=== PATIENT | male | born 1990 | race Caucasian/White ===

== ENCOUNTER 2020-08-21 13:03 | Outpatient (REF) | payer MEDICAID, SELFPAY ==
[2020-08-21 13:46] LABS: MANUAL DIFF FLAG NO
[2020-08-21 13:54] LABS: Basophils Percent Auto 0.4 % (0-2); Eosinophils Absolute Auto 0.2 X10*3/uL (0.0-0.4); Eosinophils Percent Auto 2.1 % (0-4); Hematocrit 34.7 % (42-52); Hemoglobin 11.7 g/dl (14.0-18.0); Imm Gran Abs Auto 0.06 X10*3/uL (0.00-0.03); Imm Gran Pct Auto 0.8 % (0.0-0.4); Lymphocytes Absolute Auto 1.3 X10*3/uL (1.2-4.9); Lymphocytes Percent Auto 18.7 % (20-40); Mean Corpuscular HGB Conc 33.7 g/dl (31.0-36.0); Mean Corpuscular Hemoglobin 32.8 pg (27.0-33.0); Mean Corpuscular Volume 97.2 fL (80-98); Mean Platelet Volume 8.7 fL (9.4-12.4); Monocytes Absolute Auto 0.6 X10*3/uL (0.1-1.2); Monocytes Percent Auto 7.7 % (2-11); Neutrophils Percent Auto 70.3 % (45-73); Platelet Count 207 X10*3/uL (160-400); Red Blood Count 3.57 X10*6/uL (4.60-5.80); Red Cell Distribution Width 11.6 % (11.0-16.0); White Blood Count 7.1 X10*3/uL (4.8-10.8)
[2020-08-21 14:11] LABS: Estimated Average Glucose 82 mg/dL; Hemoglobin A1c % 4.5 %
[2020-08-21 14:17] LABS: Valproate 57.3 mcg/mL (50.0-100.0)
[2020-08-21 16:08] LABS: Alanine Aminotransferase < 6 U/L (0-40); Albumin Level 4.1 g/dL (3.5-5.0); Alkaline Phosphatase 81 U/L (39-117); Aspartate Amino Transferase 12 U/L (5-37); Bilirubin Direct 0.3 mg/dL (0.0-0.5); Bilirubin Total 0.7 mg/dL (0.0-1.0)
== END 2020-08-21 13:04 | disposition home or self-care (01) ==
LOC: HO.LAB 13:03
PROVIDERS: Visit Provider Clinical Nurse Specialist Psychiatric/Mental Health
DX: Z79.899 Other long term (current) drug therapy (principal)
CPT/HCPCS: 36415; 80076; 80164; 83036; 85025

== ENCOUNTER 2020-12-04 17:59 | Emergency (ER) | payer MEDICAID, SELFPAY ==
--- NOTE | ~2020-12-04 | XR_ITS ---
EXAMINATION: XR ABDOMEN KUB CLINICAL INDICATION: Constipation COMPARISON: KUB February 23, 2011 TECHNIQUE: AP view of the abdomen. FINDINGS: No dilated air-filled loops of small bowel to suggest an obstructive process. Moderate stool burden throughout the majority the colon. Visualized lung bases are well aerated. No acute osseous abnormality. XR/XR KUB IMPRESSION: Moderate colonic stool burden suggesting constipation.
[2020-12-04 19:05] VITALS: BP 103/64; PULSE 79; RESP 16; TEMP 36.4; O2SAT 96; BMI 28.1
--- NOTE | 2020-12-04 23:01 | PC.NURSE ---
[phone] [facility] for ride home
[2020-12-04 23:03] VITALS: BP 107/61; PULSE 60; RESP 16; O2SAT 98
--- NOTE | 2020-12-04 23:26 | ED_ITS ---
HPI - General Adult General Chief complaint: General Medical Stated complaint: Constipation Time Seen by Provider: 12/04/20 23:26 Source: patient Mode of arrival: ambulatory History of Present Illness HPI narrative: 30-year-old male [facility] in [facility] a [facility] with more than 8 days of constipation, but patient states he has had an ongoing issue with constipation. He denies any associated fever, chills, nausea, vomiting, urinary pain /burning / frequency. He states he has tried everything . Related Data Allergies Allergy/AdvReac Type Severity Reaction Status Date / Time risperidone [From RISPERDAL] Allergy Unknown MUCLE Verified 12/04/20 19:14 TIGHTNESS Review of Systems Review of Systems: Pertinent positives and negatives as stated in HPI 10 point review of systems is otherwise negative. PMFSH Social History Social History Advance Directives: No Advance Directives Information Provided: Yes Physical Exam Vital Signs: Vital Signs: Last Vital Signs Temp 59 F L 12/05/20 01:17 Pulse 62 12/05/20 01:17 Resp 16 12/05/20 01:17 BP 116/69 12/05/20 01:17 Pulse Ox 98 12/05/20 01:17 Body Mass Index 28.1 VITAL SIGNS: Reviewed. GENERAL: Well developed, well nourished, in no acute distress. HEAD: Normocephalic/atraumatic EYES: PERRLA, EOMI OROPHARYNX: no oral lesions noted, posterior pharynx clear NECK: Supple, no adenopathy LUNGS: Normal breath sounds. No adventitious sounds or accessory muscle use. SpO2<98> CARDIOVASCULAR: Regular rate and rhythm without noted murmurs ABDOMEN: Soft, non-tender, non-distended with bowel sounds. NEUROLOGIC: Alert and oriented x 4. Course Course Course Narrative: This is a 30-year-old male with history and clinical presentation consistent with constipation. Patient will receive a combination of lactulose and Bisacodyl. On re-evaluation patient has not had a bowel movement after receiving Bisacodyl, and will receive lactulose prior to discharge so that he is able to use the bathroom in his regular setting. In addition, he will be provided with a regimen to improve regular bowel movements and instructed to follow-up with his primary care provider in the morning as there are no obstructive symptoms. Discharge Plan Discharge Clinical Impression: Constipation Patient Disposition: Home, Self-Care Instructions: Constipation (ED), Fleet Enema (ED), High Fiber Diet (ED) Additional Instructions: 1. resume all home medications as prescribed. 2. Increase your water intake. 3. You need to start taking MiraLax twice a day ( once in the morning and again in the evening). 4. You may use an [id number]-[id number] enema once a week to provide additional help in relieving your constipation. 5. You need to follow-up with your primary care provider in the morning to be re-evaluated and for further outpatient management for your constipation. Return to the ER if you develop fevers, chills, nausea, vomiting. Referrals: Diego Donohue PA [Primary Care Provider] - 2 days ( Please re-evaluate the patient for constipation.)
[2020-12-05] MEDS: bisacodyL 10 MG SUPP.RECT PR (00:28)
[2020-12-05 01:17] VITALS: BP 116/69; PULSE 62; RESP 16; TEMP 15; O2SAT 98
--- NOTE | 2020-12-05 02:04 | PC.NURSE ---
PATIENT HAVING NO EFFECT FROM THE SUPPOSITORY, PER MD AWAITING FOR DISCHARGE TO GIVE LACTULOSE. PLAN OF CARE WILL FOR FOR DISCHARGE TO LONG TERM.
[2020-12-05] MEDS: Lactulose 20 GM/30 ML SOLUTION PO (02:15)
== END 2020-12-05 02:49 | disposition home or self-care (01) ==
PROVIDERS: Emergency Provider Student in an Organized Health Care Education/Training Program; PCP Physician Assistant Medical
DX: K59.00 Constipation, unspecified (principal)
CPT/HCPCS: 74018; 99283; 99284

== ENCOUNTER 2021-06-30 20:29 | Inpatient (IN) | payer MEDICAID, OTHER, SELFPAY ==
--- NOTE | ~2021-06-30 | CT_ITS ---
EXAMINATION: CT HEAD WITHOUT CONTRAST CLINICAL INFORMATION: Head injury. COMPARISON: None TECHNIQUE: Contiguous axial imaging was performed from the skull base to vertex without intravenous administration of contrast. This CT examination was performed using dose optimization techniques as appropriate, variously including the following: *Automated exposure control *Adjustment of mA and/or kV according to patient size (this includes techniques or standardized protocols for targeted exams where dose is matched to indication/reason for exam; i.e. extremities or head) *Use of iterative reconstruction technique DLP: 765 mGy-cm FINDINGS: There is no evidence of acute intracranial hemorrhage or territorial infarction. No abnormal mass effect or midline shift is seen. Schuster to white matter differentiation is well preserved. No extra-axial fluid collections are identified. The ventricles are normal in size. There is no abnormal attenuation within the brain parenchyma. 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 This results in mild scalloping of the inner cortex of occipital bone. The osseous structures and soft tissues are normal. The mastoid air cells and visualized portions of the paranasal sinuses are well aerated. CT/CT head/brain wo con IMPRESSION: No acute intracranial process seen related to head injury. 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 Correlate with old CT brain exam, if available.
[2021-06-30 20:49] VITALS: BP 124/74; PULSE 102; RESP 20; TEMP 37.2; O2SAT 96; BMI 30.4
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
[2021-06-30 21:21] VITALS: TEMP 37.1
[2021-06-30 21:29] LABS: Appearance Urine CLEAR; Color Urine YELLOW; Glucose Urine UA NEG (NEG); Leukocyte Esterase Urine NEG (NEG); Nitrite Urine NEG (NEG); Specific Gravity - Urine 1.025 (1.005-1.025); Urine Blood NEG (NEG); Urine Ketones 5 MG/DL (NEG); Urine Protein NEG (NEG-TRACE)
[2021-06-30 21:34] LABS: COVID-19 Test Negative (Negative); IDNOW Serial# 9DD0AD1C
[2021-06-30 21:42] LABS: Amphetamine Screen Urine Not Detected (Not Detect); Barbiturates, Urine Not Detected (Not Detect); Benzodiazepines Screen Urine Not Detected (Not Detect); Cannabinoid Screen Urine Not Detected (Not Detect); Cocaine Screen Urine Not Detected (Not Detect); Fentanyl, urine Not Detected (Not Detect); Opiate Screen Urine Not Detected (Not Detect); Phencyclidine Screen Urine Not Detected (Not Detect)
[2021-06-30 23:15] LABS: MANUAL DIFF FLAG NO
[2021-06-30 23:19] LABS: Basophils Percent Auto 0.2 % (0-2); Eosinophils Absolute Auto 0.1 X10*3/uL (0.0-0.4); Eosinophils Percent Auto 1.3 % (0-4); Hematocrit 36.9 % (42.0-52.0); Hemoglobin 12.7 g/dl (14.0-18.0); Imm Gran Abs Auto 0.03 X10*3/uL (0.00-0.03); Imm Gran Pct Auto 0.3 % (0.0-0.4); Lymphocytes Absolute Auto 2.7 X10*3/uL (1.2-4.9); Mean Corpuscular HGB Conc 34.4 g/dl (31.0-36.0); Mean Corpuscular Hemoglobin 32.9 pg (27.0-33.0); Mean Corpuscular Volume 95.6 fL (80.0-98.0); Mean Platelet Volume 9.2 fL (9.4-12.4); Monocytes Absolute Auto 0.9 X10*3/uL (0.1-1.2); Monocytes Percent Auto 9.3 % (2-11); Neutrophils Absolute Auto 5.6 x10*3/uL (2.0-8.3); Neutrophils Percent Auto 59.9 % (45-73); Platelet Count 179 X10*3/uL (160-400); Red Blood Count 3.86 X10*6/uL (4.60-5.80); Red Cell Distribution Width 11.4 % (11.0-16.0); White Blood Count 9.3 X10*3/uL (4.8-10.8)
[2021-06-30 23:34] LABS: Alanine Aminotransferase 7 U/L (0-40); Albumin Level 3.6 g/dL (3.5-5.0); Alkaline Phosphatase 90 U/L (39-117); Anion Gap 12 (12-20); Aspartate Amino Transferase 11 U/L (5-37); Bilirubin Direct 0.2 mg/dL (0.0-0.5); Bilirubin Total 0.5 mg/dL (0.0-1.0); Blood Urea Nitrogen 18 mg/dL (9-16); Calcium 8.8 mg/dL (8.4-10.2); Carbon Dioxide 27 mmol/L (22-29); Chloride 105 mmol/L (96-108); Creatinine Clr Calc Pharmacy 102.1; Estimated Glomerular Filt Rate > 60; Glucose Random 99 mg/dL (60-115); Sodium 140 mmol/L (135-145); Total Protein 6.4 g/dL (6.5-8.0)
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
--- NOTE | 2021-07-01 07:17 | PC.NURSE ---
patient appears to remain asleep at present respirations are even and unlabored patient appears in no distress
[2021-07-01 08:18] VITALS: BP 114/67; PULSE 56; RESP 15; TEMP 36.4; O2SAT 98
[2021-07-01] MEDS: cloNIDine HCL 0.1 MG TABLET PO ×3 (08:50→20:15)
[2021-07-01] MEDS: Loratadine 10 MG TABLET PO (08:50)
[2021-07-01] MEDS: Divalproex Sodium 500 MG TABLET.DR PO (08:50)
[2021-07-01] MEDS: Omeprazole 40 MG CAPSULE.DR PO (08:50)
[2021-07-01] MEDS: FLUoxetine HCl 20 MG CAPSULE 40 MG PO (08:50)
[2021-07-01] MEDS: Divalproex Sodium 500 MG TABLET.DR 1000 MG PO (20:16)
[2021-07-01 20:33] VITALS: BP 120/80; PULSE 68; RESP 18; TEMP 36.2; O2SAT 100
--- NOTE | 2021-07-02 | ECG_ITS ---
Test Reason : med clearance Blood Pressure : / mmHG Vent. Rate : 052 BPM Atrial Rate : 052 BPM P-R Int : 138 ms QRS Dur : 096 ms QT Int : 446 ms P-R-T Axes : 010 039 021 degrees QTc Int : 414 ms Sinus bradycardia Otherwise normal ECG No previous ECGs available Referred By: Rodger Lane Electronically Signed By:ONI ALTMAN MD
--- NOTE | 2021-07-02 06:20 | PC.NURSE ---
Patient slept through the night, no distress observed/reported, behavior calm, quiet, and appropriate. Medication compliant, disposition per [facility] is section 12 inpatient bed search, no update on bed search, VSS, will continue to monitor.
[2021-07-02 06:35] VITALS: BP 107/58; PULSE 52; RESP 17; TEMP 37; O2SAT 95
--- NOTE | 2021-07-02 07:11 | PC.NURSE ---
patient appears to remain asleep presently respirations are even and unlabored, patient appears in no distress
[2021-07-02] MEDS: Loratadine 10 MG TABLET PO (08:40)
[2021-07-02] MEDS: Divalproex Sodium 500 MG TABLET.DR PO (08:40)
[2021-07-02] MEDS: FLUoxetine HCl 20 MG CAPSULE 40 MG PO (08:40)
[2021-07-02] MEDS: cloNIDine HCL 0.1 MG TABLET PO ×3 (08:41→22:11)
[2021-07-02] MEDS: Omeprazole 40 MG CAPSULE.DR PO (08:48)
--- NOTE | 2021-07-02 09:05 | PC.NURSE ---
t/w asked Kami white director of clients residence to bring in clients medication linzess so patient could be continued on it. Kami stated shed check with ditrector adn very likely drop off a supply. t/w asked her to call back should theres be any problems.
[2021-07-02 10:35] LABS: COVID-19 Test Negative (Negative); IDNOW Serial# 55D5AD1C
[2021-07-02 16:12] LABS: Valproate 69.9 mcg/mL (50.0-100.0)
[2021-07-02 16:35] VITALS: BMI 29.3
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
[2021-07-02 22:09] VITALS: BP 102/66; PULSE 62; TEMP 36.1; O2SAT 97
[2021-07-02] MEDS: Divalproex Sodium 500 MG TABLET.DR 1000 MG PO (22:11)
[2021-07-03 07:00] VITALS: BMI 29.5
[2021-07-03] MEDS: Omeprazole 40 MG CAPSULE.DR PO (08:13)
[2021-07-03] MEDS: cloNIDine HCL 0.1 MG TABLET PO ×2 (08:13→14:01)
[2021-07-03] MEDS: Loratadine 10 MG TABLET PO (08:13)
[2021-07-03] MEDS: FLUoxetine HCl 20 MG CAPSULE 40 MG PO (08:13)
[2021-07-03] MEDS: Divalproex Sodium 500 MG TABLET.DR PO (08:13)
[2021-07-03 08:15] VITALS: BP 143/85; PULSE 63; RESP 18; TEMP 36.9; O2SAT 98
[2021-07-03 09:16] LABS: Estimated Average Glucose 88 mg/dL; Hemoglobin A1c % 4.7 %
[2021-07-03 09:23] LABS: Cholesterol 181 mg/dL; HDL Cholesterol 34 mg/dL; LDL Cholesterol Calculated 108 mg/dl; Triglycerides 195 mg/dL
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
[2021-07-03 10:33] LABS: Folate 9.1 ng/mL (> or = 4.0); Vitamin B12 800 pg/mL (200-900)
[2021-07-03 13:06] LABS: Iron 221 mcg/dL (45-160); Percent Iron Saturation 54 % (15-50); Total Iron Binding Capacity 408 mcg/dL (228-428); Unsaturated Iron Binding 187 ug/dL
[2021-07-03 18:00] VITALS: BP 121/59; PULSE 48; RESP 16; TEMP 36.6; O2SAT 97
[2021-07-03] MEDS: Divalproex Sodium 500 MG TABLET.DR 1000 MG PO (21:26)
[2021-07-04] MEDS: Loratadine 10 MG TABLET PO (10:40)
[2021-07-04] MEDS: cloNIDine HCL 0.1 MG TABLET PO (10:40)
[2021-07-04] MEDS: Omeprazole 40 MG CAPSULE.DR PO (10:40)
[2021-07-04] MEDS: FLUoxetine HCl 20 MG CAPSULE 40 MG PO (10:41)
[2021-07-04] MEDS: Divalproex Sodium 500 MG TABLET.DR PO (10:41)
[2021-07-04 10:56] VITALS: BP 123/81; PULSE 92; RESP 16; TEMP 36.7; O2SAT 96
[2021-07-04] MEDS: Magnesium Hydrox/Alum Hydrox 30 ML ORAL.SUSP PO ×2 (12:33→22:52)
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
[2021-07-04] MEDS: hydrOXYzine HCL 25 MG TABLET PO (19:53)
[2021-07-04] MEDS: Divalproex Sodium 500 MG TABLET.DR 1000 MG PO (19:53)
[2021-07-04 19:55] VITALS: BP 134/66; PULSE 91; O2SAT 98
[2021-07-04] MEDS: traZODone HCL 50 MG TABLET PO ×2 (20:04→22:20)
[2021-07-05 08:14] LABS: Valproate 66.2 mcg/mL (50.0-100.0)
[2021-07-05 09:00] VITALS: BP 133/62; PULSE 92; RESP 16; TEMP 36.8; O2SAT 97
[2021-07-05] MEDS: Omeprazole 40 MG CAPSULE.DR PO (09:31)
[2021-07-05] MEDS: Divalproex Sodium 500 MG TABLET.DR PO (09:31)
[2021-07-05] MEDS: Loratadine 10 MG TABLET PO (09:31)
[2021-07-05] MEDS: FLUoxetine HCl 20 MG CAPSULE 40 MG PO (09:31)
--- NOTE | 2021-07-05 14:02 | P.PNPSI_ITS ---
Subjective Subjective Date of Service: 07/05/21 Reason For Visit: aggression Subjective Notes: Conditional Voluntary Interim History: The nursing staff reported that he was visible in the unit, social with peers. He has vomited a couple a times yesterday. He was incontinent in the shower yesterday. On interview, he refused to engage, on his bed. Mental Status Exam Mental Status Exam Patient Appearance: Appropriate Patient Orientation: Person Level of Consciousness: Awake Patient Behavior: Guarded Mood Description: Depressed Affect Description: Constricted Ability to Follow Directions: Fair Speech Pattern: Appropriate Hallucinations: None Delusions: Not Present Thought Process: Distracted Thought Content: positive for Poverty of Content Judgement: Fair Diagnostics Vital Signs (24Hr): Vital Signs - 24 hr 07/04/21 19:55 07/05/21 09:00 Temperature 98.3 F Pulse Rate 91 92 Respiratory Rate 16 Blood Pressure 134/66 133/62 Pulse Oximetry 98 97 BMI result Verdana 4 Body Mass Index Verdana 4 29.5 Verdana 4 Verdana 4 Labs Results: 06/30/21 23:10 06/30/21 23:10 Labs: Laboratory Results - last 48 hr 07/05/21 07:09 Valproic Acid 66.2 Medications Medications Current Medications Acetaminophen (Acetaminophen 325 Mg Tablet) 650 mg PO Q6H PRN PRN Reason: Headache/Pain Mild Scale (1-3) Al Hydroxide/Mg Hydroxide (Magnesium Hydrox/Alum Hydrox 30 Ml Oral.Susp) 30 ml PO Q6H PRN PRN Reason: Heartburn/Nausea Last Admin: 07/04/21 22:52 Dose: 30 ml Documented by: Divalproex Sodium (Divalproex Sodium 500 Mg Tablet.) 500 mg PO DAILY [facility] Last Admin: 07/05/21 09:31 Dose: 500 mg Documented by: Divalproex Sodium (Divalproex Sodium 500 Mg Tablet.) 1,000 mg PO BEDTIME [facility] Last Admin: 07/04/21 19:53 Dose: 1,000 mg Documented by: Fluoxetine HCl (Fluoxetine Hcl 20 Mg Capsule) 40 mg PO DAILY [facility] Last Admin: 07/05/21 09:31 Dose: 40 mg Documented by: Hydroxyzine HCl (Hydroxyzine Hcl 25 Mg Tablet) 25 mg PO Q6H PRN PRN Reason: Anxiety Last Admin: 07/04/21 19:53 Dose: 25 mg Documented by: Loratadine (Loratadine 10 Mg Tablet) 10 mg PO DAILY [facility] Last Admin: 07/05/21 09:31 Dose: 10 mg Documented by: Magnesium Hydroxide (Milk Of Magnesia 30 Ml Oral.Susp) 30 ml PO DAILY PRN PRN Reason: Constipation Patient Own Medication ( Linaclotide [Linzess ] 145 Mcg Capsule) 1 each PO DAILY [facility] Last Admin: 07/05/21 09:33 Dose: 1 each Documented by: Omeprazole (Omeprazole 40 Mg Capsule.) 40 mg PO DAILY [facility] Last Admin: 07/05/21 09:31 Dose: 40 mg Documented by: Quetiapine Fumarate (Quetiapine Fumarate 50 Mg Tablet) 50 mg PO BID PRN PRN Reason: psychosis Trazodone HCl (Trazodone Hcl 50 Mg Tablet) 50 mg PO BEDTIME PRN PRN Reason: Insomnia Last Admin: 07/04/21 22:20 Dose: 50 mg Documented by: Allergies Allergies Allergy/AdvReac Type Severity Reaction Status Date / Time risperidone [From Allergy Unknown MUCLE Verified 12/04/20 19:14 RISPERDAL] TIGHTNESS Assessment & Plan Assessment & Plan (1) Intellectual disability: Status: Acute Code(s): F79 - Unspecified intellectual disabilities (2) Intermittent explosive disorder in adult: Status: Acute Code(s): F63.81 - Intermittent explosive disorder Plan Mr. Medina is a 30 year-old male with hx of aggressive behaviors, impulsive at times, hx of intellectual disability. Pt was brought to [facility] via EMS after he reported HI towards female staff at . He also reported suicidal ideation. On the unit, pt reports reports of HI/SI was out of frustration. He is limited in that he has difficulty identifying triggers and effects of his behaviors. PLAN 1. Admit to M3, CV, 15 minutes checks 2. Continue depakote, check depakote level, adjust dose to therapeutic range, may add seroquel for aggression 3. Obtain collateral information 4. Aftercare planning 07/04: clonidine d/c due to dizziness. 07/05 bloodwork for tomorrow I spent minutes with the patient and/or on the patient floor today, greater than?50% of which was spent counseling/coordinating care. Reason for contiued inpatient stay Substantial Risk for: inability to function, rapid decompensation and med/psych decompensation
[2021-07-05] MEDS: Magnesium Hydrox/Alum Hydrox 30 ML ORAL.SUSP PO (20:34)
[2021-07-05 20:35] VITALS: BP 148/73; PULSE 84; TEMP 36.7; O2SAT 95
[2021-07-05] MEDS: Divalproex Sodium 500 MG TABLET.DR 1000 MG PO (21:34)
[2021-07-05] MEDS: hydrOXYzine HCL 25 MG TABLET PO (21:34)
[2021-07-05] MEDS: QUEtiapine Fumarate 50 MG TABLET PO (22:32)
[2021-07-06 06:44] LABS: MANUAL DIFF FLAG NO
[2021-07-06 06:47] LABS: Basophils Percent Auto 0.6 % (0-2); Eosinophils Absolute Auto 0.1 X10*3/uL (0.0-0.4); Hematocrit 37.3 % (42.0-52.0); Hemoglobin 13.2 g/dl (14.0-18.0); Imm Gran Abs Auto 0.06 X10*3/uL (0.00-0.03); Imm Gran Pct Auto 1.2 % (0.0-0.4); Lymphocytes Percent Auto 39.2 % (20-40); Mean Corpuscular HGB Conc 35.4 g/dl (31.0-36.0); Mean Corpuscular Hemoglobin 32.8 pg (27.0-33.0); Mean Corpuscular Volume 92.6 fL (80.0-98.0); Mean Platelet Volume 8.9 fL (9.4-12.4); Monocytes Absolute Auto 0.5 X10*3/uL (0.1-1.2); Monocytes Percent Auto 10.4 % (2-11); Neutrophils Absolute Auto 2.4 x10*3/uL (2.0-8.3); Neutrophils Percent Auto 46.6 % (45-73); Platelet Count 168 X10*3/uL (160-400); Red Blood Count 4.03 X10*6/uL (4.60-5.80); Red Cell Distribution Width 11.3 % (11.0-16.0); White Blood Count 5.1 X10*3/uL (4.8-10.8)
[2021-07-06 07:08] LABS: Anion Gap 12 (12-20); Blood Urea Nitrogen 14 mg/dL (9-16); Calcium 9.2 mg/dL (8.4-10.2); Carbon Dioxide 28 mmol/L (22-29); Chloride 102 mmol/L (96-108); Estimated Glomerular Filt Rate > 60; Glucose Random 90 mg/dL (60-115); Potassium 3.9 mmol/L (3.3-5.1); Sodium 138 mmol/L (135-145)
[2021-07-06 07:10] LABS: Valproate 73.8 mcg/mL (50.0-100.0)
[2021-07-06 08:30] VITALS: BP 131/63; PULSE 80; RESP 16; TEMP 36.8; O2SAT 95
[2021-07-06] MEDS: Divalproex Sodium 500 MG TABLET.DR PO (09:40)
[2021-07-06] MEDS: QUEtiapine Fumarate 50 MG TABLET PO ×2 (09:40→20:53)
[2021-07-06] MEDS: FLUoxetine HCl 20 MG CAPSULE 40 MG PO (09:40)
[2021-07-06] MEDS: Omeprazole 40 MG CAPSULE.DR PO (09:40)
[2021-07-06] MEDS: Loratadine 10 MG TABLET PO (09:40)
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
[2021-07-06] MEDS: hydrOXYzine HCL 25 MG TABLET PO (20:53)
[2021-07-06] MEDS: Magnesium Hydrox/Alum Hydrox 30 ML ORAL.SUSP PO (20:53)
[2021-07-06] MEDS: Divalproex Sodium 500 MG TABLET.DR 1000 MG PO (20:53)
[2021-07-06] MEDS: traZODone HCL 50 MG TABLET PO (20:53)
[2021-07-07 08:00] VITALS: BP 138/87; PULSE 100; TEMP 36.4; O2SAT 96
[2021-07-07] MEDS: FLUoxetine HCl 20 MG CAPSULE 40 MG PO (09:27)
[2021-07-07] MEDS: Omeprazole 40 MG CAPSULE.DR PO (09:28)
[2021-07-07] MEDS: Divalproex Sodium 500 MG TABLET.DR PO (09:28)
[2021-07-07] MEDS: Loratadine 10 MG TABLET PO (09:28)
--- NOTE | 2021-07-07 15:18 | HO.PSYCHPN ---
Subjective Subjective Date of Service: 07/07/21 Reason For Visit: aggression Subjective Notes: Conditional Voluntary Interim History: Pt reports he had difficult weekend as he had voices, which apparently per his mother is new concern. Pt reports feeling depressed, passive SI but denies any plan or intent to hurt himself. He reports sleeping and eating well. Pt has been mostly in his room, encouraged to attend groups. Medication Compliance: Yes Review of Systems Review of Systems Constitutional : No Fever, No Chills ENT/Mouth : No Ear Pain, No Nasal Congestion, No sore throat Eyes: No Eye Pain, No Swelling, No Redness Cardiovascular : No Chest Pain, No SOB Respiratory : No Cough, No Sputum, No Dyspnea Gastrointestinal : No Nausea, No Vomiting, No Diarrhea, No Hematochezia, No Melena Genitourinary : No Dysuria, No Urinary Frequency, No Hematuria Musculoskeletal : No Myalgias Skin : No Skin Lesions, No rash Neuro : No Weakness, No Numbness, No Paresthesias, No Dizziness, No Headache Psych : no Anxiety,no Depression, no SI/HI Heme/Lymph: No Lymphadenopathy Endocrine : No Polyuria, No Polydipsia All other systems reviewed and are negative Constitutional: Reports no additional constitutional complaints Eyes: Reports no additional eye complaints Cardiovascular: Denies chest pain, Denies chest pain at rest, Denies diaphoresis, Denies lightheadedness and Denies dyspnea Respiratory: Denies dyspnea Gastrointestinal: Denies diarrhea Mental Status Exam Mental Status Exam Narrative: Appearance: casually groomed, fair hygiene in NAD Behavior:cooperative psychomotor: no agitation or retardation noted Speech: clear, normal rate/rhythm/volume, spontaneous Thought process: linear Thought content:no signs of psychosis, wanting to go to new where friend lives Mood: okay Affect: congruent, non labile SI:denies HI:denies VH/AH:denies Delusions:none Insight/judgment:poor x 2. Memory/cog: alert, oriented x 3. underlying intellectual disability. Diagnostics Vital Signs (24Hr): Vital Signs - 24 hr 07/07/21 08:00 Temperature 97.5 F Pulse Rate 100 Blood Pressure 138/87 Pulse Oximetry 96 BMI result Body Mass Index 29.5 Labs Results: 07/06/21 06:39 07/06/21 06:39 Labs: Laboratory Results - last 48 hr 07/06/21 07/06/21 06:39 06:39 WBC 5.1 RBC 4.03 L Hgb 13.2 L Hct 37.3 L MCV 92.6 MCH 32.8 MCHC 35.4 RDW 11.3 Plt Count 168 MPV 8.9 L Immature Gran % (Auto) 1.2 H Neut % (Auto) 46.6 Lymph % (Auto) 39.2 Woodruff % (Auto) 10.4 Eos % (Auto) 2.0 Baso % (Auto) 0.6 Lymph # (Auto) 2.0 Woodruff # (Auto) 0.5 Eos # (Auto) 0.1 Baso # (Auto) 0.0 Abs Immat Gran (auto) 0.06 H Absolute Neuts (auto) 2.4 Absolute Nucleated RBC 0.000 Nucleated RBC % (auto) 0.0 Sodium 138 Potassium 3.9 Chloride 102 Carbon Dioxide 28 Anion Gap 12 BUN 14 Creatinine 0.91 Estim Creat Clear Calc 125.0 Estimated GFR > 60 Random Glucose 90 Calcium 9.2 Valproic Acid 73.8 Medications Medications Current Medications Acetaminophen (Acetaminophen 325 Mg Tablet) 650 mg PO Q6H PRN PRN Reason: Headache/Pain Mild Scale (1-3) Al Hydroxide/Mg Hydroxide (Magnesium Hydrox/Alum Hydrox 30 Ml Oral.Susp) 30 ml PO Q6H PRN PRN Reason: Heartburn/Nausea Last Admin: 07/06/21 20:53 Dose: 30 ml Documented by: Divalproex Sodium (Divalproex Sodium 500 Mg Tablet.) 500 mg PO DAILY [facility] Last Admin: 07/07/21 09:28 Dose: 500 mg Documented by: Divalproex Sodium (Divalproex Sodium 500 Mg Tablet.) 1,000 mg PO BEDTIME [facility] Last Admin: 07/06/21 20:53 Dose: 1,000 mg Documented by: Fluoxetine HCl (Fluoxetine Hcl 20 Mg Capsule) 40 mg PO DAILY [facility] Last Admin: 07/07/21 09:27 Dose: 40 mg Documented by: Hydroxyzine HCl (Hydroxyzine Hcl 25 Mg Tablet) 25 mg PO Q6H PRN PRN Reason: Anxiety Last Admin: 07/06/21 20:53 Dose: 25 mg Documented by: Loratadine (Loratadine 10 Mg Tablet) 10 mg PO DAILY [facility] Last Admin: 07/07/21 09:28 Dose: 10 mg Documented by: Magnesium Hydroxide (Milk Of Magnesia 30 Ml Oral.Susp) 30 ml PO DAILY PRN PRN Reason: Constipation Patient Own Medication ( Linaclotide [Linzess ] 145 Mcg Capsule) 1 each PO DAILY [facility] Last Admin: 07/07/21 09:28 Dose: 1 each Documented by: Omeprazole (Omeprazole 40 Mg Capsule.) 40 mg PO DAILY [facility] Last Admin: 07/07/21 09:28 Dose: 40 mg Documented by: Quetiapine Fumarate (Quetiapine Fumarate 50 Mg Tablet) 50 mg PO BID PRN PRN Reason: psychosis Last Admin: 07/06/21 20:53 Dose: 50 mg Documented by: Trazodone HCl (Trazodone Hcl 50 Mg Tablet) 50 mg PO BEDTIME PRN PRN Reason: Insomnia Last Admin: 07/06/21 20:53 Dose: 50 mg Documented by: Allergies Allergies Allergy/AdvReac Type Severity Reaction Status Date / Time risperidone [From RISPERDAL] Allergy Unknown MUCLE Verified 12/04/20 19:14 TIGHTNESS Assessment & Plan Assessment & Plan (1) Intellectual disability: Status: Acute Code(s): F79 - Unspecified intellectual disabilities (2) Intermittent explosive disorder in adult: Status: Acute Code(s): F63.81 - Intermittent explosive disorder Plan Mr. Medina is a 30 year-old male with hx of aggressive behaviors, impulsive at times, hx of intellectual disability. Pt was brought [place] [facility] via [place] after he reported HI towards female staff at . He also reported suicidal ideation. On the unit, pt reports reports of HI/SI was out of frustration. He is limited in that he has difficulty identifying triggers and effects of his behaviors. PLAN 1. Admit to M3, CV, 15 minutes checks 2. Continue depakote, check depakote level, adjust dose to therapeutic range, may add seroquel for aggression 3. Obtain collateral information 4. Aftercare planning 07/04: clonidine d/c due to dizziness. 07/05 bloodwork wnl, therapeutic level of VALP. 07/07 scheduled seroquel 100mg po qhs and prn seroquel 50mg po q6hrs. I spent minutes with the patient and/or on the patient floor today, greater than?50% of which was spent counseling/coordinating care. Reason for contiued inpatient stay Substantial Risk for: harm to self and harm to others
[2021-07-07] MEDS: QUEtiapine Fumarate 100 MG TABLET PO (23:06)
[2021-07-07] MEDS: Divalproex Sodium 500 MG TABLET.DR 1000 MG PO (23:06)
[2021-07-07 23:12] VITALS: BP 129/75; PULSE 86; TEMP 36.9; O2SAT 97
[2021-07-08 06:00] VITALS: BP 125/60; PULSE 75; RESP 16; TEMP 36.8; O2SAT 98
[2021-07-08] MEDS: Loratadine 10 MG TABLET PO (10:11)
[2021-07-08] MEDS: Omeprazole 40 MG CAPSULE.DR PO (10:12)
[2021-07-08] MEDS: FLUoxetine HCl 20 MG CAPSULE 40 MG PO (10:12)
[2021-07-08] MEDS: Divalproex Sodium 500 MG TABLET.DR PO (10:12)
--- NOTE | 2021-07-08 11:11 | P.PNPSI_ITS ---
Subjective Subjective Date of Service: 07/08/21 Reason For Visit: aggression Subjective Notes: Conditional Voluntary Interim History: Pt reports sleeping better last night. He reports less AH. He denies SI/HI. He has been mostly in bed, encouraged to attend groups. He is taking medications as prescribed, reports he will be open to return to . Per nursing, no behavioral concerns, taking medications as prescribed. Medication Compliance: Yes Side effects from medications: No Attending Groups: Intermittent Review of Systems Review of Systems Constitutional : No Fever, No Chills ENT/Mouth : No Ear Pain, No Nasal Congestion, No sore throat Eyes: No Eye Pain, No Swelling, No Redness Cardiovascular : No Chest Pain, No SOB Respiratory : No Cough, No Sputum, No Dyspnea Gastrointestinal : No Nausea, No Vomiting, No Diarrhea, No Hematochezia, No Melena Genitourinary : No Dysuria, No Urinary Frequency, No Hematuria Musculoskeletal : No Myalgias Skin : No Skin Lesions, No rash Neuro : No Weakness, No Numbness, No Paresthesias, No Dizziness, No Headache Psych : no Anxiety,no Depression, no SI/HI Heme/Lymph: No Lymphadenopathy Endocrine : No Polyuria, No Polydipsia All other systems reviewed and are negative Constitutional: Reports no additional constitutional complaints Eyes: Reports no additional eye complaints Cardiovascular: Denies chest pain, Denies chest pain at rest, Denies diaphoresis, Denies lightheadedness and Denies dyspnea Respiratory: Denies dyspnea Gastrointestinal: Denies diarrhea Mental Status Exam Mental Status Exam Narrative: Appearance: casually groomed, fair hygiene in NAD Behavior:cooperative psychomotor: no agitation or retardation noted Speech: clear, normal rate/rhythm/volume, spontaneous Thought process: linear Thought content:no signs of psychosis, wanting to go to new where friend lives Mood: okay Affect: congruent, non labile SI:denies HI:denies VH/AH:denies Delusions:none Insight/judgment:poor x 2. Memory/cog: alert, oriented x 3. underlying intellectual disability. Diagnostics Vital Signs (24Hr): Vital Signs - 24 hr 07/07/21 23:12 Temperature 98.4 F Pulse Rate 86 Blood Pressure 129/75 Pulse Oximetry 97 BMI result Verdana 4 Body Mass Index Verdana 4 29.5 Verdana 4 Verdana 4 Labs Results: 07/06/21 06:39 07/06/21 06:39 Medications Medications Current Medications Acetaminophen (Acetaminophen 325 Mg Tablet) 650 mg PO Q6H PRN PRN Reason: Headache/Pain Mild Scale (1-3) Al Hydroxide/Mg Hydroxide (Magnesium Hydrox/Alum Hydrox 30 Ml Oral.Susp) 30 ml PO Q6H PRN PRN Reason: Heartburn/Nausea Last Admin: 07/06/21 20:53 Dose: 30 ml Documented by: Divalproex Sodium (Divalproex Sodium 500 Mg Tablet.) 500 mg PO DAILY [facility] Last Admin: 07/08/21 10:12 Dose: 500 mg Documented by: Divalproex Sodium (Divalproex Sodium 500 Mg Tablet.) 1,000 mg PO BEDTIME [facility] Last Admin: 07/07/21 23:06 Dose: 1,000 mg Documented by: Fluoxetine HCl (Fluoxetine Hcl 20 Mg Capsule) 40 mg PO DAILY [facility] Last Admin: 07/08/21 10:12 Dose: 40 mg Documented by: Hydroxyzine HCl (Hydroxyzine Hcl 25 Mg Tablet) 25 mg PO Q6H PRN PRN Reason: Anxiety Last Admin: 07/06/21 20:53 Dose: 25 mg Documented by: Loratadine (Loratadine 10 Mg Tablet) 10 mg PO DAILY [facility] Last Admin: 07/08/21 10:11 Dose: 10 mg Documented by: Magnesium Hydroxide (Milk Of Magnesia 30 Ml Oral.Susp) 30 ml PO DAILY PRN PRN Reason: Constipation Patient Own Medication ( Linaclotide [Linzess ] 145 Mcg Capsule) 1 each PO DAILY [facility] Last Admin: 07/08/21 10:11 Dose: 1 each Documented by: Omeprazole (Omeprazole 40 Mg Capsule.) 40 mg PO DAILY [facility] Last Admin: 07/08/21 10:12 Dose: 40 mg Documented by: Quetiapine Fumarate (Quetiapine Fumarate 50 Mg Tablet) 50 mg PO Q6H PRN PRN Reason: psychosis/anxiety Quetiapine Fumarate (Quetiapine Fumarate 100 Mg Tablet) 100 mg PO BEDTIME [facility] Last Admin: 07/07/21 23:06 Dose: 100 mg Documented by: Trazodone HCl (Trazodone Hcl 50 Mg Tablet) 50 mg PO BEDTIME PRN PRN Reason: Insomnia Last Admin: 07/06/21 20:53 Dose: 50 mg Documented by: Allergies Allergies Allergy/AdvReac Type Severity Reaction Status Date / Time risperidone [From Allergy Unknown MUCLE Verified 12/04/20 19:14 RISPERDAL] TIGHTNESS Assessment & Plan Assessment & Plan (1) Intellectual disability: Status: Acute Code(s): F79 - Unspecified intellectual disabilities (2) Intermittent explosive disorder in adult: Status: Acute Code(s): F63.81 - Intermittent explosive disorder Plan Mr. Medina is a 30 year-old male with hx of aggressive behaviors, impulsive at times, hx of intellectual disability. Pt was brought to [facility] via EMS after he reported HI towards female staff at . He also reported suicidal ideation. On the unit, pt reports reports of HI/SI was out of frustration. He is limited in that he has difficulty identifying triggers and effects of his behaviors. PLAN 1. Admit to M3, CV, 15 minutes checks 2. Continue depakote, check depakote level, adjust dose to therapeutic range, may add seroquel for aggression 3. Obtain collateral information 4. Aftercare planning 07/04: clonidine d/c due to dizziness. 07/05 bloodwork wnl, therapeutic level of VALP. 07/07 scheduled seroquel 100mg po qhs and prn seroquel 50mg po q6hrs. I spent minutes with the patient and/or on the patient floor today, greater than?50% of which was spent counseling/coordinating care. Reason for contiued inpatient stay Substantial Risk for: harm to others
[2021-07-08 21:00] VITALS: BP 134/86; PULSE 88; RESP 18; TEMP 36.9; O2SAT 96
[2021-07-08] MEDS: Divalproex Sodium 500 MG TABLET.DR 1000 MG PO (21:24)
[2021-07-08] MEDS: QUEtiapine Fumarate 100 MG TABLET PO (21:24)
[2021-07-09] MEDS: FLUoxetine HCl 20 MG CAPSULE 40 MG PO (08:14)
[2021-07-09] MEDS: Omeprazole 40 MG CAPSULE.DR PO (08:14)
[2021-07-09] MEDS: Loratadine 10 MG TABLET PO (08:14)
[2021-07-09] MEDS: Divalproex Sodium 500 MG TABLET.DR PO (08:14)
[2021-07-09 08:15] VITALS: BP 121/76; PULSE 86; RESP 16; TEMP 36.7; O2SAT 99
[2021-07-09 11:37] VITALS: BP 134/72; PULSE 90; RESP 17; TEMP 36.6; O2SAT 97
--- NOTE | 2021-07-09 11:38 | PC.NURSE ---
PT was found on the floor by staff doing checks. Pt reports that he was walking to his bed from the bathroom when he fell, he states he was sitting down and fell to the floor between the wall and his bed. VSS. Pt reports that he has been feeling more dizzy the past few days and felt dizzy when he fell. Provider notified.
[2021-07-09] MEDS: Acetaminophen 325 MG TABLET 650 MG PO (12:08)
--- NOTE | 2021-07-09 13:33 | HO.PSYCHPN ---
Subjective Subjective Date of Service: 07/09/21 Reason For Visit: aggression Subjective Notes: Conditional Voluntary Interim History: Pt reports sleeping well last night. He continues to report intermittent AH, at times voices tell him to harm self. He denies any plan or intent to do so. He has been visible in unit, social with select peers. Pt reports dizziness. No ortho HOTN. Pt had mechanical fall, no injury to the head. He denies SI/HI. Medication Compliance: Yes Side effects from medications: No Attending Groups: Intermittent Review of Systems Review of Systems Constitutional : No Fever, No Chills ENT/Mouth : No Ear Pain, No Nasal Congestion, No sore throat Eyes: No Eye Pain, No Swelling, No Redness Cardiovascular : No Chest Pain, No SOB Respiratory : No Cough, No Sputum, No Dyspnea Gastrointestinal : No Nausea, No Vomiting, No Diarrhea, No Hematochezia, No Melena Genitourinary : No Dysuria, No Urinary Frequency, No Hematuria Musculoskeletal : No Myalgias Skin : No Skin Lesions, No rash Neuro : No Weakness, No Numbness, No Paresthesias, No Dizziness, No Headache Psych : no Anxiety,no Depression, no SI/HI Heme/Lymph: No Lymphadenopathy Endocrine : No Polyuria, No Polydipsia All other systems reviewed and are negative Constitutional: Reports no additional constitutional complaints Eyes: Reports no additional eye complaints Cardiovascular: Denies chest pain, Denies chest pain at rest, Denies diaphoresis, Denies lightheadedness and Denies dyspnea Respiratory: Denies dyspnea Gastrointestinal: Denies diarrhea Mental Status Exam Mental Status Exam Narrative: Appearance: casually groomed, fair hygiene in NAD Behavior:cooperative psychomotor: no agitation or retardation noted Speech: clear, normal rate/rhythm/volume, spontaneous Thought process: linear Thought content:no signs of psychosis, wanting to go to [place] [facility] where friend lives Mood: okay Affect: congruent, non labile SI:denies HI:denies VH/AH:denies Delusions:none Insight/judgment:poor x 2. Memory/cog: alert, oriented x 3. underlying intellectual disability. Diagnostics Vital Signs (24Hr): Vital Signs - 24 hr 07/08/21 21:00 07/09/21 11:37 Temperature 98.4 F 97.9 F Pulse Rate 88 90 Respiratory Rate 18 17 Blood Pressure 134/86 134/72 Pulse Oximetry 96 97 BMI result Body Mass Index 29.5 Labs Results: 07/06/21 06:39 07/06/21 06:39 Imaging Radiology Impressions: ITS Impressions Head CT 07/08/21 14:20 IMPRESSION: No acute intracranial process seen related to head injury. 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 Correlate with old CT brain exam, if available. Medications Medications Current Medications Acetaminophen (Acetaminophen 325 Mg Tablet) 650 mg PO Q6H PRN PRN Reason: Headache/Pain Mild Scale (1-3) Last Admin: 07/09/21 12:08 Dose: 650 mg Documented by: Al Hydroxide/Mg Hydroxide (Magnesium Hydrox/Alum Hydrox 30 Ml Oral.Susp) 30 ml PO Q6H PRN PRN Reason: Heartburn/Nausea Last Admin: 07/06/21 20:53 Dose: 30 ml Documented by: Divalproex Sodium (Divalproex Sodium 500 Mg Tablet.) 500 mg PO DAILY [facility] Last Admin: 07/09/21 08:14 Dose: 500 mg Documented by: Divalproex Sodium (Divalproex Sodium 500 Mg Tablet.) 1,000 mg PO BEDTIME [facility] Last Admin: 07/08/21 21:24 Dose: 1,000 mg Documented by: Fluoxetine HCl (Fluoxetine Hcl 20 Mg Capsule) 40 mg PO DAILY [facility] Last Admin: 07/09/21 08:14 Dose: 40 mg Documented by: Hydroxyzine HCl (Hydroxyzine Hcl 25 Mg Tablet) 25 mg PO Q6H PRN PRN Reason: Anxiety Last Admin: 07/06/21 20:53 Dose: 25 mg Documented by: Loratadine (Loratadine 10 Mg Tablet) 10 mg PO DAILY [facility] Last Admin: 07/09/21 08:14 Dose: 10 mg Documented by: Magnesium Hydroxide (Milk Of Magnesia 30 Ml Oral.Susp) 30 ml PO DAILY PRN PRN Reason: Constipation Patient Own Medication ( Linaclotide [Linzess ] 145 Mcg Capsule) 1 each PO DAILY [facility] Last Admin: 07/09/21 08:13 Dose: 1 each Documented by: Omeprazole (Omeprazole 40 Mg Capsule.) 40 mg PO DAILY [facility] Last Admin: 07/09/21 08:14 Dose: 40 mg Documented by: Quetiapine Fumarate (Quetiapine Fumarate 50 Mg Tablet) 50 mg PO Q6H PRN PRN Reason: psychosis/anxiety Quetiapine Fumarate (Quetiapine Fumarate 100 Mg Tablet) 100 mg PO BEDTIME [facility] Last Admin: 07/08/21 21:24 Dose: 100 mg Documented by: Trazodone HCl (Trazodone Hcl 50 Mg Tablet) 50 mg PO BEDTIME PRN PRN Reason: Insomnia Last Admin: 07/06/21 20:53 Dose: 50 mg Documented by: Allergies Allergies Allergy/AdvReac Type Severity Reaction Status Date / Time risperidone [From RISPERDAL] Allergy Unknown MUCLE Verified 12/04/20 19:14 TIGHTNESS Assessment & Plan Assessment & Plan (1) Intellectual disability: Status: Acute Code(s): F79 - Unspecified intellectual disabilities (2) Intermittent explosive disorder in adult: Status: Acute Code(s): F63.81 - Intermittent explosive disorder Plan Mr. Medina is a 30 year-old male with hx of aggressive behaviors, impulsive at times, hx of intellectual disability. Pt was brought to [facility] via EMS after he reported HI towards female staff at . He also reported suicidal ideation. On the unit, pt reports reports of HI/SI was out of frustration. He is limited in that he has difficulty identifying triggers and effects of his behaviors. PLAN 1. Admit to M3, CV, 15 minutes checks 2. Continue depakote, check depakote level, adjust dose to therapeutic range, may add seroquel for aggression 3. Obtain collateral information 4. Aftercare planning 07/04: clonidine d/c due to dizziness. 07/05 bloodwork wnl, therapeutic level of VALP. 07/07 scheduled seroquel 100mg po qhs and prn seroquel 50mg po q6hrs. I spent minutes with the patient and/or on the patient floor today, greater than?50% of which was spent counseling/coordinating care. Reason for contiued inpatient stay Substantial Risk for: inability to function
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
[2021-07-09 15:52] LABS: Ammonia 31 umol/L (13-55)
[2021-07-09 20:00] VITALS: BP 138/96; PULSE 85; TEMP 36.4; O2SAT 97
[2021-07-09] MEDS: Divalproex Sodium 500 MG TABLET.DR 1000 MG PO (21:27)
[2021-07-09] MEDS: QUEtiapine Fumarate 100 MG TABLET PO (21:27)
[2021-07-09] MEDS: traZODone HCL 50 MG TABLET PO (23:42)
[2021-07-09] MEDS: Magnesium Hydrox/Alum Hydrox 30 ML ORAL.SUSP PO (23:42)
[2021-07-10 07:00] VITALS: BMI 28.4
[2021-07-10 09:43] VITALS: BP 147/94; PULSE 98; RESP 17; TEMP 37; O2SAT 94
[2021-07-10] MEDS: Loratadine 10 MG TABLET PO (09:52)
[2021-07-10] MEDS: FLUoxetine HCl 20 MG CAPSULE 40 MG PO (09:52)
[2021-07-10] MEDS: Divalproex Sodium 500 MG TABLET.DR PO (09:52)
[2021-07-10] MEDS: Omeprazole 40 MG CAPSULE.DR PO (09:52)
--- NOTE | 2021-07-10 10:42 | P.PNPSI_ITS ---
Subjective Subjective Date of Service: 07/10/21 Reason For Visit: aggression Subjective Notes: Conditional Voluntary Interim History: Pt has been visible in the unit. He is seen smiling and socializing with peers. He appears very pleasant. He reports his mood is better. he denies SI/HI. he denies hearing voices. He had fall yesterday and requested 1:1, falls and unsteady gait not new for him. Medication Compliance: Yes Side effects from medications: No Review of Systems Review of Systems No recent seizure-like episode or cold or flu-like illness Constitutional: Reports no additional constitutional complaints Eyes: Reports no additional eye complaints Cardiovascular: Denies chest pain, Denies chest pain at rest, Denies diaphoresis, Denies lightheadedness and Denies dyspnea Respiratory: Denies dyspnea Gastrointestinal: Denies diarrhea Mental Status Exam Mental Status Exam Narrative: Appearance: casually groomed, fair hygiene in NAD Behavior:cooperative psychomotor: no agitation or retardation noted Speech: clear, normal rate/rhythm/volume, spontaneous Thought process: linear Thought content:no signs of psychosis, wanting to go to [place] [facility] where friend lives Mood: okay Affect: congruent, non labile SI:denies HI:denies VH/AH:denies Delusions:none Insight/judgment:poor x 2. Memory/cog: alert, oriented x 3. underlying intellectual disability. Diagnostics Vital Signs (24Hr): Vital Signs - 24 hr 07/09/21 20:00 07/10/21 09:43 Temperature 97.6 F 98.6 F Pulse Rate 85 98 Respiratory Rate 17 Blood Pressure 138/96 H 147/94 H Pulse Oximetry 97 94 BMI result Verdana 4 Body Mass Index Verdana 4 28.4 Verdana 4 Verdana 4 Labs Results: 07/06/21 06:39 07/06/21 06:39 Labs: Laboratory Results - last 48 hr 07/09/21 15:33 Ammonia 31 Imaging Radiology Impressions: ITS Impressions Head CT 07/08/21 14:20 IMPRESSION: No acute intracranial process seen related to head injury. 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 Correlate with old CT brain exam, if available. Medications Medications Current Medications Acetaminophen (Acetaminophen 325 Mg Tablet) 650 mg PO Q6H PRN PRN Reason: Headache/Pain Mild Scale (1-3) Last Admin: 07/09/21 12:08 Dose: 650 mg Documented by: Al Hydroxide/Mg Hydroxide (Magnesium Hydrox/Alum Hydrox 30 Ml Oral.Susp) 30 ml PO Q6H PRN PRN Reason: Heartburn/Nausea Last Admin: 07/09/21 23:42 Dose: 30 ml Documented by: Divalproex Sodium (Divalproex Sodium 500 Mg Tablet.) 500 mg PO DAILY [facility] Last Admin: 07/10/21 09:52 Dose: 500 mg Documented by: Divalproex Sodium (Divalproex Sodium 500 Mg Tablet.) 1,000 mg PO BEDTIME [facility] Last Admin: 07/09/21 21:27 Dose: 1,000 mg Documented by: Fluoxetine HCl (Fluoxetine Hcl 20 Mg Capsule) 40 mg PO DAILY [facility] Last Admin: 07/10/21 09:52 Dose: 40 mg Documented by: Hydroxyzine HCl (Hydroxyzine Hcl 25 Mg Tablet) 25 mg PO Q6H PRN PRN Reason: Anxiety Last Admin: 07/06/21 20:53 Dose: 25 mg Documented by: Loratadine (Loratadine 10 Mg Tablet) 10 mg PO DAILY [facility] Last Admin: 07/10/21 09:52 Dose: 10 mg Documented by: Magnesium Hydroxide (Milk Of Magnesia 30 Ml Oral.Susp) 30 ml PO DAILY PRN PRN Reason: Constipation Patient Own Medication ( Linaclotide [Linzess ] 145 Mcg Capsule) 1 each PO DAILY [facility] Last Admin: 07/10/21 09:51 Dose: 1 each Documented by: Omeprazole (Omeprazole 40 Mg Capsule.) 40 mg PO DAILY [facility] Last Admin: 07/10/21 09:52 Dose: 40 mg Documented by: Quetiapine Fumarate (Quetiapine Fumarate 50 Mg Tablet) 50 mg PO Q6H PRN PRN Reason: psychosis/anxiety Quetiapine Fumarate (Quetiapine Fumarate 100 Mg Tablet) 100 mg PO BEDTIME [facility] Last Admin: 07/09/21 21:27 Dose: 100 mg Documented by: Trazodone HCl (Trazodone Hcl 50 Mg Tablet) 50 mg PO BEDTIME PRN PRN Reason: Insomnia Last Admin: 07/09/21 23:42 Dose: 50 mg Documented by: Allergies Allergies Allergy/AdvReac Type Severity Reaction Status Date / Time risperidone [From Allergy Unknown MUCLE Verified 06/30/21 19:14 RISPERDAL] TIGHTNESS Assessment & Plan Assessment & Plan (1) Chronic static encephalopathy: Status: Acute Code(s): G93.49 - Other encephalopathy Assessment and Plan: 30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 Details of his childhood and any neuropsychiatric conditions diagnosed at that time were not known. His examination revealed mild spasticity of legs with hyperreflexia. His head CT has number of findings. The 1st finding to discuss his right inferior frontal encephalomalacia, which probably had happened from trauma. This type of trauma happens more in alcoholics, though that is not the only reason. 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 Underneath, I also see significant frontal and parietal cortical atrophy. The cause for this could be genetic as drug use or alcohol alone may not explain the extent of atrophy. But aggressive alcoholism or prolong exposure to heavy use of alcohol can cause similar changes. More commonly though, these type of changes happen from congenital causes and patients usually have significant psychiatric illnesses such as bipolar disorder. 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 There is no particular or specific treatment for this type of brain pathology. Mainstay of management is symptomatic treatment knowing that the most difficult element of his presentation could be frontal lobe behavioral syndrome, for which no specific treatment existed. Patients like him or also at risk of having seizure disorder though I am not sure if he ever had seizures. At least his caretakers are family should be educated about his conditions. (2) Traumatic brain injury: Status: Acute Code(s): S06.9X9A - Unspecified intracranial injury with loss of consciousness of unspecified duration, initial encounter (3) Intellectual disability: Status: Acute Code(s): F79 - Unspecified intellectual disabilities (4) Intermittent explosive disorder in adult: Status: Acute Code(s): F63.81 - Intermittent explosive disorder Plan Mr. Medina is a 30 year-old male with hx of aggressive behaviors, impulsive at times, hx of intellectual disability. Pt was brought to [facility] via EMS after he reported HI towards female staff at . He also reported suicidal ideation. On the unit, pt reports reports of HI/SI was out of frustration. He is limited in that he has difficulty identifying triggers and effects of his behaviors. PLAN 1. Admit to M3, CV, 15 minutes checks 2. Continue depakote, check depakote level, adjust dose to therapeutic range, may add seroquel for aggression 3. Obtain collateral information 4. Aftercare planning 07/04: clonidine d/c due to dizziness. 07/05 bloodwork wnl, therapeutic level of VALP. 07/07 scheduled seroquel 100mg po qhs and prn seroquel 50mg po q6hrs. 07/10/ continue current medications I spent ____25__ minutes with the patient and/or on the patient floor today, greater than?50% of which was spent counseling/coordinating care. I spent ___25___ minutes with the patient and/or on the patient floor today, greater than?50% of which was spent counseling/coordinating care. Reason for contiued inpatient stay Substantial Risk for: inability to function
[2021-07-10 18:00] VITALS: BP 132/92; PULSE 82; RESP 16; TEMP 36.6; O2SAT 97
[2021-07-10] MEDS: QUEtiapine Fumarate 100 MG TABLET PO (22:01)
[2021-07-10] MEDS: Divalproex Sodium 500 MG TABLET.DR 1000 MG PO (22:01)
[2021-07-10 23:11] VITALS: BP 156/106; PULSE 80; RESP 18; TEMP 36.6
[2021-07-10 23:26] VITALS: BP 142/97; PULSE 97; RESP 16; TEMP 36.6
[2021-07-10 23:41] VITALS: BP 132/87; PULSE 74; RESP 16; TEMP 36.6
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
[2021-07-11] VITALS: BP 135/90; PULSE 76; RESP 16; TEMP 36.7
[2021-07-11 00:15] VITALS: BP 129/80; PULSE 71; RESP 18; TEMP 36.7
[2021-07-11] MEDS: QUEtiapine Fumarate 200 MG TABLET PO (00:31)
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
[2021-07-11] MEDS: FLUoxetine HCl 20 MG CAPSULE 40 MG PO (13:06)
[2021-07-11] MEDS: Omeprazole 40 MG CAPSULE.DR PO (13:07)
[2021-07-11] MEDS: Divalproex Sodium 500 MG TABLET.DR PO (13:07)
[2021-07-11] MEDS: Loratadine 10 MG TABLET PO (13:08)
[2021-07-11] MEDS: Propranolol HCL 10 MG TABLET PO (13:10)
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
[2021-07-11] MEDS: LORazepam 2 MG/ML VIAL IM (13:36)
[2021-07-11 13:40] VITALS: BP 134/82; PULSE 101; RESP 18; TEMP 36.7; O2SAT 95
[2021-07-11 13:55] VITALS: BP 122/86; PULSE 96; RESP 18; TEMP 36.7; O2SAT 94
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
[2021-07-11 18:00] VITALS: RESP 16
[2021-07-12 08:45] VITALS: BP 127/83; PULSE 93; TEMP 36.7
[2021-07-12] MEDS: Propranolol HCL 10 MG TABLET PO ×2 (08:47→21:21)
[2021-07-12] MEDS: Omeprazole 40 MG CAPSULE.DR PO (08:48)
[2021-07-12] MEDS: Divalproex Sodium 500 MG TABLET.DR PO (08:48)
[2021-07-12] MEDS: Loratadine 10 MG TABLET PO (08:48)
[2021-07-12] MEDS: FLUoxetine HCl 20 MG CAPSULE 40 MG PO (08:48)
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
[2021-07-12 21:20] VITALS: BP 128/82; PULSE 87; RESP 18; TEMP 36.4; O2SAT 99
[2021-07-12] MEDS: QUEtiapine Fumarate 200 MG TABLET PO (21:21)
[2021-07-12] MEDS: Divalproex Sodium 500 MG TABLET.DR 1000 MG PO (21:21)
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
[2021-07-13 09:00] VITALS: BP 130/83; PULSE 82; TEMP 36.5; O2SAT 97
[2021-07-13] MEDS: FLUoxetine HCl 20 MG CAPSULE 40 MG PO (09:56)
[2021-07-13] MEDS: Loratadine 10 MG TABLET PO (09:56)
[2021-07-13] MEDS: Propranolol HCL 10 MG TABLET PO ×2 (09:57→22:11)
[2021-07-13] MEDS: Omeprazole 40 MG CAPSULE.DR PO (09:57)
[2021-07-13] MEDS: Divalproex Sodium 500 MG TABLET.DR PO (09:57)
[2021-07-13 19:20] LABS: Appearance Urine CLEAR; Color Urine DK YELLOW; Glucose Urine UA NEG (NEG); Leukocyte Esterase Urine NEG (NEG); Nitrite Urine NEG (NEG); Specific Gravity - Urine >= 1.030 (1.005-1.025); Urine Blood NEG (NEG); Urine Ketones 40 MG/DL (NEG); Urine Protein 1+ MG/DL (NEG-TRACE)
[2021-07-13 19:31] LABS: Mucus Urine 1+ /LPF; Sperm Urine NOTED
[2021-07-13 19:32] LABS: WBC Urine 0-2 /HPF (0-4)
[2021-07-13 22:10] VITALS: BP 119/72; PULSE 75; RESP 16; TEMP 36.9; O2SAT 98
[2021-07-13] MEDS: QUEtiapine Fumarate 200 MG TABLET PO (22:11)
[2021-07-13] MEDS: Divalproex Sodium 500 MG TABLET.DR 1000 MG PO (22:12)
[2021-07-14 09:00] VITALS: BP 129/71; PULSE 88; RESP 16; TEMP 36.7; O2SAT 97
[2021-07-14] MEDS: FLUoxetine HCl 20 MG CAPSULE 40 MG PO (09:44)
[2021-07-14] MEDS: Omeprazole 40 MG CAPSULE.DR PO (09:44)
[2021-07-14] MEDS: Loratadine 10 MG TABLET PO (09:44)
[2021-07-14] MEDS: Propranolol HCL 10 MG TABLET PO ×2 (09:44→21:26)
[2021-07-14] MEDS: Divalproex Sodium 500 MG TABLET.DR PO (09:44)
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
[2021-07-14] MEDS: QUEtiapine Fumarate 200 MG TABLET PO (21:25)
[2021-07-14] MEDS: Divalproex Sodium 500 MG TABLET.DR 1000 MG PO (21:26)
[2021-07-14 21:27] VITALS: BP 118/78; PULSE 81; RESP 18; TEMP 37; O2SAT 96
[2021-07-15 09:30] VITALS: BP 126/82; PULSE 82; RESP 16; TEMP 36.6; O2SAT 95
[2021-07-15] MEDS: FLUoxetine HCl 20 MG CAPSULE 40 MG PO (10:13)
[2021-07-15] MEDS: Propranolol HCL 10 MG TABLET PO ×2 (10:13→21:29)
[2021-07-15] MEDS: Loratadine 10 MG TABLET PO (10:13)
[2021-07-15] MEDS: Divalproex Sodium 500 MG TABLET.DR PO (10:14)
[2021-07-15] MEDS: Omeprazole 40 MG CAPSULE.DR PO (10:16)
--- NOTE | 2021-07-15 15:51 | HO.PSYCHPN ---
Subjective Subjective Date of Service: 07/15/21 Reason For Visit: aggression Subjective Notes: Conditional Voluntary Interim History: Pt was off 1:1 today. He reports mood is good. He denies hearing voices. He denies SI/HI. He reports sleeping and eating well. No behavioral outburst in past 24 hrs. nor over the weekend. Medication Compliance: Yes Side effects from medications: No Attending Groups: No Review of Systems Review of Systems No recent seizure-like episode or cold or flu-like illness Constitutional: Reports no additional constitutional complaints Eyes: Reports no additional eye complaints Cardiovascular: Denies chest pain, Denies chest pain at rest, Denies diaphoresis, Denies lightheadedness and Denies dyspnea Respiratory: Denies dyspnea Gastrointestinal: Denies diarrhea Mental Status Exam Mental Status Exam Narrative: Appearance: casually groomed, fair hygiene in NAD Behavior:cooperative psychomotor: no agitation or retardation noted Speech: clear, normal rate/rhythm/volume, spontaneous Thought process: linear Thought content:no signs of psychosis, wanting to go to [facility] where friend lives Mood: good Affect: bright, non labile, congruent SI:denies HI:denies VH/AH:denies Delusions:none Insight/judgment:poor x 2. Memory/cog: alert, oriented x 3. underlying intellectual disability. Diagnostics Vital Signs (24Hr): Vital Signs - 24 hr 07/14/21 21:27 07/15/21 09:30 Temperature 98.6 F 97.8 F Pulse Rate 81 82 Respiratory Rate 18 16 Blood Pressure 118/78 126/82 Pulse Oximetry 96 95 BMI result Body Mass Index 28.4 Labs Results: 07/06/21 06:39 07/06/21 06:39 Labs: Laboratory Results - last 48 hr 07/13/21 19:11 Urine Color DK YELLOW Urine Appearance CLEAR Urine pH 6.0 Ur Specific [place] >= 1.030 H Urine Protein 1+ H Urine Glucose (UA) NEG Urine Ketones 40 Urine Blood NEG Urine Nitrite NEG Ur Leukocyte Esterase NEG Urine RBC 1-4 Urine WBC 0-2 Ur Squamous Epith Cells NONE Urine Bacteria NONE Urine Mucus 1+ Urine Sperm NOTED Imaging Radiology Impressions: ITS Impressions Head CT 07/08/21 14:20 IMPRESSION: No acute intracranial process seen related to head injury. 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 Correlate with old CT brain exam, if available. Medications Medications Current Medications Acetaminophen (Acetaminophen 325 Mg Tablet) 650 mg PO Q6H PRN PRN Reason: Headache/Pain Mild Scale (1-3) Last Admin: 07/09/21 12:08 Dose: 650 mg Documented by: Al Hydroxide/Mg Hydroxide (Magnesium Hydrox/Alum Hydrox 30 Ml Oral.Susp) 30 ml PO Q6H PRN PRN Reason: Heartburn/Nausea Last Admin: 07/09/21 23:42 Dose: 30 ml Documented by: Divalproex Sodium (Divalproex Sodium 500 Mg Tablet.) 500 mg PO DAILY [facility] Last Admin: 07/15/21 10:14 Dose: 500 mg Documented by: Divalproex Sodium (Divalproex Sodium 500 Mg Tablet.) 1,000 mg PO BEDTIME [facility] Last Admin: 07/14/21 21:26 Dose: 1,000 mg Documented by: Fluoxetine HCl (Fluoxetine Hcl 20 Mg Capsule) 40 mg PO DAILY [facility] Last Admin: 07/15/21 10:13 Dose: 40 mg Documented by: Hydroxyzine HCl (Hydroxyzine Hcl 25 Mg Tablet) 25 mg PO Q6H PRN PRN Reason: Anxiety Last Admin: 07/06/21 20:53 Dose: 25 mg Documented by: Loratadine (Loratadine 10 Mg Tablet) 10 mg PO DAILY [facility] Last Admin: 07/15/21 10:13 Dose: 10 mg Documented by: Magnesium Hydroxide (Milk Of Magnesia 30 Ml Oral.Susp) 30 ml PO DAILY PRN PRN Reason: Constipation Patient Own Medication ( Linaclotide [Linzess ] 145 Mcg Capsule) 1 each PO DAILY [facility] Last Admin: 07/15/21 10:13 Dose: 1 each Documented by: Omeprazole (Omeprazole 40 Mg Capsule.) 40 mg PO DAILY [facility] Last Admin: 07/15/21 10:16 Dose: 40 mg Documented by: Propranolol HCl (Propranolol Hcl 10 Mg Tablet) 10 mg PO BID [facility]; Protocol Last Admin: 07/15/21 10:13 Dose: 10 mg Documented by: Quetiapine Fumarate (Quetiapine Fumarate 200 Mg Tablet) 200 mg PO BEDTIME [facility] Last Admin: 07/14/21 21:25 Dose: 200 mg Documented by: Quetiapine Fumarate (Quetiapine Fumarate 100 Mg Tablet) 100 mg PO Q6H PRN PRN Reason: agitation Trazodone HCl (Trazodone Hcl 50 Mg Tablet) 50 mg PO BEDTIME PRN PRN Reason: Insomnia Last Admin: 07/09/21 23:42 Dose: 50 mg Documented by: Allergies Allergies Allergy/AdvReac Type Severity Reaction Status Date / Time risperidone [From RISPERDAL] Allergy Unknown MUCLE Verified 12/04/20 19:14 TIGHTNESS Assessment & Plan Assessment & Plan (1) Chronic static encephalopathy: Status: Acute Code(s): G93.49 - Other encephalopathy Assessment and Plan: 30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 Details of his childhood and any neuropsychiatric conditions diagnosed at that time were not known. His examination revealed mild spasticity of legs with hyperreflexia. His head CT has number of findings. The 1st finding to discuss his right inferior frontal encephalomalacia, which probably had happened from trauma. This type of trauma happens more in alcoholics, though that is not the only reason. 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 Underneath, I also see significant frontal and parietal cortical atrophy. The cause for this could be genetic as drug use or alcohol alone may not explain the extent of atrophy. But aggressive alcoholism or prolong exposure to heavy use of alcohol can cause similar changes. More commonly though, these type of changes happen from congenital causes and patients usually have significant psychiatric illnesses such as bipolar disorder. 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 There is no particular or specific treatment for this type of brain pathology. Mainstay of management is symptomatic treatment knowing that the most difficult element of his presentation could be frontal lobe behavioral syndrome, for which no specific treatment existed. Patients like him or also at risk of having seizure disorder though I am not sure if he ever had seizures. At least his caretakers are family should be educated about his conditions. (2) Traumatic brain injury: Status: Acute Code(s): S06.9X9A - Unspecified intracranial injury with loss of consciousness of unspecified duration, initial encounter (3) Intellectual disability: Status: Acute Code(s): F79 - Unspecified intellectual disabilities (4) Intermittent explosive disorder in adult: Status: Acute Code(s): F63.81 - Intermittent explosive disorder Plan Mr. Medina is a 30 year-old male with hx of aggressive behaviors, impulsive at times, hx of intellectual disability. Pt was brought to [facility] ED via EMS after he reported HI towards female staff at . He also reported suicidal ideation. On the unit, pt reports reports of HI/SI was out of frustration. He is limited in that he has difficulty identifying triggers and effects of his behaviors. PLAN 1. Admit to M3, CV, 15 minutes checks 2. Continue depakote, check depakote level, adjust dose to therapeutic range, may add seroquel for aggression 3. Obtain collateral information 4. Aftercare planning 07/04: clonidine d/c due to dizziness. 07/05 bloodwork wnl, therapeutic level of VALP. 07/07 scheduled seroquel 100mg po qhs and prn seroquel 50mg po q6hrs. 07/10/ continue current medications 07/11 increase seroquel to 200mg po qhs and 100mg po daily; start propanolol 10mg po TID for impulsive aggressive behaviors. 07/12: Ct Rx plan. BB added 07/11 for impulsivity 07/13: Ct Rx plan I spent ____25__ minutes with the patient and/or on the patient floor today, greater than?50% of which was spent counseling/coordinating care. I spent minutes with the patient and/or on the patient floor today, greater than?50% of which was spent counseling/coordinating care. Reason for contiued inpatient stay Substantial Risk for: harm to others and inability to function
[2021-07-15 18:00] VITALS: BP 165/89; PULSE 80; RESP 16; TEMP 36.9; O2SAT 97
[2021-07-15] MEDS: Divalproex Sodium 500 MG TABLET.DR 1000 MG PO (21:28)
[2021-07-15] MEDS: QUEtiapine Fumarate 200 MG TABLET PO (21:29)
[2021-07-16 08:45] VITALS: BP 127/88; PULSE 81; RESP 16; TEMP 36.7; O2SAT 98
[2021-07-16] MEDS: FLUoxetine HCl 20 MG CAPSULE 40 MG PO (08:48)
[2021-07-16] MEDS: Omeprazole 40 MG CAPSULE.DR PO (08:48)
[2021-07-16] MEDS: Divalproex Sodium 500 MG TABLET.DR PO (08:48)
[2021-07-16] MEDS: Propranolol HCL 10 MG TABLET PO ×3 (08:48→21:46)
[2021-07-16] MEDS: Loratadine 10 MG TABLET PO (08:48)
--- NOTE | 2021-07-16 10:35 | HO.PSYCHPN ---
Subjective Subjective Date of Service: 07/16/21 Reason For Visit: aggression Subjective Notes: Conditional Voluntary Interim History: Pt has been visible in the unit, social with select peers. He presents with bright affect. He denies SI/HI. No signs of psychosis, looking forward to return to long-term tomorrow. No explosive behaviors. taking medications, no side effects. Medication Compliance: Yes Side effects from medications: No Attending Groups: Yes Review of Systems Acute medical concerns: No Review of Systems Review of Systems No recent seizure-like episode or cold or flu-like illness Constitutional: Reports no additional constitutional complaints Eyes: Reports no additional eye complaints Cardiovascular: Denies chest pain, Denies chest pain at rest, Denies diaphoresis, Denies lightheadedness and Denies dyspnea Respiratory: Denies dyspnea Gastrointestinal: Denies diarrhea Mental Status Exam Mental Status Exam Narrative: Appearance: casually groomed, fair hygiene in NAD Behavior:cooperative psychomotor: no agitation or retardation noted Speech: clear, normal rate/rhythm/volume, spontaneous Thought process: linear Thought content:no signs of psychosis, wanting to go to [facility] where friend lives Mood: good Affect: bright, non labile, congruent SI:denies HI:denies VH/AH:denies Delusions:none Insight/judgment:poor x 2. Memory/cog: alert, oriented x 3. underlying intellectual disability. Mood Description: Suspicious and Withdrawn Affect Description: Calm Patient Cognition Impaired: Yes Ability to Follow Directions: Fair Speech Pattern: Clear Diagnostics Vital Signs (24Hr): Vital Signs - 24 hr 07/16/21 15:40 07/16/21 21:44 07/17/21 08:27 Temperature 98.0 F 98.2 F Pulse Rate 79 78 90 Respiratory Rate 17 Blood Pressure 142/92 H 132/76 146/95 H Pulse Oximetry 97 99 BMI result Body Mass Index 28.3 Labs Results: 07/06/21 06:39 07/06/21 06:39 Imaging Radiology Impressions: ITS Impressions Head CT 07/08/21 14:20 IMPRESSION: No acute intracranial process seen related to head injury. 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 Correlate with old CT brain exam, if available. Medications Medications Current Medications Acetaminophen (Acetaminophen 325 Mg Tablet) 650 mg PO Q6H PRN PRN Reason: Headache/Pain Mild Scale (1-3) Last Admin: 07/09/21 12:08 Dose: 650 mg Documented by: Al Hydroxide/Mg Hydroxide (Magnesium Hydrox/Alum Hydrox 30 Ml Oral.Susp) 30 ml PO Q6H PRN PRN Reason: Heartburn/Nausea Last Admin: 07/09/21 23:42 Dose: 30 ml Documented by: Divalproex Sodium (Divalproex Sodium 500 Mg Tablet.) 500 mg PO DAILY [facility] Last Admin: 07/17/21 08:23 Dose: 500 mg Documented by: Divalproex Sodium (Divalproex Sodium 500 Mg Tablet.) 1,000 mg PO BEDTIME [facility] Last Admin: 07/16/21 21:46 Dose: 1,000 mg Documented by: Fluoxetine HCl (Fluoxetine Hcl 20 Mg Capsule) 40 mg PO DAILY [facility] Last Admin: 07/17/21 08:23 Dose: 40 mg Documented by: Hydroxyzine HCl (Hydroxyzine Hcl 25 Mg Tablet) 25 mg PO Q6H PRN PRN Reason: Anxiety Last Admin: 07/16/21 21:48 Dose: 25 mg Documented by: Loratadine (Loratadine 10 Mg Tablet) 10 mg PO DAILY [facility] Last Admin: 07/17/21 08:23 Dose: 10 mg Documented by: Magnesium Hydroxide (Milk Of Magnesia 30 Ml Oral.Susp) 30 ml PO DAILY PRN PRN Reason: Constipation Patient Own Medication ( Linaclotide [Linzess ] 145 Mcg Capsule) 1 each PO DAILY [facility] Last Admin: 07/17/21 08:23 Dose: 1 each Documented by: Omeprazole (Omeprazole 40 Mg Capsule.) 40 mg PO DAILY [facility] Last Admin: 07/17/21 08:23 Dose: 40 mg Documented by: Propranolol HCl (Propranolol Hcl 10 Mg Tablet) 10 mg PO TID [facility]; Protocol Last Admin: 07/17/21 08:23 Dose: 10 mg Documented by: Quetiapine Fumarate (Quetiapine Fumarate 200 Mg Tablet) 200 mg PO BEDTIME [facility] Last Admin: 07/16/21 21:46 Dose: 200 mg Documented by: Quetiapine Fumarate (Quetiapine Fumarate 100 Mg Tablet) 100 mg PO Q6H PRN PRN Reason: agitation Trazodone HCl (Trazodone Hcl 50 Mg Tablet) 50 mg PO BEDTIME PRN PRN Reason: Insomnia Last Admin: 07/09/21 23:42 Dose: 50 mg Documented by: Allergies Allergies Allergy/AdvReac Type Severity Reaction Status Date / Time risperidone [From RISPERDAL] Allergy Unknown MUCLE Verified 12/04/20 19:14 TIGHTNESS Assessment & Plan Assessment & Plan (1) Intermittent explosive disorder in adult: Status: Acute Code(s): F63.81 - Intermittent explosive disorder (2) Chronic static encephalopathy: Status: Acute Code(s): G93.49 - Other encephalopathy Assessment and Plan: 30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 Details of his childhood and any neuropsychiatric conditions diagnosed at that time were not known. His examination revealed mild spasticity of legs with hyperreflexia. His head CT has number of findings. The 1st finding to discuss his right inferior frontal encephalomalacia, which probably had happened from trauma. This type of trauma happens more in alcoholics, though that is not the only reason. 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 Underneath, I also see significant frontal and parietal cortical atrophy. The cause for this could be genetic as drug use or alcohol alone may not explain the extent of atrophy. But aggressive alcoholism or prolong exposure to heavy use of alcohol can cause similar changes. More commonly though, these type of changes happen from congenital causes and patients usually have significant psychiatric illnesses such as bipolar disorder. 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 There is no particular or specific treatment for this type of brain pathology. Mainstay of management is symptomatic treatment knowing that the most difficult element of his presentation could be frontal lobe behavioral syndrome, for which no specific treatment existed. Patients like him or also at risk of having seizure disorder though I am not sure if he ever had seizures. At least his caretakers are family should be educated about his conditions. (3) Traumatic brain injury: Status: Acute Code(s): S06.9X9A - Unspecified intracranial injury with loss of consciousness of unspecified duration, initial encounter (4) Intellectual disability: Status: Acute Code(s): F79 - Unspecified intellectual disabilities Plan Mr. Medina is a 30 year-old male with hx of aggressive behaviors, impulsive at times, hx of intellectual disability. Pt was brought to [facility] via EMS after he reported HI towards female staff at . He also reported suicidal ideation. On the unit, pt reports reports of HI/SI was out of frustration. He is limited in that he has difficulty identifying triggers and effects of his behaviors. PLAN 1. Admit to M3, CV, 15 minutes checks 2. Continue depakote, check depakote level, adjust dose to therapeutic range, may add seroquel for aggression 3. Obtain collateral information 4. Aftercare planning 07/04: clonidine d/c due to dizziness. 07/05 bloodwork wnl, therapeutic level of VALP. 07/07 scheduled seroquel 100mg po qhs and prn seroquel 50mg po q6hrs. 07/10/ continue current medications 07/11 increase seroquel to 200mg po qhs and 100mg po daily; start propanolol 10mg po TID for impulsive aggressive behaviors. 07/12: Ct Rx plan. BB added 07/11 for impulsivity 07/13: Ct Rx plan I spent ____25__ minutes with the patient and/or on the patient floor today, greater than?50% of which was spent counseling/coordinating care. I spent minutes with the patient and/or on the patient floor today, greater than?50% of which was spent counseling/coordinating care. Reason for contiued inpatient stay Substantial Risk for: stable for discharge
[2021-07-16 15:40] VITALS: BP 142/92; PULSE 79
[2021-07-16 21:44] VITALS: BP 132/76; PULSE 78; TEMP 36.7; O2SAT 97
[2021-07-16] MEDS: QUEtiapine Fumarate 200 MG TABLET PO (21:46)
[2021-07-16] MEDS: Divalproex Sodium 500 MG TABLET.DR 1000 MG PO (21:46)
[2021-07-16] MEDS: hydrOXYzine HCL 25 MG TABLET PO (21:48)
[2021-07-17] MEDS: Omeprazole 40 MG CAPSULE.DR PO (08:23)
[2021-07-17] MEDS: Propranolol HCL 10 MG TABLET PO (08:23)
[2021-07-17] MEDS: Loratadine 10 MG TABLET PO (08:23)
[2021-07-17] MEDS: Divalproex Sodium 500 MG TABLET.DR PO (08:23)
[2021-07-17] MEDS: FLUoxetine HCl 20 MG CAPSULE 40 MG PO (08:23)
[2021-07-17 08:27] VITALS: BP 146/95; PULSE 90; RESP 17; TEMP 36.8; O2SAT 99
[2021-07-17 10:27] VITALS: BMI 28.3
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
[2021-07-17 10:45] LABS: COVID-19 Test Negative (Negative)
--- NOTE | 2021-07-17 11:30 | PC.NURSE ---
PT ready and aware of discharge. Pt with bright affect and reports good mood. PT denies SI/HI, denies anxiety and depression. Discharge instructions discussed, all questions answered. Belongings returned. Pt discharged back to [facility] via ambulance.
== END 2021-07-17 11:30 | disposition home or self-care (01) | DRG 758 ==
LOC: HO.ED 22:51 → HO.PADLT16 07-02 14:38
PROVIDERS: Physician Assistant; Psychiatry & Neurology Psychiatry; Registered Nurse; Admitting Provider Psychiatry & Neurology Psychiatry; Emergency Provider Emergency Medicine; Visit Provider Social Worker
DX: F63.81 Intermittent explosive disorder (principal); G93.49 Other encephalopathy; F79 Unspecified intellectual disabilities; R29.2 Abnormal reflex; Z78.1 Physical restraint status; Z87.820 Personal history of traumatic brain injury; Z20.822 Contact with and (suspected) exposure to COVID-19; Z87.891 Personal history of nicotine dependence; Z79.899 Other long term (current) drug therapy
CPT/HCPCS: 36415; 70450; 80048; 80061; 80076; 80164; 80307; 81001; 81003; 82140; 82607; 82746; 83036; 83540; 84443; 85025; 87635; 93005; 99285; J2060; J3230

== ENCOUNTER 2021-09-16 14:59 | Emergency (ER) | payer MEDICAID, SELFPAY ==
[2021-09-16] VITALS (7 sets, daily range): BP systolic 104–154; BP diastolic 65–86; PULSE 85–122; RESP 12–16; O2SAT 97–98; BMI 30.2
--- NOTE | ~2021-09-16 | XR_ITS ---
EXAMINATION: XR HAND, LEFT CLINICAL INFORMATION: Left hand pain. COMPARISON: None TECHNIQUE: PA, lateral, and oblique views of the left hand. An indicator arrow points to the fifth digit. FINDINGS: A subtle transverse linear lucency is seen at the level the distal metadiaphysis of the fifth metacarpal. A curvilinear lucency is also seen at the ulnar base of the proximal phalanx of the fifth digit. The remainder the digits are intact. The carpal bones are normally aligned. The distal radius and ulna are intact. The soft tissues are unremarkable. XR/XR hand LT 2V IMPRESSION: Possible acute, nondisplaced fractures of the distal aspect of the fifth metacarpal and ulnar base of the proximal phalanx of the fifth digit.
--- NOTE | ~2021-09-16 | XR_ITS ---
EXAMINATION: X-RAY LEFT WRIST X-RAY RIGHT WRIST CLINICAL INFORMATION: Pain, status post restraint COMPARISON: None TECHNIQUE: 4 views of the left wrist 4 views of the right wrist XR/XR wrist LT min 3V FINDINGS/IMPRESSION: Left wrist. Small, minimally displaced, intra-articular fracture of the ulnar base of the fifth proximal phalanx. Remainder of the osseous structures appear intact. Mild soft tissue swelling. Right wrist. Osseous structures appear intact. No fractures or dislocations. Soft tissues are unremarkable.
--- NOTE | ~2021-09-16 | XR_ITS ---
EXAMINATION: X-RAY LEFT WRIST X-RAY RIGHT WRIST CLINICAL INFORMATION: Pain, status post restraint COMPARISON: None TECHNIQUE: 4 views of the left wrist 4 views of the right wrist XR/XR wrist RT min 3V FINDINGS/IMPRESSION: Left wrist. Small, minimally displaced, intra-articular fracture of the ulnar base of the fifth proximal phalanx. Remainder of the osseous structures appear intact. Mild soft tissue swelling. Right wrist. Osseous structures appear intact. No fractures or dislocations. Soft tissues are unremarkable.
--- NOTE | 2021-09-16 15:11 | MHC.CARE ---
Pt seen by [facility] in the community. Plan is for [facility] follow up.
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
[2021-09-16] MEDS: LORazepam 2 MG/ML VIAL IM (15:24)
[2021-09-16 16:57] LABS: Ethanol < 10 mg/dL
[2021-09-16 16:58] LABS: Amphetamine Screen Urine Not Detected (Not Detect); Barbiturates, Urine Not Detected (Not Detect); Benzodiazepines Screen Urine Not Detected (Not Detect); Cannabinoid Screen Urine Not Detected (Not Detect); Cocaine Screen Urine Not Detected (Not Detect); Fentanyl, urine Not Detected (Not Detect); Opiate Screen Urine Not Detected (Not Detect); Phencyclidine Screen Urine Not Detected (Not Detect)
[2021-09-16 16:59] LABS: COVID-19 Test Negative (Negative)
[2021-09-16 17:00] LABS: Alanine Aminotransferase 14 U/L (0-40); Albumin Level 4.2 g/dL (3.5-5.0); Alkaline Phosphatase 101 U/L (39-117); Anion Gap 13 (12-20); Aspartate Amino Transferase 19 U/L (5-37); Bilirubin Direct 0.2 mg/dL (0.0-0.5); Bilirubin Total 0.6 mg/dL (0.0-1.0); Blood Urea Nitrogen 13 mg/dL (9-16); Calcium 9.2 mg/dL (8.4-10.2); Carbon Dioxide 28 mmol/L (22-29); Chloride 102 mmol/L (96-108); Creatinine Clr Calc Pharmacy 96.8; Estimated Glomerular Filt Rate > 60; Glucose Random 85 mg/dL (60-115); Magnesium 2.6 mg/dL (1.6-2.6); Potassium 4.9 mmol/L (3.3-5.1); Sodium 138 mmol/L (135-145); Total Protein 8.3 g/dL (6.5-8.0)
[2021-09-16 17:04] LABS: Valproate 56.7 mcg/mL (50.0-100.0)
[2021-09-16] MEDS: QUEtiapine Fumarate 100 MG TABLET PO (18:45)
[2021-09-16] MEDS: OLANZapine 10 MG VIAL IM (19:08)
--- NOTE | 2021-09-16 19:37 | PC.NURSE ---
pt was watching tv and returned the remote and walked with a steady gait back to his room.
--- NOTE | 2021-09-17 06:45 | PC.NURSE ---
pt slept thur the night after being medicated vitals stable. no more aggressive behavior, and back to sleep.
[2021-09-17 06:46] VITALS: BP 114/86; PULSE 53; RESP 17; TEMP 36.5; O2SAT 97
[2021-09-17] MEDS: Divalproex Sodium 500 MG TABLET.DR PO (17:23)
[2021-09-17] MEDS: Loratadine 10 MG TABLET PO (17:23)
[2021-09-17] MEDS: FLUoxetine HCl 20 MG CAPSULE 40 MG PO (17:23)
[2021-09-17] MEDS: Propranolol HCL 10 MG TABLET PO ×2 (17:23→21:14)
[2021-09-17 20:14] VITALS: BP 138/93; PULSE 101; RESP 16; O2SAT 98
[2021-09-17 20:43] VITALS: BP 114/91; PULSE 88; RESP 18; O2SAT 98
[2021-09-17] MEDS: Chlorhexidine Gluc Oral Rinse 15 ML MOUTHWASH BUCCAL (20:44)
[2021-09-17] MEDS: QUEtiapine Fumarate 200 MG TABLET PO (20:45)
[2021-09-17 21:12] VITALS: BP 114/91; PULSE 103; RESP 18; O2SAT 98
[2021-09-17] MEDS: Divalproex Sodium 500 MG TABLET.DR 1000 MG PO (21:13)
[2021-09-18 06:19] VITALS: RESP 16
--- NOTE | 2021-09-18 07:39 | PC.NURSE ---
Report recieved from Misael MARSH. Pt has been sleeping since this RN arrival.
[2021-09-18] MEDS: Omeprazole 20 MG CAPSULE.DR PO (08:55)
[2021-09-18] MEDS: FLUoxetine HCl 20 MG CAPSULE 40 MG PO (08:55)
[2021-09-18] MEDS: Loratadine 10 MG TABLET PO (08:55)
[2021-09-18] MEDS: Propranolol HCL 10 MG TABLET PO ×3 (08:55→21:06)
[2021-09-18] MEDS: Chlorhexidine Gluc Oral Rinse 15 ML MOUTHWASH BUCCAL ×2 (08:55→21:06)
[2021-09-18] MEDS: Divalproex Sodium 500 MG TABLET.DR PO (08:56)
[2021-09-18 09:16] LABS: MANUAL DIFF FLAG NO
[2021-09-18 09:21] LABS: Basophils Percent Auto 0.5 % (0-2); Eosinophils Absolute Auto 0.2 X10*3/uL (0.0-0.4); Eosinophils Percent Auto 2.7 % (0-4); Hematocrit 45.2 % (42.0-52.0); Hemoglobin 14.8 g/dl (14.0-18.0); Imm Gran Pct Auto 1.3 % (0.0-0.4); Lymphocytes Absolute Auto 2.3 X10*3/uL (1.2-4.9); Lymphocytes Percent Auto 29.6 % (20-40); Mean Corpuscular HGB Conc 32.7 g/dl (31.0-36.0); Mean Corpuscular Hemoglobin 32.1 pg (27.0-33.0); Monocytes Absolute Auto 0.7 X10*3/uL (0.1-1.2); Monocytes Percent Auto 9.2 % (2-11); Neutrophils Absolute Auto 4.5 x10*3/uL (2.0-8.3); Neutrophils Percent Auto 56.7 % (45-73); Platelet Count 156 X10*3/uL (160-400); Red Blood Count 4.61 X10*6/uL (4.60-5.80); Red Cell Distribution Width 12.6 % (11.0-16.0); White Blood Count 7.9 X10*3/uL (4.8-10.8)
[2021-09-18 10:54] VITALS: BP 117/73; PULSE 78; TEMP 37.2; O2SAT 99
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
--- NOTE | 2021-09-18 12:58 | PC.NURSE ---
Nimesh called. inpatient bed search remains in place. Hope is for a [facility] visit today if staffing at [facility] allows. Pt aware. Has been busy coloring in his room and is hovering at nurses station less.
--- NOTE | 2021-09-18 15:58 | PC.NURSE ---
rn to rn with mariana on M5.
--- NOTE | 2021-09-18 17:18 | PC.NURSE ---
Alison Mora, carpenter supervisor wooden ship at residential, asking for update. [phone]
[2021-09-18] MEDS: LORazepam 1 MG TABLET PO (18:01)
--- NOTE | 2021-09-18 18:01 | PC.NURSE ---
Pt has become impatient with waiting for room. has seem many other's get impatioent beds. Banged his head on wall lightly 3-4 times. was redirecable and easily engaged in other conversation but requested a PRN. Given ativan at his request.
--- NOTE | 2021-09-18 18:44 | PC.NURSE ---
calm./ has spent time with security and staff talking calmly. NAD.
[2021-09-18] MEDS: QUEtiapine Fumarate 200 MG TABLET PO (20:59)
[2021-09-18] MEDS: Divalproex Sodium 500 MG TABLET.DR 1000 MG PO (21:00)
[2021-09-18 21:10] VITALS: BP 112/78; PULSE 85; RESP 18; O2SAT 97
--- NOTE | 2021-09-19 05:17 | PC.NURSE ---
PT in bed resting with eyes closed this shift, PT is being monitored by staff.
[2021-09-19 06:36] VITALS: RESP 16
--- NOTE | 2021-09-19 07:29 | PC.NURSE ---
patient appears to remain asleep at present respirations are even and unlabored patient appears in no distress
[2021-09-19] MEDS: Chlorhexidine Gluc Oral Rinse 15 ML MOUTHWASH BUCCAL ×2 (10:32→20:16)
[2021-09-19] MEDS: Divalproex Sodium 500 MG TABLET.DR PO (10:32)
[2021-09-19] MEDS: Loratadine 10 MG TABLET PO (10:32)
[2021-09-19] MEDS: FLUoxetine HCl 20 MG CAPSULE 40 MG PO (10:33)
[2021-09-19] MEDS: Propranolol HCL 10 MG TABLET PO ×2 (10:33→20:16)
[2021-09-19] MEDS: LORazepam 1 MG TABLET 2 MG PO (12:29)
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
[2021-09-19] MEDS: LORazepam 1 MG TABLET PO (16:49)
[2021-09-19 18:03] VITALS: BP 115/80; PULSE 90; RESP 20; TEMP 37.2; O2SAT 95
[2021-09-19 20:11] VITALS: BP 114/70; PULSE 75; RESP 16; O2SAT 98
[2021-09-19] MEDS: Divalproex Sodium 500 MG TABLET.DR 1000 MG PO (20:16)
[2021-09-19] MEDS: QUEtiapine Fumarate 200 MG TABLET PO (20:16)
[2021-09-20] MEDS: LORazepam 1 MG TABLET PO (12:39)
[2021-09-20] MEDS: Propranolol HCL 10 MG TABLET PO (15:07)
[2021-09-20 15:15] VITALS: BP 121/88; PULSE 97; RESP 18; TEMP 36.8; O2SAT 100
--- NOTE | 2021-09-20 19:05 | PC.NURSE ---
Took report from Lin to assume care of PT.
[2021-09-20] MEDS: Haloperidol Lactate 5 MG/ML VIAL IM (19:30)
[2021-09-20] MEDS: LORazepam 2 MG/ML VIAL IM (19:30)
[2021-09-20] MEDS: diphenhydrAMINE HCL 50 MG/ML VIAL IM (19:30)
[2021-09-20 20:11] VITALS: BP 116/77; PULSE 71; RESP 18; O2SAT 95
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
[2021-09-21 01:41] VITALS: BP 123/80; PULSE 80; RESP 17; TEMP 36.7; O2SAT 98
--- NOTE | 2021-09-21 05:02 | PC.NURSE ---
Pt awake, walked to restroom, stopped at RN station on way back to room and apologized, Pt asked for clean scrub bottoms and was given by Tech, Pt went back to room without incident.
--- NOTE | 2021-09-21 06:40 | PC.NURSE ---
Pt sleeping, chest rise and fall observed, safety maintained, this RN continues to monitor.
[2021-09-21] MEDS: Divalproex Sodium 500 MG TABLET.DR PO (09:23)
[2021-09-21] MEDS: Omeprazole 20 MG CAPSULE.DR PO (09:23)
[2021-09-21] MEDS: Loratadine 10 MG TABLET PO (09:23)
[2021-09-21] MEDS: FLUoxetine HCl 20 MG CAPSULE 40 MG PO (09:23)
[2021-09-21] MEDS: LORazepam 1 MG TABLET PO ×2 (09:23→15:41)
[2021-09-21] MEDS: Chlorhexidine Gluc Oral Rinse 15 ML MOUTHWASH BUCCAL ×2 (10:02→21:17)
[2021-09-21] MEDS: Propranolol HCL 10 MG TABLET PO ×3 (10:02→21:17)
[2021-09-21 10:12] VITALS: BP 124/94; PULSE 99; RESP 18; TEMP 37.2; O2SAT 97
--- NOTE | 2021-09-21 14:08 | PC.NURSE ---
Addendum entered by Sonia Starkey RN 09/21/21 15:43: pt took a nap to help his anxiety. when he woke up t/w offered him Ativan again and he reported that his nap helped him. shortly after at 1540, pt dropped the puzzle he was working on onto the floor, became agitated. he slammed his fists on to the table, and called out for t/w to get him medication. I spoke with Caroline CHRISTOPHER and received the OK to give the PRN 1mg PO medication that had been previously ordered, at this time. Original Note: pt requesting Ativan for anxiety and agitation, Caroline CHRISTOPHER made aware and order for 1mg PO PRN ordered. t/w offered med to pt and he refused at this time.
[2021-09-21 14:52] VITALS: BP 122/86; PULSE 84
[2021-09-21] MEDS: QUEtiapine Fumarate 200 MG TABLET PO (21:17)
[2021-09-21] MEDS: Divalproex Sodium 500 MG TABLET.DR 1000 MG PO (21:18)
[2021-09-22 06:33] VITALS: BP 115/79; PULSE 78; RESP 16; TEMP 36.6; O2SAT 99
[2021-09-22] MEDS: Omeprazole 20 MG CAPSULE.DR PO (06:37)
--- NOTE | 2021-09-22 07:41 | PC.NURSE ---
patient appears to remain asleep at present respirations are even and unlabored patient appears in no distress
[2021-09-22] MEDS: Divalproex Sodium 500 MG TABLET.DR PO (11:20)
[2021-09-22] MEDS: Chlorhexidine Gluc Oral Rinse 15 ML MOUTHWASH BUCCAL (11:20)
[2021-09-22] MEDS: Propranolol HCL 10 MG TABLET PO ×3 (11:20→20:42)
[2021-09-22] MEDS: FLUoxetine HCl 20 MG CAPSULE 40 MG PO (11:20)
[2021-09-22] MEDS: Loratadine 10 MG TABLET PO (11:20)
[2021-09-22] MEDS: LORazepam 1 MG TABLET PO ×2 (11:21→20:42)
[2021-09-22 17:48] VITALS: BP 128/78; PULSE 65; RESP 16; TEMP 36.6; O2SAT 96
[2021-09-22] MEDS: QUEtiapine Fumarate 200 MG TABLET PO (20:42)
[2021-09-22] MEDS: Divalproex Sodium 500 MG TABLET.DR 1000 MG PO (20:42)
[2021-09-23 06:15] VITALS: RESP 16
[2021-09-23] MEDS: FLUoxetine HCl 20 MG CAPSULE 40 MG PO (07:15)
[2021-09-23] MEDS: Omeprazole 20 MG CAPSULE.DR PO (07:15)
[2021-09-23] MEDS: Loratadine 10 MG TABLET PO (07:16)
[2021-09-23] MEDS: Divalproex Sodium 500 MG TABLET.DR PO (07:16)
[2021-09-23] MEDS: LORazepam 1 MG TABLET PO ×2 (07:16→18:48)
--- NOTE | 2021-09-23 07:35 | PC.NURSE ---
patient appears to remain at rest at present respirations are even and unlabored patient appears in no distress, awoke briefly this am to mention he wanting a placement to happen for him.
[2021-09-23] MEDS: Propranolol HCL 10 MG TABLET PO ×3 (11:34→20:41)
[2021-09-23] MEDS: OLANZapine 5 MG TABLET PO (18:48)
--- NOTE | 2021-09-23 18:48 | PC.NURSE ---
patient escalated after unpleasant phone call with father first tested boundaries playfully by entering nurses station then became more belligerent, declining many redirects and declining offered prn medications. patient gestured by tossing trash can which required escort by staff to modify behavior. security called, patient guided to room who sat on bed, slammed door soon thereafter. IM med was consiodered but patiernt stated he would take meduications by mouth. patient seems to be attempting to keep in bahevioural control
--- NOTE | 2021-09-23 19:35 | PC.NURSE ---
Patient pacing back and forth and trying to come into nurse's station. Security call and at bedside. Patient given juice, standing in perkins. Will monitor closely.
[2021-09-23 20:35] VITALS: BP 112/83; PULSE 74; RESP 16; TEMP 37; O2SAT 97
[2021-09-23] MEDS: Divalproex Sodium 500 MG TABLET.DR 1000 MG PO (20:41)
[2021-09-23] MEDS: QUEtiapine Fumarate 200 MG TABLET PO (20:41)
[2021-09-23] MEDS: Chlorhexidine Gluc Oral Rinse 15 ML MOUTHWASH BUCCAL (20:41)
--- NOTE | 2021-09-23 23:14 | PC.NURSE ---
Patient asleep, awakens easily. No distress noted. Will monitor closely.
[2021-09-24] VITALS (8 sets, daily range): BP systolic 106–129; BP diastolic 61–85; PULSE 61–80; RESP 16–20; TEMP 36.4; O2SAT 96–97
[2021-09-24] MEDS: Omeprazole 20 MG CAPSULE.DR PO (06:22)
--- NOTE | 2021-09-24 07:19 | PC.NURSE ---
patient appears to remain asleep at present respirations are even and unlabored patient appears in no distress.
[2021-09-24] MEDS: Propranolol HCL 10 MG TABLET PO ×3 (09:03→20:12)
[2021-09-24] MEDS: LORazepam 1 MG TABLET PO (09:03)
[2021-09-24] MEDS: Divalproex Sodium 500 MG TABLET.DR PO (09:03)
[2021-09-24] MEDS: Loratadine 10 MG TABLET PO (09:04)
[2021-09-24] MEDS: FLUoxetine HCl 20 MG CAPSULE 40 MG PO (09:04)
[2021-09-24] MEDS: LORazepam 1 MG TABLET 2 MG PO (19:25)
[2021-09-24] MEDS: HaloperidoL 5 MG TABLET PO (19:36)
[2021-09-24] MEDS: diphenhydrAMINE HCL 25 MG TABLET 50 MG PO (19:37)
[2021-09-24] MEDS: QUEtiapine Fumarate 200 MG TABLET PO (20:12)
[2021-09-24] MEDS: traZODone HCL 50 MG TABLET PO (20:12)
[2021-09-24] MEDS: Divalproex Sodium 500 MG TABLET.DR 1000 MG PO (20:12)
[2021-09-24] MEDS: OLANZapine 10 MG VIAL IM (21:10)
--- NOTE | 2021-09-24 21:23 | PC.NURSE ---
Patient loud disruptive, making assaultive gesture towards security, non [id number] through out the shift, attempted to exit 3 times, disrobed in his room, showing male part towards people outside his room, made masturbating gesture, Haldol 5m mg + Ativan 1 mg + benadryl 50 mg tablets administered per ordr at 193 with no effect, HS medication at 2011 with no effect, patient continued above behavior, provider ordered Olanzapine 10 mg IM for comfort/administered at ordered at 2109, patient currently in his room resting quietly, observed on 1:1 for safety, will continue to monitor.
[2021-09-25 04:00] VITALS: RESP 16
--- NOTE | 2021-09-25 06:29 | PC.NURSE ---
Patient was S/P chemicals restraint, positive effect, slept through the night, no distress observed/reported, behavior inappropriate at time, yelling/screaming/disrobing/exit seeking, psych consult completed/PRN Olanzapine 5 mg PO every 6 hours ordered, VSS, medication compliant, disposition per [facility] is section 12 inpatient bed search, no update on bed search after 8 days in the hospital, will continue to monitor.
[2021-09-25 07:37] VITALS: BP 109/79; PULSE 82; RESP 18; TEMP 36.7; O2SAT 98
[2021-09-25] MEDS: Omeprazole 20 MG CAPSULE.DR PO (07:38)
[2021-09-25] MEDS: OLANZapine 5 MG TABLET PO ×3 (08:33→20:02)
[2021-09-25] MEDS: Loratadine 10 MG TABLET PO (08:33)
[2021-09-25] MEDS: Chlorhexidine Gluc Oral Rinse 15 ML MOUTHWASH BUCCAL ×2 (08:33→19:49)
[2021-09-25] MEDS: Divalproex Sodium 500 MG TABLET.DR PO (08:33)
[2021-09-25] MEDS: FLUoxetine HCl 20 MG CAPSULE 40 MG PO (08:33)
[2021-09-25] MEDS: Propranolol HCL 10 MG TABLET PO ×2 (08:34→20:02)
--- NOTE | 2021-09-25 09:10 | PC.NURSE ---
pt's father woody ([phone]) called [facility] and was updated.
--- NOTE | 2021-09-25 11:40 | PC.NURSE ---
adrianna (director of [facility]) at bedside, pt aware of plan care.
[2021-09-25 11:58] VITALS: BP 129/84; PULSE 90; TEMP 36.6; O2SAT 98
--- NOTE | 2021-09-25 14:27 | PC.NURSE ---
pt seen by dr. abbey sands (psych,) about consult/eval for med reconcilliation. pt's mother call earlier and spoke with pt.
--- NOTE | 2021-09-25 14:44 | PC.NURSE ---
pt c/o anxiety/agitation med x 1 with zyprexa 5mg po.
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
[2021-09-25 16:07] VITALS: BP 91/73; PULSE 78
[2021-09-25] MEDS: QUEtiapine Fumarate 200 MG TABLET PO (20:02)
[2021-09-25] MEDS: traZODone HCL 50 MG TABLET PO (20:02)
[2021-09-25] MEDS: Divalproex Sodium 500 MG TABLET.DR 1000 MG PO (20:02)
[2021-09-25 20:05] VITALS: BP 112/61; PULSE 71; RESP 16; O2SAT 96
[2021-09-26 06:32] VITALS: RESP 17
--- NOTE | 2021-09-26 06:48 | PC.NURSE ---
Patient slept through the night, no distress observed/reported, patient behavior has improved tremendously, patient is more pleasant, medication compliant, disposition per [facility] is section 12 inpatient bed search, no update on bed search, will continue to monitor.
[2021-09-26] MEDS: FLUoxetine HCl 20 MG CAPSULE 40 MG PO (09:25)
[2021-09-26] MEDS: Omeprazole 20 MG CAPSULE.DR PO (09:25)
[2021-09-26] MEDS: Chlorhexidine Gluc Oral Rinse 15 ML MOUTHWASH BUCCAL ×2 (09:25→20:24)
[2021-09-26] MEDS: Divalproex Sodium 500 MG TABLET.DR PO (09:26)
[2021-09-26] MEDS: Propranolol HCL 10 MG TABLET PO ×3 (09:26→20:24)
[2021-09-26] MEDS: Loratadine 10 MG TABLET PO (09:26)
[2021-09-26] MEDS: OLANZapine 5 MG TABLET PO ×3 (09:28→20:24)
[2021-09-26 09:31] VITALS: BP 134/49; PULSE 85; RESP 16; O2SAT 96
[2021-09-26 15:58] VITALS: BP 125/67; PULSE 74; RESP 19; TEMP 36.4; O2SAT 96
[2021-09-26 20:24] VITALS: BP 117/76; PULSE 69
[2021-09-26] MEDS: traZODone HCL 50 MG TABLET PO (20:24)
[2021-09-26] MEDS: Divalproex Sodium 500 MG TABLET.DR 1000 MG PO (20:24)
[2021-09-26] MEDS: QUEtiapine Fumarate 200 MG TABLET PO (20:24)
[2021-09-27 04:54] VITALS: BP 113/70; PULSE 68; RESP 20; TEMP 36.6; O2SAT 96
--- NOTE | 2021-09-27 05:48 | PC.NURSE ---
Patient slept through the night, no distress observed/reported, medication compliant, VSS, behavior calm and non concerning, disposition per [facility] is section 12 inpatient bed search, no update on bed search, will continue to monitor.
[2021-09-27] MEDS: Omeprazole 20 MG CAPSULE.DR PO (06:13)
[2021-09-27] MEDS: OLANZapine 5 MG TABLET PO ×3 (06:13→19:52)
--- NOTE | 2021-09-27 07:04 | PC.NURSE ---
patient appears to remain asleep at present respirations are even and unlabored patient appears in no distress
[2021-09-27] MEDS: Propranolol HCL 10 MG TABLET PO ×3 (08:07→19:51)
[2021-09-27] MEDS: FLUoxetine HCl 20 MG CAPSULE 40 MG PO (08:07)
[2021-09-27] MEDS: Loratadine 10 MG TABLET PO (08:07)
[2021-09-27] MEDS: Chlorhexidine Gluc Oral Rinse 15 ML MOUTHWASH BUCCAL ×2 (08:07→19:51)
[2021-09-27] MEDS: Divalproex Sodium 500 MG TABLET.DR PO (08:07)
[2021-09-27 11:03] VITALS: BP 107/64; PULSE 74; TEMP 36.4; O2SAT 97
--- NOTE | 2021-09-27 12:33 | MHC.CARE ---
Delonte was seen for MSU by Nimesh and remains inpatient level of care, Nimesh continues to do bed search.
--- NOTE | 2021-09-27 15:32 | PC.NURSE ---
patient expressed a few times today patient has seemingly sexually charged dreams about males, expresses the content is distressful to him (although on previous days to other staff client has expressed attraction to males...) will approach providers to see if they feel comfortable trialling prazosin on a short term basis (spoke to client on how this may be contraidicated with presence of continued propanolol
[2021-09-27 19:51] VITALS: BP 122/77; PULSE 73; RESP 20; TEMP 36.6; O2SAT 96
[2021-09-27] MEDS: traZODone HCL 50 MG TABLET PO (19:51)
[2021-09-27] MEDS: Divalproex Sodium 500 MG TABLET.DR 1000 MG PO (19:51)
[2021-09-27] MEDS: QUEtiapine Fumarate 200 MG TABLET PO (19:52)
[2021-09-27] MEDS: LORazepam 1 MG TABLET 2 MG PO (19:56)
[2021-09-27] MEDS: Prazosin HCL 1 MG CAPSULE PO (20:13)
[2021-09-28 03:00] VITALS: BP 107/77; PULSE 74; RESP 17; O2SAT 98
[2021-09-28] MEDS: OLANZapine 5 MG TABLET PO ×2 (06:11→20:04)
[2021-09-28] MEDS: Omeprazole 20 MG CAPSULE.DR PO (06:12)
--- NOTE | 2021-09-28 06:23 | PC.NURSE ---
Patient slept through the night, no distress observed/reported, medication compliant, VSS, behavior calm and non concerning at this time, disposition per [facility] is section 12 inpatient bed search, no update on bed search, will continue to monitor.
[2021-09-28] MEDS: FLUoxetine HCl 20 MG CAPSULE 40 MG PO (08:27)
[2021-09-28] MEDS: Propranolol HCL 10 MG TABLET PO ×3 (08:27→20:04)
[2021-09-28] MEDS: Divalproex Sodium 500 MG TABLET.DR PO (08:27)
[2021-09-28] MEDS: Loratadine 10 MG TABLET PO (08:27)
[2021-09-28] MEDS: LORazepam 1 MG TABLET 2 MG PO (20:03)
[2021-09-28] MEDS: Divalproex Sodium 500 MG TABLET.DR 1000 MG PO (20:04)
[2021-09-28] MEDS: Prazosin HCL 1 MG CAPSULE PO (20:04)
[2021-09-28] MEDS: traZODone HCL 50 MG TABLET PO (20:04)
[2021-09-28] MEDS: QUEtiapine Fumarate 200 MG TABLET PO (20:04)
[2021-09-28 20:20] VITALS: RESP 20
[2021-09-28] MEDS: LORazepam 2 MG/ML VIAL IM (20:20)
[2021-09-28] MEDS: diphenhydrAMINE HCL 50 MG/ML VIAL IM (20:20)
[2021-09-28] MEDS: Haloperidol Lactate 5 MG/ML VIAL IM (20:20)
[2021-09-28 20:35] VITALS: RESP 20
[2021-09-28 20:50] VITALS: BP 121/82; PULSE 77; RESP 18; TEMP 36.8; O2SAT 97
[2021-09-28 21:05] VITALS: RESP 18
[2021-09-28 21:20] VITALS: RESP 18
[2021-09-29] VITALS (7 sets, daily range): BP systolic 115–132; BP diastolic 76–95; PULSE 85–107; RESP 18–22; TEMP 36.6; O2SAT 94–97
--- NOTE | 2021-09-29 06:34 | PC.NURSE ---
Patient slept through the night, had some difficulty falling sleep, behavior baseline unpredictable, chemically restraint at 2020 with positive effect, disposition per [facility] is section 12 inpatient bed search, no update on bed search, VSS, medication compliant, will continue to monitor.
--- NOTE | 2021-09-29 07:02 | PC.NURSE ---
patient appears to remain asleep at present respirations are even and unlabored patient appears in no distress
[2021-09-29] MEDS: Omeprazole 20 MG CAPSULE.DR PO (12:21)
[2021-09-29] MEDS: Propranolol HCL 10 MG TABLET PO ×2 (15:45→20:19)
[2021-09-29] MEDS: LORazepam 1 MG TABLET 2 MG PO (15:46)
--- NOTE | 2021-09-29 17:55 | PC.NURSE ---
Patient alert and cooperative 1 x incontinent was showered new linens were placed on bed aware of plan to await [facility] re-eval. BHN called stated the eta for clinician would be closer to production supervisor off shift. Patient made aware. Sitting in common area watching tv and doing a puzzle with staff.
[2021-09-29] MEDS: OLANZapine 5 MG TABLET PO (18:49)
[2021-09-29] MEDS: QUEtiapine Fumarate 200 MG TABLET PO (20:19)
[2021-09-29] MEDS: Divalproex Sodium 500 MG TABLET.DR 1000 MG PO (20:19)
[2021-09-29] MEDS: traZODone HCL 50 MG TABLET PO (20:19)
[2021-09-29] MEDS: Prazosin HCL 1 MG CAPSULE PO (20:19)
[2021-09-29] MEDS: Chlorhexidine Gluc Oral Rinse 15 ML MOUTHWASH BUCCAL (20:21)
[2021-09-29] MEDS: OLANZapine 10 MG VIAL 5 MG IM (21:10)
--- NOTE | 2021-09-29 22:50 | PC.NURSE ---
Patient was extremely agitated, disrobed, swung at security, difficult redirect, Olanzapine 5 mg IM administered at 2109 with positive effect, will continue to monitor.
[2021-09-30 06:00] VITALS: RESP 16
--- NOTE | 2021-09-30 06:57 | PC.NURSE ---
Patient slept through the night, behavior baseline unpredictable, disposition per [facility] is section 12 inpatient bed search, no update on bed search, patient is on wait list at [facility], VSS, medication compliant, will continue to monitor.
--- NOTE | 2021-09-30 07:23 | PC.NURSE ---
patient appears to remain asleep at present respirations are even and unlabored patient appears in no distress
[2021-09-30] MEDS: Divalproex Sodium 500 MG TABLET.DR PO (11:57)
[2021-09-30] MEDS: FLUoxetine HCl 20 MG CAPSULE 40 MG PO (11:57)
[2021-09-30] MEDS: Loratadine 10 MG TABLET PO (11:58)
[2021-09-30] MEDS: Propranolol HCL 10 MG TABLET PO ×3 (11:58→19:51)
[2021-09-30] MEDS: OLANZapine 5 MG TABLET PO ×3 (11:58→21:25)
[2021-09-30] MEDS: LORazepam 1 MG TABLET 2 MG PO (15:21)
--- NOTE | 2021-09-30 17:16 | MHC.CARE ---
CARE Team is informed by [facility] crisis that they are recommending discharge to half-way to continue bedsearch there. CARE Team speaks with S psychologist, Florinda Funez, who has some concerns about this, but the decision about returning to [facility] is up to [facility]. Rona Allen, clinician from [facility] [phone] is the person in charge of making decisions about coordinating return to . Rona reports that she will need to coordinate internally and call CARE Team back to establish a timeline for d/c.
[2021-09-30] MEDS: Divalproex Sodium 500 MG TABLET.DR 1000 MG PO (19:50)
[2021-09-30] MEDS: Prazosin HCL 1 MG CAPSULE PO (19:50)
[2021-09-30] MEDS: Chlorhexidine Gluc Oral Rinse 15 ML MOUTHWASH BUCCAL (19:51)
[2021-09-30] MEDS: QUEtiapine Fumarate 200 MG TABLET PO (19:51)
[2021-09-30] MEDS: traZODone HCL 50 MG TABLET PO (19:51)
[2021-09-30 19:53] VITALS: BP 126/82; PULSE 87; RESP 18; O2SAT 98
[2021-10-01 02:14] VITALS: BP 106/65; PULSE 79; RESP 17; O2SAT 94
--- NOTE | 2021-10-01 06:24 | PC.NURSE ---
Patient slept through the night, behavior in good control, disposition per N is section 12 inpatient bed search, no update on bed search, patient is on wait list at [facility]. Care team, N, and fdc are communicating for possible discharge to fdc and continue bed search from fdc, VSS, medication compliant, will continue to monitor.
--- NOTE | 2021-10-01 07:06 | PC.NURSE ---
patient appears to remain asleep at present respirations are even and unlabored patient appears in no distress
[2021-10-01] MEDS: Propranolol HCL 10 MG TABLET PO ×3 (10:54→20:05)
[2021-10-01] MEDS: FLUoxetine HCl 20 MG CAPSULE 40 MG PO (10:54)
[2021-10-01] MEDS: Omeprazole 20 MG CAPSULE.DR PO (10:54)
[2021-10-01] MEDS: OLANZapine 5 MG TABLET PO (10:55)
[2021-10-01] MEDS: Loratadine 10 MG TABLET PO (10:55)
[2021-10-01] MEDS: Divalproex Sodium 500 MG TABLET.DR PO ×2 (10:56→20:08)
--- NOTE | 2021-10-01 13:02 | MHC.CARE ---
CARE Team is informed by N crisis that halfway is not comfortable with pt returning at this time. CARE Team calls N to discuss if their recommendation for discharge has changed from last night. [facility] supervisor shipping reports that they do not know the case and will have a clinical coordinator call them back.
[2021-10-01] MEDS: Throat Lozenge, Medicated LOZENGE 1 LOZENGE MUCOUS MEM (14:15)
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
--- NOTE | 2021-10-01 16:00 | MHC.CARE ---
Pt is seen by N and psychiatrist, Dr. Dumont, who are in agreement that pt can be discharged. CARE Team continues to express to that they must pharmacy picking tech the pt. Robbie is in charge of making these d/c plans and can be reached at [phone]. is told they must pharmacy picking tech by 1700.
[2021-10-01 16:14] VITALS: BP 125/78; PULSE 90; RESP 18; TEMP 36.4; O2SAT 97
[2021-10-01] MEDS: QUEtiapine Fumarate 100 MG TABLET PO ×3 (17:33→20:07)
[2021-10-01] MEDS: Divalproex Sodium ER 500 MG TAB.ER.24H PO (17:34)
[2021-10-01] MEDS: Acetaminophen 325 MG TABLET 650 MG PO (18:35)
--- NOTE | 2021-10-01 18:54 | MHC.CARE ---
CARE Team spoke to [facility] staff at length. Agency faxed over a packet that will need to be signed by Dr. Dumont prior to departure regarding medications. MAXIMO Byrne aware of requested information by the usp. Agency also requests medication script be sent to [facility] in [place] and discontinuation order. Pt will be picked up tomorrow by staff around 10am. Pt was updated of news and not satisfied, understandably so. Staff are trying to re-direct him at this time. Provider and staff aware of plan. Florinda- clinical director from [facility] will be coming to support pt Point of contact is Renee Sim [phone] & Yolette [phone]
[2021-10-01 19:51] LABS: COVID-19 Test Negative (Negative)
[2021-10-01] MEDS: traZODone HCL 50 MG TABLET PO (20:05)
[2021-10-01] MEDS: LORazepam 1 MG TABLET 2 MG PO (20:08)
[2021-10-01] MEDS: Prazosin HCL 1 MG CAPSULE PO (20:08)
--- NOTE | 2021-10-01 20:09 | PC.NURSE ---
DDS director at bedside
[2021-10-01 21:05] VITALS: BP 119/78; PULSE 83; RESP 18; O2SAT 96
[2021-10-01 21:53] LABS: Valproate 51.2 mcg/mL (50.0-100.0)
[2021-10-02 00:15] VITALS: BP 127/86; PULSE 82; RESP 17; TEMP 36.5; O2SAT 96
--- NOTE | 2021-10-02 05:59 | PC.NURSE ---
Patient slept through the night, behavior in good control, disposition per [facility] is section 12 inpatient bed search, no update on bed search, patient is on wait list at [facility]. Care team, possible discharge to intermediate, DDS involved, VSS, medication changed, patient is medication compliant, will continue to monitor.
--- NOTE | 2021-10-02 09:55 | PC.NURSE ---
pt sleeping, will allow pt to sleeping.
--- NOTE | 2021-10-02 10:35 | MHC.CARE ---
0820 Call from Florinda Funez ([phone]) DDS psychologist who expressed concern regarding patient?s discharge medications, advised this would be explored with consulting psychiatrist. ? 0830 Call Renee Guerrero ([phone]), [employer] RN who reported same concerns, Dr. Dumont was available and spoke to her regarding rational for medication changes. Renee called back and stated she forgot to mention to Dr. Dumont that patient has a history of refusing medications more scheduled medication doses will offer patient increased opportunities to refuse. Info relayed to .
[2021-10-02] MEDS: Propranolol HCL 10 MG TABLET PO ×3 (11:23→20:03)
[2021-10-02] MEDS: Loratadine 10 MG TABLET PO (11:23)
[2021-10-02] MEDS: FLUoxetine HCl 20 MG CAPSULE 40 MG PO (11:23)
[2021-10-02] MEDS: Divalproex Sodium 500 MG TABLET.DR PO (11:24)
[2021-10-02] MEDS: QUEtiapine Fumarate 100 MG TABLET PO (11:27)
--- NOTE | 2021-10-02 11:36 | PC.NURSE ---
pt woken up for meds, he was compliant with taking all his meds. pt incontinent of urine, he showered and was given clean michael and linen. pt pleasant and cooperative. no behavioral issues observed/reported. will continue to monitor.
[2021-10-02] MEDS: Divalproex Sodium ER 500 MG TAB.ER.24H PO (14:43)
[2021-10-02 15:27] LABS: Ammonia 29 umol/L (13-55)
[2021-10-02 16:00] VITALS: BP 118/76; PULSE 77; RESP 20; TEMP 36.4; O2SAT 96
--- NOTE | 2021-10-02 16:26 | MHC.CARE ---
CARE Team has been in communication with Renee Guerrero (serv[employer]enet) and Florinda Funez (DDS) the tentative plan is for Pt to be discharged 10/03. Prior to d/c Pt will need a repeat COVID and his finger splinted at discharge.
--- NOTE | 2021-10-02 16:41 | PC.NURSE ---
pt pleasant, compliant with taking all meds. pt out of room interacting with staff. no behavioral issues observed/reported. will continue to monitor.
--- NOTE | 2021-10-02 18:15 | PC.NURSE ---
pt speaking with dad on the phone. pt aware of discharge plan and is in agreement with plan. pleasant and cooperative.
[2021-10-02] MEDS: Divalproex Sodium 500 MG TABLET.DR 1000 MG PO (20:03)
[2021-10-02] MEDS: Prazosin HCL 1 MG CAPSULE PO (20:03)
[2021-10-02] MEDS: OLANZapine ODT 10 MG TAB.RAPDIS TRANSLINGU (20:03)
[2021-10-02] MEDS: traZODone HCL 50 MG TABLET PO (20:03)
[2021-10-02 20:07] VITALS: BP 118/80; PULSE 80; RESP 18; O2SAT 97
[2021-10-02 21:40] VITALS: BP 116/70; PULSE 69; RESP 16; O2SAT 96
[2021-10-03 06:47] VITALS: BP 121/69; PULSE 56; RESP 16; O2SAT 97
[2021-10-03] MEDS: Omeprazole 20 MG CAPSULE.DR PO (06:58)
--- NOTE | 2021-10-03 07:06 | PC.NURSE ---
Patient slept through the night, behavior in good control, disposition per [facility] is section 12 inpatient bed search, possible discharge back to care home, DDS involved, VSS, patient is medication compliant, will continue to monitor.
[2021-10-03 07:40] LABS: COVID-19 Test Negative (Negative); IDNOW Serial# 16C4AD1C
[2021-10-03] MEDS: Divalproex Sodium ER 500 MG TAB.ER.24H 1000 MG PO (08:06)
[2021-10-03] MEDS: FLUoxetine HCl 20 MG CAPSULE 40 MG PO (08:06)
[2021-10-03] MEDS: Loratadine 10 MG TABLET PO (08:06)
[2021-10-03] MEDS: OLANZapine ODT 10 MG TAB.RAPDIS TRANSLINGU (08:06)
[2021-10-03] MEDS: Propranolol HCL 10 MG TABLET PO (08:07)
[2021-10-03] MEDS: Chlorhexidine Gluc Oral Rinse 15 ML MOUTHWASH BUCCAL (09:27)
--- NOTE | 2021-10-03 12:07 | MHC.CARE ---
CARE Team has been in communication with MAXIMO Duran from [facility] throughout the morning. Pt will be picked up today by [facility] staff.
== END 2021-10-03 12:13 | disposition other institution (70) ==
PROVIDERS: Emergency Medicine; Nurse Practitioner Family; Physician Assistant; Psychiatry & Neurology Psychiatry; Emergency Provider Emergency Medicine
DX: F63.81 Intermittent explosive disorder (principal); F79 Unspecified intellectual disabilities; R45.851 Suicidal ideations; R41.82 Altered mental status, unspecified; F17.210 Nicotine dependence, cigarettes, uncomplicated; M25.532 Pain in left wrist; M25.531 Pain in right wrist; Z71.6 Tobacco abuse counseling; Z20.822 Contact with and (suspected) exposure to COVID-19; Z79.899 Other long term (current) drug therapy
CPT/HCPCS: 29130; 36415; 73110; 73120; 80048; 80076; 80164; 80307; 82077; 82140; 83735; 85025; 87635; 96372; 99285; J1200; J2060; Q0163

== ENCOUNTER 2021-10-13 21:47 | Emergency (ER) | payer MEDICAID, SELFPAY ==
[2021-10-13] VITALS (7 sets, daily range): BP systolic 113–142; BP diastolic 68–104; PULSE 70–108; RESP 15–18; TEMP 36.2–36.8; O2SAT 94–98; BMI 25.8
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
[2021-10-13] MEDS: LORazepam 2 MG/ML VIAL IM (22:30)
[2021-10-13] MEDS: diphenhydrAMINE HCL 50 MG/ML VIAL IM (22:30)
[2021-10-13] MEDS: Haloperidol Lactate 5 MG/ML VIAL IM (22:30)
[2021-10-13 22:34] LABS: Amphetamine Screen Urine Not Detected (Not Detect); Barbiturates, Urine Not Detected (Not Detect); Benzodiazepines Screen Urine Not Detected (Not Detect); COVID-19 Test Negative (Negative); Cannabinoid Screen Urine Not Detected (Not Detect); Cocaine Screen Urine Not Detected (Not Detect); Fentanyl, urine Not Detected (Not Detect); IDNOW Serial# 55D5AD1C; Opiate Screen Urine Not Detected (Not Detect); Phencyclidine Screen Urine Not Detected (Not Detect)
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
--- NOTE | 2021-10-14 06:55 | PC.NURSE ---
Patient S/P chemical restraint, patient slept through the night, no distress observed/reported, skilled nursing staff dropped off medication list which was 2 years old without dosing detail, med rec completed based on last discharge from ED/pending provider approval, [facility] referral completed/confirmed/pending ETA, VSS, will continue to monitor.
--- NOTE | 2021-10-14 07:38 | PC.NURSE ---
patient appears to remain asleep at present respirations are even and unlabored patient appears in no distress
[2021-10-14 08:56] VITALS: RESP 18
[2021-10-14] MEDS: OLANZapine 10 MG TABLET PO ×2 (09:25→20:35)
[2021-10-14] MEDS: Omeprazole 20 MG CAPSULE.DR PO (09:25)
[2021-10-14] MEDS: Loratadine 10 MG TABLET PO (09:26)
[2021-10-14] MEDS: FLUoxetine HCl 20 MG CAPSULE 40 MG PO (09:26)
[2021-10-14] MEDS: OLANZapine 5 MG TABLET PO ×2 (09:26→17:54)
--- NOTE | 2021-10-14 09:28 | PHA.MEDREC ---
Pharmacy Consult ? Medication Reconciliation Pharmacy has reviewed the medication reconciliation completed by Chavez. Contact [place] pharmacy to confirm current medications, medications last filled 10/03/21. Patient on Dvalproex DR not ER. AM and PM dose were switched per pharmacy prescription. Quetiapine and propranolol were missed from [facility]. Provider updated on changes. Edwina Lyn, DavidD
[2021-10-14 09:39] VITALS: BP 108/81; PULSE 91; RESP 16; TEMP 36.7; O2SAT 98
[2021-10-14] MEDS: QUEtiapine Fumarate 300 MG TABLET PO ×2 (10:45→20:36)
[2021-10-14] MEDS: LORazepam 2 MG/ML VIAL IM ×2 (10:57→11:37)
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
[2021-10-14] MEDS: LORazepam 1 MG TABLET 2 MG PO (17:54)
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
[2021-10-14] MEDS: Melatonin 3 MG TABLET 6 MG PO (20:35)
[2021-10-14] MEDS: Prazosin HCL 1 MG CAPSULE PO (20:35)
[2021-10-14] MEDS: Propranolol HCL 20 MG TABLET PO (20:36)
[2021-10-14 20:38] VITALS: BP 140/98; PULSE 83; RESP 17; O2SAT 99
[2021-10-14 20:47] LABS: MANUAL DIFF FLAG NO
[2021-10-14] MEDS: Divalproex Sodium 500 MG TABLET.DR PO (20:48)
[2021-10-14 20:50] LABS: Basophils Percent Auto 0.4 % (0-2); Eosinophils Absolute Auto 0.2 X10*3/uL (0.0-0.4); Eosinophils Percent Auto 2.2 % (0-4); Hematocrit 38.1 % (42.0-52.0); Imm Gran Abs Auto 0.04 X10*3/uL (0.00-0.03); Imm Gran Pct Auto 0.6 % (0.0-0.4); Lymphocytes Absolute Auto 2.5 X10*3/uL (1.2-4.9); Lymphocytes Percent Auto 37.6 % (20-40); Mean Corpuscular HGB Conc 34.1 g/dl (31.0-36.0); Mean Corpuscular Volume 96.7 fL (80.0-98.0); Mean Platelet Volume 8.8 fL (9.4-12.4); Monocytes Absolute Auto 0.8 X10*3/uL (0.1-1.2); Monocytes Percent Auto 11.6 % (2-11); Neutrophils Absolute Auto 3.2 x10*3/uL (2.0-8.3); Neutrophils Percent Auto 47.6 % (45-73); Platelet Count 201 X10*3/uL (160-400); Red Blood Count 3.94 X10*6/uL (4.60-5.80); Red Cell Distribution Width 12.2 % (11.0-16.0); White Blood Count 6.7 X10*3/uL (4.8-10.8)
[2021-10-14 21:09] LABS: Anion Gap 11 (12-20); Blood Urea Nitrogen 14 mg/dL (9-16); Calcium 9.2 mg/dL (8.4-10.2); Carbon Dioxide 28 mmol/L (22-29); Chloride 106 mmol/L (96-108); Creatinine Clr Calc Pharmacy 113.4; Estimated Glomerular Filt Rate > 60; Glucose Random 104 mg/dL (60-115); Potassium 4.3 mmol/L (3.3-5.1); Sodium 141 mmol/L (135-145)
[2021-10-14 21:13] LABS: Valproate 26.2 mcg/mL (50.0-100.0)
[2021-10-15 02:12] VITALS: BP 125/85; PULSE 80; RESP 17; TEMP 36.8; O2SAT 96
--- NOTE | 2021-10-15 05:47 | PC.NURSE ---
Patient slept through the night, no distress observed/reported, behavior labile, impulsive, and unpredictability, medication compliant, out of bed multiple times requires constant redirection, VSS, will continue to monitor.
--- NOTE | 2021-10-15 05:52 | PC.NURSE ---
Patient assessed by care team, pending disposition, will continue to monitor.
[2021-10-15] MEDS: Omeprazole 20 MG CAPSULE.DR PO (06:05)
--- NOTE | 2021-10-15 07:19 | PC.NURSE ---
patient appears to remain at rest at present, respirations are even and unlabored patient appears in no distress
[2021-10-15] MEDS: LORazepam 2 MG/ML VIAL IM (09:47)
[2021-10-15] MEDS: Ibuprofen 600 MG TABLET PO (10:12)
[2021-10-15] MEDS: QUEtiapine Fumarate 300 MG TABLET PO ×2 (10:12→22:36)
[2021-10-15] MEDS: FLUoxetine HCl 20 MG CAPSULE 40 MG PO (10:13)
[2021-10-15] MEDS: OLANZapine 5 MG TABLET PO (10:13)
[2021-10-15] MEDS: Divalproex Sodium 500 MG TABLET.DR 1000 MG PO (10:13)
[2021-10-15] MEDS: Loratadine 10 MG TABLET PO (10:13)
[2021-10-15] MEDS: OLANZapine 10 MG TABLET PO ×2 (10:13→22:26)
[2021-10-15] MEDS: Propranolol HCL 20 MG TABLET PO ×2 (10:13→22:26)
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
--- NOTE | 2021-10-15 14:15 | HO.PSYCHPN ---
Subjective Subjective Date of Service: 10/15/21 Reason For Visit: crisis Interim History: Pt currently in ED. Discussed pt with RN, care team and reviewed records. Pt had episodes of explosive behaviors early this morning requiring ativan IM with good effect. Pt at times refuses to take oral medications. This advertising writer called OP provider at [facility] (prescriber). Left VM, awaiting call back. This advertising writer knows pt from previous admission on M3- pt has been mostly on depakote, olanzapine, prozac, for past year. While on M3- pt switched from olanzapine to seroquel for better behavioral control of explosive behaviors. Seroquel was titrated while inpatient at [facility]. Pt was in [facility] ED for 21 days, restarted on olanzapine based on reports of improvement of explosive behaviors- at least for brief periods of time. Of note, most explosive behaviors are sporadic, short lived and pt can present fairly calm day after of hours after- this is consistent with explosive intermittent behavioral disorder vs agitation from lucía or psychosis. He was also started on propanolol while on m3 for aggression/agitation. Medication Compliance: Intermittent Side effects from medications: No Attending Groups: No Review of Systems Review of Systems Constitutional : No Weight loss, No Fever, No Chills, No Night Sweats, No Fatigue, No Malaise ENT/Mouth : No Hearing loss, No Ear Pain, No Nasal Congestion, No Sinus Pain, No Hoarseness, No sore throat, No Rhinorrhea, No Swallowing Difficulty Eyes: No Eye Pain, No Swelling, No Redness, No Foreign Body, No Discharge, No Vision Changes Cardiovascular : No Chest Pain, No SOB, No Dyspnea on Exertion, No Orthopnea, No Edema, No Palpitations Respiratory : No Cough, No Sputum, No Wheezing, No Smoke Exposure, No Dyspnea Gastrointestinal : No Nausea, No Vomiting, No Diarrhea, No Constipation, No abdominal Pain, No Hematochezia, No Melena Genitourinary : no irregular bleeding, No Dysuria, No Urinary Frequency, No Hematuria, No Urinary Incontinence, No Urgency, No Flank Pain, No Urinary Flow Changes, No Hesitancy Musculoskeletal : No joint pain, No Myalgias, No Joint Swelling Skin : No Skin Lesions, No rash Neuro : No Weakness, No Numbness, No Paresthesias, No Loss of Consciousness, No Dizziness, No Headache Psych : Complaining of suicidal ideation Heme/Lymph: No Bruising, No Bleeding,No Lymphadenopathy Endocrine : No Polyuria, No Polydipsia, No Temperature Intolerance Mental Status Exam Mental Status Exam Narrative: Appearance: casually groomed, fair hygiene in NAD Behavior:irritable, posturing, threatening to hurt staff psychomotor: agitation noted Speech: stutters at times, delayed rate/rhythm/volume, spontaneous Thought process: perseverance on going to [facility] Thought content:no signs of psychosis, wanting to go to another hospital Mood: upset Affect: irritable SI:denies HI:denies VH/AH:denies Delusions:none Insight/judgment:poor x 2. Memory/cog: alert, oriented x 3. underlying intellectual disability. Diagnostics Vital Signs (24Hr): Vital Signs - 24 hr 10/14/21 20:38 10/15/21 02:12 Temperature 98.2 F Pulse Rate 83 80 Respiratory Rate 17 17 Blood Pressure 140/98 H 125/85 Pulse Oximetry 99 96 BMI result Body Mass Index 25.8 Labs Results: 10/14/21 20:42 10/14/21 20:42 Labs: Laboratory Results - last 48 hr 10/13/21 10/13/21 10/14/21 22:10 22:10 20:42 WBC 6.7 RBC 3.94 L Hgb 13.0 L Hct 38.1 L MCV 96.7 MCH 33.0 MCHC 34.1 RDW 12.2 Plt Count 201 D MPV 8.8 L Immature Gran % (Auto) 0.6 H Neut % (Auto) 47.6 Lymph % (Auto) 37.6 [place] % (Auto) 11.6 H Eos % (Auto) 2.2 Baso % (Auto) 0.4 Lymph # (Auto) 2.5 [place] # (Auto) 0.8 Eos # (Auto) 0.2 Baso # (Auto) 0.0 Abs Immat Gran (auto) 0.04 H Absolute Neuts (auto) 3.2 Absolute Nucleated RBC 0.000 Nucleated RBC % (auto) 0.0 Sodium Potassium Chloride Carbon Dioxide Anion Gap BUN Creatinine Estim Creat Clear Calc Estimated GFR Random Glucose Calcium Urine Opiates Screen Not Detected Urine Fentanyl Screen Not Detected Ur Barbiturates Screen Not Detected Valproic Acid Ur Phencyclidine Scrn Not Detected Ur Amphetamines Screen Not Detected U Benzodiazepines Scrn Not Detected Urine Cocaine Screen Not Detected U Marijuana (THC) Screen Not Detected COVID-19 (GARY) Negative COVID-19 [facility] See Note 10/14/21 10/14/21 20:42 20:42 WBC RBC Hgb Hct MCV MCH MCHC RDW Plt Count MPV Immature Gran % (Auto) Neut % (Auto) Lymph % (Auto) [place] % (Auto) Eos % (Auto) Baso % (Auto) Lymph # (Auto) [place] # (Auto) Eos # (Auto) Baso # (Auto) Abs Immat Gran (auto) Absolute Neuts (auto) Absolute Nucleated RBC Nucleated RBC % (auto) Sodium 141 Potassium 4.3 Chloride 106 Carbon Dioxide 28 Anion Gap 11 L BUN 14 Creatinine 0.89 Estim Creat Clear Calc 113.4 Estimated GFR > 60 Random Glucose 104 Calcium 9.2 Urine Opiates Screen Urine Fentanyl Screen Ur Barbiturates Screen Valproic Acid 26.2 L Ur Phencyclidine Scrn Ur Amphetamines Screen U Benzodiazepines Scrn Urine Cocaine Screen U Marijuana (THC) Screen COVID-19 (GARY) COVID-19 Clin Com Medications Medications Current Medications Calcium Carbonate (Calcium Carbonate 750 Mg Tab.Chew) 750 mg PO Q4H PRN PRN Reason: dyspepsia Divalproex Sodium (Divalproex Sodium 500 Mg Tablet.) 1,000 mg PO DAILY REPLACED BY [facility] Last Admin: 10/15/21 10:13 Dose: 1,000 mg Documented by: Divalproex Sodium (Divalproex Sodium 500 Mg Tablet.) 500 mg PO BEDTIME REPLACED BY [facility] Last Admin: 10/14/21 20:48 Dose: 500 mg Documented by: Fluoxetine HCl (Fluoxetine Hcl 20 Mg Capsule) 40 mg PO DAILY REPLACED BY [facility] Last Admin: 10/15/21 10:13 Dose: 40 mg Documented by: Ibuprofen (Ibuprofen 600 Mg Tablet) 600 mg PO Q6H PRN PRN Reason: fever or pain Last Admin: 10/15/21 10:12 Dose: 600 mg Documented by: Loratadine (Loratadine 10 Mg Tablet) 10 mg PO DAILY REPLACED BY [facility] Last Admin: 10/15/21 10:13 Dose: 10 mg Documented by: Melatonin (Melatonin 3 Mg Tablet) 6 mg PO BEDTIME REPLACED BY [facility] Last Admin: 10/14/21 20:35 Dose: 6 mg Documented by: Non-Formulary Medication (Linaclotide [Linzess]) 145 mcg PO QAM REPLACED BY [facility] Olanzapine (Olanzapine 5 Mg Tablet) 5 mg PO Q4H PRN PRN Reason: agitation Last Admin: 10/15/21 10:13 Dose: 5 mg Documented by: Olanzapine (Olanzapine 10 Mg Tablet) 10 mg PO BID REPLACED BY [facility] Last Admin: 10/15/21 10:13 Dose: 10 mg Documented by: Omeprazole (Omeprazole 20 Mg Capsule.Dr) 20 mg PO DAILY@0630 REPLACED BY [facility] Last Admin: 10/15/21 06:05 Dose: 20 mg Documented by: Prazosin HCl (Prazosin Hcl 1 Mg Capsule) 1 mg PO BEDTIME REPLACED BY [facility]; Protocol Last Admin: 10/14/21 20:35 Dose: 1 mg Documented by: Propranolol HCl (Propranolol Hcl 20 Mg Tablet) 20 mg PO TID REPLACED BY [facility]; Protocol Last Admin: 10/15/21 10:13 Dose: 20 mg Documented by: Psyllium Hydrophilic Mucilloid (Psyllium Seed 3.4 Gm Powd.Pack) 3.4 gm PO DAILY REPLACED BY [facility] Last Admin: 10/15/21 10:14 Dose: Not Given Documented by: Quetiapine Fumarate (Quetiapine Fumarate 300 Mg Tablet) 300 mg PO TID REPLACED BY [facility] Last Admin: 10/15/21 10:12 Dose: 300 mg Documented by: Allergies Allergies Allergy/AdvReac Type Severity Reaction Status Date / Time risperidone [From RISPERDAL] Allergy Unknown MUCLE Verified 12/04/20 19:14 TIGHTNESS Assessment & Plan Assessment & Plan (1) Intermittent explosive disorder: Status: Acute Code(s): F63.81 - Intermittent explosive disorder (2) Intellectual disability: Status: Acute Code(s): F79 - Unspecified intellectual disabilities (3) Mood disorder: Status: Acute Code(s): F39 - Unspecified mood [affective] disorder Plan Mr. Medina is a 31 year-old male with hx of intellectual disability, cerebral palsy, intermittent explosive disorder known by this advertising writer from previous inpatient admission. Pt brought from temporary respite where he is residing. Awaiting collateral information from outpatient providers as there has been multiple recent med changes. PLAN 1. Pt meets inpatient level of care for further stabilization, safety and containment. 2. continue seroquel 300mg po TID, increase propanolol 20mg po TID with aimed to decrease aggression, explosive behaviors. will continue olanzapine 10mg po BID. May consider switching mood stabilizer as pt has been mostly on depakote. recently not taking it consistently, so depakote level on admission less then 26. 3. coordination of care with OP providers. Left for [facility] provider Enrico Jj- awaiting call back. 4- mother given update on pt status. I spent minutes with the patient and/or on the patient floor today, greater than?50% of which was spent counseling/coordinating care. Reason for contiued inpatient stay Substantial Risk for: harm to others, inability to function and rapid decompensation
--- NOTE | 2021-10-15 15:21 | PC.NURSE ---
Unable to complete 1:1 OT tx this date as pt was sleeping two attempts made. Consult had with pts nurse regarding pts mood, demeanor, and interests. Pts nurse provided with sensory item, puzzle, coloring pages, and word finds for pt to engage in when he wakes.
[2021-10-15] MEDS: Divalproex Sodium 500 MG TABLET.DR PO (22:26)
[2021-10-15] MEDS: Melatonin 3 MG TABLET 6 MG PO (22:26)
[2021-10-15] MEDS: Prazosin HCL 1 MG CAPSULE PO (22:26)
--- NOTE | 2021-10-16 05:35 | PC.NURSE ---
Patient slept through the night, no distress observed/reported, medication compliant, intermittent coughing was observed, behavior non concerning at this time but can be unpredictable due to TBI, patient disposition pending care team is following up with the case, VSS, will continue to monitor.
[2021-10-16] MEDS: Omeprazole 20 MG CAPSULE.DR PO (05:42)
[2021-10-16 05:50] VITALS: BP 130/81; PULSE 63; RESP 17; TEMP 36.4; O2SAT 98
--- NOTE | 2021-10-16 07:19 | PC.NURSE ---
REport recieved from [facility]. Pt sleeping. visable chest rise noted.
[2021-10-16] MEDS: FLUoxetine HCl 20 MG CAPSULE 40 MG PO (08:26)
[2021-10-16] MEDS: QUEtiapine Fumarate 300 MG TABLET PO ×3 (08:26→20:44)
[2021-10-16] MEDS: Divalproex Sodium 500 MG TABLET.DR 1000 MG PO (08:26)
[2021-10-16] MEDS: OLANZapine 10 MG TABLET PO ×2 (08:26→20:44)
[2021-10-16] MEDS: Propranolol HCL 20 MG TABLET PO ×3 (08:26→20:44)
[2021-10-16] MEDS: Loratadine 10 MG TABLET PO (08:26)
--- NOTE | 2021-10-16 08:45 | PC.NURSE ---
Pt has been awake for aprox 1 hr. calm. took meds immediately upon waking. states he will check in with staff frequently.
--- NOTE | 2021-10-16 10:42 | PC.NURSE ---
continues to rest calmly in bed.
[2021-10-16 11:19] VITALS: BP 99/52; PULSE 78; RESP 18; O2SAT 95
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
--- NOTE | 2021-10-16 14:36 | MHC.CARE ---
CARE Team spoke with Rona from [facility]. CARE Team relayed treatment recommendations by CARE Team and Mckenna Mckoy NP. Rona will rely information to outpatient treatment team and will communicate with CARE Team tomorrow with a tentativbe discharge on 10/17/21 pending Pt presentation . Rona will call back the CARE Team if there is a predicted barrier for tomorrow being discharged.
--- NOTE | 2021-10-16 14:42 | PC.NURSE ---
Pt remains calm. has been coloring and doing worksheets with OT. no aggressive behaviors during this shift thus far.
--- NOTE | 2021-10-16 15:19 | PC.NURSE ---
Individual OT tx completed this date with focus on goal setting during his stay in behavioral health unit. Pt states Taking my meds as his primary goal following conversation and several verbal prompts to process question presented. Pt engages in coloring activity during tx time and insists this appeals writer color as well. Following tx pt engages in word find activity independently in common area of pod.
[2021-10-16] MEDS: Divalproex Sodium 500 MG TABLET.DR PO (20:44)
[2021-10-16] MEDS: Melatonin 3 MG TABLET 6 MG PO (20:44)
[2021-10-17] MEDS: Omeprazole 20 MG CAPSULE.DR PO (06:16)
--- NOTE | 2021-10-17 06:24 | PC.NURSE ---
Patient slept through the night, no distress observed/reported, behavior appropriate and non concerning at this time, medication compliant, mother's visit went well, VSS, per care team disposition pending most likely patient will be discharged back to [facility], will continue to monitor.
[2021-10-17 06:47] VITALS: RESP 17
--- NOTE | 2021-10-17 07:12 | PC.NURSE ---
patient appears to remain asleep at present respirations are even and unlabored patient appears in no distress
[2021-10-17] MEDS: QUEtiapine Fumarate 300 MG TABLET PO ×2 (08:42→15:34)
[2021-10-17] MEDS: Propranolol HCL 20 MG TABLET PO ×2 (08:42→15:33)
[2021-10-17] MEDS: Loratadine 10 MG TABLET PO (08:42)
[2021-10-17] MEDS: Divalproex Sodium 500 MG TABLET.DR 1000 MG PO (08:42)
[2021-10-17] MEDS: OLANZapine 10 MG TABLET PO (08:43)
[2021-10-17] MEDS: FLUoxetine HCl 20 MG CAPSULE 40 MG PO (08:43)
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
--- NOTE | 2021-10-17 12:58 | MHC.CARE ---
CARE Team is in communication with pt's clinician, Rona, who is helping to coordinate a dc for today.
--- NOTE | 2021-10-17 13:24 | PC.NURSE ---
Patient's mom called asking about the laceration she noted above the patients left eye brow. Small mostly healed abrasion noted to area. Per patient I had that when I came in .
[2021-10-17 14:00] VITALS: RESP 18
--- NOTE | 2021-10-17 14:07 | PC.NURSE ---
Nurse to nurse given with Renee [facility].
[2021-10-17 15:35] VITALS: BP 120/83; PULSE 74; TEMP 36.4; O2SAT 99
== END 2021-10-17 16:41 | disposition home or self-care (01) ==
PROVIDERS: Social Worker; Emergency Provider Emergency Medicine
DX: R45.851 Suicidal ideations (principal); R45.1 Restlessness and agitation; Z79.899 Other long term (current) drug therapy; Z20.822 Contact with and (suspected) exposure to COVID-19
CPT/HCPCS: 36415; 80048; 80164; 80307; 85025; 87635; 96372; 99285; J1200; J2060

== ENCOUNTER 2021-10-19 11:06 | Emergency (ER) | payer MEDICAID, SELFPAY ==
[2021-10-19 11:14] VITALS: BP 114/80; PULSE 86; O2SAT 96; BMI 22.7
--- NOTE | 2021-10-19 11:23 | ED.PSYCH ---
HPI - Psych General Chief Complaint: Psychiatric Symptoms Stated Complaint: section 12 Time Seen by Provider: 10/19/21 11:15 Source: patient and EMS Mode of arrival: EMS Limitations: other (Not cooperative not answering questions) History of Present Illness HPI Narrative: 31-year-old male with a past medical history of TBI, intellectual disability, intermittent explosive disorder who is currently at a intermediate presenting to the ED via EMS with police as well after being aggressive and destructive behavior at the intermediate prior to arrival. He also reported that he wanted to harm himself although no plan in place. he denies any HI / auditory visual sensations. He denies any recent drug or alcohol usage. He denies any other symptoms complaints or concerns at this time. MD complaint: suicidal ideation and feels depressed Onset (ago): day(s) Duration: constant and getting worse History of same: Yes Associated psychiatric symptoms: depression and suicidal ideation Associated symptoms: denies other symptoms If self harm: admits thoughts of self harm ( no plan in place) Related Data Home Medications Medication Instructions Recorded Confirmed melatonin 3 mg tablet 6 mg PO BEDTIME 10/14/21 10/19/21 Previous Rx's Medication Instructions Recorded calcium carbonate 500 mg calcium 500 mg PO Q4-6H PRN 30 Days #60 tab 10/03/21 (1,250 mg) chewable tablet fluoxetine 40 mg capsule (Prozac) 40 mg PO QAM 30 Days #30 cap 10/03/21 ibuprofen 600 mg tablet 600 mg PO Q6H PRN 30 Days #30 tab 10/03/21 linaclotide 145 mcg capsule 145 mcg PO QAM 30 Days #30 cap 10/03/21 (Linzess) loratadine 10 mg tablet (Claritin) 10 mg PO DAILY 30 Days #30 tab 10/03/21 omeprazole 20 mg tablet,delayed 20 mg PO DAILY 30 Days #30 tab 10/03/21 release psyllium husk (with sugar) 3.4 1 tbsp PO QAM #861 g 10/03/21 gram/12 gram oral powder divalproex 500 mg tablet,delayed 1,000 mg PO DAILY #30 tab 10/17/21 release divalproex 500 mg tablet,delayed 500 mg PO BEDTIME #30 tab 10/17/21 release olanzapine 10 mg tablet 10 mg PO BID #60 tab 10/17/21 olanzapine 5 mg tablet 5 mg PO QID PRN #90 tab 10/17/21 propranolol 20 mg tablet 20 mg PO TID #90 tab 10/17/21 quetiapine 300 mg tablet 300 mg PO TID #90 tab 10/17/21 Allergies Allergy/AdvReac Type Severity Reaction Status Date / Time risperidone [From RISPERDAL] Allergy Unknown MUCLE Verified 12/04/20 19:14 TIGHTNESS Review of Systems Review of Systems: Constitutional : No Fever, No Chills ENT/Mouth : No Ear Pain, No Nasal Congestion, No sore throat Eyes: No Eye Pain, No Swelling, No Redness Cardiovascular : No Chest Pain, No SOB Respiratory : No Cough, No Sputum, No Dyspnea Gastrointestinal : No ingestions, No Nausea, No Vomiting, No Diarrhea, No Hematochezia, No Melena Genitourinary : No Dysuria, No Urinary Frequency, No Hematuria Musculoskeletal : No Myalgias Skin : No Skin Lesions, No rash Neuro : No Weakness, No Numbness, No Paresthesias, No Dizziness, No Headache Psych : + Anxiety, + Depression, + SI, + thoughts of self injury, No HI, No AVH, Heme/Lymph: No Lymphadenopathy Endocrine : No Polyuria, No Polydipsia Yes all other systems are reviewed and are negative PMF Past Medical History Attestation statement: The following information was validated with the patient. Medical History Constipation Mental health disorder Social History Social History Household Members: Other Household Members Other:: lives in intermediate with 3 other patients Housing: House Do you presently have visiting nurse or other home services: Yes (DDS intermediate) Alcohol intake: former Patient Tobacco Use Status: Former Tobacco user Quit Date: 06/2020 Tobacco use type: Cigarette Cigarette Packs Per Day: 1 Cigarettes Per Day: 20.0 Years Smoked: 12 Second Hand Smoke Exposure: No Advance Directives: No Advance Directives Information Provided: No service: No Sexual orientation: Did not discuss. Physical Exam Vital Signs: Vital Signs: Last Vital Signs Temp 98.7 F 10/19/21 12:22 Pulse 72 10/19/21 20:45 Resp 16 10/19/21 12:22 BP 104/55 L 10/19/21 20:45 Pulse Ox 96 10/19/21 20:45 BMI result Body Mass Index 22.7 vital signs have been reviewed as normal and appeared to be correct. Blood pressure normal. Heart rate normal. Respiration rate normal. Temperature normal. Oxygen saturation normal. Appearance: Alert. Oriented X3. No acute distress. Head: Normal external exam. Normocephalic. Atraumatic. No Londono signs noted. No raccoon eyes noted Eyes: PERRLA. EOMI. Conjunctiva and sclera normal. Eyelids normal. ENT: EAC normal. TM's Normal. Pharynx normal. Uvula midline. Moist mucous membranes. No trismus noted. No drooling noted. No muffled voice noted. Neck: Normal inspection. Neck supple. FROM. No adenopathy. Thyroid Normal. No meningeal signs. No neck mass noted. CVS: Normal heart rate and rhythm. Heart sound normal. No murmurs noted. Pulses normal throughout. Respiratory: No respiratory distress. Painless inspiration. Breath sounds normal. No wheezes/rales/rhonchi noted. Chest nontender. No accessory muscle usage noted or decreased air movement noted. Abdomen: Soft and nontender. Bowel sounds normal in all 4 quadrants. No distention noted. No organomegaly noted. No visible injury noted. Back: No CVA tenderness. Full range of motion noted. Skin: Skin warm and dry. Normal skin color. Normal skin turgor. No rashes/lesions/lacerations noted. Extremities: No lower extremity edema. Extremities exhibit normal range of motion. Extremities nontender. Neuro: Oriented X 3. No motor deficit. No sensory deficit. Reflexes normal. CN's II-XII intact bilaterally? Psych: Appearance grossly normal, well-kept, mental status normal, speech and movement normal, speech clear, patient appears very sad and anxious along with depressed. Course Course Course Narrative: 11:40am - 31-year-old male with a past medical history of TBI, intellectual disability, intermittent explosive disorder who is currently at a intermediate presenting to the ED via EMS with police as well after being aggressive and destructive behavior at the intermediate prior to arrival. He also reported that he wanted to harm himself although no plan in place. he denies any HI / auditory visual sensations. Plan: Labs, UA, drug urine screen, COVID swab then placed in Physician observation because the patient needs more time to be evaluated by crisis to evaluate the patient needs to be further evaluated in treatment and psychiatric rehabilitation will continue to monitor at this time. Reevaluation(s) Reevaluation #1: - labs reviewed patient with a mild baseline anemia similar compared to prior. BUN 18. Alkaline phosphate 119. Otherwise all other labs are within normal limits. UA within normal limits no evidence of UTI. Valproic acid level 44.6 although increased when compared to prior. Patient negative for EtOH. Patient negative for COVID. Patient awaiting crisis evaluation will continue to monitor. Time: 15:29 [facility] - Psych Medical Records Attestation: I reviewed the patient's medical records. Lab Data Attestation: I reviewed the patient's lab results. Result diagrams: 10/19/21 12:51 10/19/21 12:51 Labs: Lab Results 10/19/21 10/19/21 10/19/21 Range/Units 12:09 12:51 12:51 WBC 7.8 (4.8-10.8) X10*3/uL RBC 4.19 L (4.60-5.80) X10*6/uL Hgb 13.6 L (14.0-18.0) g/dl Hct 39.8 L (42.0-52.0) % MCV 95.0 (80.0-98.0) fL MCH 32.5 (27.0-33.0) pg MCHC 34.2 (31.0-36.0) g/dl RDW 11.8 (11.0-16.0) % Plt Count 194 (160-400) X10*3/uL MPV 8.9 L (9.4-12.4) fL Immature Gran % (Auto) 0.8 H (0.0-0.4) % Neut % (Auto) 62.8 (45-73) % Lymph % (Auto) 25.9 (20-40) % Casey % (Auto) 8.6 (2-11) % Eos % (Auto) 1.4 (0-4) % Baso % (Auto) 0.5 (0-2) % Lymph # (Auto) 2.0 (1.2-4.9) X10*3/uL Casey # (Auto) 0.7 (0.1-1.2) X10*3/uL Eos # (Auto) 0.1 (0.0-0.4) X10*3/uL Baso # (Auto) 0.0 (0.0-0.2) X10*3/uL Abs Immat Gran (auto) 0.06 H (0.00-0.03) X10*3/uL Absolute Neuts (auto) 4.9 (2.0-8.3) x10*3/uL Absolute Nucleated RBC 0.000 (0.0-0.012) X10*3/uL Nucleated RBC % (auto) 0.0 (0.0-0.2) /100WBC Sodium 137 (135-145) mmol/L Potassium 4.4 (3.3-5.1) mmol/L Chloride 103 (96-108) mmol/L Carbon Dioxide 26 (22-29) mmol/L Anion Gap 12 (12-20) BUN 18 H (9-16) mg/dL Creatinine 1.05 (0.5-1.4) mg/dL Estim Creat Clear Calc 95.6 Estimated GFR > 60 Random Glucose 111 (60-115) mg/dL Calcium 9.0 (8.4-10.2) mg/dL Magnesium 2.1 (1.6-2.6) mg/dL Total Bilirubin 0.6 (0.0-1.0) mg/dL AST 15 (5-37) U/L ALT 9 (0-40) U/L Alkaline Phosphatase 119 H (39-117) U/L Total Protein 7.9 (6.5-8.0) g/dL Albumin 4.2 (3.5-5.0) g/dL Urine Color Urine Appearance Urine pH (5.0-8.0) Ur Specific [place] (1.005-1.025) Urine Protein (NEG-TRACE) MG/DL Urine Glucose (UA) (NEG) MG/DL Urine Ketones (NEG) MG/DL Urine Blood (NEG) Urine Nitrite (NEG) Ur Leukocyte Esterase (NEG) Urine Opiates Screen (Not Detect) Urine Fentanyl Screen (Not Detect) Ur Barbiturates Screen (Not Detect) Valproic Acid 44.6 L (50.0-100.0) mcg/mL Ur Phencyclidine Scrn (Not Detect) Ur Amphetamines Screen (Not Detect) U Benzodiazepines Scrn (Not Detect) Urine Cocaine Screen (Not Detect) U Marijuana (THC) Screen (Not Detect) Ethyl Alcohol mg/dL COVID-19 (GARY) Negative (Negative) COVID-19 Clin Com See Note 10/19/21 10/19/21 10/19/21 Range/Units 12:51 15:05 15:05 WBC (4.8-10.8) X10*3/uL RBC (4.60-5.80) X10*6/uL Hgb (14.0-18.0) g/dl Hct (42.0-52.0) % MCV (80.0-98.0) fL MCH (27.0-33.0) pg MCHC (31.0-36.0) g/dl RDW (11.0-16.0) % Plt Count (160-400) X10*3/uL MPV (9.4-12.4) fL Immature Gran % (Auto) (0.0-0.4) % Neut % (Auto) (45-73) % Lymph % (Auto) (20-40) % Casey % (Auto) (2-11) % Eos % (Auto) (0-4) % Baso % (Auto) (0-2) % Lymph # (Auto) (1.2-4.9) X10*3/uL Casey # (Auto) (0.1-1.2) X10*3/uL Eos # (Auto) (0.0-0.4) X10*3/uL Baso # (Auto) (0.0-0.2) X10*3/uL Abs Immat Gran (auto) (0.00-0.03) X10*3/uL Absolute Neuts (auto) (2.0-8.3) x10*3/uL Absolute Nucleated RBC (0.0-0.012) X10*3/uL Nucleated RBC % (auto) (0.0-0.2) /100WBC Sodium (135-145) mmol/L Potassium (3.3-5.1) mmol/L Chloride (96-108) mmol/L Carbon Dioxide (22-29) mmol/L Anion Gap (12-20) BUN (9-16) mg/dL Creatinine (0.5-1.4) mg/dL Estim Creat Clear Calc Estimated GFR Random Glucose (60-115) mg/dL Calcium (8.4-10.2) mg/dL Magnesium (1.6-2.6) mg/dL Total Bilirubin (0.0-1.0) mg/dL AST (5-37) U/L ALT (0-40) U/L Alkaline Phosphatase (39-117) U/L Total Protein (6.5-8.0) g/dL Albumin (3.5-5.0) g/dL Urine Color YELLOW Urine Appearance CLEAR Urine pH 7.0 (5.0-8.0) Ur Specific [place] 1.010 (1.005-1.025) Urine Protein NEG (NEG-TRACE) MG/DL Urine Glucose (UA) NEG (NEG) MG/DL Urine Ketones NEG (NEG) MG/DL Urine Blood NEG (NEG) Urine Nitrite NEG (NEG) Ur Leukocyte Esterase NEG (NEG) Urine Opiates Screen Not Detected (Not Detect) Urine Fentanyl Screen Not Detected (Not Detect) Ur Barbiturates Screen Not Detected (Not Detect) Valproic Acid (50.0-100.0) mcg/mL Ur Phencyclidine Scrn Not Detected (Not Detect) Ur Amphetamines Screen Not Detected (Not Detect) U Benzodiazepines Scrn Not Detected (Not Detect) Urine Cocaine Screen Not Detected (Not Detect) U Marijuana (THC) Screen Not Detected (Not Detect) Ethyl Alcohol < 10 mg/dL COVID-19 (GARY) (Negative) COVID-19 Clin Com Discharge Plan Discharge Clinical Impression: Intermittent explosive disorder in adult, Intellectual disability Patient Disposition: Still a Patient Prescriptions: No Action omeprazole 20 mg tablet,delayed release (DR/EC) 20 mg PO DAILY 30 Days Qty: 30 0RF Rx Instructions: Take every AM 1/2 hour prior to meal fluoxetine [Prozac] 40 mg capsule 40 mg PO QAM 30 Days Qty: 30 0RF Linzess 145 mcg capsule 145 mcg PO QAM 30 Days Qty: 30 0RF psyllium husk (with sugar) 3.4 gram/12 gram powder 1 tbsp PO QAM Qty: 861 0RF Rx Instructions: in 8oz fluid every morning loratadine [Claritin] 10 mg tablet 10 mg PO DAILY 30 Days Qty: 30 0RF Rx Instructions: Every AM calcium carbonate 500 mg calcium (1,250 mg) tablet,chewable 500 mg PO Q4-6H PRN (Reason: dyspepsia) 30 Days Qty: 60 0RF ibuprofen 600 mg tablet 600 mg PO Q6H PRN (Reason: fever or pain) 30 Days Qty: 30 0RF melatonin 3 mg Tablet 6 mg PO BEDTIME 0RF quetiapine 300 mg Tablet 300 mg PO TID Qty: 90 0RF olanzapine 5 mg Tablet 5 mg PO QID PRN (Reason: Agitation) Qty: 90 0RF olanzapine 10 mg Tablet 10 mg PO BID Qty: 60 0RF divalproex 500 mg Tablet,Delayed Release (Dr/Ec) 1,000 mg PO DAILY Qty: 30 0RF divalproex 500 mg Tablet,Delayed Release (Dr/Ec) 500 mg PO BEDTIME Qty: 30 0RF propranolol 20 mg Tablet 20 mg PO TID Qty: 90 0RF Protocol: Hold for SBP/HR < HOLD for SBP < : 90 HOLD for HR < : 60
--- NOTE | 2021-10-19 11:26 | PC.NURSE ---
PT REFUSED TO ANSWER QUESTIONS OR HAVE VS DONE. ALSO WOULD NOT SPEAK WITH RUCHI CHRISTOPHER
[2021-10-19] MEDS: HaloperidoL 5 MG TABLET PO (12:01)
[2021-10-19] MEDS: diphenhydrAMINE HCL 25 MG TABLET 50 MG PO (12:01)
[2021-10-19] MEDS: LORazepam 1 MG TABLET 2 MG PO (12:01)
[2021-10-19 12:22] VITALS: BP 130/77; PULSE 88; RESP 16; TEMP 37.1; O2SAT 95
[2021-10-19 12:36] LABS: COVID-19 Test Negative (Negative)
[2021-10-19 12:55] LABS: MANUAL DIFF FLAG NO
[2021-10-19 12:56] LABS: Basophils Percent Auto 0.5 % (0-2); Eosinophils Absolute Auto 0.1 X10*3/uL (0.0-0.4); Eosinophils Percent Auto 1.4 % (0-4); Hematocrit 39.8 % (42.0-52.0); Hemoglobin 13.6 g/dl (14.0-18.0); Imm Gran Abs Auto 0.06 X10*3/uL (0.00-0.03); Imm Gran Pct Auto 0.8 % (0.0-0.4); Lymphocytes Percent Auto 25.9 % (20-40); Mean Corpuscular HGB Conc 34.2 g/dl (31.0-36.0); Mean Corpuscular Hemoglobin 32.5 pg (27.0-33.0); Mean Platelet Volume 8.9 fL (9.4-12.4); Monocytes Absolute Auto 0.7 X10*3/uL (0.1-1.2); Monocytes Percent Auto 8.6 % (2-11); Neutrophils Absolute Auto 4.9 x10*3/uL (2.0-8.3); Neutrophils Percent Auto 62.8 % (45-73); Platelet Count 194 X10*3/uL (160-400); Red Blood Count 4.19 X10*6/uL (4.60-5.80); Red Cell Distribution Width 11.8 % (11.0-16.0); White Blood Count 7.8 X10*3/uL (4.8-10.8)
[2021-10-19 13:08] LABS: Ethanol < 10 mg/dL
[2021-10-19 13:12] LABS: Alanine Aminotransferase 9 U/L (0-40); Albumin Level 4.2 g/dL (3.5-5.0); Alkaline Phosphatase 119 U/L (39-117); Anion Gap 12 (12-20); Aspartate Amino Transferase 15 U/L (5-37); Bilirubin Total 0.6 mg/dL (0.0-1.0); Blood Urea Nitrogen 18 mg/dL (9-16); Carbon Dioxide 26 mmol/L (22-29); Chloride 103 mmol/L (96-108); Creatinine Clr Calc Pharmacy 95.6; Estimated Glomerular Filt Rate > 60; Glucose Random 111 mg/dL (60-115); Magnesium 2.1 mg/dL (1.6-2.6); Potassium 4.4 mmol/L (3.3-5.1); Sodium 137 mmol/L (135-145); Total Protein 7.9 g/dL (6.5-8.0)
[2021-10-19 13:16] LABS: Valproate 44.6 mcg/mL (50.0-100.0)
--- NOTE | 2021-10-19 13:55 | PC.NURSE ---
PT WITH PERIODS OF ESCALATION, BANGING HEAD AGAINST WALL, KICKING WALL, STANDING CLOSE TO DOORS TRYING TO EXIT. TREATING STAFF.
[2021-10-19 15:19] LABS: Appearance Urine CLEAR; Color Urine YELLOW; Glucose Urine UA NEG (NEG); Leukocyte Esterase Urine NEG (NEG); Nitrite Urine NEG (NEG); Urine Blood NEG (NEG); Urine Ketones NEG (NEG); Urine Protein NEG (NEG-TRACE)
[2021-10-19 15:43] LABS: Amphetamine Screen Urine Not Detected (Not Detect); Barbiturates, Urine Not Detected (Not Detect); Benzodiazepines Screen Urine Not Detected (Not Detect); Cannabinoid Screen Urine Not Detected (Not Detect); Cocaine Screen Urine Not Detected (Not Detect); Fentanyl, urine Not Detected (Not Detect); Opiate Screen Urine Not Detected (Not Detect); Phencyclidine Screen Urine Not Detected (Not Detect)
--- NOTE | 2021-10-19 19:05 | PHA.MEDREC ---
Pharmacy Consult ? Medication Reconciliation Pharmacy has completed the medication reconciliation. Patient was just discharged 10/17/21 from the Emergency Department. During previous stay medication reconciliation compeleted by RN was reviewed by me. While held in the emergency room, Mckenna Gusman increase patient propranolol dose from 10 mg TID to 20 mg TID and quetiapine 300 mg daily to 300 mg TID. An olanzepine 5 mg QID PRN was also added to patient medications as patient had multiple aggressive episodes. Edwina Lyn, PharmD
[2021-10-19] MEDS: Melatonin 3 MG TABLET 6 MG PO (20:39)
[2021-10-19] MEDS: OLANZapine 10 MG TABLET PO (20:39)
[2021-10-19] MEDS: QUEtiapine Fumarate 300 MG TABLET PO (20:39)
[2021-10-19] MEDS: Divalproex Sodium 500 MG TABLET.DR PO (20:39)
[2021-10-19 20:45] VITALS: BP 104/55; PULSE 72; O2SAT 96
[2021-10-19] MEDS: Propranolol HCL 20 MG TABLET PO (20:45)
[2021-10-20] MEDS: Omeprazole 20 MG CAPSULE.DR PO (06:27)
--- NOTE | 2021-10-20 06:39 | PC.NURSE ---
Patient slept through the night, no distress observed/reported, medication compliant, behavior non concerning at this time but unpredictable, awaiting BHN evaluation in the morning, VSS, will continue to monitor.
[2021-10-20] MEDS: Divalproex Sodium 500 MG TABLET.DR 1000 MG PO (07:52)
[2021-10-20] MEDS: Propranolol HCL 20 MG TABLET PO ×3 (07:52→20:37)
[2021-10-20] MEDS: Loratadine 10 MG TABLET PO (07:52)
[2021-10-20] MEDS: QUEtiapine Fumarate 300 MG TABLET PO ×3 (07:52→20:37)
[2021-10-20] MEDS: FLUoxetine HCl 20 MG CAPSULE 40 MG PO (07:52)
[2021-10-20] MEDS: OLANZapine 10 MG TABLET PO ×2 (07:53→20:37)
--- NOTE | 2021-10-20 07:55 | PC.NURSE ---
took meds, drinking coffee, pleasant and cooperative,
[2021-10-20 08:17] VITALS: BP 107/71; PULSE 86; RESP 18; TEMP 37.2; O2SAT 97
--- NOTE | 2021-10-20 14:45 | MHC.HEMONC ---
Pt seen this date for individual OT tx session with focus on developing an achievable nursing home plan for pts place of residence/behavioral modifications. Pt states I would like to live here or in another hospital . Due to pts neurocognitive and developmental deficits he lacks insight, judgment, as well as impulse control, further discussion warranted to achieve terminal operations supervisor plan/strategies. Pt is provided with sensory item, coloring pages, and word find activities as these are activities that he expresses interest in, occupy his time, and have apparent good affect on regulating/maintaining a calm and stable mood.
[2021-10-20] MEDS: Divalproex Sodium 500 MG TABLET.DR PO (20:37)
[2021-10-20] MEDS: Melatonin 3 MG TABLET 6 MG PO (20:37)
[2021-10-20 20:38] VITALS: BP 123/76; PULSE 78; RESP 14; O2SAT 96
--- NOTE | 2021-10-21 06:34 | PC.NURSE ---
Patient slept through the night, no distress observed/reported, medication compliant, behavior non concerning at this time but unpredictable, care team is coordinating discharge back to senior care, VSS, will continue to monitor.
[2021-10-21 06:41] VITALS: RESP 17
[2021-10-21] MEDS: Omeprazole 20 MG CAPSULE.DR PO (06:47)
--- NOTE | 2021-10-21 07:30 | PC.NURSE ---
patient appears to remain asleep at present respirations are even and unlabored patient appears in no distress
[2021-10-21] MEDS: Divalproex Sodium 500 MG TABLET.DR 1000 MG PO (08:36)
[2021-10-21] MEDS: QUEtiapine Fumarate 300 MG TABLET PO ×2 (08:36→14:18)
[2021-10-21] MEDS: Loratadine 10 MG TABLET PO (08:36)
[2021-10-21] MEDS: Propranolol HCL 20 MG TABLET PO ×2 (08:37→14:17)
[2021-10-21] MEDS: FLUoxetine HCl 20 MG CAPSULE 40 MG PO (08:37)
[2021-10-21] MEDS: OLANZapine 10 MG TABLET PO (08:37)
--- NOTE | 2021-10-21 09:39 | MHC.CARE ---
Call to fdc clinician, Rona, she stated that the team has been emailing about patient returning to fdc this morning and RN, Angelita, should be calling soon to start the process, if we do not hear from her soon call Rona.
== END 2021-10-21 14:19 ==
PROVIDERS: Physician Assistant Medical; Emergency Provider Emergency Medicine
DX: F63.81 Intermittent explosive disorder (principal); F79 Unspecified intellectual disabilities; Z79.899 Other long term (current) drug therapy; Z87.820 Personal history of traumatic brain injury; Z20.822 Contact with and (suspected) exposure to COVID-19
CPT/HCPCS: 36415; 80053; 80164; 80307; 81003; 82077; 83735; 85025; 87635; 99284; 99285; Q0163

== ENCOUNTER 2021-11-03 10:25 | Emergency (ER) | payer MEDICAID, SELFPAY ==
--- NOTE | 2021-11-03 10:28 | ED.PSYCH ---
HPI - Psych General Chief Complaint: Psychiatric Symptoms Stated Complaint: sec 12 si c/c Time Seen by Provider: 11/03/21 10:28 Source: patient Mode of arrival: EMS Limitations: no limitations History of Present Illness MD complaint: suicidal ideation and feels depressed Onset (ago): day(s) (2) Duration: constant History of same: Yes Relieving factors: none Exacerbating factors: other (stressed out) Context: significant life stressor Associated psychiatric symptoms: depression and suicidal ideation Associated symptoms: denies other symptoms Treatments prior to arrival: placed on mental health hold If self harm: admits thoughts of self harm, has plan and has acted on plan (held a knife to his wrist last night) Related Data Home Medications Medication Instructions Recorded Confirmed melatonin 3 mg tablet 6 mg PO BEDTIME 10/14/21 10/19/21 Previous Rx's Medication Instructions Recorded calcium carbonate 500 mg calcium 500 mg PO Q4-6H PRN 30 Days #60 tab 10/03/21 (1,250 mg) chewable tablet fluoxetine 40 mg capsule (Prozac) 40 mg PO QAM 30 Days #30 cap 10/03/21 ibuprofen 600 mg tablet 600 mg PO Q6H PRN 30 Days #30 tab 10/03/21 linaclotide 145 mcg capsule 145 mcg PO QAM 30 Days #30 cap 10/03/21 (Linzess) loratadine 10 mg tablet (Claritin) 10 mg PO DAILY 30 Days #30 tab 10/03/21 omeprazole 20 mg tablet,delayed 20 mg PO DAILY 30 Days #30 tab 10/03/21 release psyllium husk (with sugar) 3.4 1 tbsp PO QAM #861 g 10/03/21 gram/12 gram oral powder divalproex 500 mg tablet,delayed 1,000 mg PO DAILY #30 tab 10/17/21 release divalproex 500 mg tablet,delayed 500 mg PO BEDTIME #30 tab 10/17/21 release olanzapine 10 mg tablet 10 mg PO BID #60 tab 10/17/21 olanzapine 5 mg tablet 5 mg PO QID PRN #90 tab 10/17/21 propranolol 20 mg tablet 20 mg PO TID #90 tab 10/17/21 quetiapine 300 mg tablet 300 mg PO TID #90 tab 10/17/21 Allergies Allergy/AdvReac Type Severity Reaction Status Date / Time risperidone [From RISPERDAL] Allergy Unknown MUCLE Verified 12/04/20 19:14 TIGHTNESS Review of Systems Review of Systems: Constitutional : No Fever, No Chills ENT/Mouth : No Ear Pain, No Nasal Congestion, No sore throat Eyes: No Eye Pain, No Swelling, No Redness Cardiovascular : No Chest Pain, No SOB Respiratory : No Cough, No Sputum, No Dyspnea Gastrointestinal : No Nausea, No Vomiting, No Diarrhea, No Hematochezia, No Melena Genitourinary : No Dysuria, No Urinary Frequency, No Hematuria Musculoskeletal : No Myalgias Skin : No Skin Lesions, No rash Neuro : No Weakness, No Numbness, No Paresthesias, No Dizziness, No Headache Psych : positive Anxiety, positive Depression, positive SI no HI Heme/Lymph: No Lymphadenopathy Endocrine : No Polyuria, No Polydipsia All other systems reviewed and are negative [facility] Past Medical History Attestation statement: The following information was validated with the patient. Medical History Constipation Mental health disorder Social History Social History Household Members: Other Household Members Other:: lives in long term with 3 other patients Housing: House Do you presently have visiting nurse or other home services: Yes ([facility] long term) Alcohol intake: former Patient Tobacco Use Status: Former Tobacco user Quit Date: 06/2020 Tobacco use type: Cigarette Cigarette Packs Per Day: 1 Cigarettes Per Day: 20.0 Years Smoked: 12 Second Hand Smoke Exposure: No Advance Directives: No Advance Directives Information Provided: No service: No Sexual orientation: Did not discuss. Physical Exam Vital Signs: Vital Signs: Last Vital Signs Temp 98.1 F 11/03/21 10:38 Pulse 80 11/03/21 10:38 Resp 18 11/03/21 10:38 BP 108/67 11/03/21 10:38 Pulse Ox 97 11/03/21 10:38 BMI result Body Mass Index 26.6 Appearance: Alert. Oriented X3. No acute distress. Eyes: Pupils equal, round and reactive to light. ENT: Pharynx normal. Neck: Normal inspection. Neck supple. CVS: Normal heart rate and rhythm. Pulses normal. Respiratory: No respiratory distress. Breath sounds normal. Abdomen: Soft and nontender. Skin: Skin warm and dry. Normal skin color. Normal skin turgor. Extremities: No lower extremity edema. No calf ttp no signs of trauma Neuro: Oriented X 3. No motor deficit. No sensory deficit. CN 2-12 intact Course Course Course Narrative: Physician observation started at 1210pm. Patient placed in physician observation because the patient needed more time for N to assess the need for psych admission. At the time observation was started the patient's vitals were stable, patient is alert and oriented, Neuro: nonfocal, CV RRR, Lungs clear MDM - Psych MDM Narrative Medical decision making narrative: 31 yo male with hx of mood disorder, intermittent explosive disorder, encephalopathy, intellectual disability here with c/o depression and SI plan was to cut himself with knife last night - will need labs, N consult Lab Data Result diagrams: 11/03/21 11:29 11/03/21 11:29 Labs: Lab Results 11/03/21 11/03/21 11/03/21 Range/Units 11:29 11:29 11:29 WBC 6.5 (4.8-10.8) X10*3/uL RBC 3.88 L (4.60-5.80) X10*6/uL Hgb 12.7 L (14.0-18.0) g/dl Hct 37.4 L (42.0-52.0) % MCV 96.4 (80.0-98.0) fL MCH 32.7 (27.0-33.0) pg MCHC 34.0 (31.0-36.0) g/dl RDW 11.9 (11.0-16.0) % Plt Count 191 (160-400) X10*3/uL MPV 8.8 L (9.4-12.4) fL Immature Gran % (Auto) 1.2 H (0.0-0.4) % Neut % (Auto) 54.7 (45-73) % Lymph % (Auto) 30.5 (20-40) % [place] % (Auto) 10.6 (2-11) % Eos % (Auto) 2.5 (0-4) % Baso % (Auto) 0.5 (0-2) % Lymph # (Auto) 2.0 (1.2-4.9) X10*3/uL [place] # (Auto) 0.7 (0.1-1.2) X10*3/uL Eos # (Auto) 0.2 (0.0-0.4) X10*3/uL Baso # (Auto) 0.0 (0.0-0.2) X10*3/uL Abs Immat Gran (auto) 0.08 H (0.00-0.03) X10*3/uL Absolute Neuts (auto) 3.6 (2.0-8.3) x10*3/uL Absolute Nucleated RBC 0.000 (0.0-0.012) X10*3/uL Nucleated RBC % (auto) 0.0 (0.0-0.2) /100WBC Sodium 138 (135-145) mmol/L Potassium 4.4 (3.3-5.1) mmol/L Chloride 104 (96-108) mmol/L Carbon Dioxide 25 (22-29) mmol/L Anion Gap 13 (12-20) BUN 9 (9-16) mg/dL Creatinine 0.89 (0.5-1.4) mg/dL Estim Creat Clear Calc 117.4 Estimated GFR > 60 Random Glucose 97 (60-115) mg/dL Calcium 9.1 (8.4-10.2) mg/dL Total Bilirubin 0.4 (0.0-1.0) mg/dL Direct Bilirubin 0.2 (0.0-0.5) mg/dL AST 12 (5-37) U/L ALT 11 (0-40) U/L Alkaline Phosphatase 110 (39-117) U/L Total Protein 7.2 (6.5-8.0) g/dL Albumin 3.8 (3.5-5.0) g/dL Valproic Acid (50.0-100.0) mcg/mL COVID-19 (GARY) Negative (Negative) COVID-19 Clin Com See Note 11/03/21 Range/Units 11:29 WBC (4.8-10.8) X10*3/uL RBC (4.60-5.80) X10*6/uL Hgb (14.0-18.0) g/dl Hct (42.0-52.0) % MCV (80.0-98.0) fL MCH (27.0-33.0) pg MCHC (31.0-36.0) g/dl RDW (11.0-16.0) % Plt Count (160-400) X10*3/uL MPV (9.4-12.4) fL Immature Gran % (Auto) (0.0-0.4) % Neut % (Auto) (45-73) % Lymph % (Auto) (20-40) % [place] % (Auto) (2-11) % Eos % (Auto) (0-4) % Baso % (Auto) (0-2) % Lymph # (Auto) (1.2-4.9) X10*3/uL [place] # (Auto) (0.1-1.2) X10*3/uL Eos # (Auto) (0.0-0.4) X10*3/uL Baso # (Auto) (0.0-0.2) X10*3/uL Abs Immat Gran (auto) (0.00-0.03) X10*3/uL Absolute Neuts (auto) (2.0-8.3) x10*3/uL Absolute Nucleated RBC (0.0-0.012) X10*3/uL Nucleated RBC % (auto) (0.0-0.2) /100WBC Sodium (135-145) mmol/L Potassium (3.3-5.1) mmol/L Chloride (96-108) mmol/L Carbon Dioxide (22-29) mmol/L Anion Gap (12-20) BUN (9-16) mg/dL Creatinine (0.5-1.4) mg/dL Estim Creat Clear Calc Estimated GFR Random Glucose (60-115) mg/dL Calcium (8.4-10.2) mg/dL Total Bilirubin (0.0-1.0) mg/dL Direct Bilirubin (0.0-0.5) mg/dL AST (5-37) U/L ALT (0-40) U/L Alkaline Phosphatase (39-117) U/L Total Protein (6.5-8.0) g/dL Albumin (3.5-5.0) g/dL Valproic Acid 53.9 (50.0-100.0) mcg/mL COVID-19 (GARY) (Negative) COVID-19 Clin Com Discharge Plan Discharge Clinical Impression: Suicidal ideation Patient Disposition: Still a Patient Prescriptions: No Action omeprazole 20 mg tablet,delayed release (DR/EC) 20 mg PO DAILY 30 Days Qty: 30 0RF Rx Instructions: Take every AM 1/2 hour prior to meal fluoxetine [Prozac] 40 mg capsule 40 mg PO QAM 30 Days Qty: 30 0RF Linzess 145 mcg capsule 145 mcg PO QAM 30 Days Qty: 30 0RF psyllium husk (with sugar) 3.4 gram/12 gram powder 1 tbsp PO QAM Qty: 861 0RF Rx Instructions: in 8oz fluid every morning loratadine [Claritin] 10 mg tablet 10 mg PO DAILY 30 Days Qty: 30 0RF Rx Instructions: Every AM calcium carbonate 500 mg calcium (1,250 mg) tablet,chewable 500 mg PO Q4-6H PRN (Reason: dyspepsia) 30 Days Qty: 60 0RF ibuprofen 600 mg tablet 600 mg PO Q6H PRN (Reason: fever or pain) 30 Days Qty: 30 0RF melatonin 3 mg Tablet 6 mg PO BEDTIME 0RF quetiapine 300 mg Tablet 300 mg PO TID Qty: 90 0RF olanzapine 5 mg Tablet 5 mg PO QID PRN (Reason: Agitation) Qty: 90 0RF olanzapine 10 mg Tablet 10 mg PO BID Qty: 60 0RF divalproex 500 mg Tablet,Delayed Release (Dr/Ec) 1,000 mg PO DAILY Qty: 30 0RF divalproex 500 mg Tablet,Delayed Release (Dr/Ec) 500 mg PO BEDTIME Qty: 30 0RF propranolol 20 mg Tablet 20 mg PO TID Qty: 90 0RF Protocol: Hold for SBP/HR < HOLD for SBP < : 90 HOLD for HR < : 60
[2021-11-03 10:38] VITALS: BP 108/67; BP 121/78; PULSE 80; PULSE 85; RESP 18; TEMP 36.7; O2SAT 96; O2SAT 97; BMI 26.6
--- NOTE | 2021-11-03 11:30 | PC.NURSE ---
SMART SHEET done by this rn.
--- NOTE | 2021-11-03 11:33 | PC.NURSE ---
pt sent to pod bed # 6. pt aware of plan of care.
[2021-11-03 11:35] LABS: MANUAL DIFF FLAG NO
[2021-11-03 11:37] LABS: Basophils Percent Auto 0.5 % (0-2); Eosinophils Absolute Auto 0.2 X10*3/uL (0.0-0.4); Eosinophils Percent Auto 2.5 % (0-4); Hematocrit 37.4 % (42.0-52.0); Hemoglobin 12.7 g/dl (14.0-18.0); Imm Gran Abs Auto 0.08 X10*3/uL (0.00-0.03); Imm Gran Pct Auto 1.2 % (0.0-0.4); Lymphocytes Percent Auto 30.5 % (20-40); Mean Corpuscular Hemoglobin 32.7 pg (27.0-33.0); Mean Corpuscular Volume 96.4 fL (80.0-98.0); Mean Platelet Volume 8.8 fL (9.4-12.4); Monocytes Absolute Auto 0.7 X10*3/uL (0.1-1.2); Monocytes Percent Auto 10.6 % (2-11); Neutrophils Absolute Auto 3.6 x10*3/uL (2.0-8.3); Neutrophils Percent Auto 54.7 % (45-73); Platelet Count 191 X10*3/uL (160-400); Red Blood Count 3.88 X10*6/uL (4.60-5.80); Red Cell Distribution Width 11.9 % (11.0-16.0); White Blood Count 6.5 X10*3/uL (4.8-10.8)
[2021-11-03 11:51] LABS: COVID-19 Test Negative (Negative); IDNOW Serial# 16C4AD1C
[2021-11-03 12:03] LABS: Valproate 53.9 mcg/mL (50.0-100.0)
[2021-11-03 12:07] LABS: Anion Gap 13 (12-20); Blood Urea Nitrogen 9 mg/dL (9-16); Carbon Dioxide 25 mmol/L (22-29); Chloride 104 mmol/L (96-108); Creatinine Clr Calc Pharmacy 117.4; Estimated Glomerular Filt Rate > 60; Glucose Random 97 mg/dL (60-115); Potassium 4.4 mmol/L (3.3-5.1); Sodium 138 mmol/L (135-145)
[2021-11-03 12:08] LABS: Alanine Aminotransferase 11 U/L (0-40); Albumin Level 3.8 g/dL (3.5-5.0); Alkaline Phosphatase 110 U/L (39-117); Aspartate Amino Transferase 12 U/L (5-37); Bilirubin Direct 0.2 mg/dL (0.0-0.5); Bilirubin Total 0.4 mg/dL (0.0-1.0); Calcium 9.1 mg/dL (8.4-10.2); Total Protein 7.2 g/dL (6.5-8.0)
--- NOTE | 2021-11-03 14:26 | PHA.MEDREC ---
Pharmacy Consult ? Medication Reconciliation Pharmacy has completed the medication reconciliation.
[2021-11-03 14:28] VITALS: RESP 13
[2021-11-03 18:39] LABS: Appearance Urine CLEAR; Color Urine YELLOW; Glucose Urine UA NEG (NEG); Leukocyte Esterase Urine NEG (NEG); Nitrite Urine NEG (NEG); Specific Gravity - Urine 1.025 (1.005-1.025); Urine Blood NEG (NEG); Urine Ketones NEG (NEG); Urine Protein NEG (NEG-TRACE)
[2021-11-03 18:45] LABS: RBC Urine 0 /HPF (0); WBC Urine 0 /HPF (0-4)
[2021-11-03 18:59] LABS: Amphetamine Screen Urine Not Detected (Not Detect); Barbiturates, Urine Not Detected (Not Detect); Benzodiazepines Screen Urine Not Detected (Not Detect); Cannabinoid Screen Urine Not Detected (Not Detect); Cocaine Screen Urine Not Detected (Not Detect); Fentanyl, urine Not Detected (Not Detect); Opiate Screen Urine Not Detected (Not Detect); Phencyclidine Screen Urine Not Detected (Not Detect)
--- NOTE | 2021-11-04 | ECG_ITS ---
Test Reason : CP Blood Pressure : / mmHG Vent. Rate : 072 BPM Atrial Rate : 072 BPM P-R Int : 146 ms QRS Dur : 096 ms QT Int : 404 ms P-R-T Axes : 012 033 020 degrees QTc Int : 442 ms Normal sinus rhythm Normal ECG When compared with ECG of 02-JUL-2021 13:58, No significant change was found Referred By: Jody Sterling Electronically Signed By:ONI ALTMAN MD
[2021-11-04 06:25] VITALS: BP 131/70; PULSE 60; RESP 16; TEMP 36.7; O2SAT 96
--- NOTE | 2021-11-04 06:33 | PC.NURSE ---
Patient slept through the night, no distress observed/reported, medication reconciliation completed/MAR updated, patient was assessed by N, disposition section 12 inpatient bed search, VSS, contracted for the safety, behavior non concerning and appropriate, will continue to monitor.
--- NOTE | 2021-11-04 07:11 | PC.NURSE ---
patient appears to remain asleep at present respirations are even and unlabored patient appears in no distress
[2021-11-04 07:38] VITALS: BP 128/84; PULSE 86; TEMP 36; O2SAT 97
[2021-11-04] MEDS: QUEtiapine Fumarate 300 MG TABLET PO ×3 (08:00→20:50)
[2021-11-04] MEDS: Loratadine 10 MG TABLET PO (08:00)
[2021-11-04] MEDS: Divalproex Sodium 500 MG TABLET.DR 1000 MG PO (08:00)
[2021-11-04] MEDS: OLANZapine 10 MG TABLET PO ×2 (08:01→20:50)
[2021-11-04] MEDS: FLUoxetine HCl 20 MG CAPSULE 40 MG PO (08:01)
[2021-11-04] MEDS: Propranolol HCL 20 MG TABLET PO ×3 (08:01→20:50)
[2021-11-04] MEDS: Omeprazole 20 MG CAPSULE.DR PO (08:01)
--- NOTE | 2021-11-04 14:09 | MHC.HEMONC ---
Pt seen this date for individual tx session. Pt presents bright and alert with cheerful affect engaging in puzzle activity seated in POD milieu with a peer. However when asked how he was feeling today pt states I don't feel so good . Pt continues to demonstrate poor insight with regard to review of graded coping skills as noted by poor recall/carryover with technique as well as indication, secondary to developmental delay, distractibility, and decreased processing. Pt provided with coloring pages, word finds, and sensory item with focus on decreasing symptoms of anxiety/depression.
[2021-11-04 20:31] VITALS: BP 133/77; PULSE 78; RESP 20; TEMP 36.4; O2SAT 95
[2021-11-04] MEDS: Melatonin 3 MG TABLET 6 MG PO (20:50)
[2021-11-04] MEDS: Divalproex Sodium 500 MG TABLET.DR PO (20:50)
[2021-11-05 05:48] VITALS: BP 111/72; PULSE 73; RESP 16; TEMP 36.4; O2SAT 96
--- NOTE | 2021-11-05 06:50 | PC.NURSE ---
Patient slept through the night, no distress observed/reported, medication compliant, patient was assessed by [facility], disposition section 12 inpatient bed search, VSS, contracted for the safety, behavior non concerning and appropriate, will continue to monitor.
--- NOTE | 2021-11-05 07:42 | PC.NURSE ---
patient appears to remain asleep at present, respirations are even and unlabored patient appears in no distress
[2021-11-05] MEDS: Omeprazole 20 MG CAPSULE.DR PO (10:07)
[2021-11-05] MEDS: Propranolol HCL 20 MG TABLET PO ×2 (10:08→15:27)
[2021-11-05] MEDS: QUEtiapine Fumarate 300 MG TABLET PO ×2 (10:08→15:27)
[2021-11-05] MEDS: FLUoxetine HCl 20 MG CAPSULE 40 MG PO (10:08)
[2021-11-05] MEDS: Loratadine 10 MG TABLET PO (10:08)
[2021-11-05] MEDS: Divalproex Sodium 500 MG TABLET.DR 1000 MG PO (10:08)
[2021-11-05] MEDS: OLANZapine 10 MG TABLET PO (10:08)
--- NOTE | 2021-11-05 14:10 | PC.NURSE ---
Pt seen this date for individual OT tx session with focus on alternate strategies to better manage anger/outbursts as pt reports I'm here because of my temper . Pt is able to identify one alternative to lashing out and states I could talk to the counselors first . Pt reports feeling Ok at this time and is receptive to various pre-printed activities as well as sensory item provided. Pt presents calm with flat affect.
== END 2021-11-05 17:27 | disposition other institution (70) ==
PROVIDERS: Emergency Provider Emergency Medicine
DX: F33.1 Major depressive disorder, recurrent, moderate (principal); R45.851 Suicidal ideations; R07.89 Other chest pain; Z20.822 Contact with and (suspected) exposure to COVID-19; Z79.899 Other long term (current) drug therapy; Z87.891 Personal history of nicotine dependence
CPT/HCPCS: 36415; 80048; 80076; 80164; 80307; 81001; 85025; 87635; 93005; 99284; 99285

== ENCOUNTER 2021-11-09 20:19 | Emergency (ER) | payer MEDICAID, SELFPAY ==
[2021-11-09 21:06] VITALS: BP 131/80; PULSE 87; RESP 18; O2SAT 96; BMI 26.6
[2021-11-09 22:10] LABS: Amphetamine Screen Urine Not Detected (Not Detect); Barbiturates, Urine Not Detected (Not Detect); Benzodiazepines Screen Urine Not Detected (Not Detect); Cannabinoid Screen Urine Not Detected (Not Detect); Cocaine Screen Urine Not Detected (Not Detect); Fentanyl, urine Not Detected (Not Detect); Opiate Screen Urine Not Detected (Not Detect); Phencyclidine Screen Urine Not Detected (Not Detect)
[2021-11-09 22:24] LABS: COVID-19 Test Negative (Negative)
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
--- NOTE | 2021-11-10 06:11 | PC.NURSE ---
Patient slept through the night, no distress observed/reported, patient was agitated and non compliance with electronic data interchange specialist process at the time of arrival however deescalated eventually, med rec completed/ pending provider's approval, [facility] referral completed/confirmed/pending evaluation, behavior non concerning at this time but unpredictable due to TBI, VSS, will continue to monitor.
--- NOTE | 2021-11-10 07:52 | PC.NURSE ---
patient appears to remain asleep at present respirations are even and unlabored patient appears in no dfistress
[2021-11-10] MEDS: Loratadine 10 MG TABLET PO (11:36)
[2021-11-10] MEDS: FLUoxetine HCl 20 MG CAPSULE 40 MG PO (11:37)
[2021-11-10] MEDS: OLANZapine 10 MG TABLET PO (11:37)
[2021-11-10] MEDS: Propranolol HCL 20 MG TABLET PO (11:37)
[2021-11-10] MEDS: QUEtiapine Fumarate 300 MG TABLET PO (11:38)
[2021-11-10] MEDS: Omeprazole 20 MG CAPSULE.DR PO (11:38)
[2021-11-10] MEDS: Divalproex Sodium 500 MG TABLET.DR 1000 MG PO (11:38)
--- NOTE | 2021-11-10 12:06 | MHC.CARE ---
Left message with [facility] clinician regarding discharge home.
[2021-11-10 12:16] VITALS: BP 112/77; PULSE 71; RESP 16; TEMP 36.1; O2SAT 97
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
--- NOTE | 2021-11-10 14:17 | PC.NURSE ---
Pt seen this date for individual OT tx session. Continued pt education provided with regard to coping strategies and recognizing triggers prior to behavioral outbursts leading to frequent ED admissions. Pt is able to appropriately recall 2/4 strategies discussed following education. Pt provided with activities to engage in prior to discharge this day he is receptive to coloring pages, word finds, and sensory item.
== END 2021-11-10 13:07 | disposition other institution (70) ==
PROVIDERS: Emergency Provider Emergency Medicine Emergency Medical Services
DX: F41.9 Anxiety disorder, unspecified (principal); F39 Unspecified mood [affective] disorder; F63.81 Intermittent explosive disorder; F79 Unspecified intellectual disabilities; Z79.899 Other long term (current) drug therapy; Z87.820 Personal history of traumatic brain injury; Z20.822 Contact with and (suspected) exposure to COVID-19
CPT/HCPCS: 80307; 87635; 99284; 99285

== ENCOUNTER 2021-11-27 19:44 | Emergency (ER) | payer MEDICAID, SELFPAY ==
[2021-11-27 19:54] VITALS: BP 123/86; PULSE 86; RESP 16; TEMP 36.7; O2SAT 96; BMI 28.2
--- NOTE | 2021-11-27 20:32 | ED.PSYCH ---
HPI - Psych General Chief Complaint: Psychiatric Symptoms Stated Complaint: Crisis Time Seen by Provider: 11/27/21 20:32 History of Present Illness HPI Narrative: 31 years old presents today with having argument at the half-way. Did not take his medication sent in for further evaluation patient denies any suicidal homicidal ideation has no complaints. Related Data Home Medications Medication Instructions Recorded Confirmed melatonin 3 mg tablet 6 mg PO BEDTIME 10/14/21 11/09/21 Previous Rx's Medication Instructions Recorded calcium carbonate 500 mg calcium 500 mg PO Q4-6H PRN dyspepsia 30 10/03/21 (1,250 mg) chewable tablet days #60 tabs fluoxetine 40 mg capsule (Prozac) 40 mg PO QAM 30 days #30 caps 10/03/21 ibuprofen 600 mg tablet 600 mg PO Q6H PRN fever or pain 30 10/03/21 days #30 tabs linaclotide 145 mcg capsule 145 mcg PO QAM 30 days #30 caps 10/03/21 (Linzess) loratadine 10 mg tablet (Claritin) 10 mg PO DAILY 30 days #30 tabs 10/03/21 omeprazole 20 mg tablet,delayed 20 mg PO DAILY 30 days #30 tabs 10/03/21 release psyllium husk (with sugar) 3.4 1 tbsp PO QAM #861 grams 10/03/21 gram/12 gram oral powder divalproex 500 mg tablet,delayed 1,000 mg PO DAILY #30 tabs 10/17/21 release divalproex 500 mg tablet,delayed 500 mg PO BEDTIME #30 tabs 10/17/21 release olanzapine 10 mg tablet 10 mg PO BID #60 tabs 10/17/21 olanzapine 5 mg tablet 5 mg PO QID PRN Agitation #90 tabs 10/17/21 propranolol 20 mg tablet 20 mg PO TID #90 tabs 10/17/21 quetiapine 300 mg tablet 300 mg PO TID #90 tabs 10/17/21 Allergies Allergy/AdvReac Type Severity Reaction Status Date / Time risperidone [From RISPERDAL] Allergy Unknown MUCLE Verified 12/04/20 19:14 TIGHTNESS Review of Systems Review of Systems: No fever no chills no chest pain or shortness breath no systemic complaints Yes all other systems are reviewed and are negative PMFSH Past Medical History Attestation statement: The following information was validated with the patient. Medical History Constipation Mental health disorder Social History Social History Household Members: Other Household Members Other:: lives in half-way with 3 other patients Housing: House Do you presently have visiting nurse or other home services: Yes ([facility]-way) Alcohol intake: former Patient Tobacco Use Status: Former Tobacco user Quit Date: 06/2020 Tobacco use type: Cigarette Cigarette Packs Per Day: 1 Cigarettes Per Day: 20.0 Years Smoked: 12 Second Hand Smoke Exposure: No Advance Directives: No Advance Directives Information Provided: Yes service: No Sexual orientation: Did not discuss. Physical Exam Vital Signs: Vital Signs: Last Vital Signs Temp 98.1 F 11/27/21 19:54 Pulse 86 11/27/21 19:54 Resp 16 11/27/21 19:54 BP 123/86 11/27/21 19:54 Pulse Ox 96 11/27/21 19:54 O2 Del Method 11/27/21 19:54 BMI result Body Mass Index 28.2 Appearance: Alert. Oriented X3. No acute distress. Eyes: Pupils equal, round and reactive to light. ENT: Pharynx normal. Neck: Normal inspection. Neck supple. No lymph nodes noted. No crepitus CVS: Normal heart rate and rhythm. Pulses normal. Normal S1 and S2 Respiratory: No respiratory distress. Breath sounds normal. No Wheezing. No rales Abdomen: Soft and nontender. No rigidity. No distention. good BS x4 Skin: Skin warm and dry. Normal skin color. Normal skin turgor. Extremities: No lower extremity edema. Neurovascular intact to all extremities. No Lacerations. No Rash Neuro: Oriented X 3. No motor deficit. No sensory deficit. Moving all extermities. No slurred speech. Cranial nerves grossly intact MDM - Psych MDM Narrative Medical decision making narrative: will get care team to evaluate patient. Lab Data Labs: Lab Results 11/27/21 11/27/21 11/27/21 Range/Units 20:51 20:57 20:57 Urine Opiates Screen Not Detected (Not Detect) Urine Fentanyl Screen Not Detected (Not Detect) Ur Barbiturates Screen Not Detected (Not Detect) Valproic Acid 66.0 (50.0-100.0) mcg/mL Ur Phencyclidine Scrn Not Detected (Not Detect) Ur Amphetamines Screen Not Detected (Not Detect) U Benzodiazepines Scrn Not Detected (Not Detect) Urine Cocaine Screen Not Detected (Not Detect) U Marijuana (THC) Screen Not Detected (Not Detect) COVID-19 (GARY) Negative (Negative) COVID-19 Clin Com See Note Discharge Plan Discharge Clinical Impression: Mood disorder Patient Disposition: Still a Patient Prescriptions: No Action omeprazole 20 mg tablet,delayed release (DR/EC) 20 mg PO DAILY 30 Days Qty: 30 0RF Rx Instructions: Take every AM 1/2 hour prior to meal fluoxetine [Prozac] 40 mg capsule 40 mg PO QAM 30 Days Qty: 30 0RF Linzess 145 mcg capsule 145 mcg PO QAM 30 Days Qty: 30 0RF psyllium husk (with sugar) 3.4 gram/12 gram powder 1 tbsp PO QAM Qty: 861 0RF Rx Instructions: in 8oz fluid every morning loratadine [Claritin] 10 mg tablet 10 mg PO DAILY 30 Days Qty: 30 0RF Rx Instructions: Every AM calcium carbonate 500 mg calcium (1,250 mg) tablet,chewable 500 mg PO Q4-6H PRN (Reason: dyspepsia) 30 Days Qty: 60 0RF ibuprofen 600 mg tablet 600 mg PO Q6H PRN (Reason: fever or pain) 30 Days Qty: 30 0RF melatonin 3 mg Tablet 6 mg PO BEDTIME quetiapine 300 mg Tablet 300 mg PO TID Qty: 90 0RF olanzapine 5 mg Tablet 5 mg PO QID PRN (Reason: Agitation) Qty: 90 0RF olanzapine 10 mg Tablet 10 mg PO BID Qty: 60 0RF divalproex 500 mg Tablet,Delayed Release (Dr/Ec) 1,000 mg PO DAILY Qty: 30 0RF divalproex 500 mg Tablet,Delayed Release (Dr/Ec) 500 mg PO BEDTIME Qty: 30 0RF propranolol 20 mg Tablet 20 mg PO TID Qty: 90 0RF Protocol: Hold for SBP/HR < HOLD for SBP < : 90 HOLD for HR < : 60
[2021-11-27 21:23] LABS: Amphetamine Screen Urine Not Detected (Not Detect); Barbiturates, Urine Not Detected (Not Detect); Benzodiazepines Screen Urine Not Detected (Not Detect); Cannabinoid Screen Urine Not Detected (Not Detect); Cocaine Screen Urine Not Detected (Not Detect); Fentanyl, urine Not Detected (Not Detect); Opiate Screen Urine Not Detected (Not Detect); Phencyclidine Screen Urine Not Detected (Not Detect)
[2021-11-27 21:24] LABS: COVID-19 Test Negative (Negative); IDNOW Serial# 08D9AD1C
--- NOTE | 2021-11-28 06:38 | PC.NURSE ---
Patient slept through the night, no distress observed/reported, med rec completed/confirmed/pending ETA, BHN referral completed/confirmed/pending ETA, behavior non concerning, will continue to monitor.
--- NOTE | 2021-11-28 08:15 | PC.NURSE ---
PT SLEEPING. AWAITING N JUAN.
[2021-11-28] MEDS: Omeprazole 20 MG CAPSULE.DR PO (09:34)
[2021-11-28] MEDS: Loratadine 10 MG TABLET PO (09:34)
[2021-11-28] MEDS: OLANZapine 10 MG TABLET PO (09:34)
[2021-11-28] MEDS: Propranolol HCL 20 MG TABLET PO (09:34)
[2021-11-28] MEDS: QUEtiapine Fumarate 300 MG TABLET PO (09:34)
[2021-11-28] MEDS: FLUoxetine HCl 20 MG CAPSULE 40 MG PO (09:34)
[2021-11-28] MEDS: Divalproex Sodium 500 MG TABLET.DR 1000 MG PO (09:35)
[2021-11-28 11:48] VITALS: BP 106/64; PULSE 83; RESP 16; TEMP 36.1; O2SAT 94
== END 2021-11-28 12:53 | disposition home or self-care (01) ==
PROVIDERS: Emergency Provider Emergency Medicine Emergency Medical Services
DX: F39 Unspecified mood [affective] disorder (principal); Z20.822 Contact with and (suspected) exposure to COVID-19
CPT/HCPCS: 36415; 80164; 80307; 87635; 99284

== ENCOUNTER 2021-11-29 19:53 | Emergency (ER) | payer MEDICAID, SELFPAY ==
[2021-11-29 19:55] VITALS: BP 128/78; PULSE 92; RESP 17; TEMP 36.6; O2SAT 96; BMI 27.3
--- NOTE | 2021-11-29 20:21 | ED.PSYCH ---
HPI - Psych General Chief Complaint: Psychiatric Symptoms Stated Complaint: CRISIS Source: patient and EMS Mode of arrival: ambulatory Limitations: no limitations History of Present Illness HPI Narrative: 31-year-old male presents via EMS from his nursing home after aggressive behavior. Was discharged from [facility] earlier today from psychiatric unit. Patient states that he is really agitated and does not feel safe. MD complaint: anxiety Onset (ago): year(s) Duration: constant History of same: Yes Relieving factors: none Exacerbating factors: none Associated psychiatric symptoms: depression, racing thoughts and delusions Associated symptoms: denies other symptoms Treatments prior to arrival: none Related Data Home Medications Medication Instructions Recorded Confirmed melatonin 3 mg tablet 6 mg PO BEDTIME 10/14/21 11/29/21 Previous Rx's Medication Instructions Recorded calcium carbonate 500 mg calcium 500 mg PO Q4-6H PRN dyspepsia 30 10/03/21 (1,250 mg) chewable tablet days #60 tabs fluoxetine 40 mg capsule (Prozac) 40 mg PO QAM 30 days #30 caps 10/03/21 ibuprofen 600 mg tablet 600 mg PO Q6H PRN fever or pain 30 10/03/21 days #30 tabs linaclotide 145 mcg capsule 145 mcg PO QAM 30 days #30 caps 10/03/21 (Linzess) loratadine 10 mg tablet (Claritin) 10 mg PO DAILY 30 days #30 tabs 10/03/21 omeprazole 20 mg tablet,delayed 20 mg PO DAILY 30 days #30 tabs 10/03/21 release psyllium husk (with sugar) 3.4 1 tbsp PO QAM #861 grams 10/03/21 gram/12 gram oral powder divalproex 500 mg tablet,delayed 1,000 mg PO DAILY #30 tabs 10/17/21 release divalproex 500 mg tablet,delayed 500 mg PO BEDTIME #30 tabs 10/17/21 release olanzapine 10 mg tablet 10 mg PO BID #60 tabs 10/17/21 olanzapine 5 mg tablet 5 mg PO QID PRN Agitation #90 tabs 10/17/21 propranolol 20 mg tablet 20 mg PO TID #90 tabs 10/17/21 quetiapine 300 mg tablet 300 mg PO TID #90 tabs 10/17/21 Allergies Allergy/AdvReac Type Severity Reaction Status Date / Time risperidone [From RISPERDAL] Allergy Unknown MUCLE Verified 12/04/20 19:14 TIGHTNESS Review of Systems Review of Systems: Constitutional: No Fever, No Chills ENT/Mouth: No Ear Pain, No Nasal Congestion, No sore throat Eyes: No Eye Pain, No Swelling, No Redness Cardiovascular: No Chest Pain, No SOB Respiratory: No Cough, No Sputum, No Dyspnea Gastrointestinal: No Nausea, No Vomiting, No Diarrhea, No Hematochezia, No Melena Genitourinary: No Dysuria, No Urinary Frequency, No Hematuria Musculoskeletal: No Myalgias Skin: No Skin Lesions, No rash Neuro: No Weakness, No Numbness, No Paresthesias, No Dizziness, No Headache Psych: positive Anxiety, positive Depression, no SI/HI Heme/Lymph: No Lymphadenopathy Endocrine: No Polyuria, No Polydipsia Yes all other systems are reviewed and are negative [facility] Past Medical History Attestation statement: The following information was validated with the patient. Source: old records reviewed Medical History Constipation Mental health disorder Social History Social History Household Members: Other Household Members Other:: lives in nursing home with 3 other patients Housing: House Do you presently have visiting nurse or other home services: Yes ([facility] nursing [facility]) Alcohol intake: former Patient Tobacco Use Status: Former Tobacco user Quit Date: 06/2020 Tobacco use type: Cigarette Cigarette Packs Per Day: 1 Cigarettes Per Day: 20.0 Years Smoked: 12 Second Hand Smoke Exposure: No Advance Directives: No service: No Sexual orientation: Did not discuss. Physical Exam Vital Signs: Vital Signs: Last Vital Signs Temp 97.3 F 11/29/21 22:30 Pulse 83 11/29/21 22:30 Resp 15 11/29/21 23:00 BP 127/60 11/29/21 22:30 Pulse Ox 93 11/29/21 22:30 O2 Del Method 11/29/21 22:30 BMI result Body Mass Index 27.3 Appearance: Alert. Oriented X3. Appears com. Eyes: Pupils equal, round and reactive to light. ENT: Pharynx normal. Neck: Normal inspection. Neck supple. CVS: Normal heart rate and rhythm. Pulses normal. Respiratory: No respiratory distress. Breath sounds normal. Abdomen: Soft and nontender. Skin: Skin warm and dry. Normal skin color. Normal skin turgor. Extremities: No lower extremity edema. Moves all extremities against resistance. Gait well-balanced well coordinated. Neuro: No motor deficit. No sensory deficit. Cranial nerves 2-12 intact. Course Course Course Narrative: 31-year-old male presents via EMS for evaluation for aggressive behavior at his nursing home. This patient is well-known to this facility, known to have outbursts and violent behavior. Was discharge from [facility] earlier today. At the time of my evaluation patient is eating pudding, but not answering any questions. He did answer questions to the RN. Does not report any medical concerns. Will order labs, and consult. 22:00, patient threatening violence, slamming doors, throwing objects, raising his fists, screaming derogatory racist words, spitting at staff, unable to redirect. Order for Ativan 2, Haldol 5, Benadryl 50, and physical restraints. 2300 p.m. restraints have been removed, even unlabored respirations, repositioning self as needed. Labs are unremarkable. Physician observation at this time. Crisis consult pending. MDM - Psych Differential Diagnosis Differential diagnosis: Likely acute psychosis, depression, acute anxiety and mood disorder Medical Records Attestation: I reviewed the patient's medical records. Lab Data Attestation: I reviewed the patient's lab results. Result diagrams: 11/29/21 20:47 11/29/21 20:47 Labs: Lab Results 11/29/21 11/29/21 11/29/21 Range/Units 20:01 20:13 20:13 WBC (4.8-10.8) X10*3/uL RBC (4.60-5.80) X10*6/uL Hgb (14.0-18.0) g/dl Hct (42.0-52.0) % MCV (80.0-98.0) fL MCH (27.0-33.0) pg MCHC (31.0-36.0) g/dl RDW (11.0-16.0) % Plt Count (160-400) X10*3/uL MPV (9.4-12.4) fL Immature Gran % (Auto) (0.0-0.4) % Neut % (Auto) (45-73) % Lymph % (Auto) (20-40) % Ponce % (Auto) (2-11) % Eos % (Auto) (0-4) % Baso % (Auto) (0-2) % Lymph # (Auto) (1.2-4.9) X10*3/uL Ponce # (Auto) (0.1-1.2) X10*3/uL Eos # (Auto) (0.0-0.4) X10*3/uL Baso # (Auto) (0.0-0.2) X10*3/uL Abs Immat Gran (auto) (0.00-0.03) X10*3/uL Absolute Neuts (auto) (2.0-8.3) x10*3/uL Absolute Nucleated RBC (0.0-0.012) X10*3/uL Nucleated RBC % (auto) (0.0-0.2) /100WBC Sodium (135-145) mmol/L Potassium (3.3-5.1) mmol/L Chloride (96-108) mmol/L Carbon Dioxide (22-29) mmol/L Anion Gap (12-20) BUN (9-16) mg/dL Creatinine (0.5-1.4) mg/dL Estim Creat Clear Calc Estimated GFR Random Glucose (60-115) mg/dL Calcium (8.4-10.2) mg/dL Urine Color YELLOW Urine Appearance CLEAR Urine pH 6.0 (5.0-8.0) Ur Specific Hardin 1.015 (1.005-1.025) Urine Protein NEG (NEG-TRACE) MG/DL Urine Glucose (UA) NEG (NEG) MG/DL Urine Ketones NEG (NEG) MG/DL Urine Blood NEG (NEG) Urine Nitrite NEG (NEG) Ur Leukocyte Esterase NEG (NEG) Urine Opiates Screen Not Detected (Not Detect) Urine Fentanyl Screen Not Detected (Not Detect) Ur Barbiturates Screen Not Detected (Not Detect) Valproic Acid (50.0-100.0) mcg/mL Ur Phencyclidine Scrn Not Detected (Not Detect) Ur Amphetamines Screen Not Detected (Not Detect) U Benzodiazepines Scrn Not Detected (Not Detect) Urine Cocaine Screen Not Detected (Not Detect) U Marijuana (THC) Screen Not Detected (Not Detect) COVID-19 (GARY) Negative (Negative) COVID-19 Clin Com See Note 11/29/21 11/29/21 11/29/21 Range/Units 20:47 20:47 20:47 WBC 5.8 (4.8-10.8) X10*3/uL RBC 4.07 L (4.60-5.80) X10*6/uL Hgb 13.1 L (14.0-18.0) g/dl Hct 37.8 L (42.0-52.0) % MCV 92.9 (80.0-98.0) fL MCH 32.2 (27.0-33.0) pg MCHC 34.7 (31.0-36.0) g/dl RDW 11.6 (11.0-16.0) % Plt Count 185 (160-400) X10*3/uL MPV 8.8 L (9.4-12.4) fL Immature Gran % (Auto) 0.7 H (0.0-0.4) % Neut % (Auto) 54.3 (45-73) % Lymph % (Auto) 32.1 (20-40) % Ponce % (Auto) 8.2 (2-11) % Eos % (Auto) 4.0 (0-4) % Baso % (Auto) 0.7 (0-2) % Lymph # (Auto) 1.9 (1.2-4.9) X10*3/uL Ponce # (Auto) 0.5 (0.1-1.2) X10*3/uL Eos # (Auto) 0.2 (0.0-0.4) X10*3/uL Baso # (Auto) 0.0 (0.0-0.2) X10*3/uL Abs Immat Gran (auto) 0.04 H (0.00-0.03) X10*3/uL Absolute Neuts (auto) 3.2 (2.0-8.3) x10*3/uL Absolute Nucleated RBC 0.000 (0.0-0.012) X10*3/uL Nucleated RBC % (auto) 0.0 (0.0-0.2) /100WBC Sodium 137 (135-145) mmol/L Potassium 3.8 (3.3-5.1) mmol/L Chloride 102 (96-108) mmol/L Carbon Dioxide 24 (22-29) mmol/L Anion Gap 15 (12-20) BUN 17 H D (9-16) mg/dL Creatinine 1.15 (0.5-1.4) mg/dL Estim Creat Clear Calc 94.8 Estimated GFR > 60 Random Glucose 131 H D (60-115) mg/dL Calcium 8.9 (8.4-10.2) mg/dL Urine Color Urine Appearance Urine pH (5.0-8.0) Ur Specific Hardin (1.005-1.025) Urine Protein (NEG-TRACE) MG/DL Urine Glucose (UA) (NEG) MG/DL Urine Ketones (NEG) MG/DL Urine Blood (NEG) Urine Nitrite (NEG) Ur Leukocyte Esterase (NEG) Urine Opiates Screen (Not Detect) Urine Fentanyl Screen (Not Detect) Ur Barbiturates Screen (Not Detect) Valproic Acid 44.6 L (50.0-100.0) mcg/mL Ur Phencyclidine Scrn (Not Detect) Ur Amphetamines Screen (Not Detect) U Benzodiazepines Scrn (Not Detect) Urine Cocaine Screen (Not Detect) U Marijuana (THC) Screen (Not Detect) COVID-19 (GARY) (Negative) COVID-19 Clin Com Discharge Plan Discharge Clinical Impression: Intermittent explosive disorder, Intellectual disability, Traumatic brain injury, Acute psychosis Patient Disposition: Still a Patient Prescriptions: No Action omeprazole 20 mg tablet,delayed release (DR/EC) 20 mg PO DAILY 30 Days Qty: 30 0RF Rx Instructions: Take every AM 1/2 hour prior to meal fluoxetine [Prozac] 40 mg capsule 40 mg PO QAM 30 Days Qty: 30 0RF Linzess 145 mcg capsule 145 mcg PO QAM 30 Days Qty: 30 0RF psyllium husk (with sugar) 3.4 gram/12 gram powder 1 tbsp PO QAM Qty: 861 0RF Rx Instructions: in 8oz fluid every morning loratadine [Claritin] 10 mg tablet 10 mg PO DAILY 30 Days Qty: 30 0RF Rx Instructions: Every AM calcium carbonate 500 mg calcium (1,250 mg) tablet,chewable 500 mg PO Q4-6H PRN (Reason: dyspepsia) 30 Days Qty: 60 0RF ibuprofen 600 mg tablet 600 mg PO Q6H PRN (Reason: fever or pain) 30 Days Qty: 30 0RF melatonin 3 mg Tablet 6 mg PO BEDTIME quetiapine 300 mg Tablet 300 mg PO TID Qty: 90 0RF olanzapine 5 mg Tablet 5 mg PO QID PRN (Reason: Agitation) Qty: 90 0RF olanzapine 10 mg Tablet 10 mg PO BID Qty: 60 0RF divalproex 500 mg Tablet,Delayed Release (Dr/Ec) 1,000 mg PO DAILY Qty: 30 0RF divalproex 500 mg Tablet,Delayed Release (Dr/Ec) 500 mg PO BEDTIME Qty: 30 0RF propranolol 20 mg Tablet 20 mg PO TID Qty: 90 0RF Protocol: Hold for SBP/HR < HOLD for SBP < : 90 HOLD for HR < : 60
[2021-11-29 20:31] LABS: Appearance Urine CLEAR; Color Urine YELLOW; Glucose Urine UA NEG (NEG); Leukocyte Esterase Urine NEG (NEG); Nitrite Urine NEG (NEG); Specific Gravity - Urine 1.015 (1.005-1.025); Urine Blood NEG (NEG); Urine Ketones NEG (NEG); Urine Protein NEG (NEG-TRACE)
[2021-11-29 20:38] LABS: COVID-19 Test Negative (Negative)
[2021-11-29 20:53] LABS: MANUAL DIFF FLAG NO
[2021-11-29 20:54] LABS: Basophils Percent Auto 0.7 % (0-2); Eosinophils Absolute Auto 0.2 X10*3/uL (0.0-0.4); Hematocrit 37.8 % (42.0-52.0); Hemoglobin 13.1 g/dl (14.0-18.0); Imm Gran Abs Auto 0.04 X10*3/uL (0.00-0.03); Imm Gran Pct Auto 0.7 % (0.0-0.4); Lymphocytes Absolute Auto 1.9 X10*3/uL (1.2-4.9); Lymphocytes Percent Auto 32.1 % (20-40); Mean Corpuscular HGB Conc 34.7 g/dl (31.0-36.0); Mean Corpuscular Hemoglobin 32.2 pg (27.0-33.0); Mean Corpuscular Volume 92.9 fL (80.0-98.0); Mean Platelet Volume 8.8 fL (9.4-12.4); Monocytes Absolute Auto 0.5 X10*3/uL (0.1-1.2); Monocytes Percent Auto 8.2 % (2-11); Neutrophils Absolute Auto 3.2 x10*3/uL (2.0-8.3); Neutrophils Percent Auto 54.3 % (45-73); Platelet Count 185 X10*3/uL (160-400); Red Blood Count 4.07 X10*6/uL (4.60-5.80); Red Cell Distribution Width 11.6 % (11.0-16.0); White Blood Count 5.8 X10*3/uL (4.8-10.8)
[2021-11-29 20:56] LABS: Amphetamine Screen Urine Not Detected (Not Detect); Barbiturates, Urine Not Detected (Not Detect); Benzodiazepines Screen Urine Not Detected (Not Detect); Cannabinoid Screen Urine Not Detected (Not Detect); Cocaine Screen Urine Not Detected (Not Detect); Fentanyl, urine Not Detected (Not Detect); Opiate Screen Urine Not Detected (Not Detect); Phencyclidine Screen Urine Not Detected (Not Detect)
[2021-11-29] MEDS: Propranolol HCL 20 MG TABLET PO (20:56)
[2021-11-29] MEDS: Divalproex Sodium 500 MG TABLET.DR PO (20:56)
[2021-11-29] MEDS: QUEtiapine Fumarate 300 MG TABLET PO (20:56)
[2021-11-29] MEDS: FLUoxetine HCl 20 MG CAPSULE 40 MG PO (20:56)
[2021-11-29] MEDS: Melatonin 3 MG TABLET 6 MG PO (20:56)
[2021-11-29] MEDS: OLANZapine 10 MG TABLET PO (20:56)
[2021-11-29 21:14] LABS: Anion Gap 15 (12-20); Blood Urea Nitrogen 17 mg/dL (9-16); Calcium 8.9 mg/dL (8.4-10.2); Carbon Dioxide 24 mmol/L (22-29); Chloride 102 mmol/L (96-108); Creatinine Clr Calc Pharmacy 94.8; Estimated Glomerular Filt Rate > 60; Glucose Random 131 mg/dL (60-115); Potassium 3.8 mmol/L (3.3-5.1); Sodium 137 mmol/L (135-145)
[2021-11-29 21:18] LABS: Valproate 44.6 mcg/mL (50.0-100.0)
[2021-11-29 22:00] VITALS: RESP 19
[2021-11-29] MEDS: Haloperidol Lactate 5 MG/ML VIAL IM (22:00)
[2021-11-29] MEDS: diphenhydrAMINE HCL 50 MG/ML VIAL IM (22:00)
[2021-11-29] MEDS: LORazepam 2 MG/ML VIAL IM (22:00)
[2021-11-29 22:15] VITALS: RESP 17
--- NOTE | 2021-11-29 22:15 | PC.NURSE ---
Patient is psychotically agitated, making repeated suicidal statement if he doesn't get discharge tonight, attempted to deescalate but with no success, patient started making threat towards staff member, security called for support continue making threat, provider called patient even made threat to the provider, Ativan 2 mg IM, Haldol 5 mg Im, and Benadryl 50 mg IM ordered/administered at 2200, patient further got aggravated started spitting at staff member, physcial restarint ordered, currently on four point restraint, observed on 1:1 for safety, will continue to monitor.
[2021-11-29 22:30] VITALS: BP 127/60; PULSE 83; RESP 16; TEMP 36.3; O2SAT 93
[2021-11-29 22:45] VITALS: RESP 16
[2021-11-29 23:00] VITALS: RESP 15
--- NOTE | 2021-11-30 05:58 | PC.NURSE ---
Patient slept through the night, no distress observed/reported, BHN referral completed/confirmed/pending ETA, patient is currently decompensated behaviorally, medication compliant but requires redirection, responded well to the chemical restraint, behavior unpredictable d/t TBI, VSS, will continue to monitor.
[2021-11-30] MEDS: Omeprazole 20 MG CAPSULE.DR PO (06:18)
[2021-11-30] MEDS: FLUoxetine HCl 20 MG CAPSULE 40 MG PO (10:15)
[2021-11-30] MEDS: OLANZapine 10 MG TABLET PO ×2 (10:15→20:23)
[2021-11-30] MEDS: Propranolol HCL 20 MG TABLET PO ×2 (10:16→19:19)
[2021-11-30] MEDS: Divalproex Sodium 500 MG TABLET.DR 1000 MG PO (10:17)
[2021-11-30] MEDS: QUEtiapine Fumarate 300 MG TABLET PO ×3 (10:18→20:22)
[2021-11-30] MEDS: Loratadine 10 MG TABLET PO (10:18)
[2021-11-30] MEDS: OLANZapine 5 MG TABLET PO (19:18)
[2021-11-30 20:13] VITALS: BP 120/83; PULSE 84; RESP 20; TEMP 36.6; O2SAT 94
[2021-11-30] MEDS: Divalproex Sodium 500 MG TABLET.DR PO (20:23)
[2021-11-30] MEDS: Melatonin 3 MG TABLET 6 MG PO (20:23)
[2021-12-01 05:44] VITALS: RESP 16
--- NOTE | 2021-12-01 06:14 | PC.NURSE ---
Patient slept through the night, no distress observed/reported, medication compliant, patient was assessed b BHN, pending disposition, [facility] F/U in the morning, behavior appropriate and non concerning at this time, VSS, will continue to monitor.
[2021-12-01] MEDS: QUEtiapine Fumarate 300 MG TABLET PO ×2 (08:46→15:28)
[2021-12-01] MEDS: Divalproex Sodium 500 MG TABLET.DR 1000 MG PO (08:46)
[2021-12-01] MEDS: Loratadine 10 MG TABLET PO (08:47)
[2021-12-01] MEDS: Propranolol HCL 20 MG TABLET PO ×2 (08:47→15:28)
[2021-12-01] MEDS: FLUoxetine HCl 20 MG CAPSULE 40 MG PO (08:47)
[2021-12-01] MEDS: OLANZapine 10 MG TABLET PO (08:47)
--- NOTE | 2021-12-01 10:35 | PC.NURSE ---
Pt in common area working on a puzzle. Interacting with PCT appropriately. 0900 med just received from pharmacy
--- NOTE | 2021-12-01 10:56 | MHC.CARE ---
CARE Team spoke with Rona ([phone]) Pts [facility] clinician- and updated her that the CARE Team is recommending Pt is to be discharged back to his fdc and follow up with outpatient treatment team. Pt lives in a fdc with 1;1 staff. CARE Team will update [facility] crisis as Pt is a [facility] follow up pending collateral contact with fdc.
--- NOTE | 2021-12-01 14:22 | MHC.CARE ---
CARE Team placed follow up call to [facility] regarding ETA for picker.
[2021-12-01 15:30] VITALS: BP 126/86; PULSE 92; RESP 15; O2SAT 98
== END 2021-12-01 15:47 | disposition home or self-care (01) ==
PROVIDERS: Emergency Medicine; Emergency Provider Emergency Medicine Emergency Medical Services
DX: F33.1 Major depressive disorder, recurrent, moderate (principal); R41.0 Disorientation, unspecified; F79 Unspecified intellectual disabilities; F63.81 Intermittent explosive disorder; Z20.822 Contact with and (suspected) exposure to COVID-19; Z79.899 Other long term (current) drug therapy; Z87.891 Personal history of nicotine dependence; Z86.73 Personal history of transient ischemic attack (TIA), and cerebral infarction without residual deficits
CPT/HCPCS: 36415; 80048; 80164; 80307; 81003; 85025; 87635; 96372; 99285; J1200; J2060

== ENCOUNTER 2022-01-01 18:07 | Emergency (ER) | payer MEDICAID, SELFPAY ==
--- NOTE | ~2022-01-01 | XR_ITS ---
EXAMINATION: XR CHEST CLINICAL INFORMATION: Cough, Covid positive COMPARISON: Chest x-ray 07/17/2019 TECHNIQUE: Frontal view of the chest was obtained. FINDINGS: Lung volumes are slightly low. The lungs are clear. No airspace consolidation, pleural effusion, or pneumothorax. The cardiomediastinal silhouette is within normal limits. No acute osseous injury. Prominent gaseous distention of bowel loops likely the colon in the upper abdomen XR/XR chest 1V IMPRESSION: No acute pulmonary process.
--- NOTE | 2022-01-01 18:39 | ED_ITS ---
HPI - General Adult General Chief complaint: Upper Respiratory Symptoms Stated complaint: FEVER, COUGH, COVID + Time Seen by Provider: 01/01/22 18:37 Source: patient and EMS Mode of arrival: EMS Limitations: other (Intellectual disability) History of Present Illness HPI narrative: 31-year-old male with a past medical history of chronic static encephalopathy, TBI, intellectual disability, intermittent explosive disorder presenting via ambulance with known COVID + status, tested positive yesterday presenting with complaints of sore throat, not feeling well. Patient also as having an intermittent cough. Patient with intellectual disability and unable to provide me a great history, he just tells me that he is coughing and his throat hurts. Tells me sometimes he feels some chest discomfort from coughing however not when he is not coughing. Denies any shortness of breath. Unable to obtain an accurate review of systems from this patient due to intellectual disability. Related Data Home Medications Medication Instructions Recorded Confirmed melatonin 3 mg tablet 6 mg PO BEDTIME 10/14/21 11/29/21 Previous Rx's Medication Instructions Recorded calcium carbonate 500 mg calcium 500 mg PO Q4-6H PRN dyspepsia 30 10/03/21 (1,250 mg) chewable tablet days #60 tabs fluoxetine 40 mg capsule (Prozac) 40 mg PO QAM 30 days #30 caps 10/03/21 ibuprofen 600 mg tablet 600 mg PO Q6H PRN fever or pain 30 10/03/21 days #30 tabs linaclotide 145 mcg capsule 145 mcg PO QAM 30 days #30 caps 10/03/21 (Linzess) loratadine 10 mg tablet (Claritin) 10 mg PO DAILY 30 days #30 tabs 10/03/21 omeprazole 20 mg tablet,delayed 20 mg PO DAILY 30 days #30 tabs 10/03/21 release psyllium husk (with sugar) 3.4 1 tbsp PO QAM #861 grams 10/03/21 gram/12 gram oral powder divalproex 500 mg tablet,delayed 1,000 mg PO DAILY #30 tabs 10/17/21 release divalproex 500 mg tablet,delayed 500 mg PO BEDTIME #30 tabs 10/17/21 release olanzapine 10 mg tablet 10 mg PO BID #60 tabs 10/17/21 olanzapine 5 mg tablet 5 mg PO QID PRN Agitation #90 tabs 10/17/21 propranolol 20 mg tablet 20 mg PO TID #90 tabs 10/17/21 quetiapine 300 mg tablet 300 mg PO TID #90 tabs 10/17/21 benzonatate 100 mg capsule 100 mg PO BID PRN cough #20 caps 01/01/22 Allergies Allergy/AdvReac Type Severity Reaction Status Date / Time risperidone [From RISPERDAL] Allergy Unknown MUCLE Verified 12/04/20 19:14 TIGHTNESS Review of Systems Review of Systems: Yes Unobtainable due to mental status [facility] Past Medical History Attestation statement: The following information was validated with the patient. Source: old records reviewed and nursing notes reviewed Medical History Constipation Mental health disorder Social History Social History Household Members: Other Household Members Other:: lives in care home with 3 other patients Housing: House Do you presently have visiting nurse or other home services: Yes ([facility] care [facility]) Alcohol intake: former Patient Tobacco Use Status: Former Tobacco user Quit Date: 06/2020 Tobacco use type: Cigarette Cigarette Packs Per Day: 1 Cigarettes Per Day: 20.0 Years Smoked: 12 Second Hand Smoke Exposure: No Advance Directives: No Advance Directives Information Provided: No service: No Sexual orientation: Did not discuss. Physical Exam ED Vital Signs: Vital Signs - 24 hr 01/01/22 18:57 Temperature 98.8 F Pulse Rate 97 Respiratory Rate 16 Blood Pressure 125/71 Pulse Oximetry 95 Oxygen Delivery Method Room Air BMI result Body Mass Index 25.2 vss Appearance: Alert.? Oriented X3.? No acute distress.? Head: Normocephalic, atraumatic, no step-offs or deformities Eyes: Pupils equal, round and reactive to light.? ENT: Pharynx normal.? Neck: Normal inspection.? Neck supple.? CVS: Normal heart rate and rhythm.? Pulses normal.? Respiratory: No respiratory distress.? Breath sounds normal.? Abdomen: Soft and nontender.? Skin: Skin warm and dry.? Normal skin color.? Normal skin turgor.? Extremities: No lower extremity edema.? No calf ttp, negative dameon b/l. 5/5 strength to bilateral upper and lower extremities Back: No midline tenderness, no C-spine tenderness, full range of motion, no CVA tenderness bilaterally Neuro: Oriented X 3.? No motor deficit.? No sensory deficit. CN 2-12 intact Course Reevaluation(s) Reevaluation #1: Patient's chest x-ray with no acute findings. Patient is COVID positive. However, stable vital signs, saturating well on room air. Speaking in full sentences and appears comfortable. Sore throat likely secondary to COVID-19. Will give viscous lidocaine. Patient will be discharged home with comfort measures. Advised return with new or worsening symptoms. Outlined the sinus discharge. Comfortable discharge home Time: 20:12 Medical Decision Making MDM Narrative Medical decision making narrative: 1838 31 year old COVID + male presents w/ complaints of URI sx tested + yesterday PE benign. Lungs clear, regular rate and rhythm, abdomen soft nontender nondistended, negative Dameon bilaterally, neuro exam appears to be at patient's baseline. Likely symptoms secondary to COVID-19, unlikely that this is PE or pneumonia. Plan obtain a chest x-ray. Medical Records Medical records reviewed: Yes I reviewed the patient's medical records. Lab Data Lab results reviewed: Yes I reviewed the patient's lab results. Labs: Lab Results 01/01/22 Range/Units 19:15 COVID-19 (GARY) Positive A (Negative) COVID-19 Clin Com See Note Critical Care Time Critical Care Time Critical Care Time: No Discharge Plan Discharge Clinical Impression: COVID-19 Patient Disposition: Home, Self-Care Additional Instructions: Take your medications as prescribed. If you were prescribed antibiotics today, it is important that you take your medication to their entirety, do not skip any doses, do not finish them early. Today you tested positive for COVID-19. Take Ibuprofen or Tylenol as needed for fevers or body aches. Quarantine for 5 days and ensure you wear a mask. After 5 days you should wear a mask for 5 days after that. Practice social distancing and good hand hygiene. Drink plenty of fluids. Follow-up with your primary care provider this week. Return to the emergency department with new or worsening symptoms. In case of emergency call 911 You can purchase a pulse oximeter from your local pharmacy or grocery store, and monitor your oxygen saturation if it goes below 94% you should return to the emergency department for further evaluation. XR/XR chest 1V IMPRESSION: No acute pulmonary process. ? Prescriptions: New benzonatate 100 mg capsule 100 mg PO BID PRN (Reason: cough) Qty: 20 0RF No Action omeprazole 20 mg tablet,delayed release (DR/EC) 20 mg PO DAILY 30 Days Qty: 30 0RF Rx Instructions: Take every AM 1/2 hour prior to meal fluoxetine [Prozac] 40 mg capsule 40 mg PO QAM 30 Days Qty: 30 0RF Linzess 145 mcg capsule 145 mcg PO QAM 30 Days Qty: 30 0RF psyllium husk (with sugar) 3.4 gram/12 gram powder 1 tbsp PO QAM Qty: 861 0RF Rx Instructions: in 8oz fluid every morning loratadine [Claritin] 10 mg tablet 10 mg PO DAILY 30 Days Qty: 30 0RF Rx Instructions: Every AM calcium carbonate 500 mg calcium (1,250 mg) tablet,chewable 500 mg PO Q4-6H PRN (Reason: dyspepsia) 30 Days Qty: 60 0RF ibuprofen 600 mg tablet 600 mg PO Q6H PRN (Reason: fever or pain) 30 Days Qty: 30 0RF melatonin 3 mg Tablet 6 mg PO BEDTIME quetiapine 300 mg Tablet 300 mg PO TID Qty: 90 0RF olanzapine 5 mg Tablet 5 mg PO QID PRN (Reason: Agitation) Qty: 90 0RF olanzapine 10 mg Tablet 10 mg PO BID Qty: 60 0RF divalproex 500 mg Tablet,Delayed Release (Dr/Ec) 1,000 mg PO DAILY Qty: 30 0RF divalproex 500 mg Tablet,Delayed Release (Dr/Ec) 500 mg PO BEDTIME Qty: 30 0RF propranolol 20 mg Tablet 20 mg PO TID Qty: 90 0RF Protocol: Hold for SBP/HR < HOLD for SBP < : 90 HOLD for HR < : 60 Referrals: Physician,Unknown J [Primary Care Provider] - 2 days
[2022-01-01 18:57] VITALS: BP 125/71; PULSE 97; RESP 16; TEMP 37.1; O2SAT 95; BMI 26.8
[2022-01-01 19:20] VITALS: BMI 25.2
[2022-01-01 19:32] LABS: COVID-19 Test Positive (Negative)
--- NOTE | 2022-01-01 20:46 | PC.NURSE ---
left message for Rc Burdick school age program teacher for patient to be given ride back home
--- NOTE | 2022-01-01 22:57 | PC.NURSE ---
left message for client program manager Rc Burdick on [phone]. listed numbers: [phone] and [phone] no voicemail. pt resting comfortably, NAD
[2022-01-01] MEDS: Lidocaine HCl Viscous 2 % 15 ML SOLUTION 10 ML MUCOUS MEM (23:11)
[2022-01-01 23:15] VITALS: BP 132/77; PULSE 130; RESP 18; TEMP 36.5; O2SAT 94
[2022-01-02 00:06] VITALS: PULSE 104; RESP 16; O2SAT 95
[2022-01-02 01:27] VITALS: BP 127/82; PULSE 132; RESP 20; TEMP 37.7; O2SAT 94
[2022-01-02] MEDS: Acetaminophen 325 MG TABLET 650 MG PO (02:26)
--- NOTE | 2022-01-02 05:43 | PC.NURSE ---
This RN finally able to get ahold of the yard supervisor cotton gin @ the alf, Rc. Per Rc, he has been unable to answer the phone for 10.5 hours because he has been sleeping. This RN explaining that pt has been ready for discharge since 1999. Per Rc, no staff available for transport as noone wants to come to work because the alf is quarantining. Rc, yard supervisor cotton gin requesting this RN obtain an ambulance for transport or provide pt with public transportion despite the fact that he is disabled with a TBI and Covid+. Trout Farmer working on obtaining an ambulance for transport to [facility]. [facility] reporting no units available.
--- NOTE | 2022-01-02 06:06 | PC.NURSE ---
This US called [facility] @5:48 spoke with shari, to book a bls transfer back to [facility]. She stated that she will have to try to pass. @5:55 received a call back from [facility], they were unable to pass. ems book for 9am. Rn aware
--- NOTE | 2022-01-02 09:26 | PC.NURSE ---
pt is asleep but easily arousable, pt in no distress. per charge auditor ems has already been schedueled for transprt to facility.
== END 2022-01-02 10:04 | disposition home or self-care (01) ==
PROVIDERS: Physician Assistant; Emergency Provider Internal Medicine
DX: U07.1 COVID-19 (principal); R50.9 Fever, unspecified; R05.9 Cough, unspecified; F17.210 Nicotine dependence, cigarettes, uncomplicated; Z79.899 Other long term (current) drug therapy; Z71.6 Tobacco abuse counseling
CPT/HCPCS: 71045; 87635; 99283; 99284

== ENCOUNTER 2022-01-29 | Emergency (ER) | payer MEDICAID, SELFPAY ==
--- NOTE | 2022-01-29 | ECG_ITS ---
Test Reason : sibdhn Blood Pressure : / mmHG Vent. Rate : 066 BPM Atrial Rate : 066 BPM P-R Int : 150 ms QRS Dur : 096 ms QT Int : 410 ms P-R-T Axes : 004 034 015 degrees QTc Int : 429 ms Normal sinus rhythm Cannot rule out Anterior infarct , age undetermined Abnormal ECG When compared with ECG of 04-NOV-2021 18:36, No significant change was found Referred By: Generic ED Physician Electronically Signed By:LES OVALLE
--- NOTE | ~2022-01-29 | XR_ITS ---
EXAMINATION: XR CHEST CLINICAL INFORMATION: Chest pain COMPARISON: 01/01/2022 TECHNIQUE: Frontal view of the chest was obtained. FINDINGS: The lungs are clear with no focal consolidation. No evidence of pneumothorax, pulmonary edema, or pleural effusions. The cardiomediastinal silhouette is unremarkable. No acute osseous findings. XR/XR chest 1V IMPRESSION: No acute cardiopulmonary findings.
[2022-01-29 00:11] VITALS: BP 125/80; PULSE 81; O2SAT 96; BMI 25.0
[2022-01-29 02:00] VITALS: BP 134/70; PULSE 65; RESP 16; TEMP 36.5; O2SAT 97
[2022-01-29 04:00] VITALS: BP 140/60; PULSE 62; RESP 16; TEMP 36.6; O2SAT 98
--- NOTE | 2022-01-29 04:48 | PC.NURSE ---
lab draw and ekg was done by this pct .
--- NOTE | 2022-01-29 04:48 | PC.NURSE ---
PATIENT SAID HE ANT ABLE TO GIVE URINE SAMPLE AT THIS TIME ,RN AWARE .
[2022-01-29 05:09] LABS: Alanine Aminotransferase 8 U/L (0-40); Albumin Level 3.8 g/dL (3.5-5.0); Alkaline Phosphatase 114 U/L (39-117); Anion Gap 13 (12-20); Aspartate Amino Transferase 10 U/L (5-37); Bilirubin Total 0.6 mg/dL (0.0-1.0); Blood Urea Nitrogen 13 mg/dL (9-16); Calcium 8.5 mg/dL (8.4-10.2); Carbon Dioxide 31 mmol/L (22-29); Chloride 99 mmol/L (96-108); Creatinine Clr Calc Pharmacy 108.5; Estimated Glomerular Filt Rate > 60; Ethanol < 10 mg/dL; Glucose Random 90 mg/dL (60-115); Sodium 139 mmol/L (135-145); Total Protein 6.6 g/dL (6.5-8.0)
[2022-01-29 05:10] LABS: Troponin-I High Sensitivity < 3.5 ng/L (<3.5-35.0)
[2022-01-29 05:11] LABS: B Type Natriuretic Peptide 22 pg/mL (<100)
[2022-01-29 05:22] LABS: Hematocrit 34.1 % (42.0-52.0); Hemoglobin 11.5 g/dl (14.0-18.0); Mean Corpuscular HGB Conc 33.7 g/dl (31.0-36.0); Mean Corpuscular Hemoglobin 31.9 pg (27.0-33.0); Mean Corpuscular Volume 94.5 fL (80.0-98.0); Mean Platelet Volume 8.9 fL (9.4-12.4); Platelet Count 181 X10*3/uL (160-400); Red Blood Count 3.61 X10*6/uL (4.60-5.80); White Blood Count 6.4 X10*3/uL (4.8-10.8)
[2022-01-29 06:00] VITALS: BP 138/70; PULSE 62; RESP 16; TEMP 36.1; O2SAT 98
--- NOTE | 2022-01-29 06:21 | PC.NURSE ---
PATIENT RIP OFF LEADS ,RN LIBAN AWARE .
--- NOTE | 2022-01-29 08:51 | PC.NURSE ---
pt resting in hallway stretcher, rr even/unlabored. awakens to voice. offers no new complaints at this time. awaiting ua spec.
--- NOTE | 2022-01-29 10:19 | ED_ITS ---
HPI - Chest Pain General Chief Complaint: Chest Pain Stated Complaint: cerebral palsy Time Seen by Provider: 01/29/22 10:04 Source: patient and EMS Mode of arrival: EMS Limitations: no limitations History of Present Illness HPI narrative: Patient is a 31 year old male presenting to the emergency department today with chest pain. Patient was evaluated overnight by ASHWIN Holly during down time and their encounter is documented via paper charting. Patient was pending re- evaluation for discharge. Related Data Home Medications Medication Instructions Recorded Confirmed melatonin 3 mg tablet 6 mg PO BEDTIME 10/14/21 11/29/21 Previous Rx's Medication Instructions Recorded calcium carbonate 500 mg calcium 500 mg PO Q4-6H PRN dyspepsia 30 10/03/21 (1,250 mg) chewable tablet days #60 tabs fluoxetine 40 mg capsule (Prozac) 40 mg PO QAM 30 days #30 caps 10/03/21 ibuprofen 600 mg tablet 600 mg PO Q6H PRN fever or pain 30 10/03/21 days #30 tabs linaclotide 145 mcg capsule 145 mcg PO QAM 30 days #30 caps 10/03/21 (Linzess) loratadine 10 mg tablet (Claritin) 10 mg PO DAILY 30 days #30 tabs 10/03/21 omeprazole 20 mg tablet,delayed 20 mg PO DAILY 30 days #30 tabs 10/03/21 release psyllium husk (with sugar) 3.4 1 tbsp PO QAM #861 grams 10/03/21 gram/12 gram oral powder divalproex 500 mg tablet,delayed 1,000 mg PO DAILY #30 tabs 10/17/21 release divalproex 500 mg tablet,delayed 500 mg PO BEDTIME #30 tabs 10/17/21 release olanzapine 10 mg tablet 10 mg PO BID #60 tabs 10/17/21 olanzapine 5 mg tablet 5 mg PO QID PRN Agitation #90 tabs 10/17/21 propranolol 20 mg tablet 20 mg PO TID #90 tabs 10/17/21 quetiapine 300 mg tablet 300 mg PO TID #90 tabs 10/17/21 benzonatate 100 mg capsule 100 mg PO BID PRN cough #20 caps 01/01/22 Allergies Allergy/AdvReac Type Severity Reaction Status Date / Time risperidone [From RISPERDAL] Allergy Unknown MUCLE Verified 12/04/20 19:14 TIGHTNESS PMFSH Past Medical History Medical History Constipation Mental health disorder Social History Social History Household Members: Other Household Members Other:: lives in [facility] with [facility] other patients Housing: House Do you presently have visiting nurse or other home services: Yes ([facility]) Alcohol intake: former Patient Tobacco Use Status: Former Tobacco user Quit Date: 06/2020 Tobacco use type: Cigarette Cigarette Packs Per Day: 1 Cigarettes Per Day: 20.0 Years Smoked: 12 Second Hand Smoke Exposure: No Advance Directives: Yes Advance Directives Information Provided: No Advance Directives on File: No service: No Sexual orientation: Did not discuss. Physical Exam Vital Signs: Vital Signs: Last Vital Signs Temp 97.0 F 01/29/22 06:00 Pulse 62 01/29/22 06:00 Resp 16 01/29/22 06:00 BP 138/70 01/29/22 06:00 Pulse Ox 98 01/29/22 06:00 O2 Del Method 01/29/22 06:00 BMI result Body Mass Index 25.0 Const: General: cooperative, no acute distress, alert and awake Nutritional Appearance: well nourished Orientation/consciousness: patient oriented x3 Limitations: no limitations HEENT: Head: Yes normal to inspection and Yes atraumatic Ears: hearing grossly normal bilaterally and external ears normal General nose exam: Normal external nose present, no nasal discharge noted and no epistaxis Face and sinus: Yes normal facial exam, No abrasion and No laceration Mouth: Normal o ral and palatal mucosa present, no drooling and no muffled voice Eyes: General: appearance normal, both eyes and all related structures Periorbital: periorbital findings normal Eyelids: Yes eyelids normal Conjunctivae: conjunctivae normal Pupils: Equal, round and reactive pupils present EOM: EOMs intact bilaterally Neck: Neck: Yes normal visual inspection, Yes full ROM and Yes no lymphadenopathy Chest: Chest palpation & inspection: normal inspection of the chest Resp: Effort & Inspection: normal respiratory effort and able to speak in complete sentences Auscultation: clear to auscultation bilaterally Cardio: Rate: regular rate Rhythm: regular rhythm GI: Inspection: Yes normal to inspection Neuro: General: patient oriented x3 and moves all extremities Cranial nerves: Yes Equal, round and reactive pupils present Cognition (Neuro): normal cognition Motor exam (neuro): 5/5 motor strength present throughout Sensory Exam: Normal double simultaneous stimulation for sensation Coordination: [id number] test normal Extrem: General: Yes normal to inspection, Yes full ROM and Yes capillary refill normal Psych: Appearance: grossly normal Mental Status: mental status grossly normal Affect: normal affect Attitude: cooperative Thought process: Normal thought process present Thought content: Normal thought content present Insight: Good insight present (Psych) MDM - Chest Pain MDM Narrative Medical decision making narrative: Patient is a 31 year old male presenting to the emergency department today with chest pain. Patient's physical exam was unremarkable. Patient's blood work was unremarkable. Patient's EKG was unremarkable. Patient's chest x-ray showed no acute process. I explained my physical exam findings as well as all test results to the patient. I answered all questions asked by the patient. I stressed the importance of the patient taking his medication as prescribed. I stressed the importance of the patient following up with his primary care provider. I stressed the importance of the patient returning to the emergency department immediately if his symptoms were to worsen or if he were to develop any dizziness, shortness of breath, difficulty breathing, chest pain, blurry vision, loss of vision, nausea, vomiting, abdominal pain, fever, chills, back pain, or any other complaints. Patient verbalized agreement and understanding with this treatment plan and discharge. Differential Diagnosis Differential diagnosis: GERD Medical Records Data Attestation: I reviewed the patient's medical records. Lab Data Attestation: I reviewed the patient's lab results. Result diagrams: 01/29/22 03:30 01/29/22 03:30 Labs: Lab Results 01/29/22 01/29/22 01/29/22 Range/Units 03:30 03:30 03:30 WBC 6.4 (4.8-10.8) X10*3/uL RBC 3.61 L (4.60-5.80) X10*6/uL Hgb 11.5 L (14.0-18.0) g/dl Hct 34.1 L (42.0-52.0) % MCV 94.5 (80.0-98.0) fL MCH 31.9 (27.0-33.0) pg MCHC 33.7 (31.0-36.0) g/dl RDW 12.0 (11.0-16.0) % Plt Count 181 (160-400) X10*3/uL MPV 8.9 L (9.4-12.4) fL Immature Gran % (Auto) Cancelled Neut % (Auto) Cancelled Lymph % (Auto) Cancelled [place] % (Auto) Cancelled Eos % (Auto) Cancelled Baso % (Auto) Cancelled Lymph # (Auto) Cancelled [place] # (Auto) Cancelled Eos # (Auto) Cancelled Baso # (Auto) Cancelled Abs Immat Gran (auto) Cancelled Absolute Neuts (auto) Cancelled Absolute Nucleated RBC 0.000 (0.0-0.012) X10*3/uL Nucleated RBC % (auto) 0.0 (0.0-0.2) /100WBC Sodium 139 (135-145) mmol/L Potassium 4.0 (3.3-5.1) mmol/L Chloride 99 (96-108) mmol/L Carbon Dioxide 31 H (22-29) mmol/L Anion Gap 13 (12-20) BUN 13 (9-16) mg/dL Creatinine 0.93 (0.5-1.4) mg/dL Estim Creat Clear Calc 108.5 Estimated GFR > 60 Random Glucose 90 (60-115) mg/dL Calcium 8.5 (8.4-10.2) mg/dL Total Bilirubin 0.6 (0.0-1.0) mg/dL AST 10 (5-37) U/L ALT 8 (0-40) U/L Alkaline Phosphatase 114 (39-117) U/L Troponin I High Sens < 3.5 (<3.5-35.0) ng/L B-Natriuretic Peptide 22 (<100) pg/mL Total Protein 6.6 (6.5-8.0) g/dL Albumin 3.8 (3.5-5.0) g/dL Ethyl Alcohol < 10 mg/dL Imaging Data Chest x-ray: Attestation: I personally reviewed and interpreted this imaging study as follows: My impression: No acute process. Radiologist's impression: EXAMINATION: XR CHEST CLINICAL INFORMATION: Chest pain COMPARISON: 01/01/2022 TECHNIQUE: Frontal view of the chest was obtained. FINDINGS: The lungs are clear with no focal consolidation. No evidence of pneumothorax, pulmonary edema, or pleural effusions. The cardiomediastinal silhouette is unremarkable. No acute osseous findings. XR/XR chest 1V IMPRESSION: No acute cardiopulmonary findings. Dictated By: Osiel Tate MD Signed By: Electronically signed by Osiel Tate MD 01/29/22 0721 ECG Data ECG #1: Attestation: I personally reviewed and interpreted this ECG as follows: ECG interpretation date: 01/29/22 ECG interpretation time: 00:05 Prior ECG tracings: available for review Interpretation: Vent. Rate: 066 BPM ? ? Atrial Rate: 066 BPM P-R Int: 150 ms? QRS Dur: 096 ms QT Int: 410 ms ? ? ? P-R-T Axes: 004 034 015 degrees QTc Int: 429 ms ? Normal sinus rhythm Cannot rule out Anterior infarct , age undetermined Abnormal ECG When compared with ECG of 04-NOV-2021 18:36, No significant change was found Electronically Signed By:LES VOCP Dictated By: Les Torres DO Signed By: Electronically signed by Les Torres DO DD/ 0005 Discharge Plan Discharge Clinical Impression: Gastroesophageal reflux disease Patient Disposition: Home, Self-Care Instructions: Gastroesophageal Reflux Disease (ED) Additional Instructions: Follow up with your primary care provider. Return to the emergency department immediately if your symptoms worsen or if you develop any dizziness, shortness of breath, difficulty breathing, chest pain, blurry vision, loss of vision, nausea, vomiting, abdominal pain, fever, chills, back pain, or any other complaints. Prescriptions: No Action omeprazole 20 mg tablet,delayed release (DR/EC) 20 mg PO DAILY 30 Days Qty: 30 0RF Rx Instructions: Take every AM 1/2 hour prior to meal fluoxetine [Prozac] 40 mg capsule 40 mg PO QAM 30 Days Qty: 30 0RF Linzess 145 mcg capsule 145 mcg PO QAM 30 Days Qty: 30 0RF psyllium husk (with sugar) 3.4 gram/12 gram powder 1 tbsp PO QAM Qty: 861 0RF Rx Instructions: in 8oz fluid every morning loratadine [Claritin] 10 mg tablet 10 mg PO DAILY 30 Days Qty: 30 0RF Rx Instructions: Every AM calcium carbonate 500 mg calcium (1,250 mg) tablet,chewable 500 mg PO Q4-6H PRN (Reason: dyspepsia) 30 Days Qty: 60 0RF ibuprofen 600 mg tablet 600 mg PO Q6H PRN (Reason: fever or pain) 30 Days Qty: 30 0RF melatonin 3 mg Tablet 6 mg PO BEDTIME quetiapine 300 mg Tablet 300 mg PO TID Qty: 90 0RF olanzapine 5 mg Tablet 5 mg PO QID PRN (Reason: Agitation) Qty: 90 0RF olanzapine 10 mg Tablet 10 mg PO BID Qty: 60 0RF divalproex 500 mg Tablet,Delayed Release (Dr/Ec) 1,000 mg PO DAILY Qty: 30 0RF divalproex 500 mg Tablet,Delayed Release (Dr/Ec) 500 mg PO BEDTIME Qty: 30 0RF propranolol 20 mg Tablet 20 mg PO TID Qty: 90 0RF Protocol: Hold for SBP/HR < HOLD for SBP < : 90 HOLD for HR < : 60 benzonatate 100 mg capsule 100 mg PO BID PRN (Reason: cough) Qty: 20 0RF Referrals: [facility] [place] Family Medicine [Provider Group] (Call to establish and follow up with a primary care provider. If you already have a primary care provider, please follow up with them. ) [facility] [place] [facility] Primary CareVickie [Provider Group] (Call to establish and follow up with a primary care provider. If you already have a primary care provider, please follow up with them. ) [facility] [place] [facility] Primary Care,Rachael [Provider Group] (Call to establish and follow up with a primary care provider. If you already have a primary care provider, please follow up with them. ) Print Language: Hungarian
--- NOTE | 2022-01-29 10:27 | PC.NURSE ---
alf programs director contacted, [facility] staff will be here in approx 30 mins to give pt ride home.
== END 2022-01-29 11:30 | disposition home or self-care (01) ==
PROVIDERS: Internal Medicine; Emergency Provider Emergency Medicine
DX: K21.9 Gastro-esophageal reflux disease without esophagitis (principal); Z87.891 Personal history of nicotine dependence
CPT/HCPCS: 36415; 71045; 80053; 82077; 83880; 84484; 85027; 93005; 99283; 99284

== ENCOUNTER 2022-02-07 15:09 | Emergency (ER) | payer MEDICAID, SELFPAY ==
[2022-02-07 15:17] VITALS: BP 101/61; PULSE 88; RESP 18; TEMP 36.6; O2SAT 94; BMI 28.3
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
[2022-02-07] MEDS: OLANZapine 10 MG TABLET PO (15:48)
[2022-02-07 16:13] LABS: COVID-19 Test Negative (Negative); IDNOW Serial# 08D9AD1C
--- NOTE | 2022-02-07 17:01 | MHC.CARE ---
Nimesh smart sheet completed and sent
--- NOTE | 2022-02-07 17:02 | MHC.CARE ---
CARE Team attempted to speak with pt. Pt did not appear ready to speak with anyone.
[2022-02-07 17:06] LABS: Amphetamine Screen Urine Not Detected (Not Detect); Barbiturates, Urine Not Detected (Not Detect); Benzodiazepines Screen Urine Not Detected (Not Detect); Cannabinoid Screen Urine Not Detected (Not Detect); Cocaine Screen Urine Not Detected (Not Detect); Fentanyl, urine Not Detected (Not Detect); Opiate Screen Urine Not Detected (Not Detect); Phencyclidine Screen Urine Not Detected (Not Detect)
--- NOTE | 2022-02-07 20:04 | PHA.MEDREC ---
Pharmacy Consult ? Medication Reconciliation Pharmacy has completed the medication reconciliation using list from facility [facility]
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
[2022-02-07 21:38] VITALS: BP 86/51; PULSE 93; RESP 14; TEMP 36.7; O2SAT 92
[2022-02-08 09:41] VITALS: BP 124/82; PULSE 56; RESP 16; TEMP 36.4; O2SAT 96
--- NOTE | 2022-02-08 09:44 | PC.NURSE ---
Pt calm and cooperative this am, ate breakfast with no issue. Currently watching TV, 1:[address]
--- NOTE | 2022-02-08 11:59 | PC.NURSE ---
Pt ready for d/c, this nurse called manager gift to inform them of this. shift nurse manager would not like him to come back and they will not be picking him up until a more thorough examination has been done . This RN explained that Delonte was seen by crisis and was cleared however, the manager gift is concerned for the safety of her staff, other skilled nursing members and Delonte himself. This nurse informed the manager gift that she will reach out to [facility] to figure out a plan. this nurse reached out to [facility], clinician for Delonte not available at this time, [facility] will call ED back when available.
[2022-02-08 13:15] VITALS: BP 130/94; PULSE 65; RESP 14; TEMP 36.6; O2SAT 97
[2022-02-08 13:25] VITALS: BP 101/69; PULSE 100; TEMP 36.2; O2SAT 90
--- NOTE | 2022-02-08 13:49 | PC.NURSE ---
Pt called this RN over to his room, states he is having auditory hallucinations with commands to harm himself. PA aware.
--- NOTE | 2022-02-08 14:40 | PC.NURSE ---
Called [facility] a second time to talk to clinician who saw Delonte, [facility] incinerator plant general supervisor stated that since his case is closed they cannot do anything unless we file another [facility] request. [facility] referral sent [phone].
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
[2022-02-08] MEDS: Divalproex Sodium 500 MG TABLET.DR PO (17:34)
[2022-02-08] MEDS: Propranolol HCL 40 MG TABLET 80 MG PO (18:43)
[2022-02-08 18:44] VITALS: BP 116/87; PULSE 54; RESP 18; O2SAT 94
[2022-02-08] MEDS: LORazepam 1 MG TABLET 2 MG PO (20:11)
[2022-02-08] MEDS: Sennosides/Docusate Sodium TABLET 1 TAB PO (20:11)
[2022-02-08] MEDS: Divalproex Sodium 500 MG TABLET.DR 1000 MG PO (20:12)
[2022-02-08] MEDS: QUEtiapine Fumarate 300 MG TABLET PO (20:12)
[2022-02-08 22:17] VITALS: BP 126/84; PULSE 64; RESP 16; TEMP 36.4; O2SAT 97
[2022-02-09 00:07] VITALS: PULSE 66; RESP 18; O2SAT 97
[2022-02-09 00:46] VITALS: BP 109/52; PULSE 47; RESP 16; TEMP 36.4; O2SAT 93
--- NOTE | 2022-02-09 00:46 | PC.NURSE ---
Patient just got transferred from main ED, per care team note patient is cleared by [facility] for discharge but his halfway is declining to take him back, VSS, ambulates independently, safety check ordered/initiated, will continue to monitor.
[2022-02-09] MEDS: Omeprazole 20 MG CAPSULE.DR PO (06:06)
--- NOTE | 2022-02-09 07:51 | PC.NURSE ---
patient appears to remain asleep at present respirations are even and unlabored patient appears in no distress
[2022-02-09] MEDS: Divalproex Sodium 500 MG TABLET.DR PO ×2 (08:42→20:16)
[2022-02-09] MEDS: FLUoxetine HCl 20 MG CAPSULE PO (08:42)
[2022-02-09] MEDS: Loratadine 10 MG TABLET PO (08:42)
[2022-02-09] MEDS: LORazepam 1 MG TABLET 2 MG PO ×4 (08:43→20:15)
[2022-02-09] MEDS: QUEtiapine Fumarate 300 MG TABLET PO ×2 (08:43→20:16)
[2022-02-09] MEDS: Propranolol HCL 40 MG TABLET 80 MG PO (09:31)
--- NOTE | 2022-02-09 10:48 | MHC.CARE ---
CARE Team meets briefly with pt who discusses having AH yesterday evening.? He reports that the AH is command in nature telling him to kill himself.? Pt stated that these AH come and go throughout the day and that he is unsure what the trigger is. Pt was advised to alert staff on duty and/or CARE when he is experiencing these AH and begins to feel unsafe. Pt and CARE Team discuss his triggers for aggression.? Pt agreed that when he feels himself escalating, he will alert staff and/or CARE Team for assistance in deescalating him. At this time, pt stated that he is feeling ?Good? and is having a positive day thus far.? He discussed that he took his medications as instructed yesterday eveing.
[2022-02-09 10:52] VITALS: BP 114/75; PULSE 75; RESP 16; TEMP 36.9; O2SAT 95
--- NOTE | 2022-02-09 11:00 | MHC.CARE ---
1000 Call from Madison at [facility] who stated that patient was re-referred and they will wait until after psychiatry meets with patient. Please call her with updated information after psychiatry input.
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
[2022-02-09 17:46] VITALS: BP 106/74; PULSE 60; RESP 20; TEMP 36.7; O2SAT 96
[2022-02-09 20:01] LABS: MANUAL DIFF FLAG NO
[2022-02-09 20:02] LABS: Basophils Absolute Auto 0.1 X10*3/uL (0.0-0.2); Basophils Percent Auto 0.7 % (0-2); Eosinophils Absolute Auto 0.2 X10*3/uL (0.0-0.4); Eosinophils Percent Auto 2.1 % (0-4); Hematocrit 41.6 % (42.0-52.0); Imm Gran Abs Auto 0.04 X10*3/uL (0.00-0.03); Imm Gran Pct Auto 0.5 % (0.0-0.4); Lymphocytes Absolute Auto 2.6 X10*3/uL (1.2-4.9); Lymphocytes Percent Auto 34.7 % (20-40); Mean Corpuscular HGB Conc 33.7 g/dl (31.0-36.0); Mean Corpuscular Hemoglobin 32.1 pg (27.0-33.0); Mean Corpuscular Volume 95.4 fL (80.0-98.0); Mean Platelet Volume 9.1 fL (9.4-12.4); Monocytes Absolute Auto 0.7 X10*3/uL (0.1-1.2); Monocytes Percent Auto 8.7 % (2-11); Neutrophils Percent Auto 53.3 % (45-73); Platelet Count 247 X10*3/uL (160-400); Red Blood Count 4.36 X10*6/uL (4.60-5.80); Red Cell Distribution Width 12.4 % (11.0-16.0); White Blood Count 7.5 X10*3/uL (4.8-10.8)
[2022-02-09] MEDS: Sennosides/Docusate Sodium TABLET 1 TAB PO (20:16)
[2022-02-09] MEDS: OLANZapine 10 MG TABLET PO (20:16)
[2022-02-09 20:24] LABS: Alanine Aminotransferase 10 U/L (0-40); Albumin Level 4.4 g/dL (3.5-5.0); Alkaline Phosphatase 158 U/L (39-117); Anion Gap 17 (12-20); Aspartate Amino Transferase 13 U/L (5-37); Bilirubin Total 0.5 mg/dL (0.0-1.0); Blood Urea Nitrogen 18 mg/dL (9-16); Calcium 9.2 mg/dL (8.4-10.2); Carbon Dioxide 25 mmol/L (22-29); Chloride 101 mmol/L (96-108); Creatinine Clr Calc Pharmacy 100.5; Estimated Glomerular Filt Rate > 60; Glucose Random 78 mg/dL (60-115); Potassium 4.3 mmol/L (3.3-5.1); Sodium 139 mmol/L (135-145); Total Protein 8.1 g/dL (6.5-8.0); Valproate 45.3 mcg/mL (50.0-100.0)
--- NOTE | 2022-02-10 06:08 | PC.NURSE ---
Patient slept through the night, no distress observed/reported, medication compliant, patient had a brief period of behavior explosion but deescalated soon, disposition per [facility] is current provider, however psych provider wants to keep patient longer in ED POD for observation as patient was endorsing SI and AH, behavior unpredictable consistent with his baseline behavior and diagnosis, will continue to monitor.
--- NOTE | 2022-02-10 07:42 | PC.NURSE ---
patient appears to remain asleep at present respirations are even and [id number] patient appears in no distress.
[2022-02-10] MEDS: QUEtiapine Fumarate 300 MG TABLET PO ×2 (08:38→15:03)
[2022-02-10] MEDS: Divalproex Sodium 500 MG TABLET.DR 1000 MG PO (08:39)
[2022-02-10] MEDS: Loratadine 10 MG TABLET PO (08:39)
[2022-02-10] MEDS: OLANZapine 10 MG TABLET PO (08:39)
[2022-02-10] MEDS: FLUoxetine HCl 20 MG CAPSULE PO (08:39)
[2022-02-10] MEDS: LORazepam 1 MG TABLET 2 MG PO ×3 (09:53→16:44)
--- NOTE | 2022-02-10 12:00 | MHC.CARE ---
CARE Team leaves voicemails for pt's snf, clinician Rona and supervisor wash house Alison. CARE Team speaks with Renee Guerrero, service net nurse. Renee is provided w/ medication change update and agrees to call CARE Team back to help coordinate dc.
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
--- NOTE | 2022-02-10 14:20 | PC.NURSE ---
Attempt made to see pt this day for individual OT tx session. Pt is found to be laying down in bed asleep as he does not respond to this abstract writer despite several verbal prompts. Pts nurse notified and aware.
--- NOTE | 2022-02-10 17:07 | PC.NURSE ---
patient escalated verbally after being told he was dc'ing and engaged in some negative attn-seeking behaviors, patient gestured that he would come in nurses station opened doyle door and was verbally redirected to not do so. security called, many verbal redirections which eventually the patient responded and walked with security to his room.t/w went to main ED and requested order from ASHWIN gomez to give 2mg ativan po times one now. (client had slept through 12p dose today.
--- NOTE | 2022-02-10 20:00 | MHC.CARE ---
Late entry: 3pm - CARE team received med orders to be signed by provider and sent back with pt to his residential program. Orders were signed by Hallie CHRISTOPHER and given to residential program staff person, Roberta. At that time, the pt began to state that he doesn't want to go back to his program and made vague threatening statements to harm others if he goes back. He was redirectable and was able to speak with staff and accepted PO medication. 5pm - Pt agreeable to returning to the program, [facility] program staff expressed concerns with transporting him by herself in her personal vehicle. CARE team communicated with Renee [facility] client program manager, and discussed plan to either send another staff person for transport or to transport pt via ambulance. 6:30pm - CARE team received a phone call from Jorge Cuellar ([phone]), director at [facility], who expressed concerns re: the pt being discharged from the hospital without being admitted for stabilization. It was explained to him that the pt was evaluated numerous times over the weekend by clinical staff of varying disciplines and that he has been determined to be appropriate for discharge. Further discussion endured. The pt will remain in the ED overnight until a more mindful discharge plan can be arranged.
[2022-02-10] MEDS: Divalproex Sodium 500 MG TABLET.DR PO (20:26)
[2022-02-10] MEDS: Sennosides/Docusate Sodium TABLET 1 TAB PO (20:30)
--- NOTE | 2022-02-11 05:25 | PC.NURSE ---
Patient slept through whole evening and night, patient was unarousable for his night time medication, VSS, no distress observed/reported, pending discharge to shelter, care team coordinating discharge, behavior unpredictable, will continue to monitor.
[2022-02-11 06:47] VITALS: RESP 16
--- NOTE | 2022-02-11 07:02 | PC.NURSE ---
patient appears to remain asleep at present respirations are even and unlabored patient appears in no distress
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
--- NOTE | 2022-02-11 09:02 | PC.NURSE ---
patient offered meds patient continue to escalate, engage in negative attention seeking behavior, attempting to open door. after maybe 5-7 minutes processing patient took oral meds.
[2022-02-11] MEDS: Divalproex Sodium 500 MG TABLET.DR 1000 MG PO (09:11)
[2022-02-11] MEDS: Omeprazole 20 MG CAPSULE.DR PO ×2 (09:11)
[2022-02-11] MEDS: FLUoxetine HCl 20 MG CAPSULE PO (09:11)
[2022-02-11] MEDS: LORazepam 1 MG TABLET 2 MG PO ×2 (09:12→13:11)
[2022-02-11] MEDS: OLANZapine 10 MG TABLET PO (09:12)
[2022-02-11] MEDS: QUEtiapine Fumarate 300 MG TABLET PO ×2 (09:12→13:29)
[2022-02-11] MEDS: Loratadine 10 MG TABLET PO (09:13)
--- NOTE | 2022-02-11 14:06 | MHC.CARE ---
Patient discharging back to [facility] via ambulance at 4:00pm.
== END 2022-02-11 16:24 | disposition home or self-care (01) ==
PROVIDERS: Internal Medicine; Physician Assistant; Emergency Provider Emergency Medicine Emergency Medical Services
DX: F63.81 Intermittent explosive disorder (principal); F39 Unspecified mood [affective] disorder; R45.851 Suicidal ideations; R45.850 Homicidal ideations; Z20.822 Contact with and (suspected) exposure to COVID-19; G93.49 Other encephalopathy; Z87.891 Personal history of nicotine dependence; Z87.820 Personal history of traumatic brain injury; Z79.899 Other long term (current) drug therapy
CPT/HCPCS: 36415; 80053; 80164; 80307; 85025; 87635; 99284; 99285

== ENCOUNTER 2022-02-21 18:59 | Emergency (ER) | payer MEDICAID, SELFPAY ==
[2022-02-21 19:09] VITALS: BP 114/83; PULSE 76; RESP 19; TEMP 36.9; O2SAT 96; BMI 27.3
--- NOTE | 2022-02-21 19:38 | ED_ITS ---
HPI - Psych General Chief Complaint: Psychiatric Symptoms Stated Complaint: ANXIETTY Time Seen by Provider: 02/21/22 19:38 History of Present Illness HPI Narrative: Patient is a 31-year-old presents today with homicidal thoughts positive suicidal ideation well. No specific hand. Patient down in argument in a senior living. Denies any recreational drugs. No chest pain or shortness breath no nausea no vomiting. No systemic complaints. Related Data Home Medications Medication Instructions Recorded Confirmed melatonin 3 mg tablet 6 mg PO BEDTIME PRN Insomnia 10/14/21 02/21/22 calcium carbonate 500 mg calcium 500 mg PO Q4H PRN dyspepsia 02/07/22 02/21/22 (1,250 mg) chewable tablet divalproex 500 mg tablet,delayed 1,000 mg PO BEDTIME 02/07/22 02/21/22 release divalproex 500 mg tablet,delayed 500 mg PO DAILY 02/07/22 02/21/22 release fluoxetine 40 mg capsule (Prozac) 20 mg PO DAILY 02/07/22 02/21/22 lorazepam 2 mg tablet 2 mg PO TID 02/07/22 02/21/22 propranolol 20 mg tablet 80 mg PO DAILY 02/07/22 02/21/22 quetiapine 300 mg tablet 300 mg PO BID 02/07/22 02/21/22 sennosides 8.6 mg-docusate sodium 1 tab-cap PO BEDTIME 02/07/22 02/21/22 50 mg tablet (Senna with Docusate Sodium) Previous Rx's Medication Instructions Recorded ibuprofen 600 mg tablet 600 mg PO Q6H PRN fever or pain 30 10/03/21 days #30 tabs linaclotide 145 mcg capsule 145 mcg PO QAM 30 days #30 caps 10/03/21 (Linzess) loratadine 10 mg tablet (Claritin) 10 mg PO DAILY 30 days #30 tabs 10/03/21 omeprazole 20 mg tablet,delayed 20 mg PO DAILY 30 days #30 tabs 10/03/21 release psyllium husk (with sugar) 3.4 1 tbsp PO QAM #861 grams 10/03/21 gram/12 gram oral powder benzonatate 100 mg capsule 100 mg PO BID PRN cough #20 caps 01/01/22 olanzapine 10 mg tablet (Zyprexa) 10 mg PO BID #60 tabs 02/10/22 Allergies Allergy/AdvReac Type Severity Reaction Status Date / Time risperidone [From RISPERDAL] Allergy Unknown MUCLE Verified 12/04/20 19:14 TIGHTNESS Review of Systems Review of Systems: No chest pain or shortness breath no nausea no vomiting Yes all other systems are reviewed and are negative [facility] Past Medical History Attestation statement: The following information was validated with the patient. Medical History Constipation Mental health disorder Social History Social History Household Members: Other Household Members Other:: lives in senior living with 3 other patients Housing: House Do you presently have visiting nurse or other home services: Yes ([facility]) Alcohol intake: former Patient Tobacco Use Status: Former Tobacco user Quit Date: 06/2020 Tobacco use type: Cigarette Cigarette Packs Per Day: 1 Cigarettes Per Day: 20.0 Years Smoked: 12 Second Hand Smoke Exposure: No Advance Directives: No service: No Sexual orientation: Did not discuss. Physical Exam Vital Signs: Vital Signs: Last Vital Signs Temp 98.5 F 02/21/22 19:09 Pulse 76 02/21/22 19:09 Resp 19 02/21/22 19:09 BP 114/83 02/21/22 19:09 Pulse Ox 96 02/21/22 19:09 O2 Del Method 02/21/22 19:09 BMI result Body Mass Index 27.3 Appearance: Alert. Oriented X3. No acute distress. Eyes: Pupils equal, round and reactive to light. ENT: Pharynx normal. Neck: Normal inspection. Neck supple. No lymph nodes noted. No crepitus CVS: Normal heart rate and rhythm. Pulses normal. Normal S1 and S2 Respiratory: No respiratory distress. Breath sounds normal. No Wheezing. No rales Abdomen: Soft and nontender. No rigidity. No distention. good BS x4 Skin: Skin warm and dry. Normal skin color. Normal skin turgor. Extremities: No lower extremity edema. Neurovascular intact to all extremities. No Lacerations. No Rash Neuro: Oriented X 3. No motor deficit. No sensory deficit. Moving all extermities. No slurred speech. Cranial nerves grossly intact MDM - Psych MDM Narrative Medical decision making narrative: Patient not suicidal, angry at the senior living. Thoughts of homicidal ideation. Will give crisis evaluation. Stable condition Patient to be evaluated by crisis. Currently medically cleared. Medical Records Attestation: I reviewed the patient's medical records. Lab Data Attestation: I reviewed the patient's lab results. Result diagrams: 02/21/22 20:32 02/21/22 20:32 Labs: Lab Results 02/21/22 02/21/22 02/21/22 Range/Units 19:27 19:29 20:32 WBC (4.8-10.8) X10*3/uL RBC (4.60-5.80) X10*6/uL Hgb (14.0-18.0) g/dl Hct (42.0-52.0) % MCV (80.0-98.0) fL MCH (27.0-33.0) pg MCHC (31.0-36.0) g/dl RDW (11.0-16.0) % Plt Count (160-400) X10*3/uL MPV (9.4-12.4) fL Immature Gran % (Auto) (0.0-0.4) % Neut % (Auto) (45-73) % Lymph % (Auto) (20-40) % [place] % (Auto) (2-11) % Eos % (Auto) (0-4) % Baso % (Auto) (0-2) % Lymph # (Auto) (1.2-4.9) X10*3/uL [place] # (Auto) (0.1-1.2) X10*3/uL Eos # (Auto) (0.0-0.4) X10*3/uL Baso # (Auto) (0.0-0.2) X10*3/uL Abs Immat Gran (auto) (0.00-0.03) X10*3/uL Absolute Neuts (auto) (2.0-8.3) x10*3/uL Absolute Nucleated RBC (0.0-0.012) X10*3/uL Nucleated RBC % (auto) (0.0-0.2) /100WBC Sodium 139 (135-145) mmol/L Potassium 4.3 (3.3-5.1) mmol/L Chloride 102 (96-108) mmol/L Carbon Dioxide 25 (22-29) mmol/L Anion Gap 16 (12-20) BUN 16 (9-16) mg/dL Creatinine 0.84 (0.5-1.4) mg/dL Estim Creat Clear Calc 129.8 Estimated GFR > 60 Random Glucose 101 (60-115) mg/dL Calcium 8.9 (8.4-10.2) mg/dL Total Bilirubin 0.4 (0.0-1.0) mg/dL AST 16 (5-37) U/L ALT 14 (0-40) U/L Alkaline Phosphatase 133 H (39-117) U/L Total Protein 7.1 (6.5-8.0) g/dL Albumin 3.8 (3.5-5.0) g/dL Urine Opiates Screen Not Detected (Not Detect) Urine Fentanyl Screen Not Detected (Not Detect) Ur Barbiturates Screen Not Detected (Not Detect) Valproic Acid 47.5 L (50.0-100.0) mcg/mL Ur Phencyclidine Scrn Not Detected (Not Detect) Ur Amphetamines Screen Not Detected (Not Detect) U Benzodiazepines Scrn Not Detected (Not Detect) Urine Cocaine Screen Not Detected (Not Detect) U Marijuana (THC) Screen Not Detected (Not Detect) COVID-19 (GARY) Negative (Negative) COVID-19 Clin Com See Note 02/21/22 Range/Units 20:32 WBC 6.9 (4.8-10.8) X10*3/uL RBC 3.89 L (4.60-5.80) X10*6/uL Hgb 12.9 L (14.0-18.0) g/dl Hct 37.1 L (42.0-52.0) % MCV 95.4 (80.0-98.0) fL MCH 33.2 H (27.0-33.0) pg MCHC 34.8 (31.0-36.0) g/dl RDW 12.1 (11.0-16.0) % Plt Count 188 (160-400) X10*3/uL MPV 9.1 L (9.4-12.4) fL Immature Gran % (Auto) 1.2 H (0.0-0.4) % Neut % (Auto) 50.8 (45-73) % Lymph % (Auto) 37.6 (20-40) % [place] % (Auto) 7.6 (2-11) % Eos % (Auto) 2.2 (0-4) % Baso % (Auto) 0.6 (0-2) % Lymph # (Auto) 2.6 (1.2-4.9) X10*3/uL [place] # (Auto) 0.5 (0.1-1.2) X10*3/uL Eos # (Auto) 0.2 (0.0-0.4) X10*3/uL Baso # (Auto) 0.0 (0.0-0.2) X10*3/uL Abs Immat Gran (auto) 0.08 H (0.00-0.03) X10*3/uL Absolute Neuts (auto) 3.5 (2.0-8.3) x10*3/uL Absolute Nucleated RBC 0.000 (0.0-0.012) X10*3/uL Nucleated RBC % (auto) 0.0 (0.0-0.2) /100WBC Sodium (135-145) mmol/L Potassium (3.3-5.1) mmol/L Chloride (96-108) mmol/L Carbon Dioxide (22-29) mmol/L Anion Gap (12-20) BUN (9-16) mg/dL Creatinine (0.5-1.4) mg/dL Estim Creat Clear Calc Estimated GFR Random Glucose (60-115) mg/dL Calcium (8.4-10.2) mg/dL Total Bilirubin (0.0-1.0) mg/dL AST (5-37) U/L ALT (0-40) U/L Alkaline Phosphatase (39-117) U/L Total Protein (6.5-8.0) g/dL Albumin (3.5-5.0) g/dL Urine Opiates Screen (Not Detect) Urine Fentanyl Screen (Not Detect) Ur Barbiturates Screen (Not Detect) Valproic Acid (50.0-100.0) mcg/mL Ur Phencyclidine Scrn (Not Detect) Ur Amphetamines Screen (Not Detect) U Benzodiazepines Scrn (Not Detect) Urine Cocaine Screen (Not Detect) U Marijuana (THC) Screen (Not Detect) COVID-19 (GARY) (Negative) COVID-19 Clin Com Discharge Plan Discharge Clinical Impression: Depression, Acute anxiety, Mood disorder Prescriptions: No Action omeprazole 20 mg tablet,delayed release (DR/EC) 20 mg PO DAILY 30 Days Qty: 30 0RF Rx Instructions: Take every AM 1/2 hour prior to meal Linzess 145 mcg capsule 145 mcg PO QAM 30 Days Qty: 30 0RF psyllium husk (with sugar) 3.4 gram/12 gram powder 1 tbsp PO QAM Qty: 861 0RF Rx Instructions: in 8oz fluid every morning loratadine [Claritin] 10 mg tablet 10 mg PO DAILY 30 Days Qty: 30 0RF Rx Instructions: Every AM ibuprofen 600 mg tablet 600 mg PO Q6H PRN (Reason: fever or pain) 30 Days Qty: 30 0RF melatonin 3 mg Tablet 6 mg PO BEDTIME PRN (Reason: Insomnia) benzonatate 100 mg capsule 100 mg PO BID PRN (Reason: cough) Qty: 20 0RF sennosides-docusate sodium [Senna with Docusate Sodium] 8.6-50 mg Tablet 1 tab-cap PO BEDTIME lorazepam 2 mg Tablet 2 mg PO TID fluoxetine [Prozac] 40 mg capsule 20 mg PO DAILY quetiapine 300 mg tablet 300 mg PO BID divalproex 500 mg tablet,delayed release (DR/EC) 1,000 mg PO BEDTIME divalproex 500 mg tablet,delayed release (DR/EC) 500 mg PO DAILY calcium carbonate 500 mg calcium (1,250 mg) tablet,chewable 500 mg PO Q4H PRN (Reason: dyspepsia) propranolol 20 mg tablet 80 mg PO DAILY Protocol: Hold for SBP/HR < HOLD for SBP < : 90 HOLD for HR < : 60 olanzapine [Zyprexa] 10 mg tablet 10 mg PO BID Qty: 60 0RF
[2022-02-21 19:51] LABS: COVID-19 Test Negative (Negative); IDNOW Serial# 55D5AD1C
[2022-02-21 19:53] LABS: Amphetamine Screen Urine Not Detected (Not Detect); Barbiturates, Urine Not Detected (Not Detect); Benzodiazepines Screen Urine Not Detected (Not Detect); Cannabinoid Screen Urine Not Detected (Not Detect); Cocaine Screen Urine Not Detected (Not Detect); Fentanyl, urine Not Detected (Not Detect); Opiate Screen Urine Not Detected (Not Detect); Phencyclidine Screen Urine Not Detected (Not Detect)
[2022-02-21 20:39] LABS: MANUAL DIFF FLAG NO
[2022-02-21 20:40] LABS: Basophils Percent Auto 0.6 % (0-2); Eosinophils Absolute Auto 0.2 X10*3/uL (0.0-0.4); Eosinophils Percent Auto 2.2 % (0-4); Hematocrit 37.1 % (42.0-52.0); Hemoglobin 12.9 g/dl (14.0-18.0); Imm Gran Abs Auto 0.08 X10*3/uL (0.00-0.03); Imm Gran Pct Auto 1.2 % (0.0-0.4); Lymphocytes Absolute Auto 2.6 X10*3/uL (1.2-4.9); Lymphocytes Percent Auto 37.6 % (20-40); Mean Corpuscular HGB Conc 34.8 g/dl (31.0-36.0); Mean Corpuscular Hemoglobin 33.2 pg (27.0-33.0); Mean Corpuscular Volume 95.4 fL (80.0-98.0); Mean Platelet Volume 9.1 fL (9.4-12.4); Monocytes Absolute Auto 0.5 X10*3/uL (0.1-1.2); Monocytes Percent Auto 7.6 % (2-11); Neutrophils Absolute Auto 3.5 x10*3/uL (2.0-8.3); Neutrophils Percent Auto 50.8 % (45-73); Platelet Count 188 X10*3/uL (160-400); Red Blood Count 3.89 X10*6/uL (4.60-5.80); Red Cell Distribution Width 12.1 % (11.0-16.0); White Blood Count 6.9 X10*3/uL (4.8-10.8)
[2022-02-21 21:00] LABS: Valproate 47.5 mcg/mL (50.0-100.0)
[2022-02-21 21:09] LABS: Alanine Aminotransferase 14 U/L (0-40); Albumin Level 3.8 g/dL (3.5-5.0); Alkaline Phosphatase 133 U/L (39-117); Anion Gap 16 (12-20); Aspartate Amino Transferase 16 U/L (5-37); Bilirubin Total 0.4 mg/dL (0.0-1.0); Blood Urea Nitrogen 16 mg/dL (9-16); Calcium 8.9 mg/dL (8.4-10.2); Carbon Dioxide 25 mmol/L (22-29); Chloride 102 mmol/L (96-108); Creatinine Clr Calc Pharmacy 129.8; Estimated Glomerular Filt Rate > 60; Glucose Random 101 mg/dL (60-115); Potassium 4.3 mmol/L (3.3-5.1); Sodium 139 mmol/L (135-145); Total Protein 7.1 g/dL (6.5-8.0)
--- NOTE | 2022-02-22 06:11 | PC.NURSE ---
Patient slept through the night, no distress observed/reported, behavior appropriate and non concerning, medication reconciliation completed/pending provider's approval, BHN referral completed/confirmed/pending ETA, VSS, will continue to monitor.
[2022-02-22 09:55] VITALS: BP 119/79; PULSE 75; O2SAT 94
[2022-02-22] MEDS: OLANZapine 10 MG TABLET PO ×2 (10:45→20:10)
[2022-02-22] MEDS: Divalproex Sodium 500 MG TABLET.DR PO (10:45)
[2022-02-22] MEDS: Omeprazole 20 MG CAPSULE.DR PO (10:46)
[2022-02-22] MEDS: LORazepam 1 MG TABLET 2 MG PO ×2 (10:46→20:10)
[2022-02-22] MEDS: Loratadine 10 MG TABLET PO (10:46)
[2022-02-22] MEDS: FLUoxetine HCl 20 MG CAPSULE PO (10:47)
[2022-02-22] MEDS: QUEtiapine Fumarate 300 MG TABLET PO ×2 (10:47→20:10)
--- NOTE | 2022-02-22 10:55 | PHA.MEDREC ---
Pharmacy Consult ? Medication Reconciliation Pharmacy has completed the medication reconciliation. Patient had came in with no med list from facility and claim history only reports recent fill for olanzapine, with everything else dating back to August 2021. Called skilled nursing nurse (Ama) at [phone] and multiple times and left a message. Have not received call back at time of note. Spoke to patient which stated they didn't know meds, and referred me to pharmacy and/or skilled nursing nurse. Called [facility] pharmacy in [place], however they are only open Mon-Fri and received no response form them either. Patient was here on 02/07/22 and med rec was done by Ezra. Used Ezra as reference for med rec as he obtained list from facility. Will need to follow up with skilled nursing nurse and pharmacy to verify.
--- NOTE | 2022-02-22 16:31 | PC.NURSE ---
Nya MARSH came to transfer patient to [facility]. Patient c/o palpitations and dizziness. Dr. Valadez notified patient not stable to go to [facility]. MD ordered fluids, labs, ekg, and zofran for nausea. Patient has 1:1 sitter. Will continue with plan of care.
--- NOTE | 2022-02-22 17:15 | MHC.CARE ---
Florinda Funez, clinical director at [facility], contacted CARE team to provide information re: upcoming pt appointments and treatment planning. Pt has an appt with his outpatient psychiatrist this week. Monthly medication injections will be discussed at that time, as pt is chronically noncompliant with his medications, and whether the pt should be initiated on the injections inpatient vs outpatient. They are starting to discuss finding a new residential placement for the pt, which is likely to take a long time. CARE team evaluated pt, plan is for psychiatry consult on Friday 02/23
[2022-02-22] MEDS: Divalproex Sodium 500 MG TABLET.DR 1000 MG PO (20:10)
[2022-02-22] MEDS: Sennosides/Docusate Sodium TABLET 1 TAB PO (20:10)
[2022-02-23 06:23] VITALS: RESP 17
--- NOTE | 2022-02-23 06:38 | PC.NURSE ---
Patient slept though the night, no distress observed/reported, medication compliant, behavior appropriate, good control, no aggression, and friendly with staff member, patient seen by care team, pending disposition, awaiting psych consult today, VSS, will continue to monitor.
[2022-02-23] MEDS: FLUoxetine HCl 20 MG CAPSULE PO (08:51)
[2022-02-23] MEDS: Omeprazole 20 MG CAPSULE.DR PO (08:51)
[2022-02-23] MEDS: Divalproex Sodium 500 MG TABLET.DR PO (08:51)
[2022-02-23] MEDS: OLANZapine 10 MG TABLET PO (08:52)
[2022-02-23] MEDS: Loratadine 10 MG TABLET PO (08:52)
[2022-02-23] MEDS: LORazepam 1 MG TABLET 2 MG PO (08:52)
[2022-02-23] MEDS: QUEtiapine Fumarate 300 MG TABLET PO (08:56)
--- NOTE | 2022-02-23 09:01 | PC.NURSE ---
PT AWAKE AND ATE BREAKFAST, HE IS IN GOOD BEHAVIORAL CONTROL. HE WAS MEDICATED CHARTED.
[2022-02-23] MEDS: Propranolol HCL 40 MG TABLET 80 MG PO (09:33)
--- NOTE | 2022-02-23 10:27 | MHC.CARE ---
CARE Team left with Rona from [facility] .
[2022-02-23 10:54] VITALS: BP 112/72; PULSE 85; TEMP 36.6; O2SAT 94
--- NOTE | 2022-02-23 11:18 | MHC.CARE ---
CARE Team spoke with Rona from [facility] regarding Pt. Plan discussed regarding psychiatry providing disposition and treatment recommendations. Rona aware of limitations of the ED setting. Rona reported currently Pts outpatient team is reviewing appropriateness of monthly injectable and discussing alternative placements. Plan for care team to follow up with Rona after review of case with psych
--- NOTE | 2022-02-23 12:40 | MHC.CARE ---
CARE Team reviewed case with Dr. Asencio regarding Pt. Plan for [facility] to [facility] to the [facility]. Pt has a recent medication change in the beginning of February and has an appointment schedule with his outpatient provider this week. CARE Team left message with Rona from [facility]. CARE Team spoke with Pts primary RN Marixa Kamara regarding discharge home.
== END 2022-02-23 17:52 | disposition skilled nursing facility (03) ==
PROVIDERS: Emergency Medicine Emergency Medical Services; Emergency Provider Emergency Medicine
DX: F32.A Depression, unspecified (principal); F41.9 Anxiety disorder, unspecified; F39 Unspecified mood [affective] disorder; R45.851 Suicidal ideations; R45.850 Homicidal ideations; F63.81 Intermittent explosive disorder; Z20.822 Contact with and (suspected) exposure to COVID-19; Z79.899 Other long term (current) drug therapy; Z87.891 Personal history of nicotine dependence; Z87.820 Personal history of traumatic brain injury
CPT/HCPCS: 36415; 80053; 80164; 80307; 85025; 87635; 99284; 99285

== ENCOUNTER 2022-06-26 20:20 | Emergency (ER) | payer OTHER, MEDICAID, SELFPAY ==
[2022-06-26 20:25] VITALS: BMI 25.0
[2022-06-26 20:30] VITALS: BP 116/79; PULSE 87; RESP 20; TEMP 37.1; O2SAT 93
--- NOTE | 2022-06-26 20:56 | ED.PSYCH ---
HPI - Psych General Chief Complaint: Psychiatric Symptoms Stated Complaint: Behavioral health issues per EMS Time Seen by Provider: 06/26/22 20:24 Source: patient Mode of arrival: EMS Limitations: no limitations History of Present Illness HPI Narrative: Patient comes to the emergency room via EMS from a senior care. Patient presents to the ED complaining that he had a verbal altercation with the senior care staff and he feels aggravated. Patient denies any other issues, denies SI or HI. Related Data Home Medications Medication Instructions Recorded Confirmed melatonin 3 mg tablet 6 mg PO BEDTIME PRN Insomnia 10/14/21 06/26/22 calcium carbonate 500 mg calcium 500 mg PO Q4H PRN dyspepsia 02/07/22 06/26/22 (1,250 mg) chewable tablet divalproex 500 mg tablet,delayed 1,500 mg PO BEDTIME 02/07/22 06/26/22 release fluoxetine 40 mg capsule (Prozac) 40 mg PO DAILY 02/07/22 06/26/22 propranolol 20 mg tablet 80 mg PO QAM 02/07/22 06/26/22 quetiapine 300 mg tablet 300 mg PO BID 02/07/22 06/26/22 sennosides 8.6 mg-docusate sodium 1 tab-cap PO BEDTIME 02/07/22 06/26/22 50 mg tablet (Senna with Docusate Sodium) fluoxetine 10 mg capsule 30 mg PO QAM 06/26/22 06/26/22 loratadine 10 mg tablet (Claritin) 10 mg PO QAM 06/26/22 06/26/22 lorazepam 1 mg tablet (Ativan) 1 mg PO QID 06/26/22 06/26/22 olanzapine 15 mg tablet 15 mg PO BID 06/26/22 06/26/22 quetiapine 200 mg tablet 400 mg PO BEDTIME 06/26/22 06/26/22 zolpidem 10 mg tablet 10 mg PO BEDTIME 06/26/22 06/26/22 Previous Rx's Medication Instructions Recorded ibuprofen 600 mg tablet 600 mg PO Q6H PRN fever or pain 30 10/03/21 days #30 tabs linaclotide 145 mcg capsule 145 mcg PO QAM 30 days #30 caps 10/03/21 (Linzess) omeprazole 20 mg tablet,delayed 20 mg PO DAILY 30 days #30 tabs 10/03/21 release psyllium husk (with sugar) 3.4 1 tbsp PO QAM #861 grams 10/03/21 gram/12 gram oral powder benzonatate 100 mg capsule 100 mg PO BID PRN cough #20 caps 01/01/22 Allergies Allergy/AdvReac Type Severity Reaction Status Date / Time risperidone [From RISPERDAL] Allergy Unknown MUCLE Verified 12/04/20 19:14 TIGHTNESS Review of Systems Review of Systems: Constitutional : No Weight loss, No Fever, No Chills, No Night Sweats, No Fatigue, No Malaise ENT/Mouth : No Hearing loss, No Ear Pain, No Nasal Congestion, No Sinus Pain, No Hoarseness, No sore throat, No Rhinorrhea, No Swallowing Difficulty Eyes: No Eye Pain, No Swelling, No Redness, No Foreign Body, No Discharge, No Vision Changes Cardiovascular : No Chest Pain, No SOB, No Dyspnea on Exertion, No Orthopnea, No Edema, No Palpitations Respiratory : No Cough, No Sputum, No Wheezing, No Smoke Exposure, No Dyspnea Gastrointestinal : No Nausea, No Vomiting, No Diarrhea, No Constipation, No abdominal Pain, No Hematochezia, No Melena Genitourinary : no irregular bleeding, No Dysuria, No Urinary Frequency, No Hematuria, No Urinary Incontinence, No Urgency, No Flank Pain, No Urinary Flow Changes, No Hesitancy Musculoskeletal : No joint pain, No Myalgias, No Joint Swelling Skin : No Skin Lesions, No rash Neuro : No Weakness, No Numbness, No Paresthesias, No Loss of Consciousness, No Dizziness, No Headache Psych : Complaining of feeling angry after having a verbal altercation at the senior care with the staff and other residents Heme/Lymph: No Bruising, No Bleeding,No Lymphadenopathy Endocrine : No Polyuria, No Polydipsia, No Temperature Intolerance PMF Past Medical History Medical History Constipation Mental health disorder Social History Social History Household Members: Other Household Members Other:: lives in senior care with 3 other patients Housing: House Do you presently have visiting nurse or other home services: Yes ([facility] senior care) Alcohol intake: former Patient Tobacco Use Status: Former Tobacco user Quit Date: 06/2020 Tobacco use type: Cigarette Cigarette Packs Per Day: 1 Cigarettes Per Day: 20.0 Years Smoked: 12 Second Hand Smoke Exposure: No service: No Sexual orientation: Did not discuss. Physical Exam Vital Signs: Vital Signs: Last Vital Signs Temp 98.8 F 06/26/22 20:30 Pulse 87 06/26/22 20:30 Resp 20 06/26/22 20:30 BP 116/79 06/26/22 20:30 Pulse Ox 93 06/26/22 20:30 O2 Del Method 06/26/22 20:30 BMI result Body Mass Index 25.0 Const: Other: Appearance: Alert. Oriented X3. No acute distress. Eyes: Pupils equal, round and reactive to light. ENT: Pharynx normal. Neck: Normal inspection. Neck supple. No lymph nodes noted. No crepitus CVS: Normal heart rate and rhythm. Pulses normal. Normal S1 and S2 Respiratory: No respiratory distress. Breath sounds normal. No Wheezing. No rales Abdomen: Soft and nontender. No rigidity. No distention. Skin: Skin warm and dry. Normal skin color. Normal skin turgor. Extremities: No lower extremity edema. No Lacerations. No Rash Neuro: Oriented X 3. No motor deficit. No sensory deficit. Moving all extremities. No slurred speech. CN 2 through 12 grossly intact Psych: calm, cooperative, normal affect Course Course Course Narrative: -patient is at baseline, well known to the behavioral health pod staff -patient states he has been taking the medications, it is well-known that patient stops taking his medications when he is upset. -we will go ahead and obtain some baseline blood work -care consult pending -physician observation started at 21:08 Discharge Plan Discharge Clinical Impression: Acute anxiety Patient Disposition: Still a Patient Prescriptions: No Action omeprazole 20 mg tablet,delayed release (DR/EC) 20 mg PO DAILY 30 Days Qty: 30 0RF Rx Instructions: Take every AM 1/2 hour prior to meal Linzess 145 mcg capsule 145 mcg PO QAM 30 Days Qty: 30 0RF psyllium husk (with sugar) 3.4 gram/12 gram powder 1 tbsp PO QAM Qty: 861 0RF Rx Instructions: in 8oz fluid every morning ibuprofen 600 mg tablet 600 mg PO Q6H PRN (Reason: fever or pain) 30 Days Qty: 30 0RF melatonin 3 mg Tablet 6 mg PO BEDTIME PRN (Reason: Insomnia) benzonatate 100 mg capsule 100 mg PO BID PRN (Reason: cough) Qty: 20 0RF loratadine [Claritin] 10 mg tablet 10 mg PO QAM Rx Instructions: Every AM fluoxetine 10 mg Capsule 30 mg PO QAM Rx Instructions: give it with 40 mg with total dose of 70 mg lorazepam [Ativan] 1 mg Tablet 1 mg PO QID quetiapine 200 mg tablet 400 mg PO BEDTIME zolpidem 10 mg Tablet 10 mg PO BEDTIME olanzapine 15 mg tablet 15 mg PO BID sennosides-docusate sodium [Senna with Docusate Sodium] 8.6-50 mg Tablet 1 tab-cap PO BEDTIME fluoxetine [Prozac] 40 mg capsule 40 mg PO DAILY quetiapine 300 mg tablet 300 mg PO BID divalproex 500 mg tablet,delayed release (DR/EC) 1,500 mg PO BEDTIME calcium carbonate 500 mg calcium (1,250 mg) tablet,chewable 500 mg PO Q4H PRN (Reason: dyspepsia) propranolol 20 mg tablet 80 mg PO QAM Protocol: Hold for SBP/HR < HOLD for SBP < : 90 HOLD for HR < : 60 Interventions: Amelia-Suicide Risk Severity Scale Last Done: 06/26/22 20:31
[2022-06-26 21:09] LABS: MANUAL DIFF FLAG NO
[2022-06-26 21:11] LABS: Appearance Urine Clear; Color Urine Dark Yellow; Glucose Urine UA Negative (Negative); Leukocyte Esterase Urine Negative (Negative); Nitrite Urine Negative (Negative); Specific Gravity - Urine >= 1.030 (1.005-1.025); Urine Blood Negative (Negative); Urine Ketones Trace mg/dL (Negative); Urine Protein Trace mg/dL (Neg-Trace)
--- OUTSIDE RECORDS SUMMARY | 2022-06-26 21:13 | XMS_ITS | Continuity of Care Document ---
:1990 Author Organization [facility] Address [address] [place] [address]- Care Team Providers Name Role Phone Keturah Ashby NP Primary Care Physician Encounter [facility] NBR [id number] Date(s): 09/09/21 - 10/09/21 [facility] [address] [place] [address]- Encounter Diagnosis Bipolar disorder (Discharge Diagnosis) - 09/09/21 Attending Physician: Keturah Ashby NP Allergies, Adverse Reactions, Alerts Substance Reaction Severity Status Risperdal unkown Active Immunizations Given and Recorded Vaccine Date Status Refusal Reason influenza virus vaccine, inactivated1 07/03/19 Given 1Result Comment: [facility] [place]# [id number] Medications calcium carbonate 500 mg (200 mg elemental calcium) oral tablet, chewable 500 mg, 1, tablet, By Mouth, Every 4 hours, PRN, Refills 0, Maintenance, Dyspepsia, 04/03/21 9:49:00EDT, Partial fill upon patient request if the prescription is for a schedule II opioid drug. Start Date: 04/03/21 Status: Orderedchlorhexidine topical 0.12% liquid 15 mL = 0.018 Gm, By Mouth, 2 times a day, # 900 mL, 0 Refills, Maintenance, 06/26/21 10:58:00 EST, Liquid, [facility], Partial fill upon patient request if the prescription is for a schedule II opioid drug., 15 mL By Mouth 2 times a day,x30 days... Start Date: 06/26/21 Stop Date: 07/26/21 Status: OrderedDepakote 500 mg oral enteric coated tablet 1 tablet = 500 mg, By Mouth, Daily, 0 Refills, Maintenance, 04/03/21 9:42:00 EDT, Partial fill upon patient request if the prescription is for a schedule II opioid drug. Start Date: 04/03/21 Status: OrderedDepakote 500 mg oral enteric coated tablet See Instructions, 2 tablet By Mouth Daily in morning 3 tablets daily at bedtime, 0 Refills, Maintenance, 04/03/21 9:43:00 EDT, EC Tablet, Partial fill upon patient request if the prescription is for a schedule II opioid drug. Start Date: 04/03/21 Status: OrderedDulcolax 10 mg rectal suppository 1 supp = 10 mg, Rectally, Daily, PRN for constipation, # 10 supp, 0 Refills, Maintenance, 09/13/20 13:08:00 EDT, Suppository, [facility], Partial fill upon patient request if the prescription is for a schedule II opioid drug., 170, cm, 09/13/20 1... Start Date: 09/13/20 Status: OrderedFLUoxetine 20 mg oral capsule 40 mg, 2, capsule, By Mouth, Daily, 2 capsules to equal 40 mg daily., # 60 capsule, Refills 5, Tot. Refills 5, Maintenance, 03/08/20 10:37:00 EDT, Route to Pharmacy Electronically, [facility], 170, cm, 02/22/20 20:33:00 EDT, Height, 80.9, kg, ... Start Date: 03/08/20 Status: Orderedlidocaine 5% topical film 1 patch, Topically, Daily, PRN Pain , Mild, remove after 12 hours, # 30 patch, 3 Refills, Maintenance, 08/27/21 16:03:00 EDT, Film, [facility]- [id number], Partial fill upon patient requestif the prescription is for a schedule II opioid d... Start Date: 08/27/21 Status: OrderedLinzess 145 mcg oral capsule 1 capsule = 145 mcg, By Mouth, Daily, # 90 capsule, 4 Refills, Maintenance, 03/26/21 16:53:00 EDT, Capsule, [facility], 168, cm, 03/04/21 13:36:00 EDT, Height, 83.3, kg, 10/24/20 17:15:00 EDT, DryWeight Start Date: 03/26/21 Status: Orderedloratadine 10 mg oral tablet See Instructions, TAKE 1 TABLET BY MOUTH DAILY IN THE MORNING, # 30 tablet, Refills 5, Instructions Replace Required Details, Route to Pharmacy Electronically, [facility], 168, cm, 07/21/21 12:32:00 EST, Height, 85.8, kg, 04/07/21 14:21:00 EDT, D... Start Date: 08/21/21 Status: Orderedmagnesium citrate 8.85% oral liquid 17 grams, By Mouth, Once, Use PRN after four days of no bowel movement. Repeat after 24 hours if no BM. Call PCP after 24 hours if no BM after second dose, # 68 Gm, 5 Refills, Soft Stop, 08/07/21 13:25:00 EST, Liquid, [facility], 17 grams By Mo... Start Date: 08/07/21 Status: OrderedMelatonin 5 mg oral tablet 1 tablet = 5 mg, By Mouth, Daily at bedtime, 0 Refills, Maintenance, 06/21/18 14:05:10 EST Start Date: 06/21/18 Status: OrderedMetamucil 3.4 gm/5.2 gm oral powder for reconstitution = 12 Gm, By Mouth, Daily, 0 Refills, Maintenance, 08/27/21 13:21:00 EDT, Partial fill upon patient request if the prescription is for a schedule II opioid drug. Start Date: 08/27/21 Status: Orderedpantoprazole 40 mg oral delayed release tablet See Instructions, TAKE 1 TABLET BY MOUTH DAILY IN THE MORNING FOR GERD, # 28 tablet, 2 Refills, 168,cm, 09/04/21 15:02:00 EDT, Height, 85.8, kg, 04/07/21 14:21:00 EDT, Dry Weight Start Date: 09/25/21 Status: Orderedpolyethylene glycol 3350 oral powder for reconstitution See Instructions, MIX & DISSOLVE 17GM DOSE IN 4 TO 8 OUNCES OF WATER, DRINK THE SOLUTION ONCE A DAY NEEDED FOR CONSTIPATION, # 510 Gm, 2 Refills, Maintenance, 10/30/20 11:19:00 EDT, [facility], 30, MIX & DISSOLVE 17GM DOSE IN 4 TO 8 OUNCES OF... Start Date: 10/30/20 Status: OrderedSEROquel 200 mg oral tablet 600 mg, 3, tablet, By Mouth, Daily at bedtime, Refills 0, Maintenance, 07/21/21 12:44:00 EST, Partial fill upon patient request if the prescription is for a schedule II opioid drug. Start Date: 07/21/21 Status: Ordered Problem List Condition Effective Dates Status Health Status Informant Allergic rhinitis(Confirmed) Active Bipolar disorder(Confirmed) Active Chronic constipation(Confirmed) Active Developmental disability(Confirmed) Active Intermittent explosive disorder in Active adult(Confirmed) Chronic GERD(Confirmed) Active Injury of right shoulder(Confirmed) 08/15/20 Active Lives in retirement(Confirmed) Active Obesity(Confirmed) Active Pain of right humerus(Confirmed) 08/15/20 Active Annual physical exam(Confirmed) Active Tobacco abuse(Confirmed) Active Umbilical hernia(Confirmed) Active Diagnosis Diagnosis Type Effective Dates Health Status Clinical In formant Service Bipolar disorder Discharge 09/09/21 Diagnosis Social History Social History Type Response Smoking Status Former smoker, quit more padmini n 30 days ago entered on: 03/11/20 Sex Medical Equipment Implanted Date:04/07/21 Target Site:[facility] Description Quantity MRI Company Model MESH VENTRALIGHT ECHO CIR 4.5 - BARD ([id number]) 1 Bard Unknown JENNIFER: No Information Assigning Authority: FDA
--- OUTSIDE RECORDS SUMMARY | 2022-06-26 21:13 | XMS_ITS | Continuity of Care Document ---
:1990 Author Organization [facility] Address [address] [place] [address]- Care Team Providers Name Role Phone Isma IZQUIERDO, Keturah Primary Care Physician Encounter [facility] Date(s): 05/21/22 - 06/20/22 [facility] [address] [id number]- [place] Allergies, Adverse Reactions, Alerts Substance Reaction Severity Status Risperdal unkown Active Immunizations Given and Recorded Vaccine Date Status Refusal Reason SARS-CoV-2 (COVID-19) mRNA-1273 vaccine 06/09/21 Recorded SARS-CoV-2 (COVID-19) mRNA-1273 vaccine 04/17/21 Recorded influenza virus vaccine, inactivated 04/17/21 Recorded influenza virus vaccine, inactivated1 07/03/19 Given 1Result Comment: [facility]# [id number] Medications calcium carbonate 500 mg (200 mg elemental calcium) oral tablet, chewable 500 mg, 1, tablet, By Mouth, Every 4 hours, PRN, Refills 0, Maintenance, Dyspepsia, 04/03/21 9:49:00EDT, Partial fill upon patient request if the prescription is for a schedule II opioid drug. Start Date: 04/03/21 Status: OrderedDepakote 500 mg oral enteric coated tablet 3 tablets, By Mouth, Daily at bedtime, 0 Refills, Maintenance, 04/03/21 9:43:00 EDT, EC Tablet, Partial fill upon patient request if the prescription is for a schedule II opioid drug. Start Date: 04/03/21 Status: Ordereddocusate-senna 50 mg-187 mg oral tablet 2 tablet, By Mouth, Daily at bedtime, # 56 tablet, 3 Refills, Maintenance, 04/15/22 16:25:00 [id number], 28, TAKE 2 TABLETS BY MOUTH DAILY AT BEDTIME, 173, cm, 04/02/22 12:51:00 EDT, Height, 85.8, kg, 04/07/21 14:21:00 EDT, Dry Weight Start Date: 04/15/22 Status: OrderedDulcolax 10 mg rectal suppository 1 supp = 10 mg, Rectally, Daily, PRN for constipation, 1 supp daily as needed for constipation, # 10supp, 0 Refills, Maintenance, 02/03/22 15:20:00 EDT, Suppository, [id number], Partial fill upon patient request if the prescri... Start Date: 02/03/22 Status: OrderedFish Oil 1000 mg oral capsule 1 capsule = 1,000 mg, By Mouth, 2 times a day, may keep in fridge or freezer, # 60 capsule, 5 Refills, Maintenance, 05/05/22 16:21:00 EST, Capsule, [facility]-[id number], Partial fill uponpatient request if the prescription is for a sche... Start Date: 05/05/22 Stop Date: 11/01/22 Status: OrderedFLUoxetine 20 mg oral capsule 20 mg, 1, capsule, By Mouth, Daily, Maintenance, 04/11/22 14:41:00 EDT, Partial fill upon patient request if the prescription is for a schedule II opioid drug. Start Date: 04/11/22 Status: Orderedibuprofen 600 mg oral tablet 600 mg, 1, tablet, By Mouth, Every 6 hours, PRN, # 40 tablet, Refills 0, Maintenance, Pain , Moderate, 04/11/22 14:44:00 EDT, Partial fill upon patient request if the prescription is for a schedule II opioid drug. Start Date: 04/11/22 Status: OrderedLinzess 145 mcg oral capsule 1 capsule, By Mouth, Daily in AM, # 30 capsule, 0 Refills, [facility] [id number], 168, cm, 228:41:00 EDT, Height, 85.8, kg, 04/07/21 14:21:00 EDT, Dry Weight Start Date: 01/08/22 Status: Orderedloratadine 10 mg oral tablet 1, tablet, By Mouth, Daily in AM, # 28 tablet, Refills 5, Maintenance, 06/10/22 23:46:00 EST, Route to Pharmacy Electronically, [place] [id number], 173, cm, 04/29/22 8:45:00 EST, Height, 85.8, kg, 04/07/21 14:21:00 EDT, Dry Weight Start Date: 06/10/22 Status: OrderedLORazepam 1 mg oral tablet 1 tablet = 1 mg, By Mouth, 4 times a day, Maintenance, 04/11/22 14:37:00 EDT, Partial fill upon patient request if the prescription is for a schedule II opioid drug. Start Date: 04/11/22 Status: Orderedmelatonin 3 mg oral tablet 2 tablet = 6 mg, By Mouth, Daily at bedtime, PRN for insomnia, Maintenance, 04/11/22 14:45:00 EDT, Tablet, Partial fill upon patient request if the prescription is for a schedule II opioid drug. Start Date: 04/11/22 Status: OrderedMetamucil 3.4 gm/5.2 gm oral powder for reconstitution = 12 Gm, By Mouth, Daily, 0 Refills, Maintenance, 08/27/21 13:21:00 EDT, Partial fill upon patient request if the prescription is for a schedule II opioid drug. Start Date: 08/27/21 Status: Orderedomeprazole 20 mg oral enteric coated capsule See Instructions, TAKE 1 CAPSULE BY MOUTH EVERY MORNING 30 MINUTES BEFORE MEAL, # 28 capsule, 2 Refills, Maintenance, 05/14/22 10:42:00 EST, [facility] [id number], 173, cm, 04/29/22 8:45:00 EST, Height, 85.8, kg, 04/07/21 14:21:00 EDT, Dry Weight Start Date: 05/14/22 Status: OrderedQUEtiapine 300 mg oral tablet 1 tablet = 300 mg, By Mouth, 2 times a day, Maintenance, 04/11/22 14:42:00 EDT, Partial fill upon patient request if the prescription is for a schedule II opioid drug. Start Date: 04/11/22 Status: OrderedSEROquel 200 mg oral tablet 2 tablets, By Mouth, Daily at bedtime, Refills 0, Maintenance, 07/21/21 12:44:00 EST, Partial fill upon patient request if the prescription is for a schedule II opioid drug. Start Date: 07/21/21 Status: OrderedVoltaren 1% topical gel 1 application, Topically, 4 times a day, PRN for pain, # 100 Gm, 0 Refills, Maintenance, 04/02/22 13:48:00 EDT, Gel, [id number], Partial fill upon patient request if the prescription is for a schedule II opioid drug., 1 applica... Start Date: 04/02/22 Status: Ordered Problem List Condition Confirmation Course Effective Dates Status Health I nformant Status Allergic rhinitis Confirmed Active Bipolar disorder Confirmed Active Chronic constipation Confirmed Active Developmental Confirmed Active disability Intermittent Confirmed Active explosive disorder in adult Chronic GERD Confirmed Active Injury of right Confirmed 08/15/20 Active shoulder Lives in senior care Confirmed Active Obese class I Confirmed Active Obesity Confirmed Active Pain of right Confirmed 08/15/20 Active humerus Annual physical exam Confirmed Active Tobacco abuse Confirmed Active Umbilical hernia Confirmed Active Social History Social History Type Response Smoking Status Former smoker, quit more padmini n 30 days ago; Other: quit 1 year ago; entered on: 04/29/22 Sex Implantable Device List Procedure Provider Procedure Date Device Type Site Repair Hernia Umbilical Jordan WHITE, Fifi Hernández 04/07/21 Unknown [employer] Laparoscopic Mes Device Serial Lot or Manufacturing Expiration Distinct MRI Implan table Assigning Identifier Number Batch Date Date Identification Safety Status Authority Number Code Unknown Unknown Unknown Unknown 01/01/23 Unknown Unknown Active Unknown Patient Care team information Care Team PersonnelName: Keturah Ashby NP Position: [facility] PCO Associate Professional Member Role: PCP Address: Address: [address] [place] [address] [place] [address]- Care Team Related PersonsName: HIRAL EGAN Address: [place] [address] Name: DENISHA EGAN Address: [place] [address] Name: ELLA MUNGUIA Address: home [address] [place] [id number] Name: HIEN ANGELES Address: home UNKNOWN
--- OUTSIDE RECORDS SUMMARY | 2022-06-26 21:13 | XMS_ITS | Continuity of Care Document ---
:1990 Author Organization [facility] Address [address] [place] [address]- Care Team Providers Name Role Phone Diego Ibarra Primary Care Physician Encounter [facility] Date(s): 03/27/20 - 03/27/[address] [address]- [facility] Discharge Disposition: A-D/C Home Attending Physician: Zachary Olson MD Admitting Physician: Zachary Olson MD Referring Physician: Not on Staff, Referring MD Allergies, Adverse Reactions, Alerts Substance Reaction Severity Status Risperdal Active Immunizations Given and Recorded Vaccine Date Status Refusal Reason influenza virus vaccine, inactivated1 07/03/19 Given 1Result Comment: [facility]# 67805-091-46 Medications benztropine 1 mg oral tablet 1 mg, 1, tablet, By Mouth, 2 times a day, # 60 tablet, Refills 3, Tot. Refills 3, Maintenance, 11/21/18 9:28:36 EDT, Route to Pharmacy Electronically, [id number], [facility]/pharmacy#[id number] Start Date: 11/21/18 Stop Date: 03/21/19 Status: OrderedcloNIDine 0.1 mg oral tablet 0.1 mg, 1, tablet, By Mouth, 3 times a day, Refills 0, Maintenance, 02/02/20 11:32:00 EDT Start Date: 02/02/20 Status: Ordereddivalproex sodium 500 mg oral enteric coated tablet 1 tablet = 500 mg, By Mouth, Daily at bedtime, # 90 tablet, 0 Refills, Maintenance, 02/02/20 11:33:00 EDT, EC Tablet Start Date: 02/02/20 Status: Ordereddocusate sodium 100 mg oral capsule 1 capsule = 100 mg, By Mouth, 2 times a day, PRN for constipation, # 60 capsule, 2 Refills, Maintenance, 03/08/20 14:59:00 EDT, Capsule, [facility], To replace 50 mg capsules, 170, cm, 02/22/20 20:33:00 EDT, Height, 80.9, kg, 02/29/20 19:49:00 ED... Start Date: 03/08/20 Status: OrderedFLUoxetine 20 mg oral capsule 40 mg, 2, capsule, By Mouth, Daily, 2 capsules to equal 40 mg daily., # 60 capsule, Refills 5, Tot. Refills 5, Maintenance, 03/08/20 10:37:00 EDT, Route to Pharmacy Electronically, [facility], 170, cm, 02/22/20 20:33:00 EDT, Height, 80.9, kg, ... Start Date: 03/08/20 Status: OrderedhydrOXYzine hydrochloride 50 mg oral tablet 1 tablet = 50 mg, By Mouth, Every 4 hours, PRN for anxiety, # 40 tablet, 0 Refills, Maintenance, 02/02/20 11:36:00 EDT, Tablet Start Date: 02/02/20 Status: OrderedLinzess 145 mcg oral capsule 1 capsule = 145 mcg, By Mouth, Daily, # 90 capsule, 4 Refills, Maintenance, 09/27/19 14:06:00 EDT, Capsule, [facility] #[id number], 169, cm, 07/03/19 16:03:00 EST, Height Start Date: 09/27/19 Status: Orderedloratadine 10 mg oral tablet 10 mg, 1, tablet, By Mouth, Daily, # 30 tablet, Refills 6, Tot. Refills 6, Maintenance, 03/27/20 10:07:00 EDT, Route to Pharmacy Electronically, [facility], 170, cm, 02/22/20 20:33:00 EDT, Height,80.9, kg, 02/29/20 19:49:00 EDT, Dry Weight Start Date: 03/27/20 Stop Date: 10/23/20 Status: Orderedloratadine 10 mg oral tablet 10 mg, 1, tablet, By Mouth, Daily in AM, Refills 0, Maintenance, 02/02/20 11:37:00 EDT Start Date: 02/02/20 Status: Orderedmagnesium citrate 8.85% oral liquid 300 mL = 17.45 Gm, By Mouth, Once, Use PRN after four days of no bowel movement. Repeat after 24 horus if no BM. Call PCP after 24 hours if no BM after second dose, # 300 mL, 5 Refills, Soft Stop, 03/21/20 14:01:00 EDT, Liquid, [facility], 300... Start Date: 03/21/20 Status: OrderedMelatonin 5 mg oral tablet 1 tablet = 5 mg, By Mouth, Daily at bedtime, 0 Refills, Maintenance, 06/21/18 14:05:10 EST Start Date: 06/21/18 Status: OrderedMiraLax oral powder for reconstitution = 17 Gm, By Mouth, Daily, for 30 days, dissolve in water before taking As needed for constipation, #510 Gm, 2 Refills, Acute 05/02/20 11:01:00 EST, 02/02/20 11:01:00 EDT, REC Powder, [facility], 17 Gm By Mouth Daily,x30 days,Instr:dissolve in w... Start Date: 02/02/20 Stop Date: 05/02/20 Status: OrderedMultivitamin Daily, 0 Refills, Maintenance, 06/21/18 14:04:37 EST Start Date: 06/21/18 Status: OrderedNicotine 7 mg/24 hour patch 1 patch, Topically, Daily, # 30 patch, 1 Refills, Maintenance, 02/02/20 11:10:00 EDT, Patch, [facility], 1 patch Topically Daily, 169, cm, 02/02/20 10:48:00 EDT, Height Start Date: 02/02/20 Status: Orderedolanzapine 15 mg oral tablet 1 tablet = 15 mg, By Mouth, 2 times a day, # 60 tablet, 3 Refills, Maintenance, 11/21/18 9:27:20 EDT, Tablet Start Date: 11/21/18 Status: Orderedpantoprazole 40 mg oral delayed release tablet 1 tablet = 40 mg, By Mouth, Daily, # 30 tablet, 5 Refills, Maintenance, 03/08/20 10:37:00 EDT, EC Tablet, 170, cm, 02/22/20 20:33:00 EDT, Height, 80.9, kg, 02/29/20 19:49:00 EDT, Dry Weight Start Date: 03/08/20 Status: OrderedZyPREXA 15 mg oral tablet 1 tablet = 15 mg, By Mouth, 2 times a day, # 30 tablet, 0 Refills, Maintenance, 02/02/20 11:38:00 EDT, Tablet Start Date: 02/02/20 Status: Ordered Problem List Condition Effective Dates Status Health Status Informant Allergic rhinitis(Confirmed) Active Chronic constipation(Confirmed) Active Developmental disability(Confirmed) Active Intermittent explosive disorder in Active adult(Confirmed) Chronic GERD(Confirmed) Active Annual physical exam(Confirmed) Active Tobacco abuse(Confirmed) Active Vital Signs Most recent to oldest [Reference Range]: 1 2 Height 170 cm (03/27/20 6:25 PM) Weight 83.1 kg (03/27/20 6:25 PM) Oxygen Saturation [94-100 %] 100 % 98 % (03/27/20 7:50 PM) (03/27/20 6:25 PM) Pulse Rate [55-90 bpm] 87 bpm 93 bpm (03/27/20 7:50 PM) *H* (03/27/20 6:25 PM) Blood Pressure [90-138/55-84 mm Hg] 114/84 mm Hg 117/ 82 mm Hg (03/27/20 7:50 PM) (03/27/20 6:25 PM) Respiratory Rate [16-30 br/min] 15 br/min 16 br/mi n *L* (03/27/20 6:25 PM) (03/27/20 7:50 PM) Temperature [96.8-100.4 DegF] 98.9 DegF (03/27/20 6:25 PM) Mode of Delivery (Oxygen) Room air Room air (03/27/20 7:50 PM) (03/27/20 6:25 PM) Blood pressure sites Arm, left Arm, left (03/27/20 7:50 PM) (03/27/20 6:25 PM) Temperature Route Tympanic (03/27/20 6:25 PM) Dry Weight 83.1 kg (03/27/20 6:25 PM) Weight Obtained Via Standing scale (03/27/20 6:25 PM) Dry Weight Obtained Via Standing scale (03/27/20 6:25 PM) Social History Social History Type Response Smoking Status Former smoker, quit more padmini n 30 days ago entered on: 03/11/20 Sex
--- OUTSIDE RECORDS SUMMARY | 2022-06-26 21:13 | XMS_ITS | Continuity of Care Document ---
:1990 Author Organization [facility] Address [address] [place] [address]- Care Team Providers Name Role Phone Isma IZQUIERDO, Keturah Primary Care Physician Encounter [facility] [id number] Date(s): 07/17/21 - 08/16/21 [facility] [address] [phone]- Allergies, Adverse Reactions, Alerts Substance Reaction Severity Status Risperdal unkown Active Immunizations Given and Recorded Vaccine Date Status Refusal Reason influenza virus vaccine, inactivated1 07/03/19 Given 1Result Comment: [facility]# [id number] Medications calcium carbonate 500 mg (200 mg [...] OrderedDepakote 500 mg oral enteric coated tablet 2 tablet = 1,000 mg, By Mouth, Daily at bedtime, # 60 tablet, 0 Refills, Maintenance, 04/03/21 9:43:00 EDT, EC Tablet, Partial fill upon patient request if the prescription is for a schedule II opioid drug. Start Date: 04/03/21 Status: OrderedDulcolax 10 mg rectal suppository 1 supp = 10 mg, Rectally, Daily, PRN for constipation, # 10 supp, 0 Refills, Maintenance, 09/13/20 13:08:00 EDT, Suppository, [facility], Partial fill upon patient request if the prescription is for a schedule II opioid drug., 170, cm, 09/13/20 1... Start Date: 09/13/20 Status: OrderedFLUoxetine 20 mg oral capsule 40 mg, 2, capsule, By Mouth, Daily, 2 capsules to equal 40 mg daily., # 60 capsule, Refills 5, Tot. Refills 5, Maintenance, 03/08/20 10:37:00 EDT, Route to Pharmacy Electronically, [facility], 170, cm, 02/22/20 20:33:00 EDT, Height, 80.9, kg, ... Start Date: 03/08/20 Status: Orderedibuprofen 600 mg oral tablet 600 mg, By Mouth, Every 6 hours, PRN, for 30 days, # 120 tablet, Refills 0, Tot. Refills 0, Acute 09/05/21 16:33:00 EDT, Pain , Moderate, 08/06/21 16:33:00 EST, [facility], Partial fill upon patient request if th... Start Date: 08/06/21 Stop Date: 09/05/21 Status: OrderedLinzess 145 mcg oral capsule 1 capsule = 145 mcg, By Mouth, Daily, # 90 capsule, 4 Refills, Maintenance, 03/26/21 16:53:00 EDT, Capsule, [facility], 168, cm, 03/04/21 13:36:00 EDT, Height, 83.3, kg, 10/24/20 17:15:00 EDT, DryWeight Start Date: 03/26/21 Status: Orderedloratadine 10 mg oral tablet See Instructions, TAKE 1 TABLET BY MOUTH DAILY, # 30 tablet, Refills 5, Tot. Refills 5, Maintenance,03/14/21 11:21:00 EDT, Instructions Replace Required Details, Route to Pharmacy Electronically, [facility], 168, cm, 03/04/21 13:36:00 EDT, [facility]... Start Date: 03/14/21 Status: Orderedmagnesium citrate 8.85% oral liquid 17 grams, By Mouth, Once, Use PRN after four days of no bowel movement. Repeat after 24 hours if no BM. Call PCP after 24 hours if no BM after second dose, # 68 Gm, 5 Refills, Soft Stop, 08/07/21 13:25:00 EST, Liquid, [facility], 17 grams By Mo... Start Date: 08/07/21 Status: OrderedMelatonin 5 mg oral tablet 1 tablet = 5 mg, By Mouth, Daily at bedtime, 0 Refills, Maintenance, 06/21/18 14:05:10 EST Start Date: 06/21/18 Status: Orderedpantoprazole 40 mg oral delayed release tablet See Instructions, TAKE 1 TABLET BY MOUTH DAILY FOR GERD, # 30 tablet, 2 Refills, Maintenance, 07/01/21 11:06:00 EST, 168, cm, 06/26/21 13:19:00 EST, Height, 85.8, kg, 04/07/21 14:21:00 EDT, Dry Weight Start Date: 07/01/21 Status: Orderedpolyethylene glycol 3350 oral powder for reconstitution See Instructions, MIX & DISSOLVE 17GM DOSE IN 4 TO 8 OUNCES OF WATER, DRINK THE SOLUTION ONCE A DAY NEEDED FOR CONSTIPATION, # 510 Gm, 2 Refills, Maintenance, 10/30/20 11:19:00 EDT, [facility], 30, MIX & DISSOLVE 17GM DOSE IN 4 TO 8 OUNCES OF... Start Date: 10/30/20 Status: OrderedSEROquel 200 mg oral tablet 200 mg, 1, tablet, By Mouth, Daily at bedtime, Refills [...] of right shoulder(Confirmed) 08/15/20 Active Lives in nursing home(Confirmed) Active Obesity(Confirmed) Active Pain of right humerus(Confirmed) 08/15/20 Active Annual physical exam(Confirmed) Active Tobacco abuse(Confirmed) Active Umbilical hernia(Confirmed) Active Social History Social History Type Response Smoking Status Former smoker, quit more padmini n 30 days ago entered on: 03/11/20 Sex Medical Equipment Implanted Date:04/07/21 Target Site:[facility] Description Quantity MRI Company Model MESH VENTRALIGHT ECHO CIR 4.5 - BARD ([id number]) 1 Bard Unknown JENNIFER: No Information Assigning Authority: FDA
--- OUTSIDE RECORDS SUMMARY | 2022-06-26 21:13 | XMS_ITS | Continuity of Care Document ---
:1990 Author Organization [facility] Address [address] [place] [address]- Care Team Providers Name Role Phone Diego Ibarra Primary Care Physician Encounter [facility] Date(s): 09/12/20 - 10/12/20 [facility] [address] [place] [address]- Allergies, Adverse Reactions, Alerts Substance Reaction Severity Status Risperdal Active Immunizations Given and Recorded Vaccine Date Status Refusal Reason influenza virus vaccine, inactivated1 07/03/19 Given 1Result Comment: [facility]# [id number] Medications benztropine 1 mg oral tablet 1 mg, 1, tablet, By Mouth, 2 times a day, # 60 tablet, Refills 3, Tot. Refills 3, Maintenance, 11/21/18 9:28:36 EDT, Route to Pharmacy Electronically, [id number], [facility]/pharmacy#[id number] Start Date: 11/21/18 Stop Date: 03/21/19 Status: OrderedcloNIDine 0.1 mg oral tablet 0.1 mg, 1, tablet, By Mouth, 3 times a day, Refills 0, Maintenance, 02/02/20 11:32:00 EDT Start Date: 02/02/20 Status: Ordereddivalproex sodium 500 mg oral enteric coated tablet 1 tablet = 500 mg, By Mouth, 1 tablet QAM 2 tablets QHS, # 90 tablet, 0 Refills, Maintenance, 02/02/20 11:33:00 EDT, EC Tablet Start Date: 02/02/20 Status: Ordereddocusate sodium 100 mg oral capsule 1 capsule = 100 mg, By Mouth, 2 times a day, PRN for constipation, # 60 capsule, 5 Refills, Maintenance, 06/04/20 9:18:00 EST, Capsule, [facility], To replace 50 mg capsules, 170, cm, 04/01/20 14:07:00 EDT, Height, 83.1, kg, 03/27/20 18:25:00 EDT... Start Date: 06/04/20 Status: OrderedDulcolax 10 mg rectal suppository 1 supp = 10 mg, Rectally, Daily, PRN for constipation, # 10 supp, 0 Refills, Maintenance, 09/13/20 13:08:00 EDT, Suppository, [facility], Partial fill upon patient request if the prescription is for a schedule II opioid drug., 170, cm, 09/13/20 1... Start Date: 09/13/20 Status: OrderedFLUoxetine 20 mg oral capsule 40 mg, 2, capsule, By Mouth, Daily, 2 capsules to equal 40 mg daily., # 60 capsule, Refills 5, Tot. Refills 5, Maintenance, 03/08/20 10:37:00 EDT, Route to Pharmacy Electronically, [facility], 170, cm, 02/22/20 20:33:00 EDT, Height, [...] Daily, # 90 capsule, 4 Refills, Maintenance, 09/19/20 13:00:00 EDT, Capsule, [id number], 170, cm, 09/13/20 15:29:00 EDT, Height, 88.3, kg, 09/13/20 15:29:00 EDT, Dry Weight Start Date: 09/19/20 Status: Orderedloratadine 10 mg oral tablet 10 mg, 1, tablet, By Mouth, Daily, for 30 days, # 30 tablet, Refills 6, Tot. Refills 6, Hard Stop 10/23/20 10:07:00 EDT, 03/27/20 10:07:00 EDT, Route to Pharmacy Electronically, [facility], 170, cm, 02/22/20 20:33:00 EDT, Height, 80.9, kg, ... Start Date: 03/27/20 Stop Date: 10/23/20 Status: Orderedloratadine 10 mg oral tablet 10 mg, 1, tablet, By Mouth, Daily in AM, Refills 0, Maintenance, 02/02/20 11:37:00 EDT Start Date: 02/02/20 Status: Orderedloratadine 10 mg oral tablet 10 mg, 1, tablet, By Mouth, Daily, # 30 tablet, Refills 5, Tot. Refills 5, Maintenance, 10/23/20 10:07:00 EDT, Route to Pharmacy Electronically, [facility], 170, cm, 09/02/20 15:24:00 EDT, Height,86.6, kg, 08/15/20 17:31:00 EST, Dry Weight Start Date: 10/23/20 Stop Date: 04/21/21 Status: Orderedmagnesium citrate 8.85% oral liquid 300 mL = 17.45 Gm, By Mouth, Once, Use PRN after four days of no bowel movement. Repeat after 24 horus if no BM. Call PCP after 24 hours if no BM after second dose, # 300 mL, 5 Refills, Soft Stop, 03/21/20 14:01:00 EDT, Liquid, [facility], 300... Start Date: 03/21/20 Status: Orderedmagnesium citrate 8.85% oral liquid 150 mL = 8.725 Gm, By Mouth, Once, # 300 mL, 0 Refills, Soft Stop, 09/20/20 15:27:00 EDT, Liquid, [facility] #[id number], Partial fill upon patient request if the prescription is for a schedule IIopioid drug., 150 mL By Mouth Once, 170, cm, 09/05... Start Date: 09/20/20 Status: OrderedMelatonin 5 mg oral tablet 1 tablet = 5 mg, By Mouth, Daily at bedtime, 0 Refills, Maintenance, 06/21/18 14:05:10 EST Start Date: 06/21/18 Status: OrderedMetamucil 400 mg oral capsule 3 capsule = 1,200 mg, By Mouth, 3 times a day, PRN as needed for constipation, with at least 8 ounces of water, # 160 capsule, 3 Refills, Maintenance, 09/04/20 8:32:00 EDT, Capsule, Partial fill upon patient request if the prescription is for a schedu... Start Date: 09/04/20 Status: OrderedMultivitamin Daily, 0 Refills, Maintenance, 06/21/18 14:04:37 EST Start Date: 06/21/18 Status: OrderedNicotine 7 mg/24 hour patch 1 patch, Topically, Daily, [facility] [employer]., # 28 patch, 1 Refills, Acute 08/03/23 11:00:00EST, 08/02/20 8:59:00 EST, [facility], 28, 1 patch Topically Daily,Instr:[employer]., 170, cm, 06/20/20 10:22:00 EST, Height, 85.5,... Start Date: 08/02/20 Stop Date: 08/03/23 Status: Orderedolanzapine 15 mg oral tablet 1 tablet = 15 mg, By Mouth, 2 times a day, # 60 tablet, 3 Refills, Maintenance, 11/21/18 9:27:20 EDT, Tablet Start Date: 11/21/18 Status: Orderedpantoprazole 40 mg oral delayed release tablet 1 tablet = 40 mg, By Mouth, Daily, # 30 tablet, 2 Refills, Maintenance, 09/06/20 12:26:00 EDT, EC Tablet, 170, cm, 09/04/20 8:04:00 EDT, Height, 86.6, kg, 08/15/20 17:31:00 EST, Dry Weight Start Date: 09/06/20 Status: Orderedpolyethylene glycol 3350 oral powder for reconstitution See Instructions, MIX & DISSOLVE 17GM DOSE IN 4 TO 8 OUNCES OF WATER, DRINK THE SOLUTION ONCE A DAY NEEDED FOR CONSTIPATION, # 510 Gm, 2 Refills, Physician Stop 12/19/20 16:38:00 EDT, 09/17/20 16:38:00 EDT, [facility], 30, MIX & DISSOLVE 17GM... Start Date: 09/17/20 Stop Date: 12/19/20 Status: OrderedZyPREXA 15 mg oral tablet 1 [...] Active Injury of right shoulder(Confirmed) 08/15/20 Active Pain of right humerus(Confirmed) 08/15/20 Active Annual physical exam(Confirmed) Active Tobacco abuse(Confirmed) Active Social History Social History Type Response Smoking Status Former smoker, quit more padmini n 30 days ago entered on: 03/11/20 Sex
--- OUTSIDE RECORDS SUMMARY | 2022-06-26 21:13 | XMS_ITS | Continuity of Care Document ---
:1990 Author Organization [facility] Address [address] [place] [id number]- Care Team Providers Name Role Phone Isma IZQUIERDO, Keturah Primary Care Physician [facility]counter [facility] Date(s): 04/09/21 - 05/09/21 [facility] [address] [place], [place] [id number]- Attending Physician: Bel Galloway Admitting Physician: Bel Galloway Referring Physician: AdmtrBel Allergies, Adverse Reactions, Alerts Substance Reaction Severity Status Risperdal unkown Active Immunizations Given and Recorded Vaccine Date Status Refusal Reason influenza virus vaccine, inactivated1 07/03/19 Given 1Result Comment: [facility]# [id number] Medications calcium carbonate 500 mg (200 mg elemental calcium) oral tablet, chewable 500 mg, 1, tablet, By Mouth, Every 4 hours, PRN, Refills 0, Maintenance, Dyspepsia, 04/03/21 9:49:00EDT, Partial fill upon patient request if the prescription is for a schedule II opioid drug. Start Date: 04/03/21 Status: OrderedcloNIDine 0.1 mg oral tablet 0.1 mg, 1, tablet, By Mouth, 3 times a day, Refills 0, Maintenance, 02/02/20 11:32:00 EDT Start Date: 02/02/20 Status: OrderedDepakote 500 mg oral enteric coated [...] 03/08/20 10:37:00 EDT, Route to Pharmacy Electronically, [facility], 170, cm, 02/22/20 20:33:00 EDT, Height, 80.9, kg, ... Start Date: 03/08/20 Status: OrderedhydrOXYzine hydrochloride 50 mg oral tablet 1 tablet = 50 mg, By Mouth, Every 4 hours, PRN for anxiety, # 40 tablet, 0 Refills, Maintenance, 02/02/20 11:36:00 EDT, Tablet Start Date: 02/02/20 Status: OrderedIbuprofen 600 mg, By Mouth, Every 6 hours, PRN, Refills 0, Maintenance, Pain , Moderate, 03/04/21 10:07:00 EDT, Partial fill upon patient request if the prescription is for a schedule II opioid drug. Start Date: 03/04/21 Status: OrderedLinzess 145 mcg oral capsule 1 capsule = 145 mcg, By Mouth, Daily, # 90 capsule, 4 Refills, Maintenance, 03/26/21 16:53:00 EDT, Capsule, [facility], 168, cm, 03/04/21 13:36:00 EDT, Height, 83.3, kg, 10/24/20 17:15:00 EDT, DryWeight Start Date: 03/26/21 Status: Orderedloratadine 10 mg oral tablet See Instructions, TAKE 1 TABLET BY MOUTH DAILY, # 30 tablet, Refills 5, Tot. Refills 5, Maintenance,03/14/21 11:21:00 EDT, Instructions Replace Required Details, Route to Pharmacy Electronically, [facility], 168, cm, 03/04/21 13:36:00 EDT, .. Start Date: 03/14/21 Status: Orderedmagnesium citrate 8.85% oral liquid 300 mL = 17.45 Gm, By Mouth, Once, Use PRN after four days of no bowel movement. Repeat after 24 horus if no BM. Call PCP after 24 hours if no BM after second dose, # 300 mL, 5 Refills, Soft Stop, 12/13/20 15:34:00 EDT, Liquid, [facility], 300... Start Date: 12/13/20 Status: OrderedMelatonin 5 mg oral tablet 1 tablet = 5 mg, By Mouth, Daily at bedtime, 0 Refills, Maintenance, 06/21/18 14:05:10 EST Start Date: 06/21/18 Status: OrderedMiraLax oral powder for reconstitution = 17 Gm, By Mouth, 2 times a day, for 30 days, dissolve in water before taking, # 1,020 Gm, 6 Refills, Acute 07/09/21 15:39:00 EST, 12/11/20 15:39:00 EDT, REC Powder, [facility], Partial fill uponpatient request if the prescription is for a sche... Start Date: 12/11/20 Stop Date: 07/09/21 Status: Orderedolanzapine 10 mg oral tablet 10 mg, 1, tablet, By Mouth, Daily, Refills 0, Maintenance, 04/03/21 12:28:00 EDT, Partial fill upon patient request if the prescription is for a schedule II opioid drug. Start Date: 04/03/21 Status: Orderedpantoprazole 40 mg oral delayed release tablet 1 tablet = 40 mg, By Mouth, Daily, # 30 tablet, 6 Refills, Maintenance, 10/30/20 11:18:00 EDT, EC Tablet, 168, cm, 10/30/20 11:05:00 EDT, Height, 83.3, kg, 10/24/20 17:15:00 EDT, Dry Weight Start Date: 10/30/20 Status: Orderedpolyethylene glycol 3350 oral powder for reconstitution See Instructions, MIX & DISSOLVE 17GM DOSE IN 4 TO 8 OUNCES OF WATER, DRINK THE SOLUTION ONCE A DAY NEEDED FOR CONSTIPATION, # 510 Gm, 2 Refills, Maintenance, 10/30/20 11:19:00 EDT, [facility], 30, MIX & DISSOLVE 17GM DOSE IN 4 TO 8 OUNCES OF... Start Date: 10/30/20 Status: OrderedSenna 8.6 mg oral tablet 8.6 mg, 1, tablet, By Mouth, Daily at bedtime, for 30 days, # 30 tablet, Refills 6, Tot. Refills 6, Acute, 07/09/21 15:40:00 EST, 12/11/20 15:40:00 EDT, Route to Pharmacy Electronically, [facility], Partial fill upon patient request if the prescr... Start Date: 12/11/20 Stop Date: 07/09/21 Status: OrderedSeroquel 50 mg, By Mouth, 2 times a day, Refills 0, Maintenance, 04/03/21 12:19:00 EDT, Partial fill upon patient request if the prescription is for a schedule II opioid drug. Start Date: 04/03/21 Status: Ordered Problem List Condition Effective Dates Status Health Status Informant Allergic rhinitis(Confirmed) Active Bipolar disorder(Confirmed) Active Chronic constipation(Confirmed) Active Developmental disability(Confirmed) Active Intermittent explosive disorder in Active adult(Confirmed) Chronic GERD(Confirmed) Active Injury of right shoulder(Confirmed) 08/15/20 Active Lives in [facility](Confirmed) Active Obesity(Confirmed) Active Pain of right humerus(Confirmed) 08/15/20 Active Annual physical exam(Confirmed) Active Tobacco abuse(Confirmed) Active Umbilical hernia(Confirmed) Active Social History Social History Type Response Smoking Status Former smoker, quit more padmini n 30 days ago entered on: 03/11/20 Sex Medical Equipment Implanted Date:04/07/21 Target Site:[employer] Description Quantity MRI Company Model MESH VENTRALIGHT ECHO CIR 4.5 - BARD ([id number]) 1 Bard Unknown JENNIFER: No Information Assigning Authority: FDA
--- OUTSIDE RECORDS SUMMARY | 2022-06-26 21:14 | XMS_ITS | Continuity of Care Document ---
:1990 Author Organization [facility] Address [address] [place] [address]- Care Team Providers Name Role Phone Isma IZQUIERDO, Keturah Primary Care Physician Encounter [facility] Date(s): 03/25/22 - 04/24/22 [facility] [address] [place] [id number]- [place] Allergies, Adverse Reactions, Alerts Substance Reaction Severity Status Risperdal unkown Active Immunizations Given and Recorded Vaccine Date Status Refusal Reason SARS-CoV-2 (COVID-19) mRNA-1273 vaccine 06/09/21 Recorded SARS-CoV-2 (COVID-19) mRNA-1273 vaccine 04/17/21 Recorded influenza virus vaccine, inactivated 04/17/21 Recorded influenza virus vaccine, inactivated1 07/03/19 Given 1Result Comment: [facility]# [id number] Medications benzonatate 100 mg oral capsule 1 capsule = 100 mg, By Mouth, Every 12 hours, PRN Cough, Maintenance, 04/11/22 14:43:00 EDT, Partialfill upon patient request if the prescription is for a schedule II opioid drug. Start Date: 04/11/22 Status: Orderedcalcium carbonate 500 mg (200 mg elemental calcium) [...] 56 tablet, 3 Refills, Maintenance, 04/15/22 16:25:00 EST, [id number], 28, TAKE 2 TABLETS BY MOUTH DAILY AT BEDTIME, 173, cm, 04/02/22 12:51:00 EDT, Height, 85.8, kg, 04/07/21 14:21:00 EDT, Dry Weight Start Date: 04/15/22 Status: OrderedDulcolax 10 mg rectal suppository 1 supp = 10 mg, Rectally, Daily, PRN for constipation, 1 supp daily as needed for constipation, # 10supp, 0 Refills, Maintenance, 02/03/22 15:20:00 EDT, Suppository, [facility]-[id number], Partial fill upon patient request if the prescri... Start Date: 02/03/22 Status: OrderedFLUoxetine 20 mg oral capsule 20 [...] in AM, # 30 capsule, 0 Refills, [facility] [id number], 168, cm, :41:00 EDT, Height, 85.8, kg, 04/07/21 14:21:00 EDT, Dry Weight Start Date: 01/08/22 Status: Orderedloratadine 10 mg oral tablet See Instructions, TAKE 1 TABLET BY MOUTH DAILY IN THE MORNING, # 30 tablet, Refills 5, Tot. Refills 5, 12/24/21 14:55:00 EDT, Instructions Replace Required Details, Route to Pharmacy Electronically, [facility]-[id number], 168, cm, ... Start Date: 12/24/21 Status: OrderedLORazepam 1 mg oral tablet 1 [...] Orderedomeprazole 20 mg oral enteric coated capsule 1 capsule = 20 mg, By Mouth, Daily, # 30 capsule, 5 Refills, Maintenance, 12/05/21 16:01:00 EDT, EC Capsule, [facility]-[id number], Partial fill upon patient request if the prescription isfor a schedule II opioid drug., 168, cm, 11/20/21... Start Date: 12/05/21 Status: Orderedpolyethylene glycol 3350 oral powder for reconstitution See Instructions, MIX & DISSOLVE 17GM DOSE IN 4 TO 8 OUNCES OF WATER, DRINK THE SOLUTION ONCE A DAY NEEDED FOR CONSTIPATION, # 510 Gm, 2 Refills, Maintenance, 02/04/22 15:24:00 EDT, [facility]-[id number], 30, MIX & DISSOLVE 17GM DOSE I... Start Date: 02/04/22 Status: Orderedpropranolol 80 mg oral tablet 1 tablet = 80 mg, By Mouth, Daily, Maintenance, 04/11/22 14:40:00 EDT, Partial fill upon patient request if the prescription is for a schedule II opioid drug. Start Date: 04/11/22 Status: OrderedQUEtiapine 300 mg oral tablet 1 [...] 0 Refills, Maintenance, 04/02/22 13:48:00 EDT, Gel, [facility]-23765, Partial fill upon patient request if the [...] right Confirmed 08/15/20 Active shoulder Lives in assisted Confirmed Active Obesity Confirmed Active Pain of right Confirmed 08/15/20 Active humerus Annual physical exam Confirmed Active Tobacco abuse Confirmed Active Umbilical hernia Confirmed Active Social History Social History Type Response Smoking Status Former smoker, quit more padmini n 30 days ago entered on: 03/11/20 Sex Implantable Device List Procedure Provider Procedure Date Device Type Site Repair Hernia Umbilical Fifi Ortega MD 04/07/21 Unknown Umbilicus Laparoscopic Mes Device Serial Lot or Manufacturing Expiration Distinct MRI Implan table Assigning Identifier Number Batch Date Date Identification Safety Status Authority Number Code Unknown Unknown Unknown Unknown 01/01/23 Unknown Unknown Active Unknown Patient Care team information Care Team PersonnelName: Keturah Ashby NP Position: [facility] Associate Professional Member Role: PCP Address: Address: [address] [place] [id number]- Care Team Related PersonsName: HIRAL EGAN Address: [facility] [place] [facility] [place] [address] UM Name: DENISHA EGAN Address: home [place], [place] Name: ELLA MUNGUIA Address: home [address] [place] [address], [place] [address] Name: HIEN ANGELES Address: home UNKNOWN UM
--- OUTSIDE RECORDS SUMMARY | 2022-06-26 21:14 | XMS_ITS | Continuity of Care Document ---
:1990 Author Organization [facility] Address [address] [place] [address]- Care Team Providers Name Role Phone Isma IZQUIERDO, Keturah Primary Care Physician Encounter [facility] Date(s): 04/02/22 - 04/09/22 [facility] [address] [place] [address]- Encounter Diagnosis Enuresis (Discharge Diagnosis) - 04/02/22 Attending Physician: Not on Staff, Attending MD Allergies, Adverse Reactions, Alerts Substance Reaction Severity Status Risperdal unkown Active Immunizations Given and Recorded Vaccine Date Status Refusal Reason SARS-CoV-2 (COVID-19) mRNA-1273 vaccine 06/09/21 Recorded SARS-CoV-2 (COVID-19) mRNA-1273 vaccine 04/17/21 Recorded influenza virus vaccine, inactivated 04/17/21 Recorded influenza virus vaccine, inactivated1 07/03/19 Given 1Result Comment: [facility]# [id number] Medications Ativan 2 mg oral tablet 1 tablet = 2 mg, By Mouth, 2 times a day, 0 Refills, Maintenance, 02/04/22 14:56:00 EDT, Tablet, Partial fill upon patient request if the prescription is for a schedule II opioid drug. Start Date: 02/04/22 Status: Orderedcalcium carbonate 500 mg (200 mg [...] II opioid drug. Start Date: 04/03/21 Status: OrderedDisposable briefs Disposable briefs, See Instructions, # 90 each, Refills 11, Tot. Refills 11, Maintenance, Apply at bedtime and change as needed for enuresis/incontinence, 04/02/22 17:54:00 EDT, Supply, 173, cm, 04/02/22 12:51:00 EDT, Height, 85.8, kg, 04/07/21 14:21:... Start Date: 04/02/22 Status: OrderedDulcolax 10 mg rectal suppository 1 supp = 10 mg, Rectally, Daily, PRN for constipation, 1 supp daily as needed for constipation, # 10supp, 0 Refills, Maintenance, 02/03/22 15:20:00 EDT, Suppository, [facility]-[id number], Partial fill upon patient request if the prescri... Start Date: 02/03/22 Status: OrderedFLUoxetine 20 mg oral capsule 40 mg, 2, capsule, By Mouth, Daily, 2 capsules to equal 40 mg daily., # 60 capsule, Refills 5, Tot. Refills 5, Maintenance, 03/08/20 10:37:00 EDT, Route to Pharmacy Electronically, [facility], 170, cm, 02/22/20 20:33:00 EDT, Height, 80.9, kg, ... Start Date: 03/08/20 Status: Orderedlidocaine 5% topical film 1 patch, Topically, Daily, PRN Pain , Mild, remove after 12 hours, # 30 patch, 3 Refills, Maintenance, 08/27/21 16:03:00 EDT, Film, [facility]- [id number], Partial fill upon patient requestif the prescription is for a schedule II opioid d... Start Date: 08/27/21 Status: OrderedLinzess 145 mcg oral capsule 1 capsule, By Mouth, Daily in AM, # 30 capsule, 0 Refills, [place] [id number], 168, cm, :41:00 EDT, Height, 85.8, kg, 04/07/21 14:21:00 EDT, Dry Weight Start Date: 01/08/22 Status: Orderedloratadine 10 mg oral tablet See Instructions, TAKE 1 TABLET BY MOUTH DAILY IN THE MORNING, # 30 tablet, Refills 5, Tot. Refills 5, 12/24/21 14:55:00 EDT, Instructions Replace Required Details, Route to Pharmacy Electronically, [facility], 168, cm, ... Start Date: 12/24/21 Status: Orderedmagnesium citrate 8.85% oral liquid 17 grams, By Mouth, Once, Use PRN after four days of no bowel movement. Repeat after 24 hours if no BM. Call PCP after 24 hours if no BM after second dose, # 68 Gm, 5 Refills, Soft Stop, 08/07/21 13:25:00 EST, Liquid, [facility], 17 grams By Mo... Start Date: 08/07/21 Status: Orderedmagnesium citrate 8.85% oral liquid 17 grams, By Mouth, Once, Use PRN after four days of no bowel movement. Repeat after 24 hours if no BM. Call PCP after 24 hours if no BM after second dose, # 68 Gm, 1 Refills, Soft Stop, 02/04/22 15:33:00 EDT, Liquid, [facility]-00... Start Date: 02/04/22 Status: OrderedMelatonin 5 mg oral tablet 1 [...] Refills, Maintenance, 12/05/21 16:01:00 EDT, EC Capsule, [facility]-[id number], Partial fill upon patient request if the prescription isfor a schedule II opioid drug., 168, cm, 11/20/21... Start Date: 12/05/21 Status: OrderedPeri-Colace 50 mg-8.6 mg oral tablet 2 tablet, By Mouth, Daily at bedtime, for 30 days, # 60 tablet, 5 Refills, Acute 05/19/22 10:38:00 EST, 11/20/21 10:38:00 EDT, Tablet, [facility]-42554, Partial fill upon patient request if the prescription is for a schedule II opioi... Start Date: 11/20/21 Stop Date: 05/19/22 Status: Orderedpolyethylene glycol 3350 oral powder for reconstitution See Instructions, MIX & DISSOLVE 17GM DOSE IN 4 TO 8 OUNCES OF WATER, DRINK THE SOLUTION ONCE A DAY NEEDED FOR CONSTIPATION, # 510 Gm, 2 Refills, Maintenance, 02/04/22 15:24:00 EDT, [facility]-36622, 30, MIX & DISSOLVE 17GM DOSE I... Start Date: 02/04/22 Status: Orderedpropranolol 10 mg oral tablet 10 mg, 1, tablet, Refills 0, Maintenance, 04/02/22 12:54:00 EDT, Partial fill upon patient request if the prescription is for a schedule II opioid drug. Start Date: 04/02/22 Status: OrderedSEROquel 200 mg oral tablet 600 [...] 0 Refills, Maintenance, 04/02/22 13:48:00 EDT, Gel, [facility]-[id number], Partial fill upon patient request if the [...] right Confirmed 08/15/20 Active shoulder Lives in long term Confirmed Active Obesity Confirmed Active Pain of right Confirmed 08/15/20 Active humerus Annual physical exam Confirmed Active Tobacco abuse Confirmed Active Umbilical hernia Confirmed Active Diagnosis Diagnosis Type Effective Dates Health Status Clinical Serv ice Informant Enuresis Discharge 04/02/22 Diagnosis Vital Signs Most recent to oldest [Reference Range]: 1 Height 173 cm (04/02/22 12:51 PM) Weight 88.6 kg (04/02/22 12:51 PM) Oxygen Saturation [94-100 %] 96 % (04/02/22 12:51 PM) Pulse Rate [55-90 bpm] 90 bpm (04/02/22 12:51 PM) Body Mass Index [18.5-24.99 kg/m2] 29.6 kg/m2 *H* (04/02/22 12:51 PM) Blood Pressure [90-138/55-84 mm Hg] 112/66 mm Hg (04/02/22 12:51 PM) Respiratory Rate [16-30 br/min] 18 br/min (04/02/22 12:51 PM) Liters per Minute 0 L/min (04/02/22 12:51 PM) Mode of Delivery (Oxygen) Room air (04/02/22 12:51 PM) Blood pressure sites Arm, left (04/02/22 12:51 PM) Temperature Route Temporal (04/02/22 12:51 PM) Weight Obtained Via Standing scale (04/02/22 12:51 PM) Social History Social History Type Response [...] Unknown Active Unknown Patient Care team information PersonnelName: Isma IZQUIERDO, Keturah Address: Address: [address] [place] [address]
--- OUTSIDE RECORDS SUMMARY | 2022-06-26 21:14 | XMS_ITS | Continuity of Care Document ---
:1990 Author Organization [facility] Address Unavailable , Care Team Providers Name Role Phone Isma IZQUIERDO, Keturah Primary Care Physician [place] [facility] Date(s): 06/26/21 - 07/26/21 [facility] Attending Physician: Bel Galloway Admitting Physician: Bel Galloway Referring Physician: Bel Galloway Allergies, Adverse Reactions, Alerts Substance Reaction Severity Status Risperdal unkown Active Immunizations Given and Recorded Vaccine Date Status Refusal Reason influenza virus vaccine, inactivated1 07/03/19 Given 1Result Comment: [facility]# [id number] Medications calcium carbonate 500 mg (200 mg [...] 03/08/20 10:37:00 EDT, Route to Pharmacy Electronically, [facility], 170, cm, 02/22/20 20:33:00 EDT, Height, 80.9, kg, ... Start Date: 03/08/20 Status: OrderedIbuprofen 600 mg, By Mouth, Every [...] Replace Required Details, Route to Pharmacy Electronically, [facility], 168, cm, 03/04/21 13:36:00 EDT, Frederic... Start Date: 03/14/21 Status: Orderedmagnesium citrate 8.85% oral liquid 300 mL = 17.45 Gm, By Mouth, Once, Use PRN after four days of no bowel movement. Repeat after 24 hours if no BM. Call PCP after 24 hours if no BM after second dose, # 300 mL, 5 Refills, Soft Stop, 06/26/21 10:49:00 EST, Liquid, [facility], 300... Start Date: 06/26/21 Status: OrderedMelatonin 5 mg oral tablet 1 [...] Gm, 2 Refills, Maintenance, 10/30/20 11:19:00 EDT, [facility], 30, MIX & DISSOLVE 17GM DOSE [...] of right shoulder(Confirmed) 08/15/20 Active Lives in prison(Confirmed) Active Obesity(Confirmed) Active Pain of right humerus(Confirmed) 08/15/20 Active Annual physical exam(Confirmed) Active Tobacco abuse(Confirmed) Active Umbilical hernia(Confirmed) Active Social History Social History Type Response Smoking Status Former smoker, quit more padmini n 30 days ago entered on: 03/11/20 Sex Medical Equipment Implanted Date:04/07/21 Target Site:[facility] Description Quantity MRI Company Model MESH VENTRALIGHT ECHO CIR 4.5 - BARD ([id number]) 1 Bard Unknown JENNIFER: No Information Assigning Authority: FDA
--- OUTSIDE RECORDS SUMMARY | 2022-06-26 21:14 | XMS_ITS | Continuity of Care Document ---
:1990 Author Organization [facility] Address [address] [place] [address]- Care Team Providers Name Role Phone Isma IZQUIERDO, Keturah Primary Care Physician Encounter [facility] [id number] Date(s): 12/02/20 - 01/01/21 [facility] [address], [place] [address] Allergies, Adverse Reactions, Alerts Substance Reaction Severity Status Risperdal Active Immunizations Given and Recorded Vaccine Date Status Refusal Reason influenza virus vaccine, inactivated1 07/03/19 Given 1Result Comment: [facility]# [id number] Medications benztropine 1 mg oral tablet 1 mg, 1, tablet, By Mouth, 2 times a day, # 60 tablet, Refills 3, Tot. Refills 3, Maintenance, 11/21/18 9:28:36 EDT, Route to Pharmacy Electronically, [id number], [facility]/pharmacy#[id number] Start Date: 11/21/18 Stop Date: 03/21/19 [...] constipation, # 60 capsule, 5 Refills, Maintenance, 10/30/20 11:18:00 EDT, Capsule, [facility], To replace 50 mg capsules, 168, cm, 10/30/20 11:05:00 EDT, Height, 83.3, kg, 10/24/20 17:15:00 ED... Start Date: 10/30/20 Status: OrderedDulcolax 10 mg rectal suppository 1 [...] 03/08/20 10:37:00 EDT, Route to Pharmacy Electronically, [facility], 170, cm, 02/22/20 20:33:00 EDT, Height, [...] 4 Refills, Maintenance, 09/19/20 13:00:00 EDT, Capsule, [facility], 170, cm, 09/13/20 15:29:00 EDT, Height, 88.3, kg, 09/13/20 15:29:00 EDT, Dry Weight Start Date: 09/19/20 Status: OrderedLinzess 72 mcg oral capsule 1 capsule = 72 mcg, By Mouth, Daily, do not crush or chew, # 90 capsule, 3 Refills, Maintenance, 12/25/20 13:52:00 EDT, Capsule, [facility], Partial fill upon patient request if the prescription is for a schedule II opioid drug., 168, cm, ... Start Date: 12/25/20 Status: Orderedloratadine 10 mg oral tablet 10 mg, 1, tablet, By Mouth, Daily in AM, Refills 0, Maintenance, 02/02/20 11:37:00 EDT Start Date: 02/02/20 Status: Orderedloratadine 10 mg oral tablet 10 mg, 1, tablet, By Mouth, Daily, # 30 tablet, Refills 5, Tot. Refills 5, Maintenance, 10/23/20 10:07:00 EDT, Route to Pharmacy Electronically, [facility], 170, cm, 09/02/20 15:24:00 EDT, Height,86.6, [...] Refills, Soft Stop, 12/13/20 15:34:00 EDT, Liquid, [facility], 300... Start Date: 12/13/20 Status: OrderedMelatonin [...] 15:39:00 EST, 12/11/20 15:39:00 EDT, REC Powder, [facility], Partial fill uponpatient request if the prescription is for a sche... Start Date: 12/11/20 Stop Date: 07/09/21 Status: OrderedMultivitamin Daily, 0 Refills, Maintenance, 06/21/18 14:04:37 EST Start Date: 06/21/18 Status: Orderedolanzapine 15 mg oral tablet 1 [...] Gm, 2 Refills, Maintenance, 10/30/20 11:19:00 EDT, [facility], 30, MIX & DISSOLVE 17GM DOSE IN 4 TO 8 OUNCES OF... Start Date: 10/30/20 Status: OrderedPsyllium 1.56 grams, By Mouth, 4 times a day, PRN, as needed if no bowel movement in 72 hours, give with at least 8 oz of water. If no bowel movement in 24 hours after 3rd dose, contact doctor, Refills 0, Maintenance, as needed for constipation, 11/29/20 12:28... Start Date: 11/29/20 Status: OrderedSenna 8.6 mg oral tablet 8.6 mg, 1, tablet, By Mouth, Daily at bedtime, for 30 days, # 30 tablet, Refills 6, Tot. Refills 6, Acute, 07/09/21 15:40:00 EST, 12/11/20 15:40:00 EDT, Route to Pharmacy Electronically, [facility], Partial fill upon patient request if the prescr... Start Date: 12/11/20 Stop Date: 07/09/21 Status: OrderedZyPREXA 15 mg oral tablet 1 [...]
--- OUTSIDE RECORDS SUMMARY | 2022-06-26 21:14 | XMS_ITS | Continuity of Care Document ---
:1990 Author Organization [facility] Address [address] [place] [address]- Care Team Providers Name Role Phone Keturah Ashby NP Primary Care Physician [id number] Date(s): 06/26/21 - 07/03/21 [facility] [address] [place] [address]- Encounter Diagnosis Chronic constipation (Discharge Diagnosis) - 06/26/21 Dental abscess (Discharge Diagnosis) - 06/26/21 Obese class I (Discharge Diagnosis) - 06/26/21 Attending Physician: Keturah Ashby NP Allergies, Adverse Reactions, Alerts Substance Reaction Severity Status Risperdal unkown Active Immunizations Given and Recorded Vaccine Date Status Refusal Reason influenza virus vaccine, inactivated1 07/03/19 Given 1Result Comment: [facility]# [id number] Medications calcium carbonate 500 mg (200 mg [...] Start Date: 06/26/21 Stop Date: 07/26/21 Status: OrderedcloNIDine 0.1 mg oral tablet 0.1 [...] 03/08/20 10:37:00 EDT, Route to Pharmacy Electronically, [facility], 170, cm, 02/22/20 20:33:00 EDT, Height, [...] 4 Refills, Maintenance, 03/26/21 16:53:00 EDT, Capsule, [facility], 168, cm, 03/04/21 13:36:00 EDT, Height, 83.3, kg, 10/24/20 17:15:00 EDT, DryWeight Start Date: 03/26/21 Status: Orderedloratadine 10 mg oral tablet See Instructions, TAKE 1 TABLET BY MOUTH DAILY, # 30 tablet, Refills 5, Tot. Refills 5, Maintenance,03/14/21 11:21:00 EDT, Instructions Replace Required Details, Route to Pharmacy Electronically, [facility], 168, cm, 03/04/21 13:36:00 EDT, Heigh... Start Date: 03/14/21 Status: Orderedmagnesium citrate 8.85% oral liquid 300 mL = 17.45 Gm, By Mouth, Once, Use PRN after four days of no bowel movement. Repeat after 24 hours if no BM. Call PCP after 24 hours if no BM after second dose, # 300 mL, 5 Refills, Soft Stop, 06/26/21 10:49:00 EST, Liquid, [facility], 300... Start Date: 06/26/21 Status: OrderedMelatonin [...] 15:39:00 EST, 12/11/20 15:39:00 EDT, REC Powder, [facility], Partial fill uponpatient request if the [...] Gm, 2 Refills, Maintenance, 10/30/20 11:19:00 EDT, [facility], 30, MIX & DISSOLVE 17GM DOSE IN 4 TO 8 OUNCES OF... Start Date: 10/30/20 Status: OrderedSenna 8.6 mg oral tablet 8.6 mg, 1, tablet, By Mouth, Daily at bedtime, for 30 days, # 30 tablet, Refills 6, Tot. Refills 6, Acute, 07/09/21 15:40:00 EST, 12/11/20 15:40:00 EDT, Route to Pharmacy Electronically, [facility], Partial fill upon patient request [...] of right shoulder(Confirmed) 08/15/20 Active Lives in [facility](Confirmed) Active Obese class I(Confirmed) Active Obesity(Confirmed) Active Pain of right humerus(Confirmed) 08/15/20 Active Annual physical exam(Confirmed) Active Tobacco abuse(Confirmed) Active Umbilical hernia(Confirmed) Active Diagnosis Diagnosis Type Effective Dates Health Clinical Infor mant Status Service Chronic Discharge 06/26/21 constipation Diagnosis Dental abscess Discharge 06/26/21 Diagnosis Obese class I Discharge 06/26/21 Diagnosis Vital Signs Most recent to oldest [Reference Range]: 1 Height 168 cm (06/26/21 10:23 AM) Weight 88.1 kg (06/26/21 10:23 AM) Oxygen Saturation [94-100 %] 98 % (06/26/21 10:23 AM) Pulse Rate [55-90 bpm] 108 bpm *H* (06/26/21 10:23 AM) Body Mass Index [18.5-24.99] 31.21 *>HHI* (06/26/21 10:23 AM) Blood Pressure [90-138/55-84 mm Hg] 112/60 mm Hg (06/26/21 10:23 AM) Respiratory Rate [16-30 br/min] 17 br/min (06/26/21 10:23 AM) Temperature [96.8-100.4 DegF] 98.5 DegF (06/26/21 10:23 AM) Liters per Minute 0 L/min (06/26/21 10:23 AM) Mode of Delivery (Oxygen) Room air (06/26/21 10:23 AM) Blood pressure sites Arm, left (06/26/21 10:23 AM) Temperature Route Temporal (06/26/21 10:23 AM) Weight Obtained Via Standing scale (06/26/21 10:23 AM) Social History Social History Type Response Smoking Status Former smoker, quit more padmini n 30 days ago entered on: 03/11/20 Sex Medical Equipment Implanted Date:04/07/21 Target Site:[facility] Description Quantity MRI Company Model MESH VENTRALIGHT ECHO CIR 4.5 - BARD ([id number]) 1 Bard Unknown JENNIFER: No Information Assigning Authority: FDA
--- OUTSIDE RECORDS SUMMARY | 2022-06-26 21:14 | XMS_ITS | Continuity of Care Document ---
:1990 Author Organization [facility] Address [address] [address]- Care Team Providers Name Role Phone Diego Ibarra Primary Care Physician Encounter [facility] Date(s): 10/10/20 - 11/09/[address] [address]- Attending Physician: Bel Galloway Admitting Physician: AdmtrBel Referring Physician: Admtr ArDavid Allergies, Adverse Reactions, Alerts Substance Reaction Severity Status Risperdal Active Immunizations Given and Recorded Vaccine Date Status Refusal Reason influenza virus vaccine, inactivated1 07/03/19 Given 1Result Comment: [facility]# [id number] Medications benztropine 1 mg oral tablet 1 mg, 1, tablet, By Mouth, 2 times a day, # 60 tablet, Refills 3, Tot. Refills 3, Maintenance, 11/21/18 9:28:36 EDT, Route to Pharmacy Electronically, [id number], [facility]/pharmacy#[id number] Start Date: 11/21/18 Stop Date: 03/21/19 Status: [...] 5 Refills, Maintenance, 10/30/20 11:18:00 EDT, Capsule, [facility], To replace 50 mg capsules, 168, cm, 10/30/20 11:05:00 EDT, Height, 83.3, kg, 10/24/20 17:15:00 ED... Start Date: 10/30/20 Status: OrderedDulcolax 10 mg rectal suppository 1 supp = 10 mg, Rectally, Daily, PRN for constipation, # 10 supp, 0 Refills, Maintenance, 09/13/20 13:08:00 EDT, Suppository, [facility], Partial fill upon patient request if the prescription is for a schedule II opioid drug., 170, cm, 09/13/20 1... Start Date: 09/13/20 Status: OrderedFLUoxetine 20 mg oral capsule 40 mg, 2, capsule, By Mouth, Daily, 2 capsules to equal 40 mg daily., # 60 capsule, Refills 5, Tot. Refills 5, Maintenance, 03/08/20 10:37:00 EDT, Route to Pharmacy Electronically, [facility], 170, cm, 02/22/20 20:33:00 EDT, Height, [...] 4 Refills, Maintenance, 09/19/20 13:00:00 EDT, Capsule, [facility], 170, cm, 09/13/20 15:29:00 EDT, Height, 88.3, [...] 10/23/20 10:07:00 EDT, Route to Pharmacy Electronically, [facility], 170, cm, 09/02/20 15:24:00 EDT, Height,86.6, [...] Refills, Soft Stop, 03/21/20 14:01:00 EDT, Liquid, [facility], 300... Start Date: 03/21/20 Status: Orderedmagnesium citrate 8.85% oral liquid 150 mL = 8.725 Gm, By Mouth, Once, # 300 mL, 0 Refills, Soft Stop, 09/20/20 15:27:00 EDT, Liquid, [id number], Partial fill upon patient request if the [...] water, # 160 capsule, 3 Refills, Maintenance, 10/30/20 11:19:00 EDT, Capsule, [facility], Partial fill upon patient request if the prescripti... Start Date: 10/30/20 Status: OrderedMultivitamin Daily, 0 Refills, Maintenance, 06/21/18 [...] 8 OUNCES OF... Start Date: 10/30/20 Status: OrderedZyPREXA 15 mg oral tablet 1 [...]
--- OUTSIDE RECORDS SUMMARY | 2022-06-26 21:14 | XMS_ITS | Continuity of Care Document ---
:1990 Author Organization [facility] Address [address] [place] [address]- Care Team Providers Name Role Phone Isma IZQUIERDO, Keturah Primary Care Physician Encounter [facility] Date(s): 09/08/21 - 10/08/21 [facility] [address] [place] [phone]- [place] Allergies, Adverse Reactions, Alerts Substance Reaction Severity Status Risperdal unkown Active Immunizations Given and Recorded Vaccine Date Status Refusal Reason influenza virus vaccine, inactivated1 07/03/19 Given 1Result Comment: [facility]# [id number] Medications calcium carbonate 500 mg (200 mg [...] 0 Refills, Maintenance, 09/13/20 13:08:00 EDT, Suppository, [facility], Partial fill upon patient request if the prescription is for a schedule II opioid drug., 170, cm, 09/13/20 1... Start Date: 09/13/20 Status: OrderedFLUoxetine 20 mg oral capsule 40 mg, 2, capsule, By Mouth, Daily, 2 capsules to equal 40 mg daily., # 60 capsule, Refills 5, Tot. Refills 5, Maintenance, 03/08/20 10:37:00 EDT, Route to Pharmacy Electronically, [facility], 170, cm, 02/22/20 20:33:00 EDT, Height, 80.9, kg, ... Start Date: 03/08/20 Status: Orderedlidocaine 5% topical film 1 patch, Topically, Daily, PRN Pain , Mild, remove after 12 hours, # 30 patch, 3 Refills, Maintenance, 08/27/21 16:03:00 EDT, Film, [facility]- [id number], Partial fill upon patient requestif the prescription is for a schedule II opioid d... Start Date: 08/27/21 Status: OrderedLinzess 145 mcg oral capsule 1 capsule = 145 mcg, By Mouth, Daily, # 90 capsule, 4 Refills, Maintenance, 03/26/21 16:53:00 EDT, Capsule, [facility], 168, cm, 03/04/21 13:36:00 EDT, Height, 83.3, kg, 10/24/20 17:15:00 EDT, DryWeight Start Date: 03/26/21 Status: Orderedloratadine 10 mg oral tablet See Instructions, TAKE 1 TABLET BY MOUTH DAILY IN THE MORNING, # 30 tablet, Refills 5, Instructions Replace Required Details, Route to Pharmacy Electronically, [facility], 168, cm, 07/21/21 12:32:00 EST, Height, [...] Refills, Soft Stop, 08/07/21 13:25:00 EST, Liquid, [facility], 17 grams By Mo... Start Date: [...] of right shoulder(Confirmed) 08/15/20 Active Lives in [facility](Confirmed) Active Obesity(Confirmed) Active Pain of right humerus(Confirmed) 08/15/20 Active Annual physical exam(Confirmed) Active Tobacco abuse(Confirmed) Active Umbilical hernia(Confirmed) Active Social History Social History Type Response Smoking Status Former smoker, quit more padmini n 30 days ago entered on: 03/11/20 Sex Medical Equipment Implanted Date:04/07/21 Target Site:[facility] Description Quantity MRI Company Model MESH VENTRALIGHT ECHO CIR 4.5 - BARD ([id number]) 1 Bard Unknown JENNIFER: No Information Assigning Authority: FDA
--- OUTSIDE RECORDS SUMMARY | 2022-06-26 21:14 | XMS_ITS | Continuity of Care Document ---
:1990 Author Organization [facility] Address [address] [place] [address]- Care Team Providers Name Role Phone Keturah Ashby NP Primary Care Physician Encounter [facility] Date(s): 04/29/22 - 05/06/22 [facility] [address] [id number]- Encounter Diagnosis Annual physical exam (Discharge Diagnosis) - 04/29/22 Bipolar disorder (Discharge Diagnosis) - 04/29/22 Chronic GERD (Discharge Diagnosis) - 04/29/22 Chronic constipation (Discharge Diagnosis) - 04/29/22 Intermittent explosive disorder in adult (Discharge Diagnosis) - 04/29/22 Developmental disability (Discharge Diagnosis) - 04/29/22 Obesity (BMI 30-39.9) (Discharge Diagnosis) - 04/29/22 Attending Physician: Keturah Ashby NP Allergies, Adverse Reactions, Alerts Substance Reaction Severity Status Risperdal unkown Active Immunizations Given and Recorded Vaccine Date Status Refusal Reason SARS-CoV-2 (COVID-19) mRNA-1273 vaccine 06/09/21 Recorded SARS-CoV-2 (COVID-19) mRNA-1273 vaccine 04/17/21 Recorded influenza virus vaccine, inactivated 04/17/21 Recorded influenza virus vaccine, inactivated1 07/03/19 Given 1Result Comment: [facility]# 13350-633-34 Medications calcium carbonate 500 mg (200 mg [...] tablet, 3 Refills, Maintenance, 04/15/22 16:25:00 EST, [id number], 28, TAKE 2 TABLETS BY MOUTH DAILY AT BEDTIME, 173, cm, 04/02/22 12:51:00 EDT, Height, 85.8, kg, 04/07/21 14:21:00 EDT, Dry Weight Start Date: 04/15/22 Status: OrderedDulcolax 10 mg rectal suppository 1 supp = 10 mg, Rectally, Daily, PRN for constipation, 1 supp daily as needed for constipation, # 10supp, 0 Refills, Maintenance, 02/03/22 15:20:00 EDT, Suppository, [facility]-15446, Partial fill upon patient request if the prescri... Start Date: 02/03/22 Status: OrderedFish Oil 1000 mg oral capsule 1 capsule = 1,000 mg, By Mouth, 2 times a day, may keep in fridge or freezer, # 60 capsule, 5 Refills, Maintenance, 05/05/22 16:21:00 EST, Capsule, [facility]-02955, Partial fill uponpatient request if the prescription [...] in AM, # 30 capsule, 0 Refills, [place] [id number], 168, cm, :41:00 EDT, Height, 85.8, kg, 04/07/21 14:21:00 EDT, Dry Weight Start Date: 01/08/22 Status: Orderedloratadine 10 mg oral tablet See Instructions, TAKE 1 TABLET BY MOUTH DAILY IN THE MORNING, # 30 tablet, Refills 5, Tot. Refills 5, 12/24/21 14:55:00 EDT, Instructions Replace Required Details, Route to Pharmacy Electronically, [place] [id number], 168, cm, ... Start Date: 12/24/21 Status: [...] II opioid drug. Start Date: 08/27/21 Status: OrderedMiraLax oral powder for reconstitution = 17 Gm, By Mouth, Daily, PRN Constipation, offer if no BM in 2 days; dissolve in water before taking, # 527 Gm, 0 Refills, Acute 05/29/22 9:03:00 EST, 04/29/22 9:02:00 EST, REC Powder, [facility]-12204, Partial fill upon patient req... Start Date: 04/29/22 Stop Date: 05/29/22 Status: Orderedomeprazole 20 mg oral enteric coated capsule 1 capsule = 20 mg, By Mouth, Daily, # 30 capsule, 5 Refills, Maintenance, 12/05/21 16:01:00 EDT, EC Capsule, [facility]-68041, Partial fill upon patient request if the prescription isfor a schedule II opioid drug., 168, cm, 11/20/21... Start Date: 12/05/21 Status: OrderedQUEtiapine 300 mg oral tablet 1 [...] 0 Refills, Maintenance, 04/02/22 13:48:00 EDT, Gel, [facility]-00075, Partial fill upon patient request if the prescription is for a schedule II opioid drug., 1 applica... Start Date: 04/02/22 Status: Ordered Problem List Condition Confirmation Course Effective Dates [facility] I nformant Status Allergic rhinitis Confirmed Active Bipolar disorder Confirmed Active Chronic constipation Confirmed Active Developmental Confirmed Active disability Intermittent Confirmed Active explosive disorder in adult Chronic GERD Confirmed Active Injury of right Confirmed 08/15/20 Active shoulder Lives in half-way Confirmed Active Obese class I Confirmed Active Obesity Confirmed Active Pain of right Confirmed 08/15/20 Active humerus Annual physical exam Confirmed Active Tobacco abuse Confirmed Active Umbilical hernia Confirmed Active Diagnosis Diagnosis Type Effective Dates [facility] Clinical Infor mant Status Service Annual physical Discharge 04/29/22 exam Diagnosis Bipolar disorder Discharge 04/29/22 Diagnosis Chronic GERD Discharge 04/29/22 Diagnosis Chronic Discharge 04/29/22 constipation Diagnosis Intermittent Discharge 04/29/22 explosive disorder Diagnosis in adult Developmental Discharge 04/29/22 disability Diagnosis Obesity (BMI Discharge 04/29/22 30-39.9) Diagnosis Vital Signs Most recent to oldest [Reference Range]: 1 Height 173 cm (04/29/22 8:45 AM) Weight 89.9 kg (04/29/22 8:45 AM) Oxygen Saturation [94-100 %] 98 % (04/29/22 8:45 AM) Pulse Rate [55-90 bpm] 78 bpm (04/29/22 8:45 AM) Body Mass Index [18.5-24.99 kg/m2] 30.04 kg/m2 *>HHI* (04/29/22 8:45 AM) Blood Pressure [90-138/55-84 mm Hg] 112/68 mm Hg (04/29/22 8:45 AM) Respiratory Rate [16-30 br/min] 16 br/min (04/29/22 8:45 AM) Temperature [96.8-100.4 DegF] 97.0 DegF (04/29/22 8:45 AM) Mode of Delivery (Oxygen) Room air (04/29/22 8:45 AM) Blood pressure sites Arm, left (04/29/22 8:45 AM) Temperature Route Temporal (04/29/22 8:45 AM) Weight Obtained Via Standing scale (04/29/22 8:45 AM) Social History Social History Type Response [...] Unknown Unknown 01/01/23 Unknown Unknown Active Unknown Note Keila Jin: PERFORM, SIGN, VERIFY Event Display: Patient Education/Instruction Authored Date: [id number] [facility] *BMP [facility] Bltn Clinical Summary Name MARGE SIMMONS Age 31 Years 1990 PCP Isma IZQUIERDO, [facility]urah [id number] Visit Date 04/29/2022 08:41:00 Additional Instructions: Scheduled Appointments?? Future Appointments ?*BMP??[facility]??Med??Bltn ?[address],??[place],??[address] ?Phone:??--?Fax:??-- ?Appt. Date:??07/06/2022?8:20 AM ?Scheduled Provider:??Isma IZQUIERDO, Keturah Follow-Up Instructions ?? Diagnosis Encounter for general adult medical examination without abnormal findings Medications: Please continue your medications until treatment is completed or stopped by your provider. Discuss any questions related to medications with your provider. Medications to Continue Taking That Have Changed [facility] [place]-[id number], [address] [place] [phone], [phone] - Polyethylene Glycol 3350 (MiraLax oral powder for reconstitution) 17 gram Oral Daily as needed Constipation. offer if no BM in 2 days; dissolve in water before taking. Refills: 0. Next Dose: Medications to Continue with No Changes These medications were not printed or sent to your pharmacy Bisacodyl (Dulcolax 10 mg rectal suppository) 1 suppository(ies) Per rectum Daily as needed for constipation. 1 supp daily as needed for constipation. Refills: 0. Next Dose: Calcium Carbonate (calcium carbonate 500 mg (200 mg elemental calcium) oral tablet, chewable) 1 tab(s) Oral every 4 hours as needed Dyspepsia. Next Dose: Diclofenac Topical (Voltaren 1% topical gel) 1 misa Topically 4 times a day as needed for pain. Refills: 0. Next Dose: Divalproex Sodium (Depakote 500 mg oral enteric coated tablet) 3 tablets Oral Daily at Bedtime. Next Dose: Docusate-Senna (docusate-senna 50 mg-187 mg oral tablet) 2 tab(s) Oral Daily at Bedtime. Refills: 3. Next Dose: Fluoxetine (FLUoxetine 20 mg oral capsule) 1 capsule Oral Daily. Next Dose: Ibuprofen (ibuprofen 600 mg oral tablet) 1 tab(s) Oral every 6 hours as needed Pain , Moderate. Next Dose: linaclotide (Linzess 145 mcg oral capsule) 1 capsule Oral Daily in the morning. Refills: 0. Next Dose: Loratadine (loratadine 10 mg oral tablet) TAKE 1 TABLET BY MOUTH DAILY IN THE MORNING. Refills: 5. Next Dose: Lorazepam (LORazepam 1 mg oral tablet) 1 tab(s) Oral 4 times a day. Next Dose: Melatonin (melatonin 3 mg oral tablet) 2 tab(s) Oral Daily at Bedtime as needed for insomnia. Next Dose: Omeprazole (omeprazole 20 mg oral enteric coated capsule) 1 capsule Oral Daily. Refills: 5. Next Dose: Psyllium (Metamucil 3.4 gm/5.2 gm oral powder for reconstitution) 12 gram Oral Daily. Next Dose: Quetiapine (QUEtiapine 300 mg oral tablet) 1 tab(s) Oral twice a day. Next Dose: Quetiapine (SEROquel 200 mg oral tablet) 2 tablets Oral Daily at Bedtime. Next Dose: No Longer Take the Following Medications Benzonatate (benzonatate 100 mg oral capsule) 1 capsule Oral every 12 hours as needed Cough. Propranolol (propranolol 80 mg oral tablet) 1 tab(s) Oral Daily. Allergy Info:?? Risperdal Medications Given This Visit Future Orders ?Lipid Panel? Order Date:04/29/22?- Complete within?12 months ?Comprehensive Metabolic Panel? Order Date:04/29/22?- Complete within?12 months Vital Signs Height 173 cm Weight 89.9 kg BMI 30.04 kg/m2 Blood Pressure 112 mm Hg/68 mm Hg Temperature 97.0 DegF Pulse Rate 78 bpm Respiratory Rate 16 br/min 02 Sat Mode of Delivery 98 %/Room air You can now view a summary of your hospital visit from the comfort of your home through a free online portal called [employer]. [employer] is a website that allows you to securely view yourmedical information including discharge summary, medications and follow-up visits. ??You can also send a secure electronic message to your doctor???s office to request appointments, renew medications or just ask a question. You can enroll at [email or web address] or register during your next office visit. Disclaimer:?? The information provided is of a general nature and is intended to be used in conjunction with the recommendations and advice of your health care practitioner. ??Every effort has been made to ensure that the information provided is accurate and complete at the time it is provided to you however, as your needs change, or, as new ??information becomes available, different or additional instructions may be required. If you have questions, please consult with your primary care provider or pharmacist, as appropriate.??This information is not intended to serve as substitution for assessment and evaluation by a qualified health care provider. If you do not have a primary care provider, you may find a [facility] provider by calling [facility] at [phone]. For information about the plan of care including goals and instructions for your diagnosis, please see the patient education orders section of this document. Patient Education Materials?? The content of this educational material or handout may have been modified, supplemented, or adaptedfrom its original content and format to support your individualized medical care. Patient Care team information Care Team PersonnelName: Keturah Ashby NP Position: [facility] Associate Professional Member Role: PCP Address: Address: [address] [place] [address]- Care Team Related PersonsName: HIRAL EGAN Address: [place] [address] UM Name: DENISHA EG[place] Address: [place] [address] Name: ELLA MUNGUIA Address: home [address] [place] [id number] Name: HIEN ANGELES Address: home UNKNOWN
--- OUTSIDE RECORDS SUMMARY | 2022-06-26 21:14 | XMS_ITS | Continuity of Care Document ---
:1990 Author Organization [facility] Address [address] [place] [address]- Care Team Providers Name Role Phone Isma IZQUIERDO, Keturah Primary Care Physician Encounter [facility] Date(s): 10/08/21 - 11/14/21 [facility] [address] [id number]- Attending Physician: Rere Suarez MD Allergies, Adverse Reactions, Alerts Substance Reaction Severity Status Risperdal unkown Active Immunizations Given and Recorded Vaccine Date Status Refusal Reason influenza virus vaccine, inactivated1 07/03/19 Given 1Result Comment: [facility]# [id number] Medications calcium carbonate 500 mg (200 mg [...] 0 Refills, Maintenance, 09/13/20 13:08:00 EDT, Suppository, [facility], Partial fill upon patient request if the prescription is for a schedule II opioid drug., 170, cm, 09/13/20 1... Start Date: 09/13/20 Status: OrderedFLUoxetine 20 mg oral capsule 40 mg, 2, capsule, By Mouth, Daily, 2 capsules to equal 40 mg daily., # 60 capsule, Refills 5, Tot. Refills 5, Maintenance, 03/08/20 10:37:00 EDT, Route to Pharmacy Electronically, [facility], 170, cm, 02/22/20 20:33:00 EDT, Height, 80.9, kg, ... Start Date: 03/08/20 Status: Orderedlidocaine 5% topical film 1 patch, Topically, Daily, PRN Pain , Mild, remove after 12 hours, # 30 patch, 3 Refills, Maintenance, 08/27/21 16:03:00 EDT, Film, [facility], Partial fill upon patient requestif the prescription is for a schedule II opioid d... Start Date: 08/27/21 Status: OrderedLinzess 145 mcg oral capsule 1 capsule = 145 mcg, By Mouth, Daily, # 90 capsule, 4 Refills, Maintenance, 03/26/21 16:53:00 EDT, Capsule, [facility], 168, cm, 03/04/21 13:36:00 EDT, Height, 83.3, kg, 10/24/20 17:15:00 EDT, DryWeight Start Date: 03/26/21 Status: Orderedloratadine 10 mg oral tablet See Instructions, TAKE 1 TABLET BY MOUTH DAILY IN THE MORNING, # 30 tablet, Refills 5, Instructions Replace Required Details, Route to Pharmacy Electronically, [facility], 168, cm, 07/21/21 12:32:00 EST, Height, [...] Refills, Soft Stop, 08/07/21 13:25:00 EST, Liquid, [facility], 17 grams By Mo... Start Date: [...] Gm, 2 Refills, Maintenance, 10/30/20 11:19:00 EDT, [facility], 30, MIX & DISSOLVE 17GM DOSE [...] of right shoulder(Confirmed) 08/15/20 Active Lives in [facility](Confirmed) Active Obesity(Confirmed) Active Pain of right humerus(Confirmed) 08/15/20 Active Annual physical exam(Confirmed) Active Tobacco abuse(Confirmed) Active Umbilical hernia(Confirmed) Active Social History Social History Type Response Smoking Status Former smoker, quit more padmini n 30 days ago entered on: 03/11/20 Sex Medical Equipment Implanted Date:04/07/21 Target Site:[employer] Description Quantity [employer] Model MESH VENTRALIGHT ECHO CIR 4.5 - BARD ([id number]) 1 Bard Unknown JENNIFER: No Information Assigning Authority: FDA
--- OUTSIDE RECORDS SUMMARY | 2022-06-26 21:14 | XMS_ITS | Continuity of Care Document ---
:1990 Author Organization [facility] Address [address] [address]- Care Team Providers Name Role Phone Diego Ibarra Primary Care Physician Encounter [facility] Date(s): 09/12/20 - 09/19/20 [facility] [address] [address]- Attending Physician: Carmelo Mercedes MD Referring Physician: Diego Ibarra Allergies, Adverse Reactions, Alerts Substance Reaction Severity Status Risperdal Active Immunizations Given and Recorded Vaccine Date Status Refusal Reason influenza virus vaccine, inactivated1 07/03/19 Given 1Result Comment: [facility]# [id number] Medications benztropine 1 mg oral tablet 1 mg, 1, tablet, By Mouth, 2 times a day, # 60 tablet, Refills 3, Tot. Refills 3, Maintenance, 11/21/18 9:28:36 EDT, Route to Pharmacy Electronically, [id number], [facility]/pharmacy#[id number] Start Date: [...] 5 Refills, Maintenance, 06/04/20 9:18:00 EST, Capsule, [facility], To replace 50 mg capsules, 170, cm, 04/01/20 14:07:00 EDT, Height, 83.1, kg, 03/27/20 18:25:00 EDT... Start Date: 06/04/20 Status: OrderedDulcolax 10 mg rectal suppository 1 supp = 10 mg, Rectally, Daily, PRN for constipation, # 10 supp, 0 Refills, Maintenance, 09/13/20 13:08:00 EDT, Suppository, [facility], Partial fill upon patient request if the prescription is for a schedule II opioid drug., 170, cm, 09/13/20 1... Start Date: 09/13/20 Status: OrderedFLUoxetine 20 mg oral capsule 40 mg, 2, capsule, By Mouth, Daily, 2 capsules to equal 40 mg daily., # 60 capsule, Refills 5, Tot. Refills 5, Maintenance, 03/08/20 10:37:00 EDT, Route to Pharmacy Electronically, [facility], 170, cm, 02/22/20 20:33:00 EDT, Height, [...] 4 Refills, Maintenance, 09/19/20 13:00:00 EDT, Capsule, [facility]15448, 170, cm, 09/13/20 15:29:00 EDT, Height, 88.3, kg, 09/13/20 15:29:00 EDT, Dry Weight Start Date: 09/19/20 Status: Orderedloratadine 10 mg oral tablet 10 mg, 1, tablet, By Mouth, Daily, for 30 days, # 30 tablet, Refills 6, Tot. Refills 6, Hard Stop 10/23/20 10:07:00 EDT, 03/27/20 10:07:00 EDT, Route to Pharmacy Electronically, [facility], 170, cm, 02/22/20 20:33:00 EDT, Height, [...] 10/23/20 10:07:00 EDT, Route to Pharmacy Electronically, [facility], 170, cm, 09/02/20 15:24:00 EDT, Height,86.6, [...] Refills, Soft Stop, 03/21/20 14:01:00 EDT, Liquid, [facility], 300... Start Date: 03/21/20 Status: OrderedMelatonin [...] Refills, Acute 08/03/23 11:00:00EST, 08/02/20 8:59:00 EST, [facility], 28, 1 patch Topically Daily,Instr:ROTATE APPLICATION [...] Stop 12/19/20 16:38:00 EDT, 09/17/20 16:38:00 EDT, [facility], 30, MIX & DISSOLVE 17GM... Start [...] Active Injury of right shoulder(Confirmed) 08/15/20 Active Annual physical exam(Confirmed) Active Tobacco abuse(Confirmed) Active Procedures Procedure Date Related Diagnosis Body Site Status Neck SURGERY Completed Vital Signs Most recent to oldest [Reference Range]: 1 Height 170 cm (09/12/20 1:24 PM) Weight 87.4 kg (09/12/20 1:24 PM) Pulse Rate [55-90 bpm] 77 bpm (09/12/20 1:24 PM) Body Mass Index [18.5-24.99] 30.24 *>HHI* (09/12/20 1:24 PM) Blood Pressure [90-138/55-84 mm Hg] 131/82 mm Hg (09/12/20 1:24 PM) Temperature [96.8-100.4 DegF] 97.8 DegF (09/12/20 1:24 PM) Blood pressure sites Arm, left (09/12/20 1:24 PM) Temperature Route Tympanic (09/12/20 1:24 PM) Dry Weight 87.4 kg (09/12/20 1:24 PM) Weight Obtained Via Standing scale (09/12/20 1:24 PM) Dry Weight Obtained Via Standing scale (09/12/20 1:24 PM) Social History Social History Type Response Smoking Status Former smoker, quit more padmini n 30 days ago entered on: 03/11/20 Sex
--- OUTSIDE RECORDS SUMMARY | 2022-06-26 21:14 | XMS_ITS | Continuity of Care Document ---
:1990 Author Organization [facility] Address [address] [place] [address]- Care Team Providers Name Role Phone Diego Ibarra Primary Care Physician [id number] Date(s): 01/08/20 - 02/09/20 [facility] [address] [place] [address]- Attending Physician: Not on Staff, Attending MD Allergies, Adverse Reactions, Alerts Substance Reaction Severity Status Risperdal Active Immunizations Given and Recorded Vaccine Date Status Refusal Reason influenza virus vaccine, inactivated1 07/03/19 Given 1Result Comment: [facility]# [id number] Medications benztropine 1 mg oral tablet 1 mg, 1, tablet, By Mouth, 2 times a day, # 60 tablet, Refills 3, Tot. Refills 3, Maintenance, 11/21/18 9:28:36 EDT, Route to Pharmacy Electronically, [id number], [facility]/pharmacy#[id number] Start Date: 11/21/18 Stop Date: 03/21/19 [...] Tablet Start Date: 02/02/20 Status: Ordereddocusate sodium 50 mg oral capsule 1 capsule = 50 mg, By Mouth, 2 times a day, 0 Refills, Maintenance, 06/21/18 14:04:28 EST Start Date: 06/21/18 Status: OrderedFLUoxetine 20 mg oral capsule 40 mg, 2, capsule, By Mouth, Daily, 2 capsules to equal 40 mg daily., # 60 capsule, Refills 5, Tot. Refills 5, Maintenance, 11/21/18 9:26:51 EDT, Route to Pharmacy Electronically, [id number], [facility]/pharmacy #[id number] Start Date: 11/21/18 Status: OrderedhydrOXYzine hydrochloride 50 mg oral tablet 1 tablet = 50 mg, By Mouth, Every 4 hours, PRN for anxiety, # 40 tablet, 0 Refills, Maintenance, 02/02/20 11:36:00 EDT, Tablet Start Date: 02/02/20 Status: OrderedLinzess 145 mcg oral capsule 1 capsule = 145 mcg, By Mouth, Daily, # 90 capsule, 4 Refills, Maintenance, 09/27/19 14:06:00 EDT, Capsule, [facility] #[id number], 169, cm, 07/03/19 16:03:00 EST, Height Start Date: 09/27/19 Status: Orderedloratadine 10 mg oral tablet 10 mg, 1, tablet, By Mouth, Daily in AM, Refills 0, Maintenance, 02/02/20 11:37:00 EDT Start Date: 02/02/20 Status: Orderedloratadine 10 mg oral tablet 10 mg, 1, tablet, By Mouth, Daily, # 30 tablet, Refills 6, Tot. Refills 6, Maintenance, 08/30/19 10:07:00 EDT, Route to Pharmacy Electronically, [facility] #[id number], 169, cm, 07/03/19 16:03:00 EST, Height Start Date: 08/30/19 Stop Date: 03/27/20 Status: OrderedMelatonin 5 mg oral tablet 1 tablet = 5 mg, By Mouth, Daily at bedtime, 0 Refills, Maintenance, 06/21/18 14:05:10 EST Start Date: 06/21/18 Status: OrderedMiraLax oral powder for reconstitution = 17 Gm, By Mouth, Daily, for 30 days, dissolve in water before taking As needed for constipation, #510 Gm, 2 Refills, Acute 05/02/20 11:01:00 EST, 02/02/20 11:01:00 EDT, REC Powder, [facility], 17 Gm By Mouth Daily,x30 days,Instr:dissolve in w... Start Date: 02/02/20 Stop Date: 05/02/20 Status: OrderedMultivitamin Daily, 0 Refills, Maintenance, 06/21/18 14:04:37 EST Start Date: 06/21/18 Status: OrderedNicotine 7 mg/24 hour patch 1 patch, Topically, Daily, # 30 patch, 1 Refills, Maintenance, 02/02/20 11:10:00 EDT, Patch, [facility], 1 patch Topically Daily, 169, cm, 02/02/20 10:48:00 EDT, Height Start Date: 02/02/20 Status: Orderedolanzapine 15 mg oral tablet 1 tablet = 15 mg, By Mouth, 2 times a day, # 60 tablet, 3 Refills, Maintenance, 11/21/18 9:27:20 EDT, Tablet Start Date: 11/21/18 Status: Orderedpantoprazole 40 mg oral delayed release tablet 1 tablet = 40 mg, By Mouth, Daily, # 90 tablet, 3 Refills, Maintenance, 09/27/19 14:05:00 EDT, EC Tablet, 169, cm, 07/03/19 16:03:00 EST, Height Start Date: 09/27/19 Status: OrderedZyPREXA 15 mg oral tablet 1 [...] History Social History Type Response Smoking Status 10 or more cigarettes (1/2 p ack or more)/day in last 30 days; Tobacco user in household: No; Type: Cigarettes; Previous treatment: None; Interested in cessation: No; Other: Resumed smoking January 2020; entered on: 02/02/20 Sex
--- OUTSIDE RECORDS SUMMARY | 2022-06-26 21:14 | XMS_ITS | Continuity of Care Document ---
:1990 Author Organization [facility] [employer] Adult [facility] Address [address] [place] [address]- Care Team Providers Name Role Phone Isma IZQUIERDO, Keturah Primary Care Physician Encounter [facility] NBR [id number] Date(s): 05/19/21 - 06/18/21 [facility] Adult Medicine [address] [place] [address]- Allergies, Adverse Reactions, Alerts Substance Reaction Severity Status Risperdal unkown Active Immunizations Given and Recorded Vaccine Date Status Refusal Reason influenza virus vaccine, inactivated1 07/03/19 Given 1Result Comment: [facility]# [id number] Medications calcium carbonate 500 mg (200 mg [...] 03/08/20 10:37:00 EDT, Route to Pharmacy Electronically, [facility], 170, cm, 02/22/20 20:33:00 EDT, Height, [...] 4 Refills, Maintenance, 03/26/21 16:53:00 EDT, Capsule, [facility], 168, cm, 03/04/21 13:36:00 EDT, Height, 83.3, kg, 10/24/20 17:15:00 EDT, DryWeight Start Date: 03/26/21 Status: Orderedloratadine 10 mg oral tablet See Instructions, TAKE 1 TABLET BY MOUTH DAILY, # 30 tablet, Refills 5, Tot. Refills 5, Maintenance,03/14/21 11:21:00 EDT, Instructions Replace Required Details, Route to Pharmacy Electronically, [facility], 168, cm, 03/04/21 13:36:00 EDT, Frederic... Start Date: 03/14/21 Status: Orderedmagnesium citrate 8.85% oral liquid 300 mL = 17.45 Gm, By Mouth, Once, Use PRN after four days of no bowel movement. Repeat after 24 horus if no BM. Call PCP after 24 hours if no BM after second dose, # 300 mL, 5 Refills, Soft Stop, 12/13/20 15:34:00 EDT, Liquid, [facility], 300... Start Date: 12/13/20 Status: OrderedMelatonin [...] 15:39:00 EST, 12/11/20 15:39:00 EDT, REC Powder, [facility], Partial fill uponpatient request if the [...] 12/11/20 15:40:00 EDT, Route to Pharmacy Electronically, [facility], Partial fill upon patient request if [...] MESH VENTRALIGHT ECHO CIR 4.5 - BARD ([id number]) 1 Bard Unknown JENNIFER: No Information Assigning Authority: FDA
--- OUTSIDE RECORDS SUMMARY | 2022-06-26 21:14 | XMS_ITS | Continuity of Care Document ---
:1990 Author Organization [facility] [employer] [facility] Address [address] [place] [phone]- Care Team Providers Name Role Phone Isma IZQUIERDO, Keturah Primary Care Physician Encounter [facility] NBR [id number] Date(s): 11/20/21 - 11/27/21 [facility] Adult Medicine [address] [place], [place] [id number]- Attending Physician: Santiago Villa MD Allergies, Adverse Reactions, Alerts Substance Reaction Severity Status Risperdal unkown Active Immunizations Given and Recorded Vaccine Date Status Refusal Reason SARS-CoV-2 (COVID-19) mRNA-1273 vaccine 06/09/21 Recorded SARS-CoV-2 (COVID-19) mRNA-1273 vaccine 04/17/21 Recorded influenza virus vaccine, inactivated 04/17/21 Recorded influenza virus vaccine, inactivated1 07/03/19 Given 1Result Comment: [facility]# [id number] Medications calcium carbonate 500 mg (200 mg [...] 0 Refills, Maintenance, 09/13/20 13:08:00 EDT, Suppository, [facility], Partial fill upon patient request if the prescription is for a schedule II opioid drug., 170, cm, 09/13/20 1... Start Date: 09/13/20 Status: OrderedFLUoxetine 20 mg oral capsule 40 mg, 2, capsule, By Mouth, Daily, 2 capsules to equal 40 mg daily., # 60 capsule, Refills 5, Tot. Refills 5, Maintenance, 03/08/20 10:37:00 EDT, Route to Pharmacy Electronically, [facility], 170, cm, 02/22/20 20:33:00 EDT, Height, 80.9, kg, ... Start Date: 03/08/20 Status: Orderedlidocaine 5% topical film 1 patch, Topically, Daily, PRN Pain , Mild, remove after 12 hours, # 30 patch, 3 Refills, Maintenance, 08/27/21 16:03:00 EDT, Film, [facility]- [id number], Partial fill upon patient requestif the prescription is for a schedule II opioid d... Start Date: 08/27/21 Status: OrderedLinzess 145 mcg oral capsule 1 capsule = 145 mcg, By Mouth, Daily, # 90 capsule, 4 Refills, Maintenance, 03/26/21 16:53:00 EDT, Capsule, [facility], 168, cm, 03/04/21 13:36:00 EDT, Height, 83.3, kg, 10/24/20 17:15:00 EDT, DryWeight Start Date: 03/26/21 Status: Orderedloratadine 10 mg oral tablet See Instructions, TAKE 1 TABLET BY MOUTH DAILY IN THE MORNING, # 30 tablet, Refills 5, Instructions Replace Required Details, Route to Pharmacy Electronically, [facility], 168, cm, 07/21/21 12:32:00 EST, Height, [...] Refills, Soft Stop, 08/07/21 13:25:00 EST, Liquid, [facility], 17 grams By Mo... Start Date: [...] EDT, Dry Weight Start Date: 09/25/21 Status: OrderedPeri-Colace 50 mg-8.6 mg oral tablet 2 tablet, By Mouth, Daily at bedtime, for 30 days, # 60 tablet, 5 Refills, Acute 05/19/22 10:38:00 EST, 11/20/21 10:38:00 EDT, Tablet, [facility]-07971, Partial fill upon patient request if the [...] Active Tobacco abuse(Confirmed) Active Umbilical hernia(Confirmed) Active Vital Signs Most recent to oldest [Reference Range]: 1 Height 168 cm (11/20/21 8:41 AM) Social History Social History Type Response Smoking Status Former smoker, quit more padmini n 30 days ago entered on: 03/11/20 Sex Medical Equipment Implanted Date:04/07/21 Target Site:[employer] Description Quantity MRI Company Model MESH VENTRALIGHT ECHO CIR 4.5 - BARD ([id number]) 1 Bard Unknown JENNIFER: No Information Assigning Authority: FDA
--- OUTSIDE RECORDS SUMMARY | 2022-06-26 21:14 | XMS_ITS | Continuity of Care Document ---
:1990 Author Organization [facility] Address [address] [place] [address]- Care Team Providers Name Role Phone Isma IZQUIERDO, Keturah Primary Care Physician Encounter [facility] [id number] Date(s): 12/11/20 - 01/10/21 [facility] [address] [place], [place] [address] Attending Physician: Bel Galloway Admitting Physician: AdmtrBel Referring Physician: AdmtrBel Allergies, Adverse Reactions, Alerts Substance Reaction Severity Status Risperdal Active Immunizations Given and Recorded Vaccine Date Status Refusal Reason influenza virus vaccine, inactivated1 07/03/19 Given 1Result Comment: [facility]# [id number] Medications benztropine 1 mg oral tablet 1 mg, 1, tablet, By Mouth, 2 times a day, # 60 tablet, Refills 3, Tot. Refills 3, Maintenance, 11/21/18 9:28:36 EDT, Route to Pharmacy Electronically, [id number], [facility]/pharmacy#[id number] Start Date: 11/21/18 Stop Date: 03/21/19 Status: [...] 5 Refills, Maintenance, 10/30/20 11:18:00 EDT, Capsule, [facility], To replace 50 mg capsules, 168, cm, 10/30/20 11:05:00 EDT, Height, 83.3, kg, 10/24/20 17:15:00 ED... Start Date: 10/30/20 Status: OrderedDulcolax 10 mg rectal suppository 1 supp = 10 mg, Rectally, Daily, PRN for constipation, # 10 supp, 0 Refills, Maintenance, 09/13/20 13:08:00 EDT, Suppository, [facility], Partial fill upon patient request if the prescription is for a schedule II opioid drug., 170, cm, 09/13/20 1... Start Date: 09/13/20 Status: OrderedFLUoxetine 20 mg oral capsule 40 mg, 2, capsule, By Mouth, Daily, 2 capsules to equal 40 mg daily., # 60 capsule, Refills 5, Tot. Refills 5, Maintenance, 03/08/20 10:37:00 EDT, Route to Pharmacy Electronically, [facility], 170, cm, 02/22/20 20:33:00 EDT, Height, [...] 4 Refills, Maintenance, 09/19/20 13:00:00 EDT, Capsule, [facility], 170, cm, 09/13/20 15:29:00 EDT, Height, 88.3, [...] 10/23/20 10:07:00 EDT, Route to Pharmacy Electronically, [facility], 170, cm, 09/02/20 15:24:00 EDT, Height,86.6, [...] Refills, Soft Stop, 12/13/20 15:34:00 EDT, Liquid, [facility], 300... Start Date: 12/13/20 Status: OrderedMelatonin [...] Gm, 2 Refills, Maintenance, 10/30/20 11:19:00 EDT, [facility], 30, MIX & DISSOLVE 17GM DOSE [...] 12/11/20 15:40:00 EDT, Route to Pharmacy Electronically, [facility], Partial fill upon patient request if [...]
--- OUTSIDE RECORDS SUMMARY | 2022-06-26 21:14 | XMS_ITS | Continuity of Care Document ---
:1990 Author Organization [facility] [employer] [facility] Address [address] [place] [address]- Care Team Providers Name Role Phone Isma IZQUIERDO, Keturah Primary Care Physician Encounter [facility] NBR [id number] Date(s): 06/25/21 - 07/25/21 [facility] [employer] [facility] [address] [place] [phone]- Allergies, Adverse Reactions, Alerts Substance Reaction Severity Status Risperdal unkown Active Immunizations Given and Recorded Vaccine Date Status Refusal Reason influenza virus vaccine, inactivated1 07/03/19 Given 1Result Comment: [facility]# [id number] Medications calcium carbonate 500 mg (200 mg [...] 0 Refills, Maintenance, 09/13/20 13:08:00 EDT, Suppository, [facility], Partial fill upon patient request if [...] Replace Required Details, Route to Pharmacy Electronically, [facility], 168, cm, 03/04/21 13:36:00 EDT, Heigh... Start Date: 03/14/21 Status: Orderedmagnesium citrate 8.85% oral liquid 300 mL = 17.45 Gm, By Mouth, Once, Use PRN after four days of no bowel movement. Repeat after 24 hours if no BM. Call PCP after 24 hours if no BM after second dose, # 300 mL, 5 Refills, Soft Stop, 06/26/21 10:49:00 EST, Liquid, [facility], 300... Start Date: 06/26/21 Status: OrderedMelatonin [...] Gm, 2 Refills, Maintenance, 10/30/20 11:19:00 EDT, [facility], 30, MIX & DISSOLVE 17GM DOSE [...] of right shoulder(Confirmed) 08/15/20 Active Lives in [facility]pc(Confirmed) Active Obesity(Confirmed) Active Pain of right humerus(Confirmed) 08/15/20 Active Annual physical exam(Confirmed) Active Tobacco abuse(Confirmed) Active Umbilical hernia(Confirmed) Active Social History Social History Type Response Smoking Status Former smoker, quit more padmini n 30 days ago entered on: 03/11/20 Sex Medical Equipment Implanted Date:04/07/21 Target Site:[employer] Description Quantity MRI Company Model MESH VENTRALIGHT ECHO CIR 4.5 - BARD ([id number]) 1 Bard Unknown JENNIFER: No Information Assigning Authority: FDA
--- OUTSIDE RECORDS SUMMARY | 2022-06-26 21:14 | XMS_ITS | Continuity of Care Document ---
:1990 Author Organization [facility] [employer] [facility] Address [address] [place] [address]- Care Team Providers Name Role Phone Isma IZQUIERDO, Keturah Primary Care Physician Encounter [facility] NBR [id number] Date(s): 01/21/21 - 02/20/21 [facility] Adult Medicine [address] [place] [address]- Allergies, Adverse Reactions, Alerts Substance Reaction Severity Status Risperdal Active Immunizations Given and Recorded Vaccine Date Status Refusal Reason influenza virus vaccine, inactivated1 07/03/19 Given 1Result Comment: [facility]# [id number] Medications benztropine 1 mg oral tablet 1 mg, 1, tablet, By Mouth, 2 times a day, # 60 tablet, Refills 3, Tot. Refills 3, Maintenance, 11/21/18 9:28:36 EDT, Route to Pharmacy Electronically, [id number], [facility]/pharmacy#[id number] Start Date: 11/21/18 Stop Date: [...] 4 Refills, Maintenance, 09/19/20 13:00:00 EDT, Capsule, [facility]199, 170, cm, 09/13/20 15:29:00 EDT, Height, 88.3, [...] 10/23/20 10:07:00 EDT, Route to Pharmacy Electronically, [facility], 170, cm, 09/02/20 15:24:00 EDT, Height,86.6, [...] Refills, Soft Stop, 12/13/20 15:34:00 EDT, Liquid, [facility], 300... Start Date: 12/13/20 Status: OrderedMelatonin [...] 15:39:00 EST, 12/11/20 15:39:00 EDT, REC Powder, [facility], Partial fill uponpatient request if the [...] Gm, 2 Refills, Maintenance, 10/30/20 11:19:00 EDT, [facility], 30, MIX & DISSOLVE 17GM DOSE [...] 12/11/20 15:40:00 EDT, Route to Pharmacy Electronically, [facility], Partial fill upon patient request if [...]
--- OUTSIDE RECORDS SUMMARY | 2022-06-26 21:14 | XMS_ITS | Continuity of Care Document ---
:1990 Author Organization [facility] [employer] [facility] Address [address] [place] [address]- Care Team Providers Name Role Phone Isma IZQUIERDO, Keturah Primary Care Physician Encounter [facility] Date(s): 01/09/21 - 02/08/21 [facility] [employer] Adult [facility] [address] [place] [phone]- Allergies, Adverse Reactions, Alerts Substance Reaction Severity Status Risperdal Active Immunizations Given and Recorded Vaccine Date Status Refusal Reason influenza virus vaccine, inactivated1 07/03/19 Given 1Result Comment: [facility]# [id number] Medications benztropine 1 mg oral tablet 1 mg, 1, tablet, By Mouth, 2 times a day, # 60 tablet, Refills 3, Tot. Refills 3, Maintenance, 11/21/18 9:28:36 EDT, Route to Pharmacy Electronically, [id number], [facility]/pharmacy#[id number] Start Date: 11/21/18 Stop Date: [...] 03/08/20 10:37:00 EDT, Route to Pharmacy Electronically, [facility], 170, cm, 02/22/20 20:33:00 EDT, Height, [...] 13:00:00 EDT, Capsule, [facility]-[address], 170, cm, 09/13/20 15:29:00 EDT, Height, 88.3, [...] 10/23/20 10:07:00 EDT, Route to Pharmacy Electronically, [facility], 170, cm, 09/02/20 15:24:00 EDT, Height,86.6, [...] Refills, Soft Stop, 12/13/20 15:34:00 EDT, Liquid, [facility], 300... Start Date: 12/13/20 Status: OrderedMelatonin [...] 15:39:00 EST, 12/11/20 15:39:00 EDT, REC Powder, [facility], Partial fill uponpatient request if the [...] Gm, 2 Refills, Maintenance, 10/30/20 11:19:00 EDT, [facility], 30, MIX & DISSOLVE 17GM DOSE [...] 12/11/20 15:40:00 EDT, Route to Pharmacy Electronically, [facility], Partial fill upon patient request if [...]
--- OUTSIDE RECORDS SUMMARY | 2022-06-26 21:14 | XMS_ITS | Continuity of Care Document ---
:1990 Author Organization [facility] Address [address] [place] [address] Care Team Providers Name Role Phone Isma IZQUIERDO, Keturah Primary Care Physician Encounter [facility] Date(s): 04/07/21 - 04/07/[address] [address] Discharge Disposition: A-D/C Home Attending Physician: Fifi Ortega MD Admitting Physician: Fifi Ortega MD Referring Physician: Fifi Ortega MD Allergies, Adverse Reactions, Alerts Substance Reaction Severity Status Risperdal unkown Active Immunizations Given and Recorded Vaccine Date Status Refusal Reason influenza virus vaccine, inactivated1 07/03/19 Given 1Result Comment: [facility]# [id number] Medications calcium carbonate 500 mg (200 mg [...] 03/08/20 10:37:00 EDT, Route to Pharmacy Electronically, [facility], 170, cm, 02/22/20 20:33:00 EDT, Height, [...] Replace Required Details, Route to Pharmacy Electronically, [facility], 168, cm, 03/04/21 13:36:00 EDT, Frederic... Start Date: 03/14/21 Status: Orderedmagnesium citrate 8.85% oral liquid 300 mL = 17.45 Gm, By Mouth, Once, Use PRN after four days of no bowel movement. Repeat after 24 horus if no BM. Call PCP after 24 hours if no BM after second dose, # 300 mL, 5 Refills, Soft Stop, 12/13/20 15:34:00 EDT, Liquid, [facility], 300... Start Date: 12/13/20 Status: OrderedMelatonin [...] 15:39:00 EST, 12/11/20 15:39:00 EDT, REC Powder, [facility], Partial fill uponpatient request if the prescription is for a sche... Start Date: 12/11/20 Stop Date: 07/09/21 Status: Orderedolanzapine 10 mg oral tablet 10 mg, 1, tablet, By Mouth, Daily, Refills 0, Maintenance, 04/03/21 12:28:00 EDT, Partial fill upon patient request if the prescription is for a schedule II opioid drug. Start Date: 04/03/21 Status: OrderedoxyCODONE 5 mg oral capsule 1 capsule = 5 mg, By Mouth, Every 4 hours, PRN for pain, for 3 days, # 12 capsule, 0 Refills, Acute 04/10/21 15:54:00 EDT, 04/07/21 15:54:00 EDT, Capsule, [facility], Partial fill upon patient request if the prescription is for a schedul... Start Date: 04/07/21 Stop Date: 04/10/21 Status: OrderedOxyCODONE IR Tablet 5 mg, Tablet, By Mouth, Every 4 hours, in PACU ONLY, if patient can tolerate PO, PRN for Pain , Mild, Routine, 04/07/21 15:31:00 EDT, Stop date 04/07/21 23:00:00 EDT Start Date: 04/07/21 Stop Date: 04/07/21 Status: Completedpantoprazole 40 mg oral delayed release tablet 1 [...] 12/11/20 15:40:00 EDT, Route to Pharmacy Electronically, [facility], Partial fill upon patient request if [...] Active Tobacco abuse(Confirmed) Active Umbilical hernia(Confirmed) Active Procedures Procedure Date Related Diagnosis Body Site Status Laparoscopy, surgical, repair, ventral, 04/07/21 Completed umbilical, spigelian or epigastric hernia (includes mesh insertion, when performed); incarcerated or strangulated Vital Signs Most recent to oldest 1 2 3 [Reference Range]: Height 168 cm 168 cm (04/07/21 2:21 PM) (04/03/21 4:43 PM) Weight 85.8 kg 89 kg (04/07/21 2:21 PM) (04/03/21 4:43 PM) Oxygen Saturation [94-100 95 % 94 % 95 % %] (04/07/21 5:30 PM) (04/07/21 5:15 PM) (04/07/21 5:0 0 PM) Pulse Rate [55-90 bpm] 74 bpm (04/07/21 2:21 PM) Body Mass Index 30.4 31.53 [18.5-24.99] *>HHI* *>HHI* (04/07/21 2:21 PM) (04/03/21 4:43 PM) Blood Pressure 121/65 mm Hg 119/61 mm Hg 120/60 mm Hg [90-138/55-84 mm Hg] (04/07/21 5:30 PM) (04/07/21 5:15 PM) ( 1 5:00 PM) Respiratory Rate [16-30 16 br/min 24 br/min 20 br/mi n br/min] (04/07/21 5:35 PM) (04/07/21 5:15 PM) (04/07/21 5:0 0 PM) Temperature [96.8-100.4 98 DegF 97.9 DegF 98.7 Deg F DegF] (04/07/21 5:30 PM) (04/07/21 4:15 PM) (04/07/21 2:2 1 PM) Mode of Delivery (Oxygen) Room air Room air Room a ir (04/07/21 5:30 PM) (04/07/21 5:15 PM) (04/07/21 5:0 0 PM) Blood pressure sites Arm, right Arm, right Arm, right (04/07/21 5:30 PM) (04/07/21 4:15 PM) (04/07/21 2:2 1 PM) Temperature Route Temporal Temporal Temporal (04/07/21 5:30 PM) (04/07/21 4:15 PM) (04/07/21 2:2 1 PM) Dry Weight 85.8 kg 89 kg (04/07/21 2:21 PM) (04/03/21 4:43 PM) Weight Obtained Via Standing scale (04/07/21 2:21 PM) Dry Weight Obtained Via Standing scale Patient/family stated (04/07/21 2:21 PM) (04/03/21 4:43 PM) Social History Social History Type Response Smoking Status Former smoker, quit more padmini n 30 days ago entered on: 03/11/20 Sex Medical Equipment Implanted Date:04/07/21 Target Site:[employer] Description Quantity MRI Company Model MESH VENTRALIGHT ECHO CIR 4.5 - BARD ([id number]) 1 Bard Unknown JENNIFER: No Information Assigning Authority: FDA
--- OUTSIDE RECORDS SUMMARY | 2022-06-26 21:14 | XMS_ITS | Continuity of Care Document ---
:1990 Author Organization [facility] Address [address] [place] [address]- Care Team Providers Name Role Phone Isma IZQUIERDO, Keturah Primary Care Physician [id number] Date(s): 11/21/20 - 03/20/21 [facility] [address] [place] [phone]- Attending Physician: Keturah Ashby NP Referring Physician: Keturah Ashby NP Allergies, Adverse Reactions, Alerts Substance Reaction Severity Status Risperdal Active Immunizations Given and Recorded Vaccine Date Status Refusal Reason influenza virus vaccine, inactivated1 07/03/19 Given 1Result Comment: [facility]# [id number] Medications benztropine 1 mg oral tablet 1 mg, 1, tablet, By Mouth, 2 times a day, # 60 tablet, Refills 3, Tot. Refills 3, Maintenance, 11/21/18 9:28:36 EDT, Route to Pharmacy Electronically, [id number], [facility]/pharmacy#[id number] Start Date: 11/21/18 Stop Date: 03/21/19 Status: OrderedcloNIDine 0.1 mg oral tablet 0.1 mg, 1, tablet, By Mouth, 3 times a day, Refills 0, Maintenance, 02/02/20 11:32:00 EDT Start Date: 02/02/20 Status: OrderedDepakote 250 mg oral enteric coated tablet 1 tablet = 250 mg, By Mouth, 3 times a day, # 270 tablet, 0 Refills, Maintenance, 03/04/21 10:03:00 EDT, EC Tablet, Partial fill upon patient request if the prescription is for a schedule II opioid drug. Start Date: 03/04/21 Status: Ordereddivalproex sodium 500 mg oral enteric [...] 03/08/20 10:37:00 EDT, Route to Pharmacy Electronically, [facility], 170, cm, 02/22/20 20:33:00 EDT, Height, 80.9, kg, ... Start Date: 03/08/20 Status: OrderedHeartburn Antacid Extra Strength 0 Refills, Maintenance, 03/04/21 10:06:00 EDT, Partial fill upon patient request if the prescriptionis for a schedule II opioid drug. Start Date: 03/04/21 Status: OrderedhydrOXYzine hydrochloride 50 mg oral tablet 1 tablet = 50 mg, By Mouth, Every 4 hours, PRN for anxiety, # 40 tablet, 0 Refills, Maintenance, 02/02/20 11:36:00 EDT, Tablet Start Date: 02/02/20 Status: OrderedIbuprofen Refills 0, Maintenance, 03/04/21 10:07:00 EDT, Partial fill upon patient request if the prescriptionis for a schedule II opioid drug. Start Date: 03/04/21 Status: OrderedLinzess 145 mcg oral capsule 1 capsule = 145 mcg, By Mouth, Daily, # 90 capsule, 4 Refills, Maintenance, 09/19/20 13:00:00 EDT, Capsule, [facility], 170, cm, 09/13/20 15:29:00 EDT, Height, 88.3, kg, 09/13/20 15:29:00 EDT, Dry Weight Start Date: 09/19/20 Status: OrderedLinzess 72 mcg oral capsule 1 capsule = 72 mcg, By Mouth, Daily, do not crush or chew, # 90 capsule, 3 Refills, Maintenance, 12/25/20 13:52:00 EDT, Capsule, [facility], Partial fill upon patient request if the prescription is for a schedule II opioid drug., 168, cm, ... Start Date: 12/25/20 Status: Orderedloratadine 10 mg oral tablet See Instructions, TAKE 1 TABLET BY MOUTH DAILY, # 30 tablet, Refills 5, Tot. Refills 5, Maintenance,03/14/21 11:21:00 EDT, Instructions Replace Required Details, Route to Pharmacy Electronically, [facility], 168, cm, 03/04/21 13:36:00 EDT, Frederic... Start Date: 03/14/21 Status: Orderedmagnesium citrate 8.85% oral liquid 300 mL = 17.45 Gm, By Mouth, Once, Use PRN after four days of no bowel movement. Repeat after 24 horus if no BM. Call PCP after 24 hours if no BM after second dose, # 300 mL, 5 Refills, Soft Stop, 12/13/20 15:34:00 EDT, Liquid, [facility], 300... Start Date: 12/13/20 Status: OrderedMelatonin [...] 15:39:00 EST, 12/11/20 15:39:00 EDT, REC Powder, [facility], Partial fill uponpatient request if the [...] Gm, 2 Refills, Maintenance, 10/30/20 11:19:00 EDT, [facility], 30, MIX & DISSOLVE 17GM DOSE [...] of right shoulder(Confirmed) 08/15/20 Active Lives in penitentiary(Confirmed) Active Obesity(Confirmed) Active Pain of right humerus(Confirmed) 08/15/20 Active Annual physical exam(Confirmed) Active Tobacco abuse(Confirmed) Active Umbilical hernia(Confirmed) Active Social History Social History Type Response Smoking Status Former smoker, quit more padmini n 30 days ago entered on: 03/11/20 Sex
--- OUTSIDE RECORDS SUMMARY | 2022-06-26 21:14 | XMS_ITS | Continuity of Care Document ---
:1990 Author Organization [facility] Address [address] [place] [address]- Care Team Providers Name Role Phone Isma IZQUIERDO, Keturah Primary Care Physician Encounter [facility] Date(s): 02/11/22 - 02/12/[address] [address]- Encounter Diagnosis General medical exam (Final) - 02/11/22 Discharge Disposition: A-D/C Home Attending Physician: Darnell Ahuja MD Admitting Physician: Darnell Ahuja MD Referring Physician: Not on Staff, Referring MD Allergies, Adverse Reactions, Alerts Substance Reaction Severity Status Risperdal unkown Active Immunizations Given and Recorded Vaccine Date Status Refusal Reason SARS-CoV-2 (COVID-19) mRNA-1273 vaccine 06/09/21 Recorded SARS-CoV-2 (COVID-19) mRNA-1273 vaccine 04/17/21 Recorded influenza virus vaccine, inactivated 04/17/21 Recorded influenza virus vaccine, inactivated1 07/03/19 Given 1Result Comment: [facility]# [id number] Medications Ativan 2 mg oral tablet 1 [...] 0 Refills, Maintenance, 06/26/21 10:58:00 EST, Liquid, [facility], Partial fill upon patient request if [...] 0 Refills, Maintenance, 02/03/22 15:20:00 EDT, Suppository, [email or web address]-[id number], Partial fill upon patient request if the prescri... Start Date: 02/03/22 Status: OrderedFLUoxetine 20 mg oral capsule 40 mg, 2, capsule, By Mouth, Daily, 2 capsules to equal 40 mg daily., # 60 capsule, Refills 5, Tot. Refills 5, Maintenance, 03/08/20 10:37:00 EDT, Route to Pharmacy Electronically, [facility], 170, cm, 02/22/20 20:33:00 EDT, Height, 80.9, kg, ... Start Date: 03/08/20 Status: Orderedlidocaine 5% topical film 1 patch, Topically, Daily, PRN Pain , Mild, remove after 12 hours, # 30 patch, 3 Refills, Maintenance, 08/27/21 16:03:00 EDT, Film, [facility]- [address]69, Partial fill upon patient requestif the prescription is for a schedule II opioid d... Start Date: 08/27/21 Status: OrderedLinzess 145 mcg oral capsule 1 capsule, By Mouth, Daily in AM, # 30 capsule, 0 Refills, [place] [id number], 168, cm, 228:41:00 EDT, Height, 85.8, kg, 04/07/21 14:21:00 EDT, Dry Weight Start Date: 01/08/22 Status: Orderedloratadine 10 mg oral tablet See Instructions, TAKE 1 TABLET BY MOUTH DAILY IN THE MORNING, # 30 tablet, Refills 5, Tot. Refills 5, 12/24/21 14:55:00 EDT, Instructions Replace Required Details, Route to Pharmacy Electronically, [place] [id number], 168, cm, ... Start Date: 12/24/21 Status: Orderedmagnesium citrate 8.85% oral liquid 17 grams, By Mouth, Once, Use PRN after four days of no bowel movement. Repeat after 24 hours if no BM. Call PCP after 24 hours if no BM after second dose, # 68 Gm, 5 Refills, Soft Stop, 08/07/21 13:25:00 EST, Liquid, [facility], 17 grams By Mo... Start Date: 08/07/21 Status: Orderedmagnesium citrate 8.85% oral liquid 17 grams, By Mouth, Once, Use PRN after four days of no bowel movement. Repeat after 24 hours if no BM. Call PCP after 24 hours if no BM after second dose, # 68 Gm, 1 Refills, Soft Stop, 02/04/22 15:33:00 EDT, Liquid, [facility]-00... Start Date: 02/04/22 Status: OrderedMelatonin 5 mg [...] Refills, Maintenance, 12/05/21 16:01:00 EDT, EC Capsule, [facility]-54031, Partial fill upon patient request if the prescription isfor a schedule II opioid drug., 168, cm, 11/20/21... Start Date: 12/05/21 Status: OrderedPeri-Colace 50 mg-8.6 mg oral tablet 2 tablet, By Mouth, Daily at bedtime, for 30 days, # 60 tablet, 5 Refills, Acute 05/19/22 10:38:00 EST, 11/20/21 10:38:00 EDT, Tablet, [facility]-44781, Partial fill upon patient request if the prescription is for a schedule II opioi... Start Date: 11/20/21 Stop Date: 05/19/22 Status: Orderedpolyethylene glycol 3350 oral powder for reconstitution See Instructions, MIX & DISSOLVE 17GM DOSE IN 4 TO 8 OUNCES OF WATER, DRINK THE SOLUTION ONCE A DAY NEEDED FOR CONSTIPATION, # 510 Gm, 2 Refills, Maintenance, 02/04/22 15:24:00 EDT, [facility]-11957, 30, MIX & DISSOLVE 17GM DOSE I... Start Date: 02/04/22 Status: OrderedSEROquel 200 mg oral tablet 600 [...] Active Vital Signs Most recent to oldest 1 2 3 [Reference Range]: Oxygen Saturation [94-100 %] 94 % 99 % 92 % (02/12/22 8:37 AM) (02/12/22 12:42 AM) *L* (02/11/22 11:52 PM ) Pulse Rate [55-90 bpm] 75 bpm 73 bpm 89 bpm (02/12/22 8:37 AM) (02/12/22 12:42 AM) (02/11/22 11:52 PM) Blood Pressure [90-138/55-84 mm 126/62 mm Hg 121/66 mm Hg 113/69 mm Hg Hg] (02/12/22 8:37 AM) (02/12/22 12:42 AM) (02/11/22 11:52 PM) Respiratory Rate [16-30 br/min] 17 br/min 16 br/min 14 br/min (02/12/22 8:37 AM) (02/12/22 12:42 AM) *L* (02/11/22 11:52 PM ) Temperature [96.8-100.4 DegF] 98.3 DegF 98.4 DegF 98 .3 DegF (02/12/22 8:37 AM) (02/12/22 12:42 AM) (02/11/22 11:52 PM) Mode of Delivery (Oxygen) Room air Room air Room a ir (02/12/22 12:42 AM) (02/11/22 11:52 PM) (02/11/22 6:45 PM) Blood pressure sites Arm, left Arm, left Arm, left (02/12/22 12:42 AM) (02/11/22 11:52 PM) (02/11/22 6:45 PM) Temperature Route Oral Oral Oral (02/12/22 12:42 AM) (02/11/22 11:52 PM) (02/11/22 6:45 PM) Social History Social History Type Response [...] Unknown Unknown 01/01/23 Unknown Unknown Active Unknown Care Team PersonnelName: Isma IZQUIERDO, Keutrah Address: [address] [place] [id number]
--- OUTSIDE RECORDS SUMMARY | 2022-06-26 21:14 | XMS_ITS | Continuity of Care Document ---
:1990 Author Organization [facility] Address [address] [place] [address]- Care Team Providers Name Role Phone Diego Ibarra Primary Care Physician Encounter [facility] Date(s): 09/20/20 - 10/20/20 [facility] [address] [place] [id number] Allergies, Adverse Reactions, Alerts Substance Reaction Severity Status Risperdal Active Immunizations Given and Recorded Vaccine Date Status Refusal Reason influenza virus vaccine, inactivated1 07/03/19 Given 1Result Comment: [facility]# [id number] Medications benztropine 1 mg oral tablet 1 mg, 1, tablet, By Mouth, 2 times a day, # 60 tablet, Refills 3, Tot. Refills 3, Maintenance, 11/21/18 9:28:36 EDT, Route to Pharmacy Electronically, [id number], [facility]/pharmacy#[id number] Start Date: 11/21/18 Stop Date: 03/21/19 Status: [...] 5 Refills, Maintenance, 06/04/20 9:18:00 EST, Capsule, [facility], To replace 50 mg capsules, 170, [...] 03/08/20 10:37:00 EDT, Route to Pharmacy Electronically, [facility], 170, cm, 02/22/20 20:33:00 EDT, Height, [...] 4 Refills, Maintenance, 09/19/20 13:00:00 EDT, Capsule, [id number], 170, cm, 09/13/20 15:29:00 EDT, Height, 88.3, kg, 09/13/20 15:29:00 EDT, Dry Weight Start Date: 09/19/20 Status: Orderedloratadine 10 mg oral tablet 10 mg, 1, tablet, By Mouth, Daily, for 30 days, # 30 tablet, Refills 6, Tot. Refills 6, Hard Stop 10/23/20 10:07:00 EDT, 03/27/20 10:07:00 EDT, Route to Pharmacy Electronically, [facility], 170, cm, 02/22/20 20:33:00 EDT, Height, [...] 10/23/20 10:07:00 EDT, Route to Pharmacy Electronically, [facility], 170, cm, 09/02/20 15:24:00 EDT, Height,86.6, [...] Refills, Soft Stop, 03/21/20 14:01:00 EDT, Liquid, [facility], 300... Start Date: 03/21/20 Status: Orderedmagnesium citrate 8.85% oral liquid 150 mL = 8.725 Gm, By Mouth, Once, # 300 mL, 0 Refills, Soft Stop, 09/20/20 15:27:00 EDT, Liquid, [facility] #[id number], Partial fill upon patient request if the [...] Refills, Acute 08/03/23 11:00:00EST, 08/02/20 8:59:00 EST, [facility], 28, 1 patch Topically Daily,Instr:ROTATE APPLICATION [...] Stop 12/19/20 16:38:00 EDT, 09/17/20 16:38:00 EDT, [facility], 30, MIX & DISSOLVE 17GM... Start Date: 09/17/20 Stop Date: 7/15/21 Status: OrderedZyPREXA 15 mg oral tablet 1 [...]
--- OUTSIDE RECORDS SUMMARY | 2022-06-26 21:14 | XMS_ITS | Continuity of Care Document ---
:1990 Author Organization [facility] Address [address] [place] [address]- Care Team Providers Name Role Phone Isma IZQUIERDO, Keturah Primary Care Physician Encounter [facility] NBR [id number] Date(s): 07/21/21 - 07/28/21 [facility] [address] [place] [address]- Encounter Diagnosis Bipolar disorder (Discharge Diagnosis) - 07/21/21 Intermittent explosive disorder in adult (Discharge Diagnosis) - 07/21/21 Attending Physician: Delmis Yu NP Allergies, Adverse Reactions, Alerts Substance Reaction Severity Status Risperdal unkown Active Immunizations Given and Recorded Vaccine Date Status Refusal Reason influenza virus vaccine, inactivated1 07/03/19 Given 1Result Comment: [facility]# [id number] Medications calcium carbonate 500 mg (200 mg [...] Replace Required Details, Route to Pharmacy Electronically, [facility], 168, cm, 03/04/21 13:36:00 EDT, Frederic... Start Date: 03/14/21 Status: Orderedmagnesium citrate 8.85% oral liquid 300 mL = 17.45 Gm, By Mouth, Once, Use PRN after four days of no bowel movement. Repeat after 24 hours if no BM. Call PCP after 24 hours if no BM after second dose, # 300 mL, 5 Refills, Soft Stop, 06/26/21 10:49:00 EST, Liquid, [facility], 300... Start Date: 06/26/21 Status: OrderedMelatonin [...] Gm, 2 Refills, Maintenance, 10/30/20 11:19:00 EDT, [facility], 30, MIX & DISSOLVE 17GM DOSE [...] of right shoulder(Confirmed) 08/15/20 Active Lives in correction(Confirmed) Active Obesity(Confirmed) Active Pain of right humerus(Confirmed) 08/15/20 Active Annual physical exam(Confirmed) Active Tobacco abuse(Confirmed) Active Umbilical hernia(Confirmed) Active Diagnosis Diagnosis Type Effective Dates Health Clinical Infor [facility] Status Service Bipolar disorder Discharge 07/21/21 Diagnosis Intermittent Discharge 07/21/21 explosive disorder Diagnosis in adult Vital Signs Most recent to oldest [Reference Range]: 1 Height 168 cm (07/21/21 12:32 PM) Weight 83.1 kg (07/21/21 12:32 PM) Oxygen Saturation [94-100 %] 98 % (07/21/21 12:32 PM) Pulse Rate [55-90 bpm] 98 bpm *H* (07/21/21 12:32 PM) Body Mass Index [18.5-24.99] 29.44 *H* (07/21/21 12:32 PM) Blood Pressure [90-138/55-84 mm Hg] 122/70 mm Hg (07/21/21 12:32 PM) Respiratory Rate [16-30 br/min] 16 br/min (07/21/21 12:32 PM) Temperature [96.8-100.4 DegF] 98.0 DegF (07/21/21 12:32 PM) Mode of Delivery (Oxygen) Room air (07/21/21 12:32 PM) Blood pressure sites Arm, left (07/21/21 12:32 PM) Temperature Route Temporal (07/21/21 12:32 PM) Weight Obtained Via Standing scale (07/21/21 12:32 PM) Social History Social History Type Response Smoking Status Former smoker, quit more padmini n 30 days ago entered on: 03/11/20 Sex Medical Equipment Implanted Date:04/07/21 Target Site:[employer] Description Quantity MRI Company Model MESH VENTRALIGHT ECHO CIR 4.5 - BARD ([id number]) 1 Bard Unknown JENNIFER: No Information Assigning Authority: FDA
--- OUTSIDE RECORDS SUMMARY | 2022-06-26 21:14 | XMS_ITS | Continuity of Care Document ---
:1990 Author Organization [facility] Address [address] [place] [address]- Care Team Providers Name Role Phone Diego Ibarra Primary Care Physician Encounter [facility] NBR [id number] Date(s): 09/12/20 - 11/09/20 [facility] [address] [place] [address]- Attending Physician: Daren WHITE, Carmelo Watts Referring Physician: Diego Ibarra Allergies, Adverse Reactions, Alerts Substance Reaction Severity Status Risperdal Active Immunizations Given and Recorded Vaccine Date Status Refusal Reason influenza virus vaccine, inactivated1 07/03/19 Given 1Result Comment: [facility]# [id number] Medications benztropine 1 mg oral tablet 1 mg, 1, tablet, By Mouth, 2 times a day, # 60 tablet, Refills 3, Tot. Refills 3, Maintenance, 11/21/18 9:28:36 EDT, Route to Pharmacy Electronically, [id number], [facility]/pharmacy#[id number] Start Date: [...] 5 Refills, Maintenance, 10/30/20 11:18:00 EDT, Capsule, [facility], To replace 50 mg capsules, 168, [...] 03/08/20 10:37:00 EDT, Route to Pharmacy Electronically, [facility], 170, cm, 02/22/20 20:33:00 EDT, Height, [...] 4 Refills, Maintenance, 09/19/20 13:00:00 EDT, Capsule, [facility]35067, 170, cm, 09/13/20 15:29:00 EDT, Height, 88.3, [...] 10/23/20 10:07:00 EDT, Route to Pharmacy Electronically, [facility], 170, cm, 09/02/20 15:24:00 EDT, Height,86.6, [...] Refills, Soft Stop, 03/21/20 14:01:00 EDT, Liquid, [facility], 300... Start Date: 03/21/20 Status: Orderedmagnesium citrate 8.85% oral liquid 150 mL = 8.725 Gm, By Mouth, Once, # 300 mL, 0 Refills, Soft Stop, 09/20/20 15:27:00 EDT, Liquid, [facility] #[id number], Partial fill upon patient request if the [...] 3 Refills, Maintenance, 10/30/20 11:19:00 EDT, Capsule, [facility], Partial fill upon patient request if [...]
--- OUTSIDE RECORDS SUMMARY | 2022-06-26 21:15 | XMS_ITS | Continuity of Care Document ---
:1990 Author Organization [facility] Address Unavailable , Care Team Providers Name Role Phone Isma IZQUIERDO, Keturah Primary Care Physician Encounter [facility] Date(s): 06/26/21 - 07/03/21 [facility] Encounter Diagnosis Supraumbilical hernia (Discharge Diagnosis) - 06/26/21 Attending Physician: Nahun Molina Referring Physician: Keturah Ashby NP Allergies, Adverse Reactions, Alerts Substance Reaction Severity Status Risperdal unkown Active Immunizations Given and Recorded Vaccine Date Status Refusal Reason influenza virus vaccine, inactivated1 07/03/19 Given 1Result Comment: [facility]# [id number] Medications calcium carbonate 500 mg (200 mg [...] 03/08/20 10:37:00 EDT, Route to Pharmacy Electronically, [facility], 170, cm, 02/22/20 20:33:00 EDT, Height, [...] 4 Refills, Maintenance, 03/26/21 16:53:00 EDT, Capsule, [facility], 168, cm, 03/04/21 13:36:00 EDT, Height, 83.3, kg, 10/24/20 17:15:00 EDT, DryWeight Start Date: 03/26/21 Status: Orderedloratadine 10 mg oral tablet See Instructions, TAKE 1 TABLET BY MOUTH DAILY, # 30 tablet, Refills 5, Tot. Refills 5, Maintenance,03/14/21 11:21:00 EDT, Instructions Replace Required Details, Route to Pharmacy Electronically, [facility], 168, cm, 03/04/21 13:36:00 EDT, Heigh... Start Date: 03/14/21 Status: Orderedmagnesium citrate 8.85% oral liquid 300 mL = 17.45 Gm, By Mouth, Once, Use PRN after four days of no bowel movement. Repeat after 24 hours if no BM. Call PCP after 24 hours if no BM after second dose, # 300 mL, 5 Refills, Soft Stop, 06/26/21 10:49:00 EST, Liquid, [facility], 300... Start Date: 06/26/21 Status: OrderedMelatonin [...] 15:39:00 EST, 12/11/20 15:39:00 EDT, REC Powder, [facility], Partial fill uponpatient request if the [...] 12/11/20 15:40:00 EDT, Route to Pharmacy Electronically, [facility], Partial fill upon patient request if [...] of right shoulder(Confirmed) 08/15/20 Active Lives in custodial(Confirmed) Active Obese class I(Confirmed) Active Obesity(Confirmed) Active Pain of right humerus(Confirmed) 08/15/20 Active Annual physical exam(Confirmed) Active Tobacco abuse(Confirmed) Active Umbilical hernia(Confirmed) Active Diagnosis Diagnosis Type Effective Dates Health Clinical Infor mant Status Service Supraumbilical Discharge 06/26/21 hernia Diagnosis Vital Signs Most recent to oldest [Reference Range]: 1 Height 168 cm (06/26/21 1:19 PM) Weight 88.6 kg (06/26/21 1:19 PM) Pulse Rate [55-90 bpm] 79 bpm (06/26/21 1:19 PM) Body Mass Index [18.5-24.99] 31.39 *>HHI* (06/26/21 1:19 PM) Blood Pressure [90-138/55-84 mm Hg] 111/74 mm Hg (06/26/21 1:19 PM) Respiratory Rate [16-30 br/min] 16 br/min (06/26/21 1:19 PM) Temperature [96.8-100.4 DegF] 97.6 DegF (06/26/21 1:19 PM) Blood pressure sites Arm, left (06/26/21 1:19 PM) Temperature Route Temporal (06/26/21 1:19 PM) Weight Obtained Via Standing scale (06/26/21 1:19 PM) Social History Social History Type Response Smoking Status Former smoker, quit more padmini n 30 days ago entered on: 03/11/20 Sex Medical Equipment Implanted Date:04/07/21 Target Site:[employer] Description Quantity MRI Company Model MESH VENTRALIGHT ECHO CIR 4.5 - BARD ([id number]) 1 Bard Unknown JENNIFER: No Information Assigning Authority: FDA
--- OUTSIDE RECORDS SUMMARY | 2022-06-26 21:15 | XMS_ITS | Continuity of Care Document ---
:1990 Author Organization [facility] Address [address] [phone]- Care Team Providers Name Role Phone Isma IZQUIERDO, Keturah Primary Care Physician Encounter [facility] NBR [id number] Date(s): 01/06/22 - 02/05/22 [facility] [address] [place] [address]- Allergies, Adverse Reactions, Alerts Substance Reaction Severity Status Risperdal unkown Active Immunizations Given and Recorded Vaccine Date Status Refusal Reason SARS-CoV-2 (COVID-19) mRNA-1273 vaccine 06/09/21 Recorded SARS-CoV-2 (COVID-19) mRNA-1273 vaccine 04/17/21 Recorded influenza virus vaccine, inactivated 04/17/21 Recorded influenza virus vaccine, inactivated1 07/03/19 Given 1Result Comment: [facility]# [id number] Medications Ativan 2 mg oral tablet 1 [...] 0 Refills, Maintenance, 02/03/22 15:20:00 EDT, Suppository, [facility]-[id number], Partial fill upon patient request if the prescri... Start Date: 02/03/22 Status: OrderedFLUoxetine 20 mg oral capsule 40 mg, 2, capsule, By Mouth, Daily, 2 capsules to equal 40 mg daily., # 60 capsule, Refills 5, Tot. Refills 5, Maintenance, 03/08/20 10:37:00 EDT, Route to Pharmacy Electronically, [facility], 170, cm, 02/22/20 20:33:00 EDT, Height, 80.9, kg, ... Start Date: 03/08/20 Status: Orderedlidocaine 5% topical film 1 patch, Topically, Daily, PRN Pain , Mild, remove after 12 hours, # 30 patch, 3 Refills, Maintenance, 08/27/21 16:03:00 EDT, [facility], Partial fill upon patient requestif the prescription is for a schedule II opioid d... Start Date: 08/27/21 Status: OrderedLinzess 145 mcg oral capsule 1 capsule, By Mouth, Daily in AM, # 30 capsule, 0 Refills, [place] [id number], 168, cm, :41:00 EDT, Height, 85.8, kg, 04/07/21 14:21:00 EDT, Dry Weight Start Date: 01/08/22 Status: Orderedloratadine 10 mg oral tablet See Instructions, TAKE 1 TABLET BY MOUTH DAILY IN THE MORNING, # 30 tablet, Refills 5, Tot. Refills 5, 12/24/21 14:55:00 EDT, Instructions Replace Required Details, Route to Pharmacy Electronically, [facility]-60923, 168, cm, ... Start Date: 12/24/21 Status: Orderedmagnesium citrate 8.85% oral liquid 17 grams, By Mouth, Once, Use PRN after four days of no bowel movement. Repeat after 24 hours if no BM. Call PCP after 24 hours if no BM after second dose, # 68 Gm, 5 Refills, Soft Stop, 08/07/21 13:25:00 EST, Liquid, [facility], 17 grams By Mo... Start Date: 08/07/21 Status: Orderedmagnesium citrate 8.85% oral liquid 17 grams, By Mouth, Once, Use PRN after four days of no bowel movement. Repeat after 24 hours if no BM. Call PCP after 24 hours if no BM after second dose, # 68 Gm, 1 Refills, Soft Stop, 02/04/22 15:33:00 EDT, Liquid, [facility]-00... Start Date: 02/04/22 Status: OrderedMelatonin 5 mg [...] Refills, Maintenance, 12/05/21 16:01:00 EDT, EC Capsule, [facility]-85848, Partial fill upon patient request if the prescription isfor a schedule II opioid drug., 168, cm, 11/20/21... Start Date: 12/05/21 Status: OrderedPeri-Colace 50 mg-8.6 mg oral tablet 2 tablet, By Mouth, Daily at bedtime, for 30 days, # 60 tablet, 5 Refills, Acute 05/19/22 10:38:00 EST, 11/20/21 10:38:00 EDT, Tablet, [facility]-67922, Partial fill upon patient request if the prescription is for a schedule II opioi... Start Date: 11/20/21 Stop Date: 05/19/22 Status: Orderedpolyethylene glycol 3350 oral powder for reconstitution See Instructions, MIX & DISSOLVE 17GM DOSE IN 4 TO 8 OUNCES OF WATER, DRINK THE SOLUTION ONCE A DAY NEEDED FOR CONSTIPATION, # 510 Gm, 2 Refills, Maintenance, 02/04/22 15:24:00 EDT, [facility]-26892, 30, MIX & DISSOLVE 17GM DOSE I... [...] Active Unknown Care Team PersonnelName: Isma IZQUIERDO, Keturah Address: [address] [place] [address]
--- OUTSIDE RECORDS SUMMARY | 2022-06-26 21:15 | XMS_ITS | Continuity of Care Document ---
:1990 Author Organization [facility] Address [address] [place] [address]- Care Team Providers Name Role Phone Isma IZQUIERDO, Keturah Primary Care Physician Encounter [facility] Date(s): 02/04/21 - 02/11/21 [facility] [address] [place] [phone]- Encounter Diagnosis Umbilical hernia (Discharge Diagnosis) - 02/04/21 Attending Physician: Keturah Ashby NP Referring Physician: Keturah Ashby NP Allergies, Adverse Reactions, Alerts Substance Reaction Severity Status Risperdal Active Immunizations Given and Recorded Vaccine Date Status Refusal Reason influenza virus vaccine, inactivated1 07/03/19 Given 1Result Comment: [facility]# [id number] Medications benztropine 1 mg oral tablet 1 mg, 1, tablet, By Mouth, 2 times a day, # 60 tablet, Refills 3, Tot. Refills 3, Maintenance, 11/21/18 9:28:36 EDT, Route to Pharmacy Electronically, [id number], [facility]/pharmacy#[id number] Start Date: 11/21/18 Stop Date: 03/21/19 [...] 5 Refills, Maintenance, 10/30/20 11:18:00 EDT, Capsule, [facility], To replace 50 mg capsules, 168, [...] 03/08/20 10:37:00 EDT, Route to Pharmacy Electronically, [facility], 170, cm, 02/22/20 20:33:00 EDT, Height, [...] 4 Refills, Maintenance, 09/19/20 13:00:00 EDT, Capsule, [facility], 170, cm, 09/13/20 15:29:00 EDT, Height, 88.3, kg, 09/13/20 15:29:00 EDT, Dry Weight Start Date: 09/19/20 Status: OrderedLinzess 72 mcg oral capsule 1 capsule = 72 mcg, By Mouth, Daily, do not crush or chew, # 90 capsule, 3 Refills, Maintenance, 12/25/20 13:52:00 EDT, Capsule, [facility], Partial fill upon patient request if [...] 10/23/20 10:07:00 EDT, Route to Pharmacy Electronically, [facility], 170, cm, 09/02/20 15:24:00 EDT, Height,86.6, [...] Refills, Soft Stop, 12/13/20 15:34:00 EDT, Liquid, [facility], 300... Start Date: 12/13/20 Status: OrderedMelatonin [...] 15:39:00 EST, 12/11/20 15:39:00 EDT, REC Powder, [facility], Partial fill uponpatient request if the [...] Gm, 2 Refills, Maintenance, 10/30/20 11:19:00 EDT, [facility], 30, MIX & DISSOLVE 17GM DOSE [...] 12/11/20 15:40:00 EDT, Route to Pharmacy Electronically, [facility], Partial fill upon patient request if [...] Annual physical exam(Confirmed) Active Tobacco abuse(Confirmed) Active Diagnosis Diagnosis Type Effective Dates Health Status Clinical In formant Service Umbilical hernia Discharge 02/04/21 Diagnosis Vital Signs Most recent to oldest [Reference Range]: 1 Height 168 cm (02/04/21 11:08 AM) Weight 87.2 kg (02/04/21 11:08 AM) Oxygen Saturation [94-100 %] 97 % (02/04/21 11:08 AM) Pulse Rate [55-90 bpm] 95 bpm *H* (02/04/21 11:08 AM) Body Mass Index [18.5-24.99] 30.9 *>HHI* (02/04/21 11:08 AM) Blood Pressure [90-138/55-84 mm Hg] 118/72 mm Hg (02/04/21 11:08 AM) Respiratory Rate [16-30 br/min] 17 br/min (02/04/21 11:08 AM) Temperature [96.8-100.4 DegF] 99.3 DegF (02/04/21 11:08 AM) Liters per Minute 0 L/min (02/04/21 11:08 AM) Mode of Delivery (Oxygen) Room air (02/04/21 11:08 AM) Blood pressure sites Arm, left (02/04/21 11:08 AM) Temperature Route Temporal (02/04/21 11:08 AM) Weight Obtained Via Standing scale (02/04/21 11:08 AM) Social History Social History Type Response Smoking Status Former smoker, quit more padmini n 30 days ago entered on: 03/11/20 Sex
--- OUTSIDE RECORDS SUMMARY | 2022-06-26 21:15 | XMS_ITS | Continuity of Care Document ---
:1990 Author Organization [facility] Address [address] [place] [address]- Care Team Providers Name Role Phone Isma IZQUIERDO, Keturah Primary Care Physician Encounter [facility] Date(s): 07/23/21 - 08/22/21 [facility] [address] [place] [phone]- [place] Allergies, Adverse Reactions, Alerts Substance Reaction Severity Status Risperdal unkown Active Immunizations Given and Recorded Vaccine Date Status Refusal Reason influenza virus vaccine, inactivated1 07/03/19 Given 1Result Comment: [facility]# [id number] Medications calcium carbonate 500 mg (200 mg [...] 03/08/20 10:37:00 EDT, Route to Pharmacy Electronically, [facility], 170, cm, 02/22/20 20:33:00 EDT, Height, 80.9, kg, ... Start Date: 03/08/20 Status: Orderedibuprofen 600 mg oral tablet 600 mg, By Mouth, Every 6 hours, PRN, for 30 days, # 120 tablet, Refills 0, Tot. Refills 0, Acute 09/05/21 16:33:00 EDT, Pain , Moderate, 08/06/21 16:33:00 EST, [facility], Partial fill upon patient request if th... [...] Replace Required Details, Route to Pharmacy Electronically, [facility], 168, cm, 07/21/21 12:32:00 EST, Height, [...] Refills, Soft Stop, 08/07/21 13:25:00 EST, Liquid, [facility], 17 grams By Mo... Start Date: [...] Gm, 2 Refills, Maintenance, 10/30/20 11:19:00 EDT, [facility], 30, MIX & DISSOLVE 17GM DOSE [...] MESH VENTRALIGHT ECHO CIR 4.5 - BARD ([id number]) 1 Bard Unknown JENNIFER: No Information Assigning Authority: FDA
--- OUTSIDE RECORDS SUMMARY | 2022-06-26 21:15 | XMS_ITS | Continuity of Care Document ---
:1990 Author Organization [facility] Address [address] [place] [address]- Care Team Providers Name Role Phone Anthony IZQUIERDO, Jennie M Primary Care Physician Encounter [facility] [place] [place] Date(s): 11/11/19 - 11/14/[address] [address]- [facility] Discharge Disposition: Transfer to [facility] Facility Attending Physician: Nataliya Soler MD Admitting Physician: Nataliya Soler MD Referring Physician: Not on Staff, Referring MD Allergies, Adverse Reactions, Alerts Substance Reaction Severity Status Risperdal Active Immunizations Given and Recorded Vaccine Date Status Refusal Reason influenza virus vaccine, inactivated1 07/03/19 Given 1Result Comment: [facility]# [id number] Medications benztropine 1 mg oral tablet 1 mg, 1, tablet, By Mouth, 2 times a day, # 60 tablet, Refills 3, Tot. Refills 3, Maintenance, 11/21/18 9:28:36 EDT, Route to Pharmacy Electronically, [id number], [facility]/pharmacy#[id number] Start Date: 11/21/18 Stop Date: 03/21/19 Status: Ordereddocusate sodium 50 mg oral capsule 1 capsule = 50 mg, By Mouth, 2 times a day, 0 Refills, Maintenance, 06/21/18 14:04:28 EST Start Date: 06/21/18 Status: OrderedFLUoxetine 20 mg oral capsule 40 mg, 2, capsule, By Mouth, Daily, 2 capsules to equal 40 mg daily., # 60 capsule, Refills 5, Tot. Refills 5, Maintenance, 11/21/18 9:26:51 EDT, Route to Pharmacy Electronically, [id number], [facility]/pharmacy #[id number] Start Date: 11/21/18 Status: OrderedLinzess 145 mcg oral capsule 1 capsule = 145 mcg, By Mouth, Daily, # 90 capsule, 4 Refills, Maintenance, 09/27/19 14:06:00 EDT, Capsule, [facility] #[id number], 169, cm, 07/03/19 16:03:00 EST, Height Start Date: 09/27/19 Status: Orderedloratadine 10 mg oral tablet 10 mg, 1, tablet, By Mouth, Daily, # 30 tablet, Refills 6, Tot. Refills 6, Maintenance, 08/30/19 10:07:00 EDT, Route to Pharmacy Electronically, [facility] #[id number], 169, cm, 07/03/19 16:03:00 EST, Height Start Date: 08/30/19 Stop Date: 03/27/20 Status: OrderedMelatonin 5 mg oral tablet 1 tablet = 5 mg, By Mouth, Daily at bedtime, 0 Refills, Maintenance, 06/21/18 14:05:10 EST Start Date: 06/21/18 Status: OrderedMultivitamin Daily, 0 Refills, Maintenance, 06/21/18 [...] 16:03:00 EST, Height Start Date: 09/27/19 Status: Ordered Problem List Condition Effective Dates Status Health Status Informant Allergic rhinitis(Confirmed) Active Chronic constipation(Confirmed) Active Developmental disability(Confirmed) Active Intermittent explosive disorder in Active adult(Confirmed) Chronic GERD(Confirmed) Active Annual physical exam(Confirmed) Active Vital Signs Most recent to oldest [Reference 1 2 3 Range]: Oxygen Saturation [94-100 %] 99 % 99 % 99 % (11/14/19 2:17 PM) (11/14/19 6:58 AM) (11/13/19 9:20 P M) Pulse Rate [55-90 bpm] 102 bpm 55 bpm 74 bpm *H* (11/14/19 6:58 AM) (11/13/19 9:20 PM ) (11/14/19 2:17 PM) Blood Pressure [90-138/55-84 mm 117/81 mm Hg 109/72 mm Hg 100/74 mm Hg Hg] (11/14/19 2:17 PM) (11/14/19 6:58 AM) (11/13/19 9:20 P M) Respiratory Rate [16-30 br/min] 18 br/min 18 br/min 16 br/min (11/14/19 2:17 PM) (11/14/19 6:58 AM) (11/13/19 9:20 P M) Temperature [96.8-100.4 DegF] 97.7 DegF 97.9 DegF 97 .9 DegF (11/14/19 2:17 PM) (11/13/19 1:23 PM) (11/13/19 8:44 A M) Mode of Delivery (Oxygen) Room air Room air Room a ir (11/14/19 2:17 PM) (11/14/19 6:58 AM) (11/13/19 9:20 P M) Blood pressure sites Arm, right Arm, right Arm, right (11/14/19 2:17 PM) (11/14/19 6:58 AM) (11/13/19 9:20 P M) Temperature Route Oral Oral Axillary (11/14/19 2:17 PM) (11/13/19 1:23 PM) (11/13/19 8:44 A M) Social History Social History Type Response Smoking Status Former smoker, quit more padmini n 30 days ago; Tobacco user in household: No; Type: Cigarettes; Previous treatment: None; Interested in cessation: No entered on: 06/21/18 Sex
--- OUTSIDE RECORDS SUMMARY | 2022-06-26 21:15 | XMS_ITS | Continuity of Care Document ---
:1990 Author Organization [facility] Address [address] [place] [address]- Care Team Providers Name Role Phone Isma IZQUIERDO, Keturah Primary Care Physician Encounter [facility] Date(s): 09/18/20 - 12/22/[address] [address]- Encounter Diagnosis Pain in right shoulder (Final) - Discharge Disposition: A-D/C Home Attending Physician: Carmelo Mercedes MD Admitting Physician: Carmelo Mercedes MD Referring Physician: Carmelo Mercedes MD Allergies, Adverse Reactions, Alerts Substance Reaction Severity Status Risperdal Active Immunizations Given and Recorded Vaccine Date Status Refusal Reason influenza virus vaccine, inactivated1 07/03/19 Given 1Result Comment: [facility]# [id number] Medications benztropine 1 mg oral tablet 1 mg, 1, tablet, By Mouth, 2 times a day, # 60 tablet, Refills 3, Tot. Refills 3, Maintenance, 11/21/18 9:28:36 EDT, Route to Pharmacy Electronically, [id number], [facility]/pharmacy#[id number] Start Date: 11/21/18 Stop Date: [...] 5 Refills, Maintenance, 10/30/20 11:18:00 EDT, Capsule, [facility], To replace 50 mg capsules, 168, cm, 10/30/20 11:05:00 EDT, Height, 83.3, kg, 10/24/20 17:15:00 ED... Start Date: 10/30/20 Status: OrderedDulcolax 10 mg rectal suppository 1 supp = 10 mg, Rectally, Daily, PRN for constipation, # 10 supp, 0 Refills, Maintenance, 09/13/20 13:08:00 EDT, Suppository, [facility], Partial fill upon patient request if the prescription is for a schedule II opioid drug., 170, cm, 09/13/20 1... Start Date: 09/13/20 Status: OrderedFLUoxetine 20 mg oral capsule 40 mg, 2, capsule, By Mouth, Daily, 2 capsules to equal 40 mg daily., # 60 capsule, Refills 5, Tot. Refills 5, Maintenance, 03/08/20 10:37:00 EDT, Route to Pharmacy Electronically, [facility], 170, cm, 02/22/20 20:33:00 EDT, Height, [...] 4 Refills, Maintenance, 09/19/20 13:00:00 EDT, Capsule, [facility], 170, cm, 09/13/20 15:29:00 EDT, Height, 88.3, [...] 10/23/20 10:07:00 EDT, Route to Pharmacy Electronically, [facility], 170, cm, 09/02/20 15:24:00 EDT, Height,86.6, [...] Refills, Soft Stop, 12/13/20 15:34:00 EDT, Liquid, [facility], 300... Start Date: 12/13/20 Status: OrderedMelatonin [...] 15:39:00 EST, 12/11/20 15:39:00 EDT, REC Powder, [facility], Partial fill uponpatient request if the [...] Gm, 2 Refills, Maintenance, 10/30/20 11:19:00 EDT, [facility], 30, MIX & DISSOLVE 17GM DOSE [...] 12/11/20 15:40:00 EDT, Route to Pharmacy Electronically, [facility], Partial fill upon patient request if [...] Chronic GERD(Confirmed) Active Injury of right shoulder(Confirmed) 3/11/21 Active Pain of right humerus(Confirmed) 08/15/20 Active Annual physical exam(Confirmed) Active Tobacco abuse(Confirmed) Active Social History Social History Type Response Smoking Status Former smoker, quit more padmini n 30 days ago entered on: 03/11/20 Sex
--- OUTSIDE RECORDS SUMMARY | 2022-06-26 21:15 | XMS_ITS | Continuity of Care Document ---
:1990 Author Organization [facility] Address [address] [place] [address]- Care Team Providers Name Role Phone Diego Ibarra Primary Care Physician Encounter [facility] Date(s): 03/07/20 - 04/06/20 [facility] [address] [place] [address]- Allergies, Adverse Reactions, Alerts Substance Reaction Severity Status Risperdal Active Immunizations Given and Recorded Vaccine Date Status Refusal Reason influenza virus vaccine, inactivated1 07/03/19 Given 1Result Comment: [facility]# [id number] Medications benztropine 1 mg oral tablet 1 mg, 1, tablet, By Mouth, 2 times a day, # 60 tablet, Refills 3, Tot. Refills 3, Maintenance, 11/21/18 9:28:36 EDT, Route to Pharmacy Electronically, [id number], [facility]/pharmacy#[id number] Start Date: 11/21/18 Stop Date: 03/21/19 Status: [...] 2 Refills, Maintenance, 03/08/20 14:59:00 EDT, Capsule, [facility], To replace 50 mg capsules, 170, cm, 02/22/20 20:33:00 EDT, Height, 80.9, kg, 02/29/20 19:49:00 ED... Start Date: 03/08/20 Status: OrderedFLUoxetine 20 mg oral capsule 40 mg, 2, capsule, By Mouth, Daily, 2 capsules to equal 40 mg daily., # 60 capsule, Refills 5, Tot. Refills 5, Maintenance, 03/08/20 10:37:00 EDT, Route to Pharmacy Electronically, [facility], 170, cm, 02/22/20 20:33:00 EDT, Height, [...] 4 Refills, Maintenance, 09/27/19 14:06:00 EDT, Capsule, [facility] #[id number], 169, cm, 07/03/19 16:03:00 EST, Height Start Date: 09/27/19 Status: Orderedloratadine 10 mg oral tablet 10 mg, 1, tablet, By Mouth, Daily, # 30 tablet, Refills 6, Tot. Refills 6, Maintenance, 03/27/20 10:07:00 EDT, Route to Pharmacy Electronically, [facility], 170, cm, 02/22/20 20:33:00 EDT, Height,80.9, [...] Refills, Soft Stop, 03/21/20 14:01:00 EDT, Liquid, [facility], 300... Start Date: 03/21/20 Status: OrderedMelatonin [...] 11:01:00 EST, 02/02/20 11:01:00 EDT, REC Powder, [facility], 17 Gm By Mouth Daily,x30 days,Instr:dissolve in w... Start Date: 02/02/20 Stop Date: 05/02/20 Status: OrderedMultivitamin Daily, 0 Refills, Maintenance, 06/21/18 14:04:37 EST Start Date: 06/21/18 Status: OrderedNicotine 7 mg/24 hour patch 1 patch, Topically, Daily, [employer]., # 28 patch, 1 Refills, Acute, 03/29/20 11:48:00 EDT, [facility], 28, APPLY ONE PATCH TOPICALLY DAILY [employer], 170, cm, 03/27/20 18:25:00 EDT, Height, 83.1, kg, 03/27/20 18:25:... Start Date: 03/29/20 Status: Orderedolanzapine 15 mg oral tablet 1 [...]
--- OUTSIDE RECORDS SUMMARY | 2022-06-26 21:15 | XMS_ITS | Continuity of Care Document ---
:1990 Author Organization [facility] Address [address] [place] [address]- Care Team Providers Name Role Phone Anthony IZQUIERDO, Jennie Bansal Primary Care Physician [id number] Date(s): 09/07/19 - 09/17/19 [facility] [address] [place] [address]- Attending Physician: Bel Galloway Admitting Physician: Bel Galloway Referring Physician: AdmtrBel Allergies, Adverse Reactions, Alerts Substance Reaction Severity Status Risperdal Active Immunizations Given and Recorded Vaccine Date Status Refusal Reason influenza virus vaccine, inactivated1 07/03/19 Given 1Result Comment: [facility]# [id number] Medications benztropine 1 mg oral tablet 1 mg, 1, tablet, By Mouth, 2 times a day, # 60 tablet, Refills 3, Tot. Refills 3, Maintenance, 11/21/18 9:28:36 EDT, Route to Pharmacy Electronically, [id number], [facility]/pharmacy#[id number] Start Date: 11/21/18 Stop Date: 03/21/19 [...] 11/21/18 9:26:51 EDT, Route to Pharmacy Electronically, [id number], [facility]/pharmacy #[id number] Start Date: 11/21/18 Status: Orderedloratadine 10 mg oral tablet 10 mg, 1, tablet, By Mouth, Daily, # 30 tablet, Refills 6, Tot. Refills 6, Maintenance, 08/30/19 10:07:00 EDT, Route to Pharmacy Electronically, [facility] #[id number], 169, cm, 07/03/19 16:03:00 EST, Height Start [...] 9:27:20 EDT, Tablet Start Date: 11/21/18 Status: OrderedOXcarbazepine 150 mg oral tablet 150 mg, 1, tablet, By Mouth, 2 times a day, # 60 tablet, Refills 0, Maintenance, 12/26/18 11:36:17 EDT Start Date: 12/26/18 Status: OrderedraNITIdine 150 mg oral tablet 1 tablet = 150 mg, By Mouth, 2 times a day, # 60 tablet, 6 Refills, Maintenance, 12/26/18 11:48:13 EDT, Tablet Start Date: 12/26/18 Stop Date: 07/24/19 Status: Ordered Problem List Condition Effective Dates Status Health Status Informant Allergic rhinitis(Confirmed) Active Chronic constipation(Confirmed) Active Developmental disability(Confirmed) Active Intermittent explosive disorder in Active adult(Confirmed) Chronic GERD(Confirmed) Active Annual physical exam(Confirmed) Active Social History Social History Type Response Smoking Status Former smoker, quit more padmini n 30 days ago; Tobacco user in household: No; Type: Cigarettes; Previous treatment: None; Interested in cessation: No entered on: 06/21/18 Sex
--- OUTSIDE RECORDS SUMMARY | 2022-06-26 21:15 | XMS_ITS | Continuity of Care Document ---
:1990 Author Organization [facility] Address [address] [place] [address]- Care Team Providers Name Role Phone Isma IZQUIERDO, Keturah Primary Care Physician Encounter [facility] Date(s): 01/30/21 - 02/06/21 [facility] [address] [place], [place] [address] Attending Physician: Beverly Lomas MD Referring Physician: Keturah Ashby NP Allergies, Adverse Reactions, Alerts Substance Reaction Severity Status Risperdal Active Immunizations Given and Recorded Vaccine Date Status Refusal Reason influenza virus vaccine, inactivated1 07/03/19 Given 1Result Comment: [facility]# [id number] Medications benztropine 1 mg oral tablet 1 mg, 1, tablet, By Mouth, 2 times a day, # 60 tablet, Refills 3, Tot. Refills 3, Maintenance, 11/21/18 9:28:36 EDT, Route to Pharmacy Electronically, [id number], [facility]/pharmacy#[id number] Start Date: 11/21/18 Stop Date: 03/21/19 Status: [...] 5 Refills, Maintenance, 10/30/20 11:18:00 EDT, Capsule, [facility], To replace 50 mg capsules, 168, cm, 10/30/20 11:05:00 EDT, Height, 83.3, kg, 10/24/20 17:15:00 ED... Start Date: 10/30/20 Status: OrderedDulcolax 10 mg rectal suppository 1 supp = 10 mg, Rectally, Daily, PRN for constipation, # 10 supp, 0 Refills, Maintenance, 09/13/20 13:08:00 EDT, Suppository, [facility], Partial fill upon patient request if the prescription is for a schedule II opioid drug., 170, cm, 09/13/20 1... Start Date: 09/13/20 Status: OrderedFLUoxetine 20 mg oral capsule 40 mg, 2, capsule, By Mouth, Daily, 2 capsules to equal 40 mg daily., # 60 capsule, Refills 5, Tot. Refills 5, Maintenance, 03/08/20 10:37:00 EDT, Route to Pharmacy Electronically, [facility], 170, cm, 02/22/20 20:33:00 EDT, Height, [...] 4 Refills, Maintenance, 09/19/20 13:00:00 EDT, Capsule, [facility]808, 170, cm, 09/13/20 15:29:00 EDT, Height, 88.3, [...] 10/23/20 10:07:00 EDT, Route to Pharmacy Electronically, [facility], 170, cm, 09/02/20 15:24:00 EDT, Height,86.6, [...] Refills, Soft Stop, 12/13/20 15:34:00 EDT, Liquid, [facility], 300... Start Date: 12/13/20 Status: OrderedMelatonin [...] Gm, 2 Refills, Maintenance, 10/30/20 11:19:00 EDT, [facility], 30, MIX & DISSOLVE 17GM DOSE [...] 12/11/20 15:40:00 EDT, Route to Pharmacy Electronically, [facility], Partial fill upon patient request if [...] oldest [Reference Range]: 1 Height 168 cm (01/30/21 11:48 AM) Oxygen Saturation [94-100 %] 97 % (01/30/21 11:48 AM) Pulse Rate [55-90 bpm] 77 bpm (01/30/21 11:48 AM) Blood Pressure [90-138/55-84 mm Hg] 97/71 mm Hg (01/30/21 11:48 AM) Respiratory Rate [16-30 br/min] 20 br/min (01/30/21 11:48 AM) Temperature [96.8-100.4 DegF] 98.9 DegF (01/30/21 11:48 AM) Mode of Delivery (Oxygen) Room air (01/30/21 11:48 AM) Blood pressure sites Arm, left (01/30/21 11:48 AM) Temperature Route Temporal (01/30/21 11:48 AM) Social History Social History Type Response Smoking Status Former smoker, quit more padmini n 30 days ago entered on: 03/11/20 Sex
--- OUTSIDE RECORDS SUMMARY | 2022-06-26 21:15 | XMS_ITS | Continuity of Care Document ---
:1990 Author Organization [facility] Address [address] [place] [address]- Care Team Providers Name Role Phone Jennie rCuz NP Primary Care Physician Encounter [facility] Date(s): 06/29/19 - 10/27/19 [facility] [address] [place] [address] [facility] Attending Physician: La Bo MD Admitting Physician: La Bo MD Referring Physician: Jennie Cruz NP Allergies, Adverse Reactions, Alerts Substance Reaction Severity Status Risperdal Active Immunizations Given and Recorded Vaccine Date Status Refusal Reason influenza virus vaccine, inactivated1 07/03/19 Given 1Result Comment: [facility]# [id number] Medications benztropine 1 mg oral tablet 1 mg, 1, tablet, By Mouth, 2 times a day, # 60 tablet, Refills 3, Tot. Refills 3, Maintenance, 11/21/18 9:28:36 EDT, Route to Pharmacy Electronically, [id number], [facility]/pharmacy#[id number] Start Date: 11/21/18 Stop Date: 03/21/19 [...] 11/21/18 9:26:51 EDT, Route to Pharmacy Electronically, [id number], [facility]/pharmacy #[id number] Start Date: 11/21/18 Status: OrderedLinzess 145 mcg oral capsule 1 capsule = 145 mcg, By Mouth, Daily, # 90 capsule, 4 Refills, Maintenance, 09/27/19 14:06:00 EDT, Capsule, [id number], 169, cm, 07/03/19 16:03:00 EST, Height Start Date: 09/27/19 Status: Orderedloratadine 10 mg oral tablet 10 mg, 1, tablet, By Mouth, Daily, # 30 tablet, Refills 6, Tot. Refills 6, Maintenance, 08/30/19 10:07:00 EDT, Route to Pharmacy Electronically, [facility][id number], 169, cm, 07/03/19 16:03:00 EST, Height Start [...]
--- OUTSIDE RECORDS SUMMARY | 2022-06-26 21:15 | XMS_ITS | Continuity of Care Document ---
:1990 Author Organization [facility] Address Unavailable , Care Team Providers Name Role Phone Keturah Ashby NP Primary Care Physician Encounter [facility] Date(s): 03/04/21 - 03/11/21 [facility] Encounter Diagnosis Supraumbilical hernia (Discharge Diagnosis) - 03/05/21 Attending Physician: Nahun Molina Referring Physician: Keturah Ashby NP Allergies, Adverse Reactions, Alerts Substance Reaction Severity Status Risperdal Active Immunizations Given and Recorded Vaccine Date Status Refusal Reason influenza virus vaccine, inactivated1 07/03/19 Given 1Result Comment: [facility]# [id number] Medications benztropine 1 mg oral tablet 1 mg, 1, tablet, By Mouth, 2 times a day, # 60 tablet, Refills 3, Tot. Refills 3, Maintenance, 11/21/18 9:28:36 EDT, Route to Pharmacy Electronically, [id number], [facility]/pharmacy#[id number] Start Date: 11/21/18 Stop Date: 03/21/19 [...] 03/08/20 10:37:00 EDT, Route to Pharmacy Electronically, [facility], 170, cm, 02/22/20 20:33:00 EDT, Height, [...] 4 Refills, Maintenance, 09/19/20 13:00:00 EDT, Capsule, [facility], 170, cm, 09/13/20 15:29:00 EDT, Height, 88.3, [...] 10/23/20 10:07:00 EDT, Route to Pharmacy Electronically, [facility], 170, cm, 09/02/20 15:24:00 EDT, Height,86.6, [...] Refills, Soft Stop, 12/13/20 15:34:00 EDT, Liquid, [facility], 300... Start Date: 12/13/20 Status: OrderedMelatonin [...] 15:39:00 EST, 12/11/20 15:39:00 EDT, REC Powder, [facility], Partial fill uponpatient request if the [...] Gm, 2 Refills, Maintenance, 10/30/20 11:19:00 EDT, [facility], 30, MIX & DISSOLVE 17GM DOSE [...] of right shoulder(Confirmed) 08/15/20 Active Lives in half-way(Confirmed) Active Obesity(Confirmed) Active Pain of right humerus(Confirmed) 08/15/20 Active Annual physical exam(Confirmed) Active Tobacco abuse(Confirmed) Active Umbilical hernia(Confirmed) Active Diagnosis Diagnosis Type Effective Dates Health Clinical Infor mant Status Service Supraumbilical Discharge 03/05/21 hernia Diagnosis Procedures Procedure Date Related Diagnosis Body Site Status 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 Completed Tympanostomy Completed Vital Signs Most recent to oldest [Reference Range]: 1 Height 168 cm (03/04/21 9:59 AM) Weight 87.2 kg (03/04/21 9:59 AM) Pulse Rate [55-90 bpm] 85 bpm (03/04/21 9:59 AM) Body Mass Index [18.5-24.99] 30.9 *>HHI* (03/04/21 9:59 AM) Blood Pressure [90-138/55-84 mm Hg] 109/75 mm Hg (03/04/21 9:59 AM) Temperature [96.8-100.4 DegF] 97.8 DegF (03/04/21 9:59 AM) Blood pressure sites Arm, left (03/04/21 9:59 AM) Temperature Route Temporal (03/04/21 9:59 AM) Weight Obtained Via Standing scale (03/04/21 9:59 AM) Social History Social History Type Response Smoking Status Former smoker, quit more padmini n 30 days ago entered on: 03/11/20 Sex
--- OUTSIDE RECORDS SUMMARY | 2022-06-26 21:15 | XMS_ITS | Continuity of Care Document ---
:1990 Author Organization [facility] Address [address] [place] [address]- Care Team Providers Name Role Phone Isma IZQUIERDO, Keturah Primary Care Physician Encounter [facility] NBR [id number] Date(s): 02/07/21 - 03/09/21 [facility] [address] [id number]- Allergies, Adverse Reactions, Alerts Substance Reaction Severity Status Risperdal Active Immunizations Given and Recorded Vaccine Date Status Refusal Reason influenza virus vaccine, inactivated1 07/03/19 Given 1Result Comment: [facility]# [id number] Medications benztropine 1 mg oral tablet 1 mg, 1, tablet, By Mouth, 2 times a day, # 60 tablet, Refills 3, Tot. Refills 3, Maintenance, 11/21/18 9:28:36 EDT, Route to Pharmacy Electronically, [id number], [facility]/pharmacy#[id number] Start Date: 11/21/18 Stop [...] 03/08/20 10:37:00 EDT, Route to Pharmacy Electronically, [facility], 170, cm, 02/22/20 20:33:00 EDT, Height, [...] 4 Refills, Maintenance, 09/19/20 13:00:00 EDT, Capsule, [facility]-745[facility], 170, cm, 09/13/20 15:29:00 EDT, Height, 88.3, [...] 10/23/20 10:07:00 EDT, Route to Pharmacy Electronically, [facility], 170, cm, 09/02/20 15:24:00 EDT, Height,86.6, [...] Refills, Soft Stop, 12/13/20 15:34:00 EDT, Liquid, [facility], 300... Start Date: 12/13/20 Status: OrderedMelatonin [...] of right shoulder(Confirmed) 08/15/20 Active Lives in [facility](Confirmed) Active Obesity(Confirmed) Active Pain of right humerus(Confirmed) 08/15/20 Active Annual physical exam(Confirmed) Active Tobacco abuse(Confirmed) Active Umbilical hernia(Confirmed) Active Social History Social History Type Response Smoking Status Former smoker, quit more padmini n 30 days ago entered on: 03/11/20 Sex
--- OUTSIDE RECORDS SUMMARY | 2022-06-26 21:15 | XMS_ITS | Continuity of Care Document ---
:1990 Author Organization [facility] Address [address] [place] [address]- Care Team Providers Name Role Phone Keturah Ashby NP Primary Care Physician Encounter [facility] Date(s): 10/29/20 - 11/28/[address] [address]- Attending Physician: AdmBel schuster Admitting Physician: Admtr, Ar8 Referring Physician: Admtr, Ar8 Allergies, Adverse Reactions, Alerts Substance Reaction Severity Status Risperdal Active Immunizations Given and Recorded Vaccine Date Status Refusal Reason influenza virus vaccine, inactivated1 07/03/19 Given 1Result Comment: [facility]# [id number] Medications benztropine 1 mg oral tablet 1 mg, 1, tablet, By Mouth, 2 times a day, # 60 tablet, Refills 3, Tot. Refills 3, Maintenance, 11/21/18 9:28:36 EDT, Route to Pharmacy Electronically, [id number], [facility]/pharmacy#[id number] Start Date: 11/21/18 Stop [...] 5 Refills, Maintenance, 10/30/20 11:18:00 EDT, Capsule, [facility], To replace 50 mg capsules, 168, cm, 10/30/20 11:05:00 EDT, Height, 83.3, kg, 10/24/20 17:15:00 ED... Start Date: 10/30/20 Status: OrderedDulcolax 10 mg rectal suppository 1 supp = 10 mg, Rectally, Daily, PRN for constipation, # 10 supp, 0 Refills, Maintenance, 09/13/20 13:08:00 EDT, Suppository, [facility], Partial fill upon patient request if the prescription is for a schedule II opioid drug., 170, cm, 09/13/20 1... Start Date: 09/13/20 Status: OrderedFLUoxetine 20 mg oral capsule 40 mg, 2, capsule, By Mouth, Daily, 2 capsules to equal 40 mg daily., # 60 capsule, Refills 5, Tot. Refills 5, Maintenance, 03/08/20 10:37:00 EDT, Route to Pharmacy Electronically, [facility], 170, cm, 02/22/20 20:33:00 EDT, Height, [...] 4 Refills, Maintenance, 09/19/20 13:00:00 EDT, Capsule, [facility], 170, cm, 09/13/20 15:29:00 EDT, Height, 88.3, [...] 10/23/20 10:07:00 EDT, Route to Pharmacy Electronically, [facility], 170, cm, 09/02/20 15:24:00 EDT, Height,86.6, [...] Refills, Soft Stop, 03/21/20 14:01:00 EDT, Liquid, [facility], 300... Start Date: 03/21/20 Status: Orderedmagnesium citrate 8.85% oral liquid 150 mL = 8.725 Gm, By Mouth, Once, # 300 mL, 0 Refills, Soft Stop, 09/20/20 15:27:00 EDT, Liquid, [facility] #[id number], Partial fill upon patient request if the [...] 3 Refills, Maintenance, 10/30/20 11:19:00 EDT, Capsule, [facility], Partial fill upon patient request if [...]
--- OUTSIDE RECORDS SUMMARY | 2022-06-26 21:15 | XMS_ITS | Continuity of Care Document ---
:1990 Author Organization [facility] Address [address] [place] [address]- Care Team Providers Name Role Phone Isma IZQUIERDO, Keturah Primary Care Physician Encounter [facility] Date(s): 02/18/22 - 03/20/22 [facility] [address] [phone]- [place] Allergies, Adverse Reactions, Alerts Substance Reaction Severity Status Risperdal unkown Active Immunizations Given and Recorded Vaccine Date Status Refusal Reason SARS-CoV-2 (COVID-19) mRNA-1273 vaccine 06/09/21 Recorded SARS-CoV-2 (COVID-19) mRNA-1273 vaccine 04/17/21 Recorded influenza virus vaccine, inactivated 04/17/21 Recorded influenza virus vaccine, inactivated1 07/03/19 Given 1Result Comment: [facility]# [id number] Medications Ativan 2 mg oral tablet 1 [...] 0 Refills, Maintenance, 02/03/22 15:20:00 EDT, Suppository, [facility]-85539, Partial fill upon patient request if the [...] 3 Refills, Maintenance, 08/27/21 16:03:00 EDT, Film, [facility], Partial fill upon patient requestif the prescription is for a schedule II opioid d... Start Date: 08/27/21 Status: OrderedLinzess 145 mcg oral capsule 1 capsule, By Mouth, Daily in AM, # 30 capsule, 0 Refills, [place] [id number], 168, cm, 228:41:00 EDT, Height, 85.8, kg, 04/07/21 14:21:00 EDT, Dry Weight Start Date: 01/08/22 Status: Orderedloratadine 10 mg oral tablet See Instructions, TAKE 1 TABLET BY MOUTH DAILY IN THE MORNING, # 30 tablet, Refills 5, Tot. Refills 5, 12/24/21 14:55:00 EDT, Instructions Replace Required Details, Route to Pharmacy Electronically, [facility]-67[facility], 168, cm, ... Start Date: 12/24/21 Status: Orderedmagnesium citrate 8.85% oral liquid 17 grams, By Mouth, Once, Use PRN after four days of no bowel movement. Repeat after 24 hours if no BM. Call PCP after 24 hours if no BM after second dose, # 68 Gm, 5 Refills, Soft Stop, 08/07/21 13:25:00 EST, Liquid, [facility], 17 grams By Mo... Start Date: 08/07/21 Status: Orderedmagnesium citrate 8.85% oral liquid 17 grams, By Mouth, Once, Use PRN after four days of no bowel movement. Repeat after 24 hours if no BM. Call PCP after 24 hours if no BM after second dose, # 68 Gm, 1 Refills, Soft Stop, 02/04/22 15:33:00 EDT, Liquid, [facility]-00... Start Date: 02/04/22 Status: OrderedMelatonin 5 mg [...] Refills, Maintenance, 12/05/21 16:01:00 EDT, EC Capsule, [facility]-27473, Partial fill upon patient request if the prescription isfor a schedule II opioid drug., 168, cm, 11/20/21... Start Date: 12/05/21 Status: OrderedPeri-Colace 50 mg-8.6 mg oral tablet 2 tablet, By Mouth, Daily at bedtime, for 30 days, # 60 tablet, 5 Refills, Acute 05/19/22 10:38:00 EST, 11/20/21 10:38:00 EDT, Tablet, [facility]-46652, Partial fill upon patient request if the prescription is for a schedule II opioi... Start Date: 11/20/21 Stop Date: 05/19/22 Status: Orderedpolyethylene glycol 3350 oral powder for reconstitution See Instructions, MIX & DISSOLVE 17GM DOSE IN 4 TO 8 OUNCES OF WATER, DRINK THE SOLUTION ONCE A DAY NEEDED FOR CONSTIPATION, # 510 Gm, 2 Refills, Maintenance, 02/04/22 15:24:00 EDT, [facility]-68475, 30, MIX & DISSOLVE 17GM DOSE I... Start Date: 02/04/22 Status: OrderedSEROquel 200 mg oral tablet 600 mg, 3, tablet, By Mouth, Daily at bedtime, Refills 0, Maintenance, 07/21/21 12:44:00 EST, Partial fill upon patient request if the prescription is for a schedule II opioid drug. Start Date: 07/21/21 Status: Ordered Problem List Condition Confirmation Course Effective Dates Status Health I nformant Status Allergic rhinitis Confirmed Active Bipolar disorder Confirmed Active Chronic constipation Confirmed Active Developmental Confirmed Active disability Intermittent Confirmed Active explosive disorder in adult Chronic GERD Confirmed Active Injury of right Confirmed 08/15/20 Active shoulder Lives in [facility] Confirmed Active Obesity Confirmed Active Pain of [...] Active Unknown Patient Care team information PersonnelName: Keturah Ashby NP Address: Address: [address] [place] [id number]
--- OUTSIDE RECORDS SUMMARY | 2022-06-26 21:15 | XMS_ITS | Continuity of Care Document ---
:1990 Author Organization [facility] Address Unavailable , Care Team Providers Name Role Phone Isma IZQUIERDO, Keturah Primary Care Physician Encounter [facility] Date(s): 03/21/21 - 05/22/21 [facility] Attending Physician: Nahun Molina Referring Physician: Keturah Ashby NP Allergies, Adverse Reactions, Alerts Substance Reaction Severity Status Risperdal unkown Active Immunizations Given and Recorded Vaccine Date Status Refusal Reason influenza virus vaccine, inactivated1 07/03/19 Given 1Result Comment: [facility]# [id number] Medications calcium carbonate 500 mg (200 mg [...] 03/08/20 10:37:00 EDT, Route to Pharmacy Electronically, [facility], 170, cm, 02/22/20 20:33:00 EDT, Height, [...] 4 Refills, Maintenance, 03/26/21 16:53:00 EDT, Capsule, [facility], 168, cm, 03/04/21 13:36:00 EDT, Height, 83.3, kg, 10/24/20 17:15:00 EDT, DryWeight Start Date: 03/26/21 Status: Orderedloratadine 10 mg oral tablet See Instructions, TAKE 1 TABLET BY MOUTH DAILY, # 30 tablet, Refills 5, Tot. Refills 5, Maintenance,03/14/21 11:21:00 EDT, Instructions Replace Required Details, Route to Pharmacy Electronically, [facility], 168, cm, 03/04/21 13:36:00 EDT, [facility]... Start Date: 03/14/21 Status: Orderedmagnesium citrate 8.85% oral liquid 300 mL = 17.45 Gm, By Mouth, Once, Use PRN after four days of no bowel movement. Repeat after 24 horus if no BM. Call PCP after 24 hours if no BM after second dose, # 300 mL, 5 Refills, Soft Stop, 12/13/20 15:34:00 EDT, Liquid, [facility], 300... Start Date: 12/13/20 Status: OrderedMelatonin [...] 15:39:00 EST, 12/11/20 15:39:00 EDT, REC Powder, [facility], Partial fill uponpatient request if the [...] of right shoulder(Confirmed) 08/15/20 Active Lives in care home(Confirmed) Active Obesity(Confirmed) Active Pain of right humerus(Confirmed) 08/15/20 Active Annual physical exam(Confirmed) Active Tobacco abuse(Confirmed) Active Umbilical hernia(Confirmed) Active Social History Social History Type Response Smoking Status Former smoker, quit more padmini n 30 days ago entered on: 03/11/20 Sex Medical Equipment Implanted Date:04/07/21 Target Site:[facility] Description Quantity MRI Company Model MESH VENTRALIGHT ECHO CIR 4.5 - BARD ([id number]) 1 Bard Unknown JENNIFER: No Information Assigning Authority: FDA
--- OUTSIDE RECORDS SUMMARY | 2022-06-26 21:15 | XMS_ITS | Continuity of Care Document ---
:1990 Author Organization [facility] Address [address] [phone]- Care Team Providers Name Role Phone Keturah Ashby NP Primary Care Physician Encounter [facility] NBR [id number] Date(s): 08/27/21 - 09/03/21 [facility] [address] [phone]- Encounter Diagnosis Bipolar disorder (Discharge Diagnosis) - 08/27/21 Intermittent explosive disorder in adult (Discharge Diagnosis) - 08/27/21 Right low back pain (Discharge Diagnosis) - 08/27/21 Chronic constipation (Discharge Diagnosis) - 08/27/21 Attending Physician: Keturah Ashby NP Allergies, Adverse Reactions, Alerts Substance Reaction Severity Status Risperdal unkown Active Immunizations Given and Recorded Vaccine Date Status Refusal Reason influenza virus vaccine, inactivated1 07/03/19 Given 1Result Comment: [facility]# [id number] Medications calcium carbonate 500 mg (200 mg [...] 0 Refills, Maintenance, 09/13/20 13:08:00 EDT, Suppository, [facility], Partial fill upon patient request if the prescription is for a schedule II opioid drug., 170, cm, 09/13/20 1... Start Date: 09/13/20 Status: OrderedFLUoxetine 20 mg oral capsule 40 mg, 2, capsule, By Mouth, Daily, 2 capsules to equal 40 mg daily., # 60 capsule, Refills 5, Tot. Refills 5, Maintenance, 03/08/20 10:37:00 EDT, Route to Pharmacy Electronically, [facility], 170, cm, 02/22/20 20:33:00 EDT, Height, 80.9, kg, ... Start Date: 03/08/20 Status: Orderedibuprofen 600 mg oral tablet 600 mg, By Mouth, Every 6 hours, PRN, for 30 days, # 120 tablet, Refills 0, Tot. Refills 0, Acute 09/05/21 16:33:00 EDT, Pain , Moderate, 08/06/21 16:33:00 EST, Route to Pharmacy Electronically, [facility], Partial fill upon patient request if th... Start Date: 08/06/21 Stop Date: 09/05/21 Status: Orderedlidocaine 5% topical film 1 patch, Topically, Daily, PRN Pain , Mild, remove after 12 hours, # 30 patch, 3 Refills, Maintenance, 08/27/21 16:03:00 EDT, Film, [facility] [place]- [address], Partial fill upon patient requestif the prescription is for a schedule II opioid d... Start Date: 08/27/21 Status: OrderedLinzess 145 mcg oral capsule 1 capsule = 145 mcg, By Mouth, Daily, # 90 capsule, 4 Refills, Maintenance, 03/26/21 16:53:00 EDT, Capsule, [facility], 168, cm, 03/04/21 13:36:00 EDT, Height, 83.3, kg, 10/24/20 17:15:00 EDT, DryWeight Start Date: 03/26/21 Status: Orderedloratadine 10 mg oral tablet See Instructions, TAKE 1 TABLET BY MOUTH DAILY IN THE MORNING, # 30 tablet, Refills 5, Instructions Replace Required Details, Route to Pharmacy Electronically, [facility], 168, cm, 07/21/21 12:32:00 EST, Height, [...] Refills, Soft Stop, 08/07/21 13:25:00 EST, Liquid, [facility], 17 grams By Mo... Start Date: [...] Diagnosis Type Effective Dates Health Clinical Infor [facility] Status Service Bipolar disorder Discharge 08/27/21 Diagnosis Intermittent Discharge 08/27/21 explosive disorder Diagnosis in adult Right low back pain Discharge 08/27/21 Diagnosis Chronic Discharge 08/27/21 constipation Diagnosis Vital Signs Most recent to oldest [Reference Range]: 1 Height 168 cm (08/27/21 11:03 AM) Weight 82.0 kg (08/27/21 11:03 AM) Oxygen Saturation [94-100 %] 98 % (08/27/21 11:03 AM) Pulse Rate [55-90 bpm] 82 bpm (08/27/21 11:03 AM) Body Mass Index [18.5-24.99] 29.05 *H* (08/27/21 11:03 AM) Blood Pressure [90-138/55-84 mm Hg] 118/70 mm Hg (08/27/21 11:03 AM) Respiratory Rate [16-30 br/min] 17 br/min (08/27/21 11:03 AM) Temperature [96.8-100.4 DegF] 98.5 DegF (08/27/21 11:03 AM) Liters per Minute 0 L/min (08/27/21 11:03 AM) Mode of Delivery (Oxygen) Room air (08/27/21 11:03 AM) Blood pressure sites Arm, left (08/27/21 11:03 AM) Temperature Route Temporal (08/27/21 11:03 AM) Weight Obtained Via Standing scale (08/27/21 11:03 AM) Social History Social History Type Response Smoking Status Former smoker, quit more padmini n 30 days ago entered on: 03/11/20 Sex Medical Equipment Implanted Date:04/07/21 Target Site:[employer] Description Quantity MRI Company Model MESH VENTRALIGHT ECHO CIR 4.5 - BARD ([id number]) 1 Bard Unknown JENNIFER: No Information Assigning Authority: FDA
--- OUTSIDE RECORDS SUMMARY | 2022-06-26 21:15 | XMS_ITS | Continuity of Care Document ---
:1990 Author Organization [facility] Address [address] [place] [address]- Care Team Providers Name Role Phone Keturah Ashby NP Primary Care Physician Encounter [facility] Date(s): 09/04/21 - 09/11/21 [id number] [address] [place] [address]- Encounter Diagnosis Pain of left great toe (Discharge Diagnosis) - 09/04/21 Right hand pain (Discharge Diagnosis) - 09/04/21 Intermittent explosive disorder in adult (Discharge Diagnosis) - 09/04/21 Attending Physician: Keturah Ashby NP Allergies, Adverse Reactions, Alerts Substance Reaction Severity Status Risperdal unkown Active Immunizations Given and Recorded Vaccine Date Status Refusal Reason influenza virus vaccine, inactivated1 07/03/19 Given 1Result Comment: [facility]# [id number] Medications calcium carbonate 500 mg (200 mg [...] 0 Refills, Maintenance, 09/13/20 13:08:00 EDT, Suppository, [facility], Partial fill upon patient request if the prescription is for a schedule II opioid drug., 170, cm, 09/13/20 1... Start Date: 09/13/20 Status: OrderedFLUoxetine 20 mg oral capsule 40 mg, 2, capsule, By Mouth, Daily, 2 capsules to equal 40 mg daily., # 60 capsule, Refills 5, Tot. Refills 5, Maintenance, 03/08/20 10:37:00 EDT, Route to Pharmacy Electronically, [facility], 170, cm, 02/22/20 20:33:00 EDT, Height, 80.9, kg, ... Start Date: 03/08/20 Status: Orderedlidocaine 5% topical film 1 patch, Topically, Daily, PRN Pain , Mild, remove after 12 hours, # 30 patch, 3 Refills, Maintenance, 08/27/21 16:03:00 EDT, Film, [facility] [place]- [id number], Partial fill upon patient requestif the prescription is for a schedule II opioid d... Start Date: 08/27/21 Status: OrderedLinzess 145 mcg oral capsule 1 capsule = 145 mcg, By Mouth, Daily, # 90 capsule, 4 Refills, Maintenance, 03/26/21 16:53:00 EDT, Capsule, [facility], 168, cm, 03/04/21 13:36:00 EDT, Height, 83.3, kg, 10/24/20 17:15:00 EDT, DryWeight Start Date: 03/26/21 Status: Orderedloratadine 10 mg oral tablet See Instructions, TAKE 1 TABLET BY MOUTH DAILY IN THE MORNING, # 30 tablet, Refills 5, Instructions Replace Required Details, Route to Pharmacy Electronically, [facility], 168, cm, 07/21/21 12:32:00 EST, Height, [...] Refills, Soft Stop, 08/07/21 13:25:00 EST, Liquid, [facility], 17 grams By Mo... Start Date: [...] Gm, 2 Refills, Maintenance, 10/30/20 11:19:00 EDT, [facility], 30, MIX & DISSOLVE 17GM DOSE IN 4 TO 8 OUNCES OF... Start Date: 10/30/20 Status: OrderedSEROquel 200 mg oral tablet 600 mg, 3, tablet, By Mouth, Daily at bedtime, Refills 0, Maintenance, 07/21/21 12:44:00 EST, Partial fill upon patient request if the prescription is for a schedule II opioid drug. Start Date: 07/21/21 Status: OrderedTylenol 325 mg oral tablet 975 mg, 3, tablet, By Mouth, 3 times a day, PRN, for 30 days, # 270 tablet, Refills 0, Tot. Refills 0, Acute 10/04/21 16:55:00 EDT, Pain , Moderate, 09/04/21 16:55:00 EDT, Route to Pharmacy Electronically, [facility] [place]-[id number], Partial f... Start Date: 09/04/21 Stop Date: 10/04/21 Status: Ordered Problem List Condition Effective Dates [...] Dates Health Clinical Infor mant Status Service Pain of left great Discharge 09/04/21 toe Diagnosis Right hand pain Discharge 09/04/21 Diagnosis Intermittent Discharge 09/04/21 explosive disorder Diagnosis in adult Vital Signs Most recent to oldest [Reference Range]: 1 Height 168 cm (09/04/21 3:02 PM) Weight 81.6 kg (09/04/21 3:02 PM) Oxygen Saturation [94-100 %] 98 % (09/04/21 3:02 PM) Pulse Rate [55-90 bpm] 88 bpm (09/04/21 3:02 PM) Body Mass Index [18.5-24.99] 28.91 *H* (09/04/21 3:02 PM) Blood Pressure [90-138/55-84 mm Hg] 108/72 mm Hg (09/04/21 3:02 PM) Respiratory Rate [16-30 br/min] 17 br/min (09/04/21 3:02 PM) Temperature [96.8-100.4 DegF] 98.7 DegF (09/04/21 3:02 PM) Liters per Minute 0 L/min (09/04/21 3:02 PM) Mode of Delivery (Oxygen) Room air (09/04/21 3:02 PM) Blood pressure sites Arm, left (09/04/21 3:02 PM) Temperature Route Temporal (09/04/21 3:02 PM) Weight Obtained Via Standing scale (09/04/21 3:02 PM) Social History Social History Type Response Smoking Status Former smoker, quit more padmini n 30 days ago entered on: 03/11/20 Sex Medical Equipment Implanted Date:04/07/21 Target Site:[employer] Description Quantity MRI Company Model MESH VENTRALIGHT ECHO CIR 4.5 - BARD ([id number]) 1 Bard Unknown JENNIFER: No Information Assigning Authority: FDA
--- OUTSIDE RECORDS SUMMARY | 2022-06-26 21:15 | XMS_ITS | Continuity of Care Document ---
:1990 Author Organization [facility] Address [address] [place] [address]- Care Team Providers Name Role Phone Isma IZQUIERDO, Keturah Primary Care Physician [facility]counter [facility] Date(s): 08/26/21 - 09/25/21 [facility] [address] [place] [phone] [place] Allergies, Adverse Reactions, Alerts Substance Reaction Severity Status Risperdal unkown Active Immunizations Given and Recorded Vaccine Date Status Refusal Reason influenza virus vaccine, inactivated1 07/03/19 Given 1Result Comment: [facility]# [id number] Medications calcium carbonate 500 mg (200 mg [...] 0 Refills, Maintenance, 09/13/20 13:08:00 EDT, Suppository, [facility], Partial fill upon patient request if the prescription is for a schedule II opioid drug., 170, cm, 09/13/20 1... Start Date: 09/13/20 Status: OrderedFLUoxetine 20 mg oral capsule 40 mg, 2, capsule, By Mouth, Daily, 2 capsules to equal 40 mg daily., # 60 capsule, Refills 5, Tot. Refills 5, Maintenance, 03/08/20 10:37:00 EDT, Route to Pharmacy Electronically, [facility], 170, cm, 02/22/20 20:33:00 EDT, Height, 80.9, kg, ... Start Date: 03/08/20 Status: Orderedlidocaine 5% topical film 1 patch, Topically, Daily, PRN Pain , Mild, remove after 12 hours, # 30 patch, 3 Refills, Maintenance, 08/27/21 16:03:00 EDT, Film, [facility], Partial fill upon patient requestif the prescription is for a schedule II opioid d... Start Date: 08/27/21 Status: OrderedLinzess 145 mcg oral capsule 1 capsule = 145 mcg, By Mouth, Daily, # 90 capsule, 4 Refills, Maintenance, 03/26/21 16:53:00 EDT, Capsule, [facility], 168, cm, 03/04/21 13:36:00 EDT, Height, 83.3, kg, 10/24/20 17:15:00 EDT, DryWeight Start Date: 03/26/21 Status: Orderedloratadine 10 mg oral tablet See Instructions, TAKE 1 TABLET BY MOUTH DAILY IN THE MORNING, # 30 tablet, Refills 5, Instructions Replace Required Details, Route to Pharmacy Electronically, [facility], 168, cm, 07/21/21 12:32:00 EST, Height, [...] 09/04/21 16:55:00 EDT, Route to Pharmacy Electronically, [facility], Partial f... Start Date: 09/04/21 Stop Date: 10/04/21 Status: Ordered Problem List Condition Effective Dates Status Health Status Informant Allergic rhinitis(Confirmed) Active Bipolar disorder(Confirmed) Active Chronic constipation(Confirmed) Active Developmental disability(Confirmed) Active Intermittent explosive disorder in Active adult(Confirmed) Chronic GERD(Confirmed) Active Injury of right shoulder(Confirmed) 08/15/20 Active Lives in fdc(Confirmed) Active Obesity(Confirmed) Active Pain of right humerus(Confirmed) 08/15/20 Active Annual physical exam(Confirmed) Active Tobacco abuse(Confirmed) Active Umbilical hernia(Confirmed) Active Social History Social History Type Response Smoking Status Former smoker, quit more padmini n 30 days ago entered on: 03/11/20 Sex Medical Equipment Implanted Date:04/07/21 Target Site:[employer] Description Quantity MRI Company Model MESH VENTRALIGHT ECHO CIR 4.5 - BARD ([id number]) 1 Bard Unknown JENNIFER: No Information Assigning Authority: FDA
--- OUTSIDE RECORDS SUMMARY | 2022-06-26 21:15 | XMS_ITS | Continuity of Care Document ---
:1990 Author Organization [facility] Address [address] [place] [address]- Care Team Providers Name Role Phone Isma IZQUIERDO, Keturah Primary Care Physician Encounter [facility] Date(s): 04/11/22 - 04/11/[address] [address]- Encounter Diagnosis Combative behavior (Final) - 04/11/22 Discharge Disposition: A-D/C Home Attending Physician: Eriberto Galicia MD Admitting Physician: Eriberto Galicia MD Referring Physician: Not on Staff, Referring MD Allergies, Adverse Reactions, Alerts Substance Reaction Severity Status Risperdal unkown Active Immunizations Given and Recorded Vaccine Date Status Refusal Reason SARS-CoV-2 (COVID-19) mRNA-1273 vaccine 06/09/21 Recorded SARS-CoV-2 (COVID-19) mRNA-1273 vaccine 04/17/21 Recorded influenza virus vaccine, inactivated 04/17/21 Recorded influenza virus vaccine, inactivated1 07/03/19 Given 1Result Comment: [facility]# [id number] Medications benzonatate 100 mg oral capsule 1 [...] 0 Refills, Maintenance, 02/03/22 15:20:00 EDT, Suppository, [facility]-54052, Partial fill upon patient request if the [...] in AM, # 30 capsule, 0 Refills, [place] [id number], 168, cm, :41:00 EDT, Height, 85.8, kg, 04/07/21 14:21:00 EDT, Dry Weight Start Date: 01/08/22 Status: Orderedloratadine 10 mg oral tablet See Instructions, TAKE 1 TABLET BY MOUTH DAILY IN THE MORNING, # 30 tablet, Refills 5, Tot. Refills 5, 12/24/21 14:55:00 EDT, Instructions Replace Required Details, Route to Pharmacy Electronically, [facility]-37724, 168, cm, ... Start Date: 12/24/21 Status: [...] Refills, Maintenance, 12/05/21 16:01:00 EDT, EC Capsule, [facility]-79371, Partial fill upon patient request if the prescription isfor a schedule II opioid drug., 168, cm, 11/20/21... Start Date: 12/05/21 Status: OrderedPeri-Colace 50 mg-8.6 mg oral tablet 2 tablet, By Mouth, Daily at bedtime, for 30 days, # 60 tablet, 5 Refills, Acute 05/19/22 10:38:00 EST, 11/20/21 10:38:00 EDT, Tablet, [facility]-54193, Partial fill upon patient request if the prescription is for a schedule II opioi... Start Date: 11/20/21 Stop Date: 05/19/22 Status: Orderedpolyethylene glycol 3350 oral powder for reconstitution See Instructions, MIX & DISSOLVE 17GM DOSE IN 4 TO 8 OUNCES OF WATER, DRINK THE SOLUTION ONCE A DAY NEEDED FOR CONSTIPATION, # 510 Gm, 2 Refills, Maintenance, 02/04/22 15:24:00 EDT, [facility]-56830, 30, MIX & DISSOLVE 17GM DOSE I... [...] 0 Refills, Maintenance, 04/02/22 13:48:00 EDT, Gel, [facility]-65597, Partial fill upon patient request if the [...] shoulder Lives in senior care Confirmed Active Obesity Confirmed Active Pain of right Confirmed 08/15/20 Active humerus Annual physical exam Confirmed Active Tobacco abuse Confirmed Active Umbilical hernia Confirmed Active Vital Signs Most recent to oldest 1 2 3 [Reference Range]: Oxygen Saturation [94-100 %] 96 % 96 % 94 % (04/11/22 9:56 PM) (04/11/22 6:33 PM) (04/11/22 3:5 2 PM) Pulse Rate [55-90 bpm] 63 bpm 71 bpm 57 bpm (04/11/22 9:56 PM) (04/11/22 6:33 PM) (04/11/22 3:5 2 PM) Blood Pressure [90-138/55-84 112/61 mm Hg 130/73 mm Hg 117 /73 mm Hg mm Hg] (04/11/22 9:56 PM) (04/11/22 6:33 PM) (04/11/22 3:5 2 PM) Respiratory Rate [16-30 16 br/min 20 br/min 14 br/mi n br/min] (04/11/22 9:56 PM) (04/11/22 6:33 PM) *L* (04/11/22 3:52 PM ) Temperature [96.8-100.4 DegF] 98.1 DegF 97.7 DegF 99 .0 DegF (04/11/22 9:56 PM) (04/11/22 6:33 PM) (04/11/22 10: 41 AM) Mode of Delivery (Oxygen) Room air Room air Room a ir (04/11/22 9:56 PM) (04/11/22 6:33 PM) (04/11/22 3:5 2 PM) Blood pressure sites Arm, left Arm, left (04/11/22 9:56 PM) (04/11/22 6:33 PM) Temperature Route Oral Oral Oral (04/11/22 9:56 PM) (04/11/22 6:33 PM) (04/11/22 10: 41 AM) Social History Social History Type Response [...] information PersonnelName: Keturah Ashby NP Address: Address: [address] [place] [address]
--- OUTSIDE RECORDS SUMMARY | 2022-06-26 21:15 | XMS_ITS | Continuity of Care Document ---
:1990 Author Organization [facility] Address [address] [place] [address]- Care Team Providers Name Role Phone Diego Ibarra Primary Care Physician Encounter [facility] Date(s): 02/03/20 - 03/04/20 [facility] [address] [place] [address]- [facility] Allergies, Adverse Reactions, Alerts Substance Reaction Severity Status Risperdal Active Immunizations Given and Recorded Vaccine Date Status Refusal Reason influenza virus vaccine, inactivated1 07/03/19 Given 1Result Comment: [facility]# [id number] Medications benztropine 1 mg oral tablet 1 mg, 1, tablet, By Mouth, 2 times a day, # 60 tablet, Refills 3, Tot. Refills 3, Maintenance, 11/21/18 9:28:36 EDT, Route to Pharmacy Electronically, [id number], [facility]/pharmacy#[id number] Start Date: 11/21/18 Stop Date: 03/21/19 [...] 11/21/18 9:26:51 EDT, Route to Pharmacy Electronically, [id number], [facility]/pharmacy #[id number] Start Date: 11/21/18 Status: OrderedhydrOXYzine hydrochloride 50 mg oral tablet 1 tablet = 50 mg, By Mouth, Every 4 hours, PRN for anxiety, # 40 tablet, 0 Refills, Maintenance, 02/02/20 11:36:00 EDT, Tablet Start Date: 02/02/20 Status: OrderedLinzess 145 mcg oral capsule 1 capsule = 145 mcg, By Mouth, Daily, # 90 capsule, 4 Refills, Maintenance, 09/27/19 14:06:00 EDT, Capsule, [facility] #[id number], 169, cm, 07/03/19 16:03:00 EST, Height Start Date: 09/27/19 Status: Orderedloratadine 10 mg oral tablet 10 mg, 1, tablet, By Mouth, Daily in AM, Refills 0, Maintenance, 02/02/20 11:37:00 EDT Start Date: 02/02/20 Status: Orderedloratadine 10 mg oral tablet 10 mg, 1, tablet, By Mouth, Daily, # 30 tablet, Refills 6, Tot. Refills 6, Maintenance, 08/30/19 10:07:00 EDT, Route to Pharmacy Electronically, [facility] #[id number], 169, cm, 07/03/19 16:03:00 EST, Height Start [...]
--- OUTSIDE RECORDS SUMMARY | 2022-06-26 21:15 | XMS_ITS | Continuity of Care Document ---
:1990 Author Organization [facility] Address [address] [place] [address]- Care Team Providers Name Role Phone Keturah Ashby NP Primary Care Physician [id number]): [facility] - 03/01/21 [facility] [address] [place], [place] [address] Attending Physician: Not on Staff, Attending MD Referring Physician: Keturah Ashby NP Allergies, Adverse Reactions, Alerts Substance Reaction Severity Status Risperdal Active Immunizations Given and Recorded Vaccine Date Status Refusal Reason influenza virus vaccine, inactivated1 07/03/19 Given 1Result Comment: [facility]# [id number] Medications benztropine 1 mg oral tablet 1 mg, 1, tablet, By Mouth, 2 times a day, # 60 tablet, Refills 3, Tot. Refills 3, Maintenance, 11/21/18 9:28:36 EDT, Route to Pharmacy Electronically, [id number], [facility]/pharmacy#[id number] Start Date: 11/21/18 Stop Date: 03/21/19 Status: [...] 5 Refills, Maintenance, 10/30/20 11:18:00 EDT, Capsule, [facility], To replace 50 mg capsules, 168, [...] 03/08/20 10:37:00 EDT, Route to Pharmacy Electronically, [facility], 170, cm, 02/22/20 20:33:00 EDT, Height, [...] 4 Refills, Maintenance, 09/19/20 13:00:00 EDT, Capsule, [facility]91531, 170, cm, 09/13/20 15:29:00 EDT, Height, 88.3, [...] 10/23/20 10:07:00 EDT, Route to Pharmacy Electronically, [facility], 170, cm, 09/02/20 15:24:00 EDT, Height,86.6, [...] Refills, Soft Stop, 12/13/20 15:34:00 EDT, Liquid, [facility], 300... Start Date: 12/13/20 Status: OrderedMelatonin [...] 15:39:00 EST, 12/11/20 15:39:00 EDT, REC Powder, [facility], Partial fill uponpatient request if the [...] Gm, 2 Refills, Maintenance, 10/30/20 11:19:00 EDT, [facility], 30, MIX & DISSOLVE 17GM DOSE [...] 12/11/20 15:40:00 EDT, Route to Pharmacy Electronically, [facility], Partial fill upon patient request if [...]
--- OUTSIDE RECORDS SUMMARY | 2022-06-26 21:15 | XMS_ITS | Continuity of Care Document ---
:1990 Author Organization [facility] Address [address] [place] [address]- Care Team Providers Name Role Phone Diego Ibarra Primary Care Physician Encounter [facility] [id number] Date(s): 10/10/20 - 11/09/20 [facility] [address] [place] [address]- Attending Physician: Bel Galloway Admitting Physician: AdmtrBel Referring Physician: AdmtrBel Allergies, Adverse Reactions, Alerts Substance Reaction Severity Status Risperdal Active Immunizations Given and Recorded Vaccine Date Status Refusal Reason influenza virus vaccine, inactivated1 07/03/19 Given 1Result Comment: [facility]# [id number] Medications benztropine 1 mg oral tablet 1 mg, 1, tablet, By Mouth, 2 times a day, # 60 tablet, Refills 3, Tot. Refills 3, Maintenance, 11/21/18 9:28:36 EDT, Route to Pharmacy Electronically, [id number], [facility]/pharmacy#[id number] Start Date: 11/21/18 Stop Date: [...] 5 Refills, Maintenance, 10/30/20 11:18:00 EDT, Capsule, [facility], To replace 50 mg capsules, 168, cm, 10/30/20 11:05:00 EDT, Height, 83.3, kg, 10/24/20 17:15:00 ED... Start Date: 10/30/20 Status: OrderedDulcolax 10 mg rectal suppository 1 supp = 10 mg, Rectally, Daily, PRN for constipation, # 10 supp, 0 Refills, Maintenance, 09/13/20 13:08:00 EDT, Suppository, [facility], Partial fill upon patient request if the prescription is for a schedule II opioid drug., 170, cm, 09/13/20 1... Start Date: 09/13/20 Status: OrderedFLUoxetine 20 mg oral capsule 40 mg, 2, capsule, By Mouth, Daily, 2 capsules to equal 40 mg daily., # 60 capsule, Refills 5, Tot. Refills 5, Maintenance, 03/08/20 10:37:00 EDT, Route to Pharmacy Electronically, [facility], 170, cm, 02/22/20 20:33:00 EDT, Height, [...] 4 Refills, Maintenance, 09/19/20 13:00:00 EDT, Capsule, [facility]-97407, 170, cm, 09/13/20 15:29:00 EDT, Height, 88.3, [...] 10/23/20 10:07:00 EDT, Route to Pharmacy Electronically, [facility], 170, cm, 09/02/20 15:24:00 EDT, Height,86.6, [...] Refills, Soft Stop, 03/21/20 14:01:00 EDT, Liquid, [facility], 300... Start Date: 03/21/20 Status: Orderedmagnesium citrate 8.85% oral liquid 150 mL = 8.725 Gm, By Mouth, Once, # 300 mL, 0 Refills, Soft Stop, 09/20/20 15:27:00 EDT, Liquid, [facility] #[id number], Partial fill upon patient request if the [...] 3 Refills, Maintenance, 10/30/20 11:19:00 EDT, Capsule, [facility], Partial fill upon patient request if [...]
--- OUTSIDE RECORDS SUMMARY | 2022-06-26 21:16 | XMS_ITS | Continuity of Care Document ---
:1990 Author Organization [facility] Address [address] [place] [address]- Care Team Providers Name Role Phone Isma IZQUIERDO, Keturah Primary Care Physician Encounter [facility] Date(s): 02/10/22 - 03/12/22 [facility] [address] [place] [phone]- [place] Allergies, Adverse Reactions, Alerts Substance Reaction Severity Status Risperdal unkown Active Immunizations Given and Recorded Vaccine Date Status Refusal Reason SARS-CoV-2 (COVID-19) mRNA-1273 vaccine 06/09/21 Recorded SARS-CoV-2 (COVID-19) mRNA-1273 vaccine 04/17/21 Recorded influenza virus vaccine, inactivated 04/17/21 Recorded influenza virus vaccine, inactivated1 07/03/19 Given 1Result Comment: [facility]# [id number] Medications Ativan 2 mg oral tablet 1 [...] 0 Refills, Maintenance, 02/03/22 15:20:00 EDT, Suppository, [facility]-68457, Partial fill upon patient request if the [...] 3 Refills, Maintenance, 08/27/21 16:03:00 EDT, Film, [facility]- 06247, Partial fill upon patient requestif the prescription is for a schedule II opioid d... Start Date: 08/27/21 Status: OrderedLinzess 145 mcg oral capsule 1 capsule, By Mouth, Daily in AM, # 30 capsule, 0 Refills, [place] [id number], 168, cm, :41:00 EDT, Height, 85.8, kg, 04/07/21 14:21:00 EDT, Dry Weight Start Date: 01/08/22 Status: Orderedloratadine 10 mg oral tablet See Instructions, TAKE 1 TABLET BY MOUTH DAILY IN THE MORNING, # 30 tablet, Refills 5, Tot. Refills 5, 12/24/21 14:55:00 EDT, Instructions Replace Required Details, Route to Pharmacy Electronically, [facility]-46730, 168, cm, ... Start Date: 12/24/21 Status: Orderedmagnesium citrate 8.85% oral liquid 17 grams, By Mouth, Once, Use PRN after four days of no bowel movement. Repeat after 24 hours if no BM. Call PCP after 24 hours if no BM after second dose, # 68 Gm, 5 Refills, Soft Stop, 08/07/21 13:25:00 EST, Liquid, [facility], 17 grams By Mo... Start Date: 08/07/21 Status: Orderedmagnesium citrate 8.85% oral liquid 17 grams, By Mouth, Once, Use PRN after four days of no bowel movement. Repeat after 24 hours if no BM. Call PCP after 24 hours if no BM after second dose, # 68 Gm, 1 Refills, Soft Stop, 02/04/22 15:33:00 EDT, Liquid, [facility]-00... Start Date: 02/04/22 Status: OrderedMelatonin [...] Refills, Maintenance, 12/05/21 16:01:00 EDT, EC Capsule, [facility]-33613, Partial fill upon patient request if the prescription isfor a schedule II opioid drug., 168, cm, 11/20/21... Start Date: 12/05/21 Status: OrderedPeri-Colace 50 mg-8.6 mg oral tablet 2 tablet, By Mouth, Daily at bedtime, for 30 days, # 60 tablet, 5 Refills, Acute 05/19/22 10:38:00 EST, 11/20/21 10:38:00 EDT, Tablet, [facility]-12627, Partial fill upon patient request if the prescription is for a schedule II opioi... Start Date: 11/20/21 Stop Date: 05/19/22 Status: Orderedpolyethylene glycol 3350 oral powder for reconstitution See Instructions, MIX & DISSOLVE 17GM DOSE IN 4 TO 8 OUNCES OF WATER, DRINK THE SOLUTION ONCE A DAY NEEDED FOR CONSTIPATION, # 510 Gm, 2 Refills, Maintenance, 02/04/22 15:24:00 EDT, [facility]-26047, 30, MIX & DISSOLVE 17GM DOSE I... [...] right Confirmed 08/15/20 Active shoulder Lives in fci Confirmed Active Obesity Confirmed Active Pain of [...] information PersonnelName: Keturah Ashby NP Address: Address: [address] [place] [id number]
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
--- OUTSIDE RECORDS SUMMARY | 2022-06-26 21:16 | XMS_ITS | Continuity of Care Document ---
:1990 Author Organization [facility] Address Unavailable , Care Team Providers Name Role Phone Isma IZQUIERDO, Keturah Primary Care Physician [facility] Date(s): 04/10/21 - 05/10/21 [facility] Allergies, Adverse Reactions, Alerts Substance Reaction Severity Status Risperdal unkown Active Immunizations Given and Recorded Vaccine Date Status Refusal Reason influenza virus vaccine, inactivated1 07/03/19 Given 1Result Comment: [facility]# [id number] Medications calcium carbonate 500 mg (200 mg [...] 03/08/20 10:37:00 EDT, Route to Pharmacy Electronically, [facility], 170, cm, 02/22/20 20:33:00 EDT, Height, [...] Replace Required Details, Route to Pharmacy Electronically, [facility], 168, cm, 03/04/21 13:36:00 EDT, Heigh... Start Date: 03/14/21 Status: Orderedmagnesium citrate 8.85% oral liquid 300 mL = 17.45 Gm, By Mouth, Once, Use PRN after four days of no bowel movement. Repeat after 24 horus if no BM. Call PCP after 24 hours if no BM after second dose, # 300 mL, 5 Refills, Soft Stop, 12/13/20 15:34:00 EDT, Liquid, [facility], 300... Start Date: 12/13/20 Status: OrderedMelatonin [...] 15:39:00 EST, 12/11/20 15:39:00 EDT, REC Powder, [facility], Partial fill uponpatient request if the [...] MESH VENTRALIGHT ECHO CIR 4.5 - BARD ([id number]) 1 Bard Unknown JENNIFER: No Information Assigning Authority: FDA
--- OUTSIDE RECORDS SUMMARY | 2022-06-26 21:16 | XMS_ITS | Continuity of Care Document ---
:1990 Author Organization [facility] [employer] [facility] Address [address] [place] [address]- Care Team Providers Name Role Phone Isma IZQUIERDO, Keturah Primary Care Physician Encounter [facility] [id number] Date(s): 06/20/21 - 07/20/21 [facility] [address] [phone]- Allergies, Adverse Reactions, Alerts Substance Reaction Severity Status Risperdal unkown Active Immunizations Given and Recorded Vaccine Date Status Refusal Reason influenza virus vaccine, inactivated1 07/03/19 Given 1Result Comment: [facility]# [id number] Medications calcium carbonate 500 mg (200 mg [...] Replace Required Details, Route to Pharmacy Electronically, [facility], 168, cm, 03/04/21 13:36:00 EDT, Heigh... Start Date: 03/14/21 Status: Orderedmagnesium citrate 8.85% oral liquid 300 mL = 17.45 Gm, By Mouth, Once, Use PRN after four days of no bowel movement. Repeat after 24 hours if no BM. Call PCP after 24 hours if no BM after second dose, # 300 mL, 5 Refills, Soft Stop, 06/26/21 10:49:00 EST, Liquid, [facility], 300... Start Date: 06/26/21 Status: OrderedMelatonin 5 mg oral tablet 1 tablet = 5 mg, By Mouth, Daily at bedtime, 0 Refills, Maintenance, 06/21/18 14:05:10 EST Start Date: 06/21/18 Status: Orderedolanzapine 10 mg oral tablet 10 [...] 8 OUNCES OF... Start Date: 10/30/20 Status: OrderedSeroquel 50 mg, By Mouth, 2 [...] shoulder(Confirmed) 08/15/20 Active Lives in penitentiary(Confirmed) Active Obese class I(Confirmed) Active Obesity(Confirmed) Active Pain of right humerus(Confirmed) 08/15/20 Active Annual physical exam(Confirmed) Active Tobacco abuse(Confirmed) Active Umbilical hernia(Confirmed) Active Social History Social History Type Response Smoking Status Former smoker, quit more padmini n 30 days ago entered on: 03/11/20 Sex Medical Equipment Implanted Date:04/07/21 Target Site:[facility] Description Quantity MRI Company Model MESH VENTRALIGHT ECHO CIR 4.5 - BARD ([id number]) 1 Bard Unknown JENNIFER: No Information Assigning Authority: FDA
--- OUTSIDE RECORDS SUMMARY | 2022-06-26 21:16 | XMS_ITS | Continuity of Care Document ---
:1990 Author Organization [facility] Address [address] [place] [address]- Care Team Providers Name Role Phone Isma IZQUIERDO, Keturah Primary Care Physician Encounter [facility] Date(s): 10/29/21 - 12/05/21 [facility] [address] [phone]- Attending Physician: Santiago Villa MD Allergies, Adverse Reactions, Alerts Substance Reaction Severity Status Risperdal unkown Active Immunizations Given and Recorded Vaccine Date Status Refusal Reason SARS-CoV-2 (COVID-19) mRNA-1273 vaccine 06/09/21 Recorded SARS-CoV-2 (COVID-19) mRNA-1273 vaccine 04/17/21 Recorded influenza virus vaccine, inactivated 04/17/21 Recorded influenza virus vaccine, inactivated1 07/03/19 Given 1Result Comment: [facility]# [id number] Medications calcium carbonate 500 mg (200 mg [...] 0 Refills, Maintenance, 09/13/20 13:08:00 EDT, Suppository, [facility], Partial fill upon patient request if the prescription is for a schedule II opioid drug., 170, cm, 09/13/20 1... Start Date: 09/13/20 Status: OrderedFLUoxetine 20 mg oral capsule 40 mg, 2, capsule, By Mouth, Daily, 2 capsules to equal 40 mg daily., # 60 capsule, Refills 5, Tot. Refills 5, Maintenance, 03/08/20 10:37:00 EDT, Route to Pharmacy Electronically, [facility], 170, cm, 02/22/20 20:33:00 EDT, Height, 80.9, kg, ... Start Date: 03/08/20 Status: Orderedlidocaine 5% topical film 1 patch, Topically, Daily, PRN Pain , Mild, remove after 12 hours, # 30 patch, 3 Refills, Maintenance, 08/27/21 16:03:00 EDT, Film, [facility]- [id number], Partial fill upon patient requestif the prescription is for a schedule II opioid d... Start Date: 08/27/21 Status: OrderedLinzess 145 mcg oral capsule 1 capsule = 145 mcg, By Mouth, Daily, # 90 capsule, 4 Refills, Maintenance, 03/26/21 16:53:00 EDT, Capsule, [facility], 168, cm, 03/04/21 13:36:00 EDT, Height, 83.3, kg, 10/24/20 17:15:00 EDT, DryWeight Start Date: 03/26/21 Status: Orderedloratadine 10 mg oral tablet See Instructions, TAKE 1 TABLET BY MOUTH DAILY IN THE MORNING, # 30 tablet, Refills 5, Instructions Replace Required Details, Route to Pharmacy Electronically, [facility], 168, cm, 07/21/21 12:32:00 EST, Height, [...] Refills, Soft Stop, 08/07/21 13:25:00 EST, Liquid, [facility], 17 grams By Mo... Start Date: [...] Refills, Maintenance, 12/05/21 16:01:00 EDT, EC Capsule, [facility]-97525, Partial fill upon patient request if the prescription isfor a schedule II opioid drug., 168, cm, 11/20/21... Start Date: 12/05/21 Status: OrderedPeri-Colace 50 mg-8.6 mg oral tablet 2 tablet, By Mouth, Daily at bedtime, for 30 days, # 60 tablet, 5 Refills, Acute 05/19/22 10:38:00 EST, 11/20/21 10:38:00 EDT, Tablet, [facility]-02394, Partial fill upon patient request if the [...] of right shoulder(Confirmed) 08/15/20 Active Lives in senior living(Confirmed) Active Obesity(Confirmed) Active Pain of right humerus(Confirmed) 08/15/20 Active Annual physical exam(Confirmed) Active Tobacco abuse(Confirmed) Active Umbilical hernia(Confirmed) Active Social History Social History Type Response Smoking Status Former smoker, quit more padmini n 30 days ago entered on: 03/11/20 Sex Medical Equipment Implanted Date:04/07/21 Target Site:[facility] Description Quantity MRI Company Model MESH VENTRALIGHT ECHO CIR 4.5 - BARD ([id number]) 1 Bard Unknown JENNIFER: No Information Assigning Authority: FDA
--- OUTSIDE RECORDS SUMMARY | 2022-06-26 21:16 | XMS_ITS | Continuity of Care Document ---
:1990 Author Organization [facility] Address [address] [place] [address]- Care Team Providers Name Role Phone Anthony IZQUIERDO, Jennie Bansal Primary Care Physician Encounter [facility] Date(s): 09/27/19 - 10/04/19 [facility] [address] [place] [address] [facility] Attending Physician: La Bo MD Referring Physician: Jennie Cruz NP Allergies, Adverse Reactions, Alerts Substance Reaction Severity Status Risperdal Active Immunizations Given and Recorded Vaccine Date Status Refusal Reason influenza virus vaccine, inactivated1 07/03/19 Given 1Result Comment: [facility]# [id number] Medications benztropine 1 mg oral tablet 1 mg, 1, tablet, By Mouth, 2 times a day, # 60 tablet, Refills 3, Tot. Refills 3, Maintenance, 11/21/18 9:28:36 EDT, Route to Pharmacy Electronically, [id number], [facility]/pharmacy#[id number] Start Date: 11/21/18 Stop Date: 03/21/19 Status: [...] 11/21/18 9:26:51 EDT, Route to Pharmacy Electronically, [id number], [facility]/pharmacy #[id number] Start Date: 11/21/18 Status: OrderedLinzess 145 mcg oral capsule 1 capsule = 145 mcg, By Mouth, Daily, # 90 capsule, 4 Refills, Maintenance, 09/27/19 14:06:00 EDT, Capsule, [facility] #[id number], 169, cm, 07/03/19 16:03:00 EST, Height Start Date: 09/27/19 Status: Orderedloratadine 10 mg oral tablet 10 mg, 1, tablet, By Mouth, Daily, # 30 tablet, Refills 6, Tot. Refills 6, Maintenance, 08/30/19 10:07:00 EDT, Route to Pharmacy Electronically, [facility] #[id number], 169, cm, 07/03/19 16:03:00 EST, Height Start [...]
--- OUTSIDE RECORDS SUMMARY | 2022-06-26 21:16 | XMS_ITS | Continuity of Care Document ---
:1990 Author Organization [facility] Address [address] [place] [address]- Care Team Providers Name Role Phone Isma IZQUIERDO, Keturah Primary Care Physician Encounter [facility] Date(s): 02/18/22 - 03/20/22 [facility] [address] [phone]- [place] Allergies, Adverse Reactions, Alerts Substance Reaction Severity Status Risperdal unkown Active Immunizations Given and Recorded Vaccine Date Status Refusal Reason SARS-CoV-2 (COVID-19) mRNA-1273 vaccine 06/09/21 Recorded SARS-CoV-2 (COVID-19) mRNA-1273 vaccine 04/17/21 Recorded influenza virus vaccine, inactivated 04/17/21 Recorded influenza virus vaccine, inactivated1 07/03/19 Given 1Result Comment: [facility]# [id number] Medications Ativan 2 mg oral tablet 1 [...] 0 Refills, Maintenance, 02/03/22 15:20:00 EDT, Suppository, [facility]-69729, Partial fill upon patient request if the [...] 3 Refills, Maintenance, 08/27/21 16:03:00 EDT, Film, [facility] [address], Partial fill upon patient requestif the prescription is for a schedule II opioid d... Start Date: 08/27/21 Status: OrderedLinzess 145 mcg oral capsule 1 capsule, By Mouth, Daily in AM, # 30 capsule, 0 Refills, [place] [id number], 168, cm, 228:41:00 EDT, Height, 85.8, kg, 04/07/21 14:21:00 EDT, Dry Weight Start Date: 01/08/22 Status: Orderedloratadine 10 mg oral tablet See Instructions, TAKE 1 TABLET BY MOUTH DAILY IN THE MORNING, # 30 tablet, Refills 5, Tot. Refills 5, 12/24/21 14:55:00 EDT, Instructions Replace Required Details, Route to Pharmacy Electronically, [facility]-78335, 168, cm, ... Start Date: 12/24/21 Status: Orderedmagnesium citrate 8.85% oral liquid 17 grams, By Mouth, Once, Use PRN after four days of no bowel movement. Repeat after 24 hours if no BM. Call PCP after 24 hours if no BM after second dose, # 68 Gm, 5 Refills, Soft Stop, 08/07/21 13:25:00 EST, Liquid, [facility], 17 grams By Mo... Start Date: 08/07/21 Status: Orderedmagnesium citrate 8.85% oral liquid 17 grams, By Mouth, Once, Use PRN after four days of no bowel movement. Repeat after 24 hours if no BM. Call PCP after 24 hours if no BM after second dose, # 68 Gm, 1 Refills, Soft Stop, 02/04/22 15:33:00 EDT, Liquid, [facility]-00... Start Date: 02/04/22 Status: OrderedMelatonin [...] Refills, Maintenance, 12/05/21 16:01:00 EDT, EC Capsule, [facility]-82750, Partial fill upon patient request if the prescription isfor a schedule II opioid drug., 168, cm, 11/20/21... Start Date: 12/05/21 Status: OrderedPeri-Colace 50 mg-8.6 mg oral tablet 2 tablet, By Mouth, Daily at bedtime, for 30 days, # 60 tablet, 5 Refills, Acute 05/19/22 10:38:00 EST, 11/20/21 10:38:00 EDT, Tablet, [facility]-30236, Partial fill upon patient request if the prescription is for a schedule II opioi... Start Date: 11/20/21 Stop Date: 05/19/22 Status: Orderedpolyethylene glycol 3350 oral powder for reconstitution See Instructions, MIX & DISSOLVE 17GM DOSE IN 4 TO 8 OUNCES OF WATER, DRINK THE SOLUTION ONCE A DAY NEEDED FOR CONSTIPATION, # 510 Gm, 2 Refills, Maintenance, 02/04/22 15:24:00 EDT, [facility]-97101, 30, MIX & DISSOLVE 17GM DOSE I... [...] information PersonnelName: Keturah Ashby NP Address: Address: [address] [place] [id number]
--- OUTSIDE RECORDS SUMMARY | 2022-06-26 21:16 | XMS_ITS | Continuity of Care Document ---
:1990 Author Organization [facility] Address [address] [place] [address]- Care Team Providers Name Role Phone Anthony SILVERWARE CLEANER, Jennie Bansal Primary Care Physician Encounter [facility] Date(s): 09/07/19 - 09/14/19 [facility] [address] [place] [address]- Attending Physician: Rere Suarez MD Allergies, Adverse Reactions, Alerts Substance Reaction Severity Status Risperdal Active Immunizations Given and Recorded Vaccine Date Status Refusal Reason influenza virus vaccine, inactivated1 07/03/19 Given 1Result Comment: [facility]# [id number] Medications benztropine 1 mg oral tablet 1 mg, 1, tablet, By Mouth, 2 times a day, # 60 tablet, Refills 3, Tot. Refills 3, Maintenance, 11/21/18 9:28:36 EDT, Route to Pharmacy Electronically, [id number], [facility]/pharmacy#[id number] Start Date: 11/21/18 Stop Date: [...] 11/21/18 9:26:51 EDT, Route to Pharmacy Electronically, [id number], [facility]/pharmacy #[id number] Start Date: 11/21/18 Status: Orderedloratadine 10 mg oral tablet 10 mg, 1, tablet, By Mouth, Daily, # 30 tablet, Refills 6, Tot. Refills 6, Maintenance, 08/30/19 10:07:00 EDT, Route to Pharmacy Electronically, [email or web address] #[id number], 169, cm, 07/03/19 16:03:00 EST, Height Start [...]
--- OUTSIDE RECORDS SUMMARY | 2022-06-26 21:16 | XMS_ITS | Continuity of Care Document ---
:1990 Author Organization [facility] Address [address] [place] [address]- Care Team Providers Name Role Phone Isma IZQUIERDO, Keturah Primary Care Physician Encounter [facility] Date(s): 11/28/21 - 11/29/[address] [address]- Encounter Diagnosis Intermittent explosive disorder (Final) - 11/28/21 Discharge Disposition: A-D/C Home Attending Physician: Collin Rico MD Admitting Physician: Collin Rico MD Referring Physician: Not on Staff, Referring MD Allergies, Adverse Reactions, Alerts Substance Reaction Severity Status Risperdal unkown Active Immunizations Given and Recorded Vaccine Date Status Refusal Reason SARS-CoV-2 (COVID-19) mRNA-1273 vaccine 06/09/21 Recorded SARS-CoV-2 (COVID-19) mRNA-1273 vaccine 04/17/21 Recorded influenza virus vaccine, inactivated 04/17/21 Recorded influenza virus vaccine, inactivated1 07/03/19 Given 1Result Comment: [facility]# [id number] Medications calcium carbonate 500 mg (200 mg [...] 0 Refills, Maintenance, 09/13/20 13:08:00 EDT, Suppository, [facility], Partial fill upon patient request if the prescription is for a schedule II opioid drug., 170, cm, 09/13/20 1... Start Date: 09/13/20 Status: OrderedFLUoxetine 20 mg oral capsule 40 mg, 2, capsule, By Mouth, Daily, 2 capsules to equal 40 mg daily., # 60 capsule, Refills 5, Tot. Refills 5, Maintenance, 03/08/20 10:37:00 EDT, Route to Pharmacy Electronically, [facility], 170, cm, 02/22/20 20:33:00 EDT, Height, 80.9, kg, ... Start Date: 03/08/20 Status: Orderedlidocaine 5% topical film 1 patch, Topically, Daily, PRN Pain , Mild, remove after 12 hours, # 30 patch, 3 Refills, Maintenance, 08/27/21 16:03:00 EDT, Film, [facility]- [id number], Partial fill upon patient requestif the prescription is for a schedule II opioid d... Start Date: 08/27/21 Status: OrderedLinzess 145 mcg oral capsule 1 capsule = 145 mcg, By Mouth, Daily, # 90 capsule, 4 Refills, Maintenance, 03/26/21 16:53:00 EDT, Capsule, [facility], 168, cm, 03/04/21 13:36:00 EDT, Height, 83.3, kg, 10/24/20 17:15:00 EDT, DryWeight Start Date: 03/26/21 Status: Orderedloratadine 10 mg oral tablet See Instructions, TAKE 1 TABLET BY MOUTH DAILY IN THE MORNING, # 30 tablet, Refills 5, Instructions Replace Required Details, Route to Pharmacy Electronically, [facility], 168, cm, 07/21/21 12:32:00 EST, Height, [...] Refills, Soft Stop, 08/07/21 13:25:00 EST, Liquid, [facility], 17 grams By Mo... Start Date: [...] 05/19/22 10:38:00 EST, 11/20/21 10:38:00 EDT, Tablet, [facility]-[id number], Partial fill upon patient request if the [...] of right shoulder(Confirmed) 08/15/20 Active Lives in detention(Confirmed) Active Obesity(Confirmed) Active Pain of right humerus(Confirmed) 08/15/20 Active Annual physical exam(Confirmed) Active Tobacco abuse(Confirmed) Active Umbilical hernia(Confirmed) Active Vital Signs Most recent to oldest 1 2 3 [Reference Range]: Oxygen Saturation [94-100 %] 96 % 96 % 94 % (11/29/21 11:00 AM) (11/29/21 9:00 AM) (11/29/21 5: 50 AM) Pulse Rate [55-90 bpm] 77 bpm 78 bpm 84 bpm (11/29/21 11:00 AM) (11/29/21 9:00 AM) (11/29/21 5: 50 AM) Blood Pressure [90-138/55-84 121/89 mm Hg 121/84 mm Hg 100 /72 mm Hg mm Hg] (11/29/21 11:00 AM) (11/29/21 9:00 AM) (11/29/21 5: 50 AM) Respiratory Rate [16-30 16 br/min 16 br/min 16 br/mi n br/min] (11/29/21 11:00 AM) (11/29/21 9:00 AM) (11/29/21 5: 50 AM) Temperature [96.8-100.4 DegF] 97.8 DegF 97.8 DegF (11/28/21 9:57 PM) (11/28/21 4:18 PM) Mode of Delivery (Oxygen) Room air Room air Room a ir (11/29/21 11:00 AM) (11/29/21 9:00 AM) (11/28/21 9: 57 PM) Blood pressure sites Arm, right Arm, right Arm, left (11/29/21 11:00 AM) (11/29/21 9:00 AM) (11/28/21 9: 57 PM) Temperature Route Oral Oral (11/28/21 9:57 PM) (11/28/21 4:18 PM) Social History Social History Type Response Smoking Status Former smoker, quit more padmini n 30 days ago entered on: 03/11/20 Sex Medical Equipment Implanted Date:04/07/21 Target Site:[facility] Description Quantity MRI Company Model MESH VENTRALIGHT ECHO CIR 4.5 - BARD ([id number]) 1 Bard Unknown JENNIFER: No Information Assigning Authority: FDA
--- OUTSIDE RECORDS SUMMARY | 2022-06-26 21:16 | XMS_ITS | Continuity of Care Document ---
:1990 Author Organization [facility] Address [address] [place] [address]- Care Team Providers Name Role Phone Isma IZQUIERDO, Keturah Primary Care Physician Encounter [facility] [id number] Date(s): 09/11/21 - 10/11/21 [facility] [address] [place] [phone]- [place] Allergies, Adverse Reactions, Alerts Substance Reaction Severity Status Risperdal unkown Active Immunizations Given and Recorded Vaccine Date Status Refusal Reason influenza virus vaccine, inactivated1 07/03/19 Given 1Result Comment: [facility]# [id number] Medications calcium carbonate 500 mg (200 mg [...] 0 Refills, Maintenance, 09/13/20 13:08:00 EDT, Suppository, [facility], Partial fill upon patient request if the prescription is for a schedule II opioid drug., 170, cm, 09/13/20 1... Start Date: 09/13/20 Status: OrderedFLUoxetine 20 mg oral capsule 40 mg, 2, capsule, By Mouth, Daily, 2 capsules to equal 40 mg daily., # 60 capsule, Refills 5, Tot. Refills 5, Maintenance, 03/08/20 10:37:00 EDT, Route to Pharmacy Electronically, [facility], 170, cm, 02/22/20 20:33:00 EDT, Height, 80.9, kg, ... Start Date: 03/08/20 Status: Orderedlidocaine 5% topical film 1 patch, Topically, Daily, PRN Pain , Mild, remove after 12 hours, # 30 patch, 3 Refills, Maintenance, 08/27/21 16:03:00 EDT, Film, [facility], Partial fill upon patient requestif the prescription is for a schedule II opioid d... Start Date: 08/27/21 Status: OrderedLinzess 145 mcg oral capsule 1 capsule = 145 mcg, By Mouth, Daily, # 90 capsule, 4 Refills, Maintenance, 03/26/21 16:53:00 EDT, Capsule, [facility], 168, cm, 03/04/21 13:36:00 EDT, Height, 83.3, kg, 10/24/20 17:15:00 EDT, DryWeight Start Date: 03/26/21 Status: Orderedloratadine 10 mg oral tablet See Instructions, TAKE 1 TABLET BY MOUTH DAILY IN THE MORNING, # 30 tablet, Refills 5, Instructions Replace Required Details, Route to Pharmacy Electronically, [facility], 168, cm, 07/21/21 12:32:00 EST, Height, [...] Refills, Soft Stop, 08/07/21 13:25:00 EST, Liquid, [facility], 17 grams By Mo... Start Date: [...] Gm, 2 Refills, Maintenance, 10/30/20 11:19:00 EDT, [facility], 30, MIX & DISSOLVE 17GM DOSE [...] MESH VENTRALIGHT ECHO CIR 4.5 - BARD ([id number]) 1 Bard Unknown JENNIFER: No Information Assigning Authority: FDA
--- OUTSIDE RECORDS SUMMARY | 2022-06-26 21:16 | XMS_ITS | Continuity of Care Document ---
:1990 Author Organization [facility] Address [address] [phone]- Care Team Providers Name Role Phone Isma IZQUIERDO, Keturah Primary Care Physician Encounter [facility] [id number] Date(s): 02/18/21 - 03/29/21 [facility] [address] [place], [place] [phone]- Attending Physician: Cornell Bravo Allergies, Adverse Reactions, Alerts Substance Reaction Severity Status Risperdal Active Immunizations Given and Recorded Vaccine Date Status Refusal Reason influenza virus vaccine, inactivated1 07/03/19 Given 1Result Comment: [facility]# [id number] Medications benztropine 1 mg oral tablet 1 mg, 1, tablet, By Mouth, 2 times a day, # 60 tablet, Refills 3, Tot. Refills 3, Maintenance, 11/21/18 9:28:36 EDT, Route to Pharmacy Electronically, [id number], [facility]/pharmacy#[id number] Start Date: 11/21/18 Stop Date: 03/21/19 Status: [...] 03/08/20 10:37:00 EDT, Route to Pharmacy Electronically, [facility], 170, cm, 02/22/20 20:33:00 EDT, Height, [...] 4 Refills, Maintenance, 03/26/21 16:53:00 EDT, Capsule, [facility], 168, cm, 03/04/21 13:36:00 EDT, Height, 83.3, kg, 10/24/20 17:15:00 EDT, DryWeight Start Date: 03/26/21 Status: OrderedLinzess 72 mcg oral capsule 1 capsule = 72 mcg, By Mouth, Daily, do not crush or chew, # 90 capsule, 3 Refills, Maintenance, 12/25/20 13:52:00 EDT, Capsule, [facility], Partial fill upon patient request if the prescription is for a schedule II opioid drug., 168, cm, ... Start Date: 12/25/20 Status: Orderedloratadine 10 mg oral tablet See Instructions, TAKE 1 TABLET BY MOUTH DAILY, # 30 tablet, Refills 5, Tot. Refills 5, Maintenance,03/14/21 11:21:00 EDT, Instructions Replace Required Details, Route to Pharmacy Electronically, [facility], 168, cm, 03/04/21 13:36:00 EDT, Frederic... Start Date: 03/14/21 Status: Orderedmagnesium citrate 8.85% oral liquid 300 mL = 17.45 Gm, By Mouth, Once, Use PRN after four days of no bowel movement. Repeat after 24 horus if no BM. Call PCP after 24 hours if no BM after second dose, # 300 mL, 5 Refills, Soft Stop, 12/13/20 15:34:00 EDT, Liquid, [facility], 300... Start Date: 12/13/20 Status: OrderedMelatonin [...] 15:39:00 EST, 12/11/20 15:39:00 EDT, REC Powder, [facility], Partial fill uponpatient request if the [...] Gm, 2 Refills, Maintenance, 10/30/20 11:19:00 EDT, [facility], 30, MIX & DISSOLVE 17GM DOSE [...]
--- OUTSIDE RECORDS SUMMARY | 2022-06-26 21:16 | XMS_ITS | Continuity of Care Document ---
:1990 Author Organization [facility] Address [address] [place] [address]- Care Team Providers Name Role Phone Isma IZQUIERDO, Keturah Primary Care Physician Encounter [facility] Date(s): 02/05/22 - 03/07/22 [facility] [address] [place] [phone]- [place] Allergies, Adverse Reactions, Alerts Substance Reaction Severity Status Risperdal unkown Active Immunizations Given and Recorded Vaccine Date Status Refusal Reason SARS-CoV-2 (COVID-19) mRNA-1273 vaccine 06/09/21 Recorded SARS-CoV-2 (COVID-19) mRNA-1273 vaccine 04/17/21 Recorded influenza virus vaccine, inactivated 04/17/21 Recorded influenza virus vaccine, inactivated1 07/03/19 Given 1Result Comment: [facility]# [id number] Medications Ativan 2 mg oral tablet 1 [...] 0 Refills, Maintenance, 02/03/22 15:20:00 EDT, Suppository, [facility]-10352, Partial fill upon patient request if the [...] 3 Refills, Maintenance, 08/27/21 16:03:00 EDT, Film, [facility]- [id number], Partial fill upon patient requestif the prescription is for a schedule II opioid d... Start Date: 08/27/21 Status: OrderedLinzess 145 mcg oral capsule 1 capsule, By Mouth, Daily in AM, # 30 capsule, 0 Refills, [place] [id number], 168, cm, :41:00 EDT, Height, 85.8, kg, 04/07/21 14:21:00 EDT, Dry Weight Start Date: 01/08/22 Status: Orderedloratadine 10 mg oral tablet See Instructions, TAKE 1 TABLET BY MOUTH DAILY IN THE MORNING, # 30 tablet, Refills 5, Tot. Refills 5, 12/24/21 14:55:00 EDT, Instructions Replace Required Details, Route to Pharmacy Electronically, [facility]-[id number], 168, cm, ... Start Date: 12/24/21 Status: Orderedmagnesium citrate 8.85% oral liquid 17 grams, By Mouth, Once, Use PRN after four days of no bowel movement. Repeat after 24 hours if no BM. Call PCP after 24 hours if no BM after second dose, # 68 Gm, 5 Refills, Soft Stop, 08/07/21 13:25:00 EST, Liquid, [facility], 17 grams By Mo... Start Date: 08/07/21 Status: Orderedmagnesium citrate 8.85% oral liquid 17 grams, By Mouth, Once, Use PRN after four days of no bowel movement. Repeat after 24 hours if no BM. Call PCP after 24 hours if no BM after second dose, # 68 Gm, 1 Refills, Soft Stop, 02/04/22 15:33:00 EDT, Liquid, [facility]-00... Start Date: 02/04/22 Status: OrderedMelatonin 5 mg [...] Refills, Maintenance, 12/05/21 16:01:00 EDT, EC Capsule, [facility]-[id number], Partial fill upon patient request if the prescription isfor a schedule II opioid drug., 168, cm, 11/20/21... Start Date: 12/05/21 Status: OrderedPeri-Colace 50 mg-8.6 mg oral tablet 2 tablet, By Mouth, Daily at bedtime, for 30 days, # 60 tablet, 5 Refills, Acute 05/19/22 10:38:00 EST, 11/20/21 10:38:00 EDT, Tablet, [facility]-[id number], Partial fill upon patient request if the prescription is for a schedule II opioi... Start Date: 11/20/21 Stop Date: 05/19/22 Status: Orderedpolyethylene glycol 3350 oral powder for reconstitution See Instructions, MIX & DISSOLVE 17GM DOSE IN 4 TO 8 OUNCES OF WATER, DRINK THE SOLUTION ONCE A DAY NEEDED FOR CONSTIPATION, # 510 Gm, 2 Refills, Maintenance, 02/04/22 15:24:00 EDT, [facility]-[id number], 30, MIX & DISSOLVE 17GM DOSE I... [...] right Confirmed 08/15/20 Active shoulder Lives in penitentiary Confirmed Active Obesity Confirmed Active Pain of [...] information PersonnelName: Keturah Ashby NP Address: Address: [address] [place] [id number]
--- OUTSIDE RECORDS SUMMARY | 2022-06-26 21:16 | XMS_ITS | Continuity of Care Document ---
:1990 Author Organization [facility] Address [address] [place] [address]- Care Team Providers Name Role Phone Isma IZQUIERDO, Keturah Primary Care Physician Encounter [facility] Date(s): 10/29/21 - 11/28/21 [facility] [address] [phone] [place] Allergies, Adverse Reactions, Alerts Substance Reaction Severity Status Risperdal unkown Active Immunizations Given and Recorded Vaccine Date Status Refusal Reason SARS-CoV-2 (COVID-19) mRNA-1273 vaccine 06/09/21 Recorded SARS-CoV-2 (COVID-19) mRNA-1273 vaccine 04/17/21 Recorded influenza virus vaccine, inactivated 04/17/21 Recorded influenza virus vaccine, inactivated1 07/03/19 Given 1Result Comment: [facility]# [id number] Medications calcium carbonate 500 mg (200 mg [...] 0 Refills, Maintenance, 09/13/20 13:08:00 EDT, Suppository, [facility], Partial fill upon patient request if the prescription is for a schedule II opioid drug., 170, cm, 09/13/20 1... Start Date: 09/13/20 Status: OrderedFLUoxetine 20 mg oral capsule 40 mg, 2, capsule, By Mouth, Daily, 2 capsules to equal 40 mg daily., # 60 capsule, Refills 5, Tot. Refills 5, Maintenance, 03/08/20 10:37:00 EDT, Route to Pharmacy Electronically, [facility], 170, cm, 02/22/20 20:33:00 EDT, Height, 80.9, kg, ... Start Date: 03/08/20 Status: Orderedlidocaine 5% topical film 1 patch, Topically, Daily, PRN Pain , Mild, remove after 12 hours, # 30 patch, 3 Refills, Maintenance, 08/27/21 16:03:00 EDT, Film, [facility]- 04149, Partial fill upon patient requestif the prescription is for a schedule II opioid d... Start Date: 08/27/21 Status: OrderedLinzess 145 mcg oral capsule 1 capsule = 145 mcg, By Mouth, Daily, # 90 capsule, 4 Refills, Maintenance, 03/26/21 16:53:00 EDT, Capsule, [facility], 168, cm, 03/04/21 13:36:00 EDT, Height, 83.3, kg, 10/24/20 17:15:00 EDT, DryWeight Start Date: 03/26/21 Status: Orderedloratadine 10 mg oral tablet See Instructions, TAKE 1 TABLET BY MOUTH DAILY IN THE MORNING, # 30 tablet, Refills 5, Instructions Replace Required Details, Route to Pharmacy Electronically, [facility], 168, cm, 07/21/21 12:32:00 EST, Height, [...] Refills, Soft Stop, 08/07/21 13:25:00 EST, Liquid, [facility], 17 grams By Mo... Start Date: [...] 05/19/22 10:38:00 EST, 11/20/21 10:38:00 EDT, Tablet, [facility]-05480, Partial fill upon patient request if the [...] MESH VENTRALIGHT ECHO CIR 4.5 - BARD ([id number]) 1 Bard Unknown JENNIFER: No Information Assigning Authority: FDA
--- OUTSIDE RECORDS SUMMARY | 2022-06-26 21:16 | XMS_ITS | Continuity of Care Document ---
:1990 Author Organization [facility] Address [address] [place] [address]- Care Team Providers Name Role Phone Isma IZQUIERDO, Keturah Primary Care Physician Encounter [facility] Date(s): 10/15/21 - 11/22/21 [facility] [address] [phone]- Attending Physician: Rere Suarez MD Allergies, Adverse Reactions, Alerts Substance Reaction Severity Status Risperdal unkown Active Immunizations Given and Recorded Vaccine Date Status Refusal Reason SARS-CoV-2 (COVID-19) mRNA-1273 vaccine 06/09/21 Recorded SARS-CoV-2 (COVID-19) mRNA-1273 vaccine 04/17/21 Recorded influenza virus vaccine, inactivated 04/17/21 Recorded influenza virus vaccine, inactivated1 07/03/19 Given 1Result Comment: [facility]NOTE 2[facility]# [id number] Medications calcium carbonate 500 mg (200 mg [...] 0 Refills, Maintenance, 09/13/20 13:08:00 EDT, Suppository, [facility], Partial fill upon patient request if the prescription is for a schedule II opioid drug., 170, cm, 09/13/20 1... Start Date: 09/13/20 Status: OrderedFLUoxetine 20 mg oral capsule 40 mg, 2, capsule, By Mouth, Daily, 2 capsules to equal 40 mg daily., # 60 capsule, Refills 5, Tot. Refills 5, Maintenance, 03/08/20 10:37:00 EDT, Route to Pharmacy Electronically, [facility], 170, cm, 02/22/20 20:33:00 EDT, Height, 80.9, kg, ... Start Date: 03/08/20 Status: Orderedlidocaine 5% topical film 1 patch, Topically, Daily, PRN Pain , Mild, remove after 12 hours, # 30 patch, 3 Refills, Maintenance, 08/27/21 16:03:00 EDT, Film, [facility]- 89888, Partial fill upon patient requestif the prescription is for a schedule II opioid d... Start Date: 08/27/21 Status: OrderedLinzess 145 mcg oral capsule 1 capsule = 145 mcg, By Mouth, Daily, # 90 capsule, 4 Refills, Maintenance, 03/26/21 16:53:00 EDT, Capsule, [facility], 168, cm, 03/04/21 13:36:00 EDT, Height, 83.3, kg, 10/24/20 17:15:00 EDT, DryWeight Start Date: 03/26/21 Status: Orderedloratadine 10 mg oral tablet See Instructions, TAKE 1 TABLET BY MOUTH DAILY IN THE MORNING, # 30 tablet, Refills 5, Instructions Replace Required Details, Route to Pharmacy Electronically, [facility], 168, cm, 07/21/21 12:32:00 EST, Height, [...] Refills, Soft Stop, 08/07/21 13:25:00 EST, Liquid, [facility], 17 grams By Mo... Start Date: [...] 10:38:00 EST, 11/20/21 10:38:00 EDT, Tablet, [facility]-09211, Partial fill upon patient request if the [...] of right shoulder(Confirmed) 08/15/20 Active Lives in shelter(Confirmed) Active Obesity(Confirmed) Active Pain of right humerus(Confirmed) 08/15/20 Active Annual physical exam(Confirmed) Active Tobacco abuse(Confirmed) Active Umbilical hernia(Confirmed) Active Social History Social History Type Response Smoking Status Former smoker, quit more padmini n 30 days ago entered on: 03/11/20 Sex Medical Equipment Implanted Date:04/07/21 Target Site:[facility] Description Quantity MRI Company Model MESH VENTRALIGHT ECHO CIR 4.5 - BARD ([id number]) 1 Bard Unknown JENNIFER: No Information Assigning Authority: FDA
--- OUTSIDE RECORDS SUMMARY | 2022-06-26 21:16 | XMS_ITS | Continuity of Care Document ---
:1990 Author Organization [facility] Address [address] [place] [address]- Care Team Providers Name Role Phone Isma IZQUIERDO, Keturah Primary Care Physician Encounter [facility] Date(s): 08/27/21 - 09/26/21 [facility] [address] [place] [phone] [place] Allergies, Adverse Reactions, Alerts Substance Reaction Severity Status Risperdal unkown Active Immunizations Given and Recorded Vaccine Date Status Refusal Reason influenza virus vaccine, inactivated1 07/03/19 Given 1Result Comment: [facility]# [id number] Medications calcium carbonate 500 mg (200 mg [...] 0 Refills, Maintenance, 09/13/20 13:08:00 EDT, Suppository, [facility], Partial fill upon patient request if the prescription is for a schedule II opioid drug., 170, cm, 09/13/20 1... Start Date: 09/13/20 Status: OrderedFLUoxetine 20 mg oral capsule 40 mg, 2, capsule, By Mouth, Daily, 2 capsules to equal 40 mg daily., # 60 capsule, Refills 5, Tot. Refills 5, Maintenance, 03/08/20 10:37:00 EDT, Route to Pharmacy Electronically, [facility], 170, cm, 02/22/20 20:33:00 EDT, Height, 80.9, kg, ... Start Date: 03/08/20 Status: Orderedlidocaine 5% topical film 1 patch, Topically, Daily, PRN Pain , Mild, remove after 12 hours, # 30 patch, 3 Refills, Maintenance, 08/27/21 16:03:00 EDT, Film, [facility]- 02080, Partial fill upon patient requestif the prescription is for a schedule II opioid d... Start Date: 08/27/21 Status: OrderedLinzess 145 mcg oral capsule 1 capsule = 145 mcg, By Mouth, Daily, # 90 capsule, 4 Refills, Maintenance, 03/26/21 16:53:00 EDT, Capsule, [facility], 168, cm, 03/04/21 13:36:00 EDT, Height, 83.3, kg, 10/24/20 17:15:00 EDT, DryWeight Start Date: 03/26/21 Status: Orderedloratadine 10 mg oral tablet See Instructions, TAKE 1 TABLET BY MOUTH DAILY IN THE MORNING, # 30 tablet, Refills 5, Instructions Replace Required Details, Route to Pharmacy Electronically, [facility], 168, cm, 07/21/21 12:32:00 EST, Height, [...] 09/04/21 16:55:00 EDT, Route to Pharmacy Electronically, [facility], Partial f... Start Date: 09/04/21 Stop Date: [...] MESH VENTRALIGHT ECHO CIR 4.5 - BARD ([id number]) 1 Bard Unknown JENNIFER: No Information Assigning Authority: FDA
--- OUTSIDE RECORDS SUMMARY | 2022-06-26 21:16 | XMS_ITS | Continuity of Care Document ---
:1990 Author Organization [facility] Address [address] [place] [id number]- Care Team Providers Name Role Phone Diego Ibarra Primary Care Physician Encounter [facility] [id number] Date(s): 08/15/20 - 08/15/[address] [address]- Discharge Disposition: A-D/C Home Attending Physician: Gerard Keita MD Admitting Physician: Gerard Keita MD Referring Physician: Not on Staff, Referring MD Allergies, Adverse Reactions, Alerts Substance Reaction Severity Status Risperdal Active Immunizations Given and Recorded Vaccine Date Status Refusal Reason influenza virus vaccine, inactivated1 07/03/19 Given 1Result Comment: [facility]# [id number] Medications benztropine 1 mg oral tablet 1 mg, 1, tablet, By Mouth, 2 times a day, # 60 tablet, Refills 3, Tot. Refills 3, Maintenance, 11/21/18 9:28:36 EDT, Route to Pharmacy Electronically, [id number], [facility]/pharmacy#[id number] Start Date: 11/21/18 Stop Date: 03/21/19 [...] 5 Refills, Maintenance, 06/04/20 9:18:00 EST, Capsule, [facility], To replace 50 mg capsules, 170, cm, 04/01/20 14:07:00 EDT, Height, 83.1, kg, 03/27/20 18:25:00 EDT... Start Date: 06/04/20 Status: OrderedFLUoxetine 20 mg oral capsule 40 mg, 2, capsule, By Mouth, Daily, 2 capsules to equal 40 mg daily., # 60 capsule, Refills 5, Tot. Refills 5, Maintenance, 03/08/20 10:37:00 EDT, Route to Pharmacy Electronically, [facility], 170, cm, 02/22/20 20:33:00 EDT, Height, 80.9, kg, ... Start Date: 03/08/20 Status: OrderedhydrOXYzine hydrochloride 50 mg oral tablet 1 tablet = 50 mg, By Mouth, Every 4 hours, PRN for anxiety, # 40 tablet, 0 Refills, Maintenance, 02/02/20 11:36:00 EDT, Tablet Start Date: 02/02/20 Status: Orderedibuprofen 600 mg oral tablet 600 mg, 1, tablet, By Mouth, Every 6 hours, # 40 tablet, Refills 0, Tot. Refills 0, Acute 08/16/20 18:38:00 EST, 08/15/20 18:38:00 EST, Route to Pharmacy Electronically, [facility], Partial fill upon patient request if the prescription is for a s... Start Date: 08/15/20 Stop Date: 08/16/20 Status: OrderedLinzess 145 mcg oral capsule 1 capsule = 145 mcg, By Mouth, Daily, # 90 capsule, 4 Refills, Maintenance, 09/27/19 14:06:00 EDT, Capsule, [facility] #[id number], 169, cm, 07/03/19 16:03:00 EST, Height Start Date: 09/27/19 Status: Orderedloratadine 10 mg oral tablet 10 mg, 1, tablet, By Mouth, Daily, # 30 tablet, Refills 6, Tot. Refills 6, Maintenance, 03/27/20 10:07:00 EDT, Route to Pharmacy Electronically, [facility], 170, cm, 02/22/20 20:33:00 EDT, Height,80.9, [...] Refills, Soft Stop, 03/21/20 14:01:00 EDT, Liquid, [facility], 300... Start Date: 03/21/20 Status: OrderedMelatonin [...] Refills, Acute 08/03/23 11:00:00EST, 08/02/20 8:59:00 EST, [facility], 28, 1 patch Topically Daily,Instr:ROTATE APPLICATION [...] EDT, Dry Weight Start Date: 03/08/20 Status: Orderedpolyethylene glycol 3350 oral powder for reconstitution See Instructions, MIX & DISSOLVE 17GM DOSE IN 4 TO 8 OUNCES OF WATER, DRINK THE SOLUTION ONCE A DAY NEEDED FOR CONSTIPATION, # 510 Gm, 2 Refills, Acute, [facility], 30, MIX & DISSOLVE 17GM DOSE IN 4 TO 8 OUNCES OF WATER, DRINK THE SOLUTION ONC... Start Date: 05/03/20 Status: OrderedZyPREXA 15 mg oral tablet 1 [...] Annual physical exam(Confirmed) Active Tobacco abuse(Confirmed) Active Results Radiology Reports Exam Date Time Procedure Performing Provider Status 08/15/20 5:58 PM Shoulder Min 2 Views Right Elayne Cook; Demetrius [facility] (Verified) Notes:(Shoulder Min 2 Views Right) Reason For Exam: with Pain;TraumaRESULT: Shoulder Min 2 Views Right Shoulder Min 2 Views Right Hx of Present Illness: Right shoulder pain. COMPARISON: None. FINDINGS: Acute comminuted fracture involving the right humeral head and neck. No dislocation the shoulder. Included clavicle and scapula are intact. No acute rib fracture. Soft tissue swelling overlying the shoulder. IMPRESSION: Acute comminuted fracture of the proximal humerus. No dislocation. WSN: [id number] Ordering Physician: Gerard Keita Dictated By: Mata Barker DO Dictated Date/Time: 08/15/20 6:06 pm Reviewed By: Mata Barker DO Signed By: Mata Barker DO Signed Date/Time: 08/15/20 6:06 pm Transcribed By: LRAISA Transcribed Date/Time: 08/15/20 6:04 pm Vital Signs Most recent to oldest [Reference Range]: 1 2 Height 170 cm (08/15/20 5:31 PM) Weight 86.6 kg (08/15/20 5:31 PM) Oxygen Saturation [94-100 %] 98 % 100 % (08/15/20 6:14 PM) (08/15/20 5:31 PM) Pulse Rate [55-90 bpm] 78 bpm 80 bpm (08/15/20 6:14 PM) (08/15/20 5:31 PM) Blood Pressure [90-138/55-84 mm Hg] 115/80 mm Hg (08/15/20 5:31 PM) Respiratory Rate [16-30 br/min] 20 br/min 18 br/mi n (08/15/20 6:14 PM) (08/15/20 5:31 PM) Temperature [96.8-100.4 DegF] 98.3 DegF (08/15/20 5:31 PM) Mode of Delivery (Oxygen) Room air Room air (08/15/20 6:14 PM) (08/15/20 5:31 PM) Blood pressure sites Arm, right (08/15/20 5:31 PM) Temperature Route Temporal (08/15/20 5:31 PM) Dry Weight 86.6 kg (08/15/20 5:31 PM) Weight Obtained Via Standing scale (08/15/20 5:31 PM) Social History Social History Type Response Smoking Status Former smoker, quit more padmini n 30 days ago entered on: 03/11/20 Sex
--- OUTSIDE RECORDS SUMMARY | 2022-06-26 21:16 | XMS_ITS | Continuity of Care Document ---
:1990 Author Organization [facility] Address [address] [place] [address]- Care Team Providers Name Role Phone Isma IZQIUERDO, Keturah Primary Care Physician Encounter [facility] [id number] Date(s): 06/20/21 - 06/27/21 [facility] [address] [phone]- Attending Physician: Diego Islas Allergies, Adverse Reactions, Alerts Substance Reaction Severity Status Risperdal unkown Active Immunizations Given and Recorded Vaccine Date Status Refusal Reason influenza virus vaccine, inactivated1 07/03/19 Given 1Result Comment: [facility]# [id number] Medications Augmentin 875 mg-125 mg oral tablet 1 tablet, By Mouth, Every 12 hours, for 7 days, with food or milk, # 14 tablet, 0 Refills, Acute 07/03/21 10:46:00 EST, 06/26/21 10:46:00 EST, Tablet, [facility], Partial fill upon patient requestif the prescription is for a schedule II opioid d... Start Date: 06/26/21 Stop Date: 07/03/21 Status: Orderedcalcium carbonate 500 mg (200 mg [...] 03/08/20 10:37:00 EDT, Route to Pharmacy Electronically, [facility], 170, cm, 02/22/20 20:33:00 EDT, Height, [...] 4 Refills, Maintenance, 03/26/21 16:53:00 EDT, Capsule, [facility], 168, cm, 03/04/21 13:36:00 EDT, Height, 83.3, kg, 10/24/20 17:15:00 EDT, DryWeight Start Date: 03/26/21 Status: Orderedloratadine 10 mg oral tablet See Instructions, TAKE 1 TABLET BY MOUTH DAILY, # 30 tablet, Refills 5, Tot. Refills 5, Maintenance,03/14/21 11:21:00 EDT, Instructions Replace Required Details, Route to Pharmacy Electronically, [facility], 168, cm, 03/04/21 13:36:00 EDT, Heigh... Start Date: 03/14/21 Status: Orderedmagnesium citrate 8.85% oral liquid 300 mL = 17.45 Gm, By Mouth, Once, Use PRN after four days of no bowel movement. Repeat after 24 hours if no BM. Call PCP after 24 hours if no BM after second dose, # 300 mL, 5 Refills, Soft Stop, 06/26/21 10:49:00 EST, Liquid, [facility], 300... Start Date: 06/26/21 Status: OrderedMelatonin [...] 15:39:00 EST, 12/11/20 15:39:00 EDT, REC Powder, [facility], Partial fill uponpatient request if the [...] of right shoulder(Confirmed) 08/15/20 Active Lives in alf(Confirmed) Active Obese class I(Confirmed) Active Obesity(Confirmed) Active Pain of right humerus(Confirmed) 08/15/20 Active Annual physical exam(Confirmed) Active Tobacco abuse(Confirmed) Active Umbilical hernia(Confirmed) Active Vital Signs Most recent to oldest [Reference Range]: 1 Height 168 cm (06/20/21 1:23 PM) Weight 87.6 kg (06/20/21 1:23 PM) Oxygen Saturation [94-100 %] 99 % (06/20/21 1:23 PM) Pulse Rate [55-90 bpm] 75 bpm (06/20/21 1:23 PM) Body Mass Index [18.5-24.99] 31.04 *>HHI* (06/20/21 1:23 PM) Blood Pressure [90-138/55-84 mm Hg] 118/70 mm Hg (06/20/21 1:23 PM) Respiratory Rate [16-30 br/min] 17 br/min (06/20/21 1:23 PM) Temperature [96.8-100.4 DegF] 98.3 DegF (06/20/21 1:23 PM) Liters per Minute 0 L/min (06/20/21 1:23 PM) Mode of Delivery (Oxygen) Room air (06/20/21 1:23 PM) Blood pressure sites Arm, left (06/20/21 1:23 PM) Temperature Route Temporal (06/20/21 1:23 PM) Weight Obtained Via Standing scale (06/20/21 1:23 PM) Social History Social History Type Response Smoking Status Former smoker, quit more padmini n 30 days ago entered on: 03/11/20 Sex Medical Equipment Implanted Date:04/07/21 Target Site:[facility] Description Quantity MRI Company Model MESH VENTRALIGHT ECHO CIR 4.5 - BARD ([id number]) 1 Bard Unknown JENNIFER: No Information Assigning Authority: FDA
--- OUTSIDE RECORDS SUMMARY | 2022-06-26 21:16 | XMS_ITS | Continuity of Care Document ---
:1990 Author Organization [facility] Address [address] [place] [address]- Care Team Providers Name Role Phone Isma IZQUIERDO, Keturah Primary Care Physician Encounter [facility] Date(s): 09/12/21 - 09/15/[address] [address]- Encounter Diagnosis Pain of left great toe (Discharge Diagnosis) - 09/13/21 Discharge Disposition: A-D/C Home Attending Physician: Alie Coe MD Admitting Physician: Alie Coe MD Referring Physician: Not on Staff, Referring MD Allergies, Adverse Reactions, Alerts Substance Reaction Severity Status Risperdal unkown Active Immunizations Given and Recorded Vaccine Date Status Refusal Reason influenza virus vaccine, inactivated1 07/03/19 Given 1Result Comment: [facility]# [id number] Medications calcium carbonate 500 mg (200 mg [...] 0 Refills, Maintenance, 09/13/20 13:08:00 EDT, [facility], [facility] fill upon patient request if the prescription is for a schedule II opioid drug., 170, cm, 09/13/20 1... Start Date: 09/13/20 Status: OrderedFLUoxetine 20 mg oral capsule 40 mg, 2, capsule, By Mouth, Daily, 2 capsules to equal 40 mg daily., # 60 capsule, Refills 5, Tot. Refills 5, Maintenance, 03/08/20 10:37:00 EDT, [facility] to [facility], [facility], cm, 02/22/20 20:33:00 EDT, Height, 80.9, kg, ... Start Date: 03/08/20 Status: Orderedlidocaine 5% topical film 1 patch, Topically, Daily, PRN Pain , Mild, remove after 12 hours, # 30 patch, 3 Refills, Maintenance, 08/27/21 16:03:00 EDT, Film, [facility]- [id number], Partial fill upon patient requestif the prescription is for a schedule II opioid d... Start Date: 08/27/21 Status: OrderedLinzess 145 mcg oral capsule 1 capsule = 145 mcg, By Mouth, Daily, # 90 capsule, 4 Refills, Maintenance, 03/26/21 16:53:00 EDT, Capsule, [facility], 168, cm, 03/04/21 13:36:00 EDT, Height, 83.3, kg, 10/24/20 17:15:00 EDT, DryWeight Start Date: 03/26/21 Status: Orderedloratadine 10 mg oral tablet See Instructions, TAKE 1 TABLET BY MOUTH DAILY IN THE MORNING, # 30 tablet, Refills 5, Instructions Replace Required Details, Route to Pharmacy Electronically, [facility], 168, cm, 07/21/21 12:32:00 EST, Height, [...] Refills, Soft Stop, 08/07/21 13:25:00 EST, Liquid, [facility], 17 grams By Mo... Start Date: [...] Gm, 2 Refills, Maintenance, 10/30/20 11:19:00 EDT, [facility], 30, MIX & DISSOLVE 17GM DOSE IN 4 TO 8 OUNCES OF... Start Date: 10/30/20 Status: Orderedpropranolol 10 mg oral tablet 10 mg, Tablet, By Mouth, 09/15/21 9:00:00 EDT Start Date: 09/15/21 Stop Date: 09/15/21 Status: CompletedSEROquel 200 mg oral tablet 600 mg, 3, [...] 09/04/21 16:55:00 EDT, Route to Pharmacy Electronically, [facility], Partial f... Start Date: 09/04/21 Stop Date: 10/04/21 Status: Ordered Problem List Condition Effective Dates Status Health Status Informant Allergic rhinitis(Confirmed) Active Bipolar disorder(Confirmed) Active Chronic constipation(Confirmed) Active Developmental disability(Confirmed) Active Intermittent explosive disorder in Active adult(Confirmed) Chronic GERD(Confirmed) Active Injury of right shoulder(Confirmed) 08/15/20 Active Lives in snf(Confirmed) Active Obesity(Confirmed) Active Pain of right humerus(Confirmed) 08/15/20 Active Annual physical exam(Confirmed) Active Tobacco abuse(Confirmed) Active Umbilical hernia(Confirmed) Active Diagnosis Diagnosis Type Effective Dates Health Status Clinical In formant Service Pain of left Discharge 09/13/21 Non-Specified great toe Diagnosis Vital Signs Most recent to oldest 1 2 3 [Reference Range]: Oxygen Saturation [94-100 %] 97 % 98 % 94 % (09/15/21 3:28 PM) (09/15/21 6:28 AM) (09/14/21 9:2 0 PM) Pulse Rate [55-90 bpm] 69 bpm 62 bpm 75 bpm (09/15/21 3:28 PM) (09/15/21 10:34 AM) (09/15/21 6: 28 AM) Blood Pressure [90-138/55-84 107/71 mm Hg 140/70 mm Hg 100 /56 mm Hg mm Hg] (09/15/21 3:28 PM) *H* (09/15/21 6:28 AM) (09/15/21 10:34 AM) Respiratory Rate [16-30 18 br/min 18 br/min 18 br/mi n br/min] (09/15/21 3:28 PM) (09/15/21 6:28 AM) (09/14/21 9:2 0 PM) Temperature [96.8-100.4 DegF] 97.3 DegF 98.2 DegF 97 .9 DegF (09/15/21 6:28 AM) (09/14/21 9:20 PM) (09/14/21 6:4 4 AM) Mode of Delivery (Oxygen) Room air Room air Room a ir (09/15/21 3:28 PM) (09/15/21 6:28 AM) (09/14/21 9:2 0 PM) Blood pressure sites Arm, right Arm, left Arm, left (09/15/21 3:28 PM) (09/14/21 6:44 AM) (09/13/21 8:08 PM) Temperature Route Oral Oral Oral (09/15/21 6:28 AM) (09/14/21 9:20 PM) (09/14/21 6:4 4 AM) Social History Social History Type Response Smoking Status Former smoker, quit more padmini n 30 days ago entered on: 03/11/20 Sex Medical Equipment Implanted Date:04/07/21 Target Site:[facility] Description Quantity MRI Company Model MESH VENTRALIGHT ECHO CIR 4.5 - BARD ([id number]) 1 Bard Unknown JENNIFER: No Information Assigning Authority: FDA
--- OUTSIDE RECORDS SUMMARY | 2022-06-26 21:16 | XMS_ITS | Continuity of Care Document ---
:1990 Author Organization [facility] Address [address] [place] [address]- Care Team Providers Name Role Phone Anthony LEGAL MANAGER, Jennie Bansal Primary Care Physician Encounter [facility] NBR [id number] Date(s): 08/30/19 - 09/06/19 [facility] [address] [place] [address]- Attending Physician: Not on Staff, Attending MD Allergies, Adverse Reactions, Alerts Substance Reaction Severity Status Risperdal Active Immunizations Given and Recorded Vaccine Date Status Refusal Reason influenza virus vaccine, inactivated1 07/03/19 Given 1Result Comment: [facility]# [id number] Medications benztropine 1 mg oral tablet 1 mg, 1, tablet, By Mouth, 2 times a day, # 60 tablet, Refills 3, Tot. Refills 3, Maintenance, 11/21/18 9:28:36 EDT, Route to Pharmacy Electronically, [id number], [facility]/pharmacy#[id number] Start Date: 11/21/18 Stop Date: 03/21/19 [...] 11/21/18 9:26:51 EDT, Route to Pharmacy Electronically, [id number], [facility]/pharmacy #[id number] Start Date: 11/21/18 Status: Orderedloratadine 10 mg oral tablet 10 mg, 1, tablet, By Mouth, Daily, # 30 tablet, Refills 6, Tot. Refills 6, Maintenance, 08/30/19 10:07:00 EDT, Route to Pharmacy Electronically, [facility] #[id number], 169, cm, 07/03/19 16:03:00 EST, Height Start [...] 12/26/18 11:36:17 EDT Start Date: 12/26/18 Status: Orderedpenicillin V potassium 500 mg oral tablet 1 tablet = 500 mg, By Mouth, Every 8 hours, for 10 days, on an empty stomach, # 30 tablet, 0 Refills, Acute 09/09/19 10:07:00 EDT, 08/30/19 10:07:00 EDT, [facility] #[id number], 169, cm, 07/03/19 16:03:00 EST, Height Start Date: 08/30/19 Stop Date: 09/09/19 Status: OrderedraNITIdine 150 mg oral tablet 1 [...]
--- OUTSIDE RECORDS SUMMARY | 2022-06-26 21:16 | XMS_ITS | Continuity of Care Document ---
:1990 Author Organization [facility] Address [address] [place] [address]- Care Team Providers Name Role Phone Isma IZQUIERDO, Keturah Primary Care Physician [id number] Date(s): 11/29/20 - 12/29/20 [facility] [address] [place], [place] [address] Allergies, Adverse Reactions, Alerts Substance Reaction Severity Status Risperdal Active Immunizations Given and Recorded Vaccine Date Status Refusal Reason influenza virus vaccine, inactivated1 07/03/19 Given 1Result Comment: [facility]# [id number] Medications benztropine 1 mg oral tablet 1 mg, 1, tablet, By Mouth, 2 times a day, # 60 tablet, Refills 3, Tot. Refills 3, Maintenance, 11/21/18 9:28:36 EDT, Route to Pharmacy Electronically, [id number], [facility]/pharmacy#[id number] Start Date: 11/21/18 Stop Date: [...] 03/08/20 10:37:00 EDT, Route to Pharmacy Electronically, [facility], 170, cm, 02/22/20 20:33:00 EDT, Height, [...] 4 Refills, Maintenance, 09/19/20 13:00:00 EDT, Capsule, [facility], 170, cm, 09/13/20 15:29:00 EDT, Height, 88.3, [...] 10/23/20 10:07:00 EDT, Route to Pharmacy Electronically, [facility], 170, cm, 09/02/20 15:24:00 EDT, Height,86.6, [...] Refills, Soft Stop, 12/13/20 15:34:00 EDT, Liquid, [facility], 300... Start Date: 12/13/20 Status: OrderedMelatonin [...] 15:39:00 EST, 12/11/20 15:39:00 EDT, REC Powder, [facility], Partial fill uponpatient request if the [...] Gm, 2 Refills, Maintenance, 10/30/20 11:19:00 EDT, [facility], 30, MIX & DISSOLVE 17GM DOSE [...] 12/11/20 15:40:00 EDT, Route to Pharmacy Electronically, [facility], Partial fill upon patient request if [...]
--- OUTSIDE RECORDS SUMMARY | 2022-06-26 21:16 | XMS_ITS | Continuity of Care Document ---
:1990 Author Organization [facility] Address [address] [place] [address]- Care Team Providers Name Role Phone Diego Ibarra Primary Care Physician Encounter [facility] Date(s): 09/20/20 - 09/20/[address] [address]- Discharge Disposition: A-D/C Home Attending Physician: Uli Infante MD Admitting Physician: Uli Infante MD Referring Physician: Not on Staff, Referring MD Allergies, Adverse Reactions, Alerts Substance Reaction Severity Status Risperdal Active Immunizations Given and Recorded Vaccine Date Status Refusal Reason influenza virus vaccine, inactivated1 07/03/19 Given 1Result Comment: [facility]# [id number] Medications benztropine 1 mg oral tablet 1 mg, 1, tablet, By Mouth, 2 times a day, # 60 tablet, Refills 3, Tot. Refills 3, Maintenance, 11/21/18 9:28:36 EDT, Route to Pharmacy Electronically, [id number], [facility]/pharmacy#[id number] Start Date: 11/21/18 Stop Date: 03/21/19 Status: [...] 5 Refills, Maintenance, 06/04/20 9:18:00 EST, Capsule, [facility], To replace 50 mg capsules, 170, cm, 04/01/20 14:07:00 EDT, Height, 83.1, kg, 03/27/20 18:25:00 EDT... Start Date: 06/04/20 Status: OrderedDulcolax 10 mg rectal suppository 1 supp = 10 mg, Rectally, Daily, PRN for constipation, # 10 supp, 0 Refills, Maintenance, 09/13/20 13:08:00 EDT, Suppository, [facility], Partial fill upon patient request if the prescription is for a schedule II opioid drug., 170, cm, 09/13/20 1... Start Date: 09/13/20 Status: OrderedFLUoxetine 20 mg oral capsule 40 mg, 2, capsule, By Mouth, Daily, 2 capsules to equal 40 mg daily., # 60 capsule, Refills 5, Tot. Refills 5, Maintenance, 03/08/20 10:37:00 EDT, Route to Pharmacy Electronically, [facility], 170, cm, 02/22/20 20:33:00 EDT, Height, [...] 4 Refills, Maintenance, 09/19/20 13:00:00 EDT, Capsule, [facility], 170, cm, 09/13/20 15:29:00 EDT, Height, 88.3, kg, 09/13/20 15:29:00 EDT, Dry Weight Start Date: 09/19/20 Status: Orderedloratadine 10 mg oral tablet 10 mg, 1, tablet, By Mouth, Daily, for 30 days, # 30 tablet, Refills 6, Tot. Refills 6, Hard Stop 10/23/20 10:07:00 EDT, 03/27/20 10:07:00 EDT, Route to Pharmacy Electronically, [facility], 170, cm, 02/22/20 20:33:00 EDT, Height, [...] 10/23/20 10:07:00 EDT, Route to Pharmacy Electronically, [facility], 170, cm, 09/02/20 15:24:00 EDT, Height,86.6, [...] Refills, Soft Stop, 03/21/20 14:01:00 EDT, Liquid, [facility], 300... Start Date: 03/21/20 Status: Orderedmagnesium citrate 8.85% oral liquid 150 mL = 8.725 Gm, By Mouth, Once, # 300 mL, 0 Refills, Soft Stop, 09/20/20 15:27:00 EDT, Liquid, [email or web address] #[id number], Partial fill upon patient request if the [...] Refills, Acute 08/03/23 11:00:00EST, 08/02/20 8:59:00 EST, [facility], 28, 1 patch Topically Daily,Instr:ROTATE APPLICATION [...] Exam Date Time Procedure Performing Provider Status 09/20/20 1:17 PM Abdomen AP Dalton Saavedra; Auth (Verified) Notes:(Abdomen AP) Reason For Exam: DistentionRESULT: XR Abdomen AP XR Abdomen AP INDICATION/CLINICAL QUESTION: Hx of Present Illness: hx of enlarged colon and constipation, seen last week for same, minimal results from Mag citrate and here for further eval; Reason: Distention; Clinical Question(s): Obstruction; Special Instructions: Flat / Obstruction. COMPARISON: 09/13/2020, 03/15/2020 FINDINGS: Moderate stool retention but otherwise normal bowel gas pattern. No evidence of obstruction. No evidence of pneumoperitoneum. No organomegaly, masses or calcifications. Clear lung bases and normal bones. IMPRESSION: Moderate stool retention but otherwise normal. I have personally reviewed the images and I agree with this report. WSN: [id number] Ordering Physician: Uli Infante Dictated By: Anival Dhaliwal DO Dictated Date/Time: 09/20/20 1:27 pm Reviewed By: Rere Cobos MD Signed By: Rere Cobos MD Signed Date/Time: 09/20/20 1:32 pm Transcribed By: LARISA Transcribed Date/Time: 09/20/20 1:22 pm Vital Signs Most recent to oldest [Reference Range]: 1 2 Height 170 cm 170 cm (09/20/20 3:57 PM) (09/20/20 11:30 AM) Weight 88.5 kg 88.5 kg (09/20/20 3:57 PM) (09/20/20 11:30 AM) Oxygen Saturation [94-100 %] 98 % 96 % (09/20/20 3:57 PM) (09/20/20 11:30 AM) Pulse Rate [55-90 bpm] 74 bpm 77 bpm (09/20/20 3:57 PM) (09/20/20 11:30 AM) Body Mass Index [18.5-24.99] 30.62 *>HHI* (09/20/20 3:57 PM) Blood Pressure [90-138/55-84 mm Hg] 125/96 mm Hg 114/ 77 mm Hg (09/20/20 3:57 PM) (09/20/20 11:30 AM) Respiratory Rate [16-30 br/min] 16 br/min 16 br/mi n (09/20/20 3:57 PM) (09/20/20 11:30 AM) Temperature [96.8-100.4 DegF] 97.8 DegF (09/20/20 11:30 AM) Mode of Delivery (Oxygen) Room air Room air (09/20/20 3:57 PM) (09/20/20 11:30 AM) Temperature Route Oral (09/20/20 11:30 AM) Dry Weight 88.5 kg 88.5 kg (09/20/20 3:57 PM) (09/20/20 11:30 AM) Weight Obtained Via Standing scale (09/20/20 11:30 AM) Social History Social History Type Response Smoking Status Former smoker, quit more padmini n 30 days ago entered on: 03/11/20 Sex
--- OUTSIDE RECORDS SUMMARY | 2022-06-26 21:16 | XMS_ITS | Continuity of Care Document ---
:1990 Author Organization [facility] Address [address] [place] [address]- Care Team Providers Name Role Phone Diego Iabrra Primary Care Physician Encounter [facility] Date(s): 08/29/20 - 09/28/[address] [address]- Allergies, Adverse Reactions, Alerts Substance Reaction Severity Status Risperdal Active Immunizations Given and Recorded Vaccine Date Status Refusal Reason influenza virus vaccine, inactivated1 07/03/19 Given 1Result Comment: [facility]# [id number] Medications benztropine 1 mg oral tablet 1 mg, 1, tablet, By Mouth, 2 times a day, # 60 tablet, Refills 3, Tot. Refills 3, Maintenance, 11/21/18 9:28:36 EDT, Route to Pharmacy Electronically, [id number], [facility]/pharmacy#[id number] Start Date: 11/21/18 Stop Date: 03/21/19 Status: [...] 5 Refills, Maintenance, 06/04/20 9:18:00 EST, Capsule, [facility], To replace 50 mg capsules, 170, cm, 04/01/20 14:07:00 EDT, Height, 83.1, kg, 03/27/20 18:25:00 EDT... Start Date: 06/04/20 Status: OrderedDulcolax 10 mg rectal suppository 1 supp = 10 mg, Rectally, Daily, PRN for constipation, # 10 supp, 0 Refills, Maintenance, 09/13/20 13:08:00 EDT, Suppository, [facility], Partial fill upon patient request if the prescription is for a schedule II opioid drug., 170, cm, 09/13/20 1... Start Date: 09/13/20 Status: OrderedFLUoxetine 20 mg oral capsule 40 mg, 2, capsule, By Mouth, Daily, 2 capsules to equal 40 mg daily., # 60 capsule, Refills 5, Tot. Refills 5, Maintenance, 03/08/20 10:37:00 EDT, Route to Pharmacy Electronically, [facility], 170, cm, 02/22/20 20:33:00 EDT, Height, [...] 09/19/20 13:00:00 EDT, Capsule, [facility], 170, cm, 09/13/20 15:29:00 EDT, Height, 88.3, kg, 09/13/20 15:29:00 EDT, Dry Weight Start Date: 09/19/20 Status: Orderedloratadine 10 mg oral tablet 10 mg, 1, tablet, By Mouth, Daily, for 30 days, # 30 tablet, Refills 6, Tot. Refills 6, Hard Stop 10/23/20 10:07:00 EDT, 03/27/20 10:07:00 EDT, Route to Pharmacy Electronically, [facility], 170, cm, 02/22/20 20:33:00 EDT, Height, [...] 10/23/20 10:07:00 EDT, Route to Pharmacy Electronically, [facility], 170, cm, 09/02/20 15:24:00 EDT, Height,86.6, [...] Refills, Soft Stop, 03/21/20 14:01:00 EDT, Liquid, [facility], 300... Start Date: 03/21/20 Status: Orderedmagnesium citrate 8.85% oral liquid 150 mL = 8.725 Gm, By Mouth, Once, # 300 mL, 0 Refills, Soft Stop, 09/20/20 15:27:00 EDT, Liquid, [facility] #[id number], Partial fill upon patient request if the [...] Refills, Acute 08/03/23 11:00:00EST, 08/02/20 8:59:00 EST, [facility], 28, 1 patch Topically Daily,Instr:ROTATE APPLICATION [...]
--- OUTSIDE RECORDS SUMMARY | 2022-06-26 21:16 | XMS_ITS | Continuity of Care Document ---
:1990 Author Organization [facility] Address [address] [place] [address]- Care Team Providers Name Role Phone Isma IZQUIERDO, Keturah Primary Care Physician [id number] Date(s): 07/03/21 - 09/05/21 [email or web address] [address] [id number]- Attending Physician: Not on Staff, Attending MD Allergies, Adverse Reactions, Alerts Substance Reaction Severity Status Risperdal unkown Active Immunizations Given and Recorded Vaccine Date Status Refusal Reason influenza virus vaccine, inactivated1 07/03/19 Given 1Result Comment: [facility]# [id number] Medications calcium carbonate 500 mg (200 mg [...] 0 Refills, Maintenance, 09/13/20 13:08:00 EDT, Suppository, [facility], Partial fill upon patient request if the prescription is for a schedule II opioid drug., 170, cm, 09/13/20 1... Start Date: 09/13/20 Status: OrderedFLUoxetine 20 mg oral capsule 40 mg, 2, capsule, By Mouth, Daily, 2 capsules to equal 40 mg daily., # 60 capsule, Refills 5, Tot. Refills 5, Maintenance, 03/08/20 10:37:00 EDT, Route to Pharmacy Electronically, [facility], 170, cm, 02/22/20 20:33:00 EDT, Height, 80.9, kg, ... Start Date: 03/08/20 Status: Orderedlidocaine 5% topical film 1 patch, Topically, Daily, PRN Pain , Mild, remove after 12 hours, # 30 patch, 3 Refills, Maintenance, 08/27/21 16:03:00 EDT, Film, [facility]- [address], Partial fill upon patient requestif the prescription is for a schedule II opioid d... Start Date: 08/27/21 Status: OrderedLinzess 145 mcg oral capsule 1 capsule = 145 mcg, By Mouth, Daily, # 90 capsule, 4 Refills, Maintenance, 03/26/21 16:53:00 EDT, Capsule, [facility], 168, cm, 03/04/21 13:36:00 EDT, Height, 83.3, kg, 10/24/20 17:15:00 EDT, DryWeight Start Date: 03/26/21 Status: Orderedloratadine 10 mg oral tablet See Instructions, TAKE 1 TABLET BY MOUTH DAILY IN THE MORNING, # 30 tablet, Refills 5, Instructions Replace Required Details, Route to Pharmacy Electronically, [facility], 168, cm, 07/21/21 12:32:00 EST, Height, [...] Refills, Soft Stop, 08/07/21 13:25:00 EST, Liquid, [facility], 17 grams By Mo... Start Date: [...] Gm, 2 Refills, Maintenance, 10/30/20 11:19:00 EDT, [facility], 30, MIX & DISSOLVE 17GM DOSE [...] 09/04/21 16:55:00 EDT, Route to Pharmacy Electronically, [facility], Partial f... Start Date: 09/04/21 Stop Date: 10/04/21 Status: Ordered Problem List Condition Effective Dates Status Health Status Informant Allergic rhinitis(Confirmed) Active Bipolar disorder(Confirmed) Active Chronic constipation(Confirmed) Active Developmental disability(Confirmed) Active Intermittent explosive disorder in Active adult(Confirmed) Chronic GERD(Confirmed) Active Injury of right shoulder(Confirmed) 08/15/20 Active Lives in alf(Confirmed) Active Obesity(Confirmed) Active Pain of right humerus(Confirmed) 08/15/20 Active Annual physical exam(Confirmed) Active Tobacco abuse(Confirmed) Active Umbilical hernia(Confirmed) Active Social History Social History Type Response Smoking Status Former smoker, quit more padmini n 30 days ago entered on: 03/11/20 Sex Medical Equipment Implanted Date:04/07/21 Target Site:[facility] Description Quantity MRI Company Model MESH VENTRALIGHT ECHO CIR 4.5 - BARD ([id number]) 1 Bard Unknown JENNIFER: No Information Assigning Authority: FDA
--- OUTSIDE RECORDS SUMMARY | 2022-06-26 21:17 | XMS_ITS | Continuity of Care Document ---
:1990 Author Organization [facility] Address Unavailable , Care Team Providers Name Role Phone Isma IZQUIERDO, Keturah Primary Care Physician Encounter [facility] Date(s): 04/23/21 - 05/30/21 [facility] Attending Physician: Lauro Gilbert MD Referring Physician: Keturah Ashby NP Allergies, Adverse Reactions, Alerts Substance Reaction Severity Status Risperdal unkown Active Immunizations Given and Recorded Vaccine Date Status Refusal Reason influenza virus vaccine, inactivated1 07/03/19 Given 1Result Comment: [facility]# [id number] Medications calcium carbonate 500 mg (200 mg [...] 03/08/20 10:37:00 EDT, Route to Pharmacy Electronically, [facility], 170, cm, 02/22/20 20:33:00 EDT, Height, [...] 4 Refills, Maintenance, 03/26/21 16:53:00 EDT, Capsule, [facility], 168, cm, 03/04/21 13:36:00 EDT, Height, 83.3, kg, 10/24/20 17:15:00 EDT, DryWeight Start Date: 03/26/21 Status: Orderedloratadine 10 mg oral tablet See Instructions, TAKE 1 TABLET BY MOUTH DAILY, # 30 tablet, Refills 5, Tot. Refills 5, Maintenance,03/14/21 11:21:00 EDT, Instructions Replace Required Details, Route to Pharmacy Electronically, [facility], 168, cm, 03/04/21 13:36:00 EDT, Frederic... Start Date: 03/14/21 Status: Orderedmagnesium citrate 8.85% oral liquid 300 mL = 17.45 Gm, By Mouth, Once, Use PRN after four days of no bowel movement. Repeat after 24 horus if no BM. Call PCP after 24 hours if no BM after second dose, # 300 mL, 5 Refills, Soft Stop, 12/13/20 15:34:00 EDT, Liquid, [facility], 300... Start Date: 12/13/20 Status: OrderedMelatonin [...] 15:39:00 EST, 12/11/20 15:39:00 EDT, REC Powder, [facility], Partial fill uponpatient request if the [...] of right shoulder(Confirmed) 08/15/20 Active Lives in fci(Confirmed) Active Obesity(Confirmed) Active Pain of right humerus(Confirmed) 08/15/20 Active Annual physical exam(Confirmed) Active Tobacco abuse(Confirmed) Active Umbilical hernia(Confirmed) Active Social History Social History Type Response Smoking Status Former smoker, quit more padmini n 30 days ago entered on: 03/11/20 Sex Medical Equipment Implanted Date:04/07/21 Target Site:[employer] Description Quantity MRI Company Model MESH VENTRALIGHT ECHO CIR 4.5 - BARD ([id number]) 1 Bard Unknown JENNIFER: No Information Assigning Authority: FDA
--- OUTSIDE RECORDS SUMMARY | 2022-06-26 21:17 | XMS_ITS | Continuity of Care Document ---
:1990 Author Organization [facility] Address [address] [place] [address]- Care Team Providers Name Role Phone Keturah Ashby NP Primary Care Physician Encounter [facility] Date(s): 02/04/22 - 03/15/22 [facility] [address] [id number]- Attending Physician: Keturah Ashby NP Allergies, Adverse Reactions, Alerts Substance Reaction Severity Status Risperdal unkown Active Immunizations Given and Recorded Vaccine Date Status Refusal Reason SARS-CoV-2 (COVID-19) mRNA-1273 vaccine 06/09/21 Recorded SARS-CoV-2 (COVID-19) mRNA-1273 vaccine 04/17/21 Recorded influenza virus vaccine, inactivated 04/17/21 Recorded influenza virus vaccine, inactivated1 07/03/19 Given 1Result Comment: [facility]# [id number] Medications Ativan 2 mg oral tablet 1 [...] 0 Refills, Maintenance, 02/03/22 15:20:00 EDT, Suppository, [facility]-99843, Partial fill upon patient request if the prescri... Start Date: 02/03/22 Status: OrderedFLUoxetine 20 mg oral capsule 40 mg, 2, capsule, By Mouth, Daily, 2 capsules to equal 40 mg daily., # 60 capsule, Refills 5, Tot. Refills 5, Maintenance, 03/08/20 10:37:00 EDT, Route to Pharmacy Electronically, [facility], 170, cm, 02/22/20 20:33:00 EDT, Height, 80.9, kg, ... Start Date: 03/08/20 Status: Orderedlidocaine 5% topical film 1 patch, Topically, Daily, PRN Pain , Mild, remove after 12 hours, # 30 patch, 3 Refills, Maintenance, 08/27/21 16:03:00 EDT, Film, [facility] [address], Partial fill upon patient requestif the prescription is for a schedule II opioid d... Start Date: 08/27/21 Status: OrderedLinzess 145 mcg oral capsule 1 capsule, By Mouth, Daily in AM, # 30 capsule, 0 Refills, [place] [id number], 168, cm, :41:00 EDT, Height, 85.8, kg, 04/07/21 14:21:00 EDT, Dry Weight Start Date: 01/08/22 Status: Orderedloratadine 10 mg oral tablet See Instructions, TAKE 1 TABLET BY MOUTH DAILY IN THE MORNING, # 30 tablet, Refills 5, Tot. Refills 5, 12/24/21 14:55:00 EDT, Instructions Replace Required Details, Route to Pharmacy Electronically, [facility]-[id number], 168, cm, ... Start Date: 12/24/21 Status: Orderedmagnesium citrate 8.85% oral liquid 17 grams, By Mouth, Once, Use PRN after four days of no bowel movement. Repeat after 24 hours if no BM. Call PCP after 24 hours if no BM after second dose, # 68 Gm, 5 Refills, Soft Stop, 08/07/21 13:25:00 EST, Liquid, [facility], 17 grams By Mo... Start Date: 08/07/21 Status: Orderedmagnesium citrate 8.85% oral liquid 17 grams, By Mouth, Once, Use PRN after four days of no bowel movement. Repeat after 24 hours if no BM. Call PCP after 24 hours if no BM after second dose, # 68 Gm, 1 Refills, Soft Stop, 02/04/22 15:33:00 EDT, Liquid, [facility]-00... Start Date: 02/04/22 Status: OrderedMelatonin [...] Refills, Maintenance, 12/05/21 16:01:00 EDT, EC Capsule, [facility]-12442, Partial fill upon patient request if the prescription isfor a schedule II opioid drug., 168, cm, 11/20/21... Start Date: 12/05/21 Status: OrderedPeri-Colace 50 mg-8.6 mg oral tablet 2 tablet, By Mouth, Daily at bedtime, for 30 days, # 60 tablet, 5 Refills, Acute 05/19/22 10:38:00 EST, 11/20/21 10:38:00 EDT, Tablet, [facility]-96561, Partial fill upon patient request if the prescription is for a schedule II opioi... Start Date: 11/20/21 Stop Date: 05/19/22 Status: Orderedpolyethylene glycol 3350 oral powder for reconstitution See Instructions, MIX & DISSOLVE 17GM DOSE IN 4 TO 8 OUNCES OF WATER, DRINK THE SOLUTION ONCE A DAY NEEDED FOR CONSTIPATION, # 510 Gm, 2 Refills, Maintenance, 02/04/22 15:24:00 EDT, [facility]-39058, 30, MIX & DISSOLVE 17GM DOSE I... [...] right Confirmed 08/15/20 Active shoulder Lives in alf Confirmed Active Obesity Confirmed Active Pain of [...] information PersonnelName: Keturah Ashby NP Address: Address: [address] [place] [address]
--- OUTSIDE RECORDS SUMMARY | 2022-06-26 21:17 | XMS_ITS | Continuity of Care Document ---
:1990 Author Organization [facility] Address Unavailable , Care Team Providers Name Role Phone Keturah Ashby NP Primary Care Physician Encounter [facility] Date(s): 05/06/21 - 05/13/21 [facility] Encounter Diagnosis Supraumbilical hernia (Discharge Diagnosis) - 05/07/21 Postop check (Discharge Diagnosis) - 05/07/21 Attending Physician: Nahun Molina Referring Physician: Keturah Ashby NP Allergies, Adverse Reactions, Alerts Substance Reaction Severity Status Risperdal unkown Active Immunizations Given and Recorded Vaccine Date Status Refusal Reason influenza virus vaccine, inactivated1 07/03/19 Given 1Result Comment: [facility]# [id number] Medications calcium carbonate 500 mg (200 mg [...] 03/08/20 10:37:00 EDT, Route to Pharmacy Electronically, [facility], 170, cm, 02/22/20 20:33:00 EDT, Height, [...] Replace Required Details, Route to Pharmacy Electronically, [facility], 168, cm, 03/04/21 13:36:00 EDT, Frederic... Start Date: 03/14/21 Status: Orderedmagnesium citrate 8.85% oral liquid 300 mL = 17.45 Gm, By Mouth, Once, Use PRN after four days of no bowel movement. Repeat after 24 horus if no BM. Call PCP after 24 hours if no BM after second dose, # 300 mL, 5 Refills, Soft Stop, 12/13/20 15:34:00 EDT, Liquid, [facility], 300... Start Date: 12/13/20 Status: OrderedMelatonin [...] 15:39:00 EST, 12/11/20 15:39:00 EDT, REC Powder, [facility], Partial fill uponpatient request if the [...] 12/11/20 15:40:00 EDT, Route to Pharmacy Electronically, [facility], Partial fill upon patient request if [...] Clinical Infor mant Status Service Supraumbilical Discharge 05/07/21 hernia Diagnosis Postop check Discharge 05/07/21 Diagnosis Social History Social History Type Response Smoking Status Former smoker, quit more padmini n 30 days ago entered on: 03/11/20 Sex Medical Equipment Implanted Date:04/07/21 Target Site:[employer] Description Quantity MRI Company Model MESH VENTRALIGHT ECHO CIR 4.5 - BARD ([id number]) 1 Bard Unknown JENNIFER: No Information Assigning Authority: FDA
--- OUTSIDE RECORDS SUMMARY | 2022-06-26 21:17 | XMS_ITS | Continuity of Care Document ---
:1990 Author Organization [facility] [employer] [facility] Address [address] [place] [address]- Care Team Providers Name Role Phone Isma IZQUIERDO, Keturah Primary Care Physician Encounter [facility] NBR [id number] Date(s): 09/09/21 - 10/09/21 [facility] [address] [place] [phone]- [place] Allergies, Adverse Reactions, Alerts Substance Reaction Severity Status Risperdal unkown Active Immunizations Given and Recorded Vaccine Date Status Refusal Reason influenza virus vaccine, inactivated1 07/03/19 Given 1Result Comment: [facility]# [id number] Medications calcium carbonate 500 mg (200 mg [...] 0 Refills, Maintenance, 09/13/20 13:08:00 EDT, Suppository, [facility], Partial fill upon patient request if the prescription is for a schedule II opioid drug., 170, cm, 09/13/20 1... Start Date: 09/13/20 Status: OrderedFLUoxetine 20 mg oral capsule 40 mg, 2, capsule, By Mouth, Daily, 2 capsules to equal 40 mg daily., # 60 capsule, Refills 5, Tot. Refills 5, Maintenance, 03/08/20 10:37:00 EDT, Route to Pharmacy Electronically, [facility], 170, cm, 02/22/20 20:33:00 EDT, Height, 80.9, kg, ... Start Date: 03/08/20 Status: Orderedlidocaine 5% topical film 1 patch, Topically, Daily, PRN Pain , Mild, remove after 12 hours, # 30 patch, 3 Refills, Maintenance, 08/27/21 16:03:00 EDT, Film, [facility], Partial fill upon patient requestif the prescription is for a schedule II opioid d... Start Date: 08/27/21 Status: OrderedLinzess 145 mcg oral capsule 1 capsule = 145 mcg, By Mouth, Daily, # 90 capsule, 4 Refills, Maintenance, 03/26/21 16:53:00 EDT, Capsule, [facility], 168, cm, 03/04/21 13:36:00 EDT, Height, 83.3, kg, 10/24/20 17:15:00 EDT, DryWeight Start Date: 03/26/21 Status: Orderedloratadine 10 mg oral tablet See Instructions, TAKE 1 TABLET BY MOUTH DAILY IN THE MORNING, # 30 tablet, Refills 5, Instructions Replace Required Details, Route to Pharmacy Electronically, [facility], 168, cm, 07/21/21 12:32:00 EST, Height, [...] Refills, Soft Stop, 08/07/21 13:25:00 EST, Liquid, [facility], 17 grams By Mo... Start Date: [...] Gm, 2 Refills, Maintenance, 10/30/20 11:19:00 EDT, [facility], 30, MIX & DISSOLVE 17GM DOSE [...] of right shoulder(Confirmed) 08/15/20 Active Lives in assisted(Confirmed) Active Obesity(Confirmed) Active Pain of right humerus(Confirmed) 08/15/20 Active Annual physical exam(Confirmed) Active Tobacco abuse(Confirmed) Active Umbilical hernia(Confirmed) Active Social History Social History Type Response Smoking Status Former smoker, quit more padmini n 30 days ago entered on: 03/11/20 Sex Medical Equipment Implanted Date:04/07/21 Target Site:[employer] Description Quantity MRI Company Model MESH VENTRALIGHT ECHO CIR 4.5 - BARD ([id number]) 1 Bard Unknown JENNIFER: No Information Assigning Authority: FDA
--- OUTSIDE RECORDS SUMMARY | 2022-06-26 21:17 | XMS_ITS | Continuity of Care Document ---
:1990 Author Organization [facility] Address [address] [place] [address]- Care Team Providers Name Role Phone Anthony IZQUIERDO, Jennie Bansal Primary Care Physician Encounter [facility] R [id number] Date(s): 09/27/19 - 10/27/19 [facility] [address] [place] [address] [facility] Attending Physician: Bel Galloway Admitting Physician: AdmtrBel Referring Physician: Admtr, ArDavid Allergies, Adverse Reactions, Alerts Substance Reaction Severity Status Risperdal Active Immunizations Given and Recorded Vaccine Date Status Refusal Reason influenza virus vaccine, inactivated1 07/03/19 Given 1Result Comment: [facility]# [id number] Medications benztropine 1 mg oral tablet 1 mg, 1, tablet, By Mouth, 2 times a day, # 60 tablet, Refills 3, Tot. Refills 3, Maintenance, 11/21/18 9:28:36 EDT, Route to Pharmacy Electronically, [id number], [facility]/pharmacy#[id number] Start Date: 11/21/18 Stop Date: [...] 11/21/18 9:26:51 EDT, Route to Pharmacy Electronically, [id number], [facility]/pharmacy #[id number] Start Date: 11/21/18 Status: OrderedLinzess 145 mcg oral capsule 1 capsule = 145 mcg, By Mouth, Daily, # 90 capsule, 4 Refills, Maintenance, 09/27/19 14:06:00 EDT, Capsule, [facility] #[id number], 169, cm, 07/03/19 16:03:00 EST, Height Start Date: 09/27/19 Status: Orderedloratadine 10 mg oral tablet 10 mg, 1, tablet, By Mouth, Daily, # 30 tablet, Refills 6, Tot. Refills 6, Maintenance, 08/30/19 10:07:00 EDT, Route to Pharmacy Electronically, [facility] #[id number], 169, cm, 07/03/19 16:03:00 EST, Height Start [...]
--- OUTSIDE RECORDS SUMMARY | 2022-06-26 21:17 | XMS_ITS | Continuity of Care Document ---
:1990 Author Organization [facility] Address [address] [place] [address]- Care Team Providers Name Role Phone Diego Ibarra Primary Care Physician Encounter [facility] Date(s): 08/20/20 - 08/27/20 [facility] [address] [place] [address] Attending Physician: Diego Ibarra Allergies, Adverse Reactions, Alerts Substance Reaction Severity Status Risperdal Active Immunizations Given and Recorded Vaccine Date Status Refusal Reason influenza virus vaccine, inactivated1 07/03/19 Given 1Result Comment: [facility]# [id number] Medications benztropine 1 mg oral tablet 1 mg, 1, tablet, By Mouth, 2 times a day, # 60 tablet, Refills 3, Tot. Refills 3, Maintenance, 11/21/18 9:28:36 EDT, Route to Pharmacy Electronically, [id number], [facility]/pharmacy#[id number] Start Date: 11/21/18 Stop Date: [...] 5 Refills, Maintenance, 06/04/20 9:18:00 EST, Capsule, [facility], To replace 50 mg capsules, 170, cm, 04/01/20 14:07:00 EDT, Height, 83.1, kg, 03/27/20 18:25:00 EDT... Start Date: 06/04/20 Status: OrderedFLUoxetine 20 mg oral capsule 40 mg, 2, capsule, By Mouth, Daily, 2 capsules to equal 40 mg daily., # 60 capsule, Refills 5, Tot. Refills 5, Maintenance, 03/08/20 10:37:00 EDT, Route to Pharmacy Electronically, [facility], 170, cm, 02/22/20 20:33:00 EDT, [...] 4 Refills, Maintenance, 09/27/19 14:06:00 EDT, Capsule, [facility] #[id number], 169, cm, 07/03/19 16:03:00 EST, Height Start Date: 09/27/19 Status: Orderedloratadine 10 mg oral tablet 10 mg, 1, tablet, By Mouth, Daily, # 30 tablet, Refills 6, Tot. Refills 6, Maintenance, 03/27/20 10:07:00 EDT, Route to Pharmacy Electronically, [facility], 170, cm, 02/22/20 20:33:00 EDT, Height,80.9, [...] Refills, Soft Stop, 03/21/20 14:01:00 EDT, Liquid, [facility], 300... Start Date: 03/21/20 Status: OrderedMelatonin [...] Refills, Acute 08/03/23 11:00:00EST, 08/02/20 8:59:00 EST, [facility], 28, 1 patch Topically Daily,Instr:ROTATE APPLICATION [...] oldest [Reference Range]: 1 Height 170 cm (08/20/20 8:15 AM) Social History Social History Type Response Smoking Status Former smoker, quit more padmini n 30 days ago entered on: 03/11/20 Sex
--- OUTSIDE RECORDS SUMMARY | 2022-06-26 21:17 | XMS_ITS | Continuity of Care Document ---
:1990 Author Organization [facility] Address [address] [place] [address]- Care Team Providers Name Role Phone Isma IZQUIERDO, Keturah Primary Care Physician Encounter [facility] NBR [id number] Date(s): 09/25/21 - 10/25/21 [facility] [address] [place] [id number]- [place] Allergies, Adverse Reactions, Alerts Substance Reaction Severity Status Risperdal unkown Active Immunizations Given and Recorded Vaccine Date Status Refusal Reason influenza virus vaccine, inactivated1 07/03/19 Given 1Result Comment: [facility]# [id number] Medications calcium carbonate 500 mg (200 mg [...] 0 Refills, Maintenance, 09/13/20 13:08:00 EDT, Suppository, [facility], Partial fill upon patient request if the prescription is for a schedule II opioid drug., 170, cm, 09/13/20 1... Start Date: 09/13/20 Status: OrderedFLUoxetine 20 mg oral capsule 40 mg, 2, capsule, By Mouth, Daily, 2 capsules to equal 40 mg daily., # 60 capsule, Refills 5, Tot. Refills 5, Maintenance, 03/08/20 10:37:00 EDT, Route to Pharmacy Electronically, [facility], 170, cm, 02/22/20 20:33:00 EDT, Height, 80.9, kg, ... Start Date: 03/08/20 Status: Orderedlidocaine 5% topical film 1 patch, Topically, Daily, PRN Pain , Mild, remove after 12 hours, # 30 patch, 3 Refills, Maintenance, 08/27/21 16:03:00 EDT, Film, [facility]- [address], Partial fill upon patient requestif the prescription is for a schedule II opioid d... Start Date: 08/27/21 Status: OrderedLinzess 145 mcg oral capsule 1 capsule = 145 mcg, By Mouth, Daily, # 90 capsule, 4 Refills, Maintenance, 03/26/21 16:53:00 EDT, Capsule, [facility], 168, cm, 03/04/21 13:36:00 EDT, Height, 83.3, kg, 10/24/20 17:15:00 EDT, DryWeight Start Date: 03/26/21 Status: Orderedloratadine 10 mg oral tablet See Instructions, TAKE 1 TABLET BY MOUTH DAILY IN THE MORNING, # 30 tablet, Refills 5, Instructions Replace Required Details, Route to Pharmacy Electronically, [facility], 168, cm, 07/21/21 12:32:00 EST, Height, [...] Refills, Soft Stop, 08/07/21 13:25:00 EST, Liquid, [facility], 17 grams By Mo... Start Date: [...] Gm, 2 Refills, Maintenance, 10/30/20 11:19:00 EDT, [facility], 30, MIX & DISSOLVE 17GM DOSE [...] MESH VENTRALIGHT ECHO CIR 4.5 - BARD ([id number]) 1 Bard Unknown JENNIFER: No Information Assigning Authority: FDA
--- OUTSIDE RECORDS SUMMARY | 2022-06-26 21:17 | XMS_ITS | Continuity of Care Document ---
:1990 Author Organization [facility] Address [address] [place] [address]- Care Team Providers Name Role Phone Diego Ibarra Primary Care Physician Encounter [facility] Date(s): 03/11/20 - 03/11/[address] [address] [facility] Discharge Disposition: A-D/C Home Attending Physician: Eloise Ivan MD Admitting Physician: Eloise Ivan MD Referring Physician: Not on Staff, Referring MD Allergies, Adverse Reactions, Alerts Substance Reaction Severity Status Risperdal Active Immunizations Given and Recorded Vaccine Date Status Refusal Reason influenza virus vaccine, inactivated1 07/03/19 Given 1Result Comment: [facility]# [id number] Medications benztropine 1 mg oral tablet 1 mg, 1, tablet, By Mouth, 2 times a day, # 60 tablet, Refills 3, Tot. Refills 3, Maintenance, 11/21/18 9:28:36 EDT, Route to Pharmacy Electronically, [id number], [facility]/pharmacy#[id number] Start Date: 11/21/18 Stop Date: [...] 2 Refills, Maintenance, 03/08/20 14:59:00 EDT, Capsule, [facility], To replace 50 mg capsules, 170, cm, 02/22/20 20:33:00 EDT, Height, 80.9, kg, 02/29/20 19:49:00 ED... Start Date: 03/08/20 Status: OrderedFLUoxetine 20 mg oral capsule 40 mg, 2, capsule, By Mouth, Daily, 2 capsules to equal 40 mg daily., # 60 capsule, Refills 5, Tot. Refills 5, Maintenance, 03/08/20 10:37:00 EDT, Route to Pharmacy Electronically, [facility], 170, cm, 02/22/20 20:33:00 EDT, Height, [...] 4 Refills, Maintenance, 09/27/19 14:06:00 EDT, Capsule, [facility] #[id number], 169, cm, 07/03/19 16:03:00 EST, Height Start Date: 09/27/19 Status: Orderedloratadine 10 mg oral tablet 10 mg, 1, tablet, By Mouth, Daily, # 30 tablet, Refills 6, Tot. Refills 6, Maintenance, 03/27/20 10:07:00 EDT, Route to Pharmacy Electronically, [facility], 170, cm, 02/22/20 20:33:00 EDT, Height,80.9, [...] Refills 6, Tot. Refills 6, Hard Stop 03/27/20 10:07:00 EDT, 08/30/19 10:07:00 EDT, Route to Pharmacy Electronically, [facility] #[id number], 169, cm, 07/03/19 16:03:00 EST, Height Start [...] 11:01:00 EST, 02/02/20 11:01:00 EDT, REC Powder, [facility], 17 Gm By Mouth Daily,x30 days,Instr:dissolve [...] [Reference Range]: 1 2 Height 170 cm (03/11/20 11:15 AM) Weight 64 kg (03/11/20 11:15 AM) Oxygen Saturation [94-100 %] 99 % (03/11/20 11:15 AM) Pulse Rate [55-90 bpm] 92 bpm *H* (03/11/20 11:15 AM) Blood Pressure [90-138/55-84 mm Hg] 103/80 mm Hg (03/11/20 11:15 AM) Respiratory Rate [16-30 br/min] 15 br/min 18 br/mi n *L* (03/11/20 11:15 AM) (03/11/20 1:04 PM) Temperature [96.8-100.4 DegF] 98.8 DegF (03/11/20 11:15 AM) Mode of Delivery (Oxygen) Room air (03/11/20 11:15 AM) Blood pressure sites Arm, left (03/11/20 11:15 AM) Temperature Route Temporal (03/11/20 11:15 AM) Dry Weight 64 kg (03/11/20 11:15 AM) Weight Obtained Via Patient/family stated (03/11/20 11:15 AM) Dry Weight Obtained Via Patient/family stated (03/11/20 11:15 AM) Social History Social History Type Response Smoking Status Former smoker, quit more padmini n 30 days ago entered on: 03/11/20 Sex
--- OUTSIDE RECORDS SUMMARY | 2022-06-26 21:17 | XMS_ITS | Continuity of Care Document ---
:1990 Author Organization [facility] Address [address] [place] [address]- Care Team Providers Name Role Phone Isma IZQUIERDO, Keturah Primary Care Physician Encounter [facility] NBR [id number] Date(s): 12/24/20 - 01/23/21 [facility] Adult [facility] [address] [place] [address]- Allergies, Adverse Reactions, Alerts Substance Reaction Severity Status Risperdal Active Immunizations Given and Recorded Vaccine Date Status Refusal Reason influenza virus vaccine, inactivated1 07/03/19 Given 1Result Comment: [facility]# [id number] Medications benztropine 1 mg oral tablet 1 mg, 1, tablet, By Mouth, 2 times a day, # 60 tablet, Refills 3, Tot. Refills 3, Maintenance, 11/21/18 9:28:36 EDT, Route to Pharmacy Electronically, [id number], [facility]/pharmacy#[id number] Start Date: 11/21/18 Stop Date: 03/21/19 [...] 4 Refills, Maintenance, 09/19/20 13:00:00 EDT, Capsule, [facility]74131, 170, cm, 09/13/20 15:29:00 EDT, Height, 88.3, [...] 10/23/20 10:07:00 EDT, Route to Pharmacy Electronically, [facility], 170, cm, 09/02/20 15:24:00 EDT, Height,86.6, [...] Refills, Soft Stop, 12/13/20 15:34:00 EDT, Liquid, [facility], 300... Start Date: 12/13/20 Status: OrderedMelatonin [...] 15:39:00 EST, 12/11/20 15:39:00 EDT, REC Powder, [facility], Partial fill uponpatient request if the [...] Gm, 2 Refills, Maintenance, 10/30/20 11:19:00 EDT, [facility], 30, MIX & DISSOLVE 17GM DOSE [...] 12/11/20 15:40:00 EDT, Route to Pharmacy Electronically, [facility], Partial fill upon patient request if [...]
--- OUTSIDE RECORDS SUMMARY | 2022-06-26 21:17 | XMS_ITS | Continuity of Care Document ---
:1990 Author Organization [facility] [facility] Address [address] [place] [address]- Care Team Providers Name Role Phone Isma IZQUIERDO, Keturah Primary Care Physician Encounter [facility] NBR [id number] Date(s): 02/28/21 - 03/30/21 [facility] [address] [place] [address]- Allergies, Adverse Reactions, Alerts Substance Reaction Severity Status Risperdal Active Immunizations Given and Recorded Vaccine Date Status Refusal Reason influenza virus vaccine, inactivated1 07/03/19 Given 1Result Comment: [facility]# [id number] Medications benztropine 1 mg oral tablet 1 mg, 1, tablet, By Mouth, 2 times a day, # 60 tablet, Refills 3, Tot. Refills 3, Maintenance, 11/21/18 9:28:36 EDT, Route to Pharmacy Electronically, [id number], [facility]/pharmacy#[id number] Start Date: 11/21/18 [...] 03/08/20 10:37:00 EDT, Route to Pharmacy Electronically, [facility], 170, cm, 02/22/20 20:33:00 EDT, Height, [...] 4 Refills, Maintenance, 03/26/21 16:53:00 EDT, Capsule, [facility], 168, cm, 03/04/21 13:36:00 EDT, Height, [...] Replace Required Details, Route to Pharmacy Electronically, [facility], 168, cm, 03/04/21 13:36:00 EDT, Frederic... Start Date: 03/14/21 Status: Orderedmagnesium citrate 8.85% oral liquid 300 mL = 17.45 Gm, By Mouth, Once, Use PRN after four days of no bowel movement. Repeat after 24 horus if no BM. Call PCP after 24 hours if no BM after second dose, # 300 mL, 5 Refills, Soft Stop, 12/13/20 15:34:00 EDT, Liquid, [facility], 300... Start Date: 12/13/20 Status: OrderedMelatonin [...] 15:39:00 EST, 12/11/20 15:39:00 EDT, REC Powder, [facility], Partial fill uponpatient request if the [...] Gm, 2 Refills, Maintenance, 10/30/20 11:19:00 EDT, [facility], 30, MIX & DISSOLVE 17GM DOSE [...] of right shoulder(Confirmed) 08/15/20 Active Lives in intermediate(Confirmed) Active Obesity(Confirmed) Active Pain of right humerus(Confirmed) 08/15/20 Active Annual physical exam(Confirmed) Active Tobacco abuse(Confirmed) Active Umbilical hernia(Confirmed) Active Social History Social History Type Response Smoking Status Former smoker, quit more padmini n 30 days ago entered on: 03/11/20 Sex
--- OUTSIDE RECORDS SUMMARY | 2022-06-26 21:17 | XMS_ITS | Continuity of Care Document ---
:1990 Author Organization [facility] [employer] Adult [facility] Address [address] [place] [address]- Care Team Providers Name Role Phone Keturah Ashby NP Primary Care Physician Encounter [facility] NBR [id number] Date(s): 09/09/21 - 10/16/21 [facility] [email or web address] Adult Medicine [address] [place] [id number]- Attending Physician: Not on Staff, Attending MD Referring Physician: Keturah Ashby NP Allergies, Adverse Reactions, Alerts Substance Reaction Severity Status Risperdal unkown Active Immunizations Given and Recorded Vaccine Date Status Refusal Reason influenza virus vaccine, inactivated1 07/03/19 Given 1Result Comment: [facility]# [id number] Medications calcium carbonate 500 mg (200 mg [...] 0 Refills, Maintenance, 09/13/20 13:08:00 EDT, Suppository, [facility], Partial fill upon patient request if the prescription is for a schedule II opioid drug., 170, cm, 09/13/20 1... Start Date: 09/13/20 Status: OrderedFLUoxetine 20 mg oral capsule 40 mg, 2, capsule, By Mouth, Daily, 2 capsules to equal 40 mg daily., # 60 capsule, Refills 5, Tot. Refills 5, Maintenance, 03/08/20 10:37:00 EDT, Route to Pharmacy Electronically, [facility], 170, cm, 02/22/20 20:33:00 EDT, Height, 80.9, kg, ... Start Date: 03/08/20 Status: Orderedlidocaine 5% topical film 1 patch, Topically, Daily, PRN Pain , Mild, remove after 12 hours, # 30 patch, 3 Refills, Maintenance, 08/27/21 16:03:00 EDT, Film, [facility]- [address], Partial fill upon patient requestif the prescription is for a schedule II opioid d... Start Date: 08/27/21 Status: OrderedLinzess 145 mcg oral capsule 1 capsule = 145 mcg, By Mouth, Daily, # 90 capsule, 4 Refills, Maintenance, 03/26/21 16:53:00 EDT, Capsule, [facility], 168, cm, 03/04/21 13:36:00 EDT, Height, 83.3, kg, 10/24/20 17:15:00 EDT, DryWeight Start Date: 03/26/21 Status: Orderedloratadine 10 mg oral tablet See Instructions, TAKE 1 TABLET BY MOUTH DAILY IN THE MORNING, # 30 tablet, Refills 5, Instructions Replace Required Details, Route to Pharmacy Electronically, [facility], 168, cm, 07/21/21 12:32:00 EST, Height, [...] Refills, Soft Stop, 08/07/21 13:25:00 EST, Liquid, [facility], 17 grams By Mo... Start Date: [...] Gm, 2 Refills, Maintenance, 10/30/20 11:19:00 EDT, [facility], 30, MIX & DISSOLVE 17GM DOSE [...] MESH VENTRALIGHT ECHO CIR 4.5 - BARD ([id number]) 1 Bard Unknown JENNIFER: No Information Assigning Authority: FDA
--- OUTSIDE RECORDS SUMMARY | 2022-06-26 21:17 | XMS_ITS | Continuity of Care Document ---
:1990 Author Organization [facility] [employer] Adult Medicine Address [address] [place] [address]- Care Team Providers Name Role Phone Isma IZQUIERDO, Keturah Primary Care Physician Encounter [facility] NBR [id number] Date(s): 12/11/20 - 12/18/20 [facility] [employer] Adult Medicine [address], [place] [address] Encounter Diagnosis Chronic constipation (Discharge Diagnosis) - 12/11/20 Umbilical hernia (Discharge Diagnosis) - 12/11/20 Attending Physician: Keturah Ashby NP Referring Physician: Keturah Ashby NP Allergies, Adverse Reactions, Alerts Substance Reaction Severity Status Risperdal Active Immunizations Given and Recorded Vaccine Date Status Refusal Reason influenza virus vaccine, inactivated1 07/03/19 Given 1Result Comment: [facility]# [id number] Medications benztropine 1 mg oral tablet 1 mg, 1, tablet, By Mouth, 2 times a day, # 60 tablet, Refills 3, Tot. Refills 3, Maintenance, 11/21/18 9:28:36 EDT, Route to Pharmacy Electronically, [id number], [facility]/pharmacy#[id number] Start Date: 11/21/18 Stop Date: 03/21/19 Status: [...] 5 Refills, Maintenance, 10/30/20 11:18:00 EDT, Capsule, [facility], To replace 50 mg capsules, 168, cm, 10/30/20 11:05:00 EDT, Height, 83.3, kg, 10/24/20 17:15:00 ED... Start Date: 10/30/20 Status: OrderedDulcolax 10 mg rectal suppository 1 supp = 10 mg, Rectally, Daily, PRN for constipation, # 10 supp, 0 Refills, Maintenance, 09/13/20 13:08:00 EDT, Suppository, [facility], Partial fill upon patient request if the prescription is for a schedule II opioid drug., 170, cm, 09/13/20 1... Start Date: 09/13/20 Status: OrderedFLUoxetine 20 mg oral capsule 40 mg, 2, capsule, By Mouth, Daily, 2 capsules to equal 40 mg daily., # 60 capsule, Refills 5, Tot. Refills 5, Maintenance, 03/08/20 10:37:00 EDT, Route to Pharmacy Electronically, [facility], 170, cm, 02/22/20 20:33:00 EDT, Height, [...] 4 Refills, Maintenance, 09/19/20 13:00:00 EDT, Capsule, [facility]121, 170, cm, 09/13/20 15:29:00 EDT, Height, 88.3, [...] 10/23/20 10:07:00 EDT, Route to Pharmacy Electronically, [facility], 170, cm, 09/02/20 15:24:00 EDT, Height,86.6, [...] Refills, Soft Stop, 12/13/20 15:34:00 EDT, Liquid, [facility], 300... Start Date: 12/13/20 Status: OrderedMelatonin [...] 15:39:00 EST, 12/11/20 15:39:00 EDT, REC Powder, [facility], Partial fill uponpatient request if the [...] Gm, 2 Refills, Maintenance, 10/30/20 11:19:00 EDT, [facility], 30, MIX & DISSOLVE 17GM DOSE [...] 12/11/20 15:40:00 EDT, Route to Pharmacy Electronically, [facility], Partial fill upon patient request if [...] Diagnosis Type Effective Dates Health Clinical Infor [facility] Status Service Chronic Discharge 12/11/20 constipation Diagnosis Umbilical hernia Discharge 12/11/20 Diagnosis Vital Signs Most recent to oldest [Reference Range]: 1 Height 168 cm (12/11/20 2:56 PM) Weight 87.0 kg (12/11/20 2:56 PM) Oxygen Saturation [94-100 %] 98 % (12/11/20 2:56 PM) Pulse Rate [55-90 bpm] 70 bpm (12/11/20 2:56 PM) Body Mass Index [18.5-24.99] 30.82 *>HHI* (12/11/20 2:56 PM) Blood Pressure [90-138/55-84 mm Hg] 116/66 mm Hg (12/11/20 2:56 PM) Respiratory Rate [16-30 br/min] 17 br/min (12/11/20 2:56 PM) Temperature [96.8-100.4 DegF] 98.4 DegF (12/11/20 2:56 PM) Liters per Minute 0 L/min (12/11/20 2:56 PM) Mode of Delivery (Oxygen) Room air (12/11/20 2:56 PM) Blood pressure sites Arm, left (12/11/20 2:56 PM) Temperature Route Temporal (12/11/20 2:56 PM) Weight Obtained Via Standing scale (12/11/20 2:56 PM) Social History Social History Type Response Smoking Status Former smoker, quit more padmini n 30 days ago entered on: 03/11/20 Sex
--- OUTSIDE RECORDS SUMMARY | 2022-06-26 21:17 | XMS_ITS | Continuity of Care Document ---
:1990 [facility] Address [address] [place] [address]- Care Team Providers Name Role Phone Isma IZQUIERDO, Keturah Primary Care Physician Encounter [facility] NBR [id number] Date(s): 04/29/22 - 05/29/22 [facility] Adult Medicine [address] [place] [address]- Attending Physician: Bel Galloway Admitting Physician: AdmtrBel Referring Physician: Admtr, Ar8 Allergies, Adverse Reactions, Alerts Substance Reaction Severity Status Risperdal unkown Active Immunizations Given and Recorded Vaccine Date Status Refusal Reason SARS-CoV-2 (COVID-19) mRNA-1273 vaccine 06/09/21 Recorded SARS-CoV-2 (COVID-19) mRNA-1273 vaccine 04/17/21 Recorded influenza virus vaccine, inactivated 04/17/21 Recorded influenza virus vaccine, inactivated1 07/03/19 Given 1Result Comment: [facility]# [id number] Medications calcium carbonate 500 mg (200 mg [...] tablet, 3 Refills, Maintenance, 04/15/22 16:25:00 EST, [facility], 28, TAKE 2 TABLETS BY MOUTH DAILY AT BEDTIME, 173, cm, 04/02/22 12:51:00 EDT, Height, 85.8, kg, 04/07/21 14:21:00 EDT, Dry Weight Start Date: 04/15/22 Status: OrderedDulcolax 10 mg rectal suppository 1 supp = 10 mg, Rectally, Daily, PRN for constipation, 1 supp daily as needed for constipation, # 10supp, 0 Refills, Maintenance, 02/03/22 15:20:00 EDT, Suppository, [facility], Partial fill upon patient request if the prescri... Start Date: 02/03/22 Status: OrderedFish Oil 1000 mg oral capsule 1 capsule = 1,000 mg, By Mouth, 2 times a day, may keep in fridge or freezer, # 60 capsule, 5 Refills, Maintenance, 05/05/22 16:21:00 EST, Capsule, [facility]-09[facility], Partial fill uponpatient request if the prescription [...] in AM, # 30 capsule, 0 Refills, [facility]R 87526, 168, cm, 228:41:00 EDT, Height, 85.8, kg, 04/07/21 14:21:00 EDT, Dry Weight Start Date: 01/08/22 Status: Orderedloratadine 10 mg oral tablet See Instructions, TAKE 1 TABLET BY MOUTH DAILY IN THE MORNING, # 30 tablet, Refills 5, Tot. Refills 5, 12/24/21 14:55:00 EDT, Instructions Replace Required Details, Route to Pharmacy Electronically, [facility]-50208, 168, cm, ... Start Date: 12/24/21 Status: [...] capsule, 2 Refills, Maintenance, 05/14/22 10:42:00 EST, [facility] [address], 173, cm, 04/29/22 8:45:00 EST, Height, 85.8, [...] 0 Refills, Maintenance, 04/02/22 13:48:00 EDT, Gel, [facility]-53736, Partial fill upon patient request if the [...] right Confirmed 08/15/20 Active shoulder Lives in fpc Confirmed Active Obese class I Confirmed Active [...] Unknown 01/01/23 Unknown Unknown Active Unknown Note Event Display: Laboratory Result Scanned Authored Date: Event Display: Laboratory Result Scanned Authored Date: Event Display: Laboratory Result Scanned Authored Date: Event Display: IR Special Procedures Authored Date: Event Display: Cardiovascular Result Scanned Authored Date: Event Display: IR Special Procedures Authored Date: XR Spine Views Event Display: X-Ray Spine Authored Date: Event Display: X-Ray Spine Authored Date: Event Display: X-Ray Spine Authored Date: US Abdomen Event Display: Ultrasound Abdomen Authored Date: Event Display: Ultrasound Abdomen Authored Date: Patient Care team information Care Team PersonnelName: Keturah Ashby NP Position: [facility] PCO Associate Professional Member Role: PCP Address: Address: [address] [place] [address]- Care Team Related PersonsName: HIRAL EGAN Address: [place] [address] Name: DENISHA EGAN Address: [place] [address] Name: ELLA MUNGUIA Address: home [address] [place] [address] Name: HIEN ANGELES Address: home [place]KNOWN
--- OUTSIDE RECORDS SUMMARY | 2022-06-26 21:17 | XMS_ITS | Continuity of Care Document ---
:1990 Author Organization [facility] Adult [facility] Address [address] [place] [address]- Care Team Providers Name Role Phone Anthony VEHICLE FARE COLLECTOR, Jennie Bansal Primary Care Physician Encounter [facility] NBR [id number] Date(s): 07/03/19 - 07/10/19 [facility] [address] [place] [address]- Attending Physician: Rere Suarez MD Allergies, Adverse Reactions, Alerts Substance Reaction Severity Status Risperdal Active Immunizations Given and Recorded Vaccine Date Status Refusal Reason influenza virus vaccine, inactivated1 07/03/19 Given 1Result Comment: [facility]# [id number] Medications benztropine 1 mg oral tablet 1 mg, 1, tablet, By Mouth, 2 times a day, # 60 tablet, Refills 3, Tot. Refills 3, Maintenance, 11/21/18 9:28:36 EDT, Route to Pharmacy Electronically, [id number], [facility]/pharmacy#[id number] Start Date: 11/21/18 Stop Date: 03/21/19 [...] 11/21/18 9:26:51 EDT, Route to Pharmacy Electronically, [id number], [facility]/pharmacy #[id number] Start Date: 11/21/18 Status: Orderedloratadine 10 mg oral tablet 10 mg, 1, tablet, By Mouth, Daily, # 30 tablet, Refills 6, Tot. Refills 6, Maintenance, 12/26/18 11:49:33 EDT, Route to Pharmacy Electronically, [facility]- [id number], [facility] Start Date: 12/26/18 Stop Date: 07/24/19 Status: OrderedMelatonin 5 mg oral tablet 1 [...] recent to oldest [Reference Range]: 1 Height 169.0 cm (07/03/19 4:03 PM) Weight 68.7 kg (07/03/19 4:03 PM) Oxygen Saturation [94-100 %] 98 % (07/03/19 4:03 PM) Pulse Rate [55-90 bpm] 106 bpm *H* (07/03/19 4:03 PM) Body Mass Index [18.5-24.99] 24.05 (07/03/19 4:03 PM) Blood Pressure [90-138/55-84 mm Hg] 110/70 mm Hg (07/03/19 4:03 PM) Temperature [96.8-100.4 DegF] 98.9 DegF (07/03/19 4:03 PM) Blood pressure sites Arm, left (07/03/19 4:03 PM) Temperature Route Temporal (07/03/19 4:03 PM) Weight Obtained Via Standing scale (07/03/19 4:03 PM) Social History Social History Type Response Smoking Status Former smoker, quit more padmini n 30 days ago; Tobacco user in household: No; Type: Cigarettes; Previous treatment: None; Interested in cessation: No entered on: 06/21/18 Sex
--- OUTSIDE RECORDS SUMMARY | 2022-06-26 21:17 | XMS_ITS | Continuity of Care Document ---
:1990 Author Organization [facility] Adult [facility] Address [address] [place] [address]- Care Team Providers Name Role Phone Keturah Ashby NP Primary Care Physician Encounter [facility] Date(s): 02/04/22 - 02/11/22 [facility] [address] [place] [address]- Encounter Diagnosis Chronic constipation (Discharge Diagnosis) - 12/23/21 Attending Physician: Diego Islas Referring Physician: Keturah Ashby NP Allergies, Adverse Reactions, Alerts Substance Reaction Severity Status Risperdal unkown Active Immunizations Given and Recorded Vaccine Date Status Refusal Reason SARS-CoV-2 (COVID-19) mRNA-1273 vaccine 06/09/21 Recorded SARS-CoV-2 (COVID-19) mRNA-1273 vaccine 04/17/21 Recorded influenza virus vaccine, inactivated 04/17/21 Recorded influenza virus vaccine, inactivated1 07/03/19 Given 1Result Comment: [facility]# [id number] Medications Ativan 2 mg oral tablet 1 [...] 0 Refills, Maintenance, 02/03/22 15:20:00 EDT, Suppository, [facility]-[address], Partial fill upon patient request if the prescri... Start Date: 02/03/22 Status: OrderedFLUoxetine 20 mg oral capsule 40 mg, 2, capsule, By Mouth, Daily, 2 capsules to equal 40 mg daily., # 60 capsule, Refills 5, Tot. Refills 5, Maintenance, 03/08/20 10:37:00 EDT, Route to Pharmacy Electronically, [facility], 170, cm, 02/22/20 20:33:00 EDT, Height, 80.9, kg, .. Start Date: 03/08/20 Status: Orderedlidocaine 5% topical film 1 patch, Topically, Daily, PRN Pain , Mild, remove after 12 hours, # 30 patch, 3 Refills, Maintenance, 08/27/21 16:03:00 EDT, [facility] [address], Partial fill upon patient requestif the prescription is for a schedule II opioid d... Start Date: 08/27/21 Status: OrderedLinzess 145 mcg oral capsule 1 capsule, By Mouth, Daily in AM, # 30 capsule, 0 Refills, [id number], 168, cm, 228:41:00 EDT, Height, 85.8, kg, 04/07/21 14:21:00 EDT, Dry Weight Start Date: 01/08/22 Status: Orderedloratadine 10 mg oral tablet See Instructions, TAKE 1 TABLET BY MOUTH DAILY IN THE MORNING, # 30 tablet, Refills 5, Tot. Refills 5, 12/24/21 14:55:00 EDT, Instructions Replace Required Details, Route to Pharmacy Electronically, [facility]-[address], 168, cm, ... Start Date: 12/24/21 Status: Orderedmagnesium citrate 8.85% oral liquid 17 grams, By Mouth, Once, Use PRN after four days of no bowel movement. Repeat after 24 hours if no BM. Call PCP after 24 hours if no BM after second dose, # 68 Gm, 5 Refills, Soft Stop, 08/07/21 13:25:00 EST, Liquid, [facility], 17 grams By Mo... Start Date: 08/07/21 Status: Orderedmagnesium citrate 8.85% oral liquid 17 grams, By Mouth, Once, Use PRN after four days of no bowel movement. Repeat after 24 hours if no BM. Call PCP after 24 hours if no BM after second dose, # 68 Gm, 1 Refills, Soft Stop, 02/04/22 15:33:00 EDT, Liquid, [facility]-00... Start Date: 02/04/22 Status: OrderedMelatonin 5 mg [...] Refills, Maintenance, 12/05/21 16:01:00 EDT, EC Capsule, [facility]-13031, Partial fill upon patient request if the prescription isfor a schedule II opioid drug., 168, cm, 11/20/21... Start Date: 12/05/21 Status: OrderedPeri-Colace 50 mg-8.6 mg oral tablet 2 tablet, By Mouth, Daily at bedtime, for 30 days, # 60 tablet, 5 Refills, Acute 05/19/22 10:38:00 EST, 11/20/21 10:38:00 EDT, Tablet, [facility]-30323, Partial fill upon patient request if the prescription is for a schedule II opioi... Start Date: 11/20/21 Stop Date: 05/19/22 Status: Orderedpolyethylene glycol 3350 oral powder for reconstitution See Instructions, MIX & DISSOLVE 17GM DOSE IN 4 TO 8 OUNCES OF WATER, DRINK THE SOLUTION ONCE A DAY NEEDED FOR CONSTIPATION, # 510 Gm, 2 Refills, Maintenance, 02/04/22 15:24:00 EDT, [facility]-78383, 30, MIX & DISSOLVE 17GM DOSE I... [...] of right shoulder(Confirmed) 08/15/20 Active Lives in long-term(Confirmed) Active Obesity(Confirmed) Active Pain of right humerus(Confirmed) 08/15/20 Active Annual physical exam(Confirmed) Active Tobacco abuse(Confirmed) Active Umbilical hernia(Confirmed) Active Diagnosis Diagnosis Type Effective Dates Health Clinical Infor [facility] Status Service Chronic Discharge 12/23/21 constipation Diagnosis Vital Signs Most recent to oldest [Reference Range]: 1 Height 168 cm (02/04/22 2:54 PM) Weight 82.3 kg (02/04/22 2:54 PM) Oxygen Saturation [94-100 %] 98 % (02/04/22 2:54 PM) Pulse Rate [55-90 bpm] 97 bpm *H* (02/04/22 2:54 PM) Body Mass Index [18.5-24.99] 29.16 *H* (02/04/22 2:54 PM) Blood Pressure [90-138/55-84 mm Hg] 118/72 mm Hg (02/04/22 2:54 PM) Liters per Minute 0 L/min (02/04/22 2:54 PM) Mode of Delivery (Oxygen) Room air (02/04/22 2:54 PM) Blood pressure sites Arm, left (02/04/22 2:54 PM) Temperature Route Temporal (02/04/22 2:54 PM) Weight Obtained Via Standing scale (02/04/22 2:54 PM) Social History Social History Type Response [...] Unknown Unknown Active Unknown Care Team PersonnelName: Keturah Ashby NP Address: [address] [place] [address]
--- OUTSIDE RECORDS SUMMARY | 2022-06-26 21:17 | XMS_ITS | Continuity of Care Document ---
:1991 Author Organization [facility] Address Unavailable , Care Team Providers Name Role Phone Isma IZQUIERDO, Keturah Primary Care Physician Encounter [facility] [place] Date(s): 04/30/21 - 05/30/21 [facility] Allergies, Adverse Reactions, Alerts Substance Reaction Severity Status Risperdal unkown Active Immunizations Given and Recorded Vaccine Date Status Refusal Reason influenza virus vaccine, inactivated1 07/03/19 Given 1Result Comment: [facility]# [id number] Medications calcium carbonate 500 mg (200 mg [...] 03/08/20 10:37:00 EDT, Route to Pharmacy Electronically, [facility], 170, cm, 02/22/20 20:33:00 EDT, Height, [...] Replace Required Details, Route to Pharmacy Electronically, [facility], 168, cm, 03/04/21 13:36:00 EDT, Heigh... Start Date: 03/14/21 Status: Orderedmagnesium citrate 8.85% oral liquid 300 mL = 17.45 Gm, By Mouth, Once, Use PRN after four days of no bowel movement. Repeat after 24 horus if no BM. Call PCP after 24 hours if no BM after second dose, # 300 mL, 5 Refills, Soft Stop, 12/13/20 15:34:00 EDT, Liquid, [facility], 300... Start Date: 12/13/20 Status: OrderedMelatonin [...] 15:39:00 EST, 12/11/20 15:39:00 EDT, REC Powder, [facility], Partial fill uponpatient request if the [...] MESH VENTRALIGHT ECHO CIR 4.5 - BARD ([id number]) 1 Bard Unknown JENNIFER: No Information Assigning Authority: FDA
--- OUTSIDE RECORDS SUMMARY | 2022-06-26 21:17 | XMS_ITS | Continuity of Care Document ---
:1990 Author Organization [facility] Adult [facility] Address [address] [place] [address]- Care Team Providers Name Role Phone Diego Ibarra Primary Care Physician [facility] Date(s): 09/03/20 - 10/03/20 [facility] Adult Medicine [address] [place], [place] [address] Allergies, Adverse Reactions, Alerts Substance Reaction Severity Status Risperdal Active Immunizations Given and Recorded Vaccine Date Status Refusal Reason influenza virus vaccine, inactivated1 07/03/19 Given 1Result Comment: [facility]# [id number] Medications benztropine 1 mg oral tablet 1 mg, 1, tablet, By Mouth, 2 times a day, # 60 tablet, Refills 3, Tot. Refills 3, Maintenance, 11/21/18 9:28:36 EDT, Route to Pharmacy Electronically, [id number], [facility]/pharmacy#[id number] Start Date: 11/21/18 Stop [...] 0 Refills, Maintenance, 09/13/20 13:08:00 EDT, Suppository, [facility], Partial fill upon patient request if the prescription is for a schedule II opioid drug., 170, cm, 09/13/20 1... Start Date: 09/13/20 Status: OrderedFLUoxetine 20 mg oral capsule 40 mg, 2, capsule, By Mouth, Daily, 2 capsules to equal 40 mg daily., # 60 capsule, Refills 5, Tot. Refills 5, Maintenance, 03/08/20 10:37:00 EDT, Route to Pharmacy Electronically, [facility], 170, cm, 02/22/20 20:33:00 EDT, Height, [...] 4 Refills, Maintenance, 09/19/20 13:00:00 EDT, Capsule, [facility]41, 170, cm, 09/13/20 15:29:00 EDT, Height, 88.3, kg, 09/13/20 15:29:00 EDT, Dry Weight Start Date: 09/19/20 Status: Orderedloratadine 10 mg oral tablet 10 mg, 1, tablet, By Mouth, Daily, for 30 days, # 30 tablet, Refills 6, Tot. Refills 6, Hard Stop 10/23/20 10:07:00 EDT, 03/27/20 10:07:00 EDT, Route to Pharmacy Electronically, [facility], 170, cm, 02/22/20 20:33:00 EDT, Height, [...] 10/23/20 10:07:00 EDT, Route to Pharmacy Electronically, [facility], 170, cm, 09/02/20 15:24:00 EDT, Height,86.6, [...] Refills, Soft Stop, 03/21/20 14:01:00 EDT, Liquid, [facility], 300... Start Date: 03/21/20 Status: Orderedmagnesium citrate 8.85% oral liquid 150 mL = 8.725 Gm, By Mouth, Once, # 300 mL, 0 Refills, Soft Stop, 09/20/20 15:27:00 EDT, Liquid, [facility] #[id number], Partial fill upon patient request if the [...] Refills, Acute 08/03/23 11:00:00EST, 08/02/20 8:59:00 EST, [facility], 28, 1 patch Topically Daily,Instr:ROTATE APPLICATION [...]
--- OUTSIDE RECORDS SUMMARY | 2022-06-26 21:17 | XMS_ITS | Continuity of Care Document ---
:1990 Author Organization [facility] Address [address] [place] [address]- Care Team Providers Name Role Phone Isma IZQUIERDO, Keturah Primary Care Physician Encounter [facility] NBR [id number] Date(s): 12/13/20 - 01/12/21 [facility] [address], [place] [address] Allergies, Adverse Reactions, Alerts Substance Reaction Severity Status Risperdal Active Immunizations Given and Recorded Vaccine Date Status Refusal Reason influenza virus vaccine, inactivated1 07/03/19 Given 1Result Comment: [facility]# [id number] Medications benztropine 1 mg oral tablet 1 mg, 1, tablet, By Mouth, 2 times a day, # 60 tablet, Refills 3, Tot. Refills 3, Maintenance, 11/21/18 9:28:36 EDT, Route to Pharmacy Electronically, [id number], [facility]/pharmacy#[id number] Start Date: 11/21/18 Stop Date: 03/21/19 [...] 03/08/20 10:37:00 EDT, Route to Pharmacy Electronically, [facility], 170, cm, 02/22/20 20:33:00 EDT, Height, [...] Refills, Maintenance, 09/19/20 13:00:00 EDT, Capsule, [facility], 170, cm, 09/13/20 15:29:00 EDT, Height, 88.3, [...] 10/23/20 10:07:00 EDT, Route to Pharmacy Electronically, [facility], 170, cm, 09/02/20 15:24:00 EDT, Height,86.6, [...] Refills, Soft Stop, 12/13/20 15:34:00 EDT, Liquid, [facility], 300... Start Date: 12/13/20 Status: OrderedMelatonin [...] 15:39:00 EST, 12/11/20 15:39:00 EDT, REC Powder, [facility], Partial fill uponpatient request if the [...] Gm, 2 Refills, Maintenance, 10/30/20 11:19:00 EDT, [facility], 30, MIX & DISSOLVE 17GM DOSE [...] 12/11/20 15:40:00 EDT, Route to Pharmacy Electronically, [facility], Partial fill upon patient request if [...]
--- OUTSIDE RECORDS SUMMARY | 2022-06-26 21:17 | XMS_ITS | Continuity of Care Document ---
:1990 Author Organization [facility] Address [address] [place] [address]- Care Team Providers Name Role Phone Isma IZQUIEDRO, Keturah Primary Care Physician Encounter [facility] ACCT R [id number] Date(s): 01/30/21 - 03/01/21 [facility] [address], [place] [address] Attending Physician: Bel Galloway Admitting Physician: AdmtrBel Referring Physician: Admtr ArDavid Allergies, Adverse Reactions, Alerts Substance Reaction Severity Status Risperdal Active Immunizations Given and Recorded Vaccine Date Status Refusal Reason influenza virus vaccine, inactivated1 07/03/19 Given 1Result Comment: [facility]# [id number] Medications benztropine 1 mg oral tablet 1 mg, 1, tablet, By Mouth, 2 times a day, # 60 tablet, Refills 3, Tot. Refills 3, Maintenance, 11/21/18 9:28:36 EDT, Route to Pharmacy Electronically, [id number], [facility]/pharmacy#[id number] Start Date: 11/21/18 Stop Date: 03/21/19 [...] 5 Refills, Maintenance, 10/30/20 11:18:00 EDT, Capsule, [facility], To replace 50 mg capsules, 168, cm, 10/30/20 11:05:00 EDT, Height, 83.3, kg, 10/24/20 17:15:00 ED... Start Date: 10/30/20 Status: OrderedDulcolax 10 mg rectal suppository 1 supp = 10 mg, Rectally, Daily, PRN for constipation, # 10 supp, 0 Refills, Maintenance, 09/13/20 13:08:00 EDT, Suppository, [facility], Partial fill upon patient request if the prescription is for a schedule II opioid drug., 170, cm, 09/13/20 1... Start Date: 09/13/20 Status: OrderedFLUoxetine 20 mg oral capsule 40 mg, 2, capsule, By Mouth, Daily, 2 capsules to equal 40 mg daily., # 60 capsule, Refills 5, Tot. Refills 5, Maintenance, 03/08/20 10:37:00 EDT, Route to Pharmacy Electronically, [facility], 170, cm, 02/22/20 20:33:00 EDT, Height, [...] 4 Refills, Maintenance, 09/19/20 13:00:00 EDT, Capsule, [facility]94[facility], 170, cm, 09/13/20 15:29:00 EDT, Height, 88.3, [...] 10/23/20 10:07:00 EDT, Route to Pharmacy Electronically, [facility], 170, cm, 09/02/20 15:24:00 EDT, Height,86.6, [...] Refills, Soft Stop, 12/13/20 15:34:00 EDT, Liquid, [facility], 300... Start Date: 12/13/20 Status: OrderedMelatonin [...] 15:39:00 EST, 12/11/20 15:39:00 EDT, REC Powder, [facility], Partial fill uponpatient request if the [...] Gm, 2 Refills, Maintenance, 10/30/20 11:19:00 EDT, [facility], 30, MIX & DISSOLVE 17GM DOSE [...] 12/11/20 15:40:00 EDT, Route to Pharmacy Electronically, [facility], Partial fill upon patient request if [...]
--- OUTSIDE RECORDS SUMMARY | 2022-06-26 21:17 | XMS_ITS | Continuity of Care Document ---
:1990 Author Organization [facility] Address [address] [place] [address]- Care Team Providers Name Role Phone Isma IZQUIERDO, Keturah Primary Care Physician Encounter [facility] [id number] Date(s): 06/26/21 - 08/29/21 [facility] [address] [place] [phone]- Attending Physician: Not on Staff, Attending MD Allergies, Adverse Reactions, Alerts Substance Reaction Severity Status Risperdal unkown Active Immunizations Given and Recorded Vaccine Date Status Refusal Reason influenza virus vaccine, inactivated1 07/03/19 Given 1Result Comment: [facility]# [id number] Medications calcium carbonate 500 mg (200 mg [...] 03/08/20 10:37:00 EDT, Route to Pharmacy Electronically, [facility], 170, cm, 02/22/20 20:33:00 EDT, Height, 80.9, kg, ... Start Date: 03/08/20 Status: Orderedibuprofen 600 mg oral tablet 600 mg, By Mouth, Every 6 hours, PRN, for 30 days, # 120 tablet, Refills 0, Tot. Refills 0, Acute 09/05/21 16:33:00 EDT, Pain , Moderate, 08/06/21 16:33:00 EST, Route to Pharmacy Electronically, [facility], Partial fill upon patient request if th... Start Date: 08/06/21 Stop Date: 09/05/21 Status: Orderedlidocaine 5% topical film 1 patch, Topically, Daily, PRN Pain , Mild, remove after 12 hours, # 30 patch, 3 Refills, Maintenance, 08/27/21 16:03:00 EDT, Film, [facility]- [address], Partial fill upon patient requestif the prescription is for a schedule II opioid d... Start Date: 08/27/21 Status: OrderedLinzess 145 mcg oral capsule 1 capsule = 145 mcg, By Mouth, Daily, # 90 capsule, 4 Refills, Maintenance, 03/26/21 16:53:00 EDT, Capsule, [facility], 168, cm, 03/04/21 13:36:00 EDT, Height, 83.3, kg, 10/24/20 17:15:00 EDT, DryWeight Start Date: 03/26/21 Status: Orderedloratadine 10 mg oral tablet See Instructions, TAKE 1 TABLET BY MOUTH DAILY IN THE MORNING, # 30 tablet, Refills 5, Instructions Replace Required Details, Route to Pharmacy Electronically, [facility], 168, cm, 07/21/21 12:32:00 EST, Height, [...] Refills, Soft Stop, 08/07/21 13:25:00 EST, Liquid, [facility], 17 grams By Mo... Start Date: 08/07/21 Status: OrderedMelatonin 5 mg oral tablet 1 tablet = 5 mg, By Mouth, Daily at bedtime, 0 Refills, Maintenance, 06/21/18 14:05:10 EST Start Date: 06/21/18 Status: OrderedMetamucil 3.4 gm/5.2 gm oral powder for reconstitution = 3.4 Gm, By Mouth, Daily, 0 Refills, Maintenance, [...] right shoulder(Confirmed) 08/15/20 Active Lives in senior care(Confirmed) Active Obesity(Confirmed) Active Pain of right humerus(Confirmed) 08/15/20 Active Annual physical exam(Confirmed) Active Tobacco abuse(Confirmed) Active Umbilical hernia(Confirmed) Active Social History Social History Type Response Smoking Status Former smoker, quit more padmini n 30 days ago entered on: 03/11/20 Sex Medical Equipment Implanted Date:04/07/21 Target Site:[employer] Description Quantity MRI Company Model MESH VENTRALIGHT ECHO CIR 4.5 - BARD ([id number]) 1 Bard Unknown JENNIFER: No Information Assigning Authority: FDA
--- OUTSIDE RECORDS SUMMARY | 2022-06-26 21:17 | XMS_ITS | Continuity of Care Document ---
:1990 Author Organization [facility] Address [address] [place] [address]- Care Team Providers Name Role Phone Isma IZQUIERDO, Keturah Primary Care Physician Encounter [facility] NBR [id number] Date(s): 10/08/21 - 11/07/21 [facility] [address] [place] [phone]- [place] Allergies, Adverse Reactions, Alerts Substance Reaction Severity Status Risperdal unkown Active Immunizations Given and Recorded Vaccine Date Status Refusal Reason influenza virus vaccine, inactivated1 07/03/19 Given 1Result Comment: [facility]# [id number] Medications calcium carbonate 500 mg (200 mg [...] 0 Refills, Maintenance, 09/13/20 13:08:00 EDT, Suppository, [facility], Partial fill upon patient request if the prescription is for a schedule II opioid drug., 170, cm, 09/13/20 1... Start Date: 09/13/20 Status: OrderedFLUoxetine 20 mg oral capsule 40 mg, 2, capsule, By Mouth, Daily, 2 capsules to equal 40 mg daily., # 60 capsule, Refills 5, Tot. Refills 5, Maintenance, 03/08/20 10:37:00 EDT, Route to Pharmacy Electronically, [facility], 170, cm, 02/22/20 20:33:00 EDT, Height, 80.9, kg, ... Start Date: 03/08/20 Status: Orderedlidocaine 5% topical film 1 patch, Topically, Daily, PRN Pain , Mild, remove after 12 hours, # 30 patch, 3 Refills, Maintenance, 08/27/21 16:03:00 EDT, Film, [facility]- [address], Partial fill upon patient requestif the prescription is for a schedule II opioid d... Start Date: 08/27/21 Status: OrderedLinzess 145 mcg oral capsule 1 capsule = 145 mcg, By Mouth, Daily, # 90 capsule, 4 Refills, Maintenance, 03/26/21 16:53:00 EDT, Capsule, [facility], 168, cm, 03/04/21 13:36:00 EDT, Height, 83.3, kg, 10/24/20 17:15:00 EDT, DryWeight Start Date: 03/26/21 Status: Orderedloratadine 10 mg oral tablet See Instructions, TAKE 1 TABLET BY MOUTH DAILY IN THE MORNING, # 30 tablet, Refills 5, Instructions Replace Required Details, Route to Pharmacy Electronically, [facility], 168, cm, 07/21/21 12:32:00 EST, Height, [...] Refills, Soft Stop, 08/07/21 13:25:00 EST, Liquid, [facility], 17 grams By Mo... Start Date: [...] Gm, 2 Refills, Maintenance, 10/30/20 11:19:00 EDT, [facility], 30, MIX & DISSOLVE 17GM DOSE [...] Response Smoking Status Former smoker, quit more apdmini n 30 days ago entered on: 03/11/20 Sex Medical Equipment Implanted Date:04/07/21 Target Site:[employer] Description Quantity MRI Company Model MESH VENTRALIGHT ECHO CIR 4.5 - BARD ([id number]) 1 Bard Unknown JENNIFER: No Information Assigning Authority: FDA
--- OUTSIDE RECORDS SUMMARY | 2022-06-26 21:17 | XMS_ITS | Continuity of Care Document ---
:1990 Author Organization [facility] Address [address] [place] [address]- Care Team Providers Name Role Phone Diego Ibarra Primary Care Physician Encounter [facility] Date(s): 04/01/20 - 04/08/20 [facility] [address] [place] [address]- Attending Physician: Rere Suarez MD Referring Physician: Diego Ibarra Allergies, Adverse Reactions, Alerts Substance Reaction Severity Status Risperdal Active Immunizations Given and Recorded Vaccine Date Status Refusal Reason influenza virus vaccine, inactivated1 07/03/19 Given 1Result Comment: [facility]# [id number] Medications benztropine 1 mg oral tablet 1 mg, 1, tablet, By Mouth, 2 times a day, # 60 tablet, Refills 3, Tot. Refills 3, Maintenance, 11/21/18 9:28:36 EDT, Route to Pharmacy Electronically, [id number], [facility]/pharmacy#[id number] Start Date: 11/21/18 [...] 03/08/20 10:37:00 EDT, Route to Pharmacy Electronically, [facility], 170, cm, 02/22/20 20:33:00 EDT, Height, [...] 4 Refills, Maintenance, 09/27/19 14:06:00 EDT, Capsule, [facility] #[id number], 169, cm, 07/03/19 16:03:00 EST, Height Start Date: 09/27/19 Status: Orderedloratadine 10 mg oral tablet 10 mg, 1, tablet, By Mouth, Daily, # 30 tablet, Refills 6, Tot. Refills 6, Maintenance, 03/27/20 10:07:00 EDT, Route to Pharmacy Electronically, [facility], 170, cm, 02/22/20 20:33:00 EDT, Height,80.9, [...] Refills, Soft Stop, 03/21/20 14:01:00 EDT, Liquid, [facility], 300... Start Date: 03/21/20 Status: OrderedMelatonin [...] 11:01:00 EST, 02/02/20 11:01:00 EDT, REC Powder, [facility], 17 Gm By Mouth Daily,x30 days,Instr:dissolve in w... Start Date: 02/02/20 Stop Date: 05/02/20 Status: OrderedMultivitamin Daily, 0 Refills, Maintenance, 06/21/18 14:04:37 EST Start Date: 06/21/18 Status: OrderedNicotine 7 mg/24 hour patch 1 patch, Topically, Daily, ROTATE APPLICATION SITES., # 28 patch, 1 Refills, Acute, 03/29/20 11:48:00 EDT, [facility], 28, APPLY ONE PATCH TOPICALLY DAILY [...] oldest [Reference Range]: 1 Height 170 cm (04/01/20 2:07 PM) Social History Social History Type Response Smoking Status Former smoker, quit more padmini n 30 days ago entered on: 03/11/20 Sex
--- OUTSIDE RECORDS SUMMARY | 2022-06-26 21:18 | XMS_ITS | Continuity of Care Document ---
:1990 Author Organization [facility] Address [address] [place] [address]- Care Team Providers Name Role Phone Diego Ibarra Primary Care Physician Encounter [facility] Date(s): 08/29/20 - 10/05/20 [facility] [address] [address]- Attending Physician: Daren WHITE, Carmelo Watts Referring Physician: Diego Ibarra Allergies, Adverse Reactions, Alerts Substance Reaction Severity Status Risperdal Active Immunizations Given and Recorded Vaccine Date Status Refusal Reason influenza virus vaccine, inactivated1 07/03/19 Given 1Result Comment: [facility]# [id number] Medications benztropine 1 mg oral tablet 1 mg, 1, tablet, By Mouth, 2 times a day, # 60 tablet, Refills 3, Tot. Refills 3, Maintenance, 11/21/18 9:28:36 EDT, Route to Pharmacy Electronically, [id number], [facility]/pharmacy#[id number] Start Date: 11/21/18 Stop [...] 03/08/20 10:37:00 EDT, Route to Pharmacy Electronically, [facility], 170, cm, 02/22/20 20:33:00 EDT, Height, [...] 4 Refills, Maintenance, 09/19/20 13:00:00 EDT, Capsule, [facility], 170, cm, 09/13/20 15:29:00 EDT, Height, 88.3, kg, 09/13/20 15:29:00 EDT, Dry Weight Start Date: 09/19/20 Status: Orderedloratadine 10 mg oral tablet 10 mg, 1, tablet, By Mouth, Daily, for 30 days, # 30 tablet, Refills 6, Tot. Refills 6, Hard Stop 10/23/20 10:07:00 EDT, 03/27/20 10:07:00 EDT, Route to Pharmacy Electronically, [facility], 170, cm, 02/22/20 20:33:00 EDT, Height, [...] 10/23/20 10:07:00 EDT, Route to Pharmacy Electronically, [facility], 170, cm, 09/02/20 15:24:00 EDT, Height,86.6, [...] Refills, Soft Stop, 03/21/20 14:01:00 EDT, Liquid, [facility], 300... Start Date: 03/21/20 Status: Orderedmagnesium citrate 8.85% oral liquid 150 mL = 8.725 Gm, By Mouth, Once, # 300 mL, 0 Refills, Soft Stop, 09/20/20 15:27:00 EDT, Liquid, [facility] #[id number], Partial fill upon patient request if the [...] Refills, Acute 08/03/23 11:00:00EST, 08/02/20 8:59:00 EST, [facility], 28, 1 patch Topically Daily,Instr:ROTATE APPLICATION [...] Stop 12/19/20 16:38:00 EDT, 09/17/20 16:38:00 EDT, [facility], 30, MIX & DISSOLVE 17GM... Start [...]
--- OUTSIDE RECORDS SUMMARY | 2022-06-26 21:18 | XMS_ITS | Continuity of Care Document ---
:1990 Author Organization [facility] Address [address] [place] [address]- Care Team Providers Name Role Phone Diego Ibarra Primary Care Physician [facility] Date[facility]): 02/02/20 - 02/09/20 [facility] [address] [place] [address]- Encounter Diagnosis Allergic rhinitis (Discharge Diagnosis) - 02/02/20 Chronic constipation (Discharge Diagnosis) - 02/02/20 Chronic GERD (Discharge Diagnosis) - 02/02/20 Intermittent explosive disorder in adult (Discharge Diagnosis) - 02/02/20 Long toenail (Discharge Diagnosis) - 02/02/20 Tobacco abuse (Discharge Diagnosis) - 02/02/20 Attending Physician: Diego Ibarra Allergies, Adverse Reactions, Alerts Substance Reaction Severity Status Risperdal Active Immunizations Given and Recorded Vaccine Date Status Refusal Reason influenza virus vaccine, inactivated1 07/03/19 Given 1Result Comment: [facility]# [id number] Medications benztropine 1 mg oral tablet 1 mg, 1, tablet, By Mouth, 2 times a day, # 60 tablet, Refills 3, Tot. Refills 3, Maintenance, 11/21/18 9:28:36 EDT, Route to Pharmacy Electronically, [id number], [facility]/pharmacy#[id number] Start Date: 11/21/18 Stop [...] 11/21/18 9:26:51 EDT, Route to Pharmacy Electronically, [id number], [facility]/pharmacy #[id number] Start Date: 11/21/18 Status: OrderedhydrOXYzine hydrochloride 50 mg oral tablet 1 tablet = 50 mg, By Mouth, Every 4 hours, PRN for anxiety, # 40 tablet, 0 Refills, Maintenance, 02/02/20 11:36:00 EDT, Tablet Start Date: 02/02/20 Status: OrderedLinzess 145 mcg oral capsule 1 capsule = 145 mcg, By Mouth, Daily, # 90 capsule, 4 Refills, Maintenance, 09/27/19 14:06:00 EDT, Capsule, [facility] #[id number], 169, cm, 07/03/19 16:03:00 EST, Height Start Date: 09/27/19 Status: Orderedloratadine 10 mg oral tablet 10 mg, 1, tablet, By Mouth, Daily in AM, Refills 0, Maintenance, 02/02/20 11:37:00 EDT Start Date: 02/02/20 Status: Orderedloratadine 10 mg oral tablet 10 mg, 1, tablet, By Mouth, Daily, # 30 tablet, Refills 6, Tot. Refills 6, Maintenance, 08/30/19 10:07:00 EDT, Route to Pharmacy Electronically, [facility] #[id number], 169, cm, 07/03/19 16:03:00 EST, Height Start [...] [facility] Clinical Infor mant Status Service Allergic rhinitis Discharge 02/02/20 Diagnosis Chronic Discharge 02/02/20 constipation Diagnosis Chronic GERD Discharge 02/02/20 Diagnosis Intermittent Discharge 02/02/20 explosive disorder Diagnosis in adult Long toenail Discharge 02/02/20 Diagnosis Tobacco abuse Discharge 02/02/20 Diagnosis Vital Signs Most recent to oldest [Reference Range]: 1 Height 169.0 cm (02/02/20 10:48 AM) Weight 76 kg (02/02/20 10:48 AM) Oxygen Saturation [94-100 %] 97 % (02/02/20 10:48 AM) Pulse Rate [55-90 bpm] 68 bpm (02/02/20 10:48 AM) Body Mass Index [18.5-24.99] 26.61 *H* (02/02/20 10:48 AM) Blood Pressure [90-138/55-84 mm Hg] 110/80 mm Hg (02/02/20 10:48 AM) Temperature [96.8-100.4 DegF] 97.9 DegF (02/02/20 10:48 AM) Blood pressure sites Arm, left (02/02/20 10:48 AM) Temperature Route Temporal (02/02/20 10:48 AM) Weight Obtained Via Standing scale (02/02/20 10:48 AM) Social History Social History Type Response Smoking Status 10 or more cigarettes (1/2 p ack or more)/day in last 30 days; Tobacco user in household: No; Type: Cigarettes; Previous treatment: None; Interested in cessation: No; Other: Resumed smoking January 2020; entered on: 02/02/20 Sex
--- OUTSIDE RECORDS SUMMARY | 2022-06-26 21:18 | XMS_ITS | Continuity of Care Document ---
:1990 Author Organization [facility] Address [address] [place] [address]- Care Team Providers Name Role Phone Isma IZQUIERDO, Keturah Primary Care Physician Encounter [facility] Date(s): 04/23/22 - 05/23/22 [facility] [address] [place] [phone]- [place] Allergies, Adverse Reactions, Alerts Substance Reaction Severity Status Risperdal unkown Active Immunizations Given and Recorded Vaccine Date Status Refusal Reason SARS-CoV-2 (COVID-19) mRNA-1273 vaccine 06/09/21 Recorded SARS-CoV-2 (COVID-19) mRNA-1273 vaccine 04/17/21 Recorded influenza virus vaccine, inactivated 04/17/21 Recorded influenza virus vaccine, inactivated1 07/03/19 Given 1Result Comment: [facility]# [id number] Medications calcium carbonate 500 mg (200 mg [...] 56 tablet, 3 Refills, Maintenance, 04/15/22 16:25:00 [id number], 28, TAKE 2 TABLETS BY MOUTH DAILY AT BEDTIME, 173, cm, 04/02/22 12:51:00 EDT, Height, 85.8, kg, 04/07/21 14:21:00 EDT, Dry Weight Start Date: 04/15/22 Status: OrderedDulcolax 10 mg rectal suppository 1 supp = 10 mg, Rectally, Daily, PRN for constipation, 1 supp daily as needed for constipation, # 10supp, 0 Refills, Maintenance, 02/03/22 15:20:00 EDT, Suppository, [facility]-82765, Partial fill upon patient request if the prescri... Start Date: 02/03/22 Status: OrderedFish Oil 1000 mg oral capsule 1 capsule = 1,000 mg, By Mouth, 2 times a day, may keep in fridge or freezer, # 60 capsule, 5 Refills, Maintenance, 05/05/22 16:21:00 EST, Capsule, [facility]-20339, Partial fill uponpatient request if the prescription [...] in AM, # 30 capsule, 0 Refills, [facility] [address], 168, cm, 228:41:00 EDT, Height, 85.8, kg, 04/07/21 14:21:00 EDT, Dry Weight Start Date: 01/08/22 Status: Orderedloratadine 10 mg oral tablet See Instructions, TAKE 1 TABLET BY MOUTH DAILY IN THE MORNING, # 30 tablet, Refills 5, Tot. Refills 5, 12/24/21 14:55:00 EDT, Instructions Replace Required Details, Route to Pharmacy Electronically, [place] [id number], 168, cm, ... Start Date: 12/24/21 Status: [...] 9:03:00 EST, 04/29/22 9:02:00 EST, REC Powder, [facility]-90237, Partial fill upon patient req... Start Date: 04/29/22 Stop Date: 05/29/22 Status: Orderedomeprazole 20 mg oral enteric coated capsule See Instructions, TAKE 1 CAPSULE BY MOUTH EVERY MORNING 30 MINUTES BEFORE MEAL, # 28 capsule, 2 Refills, Maintenance, 05/14/22 10:42:00 EST, [place] [id number], 173, cm, 04/29/22 8:45:00 EST, Height, 85.8, [...] 0 Refills, Maintenance, 04/02/22 13:48:00 EDT, Gel, [facility]-75432, Partial fill upon patient request if the [...] right Confirmed 08/15/20 Active shoulder Lives in snf Confirmed Active Obese class I Confirmed Active [...] Care Team PersonnelName: Keturah Ashby NP Position: [facility] Associate Professional Member Role: PCP Address: Address: [address] [place] [address]- Care Team Related PersonsName: HIRAL EGAN Address: [place] [facility] [place] [address] [place] Name: DENISHA EGAN Address: home [place], [place] Name: ELLA MUNGUIA Address: home [address] [place] [address] Name: HIEN ANGELES Address: home UNKNOWN UM
--- OUTSIDE RECORDS SUMMARY | 2022-06-26 21:18 | XMS_ITS | Continuity of Care Document ---
:1990 Author Organization [facility] Address [address] [place] [address]- Care Team Providers Name Role Phone Diego Ibarra Primary Care Physician Encounter [facility] [place] [id number] Date(s): 09/02/20 - 10/02/20 [facility] [address] [place] [address]- Attending Physician: Bel Galloway Admitting Physician: AdmBel schuster Referring Physician: AdmtrBel Allergies, Adverse Reactions, Alerts Substance Reaction Severity Status Risperdal Active Immunizations Given and Recorded Vaccine Date Status Refusal Reason influenza virus vaccine, inactivated1 07/03/19 Given 1Result Comment: [facility]# [id number] Medications benztropine 1 mg oral tablet 1 mg, 1, tablet, By Mouth, 2 times a day, # 60 tablet, Refills 3, Tot. Refills 3, Maintenance, 11/21/18 9:28:36 EDT, Route to Pharmacy Electronically, [id number], [facility]/pharmacy#[id number] Start Date: [...] 5 Refills, Maintenance, 06/04/20 9:18:00 EST, Capsule, [facility], To replace 50 mg capsules, 170, cm, 04/01/20 14:07:00 EDT, Height, 83.1, kg, 03/27/20 18:25:00 EDT... Start Date: 06/04/20 Status: OrderedDulcolax 10 mg rectal suppository 1 supp = 10 mg, Rectally, Daily, PRN for constipation, # 10 supp, 0 Refills, Maintenance, 09/13/20 13:08:00 EDT, Suppository, [facility], Partial fill upon patient request if the prescription is for a schedule II opioid drug., 170, cm, 09/13/20 1... Start Date: 09/13/20 Status: OrderedFLUoxetine 20 mg oral capsule 40 mg, 2, capsule, By Mouth, Daily, 2 capsules to equal 40 mg daily., # 60 capsule, Refills 5, Tot. Refills 5, Maintenance, 03/08/20 10:37:00 EDT, Route to Pharmacy Electronically, [facility], 170, cm, 02/22/20 20:33:00 EDT, Height, [...] 09/19/20 13:00:00 EDT, Capsule, [facility]76, 170, cm, 09/13/20 15:29:00 EDT, Height, 88.3, kg, 09/13/20 15:29:00 EDT, Dry Weight Start Date: 09/19/20 Status: Orderedloratadine 10 mg oral tablet 10 mg, 1, tablet, By Mouth, Daily, for 30 days, # 30 tablet, Refills 6, Tot. Refills 6, Hard Stop 10/23/20 10:07:00 EDT, 03/27/20 10:07:00 EDT, Route to Pharmacy Electronically, [facility], 170, cm, 02/22/20 20:33:00 EDT, Height, [...] 10/23/20 10:07:00 EDT, Route to Pharmacy Electronically, [facility], 170, cm, 09/02/20 15:24:00 EDT, Height,86.6, [...] Refills, Soft Stop, 03/21/20 14:01:00 EDT, Liquid, [facility], 300... Start Date: 03/21/20 Status: Orderedmagnesium citrate 8.85% oral liquid 150 mL = 8.725 Gm, By Mouth, Once, # 300 mL, 0 Refills, Soft Stop, 09/20/20 15:27:00 EDT, Liquid, [facility][id number], Partial fill upon patient request if the [...] Refills, Acute 08/03/23 11:00:00EST, 08/02/20 8:59:00 EST, [facility], 28, 1 patch Topically Daily,Instr:ROTATE APPLICATION [...]
--- OUTSIDE RECORDS SUMMARY | 2022-06-26 21:18 | XMS_ITS | Continuity of Care Document ---
:1990 Author Organization [facility] [employer] [facility] Address [address] [place] [address]- Care Team Providers Name Role Phone Diego Ibarra Primary Care Physician Encounter [facility] Date(s): 10/21/20 - 11/20/20 [facility] [employer] [facility] [address], [place] [address] Allergies, Adverse Reactions, Alerts Substance Reaction Severity Status Risperdal Active Immunizations Given and Recorded Vaccine Date Status Refusal Reason influenza virus vaccine, inactivated1 07/03/19 Given 1Result Comment: [facility]# [id number] Medications benztropine 1 mg oral tablet 1 mg, 1, tablet, By Mouth, 2 times a day, # 60 tablet, Refills 3, Tot. Refills 3, Maintenance, 11/21/18 9:28:36 EDT, Route to Pharmacy Electronically, [id number], [facility]/pharmacy#[id number] Start Date: 11/21/18 [...] 03/08/20 10:37:00 EDT, Route to Pharmacy Electronically, [facility], 170, cm, 02/22/20 20:33:00 EDT, Height, [...] 4 Refills, Maintenance, 09/19/20 13:00:00 EDT, Capsule, [facility] [place], 170, cm, 09/13/20 15:29:00 EDT, Height, 88.3, [...] 10/23/20 10:07:00 EDT, Route to Pharmacy Electronically, [facility], 170, cm, 09/02/20 15:24:00 EDT, Height,86.6, [...] Refills, Soft Stop, 03/21/20 14:01:00 EDT, Liquid, [facility], 300... Start Date: 03/21/20 Status: Orderedmagnesium citrate 8.85% oral liquid 150 mL = 8.725 Gm, By Mouth, Once, # 300 mL, 0 Refills, Soft Stop, 09/20/20 15:27:00 EDT, Liquid, [facility] #[id number], Partial fill upon patient request if the [...] 3 Refills, Maintenance, 10/30/20 11:19:00 EDT, Capsule, [facility], Partial fill upon patient request if [...]
--- OUTSIDE RECORDS SUMMARY | 2022-06-26 21:18 | XMS_ITS | Continuity of Care Document ---
:1990 Author Organization [facility] [employer] [facility] Address [address] [place] [address]- Care Team Providers Name Role Phone Isma IZQUIERDO, Keturah Primary Care Physician Encounter [facility] N[facility] [id number] Date(s): 07/17/21 - 08/16/21 [facility] [address] [phone]- Allergies, Adverse Reactions, Alerts Substance Reaction Severity Status Risperdal unkown Active Immunizations Given and Recorded Vaccine Date Status Refusal Reason influenza virus vaccine, inactivated1 07/03/19 Given 1Result Comment: [facility]# [id number] Medications calcium carbonate 500 mg (200 mg [...] 03/08/20 10:37:00 EDT, Route to Pharmacy Electronically, [facility], 170, cm, 02/22/20 20:33:00 EDT, Height, 80.9, kg, ... Start Date: 03/08/20 Status: Orderedibuprofen 600 mg oral tablet 600 mg, By Mouth, Every 6 hours, PRN, for 30 days, # 120 tablet, Refills 0, Tot. Refills 0, Acute 09/05/21 16:33:00 EDT, Pain , Moderate, 08/06/21 16:33:00 EST, [facility], Partial fill upon patient request if [...] Replace Required Details, Route to Pharmacy Electronically, [facility], 168, cm, 03/04/21 13:36:00 EDT, Frederic... Start Date: 03/14/21 Status: Orderedmagnesium citrate 8.85% oral liquid 17 grams, By Mouth, Once, Use PRN after four days of no bowel movement. Repeat after 24 hours if no BM. Call PCP after 24 hours if no BM after second dose, # 68 Gm, 5 Refills, Soft Stop, 08/07/21 13:25:00 EST, Liquid, [facility], 17 grams By Mo... Start Date: [...] Gm, 2 Refills, Maintenance, 10/30/20 11:19:00 EDT, [facility], 30, MIX & DISSOLVE 17GM DOSE [...] MESH VENTRALIGHT ECHO CIR 4.5 - BARD ([id number]) 1 Bard Unknown JENNIFER: No Information Assigning Authority: FDA
--- OUTSIDE RECORDS SUMMARY | 2022-06-26 21:18 | XMS_ITS | Continuity of Care Document ---
:1990 Author Organization [facility] [employer] [facility] Address [address] [place] [address]- Care Team Providers Name Role Phone Diego Ibarra Primary Care Physician Encounter [facility] Date(s): 09/13/20 - 10/13/20 [facility] [address] [place] [address]- Allergies, Adverse Reactions, Alerts Substance Reaction Severity Status Risperdal Active Immunizations Given and Recorded Vaccine Date Status Refusal Reason influenza virus vaccine, inactivated1 07/03/19 Given 1Result Comment: [facility]# [id number] Medications benztropine 1 mg oral tablet 1 mg, 1, tablet, By Mouth, 2 times a day, # 60 tablet, Refills 3, Tot. Refills 3, Maintenance, 11/21/18 9:28:36 EDT, Route to Pharmacy Electronically, [id number], [facility]/pharmacy#[id number] Start Date: 11/21/18 Stop Date: 03/21/19 Status: [...] 5 Refills, Maintenance, 06/04/20 9:18:00 EST, Capsule, [facility], To replace 50 mg capsules, 170, cm, 04/01/20 14:07:00 EDT, Height, 83.1, kg, 03/27/20 18:25:00 EDT... Start Date: 06/04/20 Status: OrderedDulcolax 10 mg rectal suppository 1 supp = 10 mg, Rectally, Daily, PRN for constipation, # 10 supp, 0 Refills, Maintenance, 09/13/20 13:08:00 EDT, Suppository, [facility], Partial fill upon patient request if the prescription is for a schedule II opioid drug., 170, cm, 09/13/20 1... Start Date: 09/13/20 Status: OrderedFLUoxetine 20 mg oral capsule 40 mg, 2, capsule, By Mouth, Daily, 2 capsules to equal 40 mg daily., # 60 capsule, Refills 5, Tot. Refills 5, Maintenance, 03/08/20 10:37:00 EDT, Route to Pharmacy Electronically, [facility], 170, cm, 02/22/20 20:33:00 EDT, [...] 4 Refills, Maintenance, 09/19/20 13:00:00 EDT, Capsule, [facility] [id number], 170, cm, 09/13/20 15:29:00 EDT, Height, 88.3, kg, 09/13/20 15:29:00 EDT, Dry Weight Start Date: 09/19/20 Status: Orderedloratadine 10 mg oral tablet 10 mg, 1, tablet, By Mouth, Daily, for 30 days, # 30 tablet, Refills 6, Tot. Refills 6, Hard Stop 10/23/20 10:07:00 EDT, 03/27/20 10:07:00 EDT, Route to Pharmacy Electronically, [facility], 170, cm, 02/22/20 20:33:00 EDT, [...] 10/23/20 10:07:00 EDT, Route to Pharmacy Electronically, [facility], 170, cm, 09/02/20 15:24:00 EDT, Height,86.6, [...] Refills, Soft Stop, 03/21/20 14:01:00 EDT, Liquid, [facility], 300... Start Date: 03/21/20 Status: Orderedmagnesium citrate 8.85% oral liquid 150 mL = 8.725 Gm, By Mouth, Once, # 300 mL, 0 Refills, Soft Stop, 09/20/20 15:27:00 EDT, Liquid, [facility] #[id number], Partial fill upon patient request if the [...] Refills, Acute 08/03/23 11:00:00EST, 08/02/20 8:59:00 EST, [facility], 28, 1 patch Topically Daily,Instr:ROTATE [...]
--- OUTSIDE RECORDS SUMMARY | 2022-06-26 21:18 | XMS_ITS | Continuity of Care Document ---
:1990 Author Organization [facility] [employer] [facility] Address [address] [place] [address]- Care Team Providers Name Role Phone Isma IZQUIERDO, Keturah Primary Care Physician Encounter [facility] Date(s): 02/19/22 - 03/21/22 [facility] [address] [place] [phone]- [place] Allergies, Adverse Reactions, Alerts Substance Reaction Severity Status Risperdal unkown Active Immunizations Given and Recorded Vaccine Date Status Refusal Reason SARS-CoV-2 (COVID-19) mRNA-1273 vaccine 06/09/21 Recorded SARS-CoV-2 (COVID-19) mRNA-1273 vaccine 04/17/21 Recorded influenza virus vaccine, inactivated 04/17/21 Recorded influenza virus vaccine, inactivated1 07/03/19 Given 1Result Comment: [facility]# [id number] Medications Ativan 2 mg oral tablet 1 [...] 0 Refills, Maintenance, 02/03/22 15:20:00 EDT, Suppository, [facility]-73854, Partial fill upon patient request if the [...] 3 Refills, Maintenance, 08/27/21 16:03:00 EDT, Film, [facility] [id number], Partial fill upon patient requestif the prescription is for a schedule II opioid d... Start Date: 08/27/21 Status: OrderedLinzess 145 mcg oral capsule 1 capsule, By Mouth, Daily in AM, # 30 capsule, 0 Refills, [place] [id number], 168, cm, 228:41:00 EDT, Height, 85.8, kg, 04/07/21 14:21:00 EDT, Dry Weight Start Date: 01/08/22 Status: Orderedloratadine 10 mg oral tablet See Instructions, TAKE 1 TABLET BY MOUTH DAILY IN THE MORNING, # 30 tablet, Refills 5, Tot. Refills 5, 12/24/21 14:55:00 EDT, Instructions Replace Required Details, Route to Pharmacy Electronically, [facility]-93095, 168, cm, ... Start Date: 12/24/21 Status: Orderedmagnesium citrate 8.85% oral liquid 17 grams, By Mouth, Once, Use PRN after four days of no bowel movement. Repeat after 24 hours if no BM. Call PCP after 24 hours if no BM after second dose, # 68 Gm, 5 Refills, Soft Stop, 08/07/21 13:25:00 EST, Liquid, [facility], 17 grams By Mo... Start Date: 08/07/21 Status: Orderedmagnesium citrate 8.85% oral liquid 17 grams, By Mouth, Once, Use PRN after four days of no bowel movement. Repeat after 24 hours if no BM. Call PCP after 24 hours if no BM after second dose, # 68 Gm, 1 Refills, Soft Stop, 02/04/22 15:33:00 EDT, Liquid, [facility]-00... Start Date: 02/04/22 Status: OrderedMelatonin [...] Refills, Maintenance, 12/05/21 16:01:00 EDT, EC Capsule, [facility]-34672, Partial fill upon patient request if the prescription isfor a schedule II opioid drug., 168, cm, 11/20/21... Start Date: 12/05/21 Status: OrderedPeri-Colace 50 mg-8.6 mg oral tablet 2 tablet, By Mouth, Daily at bedtime, for 30 days, # 60 tablet, 5 Refills, Acute 05/19/22 10:38:00 EST, 11/20/21 10:38:00 EDT, Tablet, [facility]-07234, Partial fill upon patient request if the prescription is for a schedule II opioi... Start Date: 11/20/21 Stop Date: 05/19/22 Status: Orderedpolyethylene glycol 3350 oral powder for reconstitution See Instructions, MIX & DISSOLVE 17GM DOSE IN 4 TO 8 OUNCES OF WATER, DRINK THE SOLUTION ONCE A DAY NEEDED FOR CONSTIPATION, # 510 Gm, 2 Refills, Maintenance, 02/04/22 15:24:00 EDT, [facility]-85760, 30, MIX & DISSOLVE 17GM DOSE I... [...] right Confirmed 08/15/20 Active shoulder Lives in longterm Confirmed Active Obesity Confirmed Active Pain of [...] information PersonnelName: Keturah Ashby NP Address: Address: [address] [place] [id number]
--- OUTSIDE RECORDS SUMMARY | 2022-06-26 21:18 | XMS_ITS | Continuity of Care Document ---
:1990 Author Organization [facility] [facility] Address [address] [place] [address]- Care Team Providers Name Role Phone Isma IZQUIERDO, Keturah Primary Care Physician Encounter [facility] Date(s): 04/22/22 - 05/22/22 [facility] [employer] [address] [place] [phone]- [place] Allergies, Adverse Reactions, Alerts Substance Reaction Severity Status Risperdal unkown Active Immunizations Given and Recorded Vaccine Date Status Refusal Reason SARS-CoV-2 (COVID-19) mRNA-1273 vaccine 06/09/21 Recorded SARS-CoV-2 (COVID-19) mRNA-1273 vaccine 04/17/21 Recorded influenza virus vaccine, inactivated 04/17/21 Recorded influenza virus vaccine, inactivated1 07/03/19 Given 1Result Comment: [facility]# [id number] Medications calcium carbonate 500 mg (200 mg [...] 56 tablet, 3 Refills, Maintenance, 04/15/22 16:25:00 [facility]-25487, 28, TAKE 2 TABLETS BY MOUTH DAILY AT BEDTIME, 173, cm, 04/02/22 12:51:00 EDT, Height, 85.8, kg, 04/07/21 14:21:00 EDT, Dry Weight Start Date: 04/15/22 Status: OrderedDulcolax 10 mg rectal suppository 1 supp = 10 mg, Rectally, Daily, PRN for constipation, 1 supp daily as needed for constipation, # 10supp, 0 Refills, Maintenance, 02/03/22 15:20:00 EDT, Suppository, [facility]-47540, Partial fill upon patient request if the prescri... Start Date: 02/03/22 Status: OrderedFish Oil 1000 mg oral capsule 1 capsule = 1,000 mg, By Mouth, 2 times a day, may keep in fridge or freezer, # 60 capsule, 5 Refills, Maintenance, 05/05/22 16:21:00 EST, Capsule, [facility]-38550, Partial fill uponpatient request if the prescription [...] in AM, # 30 capsule, 0 Refills, [facility] [address], 168, cm, 228:41:00 EDT, Height, 85.8, kg, 04/07/21 14:21:00 EDT, Dry Weight Start Date: 01/08/22 Status: Orderedloratadine 10 mg oral tablet See Instructions, TAKE 1 TABLET BY MOUTH DAILY IN THE MORNING, # 30 tablet, Refills 5, Tot. Refills 5, 12/24/21 14:55:00 EDT, Instructions Replace Required Details, Route to Pharmacy Electronically, [place] [id number], 168, cm, ... Start Date: 12/24/21 Status: [...] 9:03:00 EST, 04/29/22 9:02:00 EST, REC Powder, [facility]-28948, Partial fill upon patient req... Start Date: 04/29/22 Stop Date: 05/29/22 Status: Orderedomeprazole 20 mg oral enteric coated capsule See Instructions, TAKE 1 CAPSULE BY MOUTH EVERY MORNING 30 MINUTES BEFORE MEAL, # 28 capsule, 2 Refills, Maintenance, 05/14/22 10:42:00 EST, [place] [id number], 173, cm, 04/29/22 8:45:00 EST, Height, 85.8, [...] 0 Refills, Maintenance, 04/02/22 13:48:00 EDT, Gel, [facility]-93161, Partial fill upon patient request if the [...] right Confirmed 08/15/20 Active shoulder Lives in [facility] Confirmed Active Obese class I Confirmed Active [...] Care Team PersonnelName: Keturah Ashby NP Position: [facility] Associate Professional Member Role: PCP Address: Address: [address] [place] [address]- Care Team Related PersonsName: HIRAL EGAN Address: [facility] [place] [address] [place] Name: DENISHA EGAN Address: home [place], [place] Name: ELLA MUNGUIA Address: home [address] [place] [address] Name: HIEN ANGELES Address: home UNKNOWN UM
--- OUTSIDE RECORDS SUMMARY | 2022-06-26 21:18 | XMS_ITS | Continuity of Care Document ---
:1990 Author Organization [facility] Address [address] [place] [address]- Care Team Providers Name Role Phone Diego Ibarra Primary Care Physician [id number] Date(s): 01/15/20 - 02/14/20 [facility] [address] [place] [address]- Allergies, Adverse Reactions, Alerts Substance Reaction Severity Status Risperdal Active Immunizations Given and Recorded Vaccine Date Status Refusal Reason influenza virus vaccine, inactivated1 07/03/19 Given 1Result Comment: [facility]# [id number] Medications benztropine 1 mg oral tablet 1 mg, 1, tablet, By Mouth, 2 times a day, # 60 tablet, Refills 3, Tot. Refills 3, Maintenance, 11/21/18 9:28:36 EDT, Route to Pharmacy Electronically, [id number], [facility]/pharmacy#[id number] Start Date: 11/21/18 Stop Date: [...] 11/21/18 9:26:51 EDT, Route to Pharmacy Electronically, [id number], [facility]/pharmacy #[id number] Start Date: 11/21/18 Status: OrderedhydrOXYzine hydrochloride 50 mg oral tablet 1 tablet = 50 mg, By Mouth, Every 4 hours, PRN for anxiety, # 40 tablet, 0 Refills, Maintenance, 02/02/20 11:36:00 EDT, Tablet Start Date: 02/02/20 Status: OrderedLinzess 145 mcg oral capsule 1 capsule = 145 mcg, By Mouth, Daily, # 90 capsule, 4 Refills, Maintenance, 09/27/19 14:06:00 EDT, Capsule, [facility] #[id number], 169, cm, 07/03/19 16:03:00 EST, Height Start Date: 09/27/19 Status: Orderedloratadine 10 mg oral tablet 10 mg, 1, tablet, By Mouth, Daily in AM, Refills 0, Maintenance, 02/02/20 11:37:00 EDT Start Date: 02/02/20 Status: Orderedloratadine 10 mg oral tablet 10 mg, 1, tablet, By Mouth, Daily, # 30 tablet, Refills 6, Tot. Refills 6, Maintenance, 08/30/19 10:07:00 EDT, Route to Pharmacy Electronically, [facility] #[id number], 169, cm, 07/03/19 16:03:00 EST, Height Start [...]
--- OUTSIDE RECORDS SUMMARY | 2022-06-26 21:18 | XMS_ITS | Continuity of Care Document ---
:1990 Author Organization [facility] Address [address] [place] [address]- Care Team Providers Name Role Phone Diego Ibarra Primary Care Physician Encounter [facility] Date(s): 02/29/20 - 02/29/[address] [address]- [facility] Discharge Disposition: A-D/C Home Attending Physician: Gerard Keita MD Admitting Physician: Gerard Keita MD Referring Physician: Not on Staff, Referring MD Allergies, Adverse Reactions, Alerts Substance Reaction Severity Status Risperdal Active Immunizations Given and Recorded Vaccine Date Status Refusal Reason influenza virus vaccine, inactivated1 07/03/19 Given 1Result Comment: [facility]# [id number] Medications benztropine 1 mg oral tablet 1 mg, 1, tablet, By Mouth, 2 times a day, # 60 tablet, Refills 3, Tot. Refills 3, Maintenance, 11/21/18 9:28:36 EDT, Route to Pharmacy Electronically, [id number], [facility]/pharmacy#[id number] Start Date: 11/21/18 Stop Date: 03/21/19 [...] 11/21/18 9:26:51 EDT, Route to Pharmacy Electronically, [id number], [facility]/pharmacy #[id number] Start Date: 11/21/18 Status: OrderedhydrOXYzine hydrochloride 50 mg oral tablet 1 tablet = 50 mg, By Mouth, Every 4 hours, PRN for anxiety, # 40 tablet, 0 Refills, Maintenance, 02/02/20 11:36:00 EDT, Tablet Start Date: 02/02/20 Status: OrderedLinzess 145 mcg oral capsule 1 capsule = 145 mcg, By Mouth, Daily, # 90 capsule, 4 Refills, Maintenance, 09/27/19 14:06:00 EDT, Capsule, [facility] #[id number], 169, cm, 07/03/19 16:03:00 EST, Height Start Date: 09/27/19 Status: Orderedloratadine 10 mg oral tablet 10 mg, 1, tablet, By Mouth, Daily in AM, Refills 0, Maintenance, 02/02/20 11:37:00 EDT Start Date: 02/02/20 Status: Orderedloratadine 10 mg oral tablet 10 mg, 1, tablet, By Mouth, Daily, # 30 tablet, Refills 6, Tot. Refills 6, Maintenance, 08/30/19 10:07:00 EDT, Route to Pharmacy Electronically, [facility][id number], 169, cm, 07/03/19 16:03:00 EST, Height Start [...] 11:01:00 EST, 02/02/20 11:01:00 EDT, REC Powder, [facility], 17 Gm By Mouth Daily,x30 days,Instr:dissolve in w... Start Date: 02/02/20 Stop Date: 05/02/20 Status: OrderedMultivitamin Daily, 0 Refills, Maintenance, 06/21/18 14:04:37 EST Start Date: 06/21/18 Status: OrderedNicotine 7 mg/24 hour patch 1 patch, Topically, Daily, # 30 patch, 1 Refills, Maintenance, 02/02/20 11:10:00 EDT, Patch, [facility], 1 patch Topically Daily, 169, cm, [...] Exam Date Time Procedure Performing Provider Status 02/29/20 8:13 PM Wrist Comp Min 3 Views Right Olivier Sadler; Akash h (Verified) Notes:(Wrist Comp Min 3 Views Right) Reason For Exam: TraumaRESULT: Wrist Comp Min 3 Views Right Wrist Comp Min 3 Views Right Hx of Present Illness: right hand pain post mechanical fall. no swelling or bruising to the area COMPARISON: None. FINDINGS: No fracture or dislocation. No arthritic change. Normal carpal configuration. Intact radial and ulnar styloid processes. Normal soft tissues. IMPRESSION: No fracture or dislocation. WSN: [id number] Ordering Physician: Gerard Keita Dictated By: Mata Barker DO Dictated Date/Time: 02/29/20 8:16 pm Reviewed By: Mata Barker DO Signed By: Mata Barker DO Signed Date/Time: 02/29/20 8:16 pm Transcribed By: LARISA Transcribed Date/Time: 02/29/20 8:15 pm Vital Signs Most recent to oldest [Reference Range]: 1 Height 0 cm (02/29/20 7:49 PM) Weight 80.9 kg (02/29/20 7:49 PM) Oxygen Saturation [94-100 %] 100 % (02/29/20 7:49 PM) Pulse Rate [55-90 bpm] 78 bpm (02/29/20 7:49 PM) Blood Pressure [90-138/55-84 mm Hg] 138/73 mm Hg (02/29/20 7:49 PM) Respiratory Rate [16-30 br/min] 16 br/min (02/29/20 7:49 PM) Temperature [96.8-100.4 DegF] 98.0 DegF (02/29/20 7:49 PM) Mode of Delivery (Oxygen) Room air (02/29/20 7:49 PM) Blood pressure sites Arm, right (02/29/20 7:49 PM) Temperature Route Oral (02/29/20 7:49 PM) Dry Weight 80.9 kg (02/29/20 7:49 PM) Weight Obtained Via Standing scale (02/29/20 7:49 PM) Social History Social History Type Response Smoking Status 10 or more cigarettes (1/2 p ack or more)/day in last 30 days; Tobacco user in household: No; Type: Cigarettes; Previous treatment: None; Interested in cessation: No; Other: Resumed smoking January 2020; entered on: 02/02/20 Sex
--- OUTSIDE RECORDS SUMMARY | 2022-06-26 21:18 | XMS_ITS | Continuity of Care Document ---
:1990 Author Organization [facility] Address [address] [place] [address]- Care Team Providers Name Role Phone Isma IZQUIERDO, Keturah Primary Care Physician Encounter [facility] NBR [id number] Date(s): 01/24/21 - 02/23/21 [facility] [address] [place] [address]- Allergies, Adverse Reactions, Alerts Substance Reaction Severity Status Risperdal Active Immunizations Given and Recorded Vaccine Date Status Refusal Reason influenza virus vaccine, inactivated1 07/03/19 Given 1Result Comment: [facility]# [id number] Medications benztropine 1 mg oral tablet 1 mg, 1, tablet, By Mouth, 2 times a day, # 60 tablet, Refills 3, Tot. Refills 3, Maintenance, 11/21/18 9:28:36 EDT, Route to Pharmacy Electronically, [id number], [facility]/pharmacy#[id number] Start Date: 11/21/18 Stop [...] 09/19/20 13:00:00 EDT, Capsule, [facility]27, 170, cm, 09/13/20 15:29:00 EDT, Height, 88.3, [...] 10/23/20 10:07:00 EDT, Route to Pharmacy Electronically, [facility], 170, cm, 09/02/20 15:24:00 EDT, [...] Refills, Soft Stop, 12/13/20 15:34:00 EDT, Liquid, [facility], 300... Start Date: 12/13/20 Status: [...] 15:39:00 EST, 12/11/20 15:39:00 EDT, REC Powder, [facility], Partial fill uponpatient request if [...] Gm, 2 Refills, Maintenance, 10/30/20 11:19:00 EDT, [facility], 30, MIX & DISSOLVE 17GM [...] 12/11/20 15:40:00 EDT, Route to Pharmacy Electronically, [facility], Partial fill upon patient request [...]
--- OUTSIDE RECORDS SUMMARY | 2022-06-26 21:18 | XMS_ITS | Continuity of Care Document ---
:1990 Author Organization [facility] Address [address] [place] [id number]- Care Team Providers Name Role Phone Isma IZQUIERDO, Keturah Primary Care Physician Encounter [facility] [id number] Date(s): 03/04/21 - 03/11/21 [facility] Adult [facility] [address] [place], [place] [id number]- Attending Physician: Cornell Bravo Allergies, Adverse Reactions, Alerts Substance Reaction Severity Status Risperdal Active Immunizations Given and Recorded Vaccine Date Status Refusal Reason influenza virus vaccine, inactivated1 07/03/19 Given 1Result Comment: [facility]# [id number] Medications benztropine 1 mg oral tablet 1 mg, 1, tablet, By Mouth, 2 times a day, # 60 tablet, Refills 3, Tot. Refills 3, Maintenance, 11/21/18 9:28:36 EDT, Route to Pharmacy Electronically, [id number], [facility]/pharmacy#[id number] Start Date: 11/21/18 [...] 03/08/20 10:37:00 EDT, Route to Pharmacy Electronically, [facility], 170, cm, 02/22/20 20:33:00 EDT, Height, [...] 4 Refills, Maintenance, 09/19/20 13:00:00 EDT, Capsule, [facility]689, 170, cm, 09/13/20 15:29:00 EDT, Height, 88.3, kg, 09/13/20 15:29:00 EDT, Dry Weight Start Date: 09/19/20 Status: OrderedLinzess 72 mcg oral capsule 1 capsule = 72 mcg, By Mouth, Daily, do not crush or chew, # 90 capsule, 3 Refills, Maintenance, 12/25/20 13:52:00 EDT, Capsule, [facility], Partial fill upon patient request if [...] 10/23/20 10:07:00 EDT, Route to Pharmacy Electronically, [facility], 170, cm, 09/02/20 15:24:00 EDT, Height,86.6, [...] 15:39:00 EST, 12/11/20 15:39:00 EDT, REC Powder, [facility], Partial fill uponpatient request if the [...] Gm, 2 Refills, Maintenance, 10/30/20 11:19:00 EDT, [facility], 30, MIX & DISSOLVE 17GM DOSE [...] [Reference Range]: 1 Height 168 cm (03/04/21 1:36 PM) Weight 89.3 kg (03/04/21 1:36 PM) Oxygen Saturation [94-100 %] 97 % (03/04/21 1:36 PM) Pulse Rate [55-90 bpm] 82 bpm (03/04/21 1:36 PM) Body Mass Index [18.5-24.99] 31.64 *>HHI* (03/04/21 1:36 PM) Blood Pressure [90-138/55-84 mm Hg] 118/82 mm Hg (03/04/21 1:36 PM) Temperature [96.8-100.4 DegF] 98.6 DegF (03/04/21 1:36 PM) Liters per Minute 0 L/min (03/04/21 1:36 PM) Mode of Delivery (Oxygen) Room air (03/04/21 1:36 PM) Blood pressure sites Arm, left (03/04/21 1:36 PM) Temperature Route Temporal (03/04/21 1:36 PM) Weight Obtained Via Standing scale (03/04/21 1:36 PM) Social History Social History Type Response Smoking Status Former smoker, quit more padmini n 30 days ago entered on: 03/11/20 Sex
--- OUTSIDE RECORDS SUMMARY | 2022-06-26 21:18 | XMS_ITS | Continuity of Care Document ---
:1990 Author Organization [facility] Address [address] [place] [address]- Care Team Providers Name Role Phone Isma IZQUIERDO, Keturah Primary Care Physician Encounter [facility] Date(s): 04/03/22 - 05/03/22 [facility] [address] [place] [phone]- [place] Allergies, Adverse Reactions, Alerts Substance Reaction Severity Status Risperdal unkown Active Immunizations Given and Recorded Vaccine Date Status Refusal Reason SARS-CoV-2 (COVID-19) mRNA-1273 vaccine 06/09/21 Recorded SARS-CoV-2 (COVID-19) mRNA-1273 vaccine 04/17/21 Recorded influenza virus vaccine, inactivated 04/17/21 Recorded influenza virus vaccine, inactivated1 07/03/19 Given 1Result Comment: [facility]# [id number] Medications calcium carbonate 500 mg (200 mg [...] 56 tablet, 3 Refills, Maintenance, 04/15/22 16:25:00 [facility]-[id number], 28, TAKE 2 TABLETS BY MOUTH DAILY AT BEDTIME, 173, cm, 04/02/22 12:51:00 EDT, Height, 85.8, kg, 04/07/21 14:21:00 EDT, Dry Weight Start Date: 04/15/22 Status: OrderedDulcolax 10 mg rectal suppository 1 supp = 10 mg, Rectally, Daily, PRN for constipation, 1 supp daily as needed for constipation, # 10supp, 0 Refills, Maintenance, 02/03/22 15:20:00 EDT, Suppository, [facility] [place]-[id number], Partial fill upon patient request if the [...] in AM, # 30 capsule, 0 Refills, [place] [id number], 168, cm, 228:41:00 EDT, Height, 85.8, kg, 04/07/21 14:21:00 EDT, Dry Weight Start Date: 01/08/22 Status: Orderedloratadine 10 mg oral tablet See Instructions, TAKE 1 TABLET BY MOUTH DAILY IN THE MORNING, # 30 tablet, Refills 5, Tot. Refills 5, 12/24/21 14:55:00 EDT, Instructions Replace Required Details, Route to Pharmacy Electronically, [facility] [place]-[address], 168, cm, ... Start Date: 12/24/21 Status: [...] 9:03:00 EST, 04/29/22 9:02:00 EST, REC Powder, [facility] [place]-[address], Partial fill upon patient req... Start Date: 04/29/22 Stop Date: 05/29/22 Status: Orderedomeprazole 20 mg oral enteric coated capsule 1 capsule = 20 mg, By Mouth, Daily, # 30 capsule, 5 Refills, Maintenance, 12/05/21 16:01:00 EDT, EC Capsule, [facility] [place], [facility]-[id number], Partial fill upon patient request if the [...] 0 Refills, Maintenance, 04/02/22 13:48:00 EDT, Gel, [facility] [place], [facility]-[address], Partial fill upon patient request if the [...] shoulder Lives in long term Confirmed Active Obese class I Confirmed Active [...] Care Team PersonnelName: Keturah Ashby NP Position: [facility] PCO Associate Professional Member Role: PCP Address: Address: [address] [place] [address]- Care Team Related PersonsName: HIRAL EGAN Address: [place] [address] Name: DENISHA EGAN Address: [place] [address] Name: ELLA MUNGUIA Address: home [address] [place] [address] Name: HIEN ANGELES Address: home [place]KNOWN
--- OUTSIDE RECORDS SUMMARY | 2022-06-26 21:18 | XMS_ITS | Continuity of Care Document ---
:1990 Author Organization [facility] Address [address] [place] [address]- Care Team Providers Name Role Phone Dieog Ibarra Primary Care Physician Encounter [facility] Date(s): 09/16/20 - 10/16/20 [facility] [address] [place] [address] Allergies, Adverse Reactions, Alerts Substance Reaction Severity Status Risperdal Active Immunizations Given and Recorded Vaccine Date Status Refusal Reason influenza virus vaccine, inactivated1 07/03/19 Given 1Result Comment: [facility]# [id number] Medications benztropine 1 mg oral tablet 1 mg, 1, tablet, By Mouth, 2 times a day, # 60 tablet, Refills 3, Tot. Refills 3, Maintenance, 11/21/18 9:28:36 EDT, Route to Pharmacy Electronically, [id number], [facility]/pharmacy#[id number] Start Date: 11/21/18 Stop Date: 03/21/19 [...] 5 Refills, Maintenance, 06/04/20 9:18:00 EST, Capsule, [facility], To replace 50 mg capsules, 170, [...] 03/08/20 10:37:00 EDT, Route to Pharmacy Electronically, [facility], 170, cm, 02/22/20 20:33:00 EDT, Height, [...] 4 Refills, Maintenance, 09/19/20 13:00:00 EDT, Capsule, [facility] [place], 170, cm, 09/13/20 15:29:00 EDT, Height, 88.3, kg, 09/13/20 15:29:00 EDT, Dry Weight Start Date: 09/19/20 Status: Orderedloratadine 10 mg oral tablet 10 mg, 1, tablet, By Mouth, Daily, for 30 days, # 30 tablet, Refills 6, Tot. Refills 6, Hard Stop 10/23/20 10:07:00 EDT, 03/27/20 10:07:00 EDT, Route to Pharmacy Electronically, [facility], 170, cm, 02/22/20 20:33:00 EDT, Height, [...] 10/23/20 10:07:00 EDT, Route to Pharmacy Electronically, [facility], 170, cm, 09/02/20 15:24:00 EDT, Height,86.6, [...] Refills, Soft Stop, 03/21/20 14:01:00 EDT, Liquid, [facility], 300... Start Date: 03/21/20 Status: Orderedmagnesium citrate 8.85% oral liquid 150 mL = 8.725 Gm, By Mouth, Once, # 300 mL, 0 Refills, Soft Stop, 09/20/20 15:27:00 EDT, Liquid, [facility] #[id number], Partial fill upon patient request if the [...] Refills, Acute 08/03/23 11:00:00EST, 08/02/20 8:59:00 EST, [facility], 28, 1 patch Topically Daily,Instr:ROTATE APPLICATION [...] Stop 12/19/20 16:38:00 EDT, 09/17/20 16:38:00 EDT, [facility], 30, MIX & DISSOLVE 17GM... Start [...]
--- OUTSIDE RECORDS SUMMARY | 2022-06-26 21:18 | XMS_ITS | Continuity of Care Document ---
:1990 Author Organization [facility] Address [address] [place] [address]- Care Team Providers Name Role Phone Isma IZQUIERDO, Keturah Primary Care Physician Encounter [facility] Date(s): 02/24/22 - 03/03/22 [facility] [address] [place] [phone]- Encounter Diagnosis Developmental disability (Discharge Diagnosis) - 02/24/22 Intermittent explosive disorder in adult (Discharge Diagnosis) - 02/24/22 Bipolar disorder (Discharge Diagnosis) - 02/24/22 Attending Physician: Jennie Cruz NP Allergies, Adverse Reactions, Alerts Substance Reaction Severity Status Risperdal unkown Active Immunizations Given and Recorded Vaccine Date Status Refusal Reason SARS-CoV-2 (COVID-19) mRNA-1273 vaccine 06/09/21 Recorded SARS-CoV-2 (COVID-19) mRNA-1273 vaccine 04/17/21 Recorded influenza virus vaccine, inactivated 04/17/21 Recorded influenza virus vaccine, inactivated1 07/03/19 Given 1Result Comment: [facility]# [id number] Medications Ativan 2 mg oral tablet 1 [...] 0 Refills, Maintenance, 02/03/22 15:20:00 EDT, Suppository, [facility]-24293, Partial fill upon patient request if the prescri... Start Date: 02/03/22 Status: OrderedFLUoxetine 20 mg oral capsule 40 mg, 2, capsule, By Mouth, Daily, 2 capsules to equal 40 mg daily., # 60 capsule, Refills 5, Tot. Refills 5, Maintenance, 03/08/20 10:37:00 EDT, Route to Pharmacy Electronically, [facility], 170, cm, 02/22/20 20:33:00 EDT, Height, 80.9, kg, ... Start Date: 03/08/20 Status: Orderedglycerin adult rectal suppository 1 supp, Rectally, Daily, PRN for constipation, Please use once daily as needed for constipation, # 10 supp, 0 Refills, Acute 03/06/22 15:04:00 EDT, 02/17/22 15:04:00 EDT, Suppository, [facility]-00137, Partial fill upon patient reque... Start Date: 02/17/22 Stop Date: 03/06/22 Status: Orderedlidocaine 5% topical film 1 patch, Topically, Daily, PRN Pain , Mild, remove after 12 hours, # 30 patch, 3 Refills, Maintenance, 08/27/21 16:03:00 EDT, Film, [facility]- [address]17, Partial fill upon patient requestif the prescription is for a schedule II opioid d... Start Date: 08/27/21 Status: OrderedLinzess 145 mcg oral capsule 1 capsule, By Mouth, Daily in AM, # 30 capsule, 0 Refills, [facility] [id number], 168, cm, :41:00 EDT, Height, 85.8, kg, 04/07/21 14:21:00 EDT, Dry Weight Start Date: 01/08/22 Status: Orderedloratadine 10 mg oral tablet See Instructions, TAKE 1 TABLET BY MOUTH DAILY IN THE MORNING, # 30 tablet, Refills 5, Tot. Refills 5, 12/24/21 14:55:00 EDT, Instructions Replace Required Details, Route to Pharmacy Electronically, [facility]58767, 168, cm, ... Start Date: 12/24/21 Status: Orderedmagnesium citrate 8.85% oral liquid 17 grams, By Mouth, Once, Use PRN after four days of no bowel movement. Repeat after 24 hours if no BM. Call PCP after 24 hours if no BM after second dose, # 68 Gm, 5 Refills, Soft Stop, 08/07/21 13:25:00 EST, Liquid, [facility], 17 grams By Mo... Start Date: 08/07/21 Status: Orderedmagnesium citrate 8.85% oral liquid 17 grams, By Mouth, Once, Use PRN after four days of no bowel movement. Repeat after 24 hours if no BM. Call PCP after 24 hours if no BM after second dose, # 68 Gm, 1 Refills, Soft Stop, 02/04/22 15:33:00 EDT, Liquid, [facility]-00... Start Date: 02/04/22 Status: OrderedMelatonin 5 [...] Refills, Maintenance, 12/05/21 16:01:00 EDT, EC Capsule, [facility]-83775, Partial fill upon patient request if the prescription isfor a schedule II opioid drug., 168, cm, 11/20/21... Start Date: 12/05/21 Status: OrderedPeri-Colace 50 mg-8.6 mg oral tablet 2 tablet, By Mouth, Daily at bedtime, for 30 days, # 60 tablet, 5 Refills, Acute 05/19/22 10:38:00 EST, 11/20/21 10:38:00 EDT, Tablet, [facility]-62836, Partial fill upon patient request if the prescription is for a schedule II opioi... Start Date: 11/20/21 Stop Date: 05/19/22 Status: Orderedpolyethylene glycol 3350 oral powder for reconstitution See Instructions, MIX & DISSOLVE 17GM DOSE IN 4 TO 8 OUNCES OF WATER, DRINK THE SOLUTION ONCE A DAY NEEDED FOR CONSTIPATION, # 510 Gm, 2 Refills, Maintenance, 02/04/22 15:24:00 EDT, [facility]-31788, 30, MIX & DISSOLVE 17GM DOSE I... [...] Dates Health Clinical Infor mant Status Service Developmental Discharge 02/24/22 disability Diagnosis Intermittent Discharge 02/24/22 explosive disorder Diagnosis in adult Bipolar disorder Discharge 02/24/22 Diagnosis Vital Signs Most recent to oldest [Reference Range]: 1 Height 168 cm (02/24/22 4:14 PM) Weight 84.3 kg (02/24/22 4:14 PM) Oxygen Saturation [94-100 %] 98 % (02/24/22 4:14 PM) Pulse Rate [55-90 bpm] 87 bpm (02/24/22 4:14 PM) Body Mass Index [18.5-24.99 kg/m2] 29.87 kg/m2 *H* (02/24/22 4:14 PM) Blood Pressure [90-138/55-84 mm Hg] 124/84 mm Hg (02/24/22 4:14 PM) Temperature [96.8-100.4 DegF] 97.4 DegF (02/24/22 4:14 PM) Mode of Delivery (Oxygen) Room air (02/24/22 4:14 PM) Temperature Route Temporal (02/24/22 4:14 PM) Weight Obtained Via Standing scale (02/24/22 4:14 PM) Social History Social History Type Response Smoking Status Former smoker, quit more padmini n 30 days ago entered on: 03/11/20 Sex Implantable Device List Procedure Provider Procedure Date Device Type Site Repair Hernia Umbilical Ortega , Fifi Henrández 04/07/21 Unknown Umbilicus Laparoscopic Mes Device Serial Lot or Manufacturing Expiration Distinct MRI Implan table Assigning Identifier Number Batch Date Date Identification Safety Status Authority Number Code Unknown Unknown Unknown Unknown 01/01/23 Unknown Unknown Active Unknown Care Team PersonnelName: Keturah Ashby NP Address: [address] [place] [address]
--- OUTSIDE RECORDS SUMMARY | 2022-06-26 21:18 | XMS_ITS | Continuity of Care Document ---
:1990 Author Organization [facility] Address [address] [place] [address]- Care Team Providers Name Role Phone Isma IZQUIERDO, Keturah Primary Care Physician Encounter [facility] NBR [id number] Date(s): 05/16/21 - 06/15/21 [facility] [address] [place] [address]- Allergies, Adverse Reactions, Alerts Substance Reaction Severity Status Risperdal unkown Active Immunizations Given and Recorded Vaccine Date Status Refusal Reason influenza virus vaccine, inactivated1 07/03/19 Given 1Result Comment: [facility]# [id number] Medications calcium carbonate 500 mg (200 mg [...] 03/08/20 10:37:00 EDT, Route to Pharmacy Electronically, [facility], 170, cm, 02/22/20 20:33:00 EDT, Height, [...] 4 Refills, Maintenance, 03/26/21 16:53:00 EDT, Capsule, [facility], 168, cm, 03/04/21 13:36:00 EDT, Height, 83.3, kg, 10/24/20 17:15:00 EDT, DryWeight Start Date: 03/26/21 Status: Orderedloratadine 10 mg oral tablet See Instructions, TAKE 1 TABLET BY MOUTH DAILY, # 30 tablet, Refills 5, Tot. Refills 5, Maintenance,03/14/21 11:21:00 EDT, Instructions Replace Required Details, Route to Pharmacy Electronically, [facility], 168, cm, 03/04/21 13:36:00 EDT, Frederic... Start Date: 03/14/21 Status: Orderedmagnesium citrate 8.85% oral liquid 300 mL = 17.45 Gm, By Mouth, Once, Use PRN after four days of no bowel movement. Repeat after 24 horus if no BM. Call PCP after 24 hours if no BM after second dose, # 300 mL, 5 Refills, Soft Stop, 12/13/20 15:34:00 EDT, Liquid, [facility], 300... Start Date: 12/13/20 Status: OrderedMelatonin [...] 15:39:00 EST, 12/11/20 15:39:00 EDT, REC Powder, [facility], Partial fill uponpatient request if the [...] 12/11/20 15:40:00 EDT, Route to Pharmacy Electronically, [facility], Partial fill upon patient request if [...] MESH VENTRALIGHT ECHO CIR 4.5 - BARD ([id number]) 1 Bard Unknown JENNIFER: No Information Assigning Authority: FDA
--- OUTSIDE RECORDS SUMMARY | 2022-06-26 21:18 | XMS_ITS | Continuity of Care Document ---
:1990 Author Organization [facility] Address [address] [place] [address]- Care Team Providers Name Role Phone Diego Ibarra Primary Care Physician Encounter [facility] Date(s): 09/13/20 - 09/13/[address] [address]- Discharge Disposition: A-D/C Home Attending Physician: Ross Dacosta MD Admitting Physician: Ross Dacosta MD Referring Physician: Not on Staff, Referring MD Allergies, Adverse Reactions, Alerts Substance Reaction Severity Status Risperdal Active Immunizations Given and Recorded Vaccine Date Status Refusal Reason influenza virus vaccine, inactivated1 07/03/19 Given 1Result Comment: [facility]# [id number] Medications benztropine 1 mg oral tablet 1 mg, 1, tablet, By Mouth, 2 times a day, # 60 tablet, Refills 3, Tot. Refills 3, Maintenance, 11/21/18 9:28:36 EDT, Route to Pharmacy Electronically, [id number], [facility]/pharmacy#[id number] Start Date: 11/21/18 Stop [...] 5 Refills, Maintenance, 06/04/20 9:18:00 EST, Capsule, [facility], To replace 50 mg capsules, 170, cm, 04/01/20 14:07:00 EDT, Height, 83.1, kg, 03/27/20 18:25:00 EDT... Start Date: 06/04/20 Status: OrderedDulcolax 10 mg rectal suppository 1 supp = 10 mg, Rectally, Daily, PRN for constipation, # 10 supp, 0 Refills, Maintenance, 09/13/20 13:08:00 EDT, Suppository, [facility], Partial fill upon patient request if the prescription is for a schedule II opioid drug., 170, cm, 09/13/20 1... Start Date: 09/13/20 Status: OrderedFLUoxetine 20 mg oral capsule 40 mg, 2, capsule, By Mouth, Daily, 2 capsules to equal 40 mg daily., # 60 capsule, Refills 5, Tot. Refills 5, Maintenance, 03/08/20 10:37:00 EDT, Route to Pharmacy Electronically, [facility], 170, cm, 02/22/20 20:33:00 EDT, Height, [...] 4 Refills, Maintenance, 09/27/19 14:06:00 EDT, Capsule, [facility] #[id number], 169, cm, 07/03/19 16:03:00 EST, Height Start Date: 09/27/19 Status: Orderedloratadine 10 mg oral tablet 10 mg, 1, tablet, By Mouth, Daily, for 30 days, # 30 tablet, Refills 6, Tot. Refills 6, Hard Stop 10/23/20 10:07:00 EDT, 03/27/20 10:07:00 EDT, Route to Pharmacy Electronically, [facility], 170, cm, 02/22/20 20:33:00 EDT, Height, [...] 10/23/20 10:07:00 EDT, Route to Pharmacy Electronically, [facility], 170, cm, 09/02/20 15:24:00 EDT, Height,86.6, [...] Refills, Soft Stop, 03/21/20 14:01:00 EDT, Liquid, [facility], 300... Start Date: 03/21/20 Status: OrderedMelatonin [...] 3 Refills, Maintenance, 09/04/20 8:32:00 EDT, Capsule, [facility], Partial fill upon patient request if the prescriptio... Start Date: 09/04/20 Status: OrderedMultivitamin Daily, 0 Refills, Maintenance, 06/21/18 14:04:37 EST Start Date: 06/21/18 Status: OrderedNicotine 7 mg/24 hour patch 1 patch, Topically, Daily, ROTATE APPLICATION SITES., # 28 patch, 1 Refills, Acute 08/03/23 11:00:00EST, 08/02/20 8:59:00 EST, [facility], 28, 1 patch Topically Daily,Instr:ROTATE APPLICATION [...] CONSTIPATION, # 510 Gm, 2 Refills, Acute, [facility], 30, MIX & DISSOLVE 17GM DOSE [...] Exam Date Time Procedure Performing Provider Status 09/13/20 2:04 PM Abdomen AP Dalton Saavedra; Paola (Verified) Notes:(Abdomen AP) Reason For Exam: PainRESULT: XR Abdomen AP XR Abdomen AP INDICATION/CLINICAL QUESTION: Hx of Present Illness: pt has been refusing to take miralax recently and now has been constipated, has has 2 watery stools; Reason: Pain; Clinical Question(s): Obstruction; Special Instructions: Flat. Obstruction COMPARISON: Abdomen radiographs dated 03/15/2020. FINDINGS: Large amount of stool throughout the colon but the bowel gas pattern is nonobstructive. No evidence of pneumoperitoneum, although sensitivity is decreased on supine technique. No organomegaly, masses or calcifications. No acute bone findings. IMPRESSION: Large amount of stool throughout the colon. Nonobstructive bowel gas pattern. WSN: [id number] Ordering Physician: Ross Dacosta Dictated By: Rere Cobos MD Dictated Date/Time: 09/13/20 2:05 pm Reviewed By: Rere Cobos MD Signed By: Rere Cobos MD Signed Date/Time: 09/13/20 2:05 pm Transcribed By: LARISA Transcribed Date/Time: 09/13/20 2:04 pm Vital Signs Most recent to oldest [Reference Range]: 1 2 Height 170 cm 170 cm (09/13/20 3:29 PM) (09/13/20 12:40 PM) Weight 88.3 kg 88.3 kg (09/13/20 3:29 PM) (09/13/20 12:40 PM) Oxygen Saturation [94-100 %] 98 % 97 % (09/13/20 3:29 PM) (09/13/20 12:40 PM) Pulse Rate [55-90 bpm] 76 bpm 81 bpm (09/13/20 3:29 PM) (09/13/20 12:40 PM) Body Mass Index [18.5-24.99] 30.55 *>HHI* (09/13/20 3:29 PM) Blood Pressure [90-138/55-84 mm Hg] 110/83 mm Hg 112/ 70 mm Hg (09/13/20 3:29 PM) (09/13/20 12:40 PM) Respiratory Rate [16-30 br/min] 16 br/min 16 br/mi n (09/13/20 3:29 PM) (09/13/20 12:40 PM) Temperature [96.8-100.4 DegF] 98.5 DegF (09/13/20 12:40 PM) Mode of Delivery (Oxygen) Room air Room air (09/13/20 3:29 PM) (09/13/20 12:40 PM) Temperature Route Oral (09/13/20 12:40 PM) Dry Weight 88.3 kg 88.3 kg (09/13/20 3:29 PM) (09/13/20 12:40 PM) Weight Obtained Via Standing scale (09/13/20 12:40 PM) Social History Social History Type Response Smoking Status Former smoker, quit more padmini n 30 days ago entered on: 03/11/20 Sex
--- OUTSIDE RECORDS SUMMARY | 2022-06-26 21:18 | XMS_ITS | Continuity of Care Document ---
:1990 Author Organization [facility] Address [address] [place] [address]- Care Team Providers Name Role Phone Diego Ibarra Primary Care Physician Encounter [facility] Date(s): 06/20/20 - 06/20/[address] [address]- Discharge Disposition: A-D/C Home Attending Physician: Ross Merrill MD Admitting Physician: Ross Merrill MD Referring Physician: Not on Staff, Referring MD Allergies, Adverse Reactions, Alerts Substance Reaction Severity Status Risperdal Active Immunizations Given and Recorded Vaccine Date Status Refusal Reason influenza virus vaccine, inactivated1 07/03/19 Given 1Result Comment: [facility]# 11618-527-46 Medications benztropine 1 mg oral tablet 1 mg, 1, tablet, By Mouth, 2 times a day, # 60 tablet, Refills 3, Tot. Refills 3, Maintenance, 11/21/18 9:28:36 EDT, Route to Pharmacy Electronically, [id number], [facility]/pharmacy#[id number] Start Date: 11/21/18 Stop [...] 03/08/20 10:37:00 EDT, Route to Pharmacy Electronically, [facility], 170, cm, 02/22/20 20:33:00 EDT, Height, [...] 4 Refills, Maintenance, 09/27/19 14:06:00 EDT, Capsule, [facility][id number], 169, cm, 07/03/19 16:03:00 EST, Height Start Date: 09/27/19 Status: Orderedloratadine 10 mg oral tablet 10 mg, 1, tablet, By Mouth, Daily, # 30 tablet, Refills 6, Tot. Refills 6, Maintenance, 03/27/20 10:07:00 EDT, Route to Pharmacy Electronically, [facility], 170, cm, 02/22/20 20:33:00 EDT, Height,80.9, [...] Refills, Soft Stop, 03/21/20 14:01:00 EDT, Liquid, [facility], 300... Start Date: 03/21/20 Status: OrderedMelatonin 5 mg oral tablet 1 tablet = 5 mg, By Mouth, Daily at bedtime, 0 Refills, Maintenance, 06/21/18 14:05:10 EST Start Date: 06/21/18 Status: OrderedMultivitamin Daily, 0 Refills, Maintenance, 06/21/18 14:04:37 EST Start Date: 06/21/18 Status: OrderedNicotine 7 mg/24 hour patch 1 patch, Topically, Daily, ROTATE APPLICATION SITES., # 28 patch, 1 Refills, Acute, 05/28/20 9:03:00EST, [facility], 28, APPLY ONE PATCH TOPICALLY DAILY ROTATE APPLICATION SITES, 170, cm, 04/01/20 14:07:00 EDT, Height, 83.1, kg, 03/27/20 18:25:0... Start Date: 05/28/20 Status: Orderedolanzapine 15 mg oral tablet 1 [...] Exam Date Time Procedure Performing Provider Status 06/20/20 11:17 AM Chest Portable Robin Thais; Paola (Verified) Notes:(Chest Portable) Reason For Exam: Shortness of BreathRESULT: Chest Portable Chest Portable Hx of Present Illness: 2-3 days of cough, diarrhea, no fevers. Clinical Question(s): Pneumonia COMPARISON: None. FINDINGS: LUNGS AND PLEURA: Clear lungs. Normal pulmonary vascularity. No pleural effusion. No pneumothorax. HEART, MEDIASTINUM AND RADHA: Heart is normal in size. Normal upper mediastinal and hilar contour. BONES AND SOFT TISSUES: No acute abnormality. IMPRESSION: No acute abnormality. I have personally reviewed the images and I agree with this report. WSN: [id number] Ordering Physician: Ross Merrill Dictated By: Tawanda Rojas MD Dictated Date/Time: 06/20/20 11:21 a Reviewed By: Huma Gonsales MD Signed By: Huma Gonsales MD Signed Date/Time: 06/20/20 11:26 am Transcribed By: LARISA Transcribed Date/Time: 06/20/20 11:19 am Vital Signs Most recent to oldest [Reference Range]: 1 Height 170 cm (06/20/20 10:22 AM) Weight 85.5 kg (06/20/20 10:22 AM) Oxygen Saturation [94-100 %] 98 % (06/20/20 10:22 AM) Pulse Rate [55-90 bpm] 87 bpm (06/20/20 10:22 AM) Blood Pressure [90-138/55-84 mm Hg] 117/77 mm Hg (06/20/20 10:22 AM) Respiratory Rate [16-30 br/min] 16 br/min (06/20/20 10:22 AM) Temperature [96.8-100.4 DegF] 98.4 DegF (06/20/20 10:22 AM) Mode of Delivery (Oxygen) Room air (06/20/20 10:22 AM) Dry Weight 85.5 kg (06/20/20 10:22 AM) Weight Obtained Via Standing scale (06/20/20 10:22 AM) Dry Weight Obtained Via Standing scale (06/20/20 10:22 AM) Social History Social History Type Response Smoking Status Former smoker, quit more padmini n 30 days ago entered on: 03/11/20 Sex
--- OUTSIDE RECORDS SUMMARY | 2022-06-26 21:18 | XMS_ITS | Continuity of Care Document ---
:1990 Author Organization [facility] Address [address] [place] [address]- Care Team Providers Name Role Phone Diego Ibarra Primary Care Phys[id number] Date(s[facility] 09/02/[facility] - 09/09/20 [facility] [address] [place] [address]- Attending Physician: Leela Ordoñez MD Allergies, Adverse Reactions, Alerts Substance Reaction Severity Status Risperdal Active Immunizations Given and Recorded Vaccine Date Status Refusal Reason influenza virus vaccine, inactivated1 07/03/19 Given 1Result Comment: [facility]# [id number] Medications benztropine 1 mg oral tablet 1 mg, 1, tablet, By Mouth, 2 times a day, # 60 tablet, Refills 3, Tot. Refills 3, Maintenance, 11/21/18 9:28:36 EDT, Route to Pharmacy Electronically, [id number], [facility]/pharmacy#[id number] Start Date: 11/21/18 Stop Date: 03/21/19 [...] 03/08/20 10:37:00 EDT, Route to Pharmacy Electronically, [facility], 170, cm, 02/22/20 20:33:00 EDT, Height, [...] 4 Refills, Maintenance, 09/27/19 14:06:00 EDT, Capsule, [facility] #[id number], 169, cm, 07/03/19 16:03:00 EST, Height Start Date: 09/27/19 Status: Orderedloratadine 10 mg oral tablet 10 mg, 1, tablet, By Mouth, Daily, for 30 days, # 30 tablet, Refills 6, Tot. Refills 6, Hard Stop 10/23/20 10:07:00 EDT, 03/27/20 10:07:00 EDT, Route to Pharmacy Electronically, [facility], 170, cm, 02/22/20 20:33:00 EDT, Height, [...] 10/23/20 10:07:00 EDT, Route to Pharmacy Electronically, [facility], 170, cm, 09/02/20 15:24:00 EDT, Height,86.6, [...] Refills, Soft Stop, 03/21/20 14:01:00 EDT, Liquid, [facility], 300... Start Date: 03/21/20 Status: OrderedMelatonin [...] 3 Refills, Maintenance, 09/04/20 8:32:00 EDT, Capsule, [facility], Partial fill upon patient request if the prescriptio... Start Date: 09/04/20 Status: OrderedMultivitamin Daily, 0 Refills, Maintenance, 06/21/18 14:04:37 EST Start Date: 06/21/18 Status: OrderedNicotine 7 mg/24 hour patch 1 patch, Topically, Daily, ROTATE APPLICATION SITES., # 28 patch, 1 Refills, Acute 08/03/23 11:00:00EST, 08/02/20 8:59:00 EST, [facility], 28, 1 patch Topically Daily,Instr:ROTATE APPLICATION [...] CONSTIPATION, # 510 Gm, 2 Refills, Acute, [facility], 30, MIX & DISSOLVE 17GM DOSE [...] oldest [Reference Range]: 1 Height 170 cm (09/02/20 3:24 PM) Social History Social History Type Response Smoking Status Former smoker, quit more padmini n 30 days ago entered on: 03/11/20 Sex
--- OUTSIDE RECORDS SUMMARY | 2022-06-26 21:18 | XMS_ITS | Continuity of Care Document ---
:1990 Author Organization [facility] Address [address] [place] [address]- Care Team Providers Name Role Phone Isma IZQUIERDO, Keturah Primary Care Physician Encounter [facility] NBR [id number] Date(s): 01/22/21 - 02/21/21 [facility] [address] [place] [address]- Allergies, Adverse Reactions, Alerts Substance Reaction Severity Status Risperdal Active Immunizations Given and Recorded Vaccine Date Status Refusal Reason influenza virus vaccine, inactivated1 07/03/19 Given 1Result Comment: [facility]# [id number] Medications benztropine 1 mg oral tablet 1 mg, 1, tablet, By Mouth, 2 times a day, # 60 tablet, Refills 3, Tot. Refills 3, Maintenance, 11/21/18 9:28:36 EDT, Route to Pharmacy Electronically, [id number], [facility]/pharmacy#[id number] Start Date: 11/21/18 Stop Date: 03/21/19 [...] 4 Refills, Maintenance, 09/19/20 13:00:00 EDT, Capsule, [facility], 170, cm, 09/13/20 15:29:00 EDT, Height, 88.3, [...] 10/23/20 10:07:00 EDT, Route to Pharmacy Electronically, [facility], 170, cm, 09/02/20 15:24:00 EDT, Height,86.6, [...] Refills, Soft Stop, 12/13/20 15:34:00 EDT, Liquid, [facility], 300... Start Date: 12/13/20 Status: OrderedMelatonin [...] 15:39:00 EST, 12/11/20 15:39:00 EDT, REC Powder, [facility], Partial fill uponpatient request if the [...] Gm, 2 Refills, Maintenance, 10/30/20 11:19:00 EDT, [facility], 30, MIX & DISSOLVE 17GM DOSE [...] 12/11/20 15:40:00 EDT, Route to Pharmacy Electronically, [facility], Partial fill upon patient request if [...]
--- OUTSIDE RECORDS SUMMARY | 2022-06-26 21:18 | XMS_ITS | Continuity of Care Document ---
:1990 Author Organization [facility] Address [address] [place] [address]- Care Team Providers Name Role Phone Diego Ibarra Primary Care Physician Encounter [facility] Date(s): 08/01/20 - 08/31/20 [facility] [address] [place], [place] [address] Allergies, Adverse Reactions, Alerts Substance Reaction Severity Status Risperdal Active Immunizations Given and Recorded Vaccine Date Status Refusal Reason influenza virus vaccine, inactivated1 07/03/19 Given 1Result Comment: [facility][NOTE 3]# [id number] Medications benztropine 1 mg oral tablet 1 mg, 1, tablet, By Mouth, 2 times a day, # 60 tablet, Refills 3, Tot. Refills 3, Maintenance, 11/21/18 9:28:36 EDT, Route to Pharmacy Electronically, [id number], [facility]/pharmacy#[id number] Start Date: 11/21/18 Stop [...] 5 Refills, Maintenance, 06/04/20 9:18:00 EST, Capsule, [facility], To replace 50 mg capsules, 170, cm, 04/01/20 14:07:00 EDT, Height, 83.1, kg, 03/27/20 18:25:00 EDT... Start Date: 06/04/20 Status: OrderedFLUoxetine 20 mg oral capsule 40 mg, 2, capsule, By Mouth, Daily, 2 capsules to equal 40 mg daily., # 60 capsule, Refills 5, Tot. Refills 5, Maintenance, 03/08/20 10:37:00 EDT, Route to Pharmacy Electronically, [facility], 170, cm, 02/22/20 20:33:00 EDT, Height, [...] 4 Refills, Maintenance, 09/27/19 14:06:00 EDT, Capsule, [facility] #[id number], 169, cm, 07/03/19 16:03:00 EST, Height Start Date: 09/27/19 Status: Orderedloratadine 10 mg oral tablet 10 mg, 1, tablet, By Mouth, Daily, # 30 tablet, Refills 6, Tot. Refills 6, Maintenance, 03/27/20 10:07:00 EDT, Route to Pharmacy Electronically, [facility], 170, cm, 02/22/20 20:33:00 EDT, Height,80.9, [...] Refills, Soft Stop, 03/21/20 14:01:00 EDT, Liquid, [facility], 300... Start Date: 03/21/20 Status: OrderedMelatonin [...] Refills, Acute 08/03/23 11:00:00EST, 08/02/20 8:59:00 EST, [facility], 28, 1 patch Topically Daily,Instr:ROTATE APPLICATION [...]
--- OUTSIDE RECORDS SUMMARY | 2022-06-26 21:19 | XMS_ITS | Continuity of Care Document ---
:1990 Author Organization [facility] Address [address] [place] [address]- Care Team Providers Name Role Phone Anthony IZQUIERDO, Jennie Bansal Primary Care Physician [id number] Date(s): 07/03/19 - 07/13/19 [facility] [address] [place] [address]- Attending Physician: Bel Galloway Admitting Physician: Bel Galloway Referring Physician: AdmtrBel Allergies, Adverse Reactions, Alerts Substance Reaction Severity Status Risperdal Active Immunizations Given and Recorded Vaccine Date Status Refusal Reason influenza virus vaccine, inactivated1 07/03/19 Given 1Result Comment: [facility]# [id number] Medications benztropine 1 mg oral tablet 1 mg, 1, tablet, By Mouth, 2 times a day, # 60 tablet, Refills 3, Tot. Refills 3, Maintenance, 11/21/18 9:28:36 EDT, Route to Pharmacy Electronically, [id number], [facility]/pharmacy#[id number] Start Date: 11/21/18 Stop Date: 03/21/19 [...] 11/21/18 9:26:51 EDT, Route to Pharmacy Electronically, [id number], [facility]/pharmacy #[id number] Start Date: 11/21/18 Status: Orderedloratadine 10 mg oral tablet 10 mg, 1, tablet, By Mouth, Daily, # 30 tablet, Refills 6, Tot. Refills 6, Maintenance, 12/26/18 11:49:33 EDT, Route to Pharmacy Electronically, NCPDP_ID- [id number], [facility] - [address] [place] [address] Start Date: 12/26/18 Stop Date: 07/24/19 Status: [...]
--- OUTSIDE RECORDS SUMMARY | 2022-06-26 21:19 | XMS_ITS | Continuity of Care Document ---
:1990 Author Organization [facility] Address [address] [place] [address]- Care Team Providers Name Role Phone Anthony IZQUIERDO, Jennie Bansal Primary Care Physician Encounter [facility] NBR [id number] Date(s): 03/30/19 - 07/28/19 [facility] [address] [place] [address]- Attending Physician: Jennie Cruz NP Allergies, Adverse Reactions, Alerts Substance Reaction Severity Status Risperdal Active Immunizations Given and Recorded Vaccine Date Status Refusal Reason influenza virus vaccine, inactivated1 07/03/19 Given 1Result Comment: [facility]# 12821-298-04 Medications benztropine 1 mg oral tablet 1 mg, 1, tablet, By Mouth, 2 times a day, # 60 tablet, Refills 3, Tot. Refills 3, Maintenance, 11/21/18 9:28:36 EDT, Route to Pharmacy Electronically, [id number], [facility]/pharmacy#[id number] Start Date: 11/21/18 Stop Date: [...] 11/21/18 9:26:51 EDT, Route to Pharmacy Electronically, [id number], [facility]/pharmacy #[id number] Start Date: 11/21/18 Status: Orderedloratadine 10 mg oral tablet 10 mg, 1, tablet, By Mouth, Daily, # 30 tablet, Refills 6, Tot. Refills 6, Maintenance, 12/26/18 11:49:33 EDT, Route to Pharmacy Electronically, NCPDP_ID- [id number], [facility] [address] [place] [address] Start Date: 12/26/18 Stop Date: 07/24/19 Status: [...]
--- OUTSIDE RECORDS SUMMARY | 2022-06-26 21:19 | XMS_ITS | Continuity of Care Document ---
:1990 Author Organization [facility] Address [address] [place] [address]- Care Team Providers Name Role Phone Isma IZQUIERDO, Keturah Primary Care Physician Encounter [facility] NBR [id number] Date(s): 04/29/21 - 05/29/21 [facility] [address] [place] [id number]- Allergies, Adverse Reactions, Alerts Substance Reaction Severity Status Risperdal unkown Active Immunizations Given and Recorded Vaccine Date Status Refusal Reason influenza virus vaccine, inactivated1 07/03/19 Given 1Result Comment: [facility]# [id number] Medications calcium carbonate 500 mg (200 mg [...] 03/08/20 10:37:00 EDT, Route to Pharmacy Electronically, [facility], 170, cm, 02/22/20 20:33:00 EDT, Height, [...] 4 Refills, Maintenance, 03/26/21 16:53:00 EDT, Capsule, [facility], 168, cm, 03/04/21 13:36:00 EDT, Height, 83.3, kg, 10/24/20 17:15:00 EDT, DryWeight Start Date: 03/26/21 Status: Orderedloratadine 10 mg oral tablet See Instructions, TAKE 1 TABLET BY MOUTH DAILY, # 30 tablet, Refills 5, Tot. Refills 5, Maintenance,03/14/21 11:21:00 EDT, Instructions Replace Required Details, Route to Pharmacy Electronically, [facility], 168, cm, 03/04/21 13:36:00 EDT, Frederic... Start Date: 03/14/21 Status: Orderedmagnesium citrate 8.85% oral liquid 300 mL = 17.45 Gm, By Mouth, Once, Use PRN after four days of no bowel movement. Repeat after 24 horus if no BM. Call PCP after 24 hours if no BM after second dose, # 300 mL, 5 Refills, Soft Stop, 12/13/20 15:34:00 EDT, Liquid, [facility], 300... Start Date: 12/13/20 Status: OrderedMelatonin [...] 15:39:00 EST, 12/11/20 15:39:00 EDT, REC Powder, [facility], Partial fill uponpatient request if the [...] 12/11/20 15:40:00 EDT, Route to Pharmacy Electronically, [facility], Partial fill upon patient request if [...] MESH VENTRALIGHT ECHO CIR 4.5 - BARD ([id number]) 1 Bard Unknown JENNIFER: No Information Assigning Authority: FDA
--- OUTSIDE RECORDS SUMMARY | 2022-06-26 21:19 | XMS_ITS | Continuity of Care Document ---
:1990 Author Organization [facility] Address [address] [place] [address]- Care Team Providers Name Role Phone Diego Ibarra Primary Care Physician Encounter [facility] Date(s): 09/04/20 - 09/11/20 [facility] [address] [place] [address] Attending Physician: Diego Ibarra Allergies, Adverse Reactions, Alerts Substance Reaction Severity Status Risperdal Active Immunizations Given and Recorded Vaccine Date Status Refusal Reason influenza virus vaccine, inactivated1 07/03/19 Given 1Result Comment: [facility]# [id number] Medications benztropine 1 mg oral tablet 1 mg, 1, tablet, By Mouth, 2 times a day, # 60 tablet, Refills 3, Tot. Refills 3, Maintenance, 11/21/18 9:28:36 EDT, Route to Pharmacy Electronically, [id number], [facility]/pharmacy#[id number] Start Date: 11/21/18 [...] 03/08/20 10:37:00 EDT, Route to Pharmacy Electronically, [facility], 170, cm, 02/22/20 20:33:00 EDT, Height, [...] 4 Refills, Maintenance, 09/27/19 14:06:00 EDT, Capsule, [facility] #[id number], 169, cm, 07/03/19 16:03:00 EST, Height Start Date: 09/27/19 Status: Orderedloratadine 10 mg oral tablet 10 mg, 1, tablet, By Mouth, Daily, for 30 days, # 30 tablet, Refills 6, Tot. Refills 6, Hard Stop 10/23/20 10:07:00 EDT, 03/27/20 10:07:00 EDT, Route to Pharmacy Electronically, [facility], 170, cm, 02/22/20 20:33:00 EDT, Height, [...] 10/23/20 10:07:00 EDT, Route to Pharmacy Electronically, [facility], 170, cm, 09/02/20 15:24:00 EDT, Height,86.6, [...] Refills, Soft Stop, 03/21/20 14:01:00 EDT, Liquid, [facility], 300... Start Date: 03/21/20 Status: OrderedMelatonin [...] 3 Refills, Maintenance, 09/04/20 8:32:00 EDT, Capsule, [facility], Partial fill upon patient request if the prescriptio... Start Date: 09/04/20 Status: OrderedMultivitamin Daily, 0 Refills, Maintenance, 06/21/18 14:04:37 EST Start Date: 06/21/18 Status: OrderedNicotine 7 mg/24 hour patch 1 patch, Topically, Daily, ROTATE APPLICATION SITES., # 28 patch, 1 Refills, Acute 08/03/23 11:00:00EST, 08/02/20 8:59:00 EST, [facility], 28, 1 patch Topically Daily,Instr:ROTATE APPLICATION [...] CONSTIPATION, # 510 Gm, 2 Refills, Acute, [facility], 30, MIX & DISSOLVE 17GM DOSE [...] oldest [Reference Range]: 1 Height 170 cm (09/04/20 8:04 AM) Social History Social History Type Response Smoking Status Former smoker, quit more padmini n 30 days ago entered on: 03/11/20 Sex
--- OUTSIDE RECORDS SUMMARY | 2022-06-26 21:19 | XMS_ITS | Continuity of Care Document ---
:1990 Author Organization [facility] Address [address] [place] [address]- Care Team Providers Name Role Phone Diego Ibarra Primary Care Physician Encounter [facility] Date(s): 03/08/20 - 04/07/20 [facility] [address] [place] [address]- Allergies, Adverse Reactions, Alerts Substance Reaction Severity Status Risperdal Active Immunizations Given and Recorded Vaccine Date Status Refusal Reason influenza virus vaccine, inactivated1 07/03/19 Given 1Result Comment: [facility]# [id number] Medications benztropine 1 mg oral tablet 1 mg, 1, tablet, By Mouth, 2 times a day, # 60 tablet, Refills 3, Tot. Refills 3, Maintenance, 11/21/18 9:28:36 EDT, Route to Pharmacy Electronically, [id number], [facility]/pharmacy#[id number] Start Date: 11/21/18 Stop Date: [...] 03/08/20 10:37:00 EDT, Route to Pharmacy Electronically, [facility], 170, cm, 02/22/20 20:33:00 EDT, Height, [...] 4 Refills, Maintenance, 09/27/19 14:06:00 EDT, Capsule, [facility] #[id number], 169, cm, 07/03/19 16:03:00 EST, Height Start Date: 09/27/19 Status: Orderedloratadine 10 mg oral tablet 10 mg, 1, tablet, By Mouth, Daily, # 30 tablet, Refills 6, Tot. Refills 6, Maintenance, 03/27/20 10:07:00 EDT, Route to Pharmacy Electronically, [facility], 170, cm, 02/22/20 20:33:00 EDT, Height,80.9, [...] Refills, Soft Stop, 03/21/20 14:01:00 EDT, Liquid, [facility], 300... Start Date: 03/21/20 Status: OrderedMelatonin [...] 11:01:00 EST, 02/02/20 11:01:00 EDT, REC Powder, [facility], 17 Gm By Mouth Daily,x30 days,Instr:dissolve in w... Start Date: 02/02/20 Stop Date: 05/02/20 Status: OrderedMultivitamin Daily, 0 Refills, Maintenance, 06/21/18 14:04:37 EST Start Date: 06/21/18 Status: OrderedNicotine 7 mg/24 hour patch 1 patch, Topically, Daily, ROTATE APPLICATION SITES., # 28 patch, 1 Refills, Acute, 03/29/20 11:48:00 EDT, [facility], 28, APPLY ONE PATCH TOPICALLY DAILY [...]
--- OUTSIDE RECORDS SUMMARY | 2022-06-26 21:19 | XMS_ITS | Continuity of Care Document ---
:1990 Author Organization [facility] Address [address] [place] [address]- Care Team Providers Name Role Phone Isma IZQUIERDO, Keturah Primary Care Physician Encounter [facility] Date(s): 03/26/21 - 04/25/21 [facility] [address] [place] [address] [place] Allergies, Adverse Reactions, Alerts Substance Reaction Severity Status Risperdal unkown Active Immunizations Given and Recorded Vaccine Date Status Refusal Reason influenza virus vaccine, inactivated1 07/03/19 Given 1Result Comment: [facility]# [id number] Medications calcium carbonate 500 mg (200 mg [...] 03/08/20 10:37:00 EDT, Route to Pharmacy Electronically, [facility], 170, cm, 02/22/20 20:33:00 EDT, Height, [...] Replace Required Details, Route to Pharmacy Electronically, [facility], 168, cm, 03/04/21 13:36:00 EDT, Heigh... Start Date: 03/14/21 Status: Orderedmagnesium citrate 8.85% oral liquid 300 mL = 17.45 Gm, By Mouth, Once, Use PRN after four days of no bowel movement. Repeat after 24 horus if no BM. Call PCP after 24 hours if no BM after second dose, # 300 mL, 5 Refills, Soft Stop, 12/13/20 15:34:00 EDT, Liquid, [facility], 300... Start Date: 12/13/20 Status: OrderedMelatonin [...] 15:39:00 EST, 12/11/20 15:39:00 EDT, REC Powder, [facility], Partial fill uponpatient request if the [...] MESH VENTRALIGHT ECHO CIR 4.5 - BARD ([id number]) 1 Bard Unknown JENNIFER: No Information Assigning Authority: FDA
--- OUTSIDE RECORDS SUMMARY | 2022-06-26 21:19 | XMS_ITS | Continuity of Care Document ---
:1990 Author Organization [facility] Address [address] [place] [address]- Care Team Providers Name Role Phone Diego Ibarra Primary Care Physician Encounter [facility] Date(s): 03/06/20 - 04/05/20 [facility] [address] [place] [address]- Allergies, Adverse Reactions, Alerts Substance Reaction Severity Status Risperdal Active Immunizations Given and Recorded Vaccine Date Status Refusal Reason influenza virus vaccine, inactivated1 07/03/19 Given 1Result Comment: [facility]# [id number] Medications benztropine 1 mg oral tablet 1 mg, 1, tablet, By Mouth, 2 times a day, # 60 tablet, Refills 3, Tot. Refills 3, Maintenance, 11/21/18 9:28:36 EDT, Route to Pharmacy Electronically, [id number], [facility]/pharmacy#[id number] Start Date: 11/21/18 Stop Date: [...] 03/08/20 10:37:00 EDT, Route to Pharmacy Electronically, [facility], 170, cm, 02/22/20 20:33:00 EDT, Height, [...] 4 Refills, Maintenance, 09/27/19 14:06:00 EDT, Capsule, [facility][id number], 169, cm, 07/03/19 16:03:00 EST, Height Start Date: 09/27/19 Status: Orderedloratadine 10 mg oral tablet 10 mg, 1, tablet, By Mouth, Daily, # 30 tablet, Refills 6, Tot. Refills 6, Maintenance, 03/27/20 10:07:00 EDT, Route to Pharmacy Electronically, [facility], 170, cm, 02/22/20 20:33:00 EDT, Height,80.9, [...] Refills, Soft Stop, 03/21/20 14:01:00 EDT, Liquid, [facility], 300... Start Date: 03/21/20 Status: OrderedMelatonin [...] 11:01:00 EST, 02/02/20 11:01:00 EDT, REC Powder, [facility], 17 Gm By Mouth Daily,x30 days,Instr:dissolve in w... Start Date: 02/02/20 Stop Date: 05/02/20 Status: OrderedMultivitamin Daily, 0 Refills, Maintenance, 06/21/18 14:04:37 EST Start Date: 06/21/18 Status: OrderedNicotine 7 mg/24 hour patch 1 patch, Topically, Daily, ROT[employer] APPLICATION SITES., # 28 patch, 1 Refills, Acute, 03/29/20 11:48:00 EDT, [facility], 28, APPLY ONE PATCH TOPICALLY DAILY [...]
--- OUTSIDE RECORDS SUMMARY | 2022-06-26 21:19 | XMS_ITS | Continuity of Care Document ---
:1990 Author Organization [facility] Address [address] [place] [address]- Care Team Providers Name Role Phone Diego Ibarra Primary Care Physician Encounter [facility] Date(s): 03/15/20 - 03/15/[address] [address]- [facility] Discharge Disposition: A-D/C Home Attending Physician: Madhu Childers MD Admitting Physician: Madhu Childers MD Referring Physician: Not on Staff, Referring MD Allergies, Adverse Reactions, Alerts Substance Reaction Severity Status Risperdal Active Immunizations Given and Recorded Vaccine Date Status Refusal Reason influenza virus vaccine, inactivated1 07/03/19 Given 1Result Comment: [facility]# [id number] Medications benztropine 1 mg oral tablet 1 mg, 1, tablet, By Mouth, 2 times a day, # 60 tablet, Refills 3, Tot. Refills 3, Maintenance, 11/21/18 9:28:36 EDT, Route to Pharmacy Electronically, [id number], [facility]/pharmacy#[id number] Start Date: 11/21/18 [...] 10:37:00 EDT, Route to Pharmacy Electronically, [facility], 170, cm, 02/22/20 20:33:00 EDT, Height, [...] 4 Refills, Maintenance, 09/27/19 14:06:00 EDT, [id number], 169, cm, 07/03/19 16:03:00 EST, Height Start Date: 09/27/19 Status: Orderedloratadine 10 mg oral tablet 10 mg, 1, tablet, By Mouth, Daily, # 30 tablet, Refills 6, Tot. Refills 6, Maintenance, 03/27/20 10:07:00 EDT, Route to Pharmacy Electronically, [facility], 170, cm, 02/22/20 20:33:00 EDT, Height,80.9, [...] 08/30/19 10:07:00 EDT, Route to Pharmacy Electronically, [facility] #[id number], 169, cm, 07/03/19 16:03:00 EST, Height Start [...] 11:01:00 EST, 02/02/20 11:01:00 EDT, REC Powder, [facility], 17 Gm By Mouth Daily,x30 days,Instr:dissolve in w... Start Date: 02/02/20 Stop Date: 05/02/20 Status: OrderedMultivitamin Daily, 0 Refills, Maintenance, 06/21/18 14:04:37 EST Start Date: 06/21/18 Status: OrderedNicotine 7 mg/24 hour patch 1 patch, Topically, Daily, # 30 patch, 1 Refills, Maintenance, 02/02/20 11:10:00 EDT, Patch, [facility], 1 patch Topically Daily, 169, cm, [...] Exam Date Time Procedure Performing Provider Status 03/15/20 6:06 PM Abdomen Comp Inc Decub and/or Cherelle Valadez; Auth (Verified) Erect Notes:(Abdomen Comp Inc Decub and/or Erect) Reason For Exam: DistentionRESULT: Abdomen Comp Inc Decub and/or Erect Abdomen Comp Inc Decub and/or Erect INDICATION/CLINICAL QUESTION: Hx of Present Illness: the patient presents with c o constipation for 9 days denies any abd pain , abd slightly distended no pain on palp COMPARISON: No relevant FINDINGS: No dilated bowel loops are seen. A large stool burden is present throughout the colon. There is no free air. No abnormal calcifications are identified. The osseous structures are intact. IMPRESSION: Large stool burden without obstruction. WSN: [id number] Ordering Physician: Madhu Childers Dictated By: Brielle Bender MD Dictated Date/Time: 03/15/20 6:14 pm Reviewed By: Brielle Bender MD Signed By: Brielle Bender MD Signed Date/Time: 03/15/20 6:14 pm Transcribed By: LARISA Transcribed Date/Time: 03/15/20 6:11 pm Vital Signs Most recent to oldest [Reference Range]: 1 Height 170 cm (03/15/20 5:27 PM) Weight 82.2 kg (03/15/20 5:27 PM) Oxygen Saturation [94-100 %] 99 % (03/15/20 5:27 PM) Pulse Rate [55-90 bpm] 75 bpm (03/15/20 5:27 PM) Blood Pressure [90-138/55-84 mm Hg] 120/79 mm Hg (03/15/20 5:27 PM) Respiratory Rate [16-30 br/min] 17 br/min (03/15/20 5:27 PM) Temperature [96.8-100.4 DegF] 98.6 DegF (03/15/20 5: PM) Mode of Delivery (Oxygen) Room air (03/15/20 5:27 PM) Blood pressure sites Arm, left (03/15/20 5:27 PM) Temperature Route Temporal (03/15/20 5:27 PM) Dry Weight 82.2 kg (03/15/20 5:27 PM) Weight Obtained Via Standing scale (03/15/20 5:27 PM) Dry Weight Obtained Via Standing scale (03/15/20 5:27 PM) Social History Social History Type Response Smoking Status Former smoker, quit more padmini n 30 days ago entered on: 03/11/20 Sex
--- OUTSIDE RECORDS SUMMARY | 2022-06-26 21:19 | XMS_ITS | Continuity of Care Document ---
:1990 Author Organization [facility] Address [address] [place] [address]- Care Team Providers Name Role Phone Diego Ibarra Primary Care Physician Encounter [facility] Date(s): 03/21/20 - 03/28/20 [facility] [address] [place] [address]- Attending Physician: Diego Ibarra Allergies, Adverse Reactions, Alerts Substance Reaction Severity Status Risperdal Active Immunizations Given and Recorded Vaccine Date Status Refusal Reason influenza virus vaccine, inactivated1 07/03/19 Given 1Result Comment: [facility]# [id number] Medications benztropine 1 mg oral tablet 1 mg, 1, tablet, By Mouth, 2 times a day, # 60 tablet, Refills 3, Tot. Refills 3, Maintenance, 11/21/18 9:28:36 EDT, Route to Pharmacy Electronically, [id number], [facility]/pharmacy#[id number] Start Date: 11/21/18 Stop Date: 03/21/19 Status: [...] 03/08/20 10:37:00 EDT, Route to Pharmacy Electronically, [facility], 170, cm, 02/22/20 20:33:00 EDT, Height, [...] 4 Refills, Maintenance, 09/27/19 14:06:00 EDT, Capsule, [facility] #[id number], 169, cm, 07/03/19 16:03:00 EST, Height Start Date: 09/27/19 Status: Orderedloratadine 10 mg oral tablet 10 mg, 1, tablet, By Mouth, Daily, # 30 tablet, Refills 6, Tot. Refills 6, Maintenance, 03/27/20 10:07:00 EDT, Route to Pharmacy Electronically, [facility], 170, cm, 02/22/20 20:33:00 EDT, Height,80.9, [...] Refills, Soft Stop, 03/21/20 14:01:00 EDT, Liquid, [facility], 300... Start Date: 03/21/20 Status: OrderedMelatonin [...] 11:01:00 EST, 02/02/20 11:01:00 EDT, REC Powder, [facility], 17 Gm By Mouth Daily,x30 days,Instr:dissolve in w... Start Date: 02/02/20 Stop Date: 05/02/20 Status: OrderedMultivitamin Daily, 0 Refills, Maintenance, 06/21/18 14:04:37 EST Start Date: 06/21/18 Status: OrderedNicotine 7 mg/24 hour patch 1 patch, Topically, Daily, # 30 patch, 1 Refills, Maintenance, 02/02/20 11:10:00 EDT, Patch, [facility], 1 patch Topically Daily, 169, cm, [...]
--- OUTSIDE RECORDS SUMMARY | 2022-06-26 21:19 | XMS_ITS | Continuity of Care Document ---
:1990 Author Organization [facility] Address [address] [place] [address]- Care Team Providers Name Role Phone Diego Ibarra Primary Care Physician Encounter [facility] Date(s): 10/24/20 - 10/24/[address] [address]- Discharge Disposition: A-D/C Home Attending Physician: Gerard Keita MD Admitting Physician: Gerard Keita MD Referring Physician: Not on Staff, Referring MD Allergies, Adverse Reactions, Alerts Substance Reaction Severity Status Risperdal Active Immunizations Given and Recorded Vaccine Date Status Refusal Reason influenza virus vaccine, inactivated1 07/03/19 Given 1Result Comment: [facility]# [id number] Medications benztropine 1 mg oral tablet 1 mg, 1, tablet, By Mouth, 2 times a day, # 60 tablet, Refills 3, Tot. Refills 3, Maintenance, 11/21/18 9:28:36 EDT, Route to Pharmacy Electronically, [id number], [facility]/pharmacy#[id number] Start Date: 11/21/18 [...] 5 Refills, Maintenance, 06/04/20 9:18:00 EST, Capsule, [facility], To replace 50 mg capsules, 170, cm, 04/01/20 14:07:00 EDT, Height, 83.1, kg, 03/27/20 18:25:00 EDT... Start Date: 06/04/20 Status: OrderedDulcolax 10 mg rectal suppository 1 supp = 10 mg, Rectally, Daily, PRN for constipation, # 10 supp, 0 Refills, Maintenance, 09/13/20 13:08:00 EDT, Suppository, [facility], Partial fill upon patient request if the prescription is for a schedule II opioid drug., 170, cm, 09/13/20 1... Start Date: 09/13/20 Status: OrderedFLUoxetine 20 mg oral capsule 40 mg, 2, capsule, By Mouth, Daily, 2 capsules to equal 40 mg daily., # 60 capsule, Refills 5, Tot. Refills 5, Maintenance, 03/08/20 10:37:00 EDT, Route to Pharmacy Electronically, [facility], 170, cm, 02/22/20 20:33:00 EDT, Height, [...] 4 Refills, Maintenance, 09/19/20 13:00:00 EDT, Capsule, [facility]866[facility], 170, cm, 09/13/20 15:29:00 EDT, Height, 88.3, [...] 10/23/20 10:07:00 EDT, Route to Pharmacy Electronically, [facility], 170, cm, 09/02/20 15:24:00 EDT, Height,86.6, [...] Refills, Soft Stop, 03/21/20 14:01:00 EDT, Liquid, [facility], 300... Start Date: 03/21/20 Status: Orderedmagnesium citrate 8.85% oral liquid 150 mL = 8.725 Gm, By Mouth, Once, # 300 mL, 0 Refills, Soft Stop, 09/20/20 15:27:00 EDT, Liquid, [facility] #[id number], Partial fill upon patient request if the [...] Refills, Acute 08/03/23 11:00:00EST, 08/02/20 8:59:00 EST, [facility], 28, 1 patch Topically Daily,Instr:ROTATE APPLICATION [...] Stop 12/19/20 16:38:00 EDT, 09/17/20 16:38:00 EDT, [facility], 30, MIX & DISSOLVE 17GM... Start [...] oldest [Reference Range]: 1 Height 168 cm (10/24/20 5:15 PM) Weight 83.3 kg (10/24/20 5:15 PM) Oxygen Saturation [94-100 %] 99 % (10/24/20 5:15 PM) Pulse Rate [55-90 bpm] 86 bpm (10/24/20 5:15 PM) Blood Pressure [90-138/55-84 mm Hg] 120/80 mm Hg (10/24/20 5:15 PM) Respiratory Rate [16-30 br/min] 16 br/min (10/24/20 5:15 PM) Temperature [96.8-100.4 DegF] 99.4 DegF (10/24/20 5:15 PM) Mode of Delivery (Oxygen) Room air (10/24/20 5:15 PM) Temperature Route Oral (10/24/20 5:15 PM) Dry Weight 83.3 kg (10/24/20 5:15 PM) Weight Obtained Via Standing scale (10/24/20 5:15 PM) Social History Social History Type Response Smoking Status Former smoker, quit more padmini n 30 days ago entered on: 03/11/20 Sex
--- OUTSIDE RECORDS SUMMARY | 2022-06-26 21:19 | XMS_ITS | Continuity of Care Document ---
:1990 Author Organization [facility] Address [address] [place] [address]- Care Team Providers Name Role Phone Isma IZQUIERDO, Keturah Primary Care Physician Encounter [facility] Date(s): 05/03/22 - 06/02/22 [facility] [address] [place] [id number]- [place] Allergies, Adverse Reactions, Alerts Substance Reaction Severity Status Risperdal unkown Active Immunizations Given and Recorded Vaccine Date Status Refusal Reason SARS-CoV-2 (COVID-19) mRNA-1273 vaccine 06/09/21 Recorded SARS-CoV-2 (COVID-19) mRNA-1273 vaccine 04/17/21 Recorded influenza virus vaccine, inactivated 04/17/21 Recorded influenza virus vaccine, inactivated1 07/03/19 Given 1Result Comment: [facility]# [id number] Medications calcium carbonate 500 mg (200 mg [...] 56 tablet, 3 Refills, Maintenance, 04/15/22 16:25:00 [id number], 28, TAKE 2 TABLETS BY MOUTH DAILY AT BEDTIME, 173, cm, 04/02/22 12:51:00 EDT, Height, 85.8, kg, 04/07/21 14:21:00 EDT, Dry Weight Start Date: 04/15/22 Status: OrderedDulcolax 10 mg rectal suppository 1 supp = 10 mg, Rectally, Daily, PRN for constipation, 1 supp daily as needed for constipation, # 10supp, 0 Refills, Maintenance, 02/03/22 15:20:00 EDT, Suppository, [facility]-45091, Partial fill upon patient request if the prescri... Start Date: 02/03/22 Status: OrderedFish Oil 1000 mg oral capsule 1 capsule = 1,000 mg, By Mouth, 2 times a day, may keep in fridge or freezer, # 60 capsule, 5 Refills, Maintenance, 05/05/22 16:21:00 EST, Capsule, [facility]-67635, Partial fill uponpatient request if the prescription [...] in AM, # 30 capsule, 0 Refills, [facility] [address], 168, cm, 228:41:00 EDT, Height, 85.8, kg, 04/07/21 14:21:00 EDT, Dry Weight Start Date: 01/08/22 Status: Orderedloratadine 10 mg oral tablet See Instructions, TAKE 1 TABLET BY MOUTH DAILY IN THE MORNING, # 30 tablet, Refills 5, Tot. Refills 5, 12/24/21 14:55:00 EDT, Instructions Replace Required Details, Route to Pharmacy Electronically, [facility]-78221, 168, cm, ... Start Date: 12/24/21 Status: [...] capsule, 2 Refills, Maintenance, 05/14/22 10:42:00 EST, [facility] [address], 173, cm, 04/29/22 8:45:00 EST, Height, 85.8, [...] 0 Refills, Maintenance, 04/02/22 13:48:00 EDT, Gel, [facility]-72778, Partial fill upon patient request if the [...] right Confirmed 08/15/20 Active shoulder Lives in care home Confirmed Active Obese class I Confirmed Active [...] Care Team PersonnelName: Keturah Ashby NP Position: [facility] PCO Associate Professional Member Role: PCP Address: Address: [address] [place] [address]- Care Team Related PersonsName: HIRAL EGAN Address: [place] [address] Name: DENISHA EGAN Address: [place] [address] Name: ELLA MUNGUIA Address: home [address] [place] [id number] Name: IHEN ANGELES Address: home [place]KNOWN
--- OUTSIDE RECORDS SUMMARY | 2022-06-26 21:19 | XMS_ITS | Continuity of Care Document ---
:1990 Author Organization [facility] Address [address] [place] [id number]- Care Team Providers Name Role Phone Isma IZQUIERDO, Keturah Primary Care Physician Encounter [facility] [id number] Date(s): 01/01/22 - 01/31/22 [facility] [address] [place] [address]- Allergies, Adverse Reactions, Alerts Substance Reaction Severity Status Risperdal unkown Active Immunizations Given and Recorded Vaccine Date Status Refusal Reason SARS-CoV-2 (COVID-19) mRNA-1273 vaccine 06/09/21 Recorded SARS-CoV-2 (COVID-19) mRNA-1273 vaccine 04/17/21 Recorded influenza virus vaccine, inactivated 04/17/21 Recorded influenza virus vaccine, inactivated1 07/03/19 Given 1Result Comment: [facility]# [id number] Medications calcium carbonate 500 mg (200 mg [...] 0 Refills, Maintenance, 09/13/20 13:08:00 EDT, Suppository, [facility], Partial fill upon patient request if the prescription is for a schedule II opioid drug., 170, cm, 09/13/20 1... Start Date: 09/13/20 Status: OrderedFLUoxetine 20 mg oral capsule 40 mg, 2, capsule, By Mouth, Daily, 2 capsules to equal 40 mg daily., # 60 capsule, Refills 5, Tot. Refills 5, Maintenance, 03/08/20 10:37:00 EDT, Route to Pharmacy Electronically, [facility], 170, cm, 02/22/20 20:33:00 EDT, Height, 80.9, kg, ... Start Date: 03/08/20 Status: Orderedlidocaine 5% topical film 1 patch, Topically, Daily, PRN Pain , Mild, remove after 12 hours, # 30 patch, 3 Refills, Maintenance, 08/27/21 16:03:00 EDT, Film, [facility]- [address], Partial fill upon patient requestif the prescription is for a schedule II opioid d... Start Date: 08/27/21 Status: OrderedLinzess 145 mcg oral capsule 1 capsule, By Mouth, Daily in AM, # 30 capsule, 0 Refills, [facility] [address], 168, cm, :41:00 EDT, Height, 85.8, kg, 04/07/21 14:21:00 EDT, Dry Weight Start Date: 01/08/22 Status: Orderedloratadine 10 mg oral tablet See Instructions, TAKE 1 TABLET BY MOUTH DAILY IN THE MORNING, # 30 tablet, Refills 5, Tot. Refills 5, 12/24/21 14:55:00 EDT, Instructions Replace Required Details, Route to Pharmacy Electronically, [facility]-72870, 168, cm, ... Start Date: 12/24/21 Status: Orderedmagnesium citrate 8.85% oral liquid 17 grams, By Mouth, Once, Use PRN after four days of no bowel movement. Repeat after 24 hours if no BM. Call PCP after 24 hours if no BM after second dose, # 68 Gm, 5 Refills, Soft Stop, 08/07/21 13:25:00 EST, Liquid, [facility], 17 grams By Mo... Start Date: [...] 16:01:00 EDT, EC Capsule, [facility]-21810, Partial fill upon patient request if the prescription isfor a schedule II opioid drug., 168, cm, 11/20/21... Start Date: 12/05/21 Status: OrderedPeri-Colace 50 mg-8.6 mg oral tablet 2 tablet, By Mouth, Daily at bedtime, for 30 days, # 60 tablet, 5 Refills, Acute 05/19/22 10:38:00 EST, 11/20/21 10:38:00 EDT, Tablet, [facility]-56229, Partial fill upon patient request if the [...] Care Team PersonnelName: Keturah Ashby NP Address: [address] [place] [address]
--- OUTSIDE RECORDS SUMMARY | 2022-06-26 21:19 | XMS_ITS | Continuity of Care Document ---
:1990 Author Organization [facility] Address [address] [phone]- Care Team Providers Name Role Phone Isma IZQUIERDO, Keturah Primary Care Physician [facility] [id number] Date(s): 12/17/21 - 01/16/22 [facility] [address] [place] [address]- Allergies, Adverse Reactions, Alerts Substance Reaction Severity Status Risperdal unkown Active Immunizations Given and Recorded Vaccine Date Status Refusal Reason SARS-CoV-2 (COVID-19) mRNA-1273 vaccine 06/09/21 Recorded SARS-CoV-2 (COVID-19) mRNA-1273 vaccine 04/17/21 Recorded influenza virus vaccine, inactivated 04/17/21 Recorded influenza virus vaccine, inactivated1 07/03/19 Given 1Result Comment: [facility]# [id number] Medications calcium carbonate 500 mg (200 mg [...] 0 Refills, Maintenance, 09/13/20 13:08:00 EDT, Suppository, [facility], Partial fill upon patient request if the prescription is for a schedule II opioid drug., 170, cm, 09/13/20 1... Start Date: 09/13/20 Status: OrderedFLUoxetine 20 mg oral capsule 40 mg, 2, capsule, By Mouth, Daily, 2 capsules to equal 40 mg daily., # 60 capsule, Refills 5, Tot. Refills 5, Maintenance, 03/08/20 10:37:00 EDT, Route to Pharmacy Electronically, [facility], 170, cm, 02/22/20 20:33:00 EDT, Height, 80.9, kg, ... Start Date: 03/08/20 Status: Orderedlidocaine 5% topical film 1 patch, Topically, Daily, PRN Pain , Mild, remove after 12 hours, # 30 patch, 3 Refills, Maintenance, 08/27/21 16:03:00 EDT, Film, [facility]- [address], Partial fill upon patient requestif the prescription is for a schedule II opioid d... Start Date: 08/27/21 Status: OrderedLinzess 145 mcg oral capsule 1 capsule, By Mouth, Daily in AM, # 30 capsule, 0 Refills, [facility] [place] [address], 168, cm, :41:00 EDT, Height, 85.8, kg, 04/07/21 14:21:00 EDT, Dry Weight Start Date: 01/08/22 Status: Orderedloratadine 10 mg oral tablet See Instructions, TAKE 1 TABLET BY MOUTH DAILY IN THE MORNING, # 30 tablet, Refills 5, Tot. Refills 5, 12/24/21 14:55:00 EDT, Instructions Replace Required Details, Route to Pharmacy Electronically, [facility]-48383, 168, cm, ... Start Date: 12/24/21 Status: Orderedmagnesium citrate 8.85% oral liquid 17 grams, By Mouth, Once, Use PRN after four days of no bowel movement. Repeat after 24 hours if no BM. Call PCP after 24 hours if no BM after second dose, # 68 Gm, 5 Refills, Soft Stop, 08/07/21 13:25:00 EST, Liquid, [facility], 17 grams By Mo... Start Date: [...] 12/05/21 16:01:00 EDT, EC Capsule, [facility]-74459, Partial fill upon patient request if the prescription isfor a schedule II opioid drug., 168, cm, 11/20/21... Start Date: 12/05/21 Status: OrderedPeri-Colace 50 mg-8.6 mg oral tablet 2 tablet, By Mouth, Daily at bedtime, for 30 days, # 60 tablet, 5 Refills, Acute 05/19/22 10:38:00 EST, 11/20/21 10:38:00 EDT, Tablet, [facility]-71807, Partial fill upon patient request if the [...] MESH VENTRALIGHT ECHO CIR 4.5 - BARD ([id number]) 1 Bard Unknown JENNIFER: No Information Assigning Authority: FDA
--- OUTSIDE RECORDS SUMMARY | 2022-06-26 21:19 | XMS_ITS | Continuity of Care Document ---
:1990 Author Organization [facility] Address [address] [place] [address]- Care Team Providers Name Role Phone Diego Ibarra Primary Care Physician Encounter [facility] Date(s): 09/17/20 - 10/17/20 [facility] [address], [place] [address] Allergies, Adverse Reactions, Alerts Substance Reaction Severity Status Risperdal Active Immunizations Given and Recorded Vaccine Date Status Refusal Reason influenza virus vaccine, inactivated1 07/03/19 Given 1Result Comment: [facility]# [id number] Medications benztropine 1 mg oral tablet 1 mg, 1, tablet, By Mouth, 2 times a day, # 60 tablet, Refills 3, Tot. Refills 3, Maintenance, 11/21/18 9:28:36 EDT, Route to Pharmacy Electronically, [id number], [facility]/pharmacy#[id number] Start Date: 11/21/18 [...] 0 Refills, Maintenance, 09/13/20 13:08:00 EDT, Suppository, [facility], Partial fill upon patient request if the prescription is for a schedule II opioid drug., 170, cm, 09/13/20 1... Start Date: 09/13/20 Status: OrderedFLUoxetine 20 mg oral capsule 40 mg, 2, capsule, By Mouth, Daily, 2 capsules to equal 40 mg daily., # 60 capsule, Refills 5, Tot. Refills 5, Maintenance, 03/08/20 10:37:00 EDT, Route to Pharmacy Electronically, [facility], 170, cm, 02/22/20 20:33:00 EDT, Height, [...] 4 Refills, Maintenance, 09/19/20 13:00:00 EDT, Capsule, [facility], 170, cm, 09/13/20 15:29:00 EDT, Height, 88.3, kg, 09/13/20 15:29:00 EDT, Dry Weight Start Date: 09/19/20 Status: Orderedloratadine 10 mg oral tablet 10 mg, 1, tablet, By Mouth, Daily, for 30 days, # 30 tablet, Refills 6, Tot. Refills 6, Hard Stop 10/23/20 10:07:00 EDT, 03/27/20 10:07:00 EDT, Route to Pharmacy Electronically, [facility], 170, cm, 02/22/20 20:33:00 EDT, Height, [...] 10/23/20 10:07:00 EDT, Route to Pharmacy Electronically, [facility], 170, cm, 09/02/20 15:24:00 EDT, Height,86.6, [...] Refills, Soft Stop, 03/21/20 14:01:00 EDT, Liquid, [facility], 300... Start Date: 03/21/20 Status: Orderedmagnesium citrate 8.85% oral liquid 150 mL = 8.725 Gm, By Mouth, Once, # 300 mL, 0 Refills, Soft Stop, 09/20/20 15:27:00 EDT, Liquid, [facility] #[id number], Partial fill upon patient request if the [...] Refills, Acute 08/03/23 11:00:00EST, 08/02/20 8:59:00 EST, [facility], 28, 1 patch Topically Daily,Instr:ROTATE APPLICATION [...]
--- OUTSIDE RECORDS SUMMARY | 2022-06-26 21:19 | XMS_ITS | Continuity of Care Document ---
:1990 Author Organization [facility] Address [address] [place] [address]- Care Team Providers Name Role Phone Isma IZQUIERDO, Keturah Primary Care Physician Encounter [facility] Date(s): 09/11/21 - 09/11/[address] [address]- Encounter Diagnosis Chest pain (Final) - 09/11/21 Discharge Disposition: A-D/C Home Attending Physician: Marisol Zhang MD Admitting Physician: Marisol Zhang MD Referring Physician: Not on Staff, Referring MD Allergies, Adverse Reactions, Alerts Substance Reaction Severity Status Risperdal unkown Active Immunizations Given and Recorded Vaccine Date Status Refusal Reason influenza virus vaccine, inactivated1 07/03/19 Given 1Result Comment: [facility]# [id number] Medications calcium carbonate 500 mg (200 mg [...] 0 Refills, Maintenance, 09/13/20 13:08:00 EDT, Suppository, [facility], Partial fill upon patient request if the prescription is for a schedule II opioid drug., 170, cm, 09/13/20 1... Start Date: 09/13/20 Status: OrderedFLUoxetine 20 mg oral capsule 40 mg, 2, capsule, By Mouth, Daily, 2 capsules to equal 40 mg daily., # 60 capsule, Refills 5, Tot. Refills 5, Maintenance, 03/08/20 10:37:00 EDT, Route to Pharmacy Electronically, [facility], 170, cm, 02/22/20 20:33:00 EDT, Height, 80.9, kg, ... Start Date: 03/08/20 Status: Orderedlidocaine 5% topical film 1 patch, Topically, Daily, PRN Pain , Mild, remove after 12 hours, # 30 patch, 3 Refills, Maintenance, 08/27/21 16:03:00 EDT, Film, [facility]- [address], Partial fill upon patient requestif the prescription is for a schedule II opioid d... Start Date: 08/27/21 Status: OrderedLinzess 145 mcg oral capsule 1 capsule = 145 mcg, By Mouth, Daily, # 90 capsule, 4 Refills, Maintenance, 03/26/21 16:53:00 EDT, Capsule, [facility], 168, cm, 03/04/21 13:36:00 EDT, Height, 83.3, kg, 10/24/20 17:15:00 EDT, DryWeight Start Date: 03/26/21 Status: Orderedloratadine 10 mg oral tablet See Instructions, TAKE 1 TABLET BY MOUTH DAILY IN THE MORNING, # 30 tablet, Refills 5, Instructions Replace Required Details, Route to Pharmacy Electronically, [facility], 168, cm, 07/21/21 12:32:00 EST, Height, [...] Refills, Soft Stop, 08/07/21 13:25:00 EST, Liquid, [facility], 17 grams By Mo... Start Date: [...] Gm, 2 Refills, Maintenance, 10/30/20 11:19:00 EDT, [facility], 30, MIX & DISSOLVE 17GM DOSE [...] 09/04/21 16:55:00 EDT, Route to Pharmacy Electronically, [facility] [place]-[id number], Partial f... Start Date: 09/04/21 Stop Date: [...] Active Tobacco abuse(Confirmed) Active Umbilical hernia(Confirmed) Active Results Radiology Reports Exam Date Time Procedure Performing Provider Status 09/11/21 12:48 PM Chest Portable Cecy Boone (Verified) Notes:(Chest Portable) Reason For Exam: Shortness of BreathRESULT: Chest Portable Chest Portable Hx of Present Illness: Pt reporting non-radiating chest pain to left side, worse upon inspiration and palpation. Began at approx 0800, reporting 7 10 at this time.; Reason: Shortness of Breath; Clinical Question(s): Pneumonia COMPARISON: 06/20/2020. FINDINGS: LINES AND TUBES: None. LUNGS AND PLEURA: Clear lungs. Normal pulmonary vascularity. No pleural effusion. No pneumothorax. HEART, MEDIASTINUM AND RADHA: Heart is normal in size. Normal upper mediastinal and hilar contour. BONES AND SOFT TISSUES: No acute abnormality. IMPRESSION: No acute abnormality. WSN: [id number] Ordering Physician: Danielle Bird Dictated By: Donte Shah MD, V Dictated Date/Time: 09/11/21 12:55 p Reviewed By: Donte Shah MD, V Signed By: Donte Shah MD, V Signed Date/Time: 09/11/21 12:55 pm Transcribed By: LARISA Transcribed Date/Time: 09/11/21 12:55 pm Vital Signs Most recent to oldest [Reference Range]: 1 2 Oxygen Saturation [94-100 %] 98 % 96 % (09/11/21 4:00 PM) (09/11/21 12:01 PM) Pulse Rate [55-90 bpm] 84 bpm 76 bpm (09/11/21 4:00 PM) (09/11/21 12:01 PM) Blood Pressure [90-138/55-84 mm Hg] 113/74 mm Hg 118/ 81 mm Hg (09/11/21 4:00 PM) (09/11/21 12:01 PM) Respiratory Rate [16-30 br/min] 15 br/min 16 br/mi n *L* (09/11/21 12:01 PM) (09/11/21 4:00 PM) Temperature [96.8-100.4 DegF] 98.0 DegF 98.3 DegF (09/11/21 4:00 PM) (09/11/21 12:01 PM) Mode of Delivery (Oxygen) Room air Room air (09/11/21 4:00 PM) (09/11/21 12:01 PM) Blood pressure sites Arm, left Arm, left (09/11/21 4:00 PM) (09/11/21 12:01 PM) Temperature Route Oral Oral (09/11/21 4:00 PM) (09/11/21 12:01 PM) Social History Social History Type Response Smoking Status Former smoker, quit more padmini n 30 days ago entered on: 03/11/20 Sex Medical Equipment Implanted Date:04/07/21 Target Site:Umbilicus Description Quantity MRI Company Model MESH VENTRALIGHT ECHO CIR 4.5 - BARD ([id number]) 1 Bard Unknown JENNIFER: No Information Assigning Authority: FDA
--- OUTSIDE RECORDS SUMMARY | 2022-06-26 21:19 | XMS_ITS | Continuity of Care Document ---
:1990 Author Organization [facility] Address [address] [id number]- Care Team Providers Name Role Phone Isma IZQUIERDO, Keturah Primary Care Physician Encounter [facility] [id number] Date(s): 12/24/21 - 01/23/22 [facility] [address] [place] [address]- Allergies, Adverse Reactions, Alerts Substance Reaction Severity Status Risperdal unkown Active Immunizations Given and Recorded Vaccine Date Status Refusal Reason SARS-CoV-2 (COVID-19) mRNA-1273 vaccine 06/09/21 Recorded SARS-CoV-2 (COVID-19) mRNA-1273 vaccine 04/17/21 Recorded influenza virus vaccine, inactivated 04/17/21 Recorded influenza virus vaccine, inactivated1 07/03/19 Given 1Result Comment: [facility]# [id number] Medications calcium carbonate 500 mg (200 mg [...] 0 Refills, Maintenance, 09/13/20 13:08:00 EDT, Suppository, [facility], Partial fill upon patient request if the prescription is for a schedule II opioid drug., 170, cm, 09/13/20 1... Start Date: 09/13/20 Status: OrderedFLUoxetine 20 mg oral capsule 40 mg, 2, capsule, By Mouth, Daily, 2 capsules to equal 40 mg daily., # 60 capsule, Refills 5, Tot. Refills 5, Maintenance, 03/08/20 10:37:00 EDT, Route to Pharmacy Electronically, [facility], 170, cm, 02/22/20 20:33:00 EDT, Height, 80.9, kg, ... Start Date: 03/08/20 Status: Orderedlidocaine 5% topical film 1 patch, Topically, Daily, PRN Pain , Mild, remove after 12 hours, # 30 patch, 3 Refills, Maintenance, 08/27/21 16:03:00 EDT, Film, [facility] [place]- [address], Partial fill upon patient requestif the prescription is for a schedule II opioid d... Start Date: 08/27/21 Status: OrderedLinzess 145 mcg oral capsule 1 capsule, By Mouth, Daily in AM, # 30 capsule, 0 Refills, [facility] [id number], 168, cm, :41:00 EDT, Height, 85.8, kg, 04/07/21 14:21:00 EDT, Dry Weight Start Date: 01/08/22 Status: Orderedloratadine 10 mg oral tablet See Instructions, TAKE 1 TABLET BY MOUTH DAILY IN THE MORNING, # 30 tablet, Refills 5, Tot. Refills 5, 12/24/21 14:55:00 EDT, Instructions Replace Required Details, Route to Pharmacy Electronically, [facility] [place]-[id number], 168, cm, ... Start Date: 12/24/21 Status: Orderedmagnesium citrate 8.85% oral liquid 17 grams, By Mouth, Once, Use PRN after four days of no bowel movement. Repeat after 24 hours if no BM. Call PCP after 24 hours if no BM after second dose, # 68 Gm, 5 Refills, Soft Stop, 08/07/21 13:25:00 EST, Liquid, [facility], 17 grams By Mo... Start Date: [...] Maintenance, 12/05/21 16:01:00 EDT, EC Capsule, [facility] [place]-[id number], Partial fill upon patient request if the prescription isfor a schedule II opioid drug., 168, cm, 11/20/21... Start Date: 12/05/21 Status: OrderedPeri-Colace 50 mg-8.6 mg oral tablet 2 tablet, By Mouth, Daily at bedtime, for 30 days, # 60 tablet, 5 Refills, Acute 05/19/22 10:38:00 EST, 11/20/21 10:38:00 EDT, Tablet, [facility] [place]-[id number], Partial fill upon patient request if the [...] MESH VENTRALIGHT ECHO CIR 4.5 - BARD ([id number]) 1 Bard Unknown JENNIFER: No Information Assigning Authority: FDA
--- OUTSIDE RECORDS SUMMARY | 2022-06-26 21:19 | XMS_ITS | Continuity of Care Document ---
:1990 Author Organization [facility] Address [address] [place] [address]- Care Team Providers Name Role Phone Isma IZQUIERDO, Keturah Primary Care Physician Encounter [facility] Date(s): 03/19/22 - 03/20/[address] [address]- Encounter Diagnosis Suicidal ideation (Final) - 03/19/22 Discharge Disposition: A-D/C Home Attending Physician: Angelita Quintanilla MD Admitting Physician: Angelita Quintanilla MD Referring Physician: Not on Staff, Referring MD Allergies, Adverse Reactions, Alerts Substance Reaction Severity Status Risperdal unkown Active Immunizations Given and Recorded Vaccine Date Status Refusal Reason SARS-CoV-2 (COVID-19) mRNA-1273 vaccine 06/09/21 Recorded SARS-CoV-2 (COVID-19) mRNA-1273 vaccine 04/17/21 Recorded influenza virus vaccine, inactivated 04/17/21 Recorded influenza virus vaccine, inactivated1 07/03/19 Given 1Result Comment: [facility]# [id number] Medications Ativan 2 mg oral tablet 1 [...] 0 Refills, Maintenance, 06/26/21 10:58:00 EST, Liquid, [facility], Partial fill upon patient request if [...] 0 Refills, Maintenance, 02/03/22 15:20:00 EDT, [id number], Partial fill upon patient request if the prescri... Start Date: 02/03/22 Status: OrderedFLUoxetine 20 mg oral capsule 40 mg, 2, capsule, By Mouth, Daily, 2 capsules to equal 40 mg daily., # 60 capsule, Refills 5, Tot. Refills 5, Maintenance, 03/08/20 10:37:00 EDT, Route to Pharmacy Electronically, [facility], 170, cm, 02/22/20 20:33:00 EDT, Height, 80.9, kg, .. Start Date: 03/08/20 Status: Orderedlidocaine 5% topical film 1 patch, Topically, Daily, PRN Pain , Mild, remove after 12 hours, # 30 patch, 3 Refills, Maintenance, 08/27/21 16:03:00 EDT, Film, [facility]- [address], Partial fill upon patient requestif the prescription is for a schedule II opioid d... Start Date: 08/27/21 Status: OrderedLinzess 145 mcg oral capsule 1 capsule, By Mouth, Daily in AM, # 30 capsule, 0 Refills, [place] [id number], 168, cm, 228:41:00 EDT, Height, 85.8, kg, 04/07/21 14:21:00 EDT, Dry Weight Start Date: 01/08/22 Status: Orderedloratadine 10 mg oral tablet See Instructions, TAKE 1 TABLET BY MOUTH DAILY IN THE MORNING, # 30 tablet, Refills 5, Tot. Refills 5, 12/24/21 14:55:00 EDT, Instructions Replace Required Details, Route to Pharmacy Electronically, [facility], 168, cm, ... Start Date: 12/24/21 Status: Orderedmagnesium citrate 8.85% oral liquid 17 grams, By Mouth, Once, Use PRN after four days of no bowel movement. Repeat after 24 hours if no BM. Call PCP after 24 hours if no BM after second dose, # 68 Gm, 5 Refills, Soft Stop, 08/07/21 13:25:00 EST, Liquid, [facility], 17 grams By Mo... Start Date: 08/07/21 Status: Orderedmagnesium citrate 8.85% oral liquid 17 grams, By Mouth, Once, Use PRN after four days of no bowel movement. Repeat after 24 hours if no BM. Call PCP after 24 hours if no BM after second dose, # 68 Gm, 1 Refills, Soft Stop, 02/04/22 15:33:00 EDT, Liquid, [facility]-00... Start Date: 02/04/22 Status: OrderedMelatonin 5 [...] Refills, Maintenance, 12/05/21 16:01:00 EDT, EC Capsule, [facility]-[id number], Partial fill upon patient request if the prescription isfor a schedule II opioid drug., 168, cm, 11/20/21... Start Date: 12/05/21 Status: OrderedPeri-Colace 50 mg-8.6 mg oral tablet 2 tablet, By Mouth, Daily at bedtime, for 30 days, # 60 tablet, 5 Refills, Acute 05/19/22 10:38:00 EST, 11/20/21 10:38:00 EDT, Tablet, [facility]-[address], Partial fill upon patient request if the prescription is for a schedule II opioi... Start Date: 11/20/21 Stop Date: 05/19/22 Status: Orderedpolyethylene glycol 3350 oral powder for reconstitution See Instructions, MIX & DISSOLVE 17GM DOSE IN 4 TO 8 OUNCES OF WATER, DRINK THE SOLUTION ONCE A DAY NEEDED FOR CONSTIPATION, # 510 Gm, 2 Refills, Maintenance, 02/04/22 15:24:00 EDT, [facility]-[address], 30, MIX & DISSOLVE 17GM DOSE I... [...] right Confirmed 08/15/20 Active shoulder Lives in [facility] Confirmed Active Obesity Confirmed Active Pain of right Confirmed 08/15/20 Active humerus Annual physical exam Confirmed Active Tobacco abuse Confirmed Active Umbilical hernia Confirmed Active Vital Signs Most recent to oldest 1 2 3 [Reference Range]: Oxygen Saturation [94-100 98 % 94 % 98 % %] (03/20/22 5:35 PM) (03/20/22 7:46 AM) (03/20/22 4:43 AM) Pulse Rate [55-90 bpm] 56 bpm 64 bpm 64 bpm (03/20/22 5:35 PM) (03/20/22 7:46 AM) (03/20/22 4:43 AM) Blood Pressure 124/84 mm Hg 125/72 mm Hg 105/66 mm Hg [90-138/55-84 mm Hg] (03/20/22 5:35 PM) (03/20/22 7:46 AM) (03/07 09/26 4:43 AM) Respiratory Rate [16-30 16 br/min 18 br/min 16 br/mi n br/min] (03/20/22 5:35 PM) (03/20/22 7:46 AM) (03/20/22 4:43 AM) Temperature [96.8-100.4 97.8 DegF 97.9 DegF 98.4 Deg F DegF] (03/20/22 5:35 PM) (03/20/22 7:46 AM) (03/20/22 4:43 AM) Mode of Delivery (Oxygen) Room air Room air Room a ir (03/20/22 5:35 PM) (03/20/22 7:46 AM) (03/20/22 4:43 AM) Blood pressure sites Arm, right Arm, right Arm, right (03/20/22 4:43 AM) (03/19/22 10:25 PM) (03/19/22 12:52 PM) Temperature Route Oral Oral Oral (03/20/22 5:35 PM) (03/20/22 7:46 AM) (03/20/22 4:43 AM) Social History Social History Type Response Smoking Status Former smoker, quit more padmini n 30 days ago entered on: 03/11/20 Sex Implantable Device List Procedure Provider Procedure Date Device Type Site Repair Hernia Umbilical Ortega Fifi WHITE 04/07/21 Unknown Umbilicus Laparoscopic Mes Device Serial Lot or Manufacturing Expiration Distinct MRI Implan table Assigning Identifier Number Batch Date Date Identification Safety Status Authority Number Code Unknown Unknown Unknown Unknown 01/01/23 Unknown Unknown Active Unknown Patient Care team information PersonnelName: Keturah Ashby NP Address: Address: [address] [place] [address]
--- OUTSIDE RECORDS SUMMARY | 2022-06-26 21:19 | XMS_ITS | Continuity of Care Document ---
:1990 Author Organization [facility] Address [address] [place] [address]- Care Team Providers Name Role Phone Diego Ibarra Primary Care Physician Encounter [facility] [id number] Date(s): 09/04/20 - 10/04/20 [facility] [address], [place] [address] Attending Physician: Bel Galloway Admitting Physician: AdmtrBel Referring Physician: Admtr, ArDavid Allergies, Adverse Reactions, Alerts Substance Reaction Severity Status Risperdal Active Immunizations Given and Recorded Vaccine Date Status Refusal Reason influenza virus vaccine, inactivated1 07/03/19 Given 1Result Comment: [facility]# [id number] Medications benztropine 1 mg oral tablet 1 mg, 1, tablet, By Mouth, 2 times a day, # 60 tablet, Refills 3, Tot. Refills 3, Maintenance, 11/21/18 9:28:36 EDT, Route to Pharmacy Electronically, [id number], [facility]/pharmacy#[id number] Start Date: 11/21/18 Stop Date: [...] 0 Refills, Maintenance, 09/13/20 13:08:00 EDT, Suppository, [facility], Partial fill upon patient request if the prescription is for a schedule II opioid drug., 170, cm, 09/13/20 1... Start Date: 09/13/20 Status: OrderedFLUoxetine 20 mg oral capsule 40 mg, 2, capsule, By Mouth, Daily, 2 capsules to equal 40 mg daily., # 60 capsule, Refills 5, Tot. Refills 5, Maintenance, 03/08/20 10:37:00 EDT, Route to Pharmacy Electronically, [facility], 170, cm, 02/22/20 20:33:00 EDT, Height, [...] 09/19/20 13:00:00 EDT, Capsule, [facility], 170, cm, 09/13/20 15:29:00 EDT, Height, 88.3, kg, 09/13/20 15:29:00 EDT, Dry Weight Start Date: 09/19/20 Status: Orderedloratadine 10 mg oral tablet 10 mg, 1, tablet, By Mouth, Daily, for 30 days, # 30 tablet, Refills 6, Tot. Refills 6, Hard Stop 10/23/20 10:07:00 EDT, 03/27/20 10:07:00 EDT, Route to Pharmacy Electronically, [facility], 170, cm, 02/22/20 20:33:00 EDT, Height, [...] 10/23/20 10:07:00 EDT, Route to Pharmacy Electronically, [facility], 170, cm, 09/02/20 15:24:00 EDT, Height,86.6, [...] Refills, Soft Stop, 03/21/20 14:01:00 EDT, Liquid, [facility], 300... Start Date: 03/21/20 Status: Orderedmagnesium citrate 8.85% oral liquid 150 mL = 8.725 Gm, By Mouth, Once, # 300 mL, 0 Refills, Soft Stop, 09/20/20 15:27:00 EDT, Liquid, [facility] #[id number], Partial fill upon patient request if the [...] Refills, Acute 08/03/23 11:00:00EST, 08/02/20 8:59:00 EST, [facility], 28, 1 patch Topically Daily,Instr:ROTATE APPLICATION [...]
--- OUTSIDE RECORDS SUMMARY | 2022-06-26 21:19 | XMS_ITS | Continuity of Care Document ---
:1990 Author Organization [facility] Address [address] [place] [address]- Care Team Providers Name Role Phone Diego Ibarra Primary Care Physician Encounter [facility] Date(s): 01/08/20 - 02/07/20 [facility] [address] [place] [address]- Allergies, Adverse Reactions, Alerts Substance Reaction Severity Status Risperdal Active Immunizations Given and Recorded Vaccine Date Status Refusal Reason influenza virus vaccine, inactivated1 07/03/19 Given 1Result Comment: [facility]# [id number] Medications benztropine 1 mg oral tablet 1 mg, 1, tablet, By Mouth, 2 times a day, # 60 tablet, Refills 3, Tot. Refills 3, Maintenance, 11/21/18 9:28:36 EDT, Route to Pharmacy Electronically, [id number], [facility]/pharmacy#[id number] Start Date: 11/21/18 Stop [...] 11/21/18 9:26:51 EDT, Route to Pharmacy Electronically, [id number], [facility]/pharmacy #[id number] Start Date: 11/21/18 Status: OrderedhydrOXYzine hydrochloride 50 mg oral tablet 1 tablet = 50 mg, By Mouth, Every 4 hours, PRN for anxiety, # 40 tablet, 0 Refills, Maintenance, 02/02/20 11:36:00 EDT, Tablet Start Date: 02/02/20 Status: OrderedLinzess 145 mcg oral capsule 1 capsule = 145 mcg, By Mouth, Daily, # 90 capsule, 4 Refills, Maintenance, 09/27/19 14:06:00 EDT, Capsule, [facility] #[id number], 169, cm, 07/03/19 16:03:00 EST, Height Start Date: 09/27/19 Status: Orderedloratadine 10 mg oral tablet 10 mg, 1, tablet, By Mouth, Daily in AM, Refills 0, Maintenance, 02/02/20 11:37:00 EDT Start Date: 02/02/20 Status: Orderedloratadine 10 mg oral tablet 10 mg, 1, tablet, By Mouth, Daily, # 30 tablet, Refills 6, Tot. Refills 6, Maintenance, 08/30/19 10:07:00 EDT, Route to Pharmacy Electronically, [facility] #[id number], 169, cm, 07/03/19 16:03:00 EST, Height Start [...]
--- OUTSIDE RECORDS SUMMARY | 2022-06-26 21:19 | XMS_ITS | Continuity of Care Document ---
:1990 Author Organization [facility] Address [address] [place] [address]- Care Team Providers Name Role Phone Isma IZQUIERDO, Keturah Primary Care Physician Encounter [facility] NBR [id number] Date(s): 09/11/21 - 10/11/21 [facility] Adult Medicine [address] [phone] [place] Allergies, Adverse Reactions, Alerts Substance Reaction Severity Status Risperdal unkown Active Immunizations Given and Recorded Vaccine Date Status Refusal Reason influenza virus vaccine, inactivated1 07/03/19 Given 1Result Comment: [facility]# [id number] Medications calcium carbonate 500 mg (200 mg [...] 0 Refills, Maintenance, 09/13/20 13:08:00 EDT, Suppository, [facility], Partial fill upon patient request if the prescription is for a schedule II opioid drug., 170, cm, 09/13/20 1... Start Date: 09/13/20 Status: OrderedFLUoxetine 20 mg oral capsule 40 mg, 2, capsule, By Mouth, Daily, 2 capsules to equal 40 mg daily., # 60 capsule, Refills 5, Tot. Refills 5, Maintenance, 03/08/20 10:37:00 EDT, Route to Pharmacy Electronically, [facility], 170, cm, 02/22/20 20:33:00 EDT, Height, 80.9, kg, ... Start Date: 03/08/20 Status: Orderedlidocaine 5% topical film 1 patch, Topically, Daily, PRN Pain , Mild, remove after 12 hours, # 30 patch, 3 Refills, Maintenance, 08/27/21 16:03:00 EDT, Film, [facility]- [address], Partial fill upon patient requestif the prescription is for a schedule II opioid d... Start Date: 08/27/21 Status: OrderedLinzess 145 mcg oral capsule 1 capsule = 145 mcg, By Mouth, Daily, # 90 capsule, 4 Refills, Maintenance, 03/26/21 16:53:00 EDT, Capsule, [facility], 168, cm, 03/04/21 13:36:00 EDT, Height, 83.3, kg, 10/24/20 17:15:00 EDT, DryWeight Start Date: 03/26/21 Status: Orderedloratadine 10 mg oral tablet See Instructions, TAKE 1 TABLET BY MOUTH DAILY IN THE MORNING, # 30 tablet, Refills 5, Instructions Replace Required Details, Route to Pharmacy Electronically, [facility], 168, cm, 07/21/21 12:32:00 EST, Height, [...] Refills, Soft Stop, 08/07/21 13:25:00 EST, Liquid, [facility], 17 grams By Mo... Start Date: [...] Gm, 2 Refills, Maintenance, 10/30/20 11:19:00 EDT, [facility], 30, MIX & DISSOLVE 17GM DOSE [...] of right shoulder(Confirmed) 08/15/20 Active Lives in [facility](Confirmed) Active Obesity(Confirmed) Active Pain of right humerus(Confirmed) 08/15/20 Active Annual physical exam(Confirmed) Active Tobacco abuse(Confirmed) Active Umbilical hernia(Confirmed) Active Social History Social History Type Response Smoking Status Former smoker, quit more padmini n 30 days ago entered on: 03/11/20 Sex Medical Equipment Implanted Date:04/07/21 Target Site:[facility] Description Quantity MRI Company Model MESH VENTRALIGHT ECHO CIR 4.5 - BARD ([id number]) 1 Bard Unknown JENNIFER: No Information Assigning Authority: FDA
--- OUTSIDE RECORDS SUMMARY | 2022-06-26 21:19 | XMS_ITS | Continuity of Care Document ---
:1990 Author Organization [facility] Address [address] [place] [address]- Care Team Providers Name Role Phone Isma IZQUIERDO, Keturah Primary Care Physician Encounter [facility] Date(s): 01/30/22 - 03/01/22 [facility] Adult [facility] [address] [phone] [place] Allergies, Adverse Reactions, Alerts Substance Reaction Severity Status Risperdal unkown Active Immunizations Given and Recorded Vaccine Date Status Refusal Reason SARS-CoV-2 (COVID-19) mRNA-1273 vaccine 06/09/21 Recorded SARS-CoV-2 (COVID-19) mRNA-1273 vaccine 04/17/21 Recorded influenza virus vaccine, inactivated 04/17/21 Recorded influenza virus vaccine, inactivated1 07/03/19 Given 1Result Comment: [facility]# [id number] Medications Ativan 2 mg oral tablet 1 [...] 0 Refills, Maintenance, 02/03/22 15:20:00 EDT, Suppository, [facility] [place]-[address], Partial fill upon patient request if the [...] 03/06/22 15:04:00 EDT, 02/17/22 15:04:00 EDT, Suppository, [facility]-[address], Partial fill upon patient reque... Start Date: 02/17/22 Stop Date: 03/06/22 Status: Orderedlidocaine 5% topical film 1 patch, Topically, Daily, PRN Pain , Mild, remove after 12 hours, # 30 patch, 3 Refills, Maintenance, 08/27/21 16:03:00 EDT, Film, [facility] [place]- [address], Partial fill upon patient requestif the prescription is for a schedule II opioid d... Start Date: 08/27/21 Status: OrderedLinzess 145 mcg oral capsule 1 capsule, By Mouth, Daily in AM, # 30 capsule, 0 Refills, [facility] [id number], 168, cm, 228:41:00 EDT, Height, 85.8, kg, 04/07/21 14:21:00 EDT, Dry Weight Start Date: 01/08/22 Status: Orderedloratadine 10 mg oral tablet See Instructions, TAKE 1 TABLET BY MOUTH DAILY IN THE MORNING, # 30 tablet, Refills 5, Tot. Refills 5, 12/24/21 14:55:00 EDT, Instructions Replace Required Details, Route to Pharmacy Electronically, [facility] [place]-[address], 168, cm, ... Start Date: 12/24/21 Status: Orderedmagnesium citrate 8.85% oral liquid 17 grams, By Mouth, Once, Use PRN after four days of no bowel movement. Repeat after 24 hours if no BM. Call PCP after 24 hours if no BM after second dose, # 68 Gm, 5 Refills, Soft Stop, 08/07/21 13:25:00 EST, Liquid, [facility], 17 grams By Mo... Start Date: 08/07/21 Status: Orderedmagnesium citrate 8.85% oral liquid 17 grams, By Mouth, Once, Use PRN after four days of no bowel movement. Repeat after 24 hours if no BM. Call PCP after 24 hours if no BM after second dose, # 68 Gm, 1 Refills, Soft Stop, 02/04/22 15:33:00 EDT, Liquid, [facility] [place]-00... Start Date: 02/04/22 Status: OrderedMelatonin 5 mg [...] Refills, Maintenance, 12/05/21 16:01:00 EDT, EC Capsule, [facility] [place]-[address], Partial fill upon patient request if the prescription isfor a schedule II opioid drug., 168, cm, 11/20/21... Start Date: 12/05/21 Status: OrderedPeri-Colace 50 mg-8.6 mg oral tablet 2 tablet, By Mouth, Daily at bedtime, for 30 days, # 60 tablet, 5 Refills, Acute 05/19/22 10:38:00 EST, 11/20/21 10:38:00 EDT, Tablet, [facility] [place]-[address], Partial fill upon patient request if the prescription is for a schedule II opioi... Start Date: 11/20/21 Stop Date: 05/19/22 Status: Orderedpolyethylene glycol 3350 oral powder for reconstitution See Instructions, MIX & DISSOLVE 17GM DOSE IN 4 TO 8 OUNCES OF WATER, DRINK THE SOLUTION ONCE A DAY NEEDED FOR CONSTIPATION, # 510 Gm, 2 Refills, Maintenance, 02/04/22 15:24:00 EDT, [facility] [place]-[address], 30, MIX & DISSOLVE 17GM DOSE I... [...] Care Team PersonnelName: Keturah Ashby NP Address: [address] [place] [id number]
--- OUTSIDE RECORDS SUMMARY | 2022-06-26 21:19 | XMS_ITS | Continuity of Care Document ---
:1990 Author Organization [facility] Physical [facility] a [facility] Rehabilitation Address Unavailable , Care Team Providers Name Role Phone Isma IZQUIERDO, Keturah Primary Care Physician Encounter [facility] Date(s): 01/28/21 - 02/27/21 [facility] Allergies, Adverse Reactions, Alerts Substance Reaction Severity Status Risperdal Active Immunizations Given and Recorded Vaccine Date Status Refusal Reason influenza virus vaccine, inactivated1 07/03/19 Given 1Result Comment: [facility]# [id number] Medications benztropine 1 mg oral tablet 1 mg, 1, tablet, By Mouth, 2 times a day, # 60 tablet, Refills 3, Tot. Refills 3, Maintenance, 11/21/18 9:28:36 EDT, Route to Pharmacy Electronically, [id number], [facility]/pharmacy#[id number] Start Date: 11/21/18 Stop Date: 03/21/19 Status: [...] 0 Refills, Maintenance, 09/13/20 13:08:00 EDT, Suppository, [facility], Partial fill upon patient request if the prescription is for a schedule II opioid drug., 170, cm, 09/13/20 1... Start Date: 09/13/20 Status: OrderedFLUoxetine 20 mg oral capsule 40 mg, 2, capsule, By Mouth, Daily, 2 capsules to equal 40 mg daily., # 60 capsule, Refills 5, Tot. Refills 5, Maintenance, 03/08/20 10:37:00 EDT, Route to Pharmacy Electronically, [facility], 170, cm, 02/22/20 20:33:00 EDT, Height, [...] 4 Refills, Maintenance, 09/19/20 13:00:00 EDT, Capsule, [facility]-[address], 170, cm, 09/13/20 15:29:00 EDT, Height, 88.3, kg, 09/13/20 15:29:00 EDT, Dry Weight Start Date: 09/19/20 Status: OrderedLinzess 72 mcg oral capsule 1 capsule = 72 mcg, By Mouth, Daily, do not crush or chew, # 90 capsule, 3 Refills, Maintenance, 12/25/20 13:52:00 EDT, Capsule, [facility], Partial fill upon patient request if [...] 10/23/20 10:07:00 EDT, Route to Pharmacy Electronically, [facility], 170, cm, 09/02/20 15:24:00 EDT, Height,86.6, [...] Refills, Soft Stop, 12/13/20 15:34:00 EDT, Liquid, [facility], 300... Start Date: 12/13/20 Status: OrderedMelatonin [...] 15:39:00 EST, 12/11/20 15:39:00 EDT, REC Powder, [facility], Partial fill uponpatient request if the [...] Gm, 2 Refills, Maintenance, 10/30/20 11:19:00 EDT, [facility], 30, MIX & DISSOLVE 17GM DOSE [...] 12/11/20 15:40:00 EDT, Route to Pharmacy Electronically, [facility], Partial fill upon patient request if [...]
--- OUTSIDE RECORDS SUMMARY | 2022-06-26 21:19 | XMS_ITS | Continuity of Care Document ---
:1990 Author Organization [facility] Adult [facility] Address [address] [place] [address]- Care Team Providers Name Role Phone Isma IZQUIERDO, Keturah Primary Care Physician Encounter [facility] Date(s): 05/22/22 - 06/21/22 [facility] [employer] Adult [facility] [address] [phone]- [place] Allergies, Adverse Reactions, Alerts Substance Reaction Severity Status Risperdal unkown Active Immunizations Given and Recorded Vaccine Date Status Refusal Reason SARS-CoV-2 (COVID-19) mRNA-1273 vaccine 06/09/21 Recorded SARS-CoV-2 (COVID-19) mRNA-1273 vaccine 04/17/21 Recorded influenza virus vaccine, inactivated 04/17/21 Recorded influenza virus vaccine, inactivated1 07/03/19 Given 1Result Comment: [facility]# [id number] Medications calcium carbonate 500 mg (200 mg [...] 56 tablet, 3 Refills, Maintenance, 04/15/22 16:25:00 [facility]-[address], 28, TAKE 2 TABLETS BY MOUTH DAILY AT BEDTIME, 173, cm, 04/02/22 12:51:00 EDT, Height, 85.8, kg, 04/07/21 14:21:00 EDT, Dry Weight Start Date: 04/15/22 Status: OrderedDulcolax 10 mg rectal suppository 1 supp = 10 mg, Rectally, Daily, PRN for constipation, 1 supp daily as needed for constipation, # 10supp, 0 Refills, Maintenance, 02/03/22 15:20:00 EDT, Suppository, [facility]-[address], Partial fill upon patient request if the prescri... Start Date: 02/03/22 Status: OrderedFish Oil 1000 mg oral capsule 1 capsule = 1,000 mg, By Mouth, 2 times a day, may keep in fridge or freezer, # 60 capsule, 5 Refills, Maintenance, 05/05/22 16:21:00 EST, Capsule, [facility]-[address], Partial fill uponpatient request if the prescription [...] in AM, # 30 capsule, 0 Refills, [facility] [address], 168, cm, 228:41:00 EDT, Height, 85.8, kg, 04/07/21 14:21:00 EDT, Dry Weight Start Date: 01/08/22 Status: Orderedloratadine 10 mg oral tablet 1, tablet, By Mouth, Daily in AM, # 28 tablet, Refills 5, Maintenance, 06/10/22 23:46:00 EST, Route to Pharmacy Electronically, [place] [id number], 173, cm, 04/29/22 8:45:00 EST, Height, 85.8, [...] capsule, 2 Refills, Maintenance, 05/14/22 10:42:00 EST, [facility] [address], 173, cm, 04/29/22 8:45:00 EST, Height, 85.8, [...] 0 Refills, Maintenance, 04/02/22 13:48:00 EDT, Gel, [facility]-[address], Partial fill upon patient request if the [...] right Confirmed 08/15/20 Active shoulder Lives in halfway Confirmed Active Obese class I Confirmed Active [...] Care Team PersonnelName: Keturah Ashby NP Position: [facility] PCO Associate Professional Member Role: PCP Address: Address: [address] [place] [address] [place] [address]- Care Team Related PersonsName: HIRAL EGAN Address: [place] [address] Name: DENISHA EGAN Address: [place] [address] Name: ELLA MUNGUIA Address: home [address] [place] [id number] Name: HIEN ANGELES Address: home [place]KNOWN
--- OUTSIDE RECORDS SUMMARY | 2022-06-26 21:19 | XMS_ITS | Continuity of Care Document ---
:1990 Author Organization [facility] Adult [facility] Address [address] [place] [address]- Care Team Providers Name Role Phone Isma IZQUIERDO, Keturah Primary Care Physician Encounter [facility] NBR [id number] Date(s): 08/06/21 - 09/05/21 [facility] Adult Medicine [address] [phone]- Allergies, Adverse Reactions, Alerts Substance Reaction Severity Status Risperdal unkown Active Immunizations Given and Recorded Vaccine Date Status Refusal Reason influenza virus vaccine, inactivated1 07/03/19 Given 1Result Comment: [facility]# [id number] Medications calcium carbonate 500 mg (200 mg [...] 0 Refills, Maintenance, 09/13/20 13:08:00 EDT, Suppository, [facility], Partial fill upon patient request if the prescription is for a schedule II opioid drug., 170, cm, 09/13/20 1... Start Date: 09/13/20 Status: OrderedFLUoxetine 20 mg oral capsule 40 mg, 2, capsule, By Mouth, Daily, 2 capsules to equal 40 mg daily., # 60 capsule, Refills 5, Tot. Refills 5, Maintenance, 03/08/20 10:37:00 EDT, Route to Pharmacy Electronically, [facility], 170, cm, 02/22/20 20:33:00 EDT, Height, 80.9, kg, ... Start Date: 03/08/20 Status: Orderedlidocaine 5% topical film 1 patch, Topically, Daily, PRN Pain , Mild, remove after 12 hours, # 30 patch, 3 Refills, Maintenance, 08/27/21 16:03:00 EDT, Film, [facility]- [address], Partial fill upon patient requestif the prescription is for a schedule II opioid d... Start Date: 08/27/21 Status: OrderedLinzess 145 mcg oral capsule 1 capsule = 145 mcg, By Mouth, Daily, # 90 capsule, 4 Refills, Maintenance, 03/26/21 16:53:00 EDT, Capsule, [facility], 168, cm, 03/04/21 13:36:00 EDT, Height, 83.3, kg, 10/24/20 17:15:00 EDT, DryWeight Start Date: 03/26/21 Status: Orderedloratadine 10 mg oral tablet See Instructions, TAKE 1 TABLET BY MOUTH DAILY IN THE MORNING, # 30 tablet, Refills 5, Instructions Replace Required Details, Route to Pharmacy Electronically, [facility], 168, cm, 07/21/21 12:32:00 EST, Height, [...] Refills, Soft Stop, 08/07/21 13:25:00 EST, Liquid, [facility], 17 grams By Mo... Start Date: [...] Gm, 2 Refills, Maintenance, 10/30/20 11:19:00 EDT, [facility], 30, MIX & DISSOLVE 17GM DOSE [...] 09/04/21 16:55:00 EDT, Route to Pharmacy Electronically, [facility]-[id number], Partial f... Start Date: 09/04/21 Stop Date: 10/04/21 Status: Ordered Problem List Condition Effective Dates Status Health Status Informant Allergic rhinitis(Confirmed) Active Bipolar disorder(Confirmed) Active Chronic constipation(Confirmed) Active Developmental disability(Confirmed) Active Intermittent explosive disorder in Active adult(Confirmed) Chronic GERD(Confirmed) Active Injury of right shoulder(Confirmed) 08/15/20 Active Lives in longterm(Confirmed) Active Obesity(Confirmed) Active Pain of right humerus(Confirmed) 08/15/20 Active Annual physical exam(Confirmed) Active Tobacco abuse(Confirmed) Active Umbilical hernia(Confirmed) Active Social History Social History Type Response Smoking Status Former smoker, quit more padmini n 30 days ago entered on: 03/11/20 Sex Medical Equipment Implanted Date:04/07/21 Target Site:[employer] Description Quantity MRI Company Model MESH VENTRALIGHT ECHO CIR 4.5 - BARD ([id number]) 1 Bard Unknown JENNIFER: No Information Assigning Authority: FDA
--- OUTSIDE RECORDS SUMMARY | 2022-06-26 21:19 | XMS_ITS | Continuity of Care Document ---
:1990 Author Organization [facility] Address [address] [phone]- Care Team Providers Name Role Phone Isma IZQUIERDO, Keturah Primary Care Physician Encounter [facility] [id number] Date(s): 02/03/22 - 02/10/22 [facility] [employer] [facility] [address] [place] [address]- Attending Physician: Santiago Villa MD Allergies, Adverse Reactions, Alerts Substance Reaction Severity Status Risperdal unkown Active Immunizations Given and Recorded Vaccine Date Status Refusal Reason SARS-CoV-2 (COVID-19) mRNA-1273 vaccine 06/09/21 Recorded SARS-CoV-2 (COVID-19) mRNA-1273 vaccine 04/17/21 Recorded influenza virus vaccine, inactivated 04/17/21 Recorded influenza virus vaccine, inactivated1 07/03/19 Given 1Result Comment: [facility]# [id number] Medications Ativan 2 mg oral tablet 1 [...] 0 Refills, Maintenance, 02/03/22 15:20:00 EDT, [facility], Partial fill upon patient request if the prescri... Start Date: 02/03/22 Status: OrderedFLUoxetine 20 mg oral capsule 40 mg, 2, capsule, By Mouth, Daily, 2 capsules to equal 40 mg daily., # 60 capsule, Refills 5, Tot. Refills 5, Maintenance, 03/08/20 10:37:00 EDT, Route to Pharmacy Electronically, [facility], 170, cm, 02/22/20 20:33:00 EDT, Height, 80.9, kg, ... Start Date: 03/08/20 Status: Orderedlidocaine 5% topical film 1 patch, Topically, Daily, PRN Pain , Mild, remove after 12 hours, # 30 patch, 3 Refills, Maintenance, 08/27/21 16:03:00 EDT, [facility] [address], Partial fill upon patient requestif the prescription is for a schedule II opioid d... Start Date: 08/27/21 Status: OrderedLinzess 145 mcg oral capsule 1 capsule, By Mouth, Daily in AM, # 30 capsule, 0 Refills, [place] [id number], 168, cm, :41:00 EDT, Height, 85.8, kg, 04/07/21 14:21:00 EDT, Dry Weight Start Date: 01/08/22 Status: Orderedloratadine 10 mg oral tablet See Instructions, TAKE 1 TABLET BY MOUTH DAILY IN THE MORNING, # 30 tablet, Refills 5, Tot. Refills 5, 12/24/21 14:55:00 EDT, Instructions Replace Required Details, Route to Pharmacy Electronically, [facility] [place]-[id number], 168, cm, ... Start Date: 12/24/21 Status: Orderedmagnesium citrate 8.85% oral liquid 17 grams, By Mouth, Once, Use PRN after four days of no bowel movement. Repeat after 24 hours if no BM. Call PCP after 24 hours if no BM after second dose, # 68 Gm, 5 Refills, Soft Stop, 08/07/21 13:25:00 EST, Liquid, [facility], 17 grams By Mo... Start Date: 08/07/21 Status: Orderedmagnesium citrate 8.85% oral liquid 17 grams, By Mouth, Once, Use PRN after four days of no bowel movement. Repeat after 24 hours if no BM. Call PCP after 24 hours if no BM after second dose, # 68 Gm, 1 Refills, Soft Stop, 02/04/22 15:33:00 EDT, Liquid, [facility] [place]-00... Start Date: 02/04/22 Status: OrderedMelatonin 5 mg [...] Refills, Maintenance, 12/05/21 16:01:00 EDT, EC Capsule, [facility] [place]-[address], Partial fill upon patient request if the prescription isfor a schedule II opioid drug., 168, cm, 11/20/21... Start Date: 12/05/21 Status: OrderedPeri-Colace 50 mg-8.6 mg oral tablet 2 tablet, By Mouth, Daily at bedtime, for 30 days, # 60 tablet, 5 Refills, Acute 05/19/22 10:38:00 EST, 11/20/21 10:38:00 EDT, Tablet, [facility] [place]-[address], Partial fill upon patient request if the prescription is for a schedule II opioi... Start Date: 11/20/21 Stop Date: 05/19/22 Status: Orderedpolyethylene glycol 3350 oral powder for reconstitution See Instructions, MIX & DISSOLVE 17GM DOSE IN 4 TO 8 OUNCES OF WATER, DRINK THE SOLUTION ONCE A DAY NEEDED FOR CONSTIPATION, # 510 Gm, 2 Refills, Maintenance, 02/04/22 15:24:00 EDT, [facility] [place]-[id number], 30, MIX & DISSOLVE 17GM DOSE I... [...] oldest [Reference Range]: 1 Height 168 cm (02/03/22 2:54 PM) Weight 83 kg (02/03/22 2:54 PM) Oxygen Saturation [94-100 %] 96 % (02/03/22 2:54 PM) Pulse Rate [55-90 bpm] 91 bpm *H* (02/03/22 2:54 PM) Body Mass Index [18.5-24.99] 29.41 *H* (02/03/22 2:54 PM) Blood Pressure [90-138/55-84 mm Hg] 120/68 mm Hg (02/03/22 2:54 PM) Respiratory Rate [16-30 br/min] 18 br/min (02/03/22 2:54 PM) Social History Social History Type [...] Care Team PersonnelName: Isma IZQUIERDO, Keturah Address: [address] [place] [id number]
[2022-06-26 21:21] LABS: Basophils Percent Auto 0.8 % (0-2); Eosinophils Absolute Auto 0.4 X10*3/uL (0.0-0.4); Hematocrit 37.9 % (42.0-52.0); Hemoglobin 13.3 g/dl (14.0-18.0); Imm Gran Abs Auto 0.04 X10*3/uL (0.00-0.03); Imm Gran Pct Auto 0.8 % (0.0-0.4); Lymphocytes Absolute Auto 2.2 X10*3/uL (1.2-4.9); Lymphocytes Percent Auto 42.1 % (20-40); Mean Corpuscular HGB Conc 35.1 g/dl (31.0-36.0); Mean Corpuscular Hemoglobin 32.9 pg (27.0-33.0); Mean Corpuscular Volume 93.8 fL (80.0-98.0); Mean Platelet Volume 8.6 fL (9.4-12.4); Monocytes Absolute Auto 0.6 X10*3/uL (0.1-1.2); Neutrophils Absolute Auto 1.9 x10*3/uL (2.0-8.3); Neutrophils Percent Auto 37.3 % (45-73); Platelet Count 173 X10*3/uL (160-400); Red Blood Count 4.04 X10*6/uL (4.60-5.80); Red Cell Distribution Width 11.7 % (11.0-16.0); White Blood Count 5.2 X10*3/uL (4.8-10.8)
[2022-06-26 21:24] LABS: Amphetamine Screen Urine Not Detected (Not Detect); Barbiturates, Urine Not Detected (Not Detect); Benzodiazepines Screen Urine Not Detected (Not Detect); Cannabinoid Screen Urine Not Detected (Not Detect); Cocaine Screen Urine Not Detected (Not Detect); Fentanyl, urine Not Detected (Not Detect); Opiate Screen Urine Not Detected (Not Detect); Phencyclidine Screen Urine Not Detected (Not Detect)
[2022-06-26 21:26] LABS: Valproate 52.5 mcg/mL (50.0-100.0)
[2022-06-26 21:29] LABS: Alanine Aminotransferase 16 U/L (0-40); Albumin Level 4.2 g/dL (3.5-5.0); Alkaline Phosphatase 109 U/L (39-117); Anion Gap 14 (12-20); Aspartate Amino Transferase 18 U/L (5-37); Bilirubin Total 0.5 mg/dL (0.0-1.0); Blood Urea Nitrogen 14 mg/dL (9-16); Calcium 9.4 mg/dL (8.4-10.2); Carbon Dioxide 27 mmol/L (22-29); Chloride 103 mmol/L (96-108); Creatinine Clr Calc Pharmacy 89.3; Estimated Glomerular Filt Rate > 60; Glucose Random 112 mg/dL (60-115); Potassium 4.1 mmol/L (3.3-5.1); Sodium 140 mmol/L (135-145); Total Protein 7.4 g/dL (6.5-8.0)
[2022-06-26 21:34] LABS: COVID-19 Test Negative (Negative); IDNOW Serial# 6674DD1D
--- NOTE | 2022-06-27 06:02 | PC.NURSE ---
Patient slept through the night, no distress observed/reported, behavior non concerning, med rec completed/pending provider's approval, awaiting care team assessment in the morning, VSS, will continue to monitor.
[2022-06-27 09:49] VITALS: BP 125/85; PULSE 78; RESP 16; TEMP 37.1; O2SAT 97
== END 2022-06-27 10:19 | disposition home or self-care (01) ==
PROVIDERS: Emergency Provider Emergency Medicine
DX: F41.8 Other specified anxiety disorders (principal); F43.0 Acute stress reaction; F63.81 Intermittent explosive disorder; F79 Unspecified intellectual disabilities; F91.9 Conduct disorder, unspecified
CPT/HCPCS: 36415; 80053; 80164; 80307; 81003; 85025; 87635; 99284; S9485

== ENCOUNTER 2022-07-12 13:32 | Emergency (ER) | payer MEDICAID, SELFPAY ==
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
[2022-07-12 13:40] VITALS: BP 138/46; PULSE 92; RESP 16; TEMP 36.8; O2SAT 98; BMI 25.8
--- OUTSIDE RECORDS SUMMARY | 2022-07-12 14:49 | XMS_ITS | Continuity of Care Document ---
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, Keturah Veronica Primary Care Physician Encounter [facility] Date(s): 06/11/22 - 07/11/[address] [id number] Attending Physician: Admlanden, Bel Admitting Physician: Admtr, Ar8 Referring Physician: Admtr, Ar8 Allergies, Adverse Reactions, Alerts Substance Reaction Severity Status Risperdal unkown Active Immunizations Given and Recorded Vaccine Date Status Refusal Reason tetanus/diphtheria/pertussis, acel(Tdap)1 07/09/22 Given SARS-CoV-2 (COVID-19) mRNA-1273 vaccine 06/09/21 Recorded SARS-CoV-2 (COVID-19) mRNA-1273 vaccine 04/17/21 Recorded influenza virus vaccine, inactivated 04/17/21 Recorded influenza virus vaccine, inactivated2 07/03/19 Given 1Result Comment: [facility]: [id number] Comment: [facility]# [id number] Medications calcium carbonate 500 mg (200 mg [...] tablet, 3 Refills, Maintenance, 04/15/22 16:25:00 EST, [id number], 28, TAKE 2 TABLETS BY MOUTH DAILY AT BEDTIME, 173, cm, 04/02/22 12:51:00 EDT, Height, 85.8, kg, 04/07/21 14:21:00 EDT, Dry Weight Start Date: 04/15/22 Status: OrderedDulcolax 10 mg rectal suppository 1 supp = 10 mg, Rectally, Daily, PRN for constipation, 1 supp daily as needed for constipation, # 10supp, 0 Refills, Maintenance, 02/03/22 15:20:00 EDT, Suppository, [facility]-[id number], Partial fill upon patient request if the prescri... Start Date: 02/03/22 Status: OrderedFish Oil 1000 mg oral capsule 1 capsule = 1,000 mg, By Mouth, 2 times a day, may keep in fridge or freezer, # 60 capsule, 5 Refills, Maintenance, 05/05/22 16:21:00 EST, Capsule, [facility]-[id number], Partial fill uponpatient request if the prescription [...] in AM, # 30 capsule, 0 Refills, [facility] [id number], 168, cm, 06/16/228:41:00 EDT, Height, 85.8, kg, 04/07/21 14:21:00 EDT, Dry Weight Start Date: 01/08/22 Status: Orderedloratadine 10 mg oral tablet 1, tablet, By Mouth, Daily in AM, # 28 tablet, Refills 5, Maintenance, 06/10/22 23:46:00 EST, Route to Pharmacy Electronically, [place] [id number], 173, cm, 04/29/22 8:45:00 EST, Height, 85.8, [...] 2 Refills, Maintenance, 05/14/22 10:42:00 EST, [facility] [id number], 173, cm, 04/29/22 8:45:00 EST, Height, 85.8, [...] Refills, Maintenance, 04/02/22 13:48:00 EDT, Gel, [facility]-[id number], Partial fill upon patient request if the [...] Care team information Care Team PersonnelName: Keturah Felipe NP Position: [facility] Associate Professional Member Role: PCP Address: Address: [address] [place] [address] [place] [address]- Care Team Related PersonsName: HIRAL EGAN Address: [place] [facility] [place] [place] [address] Name: DENISHA EGAN Address: [place] [address] Name: ELLA MUNGUIA Address: home [address] [place] [id number] Name: HIEN ANGELES Address: home UNKNOWN
--- OUTSIDE RECORDS SUMMARY | 2022-07-12 14:52 | XMS_ITS | Continuity of Care Document ---
:1990 Author Organization [facility] [employer] [facility] Address [address] [place] [address]- Care Team Providers Name Role Phone Isma IZQUIERDO, Keturah Primary Care Physician Encounter [facility] Date(s): 05/28/22 - 06/27/22 [facility] [address] [place] [id number]- [place] Allergies, Adverse Reactions, Alerts Substance Reaction Severity Status Risperdal unkown Active Immunizations Given and Recorded Vaccine Date Status Refusal Reason SARS-CoV-2 (COVID-19) mRNA-1273 vaccine 06/09/21 Recorded SARS-CoV-2 (COVID-19) mRNA-1273 vaccine 04/17/21 Recorded influenza virus vaccine, inactivated 04/17/21 Recorded influenza virus vaccine, inactivated1 07/03/19 Given 1Result Comment: [facility]# [id number] Medications calcium carbonate 500 mg (200 mg [...] 56 tablet, 3 Refills, Maintenance, 04/15/22 16:25:00 [facility]-[id number], 28, TAKE 2 TABLETS BY MOUTH DAILY AT BEDTIME, 173, cm, 04/02/22 12:51:00 EDT, Height, 85.8, kg, 04/07/21 14:21:00 EDT, Dry Weight Start Date: 04/15/22 Status: OrderedDulcolax 10 mg rectal suppository 1 supp = 10 mg, Rectally, Daily, PRN for constipation, 1 supp daily as needed for constipation, # 10supp, 0 Refills, Maintenance, 02/03/22 15:20:00 EDT, Suppository, [facility]-[id number], Partial fill upon patient request if the prescri... Start Date: 02/03/22 Status: OrderedFish Oil 1000 mg oral capsule 1 capsule = 1,000 mg, By Mouth, 2 times a day, may keep in fridge or freezer, # 60 capsule, 5 Refills, Maintenance, 05/05/22 16:21:00 EST, Capsule, [facility]-[id number], Partial fill uponpatient request if the prescription [...] 30 capsule, 0 Refills, [facility] [id number], 168, cm, 228:41:00 EDT, Height, 85.8, kg, 04/07/21 14:21:00 EDT, Dry Weight Start Date: 01/08/22 Status: Orderedloratadine 10 mg oral tablet 1, tablet, By Mouth, Daily in AM, # 28 tablet, Refills 5, Maintenance, 06/10/22 23:46:00 EST, Route to Pharmacy Electronically, [place] [id number], 173, cm, 04/29/22 8:45:00 EST, Height, 85.8, [...] Maintenance, 05/14/22 10:42:00 EST, [facility] [id number], 173, cm, 04/29/22 8:45:00 EST, Height, 85.8, [...] 0 Refills, Maintenance, 04/02/22 13:48:00 EDT, Gel, [facility]-[id number], Partial fill upon patient request if the [...] right Confirmed 08/15/20 Active shoulder Lives in shelter Confirmed Active Obese class I Confirmed Active [...] Care Team PersonnelName: Keturah Ashby NP Position: [facility] Associate Professional Member Role: PCP Address: Address: [address] [place] [address] [place] [address]- Care Team Related PersonsName: HIRAL EGAN Address: [place] [address] Name: DENISHA EGAN Address: [place] [address] Name: ELLA MUNGUIA Address: home [address] [place] [id number] Name: HIEN ANGELES Address: home UNKNOWN
== END 2022-07-12 15:19 | disposition home or self-care (01) ==
PROVIDERS: Emergency Provider Student in an Organized Health Care Education/Training Program
DX: S40.011A Contusion of right shoulder, initial encounter (principal); V43.62XA Car passenger injured in collision with other type car in traffic accident, initial encounter; Y93.9 Activity, unspecified; Y92.410 Unspecified street and highway as the place of occurrence of the external cause; Y99.9 Unspecified external cause status; Z79.899 Other long term (current) drug therapy; Z87.891 Personal history of nicotine dependence
CPT/HCPCS: 73030; 99282; 99283

== ENCOUNTER 2022-09-13 20:49 | Emergency (ER) | payer OTHER, SELFPAY ==
[2022-09-13 21:22] VITALS: BP 110/77; PULSE 80; RESP 18; TEMP 36.8; O2SAT 95; BMI 29.9
--- OUTSIDE RECORDS SUMMARY | 2022-09-13 22:44 | XMS_ITS | Continuity of Care Document ---
Author Name [facility] Address [address] [place] [address]- Care Team Providers Care Plant Protection Supervisor Name Role Phone Matteo TELEVISION AGENT, Keturah Veronica Primary Care Physician Encounter [facility] NBR [id number] Date(s): 07/06/22 - 08/05/22 [facility] [address] [id number]- Attending Physician: Keturah Ashby NP Allergies, Adverse Reactions, Alerts Substance Reaction Severity Status Risperdal unkown Active Immunizations Given and Recorded Vaccine Date Status Refusal Reason tetanus/diphtheria/pertussis, acel(Tdap) 1 07/09/22 Given SARS-CoV-2 (COVID-19) mRNA-1273 vaccine 06/09/21 R ecorded SARS-CoV-2 (COVID-19) mRNA-1273 vaccine 04/17/21 R ecorded influenza virus vaccine, inactivated 04/17/21 Lebron rded influenza virus vaccine, inactivated 2 07/03/19 Gi tejal 1Result Comment: [facility]: [id number] 2Result Comment: [facility]# [id number] Medications calcium carbonate 500 mg (200 mg elemental calcium) oral tablet, chewable 500 mg, 1, tablet, By Mouth, Every 4 hours, PRN, Refills 0, Maintenance, Dyspepsia, 07/30/22 9:39:00 EST, Partial fill upon patient request if the prescription is for a schedule II opioid drug. Start Date: 07/30/22 Status: Ordered diclofenac 1% topical gel = 4 Gm, Topically, 4 times a day, PRN Pain , Moderate, 0 Refills, Maintenance, 07/30/22 9:39:00 EST, Gel, Partial fill upon patient request if the prescription is for a schedule II opioid drug. Start Date: 07/30/22 Status: Ordered divalproex sodium 500 mg oral tablet, extended release 3 tablet = 1,500 mg, By Mouth, Daily at bedtime, # 90 tablet, 0 Refills, Maintenance, 07/30/22 9:30:00 EST, ER Tablet, [facility]- 37367, Partial fill upon patient request if the prescription is for a schedule II opioid drug., 168, cm... Start Date: 07/30/22 Status: Ordered docusate-senna 50 mg-187 mg oral tablet 2 tablet, By Mouth, Daily at bedtime, # 56 tablet, 0 Refills, Maintenance, 08/03/22 7:11:00 EST, [facility]-[id number], 28, TAKE 2 TABLETS BY MOUTH DAILY AT BEDTIME, 168, cm, 07/30/22 8:06:00 EST, Height, 88.9, kg, 07/22/22 18:11:00 EST, Dry Weight Start Date: 08/03/22 Status: Ordered Dulcolax 10 mg rectal suppository 1 supp = 10 mg, Rectally, Daily, PRN for constipation, 1 supp daily as needed for constipation, # 10 supp, 0 Refills, Maintenance, 02/03/22 15:20:00 EDT, Suppository, [facility]-[id number], Partial fill upon patient request if the prescri... Start Date: 02/03/22 Status: Ordered Fish Oil 1000 mg oral capsule 1 capsule = 1,000 mg, By Mouth, 2 times a day, may keep in fridge or freezer, # 60 capsule, 5 Refills, Maintenance, 05/05/22 16:21:00 EST, Capsule, [facility]-17996, Partial fill upon patient request if the prescription is for a sche... Start Date: 05/05/22 Stop Date: 11/01/22 Status: Ordered FLUoxetine 20 mg oral capsule 40 mg, 2, capsule, By Mouth, Daily, # 60 capsule, Refills 0, Tot. Refills 0, Maintenance, 07/30/22 9:30:00 EST, Route to Pharmacy Electronically, [facility]-44710, Partial fill uponpatient request if the prescription is for a schedu... Start Date: 07/30/22 Status: Ordered hydrOXYzine pamoate 50 mg oral capsule 1 capsule = 50 mg, By Mouth, Every 6 hours, PRN Anxiety, # 120 capsule, 0 Refills, Maintenance, 07/30/22 9:34:00 EST, Capsule, [facility]08196, Partial fill upon patient request ifthe prescription is for a schedule II opioid drug.,... Start Date: 07/30/22 Status: Ordered Linzess 145 mcg oral capsule 1 capsule, By Mouth, Daily in AM, # 30 capsule, 0 Refills, [facility] [id number], 168, cm, 11/20/21 8:41:00 EDT, Height, 85.8, kg, 04/07/21 14:21:00 EDT, Dry Weight Start Date: 01/08/22 Status: Ordered loratadine 10 mg oral tablet 10 mg, 1, tablet, By Mouth, Daily in AM, # 30 tablet, Refills 0, Tot. Refills 0, Maintenance, 07/30/22 9:30:00 EST, Route to Pharmacy Electronically, [facility]73328, Partial fill upon patient request if the prescription is for a sc... Start Date: 07/30/22 Status: Ordered LORazepam 1 mg oral tablet 1 tablet = 1 mg, By Mouth, Every 6 hours, PRN Agitation, # 120 tablet, 0 Refills, Maintenance, 07/30/22 9:30:00 EST, Tablet, [facility]-66073, Partial fill upon patient request if the prescription is for a schedule II opioid drug., 1... Start Date: 07/30/22 Status: Ordered melatonin 10 mg oral tablet 1 tablet = 10 mg, By Mouth, Daily at bedtime, PRN as needed for insomnia, # 30 tablet, 0 Refills, Maintenance, 07/30/22 9:31:00 EST, Tablet, [facility]-23812, Partial fill upon patient request if the prescription is for a schedule II... Start Date: 07/30/22 Status: Ordered olanzapine 5 mg oral tablet 5 mg, 1, tablet, By Mouth, 2 times a day, # 60 tablet, Refills 0, Tot. Refills 0, Maintenance, 07/30/22 9:32:00 EST, Route to Pharmacy Electronically, [facility]-[id number], Partial fillupon patient request if the prescription is for a s... Start Date: 07/30/22 Status: Ordered pantoprazole 20 mg oral delayed release tablet = 20 mg, By Mouth, Daily in AM, # 30 tablet, 0 Refills, Maintenance, 07/30/22 9:32:00 EST, EC Tablet, 168, cm, 07/30/22 8:06:00 EST, Height, 88.9, kg, 07/22/22 18:11:00 EST, Dry Weight Start Date: 07/30/22 Status: Ordered propranolol 80 mg oral capsule, extended release 80 mg, 1, capsule, By Mouth, Daily, # 30 capsule, Refills 0, Tot. Refills 0, Maintenance, 07/30/22 9:34:00 EST, [facility] Partial fill uponpatient request if the prescription is for a schedu... Start Date: 07/30/22 Status: Ordered psyllium 3.4 gm/5.2 gm oral powder for reconstitution = 1.7 Gm, By Mouth, 3 times a day, # 1,042 Gm, 0 Refills, Maintenance, 07/30/22 9:41:00 EST, REC Powder, [facility]-22026, Partial fill upon patient request if the prescription is for a schedule II opioid drug., 168, cm, 07/30/22 8:0... Start Date: 07/30/22 Status: Ordered QUEtiapine 100 mg oral tablet 300 mg, 3, tablet, By Mouth, 2 times a day, # 180 tablet, Refills 0, Tot. Refills 0, Maintenance, 07/30/22 9:34:00 EST, [facility], Partial fill upon patient request if the prescription is for... Start Date: 07/30/22 Status: Ordered Problem List Condition Confirmation Course Effective Dates Status H ealth Status Informant Allergic rhinitis Confirmed Active Bipolar disorder Confirmed Active Chronic constipation Confirmed Active Developmental disability Confirmed Active Intermittent explosive disorder in adult Confirmed Active Chronic GERD Confirmed Active Injury of right shoulder Confirmed 08/15/20 Active Lives in penitentiary Confirmed Active Obese class I Confirmed Active Obesity Confirmed Active Pain of right humerus Confirmed 08/15/20 Active Annual physical exam Confirmed Active Tobacco abuse Confirmed Active Umbilical hernia Confirmed Active Social History Social History Type Response Smoking Status Former smoker, quit more than 30 days ago; Other: quit 1 year ago; entered on: 04/29/22 Sex Implantable Device List Procedure Provider Procedure Date Device Type Site Repair Hernia Umbilical Laparoscopic Mes Fifi Ortega MD 04/07/21 Unknown Umbilicus Device Identifier Serial Number Lot or Batch Number Manufacturing Date Expiration Date Distinct Identification Code MRI Safety Implantable Status Assigning Authority Unknown Unknown Unknown Unknown 01/01/23 Unknown Unknown Active Unk nown Patient Care team information Care Team Personnel Name: Justa Reynoso Position: S RN Member Role: Primary Care Nurse Name: Mayra Clay RN Position: S RN Member Role: Primary Care Nurse Name: Keturah Felipe NP Position: [facility] Associate Professional Member Role: PCP Address: Address: [address] [place] [id number] Name: Sonal Dumont RN Position: [facility] RN Supv Member Role: Primary Care Nurse Name: Beata Chavez RN Position: [facility] RN Member Role: Primary Care Nurse Name: Priscilla Pelletier RN Position: [facility] RN Member Role: Primary Care Nurse Care Team Related Persons Name: HIRAL Address: [place] [address] Name: DENISHA EGAN Address: [place] [address] Name: ELLA MUNGUIA Address: home [address] [place] [address] Name: HIEN ANGELES Address: home UNKNOWN
--- OUTSIDE RECORDS SUMMARY | 2022-09-13 22:45 | XMS_ITS | Continuity of Care Document ---
Author Name Unknown Organization [facility] Address [address] [place] [address]- Care Team Providers Care Microfilmer Name Role Phone Matteo POLYETHYLENE COMBINER, Keturah Veronica Primary Care Physician Encounter [facility] NBR [id number] Date(s): 07/06/22 - 08/05/22 [facility] [address] [place] [address]- [place] Allergies, Adverse Reactions, Alerts Substance Reaction Severity Status Risperdal unkown Active Immunizations Given and Recorded Vaccine Date Status Refusal Reason tetanus/diphtheria/pertussis, acel(Tdap) 1 07/09/22 Given SARS-CoV-2 (COVID-19) mRNA-1273 vaccine 06/09/21 R ecorded SARS-CoV-2 (COVID-19) mRNA-1273 vaccine 04/17/21 R ecorded influenza virus vaccine, inactivated 04/17/21 Lebron rded influenza virus vaccine, inactivated 2 07/03/19 Gi tejal 1Result Comment: [facility]: [id number] 2Result Comment: [facility]# [id number] Medications calcium carbonate 500 mg (200 mg [...] Refills, Maintenance, 07/30/22 9:30:00 EST, ER Tablet, [facility]- 47167, Partial fill upon patient request if the prescription is for a schedule II opioid drug., 168, cm... Start Date: 07/30/22 Status: Ordered docusate-senna 50 mg-187 mg oral tablet 2 tablet, By Mouth, Daily at bedtime, # 56 tablet, 0 Refills, Maintenance, 08/03/22 7:11:00 EST, [id number], 28, TAKE 2 TABLETS BY MOUTH DAILY AT BEDTIME, 168, cm, 07/30/22 8:06:00 EST, Height, 88.9, kg, 07/22/22 18:11:00 EST, Dry Weight Start Date: 08/03/22 Status: Ordered Dulcolax 10 mg rectal suppository 1 supp = 10 mg, Rectally, Daily, PRN for constipation, 1 supp daily as needed for constipation, # 10 supp, 0 Refills, Maintenance, 02/03/22 15:20:00 EDT, Suppository, [facility]-67449, Partial fill upon patient request if the prescri... Start Date: 02/03/22 Status: Ordered Fish Oil 1000 mg oral capsule 1 capsule = 1,000 mg, By Mouth, 2 times a day, may keep in fridge or freezer, # 60 capsule, 5 Refills, Maintenance, 05/05/22 16:21:00 EST, Capsule, [facility]-49387, Partial fill upon patient request if the prescription is for a sche... Start Date: 05/05/22 Stop Date: 11/01/22 Status: Ordered FLUoxetine 20 mg oral capsule 40 mg, 2, capsule, By Mouth, Daily, # 60 capsule, Refills 0, Tot. Refills 0, Maintenance, 07/30/22 9:30:00 EST, Route to Pharmacy Electronically, [facility]-69121, Partial fill uponpatient request if the prescription is for a schedu... Start Date: 07/30/22 Status: Ordered hydrOXYzine pamoate 50 mg oral capsule 1 capsule = 50 mg, By Mouth, Every 6 hours, PRN Anxiety, # 120 capsule, 0 Refills, Maintenance, 07/30/22 9:34:00 EST, Capsule, [facility]-[id number], Partial fill upon patient request ifthe prescription is for a schedule II opioid drug.,... Start Date: 07/30/22 Status: Ordered Linzess 145 mcg oral capsule 1 capsule, By Mouth, Daily in AM, # 30 capsule, 0 Refills, [facility] 48641, 168, cm, 11/20/21 8:41:00 EDT, Height, 85.8, kg, 04/07/21 14:21:00 EDT, Dry Weight Start Date: 01/08/22 Status: Ordered loratadine 10 mg oral tablet 10 mg, 1, tablet, By Mouth, Daily in AM, # 30 tablet, Refills 0, Tot. Refills 0, Maintenance, 07/30/22 9:30:00 EST, Route to Pharmacy Electronically, [facility]-45576, Partial fill upon patient request if the prescription is for a sc... Start Date: 07/30/22 Status: Ordered LORazepam 1 mg oral tablet 1 tablet = 1 mg, By Mouth, Every 6 hours, PRN Agitation, # 120 tablet, 0 Refills, Maintenance, 07/30/22 9:30:00 EST, Tablet, [facility]-53426, Partial fill upon patient request if the prescription is for a schedule II opioid drug., 1... Start Date: 07/30/22 Status: Ordered melatonin 10 mg oral tablet 1 tablet = 10 mg, By Mouth, Daily at bedtime, PRN as needed for insomnia, # 30 tablet, 0 Refills, Maintenance, 07/30/22 9:31:00 EST, Tablet, [facility]-53952, Partial fill upon patient request if the prescription is for a schedule II... Start Date: 07/30/22 Status: Ordered olanzapine 5 mg oral tablet 5 mg, 1, tablet, By Mouth, 2 times a day, # 60 tablet, Refills 0, Tot. Refills 0, Maintenance, 07/30/22 9:32:00 EST, Route to Pharmacy Electronically, [facility], Partial fillupon patient request if the prescription [...] 07/30/22 9:34:00 EST, [facility], [place] [facility], Partial fill uponpatient request if the prescription is for a schedu... Start Date: 07/30/22 Status: Ordered psyllium 3.4 gm/5.2 gm oral powder for reconstitution = 1.7 Gm, By Mouth, 3 times a day, # 1,042 Gm, 0 Refills, Maintenance, 07/30/22 9:41:00 EST, REC Powder, [facility]-10046, Partial fill upon patient request if the prescription is for a schedule II opioid drug., 168, cm, 07/30/22 8:0... Start Date: 07/30/22 Status: Ordered QUEtiapine 100 mg oral tablet 300 mg, 3, tablet, By Mouth, 2 times a day, # 180 tablet, Refills 0, Tot. Refills 0, Maintenance, 07/30/22 9:34:00 EST, Route to Pharmacy Electronically, [place] [facility] Partial fill upon patient request if the prescription is for... Start Date: 07/30/22 Status: Ordered Problem List Condition Confirmation Course Effective Dates Status H ealth Status Informant Allergic rhinitis Confirmed Active Bipolar disorder Confirmed Active Chronic constipation Confirmed Active Developmental disability Confirmed Active Intermittent explosive disorder in adult Confirmed Active Chronic GERD Confirmed Active Injury of right shoulder Confirmed 08/15/20 Active Lives in half-way Confirmed Active Obese class [...] Unknown Unknown 01/01/23 Unknown Unknown Active [facility] Patient Care team information Care Team Personnel Name: Justa Reynoso Position: [facility] RN Member Role: Primary Care Nurse Name: Mayra Clay RN Position: [facility] RN Member Role: Primary Care Nurse Name: Keturah Felipe NP Position: [facility] PCO Associate Professional Member Role: PCP Address: Address: [address] [place] [id number] Name: Sonal Dumont RN Position: [facility] RN Supv Member Role: Primary Care Nurse Name: Beata Chavez RN Position: [facility] RN Member Role: Primary Care Nurse Name: Priscilla Pelletier RN Position: [facility] RN Member Role: Primary Care Nurse Care Team Related Persons Name: HIRAL EGAN Address: [place] [address] Name: DENISHA EGAN Address: [place] [address] Name: ELLA MUNGUIA Address: home [address] [place] [id number] Name: HIEN ANGELES Address: home UNKNOWN
--- OUTSIDE RECORDS SUMMARY | 2022-09-13 22:45 | XMS_ITS | Continuity of Care Document ---
Author Name Unknown Organization [facility] ter Address [address] [place] [address]- Care Team Providers Care Seafood Technology Specialist Name Role Phone Matteo ASSISTANT RESEARCH SCIENTIST, Keturah Veronica Primary Care Physician En[place] [facility] Date(s): 08/11/22 - 08/12/[address] [address]- Encounter Diagnosis Agitated(Final) - 08/11/22 Discharge Disposition: A-D/C Home Attending Physician: Claudia Kaur MD Admitting Physician: Claudia Kaur MD Referring Physician: Not on Staff, Referring [...] inactivated 2 07/03/19 Gi tejal 1Result Comment: [facility]: [id number] 2Result Comment: [facility]# [id number] Medications calcium carbonate 500 mg (200 mg [...] Refills, Maintenance, 07/30/22 9:30:00 EST, ER Tablet, [facility]- 91547, Partial fill upon patient request if the prescription is for a schedule II opioid drug., 168, cm... Start Date: 07/30/22 Status: Ordered docusate-senna 50 mg-187 mg oral tablet 2 tablet, By Mouth, Daily at bedtime, # 56 tablet, 0 Refills, Maintenance, 08/03/22 7:11:00 EST, [facility]10565, 28, TAKE 2 TABLETS BY MOUTH DAILY AT BEDTIME, 168, cm, 07/30/22 8:06:00 EST, Height, 88.9, kg, 07/22/22 18:11:00 EST, Dry Weight Start Date: 08/03/22 Status: Ordered Dulcolax 10 mg rectal suppository 1 supp = 10 mg, Rectally, Daily, PRN for constipation, 1 supp daily as needed for constipation, # 10 supp, 0 Refills, Maintenance, 02/03/22 15:20:00 EDT, Suppository, [facility]-[id number], Partial fill upon patient request if the prescri... Start Date: 02/03/22 Status: Ordered Fish Oil 1000 mg oral capsule 1 capsule = 1,000 mg, By Mouth, 2 times a day, may keep in fridge or freezer, # 60 capsule, 5 Refills, Maintenance, 05/05/22 16:21:00 EST, Capsule, [facility]-[id number], Partial fill upon patient request if the prescription is for a sche... Start Date: 05/05/22 Stop Date: 11/01/22 Status: Ordered FLUoxetine 20 mg oral capsule 40 mg, 2, capsule, By Mouth, Daily, # 60 capsule, Refills 0, Tot. Refills 0, Maintenance, 07/30/22 9:30:00 EST, [facility], Partial fill uponpatient request if the prescription is for a schedu... Start Date: 07/30/22 Status: Ordered hydrOXYzine pamoate 50 mg oral capsule 1 capsule = 50 mg, By Mouth, Every 6 hours, PRN Anxiety, # 120 capsule, 0 Refills, Maintenance, 07/30/22 9:34:00 EST, Capsule, [facility], Partial fill upon patient request ifthe prescription is for a schedule II opioid drug.,... Start Date: 07/30/22 Status: Ordered ibuprofen 600 mg oral tablet 600 mg, 1, tablet, By Mouth, 4 times a day, PRN, # 40 tablet, Refills 3, Tot. Refills 3, Acute 09/10/22 12:57:00 EDT, for pain, 08/10/22 12:56:00 EST, Route to Pharmacy Electronically, [facility], Partial fill upon patient requ... Start Date: 08/10/22 Stop Date: 09/10/22 Status: Ordered Linzess 145 mcg oral capsule 1 capsule, By Mouth, Daily in AM, # 30 capsule, 0 Refills, [facility] 76245, 168, cm, 11/20/21 8:41:00 EDT, Height, 85.8, kg, 04/07/21 14:21:00 EDT, Dry Weight Start Date: 01/08/22 Status: Ordered loratadine 10 mg oral tablet 10 mg, 1, tablet, By Mouth, Daily in AM, # 30 tablet, Refills 0, Tot. Refills 0, Maintenance, 07/30/22 9:30:00 EST, [facility] to Pharm[facility] Electronically, [facility], Partial fill upon patient request if the prescription is for a sc... Start Date: 07/30/22 Status: Ordered LORazepam 1 mg oral tablet 1 tablet = 1 mg, By Mouth, Every 6 hours, PRN Agitation, # 120 tablet, 0 Refills, Maintenance, 07/30/22 9:30:00 EST, Tablet, [facility]612[facility], Partial fill upon patient request if the prescription is for a schedule II opioid drug., 1... Start Date: 07/30/22 Status: Ordered melatonin 10 mg oral tablet 1 tablet = 10 mg, By Mouth, Daily at bedtime, PRN as needed for insomnia, # 30 tablet, 0 Refills, Maintenance, 07/30/22 9:31:00 EST, Tablet, [facility]-91634, Partial fill upon patient request if the prescription is for a schedule II... Start Date: 07/30/22 Status: Ordered olanzapine 5 mg oral tablet 5 mg, 1, tablet, By Mouth, 2 times a day, # 60 tablet, Refills 0, Tot. Refills 0, Maintenance, 07/30/22 9:32:00 EST, Route to Pharmacy Electronically, [facility]-58511, Partial fillupon patient request if the prescription [...] 07/30/22 9:34:00 EST, Route to Pharmacy Electronically, [facility]-82932, Partial fill uponpatient request if the prescription is for a schedu... Start Date: 07/30/22 Status: Ordered psyllium 3.4 gm/5.2 gm oral powder for reconstitution = 1.7 Gm, By Mouth, 3 times a day, # 1,042 Gm, 0 Refills, Maintenance, 07/30/22 9:41:00 EST, REC Powder, [facility]-82200, Partial fill upon patient request if the prescription is for a schedule II opioid drug., 168, cm, 07/30/22 8:0... Start Date: 07/30/22 Status: Ordered QUEtiapine 100 mg oral tablet 300 mg, 3, tablet, By Mouth, 2 times a day, # 180 tablet, Refills 0, Tot. Refills 0, Maintenance, 07/30/22 9:34:00 EST, Route to Pharmacy Electronically, [facility]-[address]162, Partial fill upon patient request if the prescription is for... Start Date: 07/30/22 Status: Ordered Problem List Condition Confirmation Course Effective Dates Status H ealth Status Informant Allergic rhinitis Confirmed Active Bipolar disorder Confirmed Active Chronic constipation Confirmed Active Developmental disability Confirmed Active Intermittent explosive disorder in adult Confirmed Active Chronic GERD Confirmed Active Injury of right shoulder Confirmed 08/15/20 Active Lives in nursing home Confirmed Active Obese class I Confirmed Active Obesity Confirmed Active Pain of right humerus Confirmed 08/15/20 Active Annual physical exam Confirmed Active Tobacco abuse Confirmed Active Umbilical hernia Confirmed Active Vital Signs Most recent to oldest [Reference Range]: 1 2 3 Oxygen Saturation [94-100 %] 99 % (08/12/22 12:09 PM) 96 % (08/12/22 5:43 AM) 95 % (08/12/22 4:09 AM) Pulse Rate [55-90 bpm] 84 bpm (08/12/22 12:09 PM) 55 bpm (08/12/22 5:43 AM) 78 bpm (08/12/22 4:09 AM) Blood Pressure [90-138/55-84 mm Hg] 122/72mm Hg (08/12/22 12:09 PM) 105/82mm Hg (08/12/22 5:43 AM) 94/50mm Hg (08/12/22 4:09 AM) Respiratory Rate [16-30 br/min] 16 br/min (08/12/22 12:09 PM) 15 br/min *L* (08/12/22 5:43 AM) 20 br/min (08/12/22 4:09 AM) Temperature [96.8-100.4 DegF] 98.7 DegF (08/12/22 12:09 PM) 98.7 DegF (08/12/22 5:43 AM) 98.7 DegF (08/11/22 7:48 PM) Mode of Delivery (Oxygen) Room air (08/12/22 12:09 PM) Room air (08/12/22 5:43 AM) Room air (08/12/22 4:09 AM) Blood pressure sites Arm, right (08/12/22 12:09 PM) Arm, left (08/12/22 5:43 AM) Temperature Route Oral (08/12/22 12:09 PM) Oral (08/12/22 5:43 AM) Oral (08/11/22 7:48 PM) Social History Social History Type Response [...] Care Team Personnel Name: Justa Reynoso Position: [facility] RN Member Role: Primary Care Nurse Name: Mayra Clay RN Position: [facility] RN Member Role: Primary Care Nurse Name: Keturah Felipe NP Position: [facility] PCO Associate Professional Member Role: PCP Address: Address: [address] [place] [id number]- Name: Sonal Dumont RN Position: [facility] RN Supv Member Role: Primary Care Nurse Name: Beata Chavez RN Position: [facility] RN Member Role: Primary Care Nurse Name: Priscilla Pelletier RN Position: [facility] RN Member Role: Primary Care Nurse [facility] Attending Position: [facility] ED Attendings Patient Name: Jaziel Granados RN Position: [facility] ED RN W/OE and Tasks Member Role: Patient Care Provider Name: Marie Sauceda Position: [facility] ED TA [facility] Member Role: Icing Machine Operator Name: Claudia Kaur MD Position: [facility] Resident Member Role: Admitting Physician Address: Address: [address] [place] [address] [place] [address]- Care Team Related Persons Name: HIRAL Address: [place] [facility] [place] [facility] [place] [address] Name: DENISHA Address: [place] [facility] [place] [facility] [place] [address] Name: ELLA MUNGUIA Address: home [address] [place] [id number] Name: HIEN ANGELES Address: home [place]KNOWN
--- OUTSIDE RECORDS SUMMARY | 2022-09-13 22:45 | XMS_ITS | Continuity of Care Document ---
Author Name Unknown Organization [facility] Address [address] [place] [address]- Care Team Providers Care Drafting Engineer Name Role Phone Matteo COMMUNITY HEALTH PROGRAM REPRESENTATIVE, Keturah Veronica Primary Care Physician Encounter [facility] NBR [id number] Date(s): 08/10/22 - 08/17/22 [facility] [address] [place] [address]- Encounter Diagnosis Major depressive disorder with psychotic features(Discharge Diagnosis) - 08/10/22 Intermittent explosive disorder in adult(Discharge Diagnosis) - 08/10/22 Attending Physician: Not on Staff, Attending MD Allergies, Adverse Reactions, Alerts Substance Reaction Severity Status Risperdal unkown Active Immunizations Given and Recorded Vaccine Date Status Refusal Reason tetanus/diphtheria/pertussis, acel(Tdap) 1 07/09/22 Given SARS-CoV-2 (COVID-19) mRNA-1273 vaccine 06/09/21 R ecorded SARS-CoV-2 (COVID-19) mRNA-1273 vaccine 04/17/21 R ecorded influenza virus vaccine, inactivated 04/17/21 Lebron rded influenza virus vaccine, inactivated 2 07/03/19 Gi tejal 1Result Comment: [facility]: 07703-718-74 2Result Comment: [facility]# 61857-855-06 Medications calcium carbonate 500 mg (200 mg [...] Refills, Maintenance, 07/30/22 9:30:00 EST, ER Tablet, [facility]- [id number], Partial fill upon patient request if the prescription is for a schedule II opioid drug., 168, cm... Start Date: 07/30/22 Status: Ordered docusate-senna 50 mg-187 mg oral tablet 2 tablet, By Mouth, Daily at bedtime, # 56 tablet, 0 Refills, Maintenance, 08/03/22 7:11:00 EST, [id number], 28, TAKE 2 TABLETS BY MOUTH DAILY AT BEDTIME, 168, cm, 07/30/22 8:06:00 EST, Height, 88.9, kg, 07/22/22 18:11:00 EST, Dry Weight Start Date: 08/03/22 Status: Ordered Dulcolax 10 mg rectal suppository 1 supp = 10 mg, Rectally, Daily, PRN for constipation, 1 supp daily as needed for constipation, # 10 supp, 0 Refills, Maintenance, 02/03/22 15:20:00 EDT, Suppository, [facility]-[id number], Partial fill upon patient request if the prescri... Start Date: 02/03/22 Status: Ordered Fish Oil 1000 mg oral capsule 1 capsule = 1,000 mg, By Mouth, 2 times a day, may keep in fridge or freezer, # 60 capsule, 5 Refills, Maintenance, 05/05/22 16:21:00 EST, Capsule, [facility]-[id number], Partial fill upon patient request if the prescription is for a sche... Start Date: 05/05/22 Stop Date: 11/01/22 Status: Ordered FLUoxetine 20 mg oral capsule 40 mg, 2, capsule, By Mouth, Daily, # 60 capsule, Refills 0, Tot. Refills 0, Maintenance, 07/30/22 9:30:00 EST, Route to Pharmacy Electronically, [facility]-[id number], Partial fill uponpatient request if the prescription is for a schedu... Start Date: 07/30/22 Status: Ordered hydrOXYzine pamoate 50 mg oral capsule 1 capsule = 50 mg, By Mouth, Every 6 hours, PRN Anxiety, # 120 capsule, 0 Refills, Maintenance, 07/30/22 9:34:00 EST, Capsule, [facility]-[id number], Partial fill upon patient request ifthe prescription is for a schedule II opioid drug.,... Start Date: 07/30/22 Status: Ordered ibuprofen 600 mg oral tablet 600 mg, 1, tablet, By Mouth, 4 times a day, PRN, # 40 tablet, Refills 3, Tot. Refills 3, Acute 09/10/22 12:57:00 EDT, for pain, 08/10/22 12:56:00 EST, Route to Pharmacy Electronically, [facility], Partial fill upon patient requ... Start Date: 08/10/22 Stop Date: 09/10/22 Status: Ordered Linzess 145 mcg oral capsule 1 capsule, By Mouth, Daily in AM, # 30 capsule, 0 Refills, [facility] [id number], 168, cm, 11/20/21 8:41:00 EDT, Height, 85.8, kg, 04/07/21 14:21:00 EDT, Dry Weight Start Date: 01/08/22 Status: Ordered loratadine 10 mg oral tablet 10 mg, 1, tablet, By Mouth, Daily in AM, # 30 tablet, Refills 0, Tot. Refills 0, Maintenance, 07/30/22 9:30:00 EST, [facility], Partial fill upon patient request if the prescription is for a sc... Start Date: 07/30/22 Status: Ordered LORazepam 1 mg oral tablet 1 tablet = 1 mg, By Mouth, Every 6 hours, PRN Agitation, # 120 tablet, 0 Refills, Maintenance, 07/30/22 9:30:00 EST, Tablet, [facility]-[id number], Partial fill upon patient request if the prescription is for a schedule II opioid drug., 1... Start Date: 07/30/22 Status: Ordered melatonin 10 mg oral tablet 1 tablet = 10 mg, By Mouth, Daily at bedtime, PRN as needed for insomnia, # 30 tablet, 0 Refills, Maintenance, 07/30/22 9:31:00 EST, Tablet, [facility]-[id number], Partial fill upon patient request if the prescription is for a schedule II... Start Date: 07/30/22 Status: Ordered olanzapine 5 mg oral tablet 5 mg, 1, tablet, By Mouth, 2 times a day, # 60 tablet, Refills 0, Tot. Refills 0, Maintenance, 07/30/22 9:32:00 EST, Route to Pharmacy Electronically, [facility]-[id number], Partial fillupon patient request if the prescription [...] 07/30/22 9:34:00 EST, Route to Pharmacy Electronically, [facility]-[id number], Partial fill uponpatient request if the prescription is for a schedu... Start Date: 07/30/22 Status: Ordered psyllium 3.4 gm/5.2 gm oral powder for reconstitution = 1.7 Gm, By Mouth, 3 times a day, # 1,042 Gm, 0 Refills, Maintenance, 07/30/22 9:41:00 EST, REC Powder, [facility]-[id number], Partial fill upon patient request if the prescription is for a schedule II opioid drug., 168, cm, 07/30/22 8:0... Start Date: 07/30/22 Status: Ordered QUEtiapine 100 mg oral tablet 300 mg, 3, tablet, By Mouth, 2 times a day, # 180 tablet, Refills 0, Tot. Refills 0, Maintenance, 07/30/22 9:34:00 EST, Route to Pharmacy Electronically, [facility] [place]-[id number], Partial fill upon patient request if the prescription is for... Start Date: 07/30/22 Status: Ordered Problem List Condition Confirmation Course Effective Dates Status H ealth Status Informant Allergic rhinitis Confirmed Active Bipolar disorder Confirmed Active Chronic constipation Confirmed Active Developmental disability Confirmed Active Intermittent explosive disorder in adult Confirmed Active Chronic GERD Confirmed Active Injury of right shoulder Confirmed 08/15/20 Active Lives in detention Confirmed Active Obese class I Confirmed Active Obesity Confirmed Active Pain of right humerus Confirmed 08/15/20 Active Annual physical exam Confirmed Active Tobacco abuse Confirmed Active Umbilical hernia Confirmed Active Diagnosis Diagnosis Type Effective Dates Health Status Clinical Service Informant Major depressive disorder with psychotic features Discharge Diagnosis 08/10/22 Intermittent explosive disorder in adult Discharge Diagnosis 08/10/22 Vital Signs Most recent to oldest [Reference Range]: 1 Height 168 cm (08/10/22 12:39 PM) Weight 91.0 kg (08/10/22 12:39 PM) Oxygen Saturation [94-100 %] 97 % (08/10/22 12:39 PM) Pulse Rate [55-90 bpm] 69 bpm (08/10/22 12:39 PM) Body Mass Index [18.5-24.99 kg/m2] 32.24 kg/m2 *>HHI* (08/10/22 12:39 PM) Blood Pressure [90-138/55-84 mm Hg] 116/ 64mm Hg (08/10/22 12:39 PM) Temperature [96.8-100.4 DegF] 97.6 DegF (08/10/22 12:39 PM) Liters per Minute 0 L/min (08/10/22 12:39 PM) Mode of Delivery (Oxygen) Room air (08/10/22 12:39 PM) Blood pressure sites Arm, left (08/10/22 12:39 PM) Temperature Route Temporal (08/10/22 12:39 PM) Weight Obtained Via Standing scale (08/10/22 12:39 PM) Social History Social History Type Response Smoking Status Former smoker, quit more than 30 days ago; Other: quit 1 year ago; entered on: 04/29/22 Sex Implantable Device List Procedure Provider Procedure Date Device Type Site Repair Hernia Umbilical Laparoscopic Mes Jordan WHITE, Fifi Hernández 04/07/21 Unknown Umbilicus Device Identifier Serial Number Lot or Batch Number Manufacturing Date Expiration Date Distinct Identification Code MRI Safety Implantable Status Assigning Authority Unknown Unknown Unknown Unknown 01/01/23 Unknown Unknown Active Charley yang Note * Yazmin Cunha: PERFORM, SIGN, VERIFY Event Display: Patient Education/Instruction Authored Date: [id number] [facility] *[facility] Clinical Summary Name MARGE SIMMONS Age 31 Years 1990 PCP Matteo COMMUNITY HEALTH PROGRAM REPRESENTATIVE, Keturah Veronica PCP Visit Date 08/10/2022 12:29:00 Additional Instructions: Scheduled Appointments?? Future Appointments ?No Future Appointments Scheduled Follow-Up Instructions ?? Diagnosis Intermittent explosive disorder; Major depressive disorder, single episode, severe with psychotic features Medications: Please continue your medications until treatment is completed or stopped by your provider. Discuss any questions related to medications with your provider. New Medications [place] [id number], [address] [place] [phone], [phone] Ibuprofen (ibuprofen 600 mg oral tablet) 1 tab(s) Oral 4 times a day as needed for pain. Refills: 3. Next Dose: Medications to Continue with No [...] as needed Dyspepsia. Next Dose: Diclofenac Topical (diclofenac 1% topical gel) 4 gram Topically 4 times a day as needed Pain , Moderate. Next Dose: Divalproex Sodium (divalproex sodium 500 mg oral tablet, extended release) 3 tab(s) Oral Daily at Bedtime. Refills: 0. Next Dose: Docusate-Senna (docusate-senna 50 mg-187 mg oral tablet) 2 tab(s) Oral Daily at Bedtime. Refills: 0. Next Dose: Fluoxetine (FLUoxetine 20 mg oral capsule) 2 capsule Oral Daily. Refills: 0. Next Dose: HydrOXYzine (hydrOXYzine pamoate 50 mg oral capsule) 1 capsule Oral every 6 hours as needed Anxiety. Refills: 0. Next Dose: linaclotide (Linzess 145 mcg oral capsule) 1 capsule Oral Daily in the morning. Refills: 0. Next Dose: Loratadine (loratadine 10 mg oral tablet) 1 tab(s) Oral Daily in the morning. Refills: 0. Next Dose: Lorazepam (LORazepam 1 mg oral tablet) 1 tab(s) Oral every 6 hours as needed Agitation. Refills: 0. Next Dose: Melatonin (melatonin 10 mg oral tablet) 1 tab(s) Oral Daily at Bedtime as needed as needed for insomnia. Refills: 0. Next Dose: Olanzapine (olanzapine 5 mg oral tablet) 1 tab(s) Oral twice a day. Refills: 0. Next Dose: [place]-3 Polyunsaturated Fatty Acids (Fish Oil 1000 mg oral capsule) 1 capsule Oral twice a day for 30 Days. may keep in fridge or freezer. Refills: 5. Next Dose: Pantoprazole (pantoprazole 20 mg oral delayed release tablet) 20 Milligram Oral Daily in the morning. Refills: 0. Next Dose: Propranolol (propranolol 80 mg oral capsule, extended release) 1 capsule Oral Daily. Refills: 0. Next Dose: Psyllium (psyllium 3.4 gm/5.2 gm oral powder for reconstitution) 1.7 gram Oral 3 times a day. Refills: 0. Next Dose: Quetiapine (QUEtiapine 100 mg oral tablet) 3 tab(s) Oral twice a day. Refills: 0. Next Dose: Allergy Info:?? Risperdal Medications Given This Visit Future Orders ?No future orders Vital Signs Height 168 cm Weight 91.0 kg BMI 32.24 kg/m2 Blood Pressure 116 mm Hg/64 mm Hg Temperature 97.6 DegF Pulse Rate 69 bpm Respiratory Rate 02 Sat Mode of Delivery 97 %/Room air You can now view a summary of your hospital visit from the comfort of your home through a free online portal called Finalta. Finalta is a website that allows you to securely view your medical information including discharge summary, medications and follow-up visits. ??You can alsosend a secure electronic message to your doctor???s office to request appointments, renew medications or just ask a question. You can enroll at [email or web address] or register during your next office visit. [...] your primary care provider or pharmacist, as appropriate. ??This information is not intended to serve as substitution for assessment and evaluation by a qualified health care provider. If you do not have a primary care provider, you may find a [facility] provider by calling [facility] at [phone]. For information about the plan of care including goals and instructions for your diagnosis, please see the patient education orders section of this document. Patient Education Materials?? The content of this educational material or handout may have been modified, supplemented, or adapted from its original content and format to support your individualized medical care. Patient Care team information Care Team Personnel Name: Justa Reynoso Position: S RN Member Role: Primary Care Nurse Name: Mayra Clay RN Position: S RN Member Role: Primary Care Nurse Name: Keturah Felipe NP Position: [facility] Associate Professional Member Role: PCP Address: Address: [address] [place] [id number] Name: Sonal Dumont RN Position: [facility] RN Supv Member Role: Primary Care Nurse Name: Beata Chavez RN Position: S RN Member Role: Primary Care Nurse Name: Priscilla Pelletier RN Position: S RN Member Role: Primary Care Nurse Care Team Related Persons Name: HIRAL EGAN Address: [place] [address] Name: DENISHA EGAN Address: home [place], [place] Name: ELLA MUNGUIA Address: home [address] [place] [id number] Name: HIEN ANGELES Address: home [place]KNOWN
--- OUTSIDE RECORDS SUMMARY | 2022-09-13 22:45 | XMS_ITS | Continuity of Care Document ---
Author Name [facility] Organization [facility] Address [address] [place] [address]- Care Team Providers Care Needle Polisher Name Role Phone Matteo GARDE MANAGER, Keturah Veronica Primary Care Physician Encounter [facility] NBR [id number] Date(s): 07/09/22 - 07/16/22 [facility] [address] [place] [address]- Encounter Diagnosis Chronic constipation(Discharge Diagnosis) - 07/09/22 Need for Tdap vaccination(Discharge Diagnosis) - 07/09/22 Attending Physician: Keturah Felipe NP Allergies, Adverse Reactions, Alerts Substance Reaction Severity Status Risperdal unkown Active Immunizations Given and Recorded Vaccine Date Status Refusal Reason tetanus/diphtheria/pertussis, acel(Tdap) 1 07/09/22 Given SARS-CoV-2 (COVID-19) mRNA-1273 vaccine 06/09/21 R ecorded SARS-CoV-2 (COVID-19) mRNA-1273 vaccine 04/17/21 R ecorded influenza virus vaccine, inactivated 04/17/21 Lebron rded influenza virus vaccine, inactivated 2 07/03/19 Gi tejal 1Result Comment: [facility]: [id number] 2Result Comment: [facility]# 84284-570-92 Medications calcium carbonate 500 mg (200 mg elemental calcium) oral tablet, chewable 500 mg, 1, tablet, By Mouth, Every 4 hours, PRN, Refills 0, Maintenance, Dyspepsia, 04/03/21 9:49:00 EDT, Partial fill upon patient request if the prescription is for a schedule II opioid drug. Start Date: 04/03/21 Status: Ordered Depakote 500 mg oral enteric coated tablet 3 tablets, By Mouth, Daily at bedtime, 0 Refills, Maintenance, 04/03/21 9:43:00 EDT, EC Tablet, Partial fill upon patient request if the prescription is for a schedule II opioid drug. Start Date: 04/03/21 Status: Ordered docusate-senna 50 mg-187 mg oral tablet 2 tablet, By Mouth, Daily at bedtime, # 56 tablet, 3 Refills, Maintenance, 04/15/22 16:25:00 EST, [id number], 28, TAKE 2 TABLETS BY MOUTH DAILY AT BEDTIME, 173, cm, 04/02/22 12:51:00 EDT,Height, 85.8, kg, 04/07/21 14:21:00 EDT, Dry Weight Start Date: 04/15/22 Status: Ordered Dulcolax 10 mg rectal suppository 1 supp = 10 mg, Rectally, Daily, PRN for constipation, 1 supp daily as needed for constipation, # 10 supp, 0 Refills, Maintenance, 02/03/22 15:20:00 EDT, Suppository, [facility]-[id number], Partial fill upon patient request if the prescri... Start Date: 02/03/22 Status: Ordered Fish Oil 1000 mg oral capsule 1 capsule = 1,000 mg, By Mouth, 2 times a day, may keep in fridge or freezer, # 60 capsule, 5 Refills, Maintenance, 05/05/22 16:21:00 EST, Capsule, [facility]-[id number], Partial fill upon patient request if the prescription is for a sche... Start Date: 05/05/22 Stop Date: 11/01/22 Status: Ordered FLUoxetine 20 mg oral capsule 20 mg, 1, capsule, By Mouth, Daily, Maintenance, 04/11/22 14:41:00 EDT, Partial fill upon patient request if the prescription is for a schedule II opioid drug. Start Date: 04/11/22 Status: Ordered ibuprofen 600 mg oral tablet 600 mg, 1, tablet, By Mouth, Every 6 hours, PRN, # 40 tablet, Refills 0, Maintenance, Pain , Moderate, 04/11/22 14:44:00 EDT, Partial fill upon patient request if the prescription is for a schedule II opioid drug. Start Date: 04/11/22 Status: Ordered Linzess 145 mcg oral capsule 1 capsule, By Mouth, Daily in AM, # 30 capsule, 0 Refills, [facility] [id number], 168, cm, 11/20/21 8:41:00 EDT, Height, 85.8, kg, 04/07/21 14:21:00 EDT, Dry Weight Start Date: 01/08/22 Status: Ordered loratadine 10 mg oral tablet 1, tablet, By Mouth, Daily in AM, # 28 tablet, Refills 5, Maintenance, 06/10/22 23:46:00 EST[id number], 173, cm, 04/29/22 8:45:00 EST, Height, 85.8, kg, 04/07/21 14:21:00 EDT, Dry Weight Start Date: 06/10/22 Status: Ordered LORazepam 1 mg oral tablet 1 tablet = 1 mg, By Mouth, 4 times a day, Maintenance, 04/11/22 14:37:00 EDT, Partial fill upon patient request if the prescription is for a schedule II opioid drug. Start Date: 04/11/22 Status: Ordered melatonin 3 mg oral tablet 2 tablet = 6 mg, By Mouth, Daily at bedtime, PRN for insomnia, Maintenance, 04/11/22 14:45:00 EDT, Tablet, Partial fill upon patient request if the prescription is for a schedule II opioid drug. Start Date: 04/11/22 Status: Ordered Metamucil 3.4 gm/5.2 gm oral powder for reconstitution = 12 Gm, By Mouth, Daily, 0 Refills, Maintenance, 08/27/21 13:21:00 EDT, Partial fill upon patient request if the prescription is for a schedule II opioid drug. Start Date: 08/27/21 Status: Ordered omeprazole 20 mg oral enteric coated capsule See Instructions, TAKE 1 CAPSULE BY MOUTH EVERY MORNING 30 MINUTES BEFORE MEAL, # 28 capsule, 2 Refills, Maintenance, 05/14/22 10:42:00 EST, [facility] [id number], 173, cm, 04/29/22 8:45:00 EST, Height, 85.8, kg, 04/07/21 14:21:00 EDT, Dry Weight Start Date: 05/14/22 Status: Ordered QUEtiapine 300 mg oral tablet 1 tablet = 300 mg, By Mouth, 2 times a day, Maintenance, 04/11/22 14:42:00 EDT, Partial fill upon patient request if the prescription is for a schedule II opioid drug. Start Date: 04/11/22 Status: Ordered SEROquel 200 mg oral tablet 2 tablets, By Mouth, Daily at bedtime, Refills 0, Maintenance, 07/21/21 12:44:00 EST, Partial fill upon patient request if the prescription is for a schedule II opioid drug. Start Date: 07/21/21 Status: Ordered Voltaren 1% topical gel 1 application, Topically, 4 times a day, PRN for pain, # 100 Gm, 0 Refills, Maintenance, 04/02/22 13:48:00 EDT, Gel, [facility]-[id number], Partial fill upon patient request if the [...] right shoulder Confirmed 08/15/20 Active Lives in senior care Confirmed Active Obese class I Confirmed Active Obesity Confirmed Active Pain of right humerus Confirmed 08/15/20 Active Annual physical exam Confirmed Active Tobacco abuse Confirmed Active Umbilical hernia Confirmed Active Diagnosis Diagnosis Type Effective Dates Health Status Clinical Service Informant Chronic constipation Discharge Diagnosis 07/09/22 Need for Tdap vaccination Discharge Diagnosis 07/09/22 Vital Signs Most recent to oldest [Reference Range]: 1 Height 173 cm (07/09/22 9:18 AM) Weight 93.2 kg (07/09/22 9:18 AM) Oxygen Saturation [94-100 %] 98 % (07/09/22 9:18 AM) Pulse Rate [55-90 bpm] 101 bpm *H* (07/09/22 9:18 AM) Body Mass Index [18.5-24.99 kg/m2] 31.14 kg/m2 *>HHI* (07/09/22 9:18 AM) Blood Pressure [90-138/55-84 mm Hg] 115/ 81mm Hg (07/09/22 9:18 AM) Respiratory Rate [16-30 br/min] 18 br/mi n (07/09/22 9:18 AM) Blood pressure sites Arm, right (07/09/22 9:18 AM) Social History Social History Type Response [...] Unknown 01/01/23 Unknown Unknown Active Unk nown Note * Yazmin uCnha: PERFORM, SIGN, VERIFY Event Display: Patient Education/Instruction Authored Date: [id number] *[facility] Med Bltn Clinical Summary Name MARGE SIMMONS Age 31 Years 1990 PCP Matteo GARDE MANAGER, Keturah Veronica PCP Visit Date 07/09/2022 09:09:00 Additional Instructions: Scheduled Appointments?? Future Appointments ?No Future Appointments Scheduled Follow-Up Instructions ?? Diagnosis Other constipation; Encounter for immunization Medications: Please continue your medications until treatment is completed or stopped by your provider. Discuss any questions related to medications with your provider. Medications to Continue with No Changes These [...] tab(s) Oral Daily in the morning. Refills: 5. Next Dose: Lorazepam (LORazepam 1 mg oral tablet) 1 tab(s) Oral 4 times a day. Next Dose: Melatonin (melatonin 3 mg oral tablet) 2 tab(s) Oral Daily at Bedtime as needed for insomnia. Next Dose: [place]-3 Polyunsaturated Fatty Acids (Fish Oil 1000 mg oral capsule) 1 capsule Oral twice a day for 30 Days. may keep in fridge or freezer. Refills: 5. Next Dose: Omeprazole (omeprazole 20 mg oral enteric coated capsule) TAKE 1 CAPSULE BY MOUTH EVERY MORNING 30 MINUTES BEFORE MEAL. Refills: 2. Next Dose: Psyllium (Metamucil 3.4 gm/5.2 gm oral powder for reconstitution) 12 gram Oral Daily. Next Dose: Quetiapine (QUEtiapine 300 mg oral tablet) 1 tab(s) Oral twice a day. Next Dose: Quetiapine (SEROquel 200 mg oral tablet) 2 tablets Oral Daily at Bedtime. Next Dose: Allergy Info:?? Risperdal Medications Given This Visit Medication Dose Route tetanus/diphtheria/pertussis, acel(Tdap) ((Tdap) diphtheria/pertussis, acel/tetanus vacc) 0.5 mL Intramuscular Future Orders ?No future orders Vital Signs Height 173 cm Weight 93.2 kg BMI 31.14 kg/m2 Blood Pressure 115 mm Hg/81 mm Hg Temperature Pulse Rate 101 bpm Respiratory Rate 18 br/min 02 Sat Mode of Delivery 98 %/ You can now view a summary of your hospital visit from the comfort of your home through a free online portal called CYBRA. CYBRA is a website that allows you to securely view your medical information including discharge summary, medications and follow-up visits. ??You can alsosend a secure electronic message to your doctor???s office to request appointments, renew medications or just ask a question. You can enroll at [email or web address] or register during your next office [...] primary care provider, you may find a [facility] provider by calling [facility] at [phone]. For information about the plan of care including goals and instructions for your diagnosis, please see the patient education orders section of this document. Patient Education Materials?? The content of this educational material or handout may have been modified, supplemented, or adapted from its original content and format to support your individualized medical care. Patient Care team information Care Team Personnel Name: Keturah Felipe NP Position: [facility] Associate Professional Member Role: PCP Address: Address: [address] [place] [id number]- Care Team Related Persons Name: HIRAL EGAN Address: [place] [address] Name: DENISHA EGAN Address: [place] [address] Name: ELLA MUNGUIA Address: home [address] [place] [id number] Name: HIEN ANGELES Address: home [place]
--- OUTSIDE RECORDS SUMMARY | 2022-09-13 22:46 | XMS_ITS | Continuity of Care Document ---
Author Name Unknown Organization [facility] Address [address] [place] [address]- Care Team Providers Care Medicine Teacher Name Role Phone Matteo BELT PICKER, Keturah Veronica Primary Care Physician Encounter [facility] NBR [id number] Date(s): 08/10/22 - 09[facility]09/[facility] [address] [id number]- Attending Physician: Bel Galloway Admitting Physician: Bel [...] inactivated 2 07/03/19 Gi tejal 1Result Comment: [facility]: 45956-404-40 2Result Comment: [facility]# 24081-515-37 Medications calcium carbonate 500 mg (200 mg [...] Refills, Maintenance, 07/30/22 9:30:00 EST, ER Tablet, [facility]- [id number], Partial fill upon patient request if the prescription is for a schedule II opioid drug., 168, cm... Start Date: 07/30/22 Status: Ordered docusate-senna 50 mg-187 mg oral tablet 2 tablet, By Mouth, Daily at bedtime, # 56 tablet, 3 Refills, Maintenance, 09/01/22 17:25:00 EDT, [id number], 28, TAKE 2 TABLETS BY MOUTH DAILY AT BEDTIME, 168, cm, 08/10/22 12:39:00 EST,Height, 88.9, kg, 07/22/22 18:11:00 EST, Dry Weight Start Date: 09/01/22 Status: Ordered Dulcolax 10 mg rectal suppository 1 supp = 10 mg, Rectally, Daily, PRN for constipation, 1 supp daily as needed for constipation, # 10 supp, 0 Refills, Maintenance, 02/03/22 15:20:00 EDT, Suppository, [facility]-[id number], Partial fill upon patient request if the prescri... Start Date: 02/03/22 Status: Ordered Fish Oil 1000 mg oral capsule 1 capsule = 1,000 mg, By Mouth, 2 times a day, may keep in fridge or freezer, # 60 capsule, 5 Refills, Maintenance, 05/05/22 16:21:00 EST, Capsule, [facility]-[id number], Partial fill upon patient request if the prescription is for a sche... Start Date: 05/05/22 Stop Date: 11/01/22 Status: Ordered FLUoxetine 20 mg oral capsule 40 mg, 2, capsule, By Mouth, Daily, # 60 capsule, Refills 0, Tot. Refills 0, Maintenance, 07/30/22 9:30:00 EST, Route to Pharmacy Electronically, [facility]-[id number], Partial fill uponpatient request if the prescription is for a schedu... Start Date: 07/30/22 Status: Ordered hydrOXYzine pamoate 50 mg oral capsule 1 capsule = 50 mg, By Mouth, Every 6 hours, PRN Anxiety, # 120 capsule, 0 Refills, Maintenance, 07/30/22 9:34:00 EST, Capsule, [facility]-[id number], Partial fill upon patient request ifthe prescription is for a schedule II opioid drug.,... Start Date: 07/30/22 Status: Ordered ibuprofen 600 mg oral tablet 600 mg, 1, tablet, By Mouth, 4 times a day, PRN, # 40 tablet, Refills 3, Tot. Refills 3, Acute 09/10/22 12:57:00 EDT, for pain, 08/10/22 12:56:00 EST, Route to Pharmacy Electronically, [facility]-10113, Partial fill upon patient requ... Start Date: 08/10/22 Stop Date: 09/10/22 Status: Ordered Linzess 145 mcg oral capsule 1 capsule, By Mouth, Daily in AM, # 30 capsule, 0 Refills, [facility] [id number], 168, cm, 11/20/21 8:41:00 EDT, Height, 85.8, kg, 04/07/21 14:21:00 EDT, Dry Weight Start Date: 01/08/22 Status: Ordered Linzess 290 mcg oral capsule 1 capsule = 290 mcg, By Mouth, Daily, # 30 capsule, 6 Refills, Maintenance, 08/30/22 10:42:00 EDT, [facility]-[id number], Partial fill upon patient request if the prescription is for a schedule II opioid drug., 168, cm, 08/10/22 12:39:00... Start Date: 08/30/22 Stop Date: 03/28/23 Status: Ordered loratadine 10 mg oral tablet 10 mg, 1, tablet, By Mouth, Daily in AM, # 30 tablet, Refills 0, Tot. Refills 0, Maintenance, 07/30/22 9:30:00 EST, Route to Pharmacy Electronically, [facility]-[id number], Partial fill upon patient request if the prescription is for a sc... Start Date: 07/30/22 Status: Ordered LORazepam 1 mg oral tablet 1 tablet = 1 mg, By Mouth, Every 6 hours, PRN Agitation, # 120 tablet, 0 Refills, Maintenance, 07/30/22 9:30:00 EST, Tablet, [facility]-[id number], Partial fill upon patient request if the prescription is for a schedule II opioid drug., 1... Start Date: 07/30/22 Status: Ordered melatonin 10 mg oral tablet 1 tablet = 10 mg, By Mouth, Daily at bedtime, PRN as needed for insomnia, # 30 tablet, 0 Refills, Maintenance, 07/30/22 9:31:00 EST, Tablet, [facility]-[id number], Partial fill upon patient request if the prescription is for a schedule II... Start Date: 07/30/22 Status: Ordered olanzapine 5 mg oral tablet 5 mg, 1, tablet, By Mouth, 2 times a day, # 60 tablet, Refills 0, Tot. Refills 0, Maintenance, 07/30/22 9:32:00 EST, Route to Pharmacy Electronically, [facility]-[id number], Partial fillupon patient request if the prescription is for a s... Start Date: 07/30/22 Status: Ordered pantoprazole 20 mg oral delayed release tablet = 20 mg, By Mouth, Daily in AM, # 30 tablet, 5 Refills, Maintenance, 09/04/22 17:04:00 EDT, EC Tablet, 168, cm, 08/10/22 12:39:00 EST, Height, 88.9, kg, 07/22/22 18:11:00 EST, Dry Weight Start Date: 09/04/22 Status: Ordered propranolol 80 mg oral capsule, extended release 80 mg, 1, capsule, By Mouth, Daily, # 30 capsule, Refills 0, Tot. Refills 0, Maintenance, 07/30/22 9:34:00 EST, [facility], Partial fill uponpatient request if the prescription is for a schedu... Start Date: 07/30/22 Status: Ordered psyllium 3.4 gm/5.2 gm oral powder for reconstitution = 1.7 Gm, By Mouth, 3 times a day, # 1,042 Gm, 0 Refills, Maintenance, 08/30/22 10:41:00 EDT, REC Powder, [facility]-[id number], Partial fill upon patient request if the prescription is for a schedule II opioid drug., 168, cm, 08/10/22 12... Start Date: 08/30/22 Status: Ordered QUEtiapine 100 mg oral tablet 300 mg, 3, tablet, By Mouth, 2 times a day, # 180 tablet, Refills 0, Tot. Refills 0, Maintenance, 07/30/22 9:34:00 EST, Route to Pharmacy Electronically, [facility]-[id number], Partial fill upon patient request if the prescription is for... Start Date: 07/30/22 Status: Ordered Problem List Condition Confirmation Course Effective Dates Status H ealth Status Informant Allergic rhinitis Confirmed Active Bipolar disorder Confirmed Active Chronic constipation Confirmed Active Developmental disability Confirmed Active Intermittent explosive disorder in adult Confirmed Active Chronic GERD Confirmed Active Injury of right shoulder Confirmed 08/15/20 Active Lives in residential Confirmed Active Obese class I Confirmed Active [...] Unknown Unknown Active Unk nown Note * Event Display: CT Scan Chest, Non- BH Authored Date: * Event Display: CT Scan Head, Non- BH Authored Date: * Event Display: CT Scan Head, Non- BH Authored Date: * Event Display: Laboratory Result Scanned Authored Date: * Event Display: Laboratory Result Scanned Authored Date: * Event Display: Laboratory Result Scanned Authored Date: * Event Display: IR Special Procedures Authored Date: * Event Display: Cardiovascular Result Scanned Authored Date: * Event Display: IR Special Procedures Authored Date: XR Spine Views * Event Display: X-Ray Spine Authored Date: * Event Display: X-Ray Spine Authored Date: * Event Display: X-Ray Spine Authored Date: US Abdomen * Event Display: Ultrasound Abdomen Authored Date: * Event Display: Ultrasound Abdomen Authored Date: Patient Care team information Care Team Personnel Name: uJsta Reynoso Position: S RN Member Role: Primary Care Nurse Name: Mayra Clay RN Position: S RN Member Role: Primary Care Nurse Name: Keturah Felipe NP Position: [facility] Associate Professional Member Role: PCP Address: Address: [address] [place] [address]- [place] Name: Sonal Dumont RN Position: [facility] RN Supv Member Role: Primary Care Nurse Name: Beata Chavez RN Position: S RN Member Role: Primary Care Nurse Name: Priscilla Pelletier RN Position: [facility] RN Member Role: Primary Care Nurse Care Team Related Persons Name: HIRAL Address: [place] [address] Name: DENISHA Address: [place] [address] Name: ELLA MUNGUIA Address: home [address] [place] [address] Name: HIEN ANGELES Address: home [place]KNOWN
--- OUTSIDE RECORDS SUMMARY | 2022-09-13 22:47 | XMS_ITS | Continuity of Care Document ---
Author Name Unknown Organization [facility] Address [address] [place] [address]- Care Team Providers Care Commercial Green Building Architect Name Role Phone Matteo SUPERINTENDENT COMMUNICATIONS, Keturah Veronica Primary Care Physician Encounter [facility] ACCT [id number] Date(s): 06/09/22 - 08/11/[address] [address]- Encounter Diagnosis Chondrocostal junction syndrome [Tietze](Final) - Discharge Disposition: A-D/C Home Attending Physician: Rere Ashby NP Admitting Physician: Rere Ashby NP Referring Physician: Rere Ashby NP Allergies, Adverse Reactions, Alerts Substance Reaction Severity Status Risperdal unkown Active Immunizations Given and Recorded Vaccine Date Status Refusal Reason tetanus/diphtheria/pertussis, acel(Tdap) 1 07/09/22 Given SARS-CoV-2 (COVID-19) mRNA-1273 vaccine 06/09/21 R ecorded SARS-CoV-2 (COVID-19) mRNA-1273 vaccine 04/17/21 R ecorded influenza virus vaccine, inactivated 04/17/21 Lebron rded influenza virus vaccine, inactivated 2 07/03/19 Gi tejal 1Result Comment: [facility]: 33762-636-88 2Result Comment: [facility]# 50301-716-57 Medications calcium carbonate 500 mg (200 mg [...] Refills, Maintenance, 07/30/22 9:30:00 EST, ER Tablet, [facility] [place]- [id number], Partial fill upon patient request if the prescription is for a schedule II opioid drug., 168, cm... Start Date: 07/30/22 Status: Ordered docusate-senna 50 mg-187 mg oral tablet 2 tablet, By Mouth, Daily at bedtime, # 56 tablet, 0 Refills, Maintenance, 08/03/22 7:11:00 EST, [id number], 28, TAKE 2 TABLETS BY MOUTH DAILY [...] [facility] [place]-[id number], Partial fill upon patient request if the prescri... Start Date: 02/03/22 Status: Ordered Fish Oil 1000 mg oral capsule 1 capsule = 1,000 mg, By Mouth, 2 times a day, may keep in fridge or freezer, # 60 capsule, 5 Refills, Maintenance, 05/05/22 16:21:00 EST, Capsule, [facility] [place]-[id number], Partial fill upon patient request if the prescription is for a sche... Start Date: 05/05/22 Stop Date: 11/01/22 Status: Ordered FLUoxetine 20 mg oral capsule 40 mg, 2, capsule, By Mouth, Daily, # 60 capsule, Refills 0, Tot. Refills 0, Maintenance, 07/30/22 9:30:00 EST, Route to Pharmacy Electronically, [facility]-[id number], Partial fill uponpatient request if the prescription is for a schedu... Start Date: 07/30/22 Status: Ordered hydrOXYzine pamoate 50 mg oral capsule 1 capsule = 50 mg, By Mouth, Every 6 hours, PRN Anxiety, # 120 capsule, 0 Refills, Maintenance, 07/30/22 9:34:00 EST, Capsule, [facility]-[id number], Partial fill upon patient request ifthe prescription is for a schedule II opioid drug.,... Start Date: 07/30/22 Status: Ordered ibuprofen 600 mg oral tablet 600 mg, 1, tablet, By Mouth, 4 times a day, PRN, # 40 tablet, Refills 3, Tot. Refills 3, Acute 09/10/22 12:57:00 EDT, for pain, 08/10/22 12:56:00 EST, Route to Pharmacy Electronically, [facility]-[id number], Partial fill upon patient requ... Start Date: 08/10/22 Stop Date: 09/10/22 Status: Ordered Linzess 145 mcg oral capsule 1 capsule, By Mouth, Daily in AM, # 30 capsule, 0 Refills, [facility] [id number], 168, cm, 11/20/21 8:41:00 EDT, Height, 85.8, kg, 04/07/21 14:21:00 EDT, Dry Weight Start Date: 01/08/22 Status: Ordered loratadine 10 mg oral tablet 10 mg, 1, tablet, By Mouth, Daily in AM, # 30 tablet, Refills 0, Tot. Refills 0, Maintenance, 07/30/22 9:30:00 EST, Route to Pharmacy Electronically, [facility]-[id number], Partial fill upon patient request if the prescription is for a sc... Start Date: 07/30/22 Status: Ordered LORazepam 1 mg oral tablet 1 tablet = 1 mg, By Mouth, Every 6 hours, PRN Agitation, # 120 tablet, 0 Refills, Maintenance, 07/30/22 9:30:00 EST, Tablet, [facility]-[id number], Partial fill upon patient request if the prescription is for a schedule II opioid drug., 1... Start Date: 07/30/22 Status: Ordered melatonin 10 mg oral tablet 1 tablet = 10 mg, By Mouth, Daily at bedtime, PRN as needed for insomnia, # 30 tablet, 0 Refills, Maintenance, 07/30/22 9:31:00 EST, Tablet, [facility] [place]-[id number], Partial fill upon patient request if the prescription is for a schedule II... Start Date: 07/30/22 Status: Ordered olanzapine 5 mg oral tablet 5 mg, 1, tablet, By Mouth, 2 times a day, # 60 tablet, Refills 0, Tot. Refills 0, Maintenance, 07/30/22 9:32:00 EST, Route to Pharmacy Electronically, [facility] [place]-[id number], Partial fillupon patient request if the prescription [...] 07/30/22 9:34:00 EST, Route to Pharmacy Electronically, [facility] [place]-[id number], Partial fill uponpatient request if the prescription is for a schedu... Start Date: 07/30/22 Status: Ordered psyllium 3.4 gm/5.2 gm oral powder for reconstitution = 1.7 Gm, By Mouth, 3 times a day, # 1,042 Gm, 0 Refills, Maintenance, 07/30/22 9:41:00 EST, REC Powder, [facility] [place]-[id number], Partial fill upon patient request if the prescription is for a schedule II opioid drug., 168, cm, 07/30/22 8:0... Start Date: 07/30/22 Status: Ordered QUEtiapine 100 mg oral tablet 300 mg, 3, tablet, By Mouth, 2 times a day, # 180 tablet, Refills 0, Tot. Refills 0, Maintenance, 07/30/22 9:34:00 EST, Route to Pharmacy Electronically, [facility][id number], Partial fill upon patient request if the prescription is for... Start Date: 07/30/22 Status: Ordered Problem List Condition Confirmation Course Effective Dates Status H ealth Status Informant Allergic rhinitis Confirmed Active Bipolar disorder Confirmed Active Chronic constipation Confirmed Active Developmental disability Confirmed Active Intermittent explosive disorder in adult Confirmed Active Chronic GERD Confirmed Active Injury of right shoulder Confirmed 08/15/20 Active Lives in care home Confirmed Active Obese [...] Care Team Personnel Name: Justa Reynoso Position: [facility] RN Member Role: Primary Care Nurse Name: Mayra Clay RN Position: S RN Member Role: Primary Care Nurse Name: Keturah Felipe NP Position: [facility] Associate Professional Member Role: PCP Address: Address: [address] [place] [id number] Name: Sonal Dumont RN Position: [facility] RN Supv Member Role: Primary Care Nurse Name: Beata Chavez RN Position: S RN Member Role: Primary Care Nurse Name: Priscilla Pelletier RN Position: S RN Member Role: Primary Care Nurse Care Team Related Persons Name: HIRAL EGAN Address: [place] [address] Name: DENISHA EGAN Address: [place] [address] Name: ELLA MUNGUIA Address: home [address] [place] [address] Name: HIEN ANGELES Address: home UNKNOWN
--- NOTE | 2022-09-13 22:54 | PC.NURSE ---
report given to monorail charger operator
--- NOTE | 2022-09-13 23:12 | ED_ITS ---
HPI - General Adult General Chief complaint: Dental/Oral Stated complaint: abcess in mouth? Time Seen by Provider: 09/13/22 23:07 Source: patient, RN notes reviewed, old records reviewed and other (snf staff) Mode of arrival: ambulatory Limitations: no limitations History of Present Illness HPI narrative: 32-year-old male past medical history significant for mood disorder, TBI, chronic static encephalopathy intellectual disability who presents for evaluation of right facial pain. Patient reports that he has had dental/facial pain to the right side since last night. Denies any fevers, chills. He has been unable to get in to his dentist He is able to swallow. Staff sores feels the patient is jaw has been swollen Related Data Home Medications Medication Instructions Recorded Confirmed melatonin 3 mg tablet 6 mg PO BEDTIME PRN Insomnia 10/14/21 06/26/22 calcium carbonate 500 mg calcium 500 mg PO Q4H PRN dyspepsia 02/07/22 06/26/22 (1,250 mg) chewable tablet divalproex 500 mg tablet,delayed 1,500 mg PO BEDTIME 02/07/22 06/26/22 release fluoxetine 40 mg capsule (Prozac) 40 mg PO DAILY 02/07/22 06/26/22 propranolol 20 mg tablet 80 mg PO QAM 02/07/22 06/26/22 quetiapine 300 mg tablet 300 mg PO BID 02/07/22 06/26/22 sennosides 8.6 mg-docusate sodium 1 tab-cap PO BEDTIME 02/07/22 06/26/22 50 mg tablet (Senna with Docusate Sodium) fluoxetine 10 mg capsule 30 mg PO QAM 06/26/22 06/26/22 loratadine 10 mg tablet (Claritin) 10 mg PO QAM 06/26/22 06/26/22 lorazepam 1 mg tablet (Ativan) 1 mg PO QID 06/26/22 06/26/22 olanzapine 15 mg tablet 15 mg PO BID 06/26/22 06/26/22 quetiapine 200 mg tablet 400 mg PO BEDTIME 06/26/22 06/26/22 zolpidem 10 mg tablet 10 mg PO BEDTIME 06/26/22 06/26/22 Previous Rx's Medication Instructions Recorded ibuprofen 600 mg tablet 600 mg PO Q6H PRN fever or pain 30 10/03/21 days #30 tabs linaclotide 145 mcg capsule 145 mcg PO QAM 30 days #30 caps 10/03/21 (Linzess) omeprazole 20 mg tablet,delayed 20 mg PO DAILY 30 days #30 tabs 10/03/21 release psyllium husk (with sugar) 3.4 1 tbsp PO QAM #861 grams 10/03/21 gram/12 gram oral powder benzonatate 100 mg capsule 100 mg PO BID PRN cough #20 caps 01/01/22 amoxicillin 500 mg tablet 500 mg PO TID #21 tabs 09/13/22 naproxen 500 mg tablet 500 mg PO BID PRN pain (scale 09/13/22 score 4-6) #10 tabs Allergies Allergy/AdvReac Type Severity Reaction Status Date / Time risperidone [From RISPERDAL] Allergy Unknown MUCLE Verified 09/13/22 21:22 TIGHTNESS Review of Systems Constitutional: Constitutional: Reports as per HPI, Denies chills and Denies fever(s) ENT: Denies halitosis, Reports dental pain, Reports facial pain, Denies sore throat and Denies throat swelling Cardiovascular: Cardiovascular: Denies chest pain and Denies dyspnea Respiratory: Respiratory: Denies cough and Denies dyspnea Allergic/Immunologic: Allergic/Immunologic: Denies throat swelling PMFSH Past Medical History Medical History Constipation Mental health disorder Social History Social History Household Members: Other Household Members Other:: lives in senior living with 3 other patients Housing: House Do you presently have visiting nurse or other home services: Yes ([facility]) Alcohol intake: former Patient Tobacco Use Status: Former Tobacco user Quit Date: 06/2020 Tobacco use type: Cigarette Cigarette Packs Per Day: 1 Cigarettes Per Day: 20.0 Years Smoked: 12 Second Hand Smoke Exposure: No Advance Directives: No Advance Directives Information Provided: No service: No Sexual orientation: Did not discuss. Physical Exam ED Vital Signs: Vital Signs - 24 hr 09/13/22 21:22 Temperature 98.3 F Pulse Rate 80 Respiratory Rate 18 Blood Pressure 110/77 Pulse Oximetry 95 Oxygen Delivery Method Room Air BMI result Body Mass Index 29.9 Const General: healthy appearing, comfortable, no acute distress, alert and awake Nutritional Appearance: well nourished [facility] Other: Multiple dental caries as well as surgically removed teeth. The patient has mild gingival edema with erythema surrounding tooth numbers 3 and 4. There is no significant abscess in the area. No retropharyngeal edema Mouth: Normal oral and palatal mucosa present and tongue normal Teeth and gingiva: caries and poor dentition Eyes Eyelids: Yes eyelids normal Conjunctivae: conjunctivae normal Sclerae: sclerae normal Corneas: corneas normal EOM: EOMs intact bilaterally Neck Neck: Yes full ROM Resp Effort & Inspection: normal respiratory effort, able to speak in complete sentences, no audible wheezes and not labored Auscultation: clear to auscultation bilaterally Cardio Rate: regular rate Rhythm: regular rhythm Extrem Other: Moving all extremities well without any obvious deformities Medical Decision Making Medical Decision Making MDM Narrative: 32-year-old male presents for evaluation of facial pain, likely as a dental infection. Will treat his atypical thick oxacillin and naproxen. I filled out the paperwork for his senior living for the new medications Differential Diagnosis Atypical facial pain Dental caries Dental abscess Dental infection Gingivitis Discharge Plan Discharge Clinical Impression: Atypical face pain Patient Disposition: Home, Self-Care Instructions: Gingivostomatitis (ED) Additional Instructions: Take amoxacillin 3 times daily for the next 7 days. Use naproxen twice daily for the next 5 days as needed Prescriptions: New amoxicillin 500 mg tablet 500 mg PO TID Qty: 21 0RF naproxen 500 mg tablet 500 mg PO BID PRN (Reason: pain (scale score 4-6)) Qty: 10 0RF No Action omeprazole 20 mg tablet,delayed release (DR/EC) 20 mg PO DAILY 30 Days Qty: 30 0RF Rx Instructions: Take every AM 1/2 hour prior to meal Linzess 145 mcg capsule 145 mcg PO QAM 30 Days Qty: 30 0RF psyllium husk (with sugar) 3.4 gram/12 gram powder 1 tbsp PO QAM Qty: 861 0RF Rx Instructions: in 8oz fluid every morning ibuprofen 600 mg tablet 600 mg PO Q6H PRN (Reason: fever or pain) 30 Days Qty: 30 0RF melatonin 3 mg Tablet 6 mg PO BEDTIME PRN (Reason: Insomnia) benzonatate 100 mg capsule 100 mg PO BID PRN (Reason: cough) Qty: 20 0RF loratadine [Claritin] 10 mg tablet 10 mg PO QAM Rx Instructions: Every AM fluoxetine 10 mg Capsule 30 mg PO QAM Rx Instructions: give it with 40 mg with total dose of 70 mg lorazepam [Ativan] 1 mg Tablet 1 mg PO QID quetiapine 200 mg tablet 400 mg PO BEDTIME zolpidem 10 mg Tablet 10 mg PO BEDTIME olanzapine 15 mg tablet 15 mg PO BID sennosides-docusate sodium [Senna with Docusate Sodium] 8.6-50 mg Tablet 1 tab-cap PO BEDTIME fluoxetine [Prozac] 40 mg capsule 40 mg PO DAILY quetiapine 300 mg tablet 300 mg PO BID divalproex 500 mg tablet,delayed release (DR/EC) 1,500 mg PO BEDTIME calcium carbonate 500 mg calcium (1,250 mg) tablet,chewable 500 mg PO Q4H PRN (Reason: dyspepsia) propranolol 20 mg tablet 80 mg PO QAM Protocol: Hold for SBP/HR < HOLD for SBP < : 90 HOLD for HR < : 60
[2022-09-13] MEDS: Penicillin V Potassium 250 MG TABLET 500 MG PO (23:58)
[2022-09-13] MEDS: NaPROXEN 500 MG TABLET PO (23:58)
--- NOTE | 2022-09-14 00:01 | PC.NURSE ---
pt has been sleeping, arrousable medicated and discharge. no difficultly swallowing. talking in full sentences.
== END 2022-09-14 00:03 | disposition home or self-care (01) ==
PROVIDERS: Emergency Provider Emergency Medicine
DX: R51.9 Headache, unspecified (principal); Z79.899 Other long term (current) drug therapy; Z87.891 Personal history of nicotine dependence
CPT/HCPCS: 99283; 99284

== ENCOUNTER 2022-09-15 15:24 | Emergency (ER) | payer OTHER, SELFPAY ==
--- NOTE | 2022-09-15 15:36 | ED_ITS ---
HPI - General Adult General Chief complaint: Psychiatric Symptoms <ASHWIN Aldana - Last Filed: 09/15/22 17:34> Stated complaint: Section 12 <ASHWIN Aldana - Last Filed: 09/15/22 17:34> Time Seen by Provider: 09/15/22 15:35 <ASHWIN Aldana - Last Filed: 09/15/22 17:34> Source: patient and EMS <ASHWIN Aldana Last Filed: 09/15/22 17:34> Mode of arrival: EMS <ASHWIN Aldana - Last Filed: 09/15/22 17:34> Limitations: no limitations <ASHWIN Aldana Last Filed: 09/15/22 17:34> History of Present Illness HPI narrative: Patient is a 32 year old assigned male at with a history of TBI and mood disorder presenting to the emergency department today on a section 12 for increased aggression. Patient's skilled nursing states that the patient struck out against multiple people at his skilled nursing. Patient states that he wants to hurt us all. Patient denies any dizziness, lightheadedness, abdominal pain, nausea, vomiting, fever, chills, blurry vision, double vision, loss of vision, chest pain, difficulty breathing, shortness of breath, back pain, night sweats, pain with urination, increased urinary frequency, increased urinary urgency, blood in his urine or stool, syncope or a near syncopal episode, recent trauma or falls, bowel incontinence, bladder incontinence, bowel retention, bladder retention, or any other complaints at this time. <ASHWIN Aldana - Last Filed: 09/15/22 17:34> Onset (ago): hour(s) <ASHWIN Aldana - Last Filed: 09/15/22 17:34> Relieving factors: none <ASHWIN Aldana Last Filed: 09/15/22 17:34> Exacerbating factors: none <ASHWIN Aldana Last Filed: 09/15/22 17:34> Associated symptoms: denies other symptoms <ASHWIN Aldana - Last Filed: 09/15/22 17:34> Treatments prior to arrival: none <SAHWIN Aldana Last Filed: 09/15/22 17:34> Related Data Home medications: Home Medications Medication Instructions Recorded Confirmed melatonin 3 mg tablet 6 mg PO BEDTIME PRN Insomnia 10/14/21 09/15/22 divalproex 500 mg tablet,delayed 1,500 mg PO BEDTIME 02/07/22 09/15/22 release fluoxetine 40 mg capsule (Prozac) 40 mg PO DAILY 02/07/22 09/15/22 propranolol 20 mg tablet 80 mg PO QAM 02/07/22 09/15/22 quetiapine 300 mg tablet 300 mg PO BID 02/07/22 09/15/22 sennosides 8.6 mg-docusate sodium 1 tab-cap PO BEDTIME 02/07/22 09/15/22 50 mg tablet (Senna with Docusate Sodium) loratadine 10 mg tablet (Claritin) 10 mg PO QAM 06/26/22 09/15/22 lorazepam 1 mg tablet (Ativan) 1 mg PO BID 06/26/22 09/15/22 olanzapine 15 mg tablet 15 mg PO BID 06/26/22 09/15/22 albuterol sulfate 90 mcg/actuation 90 mcg inhalation BID PRN Cough 09/15/22 09/15/22 aerosol inhaler (Ventolin HFA) desmopressin 0.2 mg tablet 0.2 mg PO BEDTIME 09/15/22 09/15/22 hydroxyzine pamoate 50 mg capsule 50 mg PO QID PRN Anxiety 09/15/22 09/15/22 linaclotide 145 mcg capsule 290 mcg PO QAM 09/15/22 09/15/22 (Linzess) polyethylene glycol 3350 17 gram 17 g PO DAILY PRN Constipation 09/15/22 09/15/22 oral powder packet (Miralax) sodium chloride 0.65 % nasal spray 2 spray intranasal QID PRN 09/15/22 09/15/22 aerosol (Deep Sea Nasal) Congestion Previous Rx's Medication Instructions Recorded ibuprofen 600 mg tablet 600 mg PO Q6H PRN fever or pain 30 10/03/21 days #30 tabs omeprazole 20 mg tablet,delayed 20 mg PO DAILY 30 days #30 tabs 10/03/21 release amoxicillin 500 mg tablet 500 mg PO TID #21 tabs 09/13/22 naproxen 500 mg tablet 500 mg PO BID PRN pain (scale 09/13/22 score 4-6) #10 tabs <ASHWIN Aldana - Last Filed: 09/15/22 17:34> Allergies/adverse reactions: Allergies Allergy/AdvReac Type Severity Reaction Status Date / Time risperidone [From RISPERDAL] Allergy Unknown MUCLE Verified 09/15/22 15:49 TIGHTNESS <ASHWIN Aldana Last Filed: 09/15/22 17:34> Review of Systems Constitutional: Constitutional: Reports no additional constitutional complaints, Denies chills, Denies fever(s) and Denies night sweats <ASHWIN Aldana - Last Filed: 09/15/22 17:34> Eyes: Eyes: Reports no additional eye complaints, Denies blurry vision, Denies change in vision, Denies diplopia, Denies eye discharge, Denies loss of vision and Denies eye pain <ASHWIN Aldana Last Filed: 09/15/22 17:34> ENT: Denies dizziness <ASHWIN Aldana Last Filed: 09/15/22 17:34> Cardiovascular: Cardiovascular: Reports no additional cardiovascular co mplaints, Denies chest pain, Denies lightheadedness, Denies Loss of Consciousness and Denies dyspnea <ASHWIN Aldana - Last Filed: 09/15/22 17:34> Respiratory: Respiratory: Reports no additional respiratory complaints and Denies dyspnea <ASHWIN Aldana - Last Filed: 09/15/22 17:34> Gastrointestinal: Gastrointestinal: Reports no additional gastrointestinal complaints, Denies abdominal pain, Denies melena, Denies hematochezia, Denies change in bowel habits and Denies change in stool character <ASHWIN Hooks - Last Filed: 09/15/22 17:34> Genitourinary: Genitourinary: Reports no additional male genitourinary complaints, Denies hematuria, Denies oliguria, Denies difficulty urinating, Denies dysuria, Denies urinary frequency, Denies urinary hesitancy, Denies urinary incontinence and Denies urinary urgency <ASHWIN Aldana Last Filed: 09/15/22 17:34> Musculoskeletal: Musculoskeletal: Reports no additional musculoskeletal complaints, Denies numbness and Denies tingling <ASHWIN Aldana Last Filed: 09/15/22 17:34> Neurologic: Denies dizziness, Denies loss of vision, Denies numbness and Denies tingling <ASHWIN Aldana - Last Filed: 09/15/22 17:34> Psychiatric: Psychiatric: Reports no additional psychiatric complaints <ASHWIN Aldana - Last Filed: 09/15/22 17:34> Comments: aggression <ASHWIN Aldana - Last Filed: 09/15/22 17:34> Endocrine: Endocrine: Reports no additional endocrine complaints <ASHWIN Aldana - Last Filed: 09/15/22 17:34> Hematologic/Lymphatic: Hematologic/Lymphatic: Reports no additional hematologic/lymphatic complaints <ASHWIN Aldana - Last Filed: 09/15/22 17:34> Allergic/Immunologic: Allergic/Immunologic: Reports no additional allergic/immunologic complaints <ASHWIN Aldana - Last Filed: 09/15/22 17:34> PMFSH Past Medical History Attestation statement: The following information was validated with the patient. <ASHWIN Aldana - Last Filed: 09/15/22 17:34> Source: old records reviewed, nursing notes reviewed and other (skilled nursing staff and notes) <ASHWIN Aldana - Last Filed: 09/15/22 17:34> Medical History: Medical History Constipation Mental health disorder <ASHWIN Aldana - Last Filed: 09/15/22 17:34> Social History Social History: Social History Household Members: Other Household Members Other:: lives in skilled nursing with 3 other patients Housing: House Do you presently have visiting nurse or other home services: Yes (S skilled nursing) Alcohol intake: never Patient Tobacco Use Status: Former Tobacco user Quit Date: 06/2020 Tobacco use type: Cigarette Cigarette Packs Per Day: 1 Cigarettes Per Day: 20.0 Years Smoked: 12 Smoked in Last 30 Days: No Second Hand Smoke Exposure: No Use of substances other than those prescribed or required for medical reasons: No Advance Directives: No Advance Directives Information Provided: Yes service: No Sexual orientation: Did not discuss. <ASHWIN Aldana - Last Filed: 09/15/22 17:34> Physical Exam ED Vital Signs: Vital Signs - 24 hr 09/15/22 15:37 09/15/22 20:10 09/15/22 19:40 Temperature 99.5 F 97.7 F Pulse Rate 74 60 Respiratory Rate 16 16 18 Blood Pressure 124/77 120/70 Pulse Oximetry 96 96 Oxygen Delivery Method Room Air 09/15/22 19:55 09/15/22 20:25 09/15/22 20:40 Temperature Pulse Rate Respiratory Rate 16 16 16 Blood Pressure Pulse Oximetry Oxygen Delivery Method 09/16/22 09:12 Temperature 97.6 F Pulse Rate 70 Respiratory Rate 20 Blood Pressure 131/99 H Pulse Oximetry 94 Oxygen Delivery Method Room Air BMI result Body Mass Index 30.4 <ASHWIN Aldana - Last Filed: 09/15/22 17:34> Vital Signs - 24 hr 09/15/22 15:37 09/15/22 20:10 09/15/22 19:40 Temperature 99.5 F 97.7 F Pulse Rate 74 60 Respiratory Rate 16 16 18 Blood Pressure 124/77 120/70 Pulse Oximetry 96 96 Oxygen Delivery Method Room Air 09/15/22 19:55 09/15/22 20:25 09/15/22 20:40 Temperature Pulse Rate Respiratory Rate 16 16 16 Blood Pressure Pulse Oximetry Oxygen Delivery Method 09/16/22 09:12 Temperature 97.6 F Pulse Rate 70 Respiratory Rate 20 Blood Pressure 131/99 H Pulse Oximetry 94 Oxygen Delivery Method Room Air BMI result Body Mass Index 30.4 <Asad Deshpande MD - Last Filed: 09/16/22 10:59> Const General: cooperative, no acute distress, alert and awake <ASHWIN Aldana - Last Filed: 09/15/22 17:34> Nutritional Appearance: well nourished <ASHWIN Aldana Last Filed: 09/15/22 17:34> Orientation/consciousness: patient oriented x3 <ASHWIN Aldana Last Filed: 09/15/22 17:34> Limitations: no limitations <ASHWIN Aldana Last Filed: 09/15/22 17:34> HENMT Head: Yes normal to inspection and Yes atraumatic <ASHWIN Aldana Last Filed: 09/15/22 17:34> Ears: hearing grossly normal bilaterally and external ears normal <Jody Fernandezselena DC - Last Filed: 09/15/22 17:34> General nose exam: Normal external nose present, no nasal discharge noted and no epistaxis <Jody Fernandezselena DC - Last Filed: 09/15/22 17:34> Face and sinus: Yes normal facial exam, No abrasion and No laceration <Jody Hallie DC - Last Filed: 09/15/22 17:34> Mouth: Normal oral and palatal mucosa present, no drooling and no muffled voice <Jody Hallie DC - Last Filed: 09/15/22 17:34> Eyes General: appearance normal, both eyes and all related structures <Jody Sterling DC - Last Filed: 09/15/22 17:34> Periorbital: periorbital findings normal <Jody Hallie DC - Last Filed: 09/15/22 17:34> Eyelids: Yes eyelids normal <Jody Sterling DC - Last Filed: 09/15/22 17:34> Conjunctivae: conjunctivae normal <Jodybeata Fernandezselena DC - Last Filed: 09/15/22 17:34> Pupils: Equal, round and reactive pupils present <Jody Hallie DC - Last Filed: 09/15/22 17:34> EOM: EOMs intact bilaterally <Jody Fernandezselena DC - Last Filed: 09/15/22 17:34> Neck Neck: Yes normal visual inspection, Yes full ROM and Yes no lymphadenopathy <Jody Sterling DC - Last Filed: 09/15/22 17:34> Chest Chest palpation & inspection: normal inspection of the chest <Jody Sterling DC - Last Filed: 09/15/22 17:34> Resp Effort & Inspection: normal respiratory effort and able to speak in complete sentences <Jody Sterling DC - Last Filed: 09/15/22 17:34> GI Inspection: Yes normal to inspection <Jody Sterling DC - Last Filed: 09/15/22 17:34> Neuro General: patient oriented x3 and moves all extremities <Jody Sterling DC - Last Filed: 09/15/22 17:34> Cranial nerves: Yes Equal, round and reactive pupils present <ASHWIN Aldana - Last Filed: 09/15/22 17:34> Cognition (Neuro): normal cognition <ASHWIN Aldana - Last Filed: 09/15/22 17:34> Motor exam (neuro): 5/5 motor strength present throughout <ASHWIN Aldana - Last Filed: 09/15/22 17:34> Sensory Exam: Normal double simultaneous stimulation for sensation <ASHWIN Aldana - Last Filed: 09/15/22 17:34> Coordination: [id number] test normal <ASHWIN Aldana - Last Filed: 09/15/22 17:34> Extrem General: Yes normal to inspection, Yes full ROM and Yes capillary refill normal <ASHWIN Aldana - Last Filed: 09/15/22 17:34> Psych Appearance: grossly normal <ASHWIN Aldana - Last Filed: 09/15/22 17:34> Mental Status: mental status grossly normal <ASHWIN Aldana - Last Filed: 09/15/22 17:34> Speech and movement: Normal speech and movement present <ASHWIN Aldana - Last Filed: 09/15/22 17:34> Affect: Hostile affect present <ASHWIN Aldana - Last Filed: 09/15/22 17:34> Attitude: Belligerent attititude/behavior present <ASHWIN Aldana - Last Filed: 09/15/22 17:34> Thought content: Homicidality present <ASHWIN Aldana - Last Filed: 09/15/22 17:34> Insight: Limited insight present (Psych) <ASHWIN Aldana - Last Filed: 09/15/22 17:34> Medications Administered Generic Name Dose Route Start Last Admin Trade Name Paddy PRN Reason Stop Dose Admin Amoxicillin 500 mg 09/15/22 21:00 09/16/22 09:34 Amoxicillin 500 Mg Capsule PO 500 mg TID ZANA Administration Desmopressin Acetate 0.2 mg 09/15/22 21:00 09/15/22 20:35 Desmopressin Acetate 0.2 Mg Tablet PO 0.2 mg BEDTIME ZANA Administration Divalproex Sodium 1,500 mg 09/15/22 21:00 09/15/22 20:07 Divalproex Sodium 500 Mg Tablet. PO 1,500 mg BEDTIME ZANA Administration Fluoxetine HCl 40 mg 09/16/22 09:00 09/16/22 09:33 Fluoxetine Hcl 20 Mg Capsule PO 40 mg DAILY ZANA Administration Ibuprofen 600 mg 09/15/22 17:02 09/16/22 09:33 Ibuprofen 600 Mg Tablet PO 600 mg Q6H PRN Administration fever or pain Loratadine 10 mg 09/16/22 09:00 09/16/22 09:33 Loratadine 10 Mg Tablet PO 10 mg DAILY ZANA Administration Lorazepam 1 mg 09/15/22 21:00 09/16/22 09:34 Lorazepam 1 Mg Tablet PO 1 mg BID ZANA Administration Olanzapine 15 mg 09/15/22 21:00 09/16/22 09:33 Olanzapine 7.5 Mg Tablet PO 15 mg BID ZANA Administration Omeprazole 20 mg 09/16/22 06:30 09/16/22 05:54 Omeprazole 20 Mg Capsule. PO 20 mg DAILY@0630 ZANA Administration Propranolol HCl 80 mg 09/16/22 09:00 09/16/22 10:04 Propranolol Hcl 40 Mg Tablet PO 80 mg DAILY ZANA Administration Protocol Quetiapine Fumarate 300 mg 09/15/22 21:00 09/16/22 09:33 Quetiapine Fumarate 300 Mg Tablet PO 300 mg BID ZANA Administration Senna/Docusate Sodium 1 tab 09/15/22 21:00 09/15/22 20:07 Sennosides/Docusate Sodium Tablet PO 1 tab BEDTIME ZANA Administration Discontinued Medications Generic Name Dose Route Start Last Admin Trade Name Freq PRN Reason Stop Dose Admin Diphenhydramine HCl 25 mg 09/15/22 19:31 09/15/22 19:40 Diphenhydramine Hcl 50 Mg/Ml Vial IM 09/15/22 19:32 25 mg ONCE ONE Administration Haloperidol Lactate 5 mg 09/15/22 19:31 09/15/22 19:40 Haloperidol Lactate 5 Mg/Ml Vial IM 09/15/22 19:32 5 mg STAT STA Administration Lorazepam 2 mg 09/15/22 15:35 09/15/22 15:54 Lorazepam 1 Mg Tablet PO 09/15/22 15:36 2 mg ONCE ONE Administration Lorazepam 2 mg 09/15/22 19:31 09/15/22 19:40 Lorazepam 2 Mg/Ml Vial IM 09/15/22 19:32 2 mg STAT STA Administration Olanzapine 5 mg 09/15/22 15:35 09/15/22 15:54 Olanzapine 5 Mg Tablet PO 09/15/22 15:36 5 mg ONCE ONE Administration <ASHWIN Aldana - Last Filed: 09/15/22 17:34> Medications Administered Generic Name Dose Route Start Last Admin Trade Name Paddy PRN Reason Stop Dose Admin Amoxicillin 500 mg 09/15/22 21:00 09/16/22 09:34 Amoxicillin 500 Mg Capsule PO 500 mg TID ZANA Administration Desmopressin Acetate 0.2 mg 09/15/22 21:00 09/15/22 20:35 Desmopressin Acetate 0.2 Mg Tablet PO 0.2 mg BEDTIME ZANA Administration Divalproex Sodium 1,500 mg 09/15/22 21:00 09/15/22 20:07 Divalproex Sodium 500 Mg Tablet. PO 1,500 mg BEDTIME ZANA Administration Fluoxetine HCl 40 mg 09/16/22 09:00 09/16/22 09:33 Fluoxetine Hcl 20 Mg Capsule PO 40 mg DAILY ZANA Administration Ibuprofen 600 mg 09/15/22 17:02 09/16/22 09:33 Ibuprofen 600 Mg Tablet PO 600 mg Q6H PRN Administration fever or pain Loratadine 10 mg 09/16/22 09:00 09/16/22 09:33 Loratadine 10 Mg Tablet PO 10 mg DAILY ZANA Administration Lorazepam 1 mg 09/15/22 21:00 09/16/22 09:34 Lorazepam 1 Mg Tablet PO 1 mg BID ZANA Administration Olanzapine 15 mg 09/15/22 21:00 09/16/22 09:33 Olanzapine 7.5 Mg Tablet PO 15 mg BID ZANA Administration Omeprazole 20 mg 09/16/22 06:30 09/16/22 05:54 Omeprazole 20 Mg Capsule. PO 20 mg DAILY@0630 ZANA Administration Propranolol HCl 80 mg 09/16/22 09:00 09/16/22 10:04 Propranolol Hcl 40 Mg Tablet PO 80 mg DAILY ZANA Administration Protocol Quetiapine Fumarate 300 mg 09/15/22 21:00 09/16/22 09:33 Quetiapine Fumarate 300 Mg Tablet PO 300 mg BID ZANA Administration Senna/Docusate Sodium 1 tab 09/15/22 21:00 09/15/22 20:07 Sennosides/Docusate Sodium Tablet PO 1 tab BEDTIME ZANA Administration Discontinued Medications Generic Name Dose Route Start Last Admin Trade Name Paddy PRN Reason Stop Dose Admin Diphenhydramine HCl 25 mg 09/15/22 19:31 09/15/22 19:40 Diphenhydramine Hcl 50 Mg/Ml Vial IM 09/15/22 19:32 25 mg ONCE ONE Administration Haloperidol Lactate 5 mg 09/15/22 19:31 09/15/22 19:40 Haloperidol Lactate 5 Mg/Ml Vial IM 09/15/22 19:32 5 mg STAT STA Administration Lorazepam 2 mg 09/15/22 15:35 09/15/22 15:54 Lorazepam 1 Mg Tablet PO 09/15/22 15:36 2 mg ONCE ONE Administration Lorazepam 2 mg 09/15/22 19:31 09/15/22 19:40 Lorazepam 2 Mg/Ml Vial IM 09/15/22 19:32 2 mg STAT STA Administration Olanzapine 5 mg 09/15/22 15:35 09/15/22 15:54 Olanzapine 5 Mg Tablet PO 09/15/22 15:36 5 mg ONCE ONE Administration <Asad Deshpande MD - Last Filed: 09/16/22 10:59> Medical Decision Making Medical Decision Making MDM Narrative: Patient is a 32 year old assigned male at with a history of TBI and mood disorder presenting to the emergency department today after an aggressive outburst. Patient's physical exam showed an agitated male. Patient's blood work was unremarkable. Patient's urine showed no acute process. Patient is awaiting CARE team evaluation. I explained my physical exam findings as well as all test results to the patient. I answered all questions asked by the patient. Patient disposition pending CARE team evaluation. <ASHWIN Aldana - Last Filed: 09/15/22 17:34> Patient is a 32 year old assigned male at with a history of TBI and mood disorder presenting to the emergency department today after an aggressive outburst. Patient's physical exam showed an agitated male. Patient's blood work was unremarkable. Patient's urine showed no acute process. Patient is awaiting CARE team evaluation. I explained my physical exam findings as well as all test results to the patient. I answered all questions asked by the patient. Patient disposition pending CARE team evaluation. 09/16/2022. 10:58. Case discussed with PH in who evaluated the patient. He is at his current baseline. He lives in a skilled nursing and has extensive outpatient resources. No evidence of increased risk to self or others and he is stable for discharge home. Will medicate with lorazepam prior to discharge. <Asad Deshpande MD - Last Filed: 09/16/22 10:59> Differential Diagnosis Differential Diagnoses: The differential diagnosis associated with the presentation includes <ASHWIN Aldana - Last Filed: 09/15/22 17:34> aggression, mood disorder <ASHWIN Aldana - Last Filed: 09/15/22 17:34> Lab Data MDM Lab Attestation statement: I reviewed the patient's lab results. <ASHWIN Aldana - Last Filed: 09/15/22 17:34> Result Diagrams: 09/15/22 17:06 09/15/22 17:06 <ASHWIN Adlana - Last Filed: 09/15/22 17:34> Labs: Lab Results 09/15/22 09/15/22 09/15/22 Range/Units 15:59 15:59 17:06 WBC (4.8-10.8) X10*3/uL RBC (4.60-5.80) X10*6/uL Hgb (14.0-18.0) g/dl Hct (42.0-52.0) % MCV (80.0-98.0) fL MCH (27.0-33.0) pg MCHC (31.0-36.0) g/dl RDW (11.0-16.0) % Plt Count (160-400) X10*3/uL MPV (9.4-12.4) fL Immature Gran % (Auto) (0.0-0.4) % Neut % (Auto) (45-73) % Lymph % (Auto) (20-40) % [place] % (Auto) (2-11) % Eos % (Auto) (0-4) % Baso % (Auto) (0-2) % Lymph # (Auto) (1.2-4.9) X10*3/uL [place] # (Auto) (0.1-1.2) X10*3/uL Eos # (Auto) (0.0-0.4) X10*3/uL Baso # (Auto) (0.0-0.2) X10*3/uL Abs Immat Gran (auto) (0.00-0.03) X10*3/uL Absolute Neuts (auto) (2.0-8.3) x10*3/uL Absolute Nucleated RBC (0.0-0.012) X10*3/uL Nucleated RBC % (auto) (0.0-0.2) /100WBC Sodium 139 (135-145) mmol/L Potassium 4.8 (3.3-5.1) mmol/L Chloride 105 (96-108) mmol/L Carbon Dioxide 26 (22-29) mmol/L Anion Gap 13 (12-20) BUN 14 (9-16) mg/dL Creatinine 0.96 (0.5-1.4) mg/dL Estim Creat Clear Calc 121.9 Estimated GFR > 60 Random Glucose 102 (60-115) mg/dL Calcium 8.7 D (8.4-10.2) mg/dL Total Bilirubin 0.6 (0.0-1.0) mg/dL AST 24 (5-37) U/L ALT 14 (0-40) U/L Alkaline Phosphatase 99 (39-117) U/L Total Protein 6.9 (6.5-8.0) g/dL Albumin 3.9 (3.5-5.0) g/dL Urine Color Dark Yellow Urine Appearance Clear Urine pH 6.5 (5.0-9.0) Ur Specific [place] >= 1.030 H (1.005-1.025) Urine Protein 30 (1+) H (Neg-Trace) mg/dL Urine Glucose (UA) Negative (Negative) mg/dL Urine Ketones Trace (Negative) mg/dL Urine Blood Negative (Negative) Urine Nitrite Negative (Negative) Ur Leukocyte Esterase Trace H (Negative) Urine RBC 0-2 (0-2) /HPF Urine WBC 0-5 (0-5) /HPF Ur Squamous Epith Cells 0-2 (0-2) /HPF Urine Bacteria None Seen (None Seen) Hyaline Casts 0-2 (0-2) /LPF Salicylates < 5.0 L (15-30) mg/dL Urine Opiates Screen Not Detected (Not Detect) Urine Fentanyl Screen Not Detected (Not Detect) Acetaminophen < 17 (<30) mcg/mL Ur Barbiturates Screen Not Detected (Not Detect) Valproic Acid (50.0-100.0) mcg/mL Ur Phencyclidine Scrn Not Detected (Not Detect) Ur Amphetamines Screen Not Detected (Not Detect) U Benzodiazepines Scrn Not Detected (Not Detect) Urine Cocaine Screen Not Detected (Not Detect) U Marijuana (THC) Screen Not Detected (Not Detect) Ethyl Alcohol < 10 mg/dL COVID-19 (GARY) (Negative) COVID-19 Clin Com 09/15/22 09/15/22 09/16/22 Range/Units 17:06 18:45 09:24 WBC 6.2 (4.8-10.8) X10*3/uL RBC 4.05 L (4.60-5.80) X10*6/uL Hgb 13.0 L (14.0-18.0) g/dl Hct 38.1 L (42.0-52.0) % MCV 94.1 (80.0-98.0) fL MCH 32.1 (27.0-33.0) pg MCHC 34.1 (31.0-36.0) g/dl RDW 11.3 (11.0-16.0) % Plt Count 186 (160-400) X10*3/uL MPV 8.8 L (9.4-12.4) fL Immature Gran % (Auto) 2.9 H (0.0-0.4) % Neut % (Auto) 54.1 (45-73) % Lymph % (Auto) 28.8 (20-40) % [place] % (Auto) 11.7 H (2-11) % Eos % (Auto) 1.9 (0-4) % Baso % (Auto) 0.6 (0-2) % Lymph # (Auto) 1.8 (1.2-4.9) X10*3/uL [place] # (Auto) 0.7 (0.1-1.2) X10*3/uL Eos # (Auto) 0.1 (0.0-0.4) X10*3/uL Baso # (Auto) 0.0 (0.0-0.2) X10*3/uL Abs Immat Gran (auto) 0.18 H (0.00-0.03) X10*3/uL Absolute Neuts (auto) 3.3 (2.0-8.3) x10*3/uL Absolute Nucleated RBC 0.000 (0.0-0.012) X10*3/uL Nucleated RBC % (auto) 0.0 (0.0-0.2) /100WBC Sodium (135-145) mmol/L Potassium (3.3-5.1) mmol/L Chloride (96-108) mmol/L Carbon Dioxide (22-29) mmol/L Anion Gap (12-20) BUN (9-16) mg/dL Creatinine (0.5-1.4) mg/dL Estim Creat Clear Calc Estimated GFR Random Glucose (60-115) mg/dL Calcium (8.4-10.2) mg/dL Total Bilirubin (0.0-1.0) mg/dL AST (5-37) U/L ALT (0-40) U/L Alkaline Phosphatase (39-117) U/L Total Protein (6.5-8.0) g/dL Albumin (3.5-5.0) g/dL Urine Color Urine Appearance Urine pH (5.0-9.0) Ur Specific [place] (1.005-1.025) Urine Protein (Neg-Trace) mg/dL Urine Glucose (UA) (Negative) mg/dL Urine Ketones (Negative) mg/dL Urine Blood (Negative) Urine Nitrite (Negative) Ur Leukocyte Esterase (Negative) Urine RBC (0-2) /HPF Urine WBC (0-5) /HPF Ur Squamous Epith Cells (0-2) /HPF Urine Bacteria (None Seen) Hyaline Casts (0-2) /LPF Salicylates (15-30) mg/dL Urine Opiates Screen (Not Detect) Urine Fentanyl Screen (Not Detect) Acetaminophen (<30) mcg/mL Ur Barbiturates Screen (Not Detect) Valproic Acid 72.5 (50.0-100.0) mcg/mL Ur Phencyclidine Scrn (Not Detect) Ur Amphetamines Screen (Not Detect) U Benzodiazepines Scrn (Not Detect) Urine Cocaine Screen (Not Detect) U Marijuana (THC) Screen (Not Detect) Ethyl Alcohol mg/dL COVID-19 (GARY) Negative (Negative) COVID-19 Clin Com See Note <ASHWIN Aldana Last Filed: 09/15/22 17:34> Lab Results 09/15/22 09/15/22 09/15/22 Range/Units 15:59 15:59 17:06 WBC (4.8-10.8) X10*3/uL RBC (4.60-5.80) X10*6/uL Hgb (14.0-18.0) g/dl Hct (42.0-52.0) % MCV (80.0-98.0) fL MCH (27.0-33.0) pg MCHC (31.0-36.0) g/dl RDW (11.0-16.0) % Plt Count (160-400) X10*3/uL MPV (9.4-12.4) fL Immature Gran % (Auto) (0.0-0.4) % Neut % (Auto) (45-73) % Lymph % (Auto) (20-40) % [place] % (Auto) (2-11) % Eos % (Auto) (0-4) % Baso % (Auto) (0-2) % Lymph # (Auto) (1.2-4.9) X10*3/uL [place] # (Auto) (0.1-1.2) X10*3/uL Eos # (Auto) (0.0-0.4) X10*3/uL Baso # (Auto) (0.0-0.2) X10*3/uL Abs Immat Gran (auto) (0.00-0.03) X10*3/uL Absolute Neuts (auto) (2.0-8.3) x10*3/uL Absolute Nucleated RBC (0.0-0.012) X10*3/uL Nucleated RBC % (auto) (0.0-0.2) /100WBC Sodium 139 (135-145) mmol/L Potassium 4.8 (3.3-5.1) mmol/L Chloride 105 (96-108) mmol/L Carbon Dioxide 26 (22-29) mmol/L Anion Gap 13 (12-20) BUN 14 (9-16) mg/dL Creatinine 0.96 (0.5-1.4) mg/dL Estim Creat Clear Calc 121.9 Estimated GFR > 60 Random Glucose 102 (60-115) mg/dL Calcium 8.7 D (8.4-10.2) mg/dL Total Bilirubin 0.6 (0.0-1.0) mg/dL AST 24 (5-37) U/L ALT 14 (0-40) U/L Alkaline Phosphatase 99 (39-117) U/L Total Protein 6.9 (6.5-8.0) g/dL Albumin 3.9 (3.5-5.0) g/dL Urine Color Dark Yellow Urine Appearance Clear Urine pH 6.5 (5.0-9.0) Ur Specific [place] >= 1.030 H (1.005-1.025) Urine Protein 30 (1+) H (Neg-Trace) mg/dL Urine Glucose (UA) Negative (Negative) mg/dL Urine Ketones Trace (Negative) mg/dL Urine Blood Negative (Negative) Urine Nitrite Negative (Negative) Ur Leukocyte Esterase Trace H (Negative) Urine RBC 0-2 (0-2) /HPF Urine WBC 0-5 (0-5) /HPF Ur Squamous Epith Cells 0-2 (0-2) /HPF Urine Bacteria None Seen (None Seen) Hyaline Casts 0-2 (0-2) /LPF Salicylates < 5.0 L (15-30) mg/dL Urine Opiates Screen Not Detected (Not Detect) Urine Fentanyl Screen Not Detected (Not Detect) Acetaminophen < 17 (<30) mcg/mL Ur Barbiturates Screen Not Detected (Not Detect) Valproic Acid (50.0-100.0) mcg/mL Ur Phencyclidine Scrn Not Detected (Not Detect) Ur Amphetamines Screen Not Detected (Not Detect) U Benzodiazepines Scrn Not Detected (Not Detect) Urine Cocaine Screen Not Detected (Not Detect) U Marijuana (THC) Screen Not Detected (Not Detect) Ethyl Alcohol < 10 mg/dL COVID-19 (GARY) (Negative) COVID-19 Clin Com 09/15/22 09/15/22 09/16/22 Range/Units 17:06 18:45 09:24 WBC 6.2 (4.8-10.8) X10*3/uL RBC 4.05 L (4.60-5.80) X10*6/uL Hgb 13.0 L (14.0-18.0) g/dl Hct 38.1 L (42.0-52.0) % MCV 94.1 (80.0-98.0) fL MCH 32.1 (27.0-33.0) pg MCHC 34.1 (31.0-36.0) g/dl RDW 11.3 (11.0-16.0) % Plt Count 186 (160-400) X10*3/uL MPV 8.8 L (9.4-12.4) fL Immature Gran % (Auto) 2.9 H (0.0-0.4) % Neut % (Auto) 54.1 (45-73) % Lymph % (Auto) 28.8 (20-40) % [place] % (Auto) 11.7 H (2-11) % Eos % (Auto) 1.9 (0-4) % Baso % (Auto) 0.6 (0-2) % Lymph # (Auto) 1.8 (1.2-4.9) X10*3/uL [place] # (Auto) 0.7 (0.1-1.2) X10*3/uL Eos # (Auto) 0.1 (0.0-0.4) X10*3/uL Baso # (Auto) 0.0 (0.0-0.2) X10*3/uL Abs Immat Gran (auto) 0.18 H (0.00-0.03) X10*3/uL Absolute Neuts (auto) 3.3 (2.0-8.3) x10*3/uL Absolute Nucleated RBC 0.000 (0.0-0.012) X10*3/uL Nucleated RBC % (auto) 0.0 (0.0-0.2) /100WBC Sodium (135-145) mmol/L Potassium (3.3-5.1) mmol/L Chloride (96-108) mmol/L Carbon Dioxide (22-29) mmol/L Anion Gap (12-20) BUN (9-16) mg/dL Creatinine (0.5-1.4) mg/dL Estim Creat Clear Calc Estimated GFR Random Glucose (60-115) mg/dL Calcium (8.4-10.2) mg/dL Total Bilirubin (0.0-1.0) mg/dL AST (5-37) U/L ALT (0-40) U/L Alkaline Phosphatase (39-117) U/L Total Protein (6.5-8.0) g/dL Albumin (3.5-5.0) g/dL Urine Color Urine Appearance Urine pH (5.0-9.0) Ur Specific [place] (1.005-1.025) Urine Protein (Neg-Trace) mg/dL Urine Glucose (UA) (Negative) mg/dL Urine Ketones (Negative) mg/dL Urine Blood (Negative) Urine Nitrite (Negative) Ur Leukocyte Esterase (Negative) Urine RBC (0-2) /HPF Urine WBC (0-5) /HPF Ur Squamous Epith Cells (0-2) /HPF Urine Bacteria (None Seen) Hyaline Casts (0-2) /LPF Salicylates (15-30) mg/dL Urine Opiates Screen (Not Detect) Urine Fentanyl Screen (Not Detect) Acetaminophen (<30) mcg/mL Ur Barbiturates Screen (Not Detect) Valproic Acid 72.5 (50.0-100.0) mcg/mL Ur Phencyclidine Scrn (Not Detect) Ur Amphetamines Screen (Not Detect) U Benzodiazepines Scrn (Not Detect) Urine Cocaine Screen (Not Detect) U Marijuana (THC) Screen (Not Detect) Ethyl Alcohol mg/dL COVID-19 (GARY) Negative (Negative) COVID-19 Clin Com See Note <Asad Deshpande MD - Last Filed: 09/16/22 10:59> Independent Historian Clinical information obtained from an independent historian. History obtained from or confirmed by: EMS and Other (skilled nursing staff) <ASHWIN Aldana - Last Filed: 09/15/22 17:34> Discharge Plan Discharge Clinical Impression: Intermittent explosive disorder in adult <ASHWIN Aldana - Last Filed: 09/15/22 17:34> Patient Disposition: Still a Patient <ASHWIN Aldana - Last Filed: 09/15/22 17:34> Prescriptions: No Action omeprazole 20 mg tablet,delayed release (DR/EC) 20 mg PO DAILY 30 Days Qty: 30 0RF Rx Instructions: Take every AM 1/2 hour prior to meal ibuprofen 600 mg tablet 600 mg PO Q6H PRN (Reason: fever or pain) 30 Days Qty: 30 0RF melatonin 3 mg Tablet 6 mg PO BEDTIME PRN (Reason: Insomnia) loratadine [Claritin] 10 mg tablet 10 mg PO QAM Rx Instructions: Every AM lorazepam [Ativan] 1 mg Tablet 1 mg PO BID olanzapine 15 mg tablet 15 mg PO BID sennosides-docusate sodium [Senna with Docusate Sodium] 8.6-50 mg Tablet 1 tab-cap PO BEDTIME fluoxetine [Prozac] 40 mg capsule 40 mg PO DAILY quetiapine 300 mg tablet 300 mg PO BID divalproex 500 mg tablet,delayed release (DR/EC) 1,500 mg PO BEDTIME propranolol 20 mg tablet 80 mg PO QAM Protocol: Hold for SBP/HR < HOLD for SBP < : 90 HOLD for HR < : 60 amoxicillin 500 mg tablet 500 mg PO TID Qty: 21 0RF naproxen 500 mg tablet 500 mg PO BID PRN (Reason: pain (scale score 4-6)) Qty: 10 0RF polyethylene glycol 3350 [Miralax] 17 gram Powder In Packet 17 g PO DAILY PRN (Reason: Constipation) desmopressin 0.2 mg Tablet 0.2 mg PO BEDTIME hydroxyzine pamoate 50 mg capsule 50 mg PO QID PRN (Reason: Anxiety) albuterol sulfate [Ventolin HFA] 90 mcg/actuation HFA aerosol inhaler 90 mcg inhalation BID PRN (Reason: Cough) Deep Sea Nasal 0.65 % aerosol,spray 2 spray intranasal QID PRN (Reason: Congestion) Linzess 145 mcg capsule 290 mcg PO QAM <ASHWIN Aldana - Last Filed: 09/15/22 17:34> Interventions: [place]-Suicide Risk Severity Scale Last Done: 09/16/22 02:26 <ASHWIN Aldana - Last Filed: 09/15/22 17:34>
[2022-09-15 15:37] VITALS: BP 124/77; BP 132/78; PULSE 74; PULSE 76; RESP 16; TEMP 37.5; O2SAT 96; BMI 30.4
[2022-09-15] MEDS: OLANZapine 5 MG TABLET PO (15:54)
[2022-09-15] MEDS: LORazepam 1 MG TABLET 2 MG PO (15:54)
--- NOTE | 2022-09-15 16:09 | PC.NURSE ---
pt BIBA with police escort on a section 12. Pt apparently had a disagreement with his alf staff and became assaultive toward staff.., [place] Police were called and the section 12 states that pt disarmed police staff of his service weapon . pt currently reports passive SI, there is only one place I want to be, that's [facility], so I can be with my sister . pt denies plan at this time. Pt is reporting HI toward everyone . pt reports hating his alf staff and not wanting to go back. pt having moments of increased irritability, he did punch the nurses station glass several times lightly with his R hand. Pt willingly accepted PO medication that was administered per AUG. pt reports command AH. at this time, pt thought process is coherent, he is perseverative r/t his alf and wanting to go to [facility]. currently calm and cooperative, accepting redirection.
[2022-09-15 16:17] LABS: Appearance Urine Clear; Color Urine Dark Yellow; Glucose Urine UA Negative (Negative); Leukocyte Esterase Urine Trace (Negative); Nitrite Urine Negative (Negative); PH 6.5 (5.0-9.0); Specific Gravity - Urine >= 1.030 (1.005-1.025); UMIC TRIGGER UA YES; Urine Blood Negative (Negative); Urine Ketones Trace mg/dL (Negative); Urine Protein 30 (1+) mg/dL (Neg-Trace)
[2022-09-15 16:19] LABS: Bacteria Urine None Seen (None Seen); Hyaline Casts Urine 0-2 /LPF (0-2); RBC Urine 0-2 /HPF (0-2); Squamous Epithelial Cell Urine 0-2 /HPF (0-2); WBC Urine 0-5 /HPF (0-5)
[2022-09-15 16:22] LABS: Amphetamine Screen Urine Not Detected (Not Detect); Barbiturates, Urine Not Detected (Not Detect); Benzodiazepines Screen Urine Not Detected (Not Detect); Cannabinoid Screen Urine Not Detected (Not Detect); Cocaine Screen Urine Not Detected (Not Detect); Fentanyl, urine Not Detected (Not Detect); Opiate Screen Urine Not Detected (Not Detect); Phencyclidine Screen Urine Not Detected (Not Detect)
[2022-09-15 17:10] LABS: MANUAL DIFF FLAG NO
[2022-09-15 17:15] LABS: Basophils Percent Auto 0.6 % (0-2); Eosinophils Absolute Auto 0.1 X10*3/uL (0.0-0.4); Eosinophils Percent Auto 1.9 % (0-4); Hematocrit 38.1 % (42.0-52.0); Imm Gran Abs Auto 0.18 X10*3/uL (0.00-0.03); Imm Gran Pct Auto 2.9 % (0.0-0.4); Lymphocytes Absolute Auto 1.8 X10*3/uL (1.2-4.9); Lymphocytes Percent Auto 28.8 % (20-40); Mean Corpuscular HGB Conc 34.1 g/dl (31.0-36.0); Mean Corpuscular Hemoglobin 32.1 pg (27.0-33.0); Mean Corpuscular Volume 94.1 fL (80.0-98.0); Mean Platelet Volume 8.8 fL (9.4-12.4); Monocytes Absolute Auto 0.7 X10*3/uL (0.1-1.2); Monocytes Percent Auto 11.7 % (2-11); Neutrophils Absolute Auto 3.3 x10*3/uL (2.0-8.3); Neutrophils Percent Auto 54.1 % (45-73); Platelet Count 186 X10*3/uL (160-400); Red Blood Count 4.05 X10*6/uL (4.60-5.80); Red Cell Distribution Width 11.3 % (11.0-16.0); White Blood Count 6.2 X10*3/uL (4.8-10.8)
[2022-09-15] MEDS: Amoxicillin 500 MG CAPSULE PO ×2 (17:24→20:07)
[2022-09-15] MEDS: Ibuprofen 600 MG TABLET PO (17:25)
[2022-09-15 17:50] LABS: Acetaminophen LAB < 17 mcg/mL (<30); Alanine Aminotransferase 14 U/L (0-40); Albumin Level 3.9 g/dL (3.5-5.0); Alkaline Phosphatase 99 U/L (39-117); Anion Gap 13 (12-20); Aspartate Amino Transferase 24 U/L (5-37); Bilirubin Total 0.6 mg/dL (0.0-1.0); Blood Urea Nitrogen 14 mg/dL (9-16); Calcium 8.7 mg/dL (8.4-10.2); Carbon Dioxide 26 mmol/L (22-29); Chloride 105 mmol/L (96-108); Creatinine Clr Calc Pharmacy 121.9; Estimated Glomerular Filt Rate > 60; Ethanol < 10 mg/dL; Glucose Random 102 mg/dL (60-115); Potassium 4.8 mmol/L (3.3-5.1); Salicylate < 5.0 mg/dL (15-30); Sodium 139 mmol/L (135-145); Total Protein 6.9 g/dL (6.5-8.0)
[2022-09-15 19:07] LABS: COVID-19 Test Negative (Negative); IDNOW Serial# BCCEAD1C
[2022-09-15 19:40] VITALS: RESP 18
[2022-09-15] MEDS: diphenhydrAMINE HCL 50 MG/ML VIAL 25 MG IM (19:40)
[2022-09-15] MEDS: LORazepam 2 MG/ML VIAL IM (19:40)
[2022-09-15] MEDS: Haloperidol Lactate 5 MG/ML VIAL IM (19:40)
--- NOTE | 2022-09-15 19:45 | MHC.CARE ---
CARE Team attempted to contact collaterals with no response. Awaiting call back. At this time pt has been chemically restrained.
[2022-09-15 19:55] VITALS: RESP 16
[2022-09-15] MEDS: QUEtiapine Fumarate 300 MG TABLET PO (20:07)
[2022-09-15] MEDS: Divalproex Sodium 500 MG TABLET.DR 1500 MG PO (20:07)
[2022-09-15] MEDS: Sennosides/Docusate Sodium TABLET 1 TAB PO (20:07)
[2022-09-15] MEDS: OLANZapine 7.5 MG TABLET 15 MG PO (20:07)
[2022-09-15] MEDS: LORazepam 1 MG TABLET PO (20:09)
[2022-09-15 20:10] VITALS: BP 120/70; PULSE 60; RESP 16; TEMP 36.5; O2SAT 96
[2022-09-15 20:25] VITALS: RESP 16
[2022-09-15] MEDS: Desmopressin Acetate 0.2 MG TABLET PO (20:35)
--- NOTE | 2022-09-15 20:37 | PC.NURSE ---
Patient was found restless, increased agitation, exhibiting self abusive behavior by head banging against the wall secondary to increased CAH, provider notified/ordered Ativan 2 mg IM, haldol 5 mg IM, and Benadryl 25 mg IM. administered as ordered @ 1940 with positive effect, currently in bed resting quietly, monitored on 1:1 for safety, will continue to monitor.
[2022-09-15 20:40] VITALS: RESP 16
[2022-09-16] MEDS: Omeprazole 20 MG CAPSULE.DR PO (05:54)
--- NOTE | 2022-09-16 07:00 | PC.NURSE ---
Patient slept through the night, no distress observed/reported, medication compliant, awaiting care team evaluation, no behavior concern during overnight shift but unpredictable, VSS, will continue to monitor.
[2022-09-16 09:12] VITALS: BP 131/99; PULSE 70; RESP 20; TEMP 36.4; O2SAT 94
[2022-09-16] MEDS: FLUoxetine HCl 20 MG CAPSULE 40 MG PO (09:33)
[2022-09-16] MEDS: OLANZapine 7.5 MG TABLET 15 MG PO (09:33)
[2022-09-16] MEDS: Ibuprofen 600 MG TABLET PO (09:33)
[2022-09-16] MEDS: Loratadine 10 MG TABLET PO (09:33)
[2022-09-16] MEDS: QUEtiapine Fumarate 300 MG TABLET PO (09:33)
[2022-09-16] MEDS: LORazepam 1 MG TABLET PO (09:34)
[2022-09-16] MEDS: Amoxicillin 500 MG CAPSULE PO (09:34)
--- NOTE | 2022-09-16 09:38 | PC.NURSE ---
Pt awake, medicated per the MAR. Meeting with Care Team at this time.
[2022-09-16 10:03] LABS: Valproate 72.5 mcg/mL (50.0-100.0)
[2022-09-16] MEDS: Propranolol HCL 40 MG TABLET 80 MG PO (10:04)
[2022-09-16] MEDS: LORazepam 1 MG TABLET 2 MG PO (11:06)
--- NOTE | 2022-09-16 11:18 | PC.NURSE ---
Plan for long term to pick patient up around [id number]
== END 2022-09-16 13:49 | disposition home or self-care (01) ==
PROVIDERS: Physician Assistant Medical; Emergency Provider Emergency Medicine
DX: F63.81 Intermittent explosive disorder (principal); F17.210 Nicotine dependence, cigarettes, uncomplicated; Z20.822 Contact with and (suspected) exposure to COVID-19; Z20.828 Contact with and (suspected) exposure to other viral communicable diseases; Z79.899 Other long term (current) drug therapy; Z71.6 Tobacco abuse counseling
CPT/HCPCS: 36415; 80053; 80143; 80164; 80179; 80307; 81001; 82077; 85025; 87635; 96372; 99285; J1200; J2060; S9485

== ENCOUNTER 2022-10-21 09:25 | Emergency (ER) | payer OTHER, SELFPAY ==
--- NOTE | ~2022-10-21 | CT_ITS ---
EXAMINATION: CT HEAD WITHOUT CONTRAST CLINICAL INFORMATION: Fall COMPARISON: July 08, 2021 TECHNIQUE: Contiguous axial imaging was performed from the skull base to vertex without intravenous administration of contrast. This CT examination was performed using dose optimization techniques as appropriate, variously including the following: *Automated exposure control *Adjustment of mA and/or kV according to patient size (this includes techniques or standardized protocols for targeted exams where dose is matched to indication/reason for exam; i.e. extremities or head) *Use of iterative reconstruction technique DLP: 664 mGy-cm FINDINGS: No intracranial hemorrhage is identified. No significant mass effect or midline structure shift is seen. There is a region of diminished density within the white matter in the right frontal lobe which is chronic and may be related to previous infarct. Otherwise tripp-white matter interface is maintained. There is a large CSF fluid density collection seen posterior to the cerebellum midline and left of midline in positioning. There is some mass effect as far as scalloping of the adjacent calvarium. This may represent an arachnoid cyst, Dandy-Walker cyst, or possible cisterna magna. Visualized paranasal sinuses are unremarkable. There is pneumatization of the temporal bones. There are a few opacified left mastoid air cells. Temporomandibular joints unremarkable. Pterygoid plates intact. CT/CT head/brain wo IV con IMPRESSION: No acute intracranial pathology. Left posterior fossa CSF collection with some scalloping of the adjacent calvarium may be related to arachnoid cyst, Dandy-Walker cyst or may give cisterna magna.. Chronic region of encephalomalacia about the right frontal lobe.
--- NOTE | ~2022-10-21 | CT_ITS ---
EXAMINATION: CT CERVICAL SPINE WITHOUT CONTRAST CLINICAL INFORMATION: Fall COMPARISON: None available. TECHNIQUE: CT cervical spine with coronal and sagittal reconstructions. This CT examination was performed using dose optimization techniques as appropriate, variously including the following: *Automated exposure control *Adjustment of mA and/or kV according to patient size (this includes techniques or standardized protocols for targeted exams where dose is matched to indication/reason for exam; i.e. extremities or head) *Use of iterative reconstruction technique DLP: 462 mGy-cm FINDINGS: Left posterior fossa cyst again seen as discussed in CT of the head. No abnormal prevertebral soft tissue swelling is seen. Paraspinal muscle fat planes are maintained. No acute cervical spine fracture is noted. Neuroforamina are unremarkable. Visualized thyroid gland unremarkable. Pterygoid plates intact. Temporomandibular joints appear unremarkable. There is pneumatization of the mastoid air cells bilaterally with no evidence of acute mastoiditis or bony destruction. No apical lung lesion is appreciated. CT/CT cervical spine wo IV con IMPRESSION: No acute cervical spine fracture identified. Fleischner guidelines were followed.
--- NOTE | 2022-10-21 09:27 | ED.GENADULT ---
HPI - General Adult General Chief complaint: Fall Stated complaint: Fall in shower, from [facility], dizzy per EMS Time Seen by Provider: 10/21/22 09:27 Source: patient, EMS, RN notes reviewed and other ([facility] staff) Mode of arrival: EMS Limitations: no limitations History of Present Illness HPI narrative: Patient is a 32-year-old male with history of TBI, chronic static encephalopathy, intellectual disability and mood disorder presenting to the emergency department after a fall in the shower prior to arrival. Patient states that he slipped as he was getting out of the shower and fell backwards hitting his head against the wall. He denies any loss consciousness. He denies any neck or back pain. He denies any changes in vision. He denies any current headache. He reports 5/10 occipital tenderness on the left. He reports mild dizziness. He denies any nausea or vomiting. He is not on any blood thinning medication. Patient offered Tylenol during assessment for his headache which he declined. MD complaint: head injury Onset (ago): minute(s) Location: head Radiation: non-radiation Severity: moderate Severity scale (1-10): 5 Quality: dull Pain Consistency: constant Relieving factors: none Exacerbating factors: none Associated symptoms: other (dizziness) Treatments prior to arrival: none Related Data Home Medications Medication Instructions Recorded Confirmed melatonin 3 mg tablet 6 mg PO BEDTIME PRN Insomnia 10/14/21 09/15/22 divalproex 500 mg tablet,delayed 1,500 mg PO BEDTIME 02/07/22 09/15/22 release fluoxetine 40 mg capsule (Prozac) 40 mg PO DAILY 02/07/22 09/15/22 propranolol 20 mg tablet 80 mg PO QAM 02/07/22 09/15/22 quetiapine 300 mg tablet 300 mg PO BID 02/07/22 09/15/22 sennosides 8.6 mg-docusate sodium 1 tab-cap PO BEDTIME 02/07/22 09/15/22 50 mg tablet (Senna with Docusate Sodium) loratadine 10 mg tablet (Claritin) 10 mg PO QAM 06/26/22 09/15/22 lorazepam 1 mg tablet (Ativan) 1 mg PO BID 06/26/22 09/15/22 olanzapine 15 mg tablet 15 mg PO BID 06/26/22 09/15/22 albuterol sulfate 90 mcg/actuation 90 mcg inhalation BID PRN Cough 09/15/22 09/15/22 aerosol inhaler (Ventolin HFA) desmopressin 0.2 mg tablet 0.2 mg PO BEDTIME 09/15/22 09/15/22 hydroxyzine pamoate 50 mg capsule 50 mg PO QID PRN Anxiety 09/15/22 09/15/22 linaclotide 145 mcg capsule 290 mcg PO QAM 09/15/22 09/15/22 (Linzess) polyethylene glycol 3350 17 gram 17 g PO DAILY PRN Constipation 09/15/22 09/15/22 oral powder packet (Miralax) sodium chloride 0.65 % nasal spray 2 spray intranasal QID PRN 09/15/22 09/15/22 aerosol (Deep Sea Nasal) Congestion Previous Rx's Medication Instructions Recorded ibuprofen 600 mg tablet 600 mg PO Q6H PRN fever or pain 30 10/03/21 days #30 tabs omeprazole 20 mg tablet,delayed 20 mg PO DAILY 30 days #30 tabs 10/03/21 release amoxicillin 500 mg tablet 500 mg PO TID #21 tabs 09/13/22 naproxen 500 mg tablet 500 mg PO BID PRN pain (scale 09/13/22 score 4-6) #10 tabs Allergies Allergy/AdvReac Type Severity Reaction Status Date / Time risperidone [From RISPERDAL] Allergy Unknown MUCLE Verified 09/15/22 15:49 TIGHTNESS Review of Systems Review of Systems: As per HPI Yes all other systems are reviewed and are negative Constitutional: Constitutional: Reports as per HPI Neurologic: Denies Sensory deficit (Neuro) FOR[facility] Past Medical History Medical History Constipation Mental health disorder Social History Social History Household Members: Other Household Members Other:: lives in [facility] with 3 other patients Housing: House Do you presently have visiting nurse or other home services: Yes ([facility]) Alcohol intake: current Patient Tobacco Use Status: Former Tobacco user Quit Date: 06/2020 Tobacco use type: Cigarette Cigarette Packs Per Day: 1 Cigarettes Per Day: 20.0 Years Smoked: 12 Smoked in Last 30 Days: No Second Hand Smoke Exposure: No Use of substances other than those prescribed or required for medical reasons: No Advance Directives: No service: No Sexual orientation: Did not discuss. Physical Exam ED Vital Signs: Vital Signs - 24 hr 10/21/22 09:31 10/21/22 10:00 Temperature 98.1 F Pulse Rate 92 93 Respiratory Rate 16 18 Blood Pressure 120/74 Pulse Oximetry 94 93 Oxygen Delivery Method Room Air Room Air BMI result Body Mass Index 30.1 Const General: cooperative, healthy appearing and no acute distress Orientation/consciousness: oriented to person, oriented to place, oriented to time and patient oriented x3 HENMT Head: Yes No palpable skull fracture present, Yes normocephalic, No abrasion, No Londono's sign, Yes contusion (left occipital area), No hematoma, No laceration, No occipital foramen tenderness, No raccoon eyes, Yes scalp tenderness (left occipital area) and No periorbital ecchymosis Ears: external ears normal and TM's normal bilaterally General nose exam: Normal external nose present Face and sinus: Yes face symmetric Mouth: oropharynx normal and moist mucous membranes Throat: Yes posterior oropharynx normal and Yes uvula midline Eyes General: appearance normal, both eyes and all related structures Visual Zaldivar: normal visual zaldivar by confrontation Pupils: Equal, round and reactive pupils present, Pupils normal by confrontation and Pupil accommodation reflex normal EOM: EOMs intact bilaterally Neck Neck: Yes normal visual inspection, Yes full ROM and Yes supple Resp Effort & Inspection: normal respiratory effort and able to speak in complete sentences Auscultation: clear to auscultation bilaterally Cardio Rate: regular rate Rhythm: regular rhythm Heart sounds: S1 normal heart sound present and S2 normal heart sound present GI Palpation (GI): Soft to palpation and nontender Auscultation: normoactive bowel sounds General: Yes no CVA tenderness Back/Spine/Pelvis Back: no CVA tenderness Cervical Spine: normal cervical lordosis, cervical ROM normal, No collar present, No cervical muscular tenderness, No pain with cervical ROM, No Cervical spine tenderness and No step off deformity Thoracic/Lumbar Spine: No thoracic spinal tenderness and No lumbar spinal tenderness Pelvis: no pain with anterior-posterior compression and no pain with lateral compression Skin General skin exam: elasticity normal and turgor normal Trauma: no lacerations or abrasions Neuro General: oriented to person, oriented to place, oriented to time, patient oriented x3, moves all extremities, no focal motor deficits and CN's II-XI intact bilaterally Cranial nerves: Yes CN's II-XII intact bilaterally and Yes Equal, round and reactive pupils present Cognition (Neuro): normal cognition Motor exam (neuro): 5/5 motor strength present throughout and Normal motor muscle tone present throughout Sensory Exam: Normal double simultaneous stimulation for sensation; No Sensory deficit (Neuro) Extrem General: Yes full ROM, Yes no pedal edema and Yes no calf tenderness Right upper extremity: normal to inspection, full ROM and normal capillary refill Left upper extremity: normal to inspection, full ROM and normal capillary refill Right lower extremity: normal to inspection, full ROM and normal capillary refill Left lower extremity: normal to inspection, full ROM and normal capillary refill Psych Mental Status: mental status grossly normal Affect: normal affect Thought process: Normal thought process present Course Reevaluation(s) Reevaluation #1: FINDINGS: No intracranial hemorrhage is identified. No significant mass effect or midline structure shift is seen. There is a region of diminished density within the white matter in the right frontal lobe which is chronic and may be related to previous infarct. Otherwise tripp-white matter interface is maintained. There is a large CSF fluid density collection seen posterior to the cerebellum midline and left of midline in positioning. There is some mass effect as far as scalloping of the adjacent calvarium. This may represent an arachnoid cyst, Dandy-Walker cyst, or possible cisterna magna. Visualized paranasal sinuses are unremarkable. There is pneumatization of the temporal bones. There are a few opacified left mastoid air cells. Temporomandibular joints unremarkable. Pterygoid plates intact. ? CT/CT head/brain wo IV con IMPRESSION: No acute intracranial pathology. ? Left posterior fossa CSF collection with some scalloping of the adjacent calvarium may be related to arachnoid cyst, Dandy-Walker cyst or may give cisterna magna.. ? Chronic region of encephalomalacia about the right frontal lobe. Time: 11:05 Reevaluation #2: FINDINGS: Left posterior fossa cyst again seen as discussed in CT of the head. No abnormal prevertebral soft tissue swelling is seen. Paraspinal muscle fat planes are maintained. No acute cervical spine fracture is noted. Neuroforamina are unremarkable. Visualized thyroid gland unremarkable. Pterygoid plates intact. Temporomandibular joints appear unremarkable. There is pneumatization of the mastoid air cells bilaterally with no evidence of acute mastoiditis or bony destruction. No apical lung lesion is appreciated. CT/CT cervical spine wo IV con IMPRESSION: No acute cervical spine fracture identified.? ? Fleischner guidelines were followed. Patient's condition unchanged since arrival. Feel patient is safe for discharge back to [facility]. Patient and [facility] staff member in agreement. Return precautions discussed at bedside. Time: 11:42 Medical Decision Making Medical Decision Making [facility] Narrative: Patient is a 32-year-old male with history of TBI, chronic static encephalopathy, intellectual disability and mood disorder presenting to the emergency department after a fall in the shower prior to arrival. On exam patient is awake, A+Ox3, in no acute distress, normal neuro exam, no focal neurological deficits, minor contusion to left occipital area, no Londono sign, no raccoon eyes, no midline c-spine tenderness, crepitus, stepoffs or deformities. Given patient's history will obtain CT head and neck. Concern for ICH, skull fracture, cervical spine fracture. Patient advised that if he changes his mind and would like Tylenol for pain to notify the nursing staff. Plan: CT head and neck Please refer to course for remaining clinical decision making. Differential Diagnosis Differential Diagnoses: The differential diagnosis associated with the presentation includes As above Independent Interpretation I performed an independent interpretation of an: CT Scan Interpretation: I independently reviewed the CT scans and agree with the radiologist's interpretation. Radiology Impression Discussion of test interpretation with radiology: I have reviewed the radiologist's reading. Independent Historian Clinical information obtained from an independent historian. History obtained from or confirmed by: Other ([facility] staff member) External Record Review External record reviewed: Inpatient record, Office record and Outpatient record Prescription Management I considered prescription management with: Pain Medication Chronic Conditions Patient?s care impacted by: Other (TBI, chronic encephalopathy) Discharge Plan Discharge Clinical Impression: Contusion of head, Fall from standing Patient Disposition: Home, Self-Care Instructions: Head Injury (ED), Contusion in Adults (ED), Fall Prevention (ED) Additional Instructions: You have been evaluated in the emergency department today for head injury after a fall. Your CT scan did not show signs of bleed or fractures in your head or neck. We recommend you take 600 mg ibuprofen every 6 hours or Tylenol 650 mg every 6 hours as needed for pain. If needed, you can alternate these medications so that you take 1 medication every 3 hours. For instance, at noon take ibuprofen, then at 3:00 p.m. take Tylenol, then at 6:00 p.m. take ibuprofen. Please schedule an appointment with for follow-up with your primary care provider as soon as possible. Return to the emergency department if you experience worsening or uncontrolled pain, vision changes, recurrent vomiting, difficulty with normal activities, abnormal behavior, difficulty walking, numbness, weakness, or any other concerning symptoms. Prescriptions: No Action omeprazole 20 mg tablet,delayed release (DR/EC) 20 mg PO DAILY 30 Days Qty: 30 0RF Rx Instructions: Take every AM 1/2 hour prior to meal ibuprofen 600 mg tablet 600 mg PO Q6H PRN (Reason: fever or pain) 30 Days Qty: 30 0RF melatonin 3 mg Tablet 6 mg PO BEDTIME PRN (Reason: Insomnia) loratadine [Claritin] 10 mg tablet 10 mg PO QAM Rx Instructions: Every AM lorazepam [Ativan] 1 mg Tablet 1 mg PO BID olanzapine 15 mg tablet 15 mg PO BID sennosides-docusate sodium [Senna with Docusate Sodium] 8.6-50 mg Tablet 1 tab-cap PO BEDTIME fluoxetine [Prozac] 40 mg capsule 40 mg PO DAILY quetiapine 300 mg tablet 300 mg PO BID divalproex 500 mg tablet,delayed release (DR/EC) 1,500 mg PO BEDTIME propranolol 20 mg tablet 80 mg PO QAM Protocol: Hold for SBP/HR < HOLD for SBP < : 90 HOLD for HR < : 60 amoxicillin 500 mg tablet 500 mg PO TID Qty: 21 0RF naproxen 500 mg tablet 500 mg PO BID PRN (Reason: pain (scale score 4-6)) Qty: 10 0RF polyethylene glycol 3350 [Miralax] 17 gram Powder In Packet 17 g PO DAILY PRN (Reason: Constipation) desmopressin 0.2 mg Tablet 0.2 mg PO BEDTIME hydroxyzine pamoate 50 mg capsule 50 mg PO QID PRN (Reason: Anxiety) albuterol sulfate [Ventolin HFA] 90 mcg/actuation HFA aerosol inhaler 90 mcg inhalation BID PRN (Reason: Cough) Deep Sea Nasal 0.65 % aerosol,spray 2 spray intranasal QID PRN (Reason: Congestion) Linzess 145 mcg capsule 290 mcg PO QAM
[2022-10-21 09:31] VITALS: BP 118/80; PULSE 92; PULSE 95; RESP 16; TEMP 36.7; O2SAT 94; O2SAT 97; BMI 30.1
--- OUTSIDE RECORDS SUMMARY | 2022-10-21 09:44 | XMS_ITS | Continuity of Care Document ---
Author Name Unknown Organization [facility] Address [address] [place] [id number] Care Team Providers Care Cigar Head Puncher Name Role Phone Matteo EXPERIMENTAL MECHANIC SPACECRAFT, Keturah Veronica Primary Care Physician [place] [facility] [place]): [place]16[place]22 - 09/28/[address] [id number]- Encounter Diagnosis Viral URI(Discharge Diagnosis) - 09/16/22 Agitation(Final) - 09/16/22 Discharge Disposition: A-D/C Home Attending Physician: Sonia Laguna MD Admitting Physician: Sonia Laguna MD Referring Physician: Not on Staff, Referring [...] inactivated 2 07/03/19 Gi tejal 1Result Comment: [facility]: [phone] 2Result Comment: [facility] [place]# [id number] Medications albuterol 90 mcg/inh inhalation powder 2 puffs, Inhalation, Every 6 hours, PRN as needed, # 1 each, 0 Refills, Maintenance, 09/10/22 10:47:00 EDT, Powder, [place] [id number], Partial fill upon patient request if the prescription is for a schedule II opioid drug., 2 puffs In... Start Date: 09/10/22 Status: Ordered amoxicillin 500 mg oral capsule 0 Refills, Maintenance, 09/16/22 21:40:00 EDT, Partial fill upon patient request if the prescription is for a schedule II opioid drug. Start Date: 09/16/22 Status: Ordered calcium carbonate 500 mg (200 mg elemental calcium) oral tablet, chewable 500 mg, 1, tablet, By Mouth, Every 4 hours, PRN, Refills 0, Maintenance, Dyspepsia, 07/30/22 9:39:00 EST, Partial fill upon patient request if the prescription is for a schedule II opioid drug. Start Date: 07/30/22 Status: Ordered desmopressin 0.2 mg oral tablet 0 Refills, Maintenance, 09/16/22 21:40:00 EDT, Partial fill upon patient request if the prescription is for a schedule II opioid drug. Start Date: 09/16/22 Status: Ordered diclofenac 1% topical gel = [...] Refills, Maintenance, 07/30/22 9:30:00 EST, ER Tablet, [facility]- [id number], Partial fill upon patient request if the prescription is for a schedule II opioid drug., 168, cm... Start Date: 07/30/22 Status: Ordered docusate-senna 50 mg-187 mg oral tablet 2 tablet, By Mouth, Daily at bedtime, # 56 tablet, 3 Refills, Maintenance, 09/01/22 17:25:00 EDT, [id number], 28, TAKE 2 TABLETS BY MOUTH DAILY AT BEDTIME, 168, cm, 08/10/22 12:39:00 EST,Height, 88.9, kg, 07/22/22 18:11:00 EST, Dry Weight Start Date: 09/01/22 Status: Ordered Dulcolax 10 mg rectal suppository 1 supp = 10 mg, Rectally, Daily, PRN for constipation, 1 supp daily as needed for constipation, # 10 supp, 0 Refills, Maintenance, 02/03/22 15:20:00 EDT, Suppository, [facility]-[id number], Partial fill upon patient request if the prescri... Start Date: 02/03/22 Status: Ordered Fish Oil 1000 mg oral capsule 1 capsule = 1,000 mg, By Mouth, 2 times a day, may keep in fridge or freezer, # 60 capsule, 5 Refills, Maintenance, 05/05/22 16:21:00 EST, Capsule, [facility]-[id number], Partial fill upon patient request if the prescription is for a sche... Start Date: 05/05/22 Stop Date: 11/01/22 Status: Ordered FLUoxetine 20 mg oral capsule 40 mg, 2, capsule, By Mouth, Daily, # 60 capsule, Refills 0, Tot. Refills 0, Maintenance, 07/30/22 9:30:00 EST, Route to Pharmacy Electronically, [facility]-[id number], Partial fill uponpatient request if the prescription is for a schedu... Start Date: 07/30/22 Status: Ordered hydrOXYzine pamoate 50 mg oral capsule 0 Refills, Maintenance, 09/16/22 21:40:00 EDT, Partial fill upon patient request if the prescription is for a schedule II opioid drug. Start Date: 09/16/22 Status: Ordered hydrOXYzine pamoate 50 mg oral capsule 1 capsule = 50 mg, By Mouth, Every 6 hours, PRN Anxiety, # 120 capsule, 0 Refills, Maintenance, 07/30/22 9:34:00 EST, Capsule, [facility]-[id number], Partial fill upon patient request ifthe prescription is for a schedule II opioid drug.,... Start Date: 07/30/22 Status: Ordered Linzess 145 mcg oral capsule 1 capsule, By Mouth, Daily in AM, # 30 capsule, 0 Refills, [facility] [id number], 168, cm, 11/20/21 8:41:00 EDT, Height, 85.8, kg, 04/07/21 14:21:00 EDT, Dry Weight Start Date: 01/08/22 Status: Ordered Linzess 290 mcg oral capsule 1 capsule = 290 mcg, By Mouth, Daily, # 30 capsule, 6 Refills, Maintenance, 08/30/22 10:42:00 EDT, [facility]-[id number], Partial fill upon patient request if the prescription is for a schedule II opioid drug., 168, cm, 08/10/22 12:39:00... Start Date: 08/30/22 Stop Date: 03/28/23 Status: Ordered loratadine 10 mg oral tablet 10 mg, 1, tablet, By Mouth, Daily in AM, # 30 tablet, Refills 0, Tot. Refills 0, Maintenance, 07/30/22 9:30:00 EST, Route to Pharmacy Electronically, [facility]-[id number], Partial fill upon patient request if the prescription is for a sc... Start Date: 07/30/22 Status: Ordered LORazepam 1 mg oral tablet 0 Refills, Maintenance, 09/16/22 21:40:00 EDT, Partial fill upon patient request if the prescription is for a schedule II opioid drug. Start Date: 09/16/22 Status: Ordered LORazepam 1 mg oral tablet 1 tablet = 1 mg, By Mouth, Every 6 hours, PRN Agitation, # 120 tablet, 0 Refills, Maintenance, 07/30/22 9:30:00 EST, Tablet, [id number], Partial fill upon patient request if the prescription is for a schedule II opioid drug., 1... Start Date: 07/30/22 Status: Ordered melatonin 10 mg oral tablet 1 tablet = 10 mg, By Mouth, Daily at bedtime, PRN as needed for insomnia, # 30 tablet, 0 Refills, Maintenance, 07/30/22 9:31:00 EST, Tablet, [facility]-[id number], Partial fill upon patient request if the prescription is for a schedule II... Start Date: 07/30/22 Status: Ordered olanzapine 10 mg oral tablet 10 mg, 1, tablet, By Mouth, 2 times a day, # 60 tablet, Refills 0, Tot. Refills 0, Maintenance, 09/28/22 9:53:00 EDT, Route to Pharmacy Electronically, [facility]-[id number], Partial fill upon patient request if the prescription is for a... Start Date: 09/28/22 Status: Ordered olanzapine 5 mg oral tablet Refills 0, Maintenance, 09/16/22 21:40:00 EDT, Partial fill upon patient request if the prescription is for a schedule II opioid drug. Start Date: 09/16/22 Status: Ordered olanzapine 5 mg oral tablet 5 mg, 1, tablet, By Mouth, 2 times a day, # 60 tablet, Refills 0, Tot. Refills 0, Maintenance, 07/30/22 9:32:00 EST, Route to Pharmacy Electronically, [facility]-[id number], Partial fillupon patient request if the prescription is for a s... Start Date: 07/30/22 Status: Ordered pantoprazole 20 mg oral delayed release tablet 0 Refills, Maintenance, 09/16/22 21:40:00 EDT Start Date: 09/16/22 Status: Ordered pantoprazole 20 mg oral delayed release tablet = 20 mg, By Mouth, Daily in AM, # 30 tablet, 5 Refills, Maintenance, 09/04/22 17:04:00 EDT, [facility] Tablet, 168, cm, 08/10/22 12:39:00 EST, Height, 88.9, kg, 07/22/22 18:11:00 EST, Dry Weight Start Date: 09/04/22 Status: Ordered propranolol 80 mg oral capsule, extended release Refills 0, Maintenance, 09/16/22 21:40:00 EDT, Partial fill upon patient request if the prescription is for a schedule II opioid drug. Start Date: 09/16/22 Status: Ordered propranolol 80 mg oral capsule, extended release 80 mg, 1, capsule, By Mouth, Daily, # 30 capsule, Refills 0, Tot. Refills 0, Maintenance, 07/30/22 9:34:00 EST, Route to Pharmacy Electronically, [facility]-[id number], Partial fill uponpatient request if the prescription is for a schedu... Start Date: 07/30/22 Status: Ordered propranolol 80 mg oral capsule, extended release 80 mg, CR Capsule, By Mouth, 09/28/22 9:00:00 EDT Start Date: 09/28/22 Stop Date: 09/28/22 Status: Completed QUEtiapine 100 mg oral tablet 300 mg, 3, tablet, By Mouth, 2 times a day, # 180 tablet, Refills 0, Tot. Refills 0, Maintenance, 07/30/22 9:34:00 EST, Route to Pharmacy Electronically, [facility]-[id number], Partial fill upon patient request if the prescription is for... Start Date: 07/30/22 Status: Ordered Saline Mist 0.65% nasal spray 2 sprays, Nares, Both, 4 times a day, PRN Congestion, # 1 each, 0 Refills, Maintenance, 09/10/22 10:48:00 EDT, [facility], Partial fill upon patient request if the prescription is for a schedule II opioid drug., 2 sprays Nares,... Start Date: 09/10/22 Stop Date: 10/10/22 Status: Ordered Problem List Condition Confirmation Course Effective Dates Status H ealth Status Informant Allergic rhinitis Confirmed Active Bipolar disorder Confirmed Active Chronic constipation Confirmed Active Developmental disability Confirmed Active Intermittent explosive disorder in adult Confirmed Active Chronic GERD Confirmed Active Injury of right shoulder Confirmed 08/15/20 Active Lives in correction Confirmed Active Obese class I Confirmed Active Obesity Confirmed Active Pain of right humerus Confirmed 08/15/20 Active Annual physical exam Confirmed Active Tobacco abuse Confirmed Active Umbilical hernia Confirmed Active Diagnosis Diagnosis Type Effective Dates Health Status Cl[facility] Service Informant Viral URI Discharge Diagnosis 09/16/22 Non-Specified Vital Signs Most recent to oldest [Reference Range]: 1 2 3 Oxygen Saturation [94-100 %] 99 % (09/28/22 8:02 AM) 97 % (09/27/22 7:51 PM) 96 % (09/27/22 10:13 AM) Pulse Rate [55-90 bpm] 68 bpm (09/28/22 8:02 AM) 73 bpm (09/27/22 7:51 PM) 74 bpm (09/27/22 10:13 AM) Blood Pressure [90-138/55-84 mm Hg] 136/89mm Hg (09/28/22 8:02 AM) 117/77mm Hg (09/27/22 7:51 PM) 117/73mm Hg (09/27/22 10:13 AM) Respiratory Rate [16-30 br/min] 16 br/min (09/28/22 8:02 AM) 16 br/min (09/27/22 7:51 PM) 18 br/min (09/27/22 10:13 AM) Temperature [96.8-100.4 DegF] 98 DegF (09/28/22 8:02 AM) 98.1 DegF (09/27/22 7:51 PM) 97.7 DegF (09/27/22 10:13 AM) Mode of Delivery (Oxygen) Room air (09/28/22 8:02 AM) Room air (09/27/22 7:51 PM) Room air (09/27/22 10:13 AM) Blood pressure sites Arm, right (09/27/22 6:37 AM) Arm, left (09/26/22 9:52 PM) Arm, left (09/24/22 7:28 PM) Temperature Route Oral (09/28/22 8:02 AM) Oral (09/27/22 7:51 PM) Oral (09/27/22 10:13 AM) Social History Social History Type Response [...] Unknown Unknown 01/01/23 Unknown Unknown Active [facility] EKG study * Event Display: EKG Authored Date: * Event Display: EKG Authored Date: * Event Display: ECG 12-Lead Authored Date: Please click on pdf link to open report * Event Display: ECG 12-Lead Authored Date: Ventricular Rate: 68 BPM Atrial Rate: 68 BPM P-R Interval: 142 ms QRS Duration: 94 ms Q-T Interval: 420 ms QTC Calculation(Bazett): 446 ms P [place]: 2 degrees R [place]: 48 degrees T [place]: 26 degrees Normal sinus rhythm with sinus arrhythmia Normal ECG When compared with ECG of 23-JUL-2022 10:19, No significant change was found Confirmed by GILBERTO MALDONADO MD ([id number]) on 09/20/2022 2:03:00 PM [place]: GILBERTO MALDONADO MD Hospital Progress note * Event Display: Progress Note Hospital Authored Date: * Figueroa Lauren HARTMAN: PERFORM Event Display: Progress Note Hospital Authored Date: [id number] Patient: ??MARGE SIMMONS ? Age:??32 Years?Sex:??Male?:??1990?? Subjective Chief complaint:? Can I go home yet? ?? Patient seen, chart reviewed, and discussed with treatment team.? Interval History: No acute overnight events. Patient is seen today briefly in follow-up??due to prolonged ED boarding. Marge reports that he is feeling frustrated by ongoing ED boarding, but otherwisestable overall. He feels as though he has been able to remain in better behavioral control and seek assistance from nursing and/or counselors for additional support if and when needed. He has utilized Zyprexa 5 mg PO x1, Ativan 1 mg PO x2 and Benadryl 50 mg PO x1 yesterday, but has not required anyseclusions nor restraints since 09/22/22. He feels well enough to return to his . He denies any current auditory or visual hallucinations.??He denies any paranoia or delusions.?? Denies any symptoms concerning for anxiety or depression.?? He otherwise denies any suicidality, homicidality, or desires for self???injures behaviors.?? He denies any adverse effects on current psychotropic medicationregimen. ? Review of Systems Pertinent positives as listed above in HPI. ??Otherwise, remainder of review of systems negative. Objective ? Vital Signs?? Temperature: 98.1 DegF (09/24/22 19:28:00) Temperature Route: Oral (09/24/22 19:28:00) Pulse Rate: 76 bpm (09/25/22 08:47:00) Respiratory Rate: 17 br/min (09/24/22 19:28:00) Systolic Blood Pressure: 123 mm Hg (09/25/22 08:47:00) Diastolic Blood Pressure: 78 mm Hg (09/25/22 08:47:00) Blood pressure sites: Arm, left (09/24/22 19:28:00) Mean Arterial Pressure: 87 mm Hg (09/24/22 19:28:00) Pulse Pressure: 52 mm Hg (09/24/22 19:28:00) Oxygen Saturation: 97 % (09/24/22 19:28:00) Mode of Delivery (Oxygen): Room air (09/24/22 19:28:00) ? Physical Exam Mental Status Exam Appearance: Hospital gown, disheveled, glasses, lying in bed under covers Eye contact: Within normal limits Attitude: Cooperative Motor Activity: Calm, psychomotor slowing; absent of tics, tremors, psychomotor agitation Mood: I'm feeling good Affect: Flat, sluggish motility Speech: Nonspontaneous, normal rate, low tone, latency, brief responses Perception: No reported AVH;?? appears internally preoccupied, but not overtly responding to internal stimuli Orientation: Intact to person, place and situation Memory: Grossly intact Thought Process: [place] Thought Content: Hopeful, future-oriented, advocating for discharge. Relevant to encounter. No paranoia or delusional content evinced. Medication Adherence: Generally fair Reliability: Limited historian Insight: Limited Judgment: Limited Impulse control: Limited; no??behavioral dysregulation necessitating chemical sedation within the last 24 hours Suicidality/Self-destructive Behavior: None currently Homicidality/Violence: None currently Muscle strength/tone: Antigravity. No rigidity noted. Moving all four extremities spontaneously. Not observed ambulating. ?? _ Inpatient Medications Medications (21) Active SCHEDULED: (11) Desmopressin 0.2 mg Tablet (desmopressin 0.2 mg oral tablet) ??0.2 mg, By Mouth, Daily Divalproex Sodium 500mg ER Tablet (Depakote ER Tablet) ??1,500 mg, By Mouth, Daily Fluoxetine 20 mg Capsule (FLUoxetine 20 mg oral capsule) ??40 mg, By Mouth, Daily in AM Lorazepam 1 mg Tablet (Ativan 1 mg oral tablet) ??1 mg, By Mouth, 2 times a day Melatonin 3 mg Tablet (Melatonin Tablet) ??9 mg, By Mouth, Daily at bedtime Olanzapine 10mg Tablet (olanzapine 10 mg oral tablet) ??10 mg, By Mouth, 2 times a day Pantoprazole 20 mg EC Tablet (pantoprazole 20 mg oral delayed release tablet) ??20 mg, By Mouth, Daily in AM Propranolol 80 mg CR Capsule (propranolol 80 mg oral capsule, extended release) ??80 mg, By Mouth, Daily Psyllium Powder (Metamucil Powder) ??5.85 Gm 1 pack/packet, By Mouth, 3 times a day Quetiapine 100 mg Tablet (SEROquel 100 mg oral tablet) ??300 mg, By Mouth, 2 times a day Senna 8.6 mg / Docusate 50 mg tablet (Docusate/Senna Tablet) ??2 tablet, By Mouth, Daily at bedtime CONTINUOUS: (0) PRN: (10) Acetaminophen 325 mg Tablet (Acetaminophen Tablet) ??650 mg, By Mouth, Every 8 hours Albuterol 90mcg/Inhalation Inhaler HFA (albuterol CFC free 90 mcg/inh inhalation aerosol) ??180 mcg2 puffs, Inhalation, Every 4 hours diphenhydrAMINE 25 mg Tablet (Benadryl Tablet) ??50 mg, By Mouth, Every 6 hours diphenhydrAMINE 50 mg/mL Inj (Benadryl Inj) ??50 mg 1 mL, Intramuscular, Every 6 hours HydrOXYzine Pamoate 25mg Capsule (hydrOXYzine pamoate 25 mg oral capsule) ??50 mg, By Mouth, Every 6 hours Ibuprofen 400 mg Tablet (Ibuprofen Tablet) ??400 mg, By Mouth, Every 8 hours Lorazepam 1 mg Tablet (LORazepam 1 mg oral tablet) ??1 mg, By Mouth, Every 6 hours Olanzapine 10 mg Inj (Zyprexa Inj) ??5 mg, Intramuscular, Every 6 hours Olanzapine 5 mg Tablet (olanzapine 5 mg oral tablet) ??5 mg, By Mouth, Every 6 hours Trazodone 50 mg Tablet (traZODone 50 mg oral tablet) ??50 mg, By Mouth, Daily at bedtime ? Results Recent Labs No labs resulted between 09/24/2022 00:00 and 09/25/2022 11:39? Assessment/Plan Assessment? In brief, this is a 32-year-old male with past medical history significant for bipolar disorder, chronic constipation, developmental disability, intermittent explosive disorder who initially presented to [facility] for evaluation of SI and HI. At this point in time, the patient has been medically cleared and referred to??crisis clinicians??for evaluation and assistance with disposition for potential inpatient psychiatric hospitalization. The emergency psychiatry service was consulted for assistance with medication management.?? Reviewed data including medical records, crisis evaluation, test results, prescription history from [facility]. Initial psychiatric evaluation was un productive as patient refused to cooperate with the interview due to being tired. Patient was agitated yesterday evening upon arrival to [facility] and received IMs. Since then he has been calm and has been resting most of the day in his room. Per correction, patient's assaultive outbursts towards staff have been escalating in intensity and frequency with no apparent precipitant. There is concern for patient risk of harm to??others as evidenced by recent agitation at his correction and in the ED as well as his continued endorsement of a desire to hurt people at his correction. This appears to culver established problem which is inadequately controlled and is worsening. Because of patient's lackof cooperation, unable to ask him about treatment-related preferences.??Unable to explain??to the patient the differential diagnosis, risks of untreated illness, treatment options, and benefits and risks of treatment. Patient did not answer when asked about a desire to hurt himself. Will restart his home medications and add PRNs for agitation/psychosis and insomnia. Will continue to monitor his pr ogress and??may adjust medications in the future if he continues to be agitated while in the emergency department. ?? 09/22/22: Stable clinical presentation. Denies any adverse effects on current psychotropic medications. Will titrate Zyprexa for mood stabilization. Will obtain Depakote level prior to further optimization. He remains??a bed search for IPL in the context of multiple episodes of psychomotor agitation necessitating chemical sedation in the last 24 hours, but strong consideration for possible diversion if he can maintain fair behavioral control and demonstrate no concerns for acute/imminent safety in the next 24-48 hours. ?? 09/25/22: Denies any SI/HI/AVH.??Since recent??titration of Zyprexa, there have been no further episodes of psychomotor agitation necessitating chemical sedation nor restraints in the last 48+ hours.Stable clinical presentation. Continue all psychotropic medications as currently scheduled.??Reasonable to consider possible diversion with care coordination in the outpatient setting and return backto . ?? Diagnoses Unspecified depressive disorder with psychotic features Rule out bipolar spectrum disorder Rule out MDD/R/S with psychotic features Intermittent explosive disorder Developmental disability Agitation ?? Recommendations -Disposition as per??[facility], albeit currently a bed search for inpatient psychiatric hospitalization. Consider possible diversion if we are able to confirm safe disposition plan with discharge back to correction.?? -Continue home medications: ? -Propranolol ER 80 mg PO daily ? -Ativan 1 mg PO twice daily @0900 @1500 (hold for excess sedation, RR<12) ? -Continue Zyprexa??10??mg PO twice daily for mood stabilization and/or??agitation - previously 5 mg PO??twice daily. ? -Seroquel 300 mg PO twice daily ? -melatonin 9 mg PO daily at bedtime ? -Prozac 40 mg PO daily in AM ? -Depakote ER 1500 mg PO daily -Continue Vistaril 50 mg PO??q6h PRN anxiety -Continue Trazodone 50 mg PO nightly PRN insomnia, may repeat x 1 -Continue Zyprexa 5 mg and Benadryl 50 mg PO/IM??q6h PRN agitation/psychosis. The preference is forPO medications, but if the patient refuses the oral medications and there is sufficient acute safety concern, can judiciously utilize IM equivalents for severe agitation.?? -Would note that these medications are only being utilized in the ER while the patient awaits placement. Long-term need for these medications will need to be assessed by the patient's future treatingpsychiatrist. -Seclusion or restraint may only be used as interventions of last resort in the management of severe agitation in patient. If they are used, seclusion and restraint episodes should be as short as possible, dignified, and as safe as possible for all involved. Patient preference should always be considered when feasible. ? Thank you for allowing us to participate in this patient's care. We will continue to follow the patient as needed by the primary team. Please feel free to contact the Psychiatry consult service ([phone] or [phone]) with any questions or concerns.? Lauren Figueroa D.O.?? Doll Dresser, Emergency Psychiatry Services Division of Consultation-Liaison Psychiatry Department of Psychiatry [facility] ?? * Lauren Figueroa DO: PERFORM, MODIFY Event Display: Progress Note Hospital Authored Date: Patient: ??MARGE SIMMONS ? Age:??32 Years?Sex:??Male?:??1990?? Subjective Chief complaint:? Will I get a roommate at that hospital? ?? Patient seen, chart reviewed, and discussed with treatment team.? Interval History: Patient is seen today in follow-up??due to prolonged ED boarding. Marge has had a tough??few days, adherent with many of his psychotropic medications, but unfortunately still requiring Zyprexa 5 mg p.o. x1, IM x2, Ativan 1 mg p.o. x1, and Benadryl 50 mg IM x1 within the last 24 hours for management of psychomotor agitation.?? On interview this afternoon, he reports that he is feeling generally well, apparently had a bad morning, but was able to take himself out of that just by talking to someone.?? He then quickly corrects himself to say that maybe he did it on his own.?? He denies any current auditory visual loose [place].?? He denies any paranoia or delusions.?? Denies any symptoms concerning for anxiety or depression.?? He is frustrated by the prolonged ED boarding, advocating to be placed on an inpatient psychiatric unit today if possible.?? He otherwise denies any suicidality, homicidality, or desires for self???injures behaviors.?? He denies any adverse effects on current psychotropic medication regimen. ?? Review of Systems Pertinent positives as listed above in HPI. ??Otherwise, remainder of review of systems negative. Objective ? Vital Signs?? Pulse Rate: 89 bpm (09/22/22 10:18:00) Respiratory Rate: 20 br/min (09/21/22 22:47:00) Systolic Blood Pressure: 123 mm Hg (09/22/22 10:18:00) Diastolic Blood Pressure:??91 mm Hg??High (09/22/22 10:18:00) Mean Arterial Pressure: 102 mm Hg (09/21/22 22:47:00) Pulse Pressure: 32 mm Hg (09/21/22 22:47:00) Oxygen Saturation: 96 % (09/21/22 22:47:00) Mode of Delivery (Oxygen): Room air (09/21/22 22:47:00) ? Physical Exam Mental Status Exam Appearance: Casual, disheveled, glasses Eye contact: Frequently averted Attitude: Superficially cooperative Motor Activity: Calm, psychomotor slowing; absent of tics, tremors, psychomotor agitation Mood: Better now Affect: Flat, sluggish motility Speech: Nonspontaneous, normal rate, low tone, latency, brief responses Perception: No reported AVH;?? appears internally preoccupied, but not overtly responding to internal stimuli Orientation: Intact to person and place Memory: Grossly intact Thought Process: [place] Thought Content: Sparse, but otherwise relevant to encounter. Medication Adherence: Generally fair Reliability: Limited historian Insight: Impaired Judgment: Impaired?? Impulse control: Impaired as evident by behavioral dysregulation necessitating chemical sedation within the last 24 hours Suicidality/Self-destructive Behavior: None currently Homicidality/Violence: None currently Muscle strength/tone: Antigravity. No rigidity noted. Moving all four extremities spontaneously. Ambulating without gait disturbance.? _ Inpatient Medications Medications (22) Active SCHEDULED: (12) Amoxicillin 250 mg Capsule (Amoxicillin Capsule) ??500 mg, By Mouth, 3 times a day Desmopressin 0.2 mg Tablet (desmopressin 0.2 mg oral tablet) ??0.2 mg, By Mouth, Daily Divalproex Sodium 500mg ER Tablet (Depakote ER Tablet) ??1,500 mg, By Mouth, Daily Fluoxetine 20 mg Capsule (FLUoxetine 20 mg oral capsule) ??40 mg, By Mouth, Daily in AM Lorazepam 1 mg Tablet (Ativan 1 mg oral tablet) ??1 mg, By Mouth, 2 times a day Melatonin 3 mg Tablet (Melatonin Tablet) ??9 mg, By Mouth, Daily at bedtime Olanzapine (olanzapine 5 mg oral tablet) ??10 mg, By Mouth, 2 times a day Pantoprazole 20 mg EC Tablet (pantoprazole 20 mg oral delayed release tablet) ??20 mg, By Mouth, Daily in AM Propranolol 80 mg CR Capsule (propranolol 80 mg oral capsule, extended release) ??80 mg, By Mouth, Daily Psyllium Powder (Metamucil Powder) ??5.85 Gm 1 pack/packet, By Mouth, 3 times a day Quetiapine 100 mg Tablet (SEROquel 100 mg oral tablet) ??300 mg, By Mouth, 2 times a day Senna 8.6 mg / Docusate 50 mg tablet (Docusate/Senna Tablet) ??2 tablet, By Mouth, Daily at bedtime CONTINUOUS: (0) PRN: (10) Acetaminophen 325 mg Tablet (Acetaminophen Tablet) ??650 mg, By Mouth, Every 8 hours Albuterol 90mcg/Inhalation Inhaler HFA (albuterol CFC free 90 mcg/inh inhalation aerosol) ??180 mcg2 puffs, Inhalation, Every 4 hours diphenhydrAMINE 25 mg Tablet (Benadryl Tablet) ??50 mg, By Mouth, Every 6 hours diphenhydrAMINE 50 mg/mL Inj (Benadryl Inj) ??50 mg 1 mL, Intramuscular, Every 6 hours HydrOXYzine Pamoate 25mg Capsule (hydrOXYzine pamoate 25 mg oral capsule) ??50 mg, By Mouth, Every 6 hours Ibuprofen 400 mg Tablet (Ibuprofen Tablet) ??400 mg, By Mouth, Every 8 hours Lorazepam 1 mg Tablet (LORazepam 1 mg oral tablet) ??1 mg, By Mouth, Every 6 hours Olanzapine 10 mg Inj (Zyprexa Inj) ??5 mg, Intramuscular, Every 6 hours Olanzapine 5 mg Tablet (olanzapine 5 mg oral tablet) ??5 mg, By Mouth, Every 6 hours Trazodone 50 mg Tablet (traZODone 50 mg oral tablet) ??50 mg, By Mouth, Daily at bedtime ? Results Recent Labs VIROLOGY Influenza A PCR NEGATIVE ()?? 09/21/2022 21:21 Influenza B PCR NEGATIVE ()?? 09/21/2022 21:21 RSV PCR NEGATIVE ()?? 09/21/2022 21:21 COVID-19 PCR Specimen Source NASAL ()?? 09/21/2022 21:21 COVID-19 PCR Result NEGATIVE ()?? 09/21/2022 21:21 ? Assessment/Plan Assessment? In brief, this is a 32-year-old male with past medical history significant for bipolar disorder, chronic constipation, developmental disability, intermittent explosive disorder who initially presented to [facility] for evaluation of SI and HI. At this point in time, the patient has been medically cleared and referred to??crisis clinicians??for evaluation and assistance with disposition for potential inpatient psychiatric hospitalization. The emergency psychiatry service was consulted for assistance with medication management.?? Reviewed data including medical records, crisis evaluation, test results, prescription history from [facility]. Initial psychiatric evaluation was un productive as patient refused to cooperate with the interview due to being tired. Patient was agitated yesterday evening upon arrival to [facility] and received IMs. Since then he has been calm and has been resting most of the day in his room. Per correction, patient's assaultive outbursts towards staff have been escalating in intensity and frequency with no apparent precipitant. There is concern for patient risk of harm to??others as evidenced by recent agitation at his correction and in the ED as well as his continued endorsement of a desire to hurt people at his correction. This appears to culver established problem which is inadequately controlled and is worsening. Because of patient's lackof cooperation, unable to ask him about treatment-related preferences.??Unable to explain??to the patient the differential diagnosis, risks of untreated illness, treatment options, and benefits and risks of treatment. Patient did not answer when asked about a desire to hurt himself. Will restart his home medications and add PRNs for agitation/psychosis and insomnia. Will continue to monitor his pr ogress and??may adjust medications in the future if he continues to be agitated while in the emergency department. ?? 09/22/22: Stable clinical presentation. Denies any adverse effects on current psychotropic medications. Will titrate Zyprexa for mood stabilization. Will obtain Depakote level prior to further optimization. He remains??a bed search for IPLOC in the context of multiple episodes of psychomotor agitation necessitating chemical sedation in the last 24 hours, but strong consideration for possible diversion if he can maintain fair behavioral control and demonstrate no concerns for acute/imminent safety in the next 24-48 hours. ?? Diagnoses Unspecified depressive disorder with psychotic features Rule out bipolar spectrum disorder Rule out MDD/R/S with psychotic features Intermittent explosive disorder Developmental disability Agitation ?? Recommendations -Disposition as per[facility], albeit currently a bed search for inpatient psychiatric hospitalization. Consider possible diversion in the next 24-48 hours if no overt acute/imminent safety concerns necessitating IPLOC. -Continue home medications: ? -Propranolol ER 80 mg PO daily ? -Ativan 1 mg PO twice daily @0900 @1500 (hold for excess sedation, RR<12) ? -Titrating Zyprexa??from 5 to 10??mg PO twice daily for mood stabilization and/or??agitation. ? -Seroquel 300 mg PO twice daily ? -melatonin 9 mg PO daily at bedtime ? -Prozac 40 mg PO daily in AM ? -Depakote ER 1500 mg PO daily -Continue Vistaril 50 mg PO??q6h PRN anxiety -Continue Trazodone 50 mg PO nightly PRN insomnia, may repeat x 1 -Continue Zyprexa 5 mg and Benadryl 50 mg PO/IM??q6h PRN agitation/psychosis. The preference is forPO medications, but if the patient refuses the oral medications and there is sufficient acute safety concern, can judiciously utilize IM equivalents for severe agitation.?? -Would note that these medications are only being utilized in the ER while the patient awaits placement. Long-term need for these medications will need to be assessed by the patient's future treatingpsychiatrist. -Seclusion or restraint may only be used as interventions of last resort in the management of severe agitation in patient. If they are used, seclusion and restraint episodes should be as short as possible, dignified, and as safe as possible for all involved. Patient preference should always be considered when feasible. -Follow-up lab orders for tomorrow AM including CBC, BMP, LFTs, total protein, albumin and Depakotelevel. ?? Thank you for allowing us to participate in this patient's care. We will continue to follow the patient as needed by the primary team. Please feel free to contact the Psychiatry consult service ([phone] or page [phone]) with any questions or concerns.? Lauren Figueroa D.O.?? Doll Dresser, Emergency Psychiatry Services Division of Consultation-Liaison Psychiatry Department of Psychiatry [facility] ? Patient Care team information Care Team Personnel Name: Mayra Clay RN Position: [facility] RN Member Role: Primary Care Nurse Name: Keturah Felipe NP Position: [facility] PCO Associate Professional Member Role: PCP Address: Address: [facility] [place] [address]- Name: Sonal Dumont RN Position: [facility] RN Supv Member Role: Primary Care Nurse Name: Priscilla Pelletier RN Position: [facility] RN Member Role: Primary Care Nurse Name: *[facility], ED Attending Position: [facility] ED Attendings Patient Name: Shruthi Monaco RN Position: [facility] ED RN W/OE and Tasks Member Role: Patient Care Provider Name: Sonia Laguna MD Position: [facility] ED Medicine MD Member Role: Admitting Physician Address: Address: [address] [place] [address] [place] [address]- Care Team Related Persons Name: HIRAL EGAN Address: [place] [address] Name: DENISHA EGAN Address: [place] [address] Name: ELLA MUNGUIA Address: home [address] [place] [id number] Name: HIEN ANGELES Address: home UNKNOWN
--- OUTSIDE RECORDS SUMMARY | 2022-10-21 09:48 | XMS_ITS | Continuity of Care Document ---
Author Name Unknown Organization [facility] Address [address] [place] [address]- Care Team Providers Care Boat Outfitter Name Role Phone Matteo DIAMOND SANDER, Keturah Veronica Primary Care Physician Encounter [facility] NBR [id number] Date(s): 09/04/22 - 10/04/22 [facility] [address] [place] [address]- [place] Allergies, Adverse Reactions, Alerts Substance Reaction Severity Status Risperdal unkown Active Immunizations Given and Recorded Vaccine Date Status Refusal Reason tetanus/diphtheria/pertussis, acel(Tdap) 1 07/09/22 Given SARS-CoV-2 (COVID-19) mRNA-1273 vaccine 06/09/21 R ecorded SARS-CoV-2 (COVID-19) mRNA-1273 vaccine 04/17/21 R ecorded influenza virus vaccine, inactivated 04/17/21 Lebron rded influenza virus vaccine, inactivated 2 07/03/19 Gi tejal 1Result Comment: [facility]: 98210-168-34 2Result Comment: [facility]# 93878-096-12 Medications albuterol 90 mcg/inh inhalation powder 2 puffs, Inhalation, Every 6 hours, PRN as needed, # 1 each, 0 Refills, Maintenance, 09/10/22 10:47:00 EDT, Powder, [facility]-94935, Partial fill upon patient request if the [...] Refills, Maintenance, 07/30/22 9:30:00 EST, ER Tablet, [facility]- [address]4873, Partial fill upon patient request if the prescription is for a schedule II opioid drug., 168, cm... Start Date: 07/30/22 Status: Ordered docusate-senna 50 mg-187 mg oral tablet 2 tablet, By Mouth, Daily at bedtime, # 56 tablet, 3 Refills, Maintenance, 09/01/22 17:25:00 EDT, [facility]-[id number], 28, TAKE 2 TABLETS BY MOUTH DAILY AT BEDTIME, 168, cm, 08/10/22 12:39:00 EST,Height, 88.9, kg, 07/22/22 18:11:00 EST, Dry Weight Start Date: 09/01/22 Status: Ordered Dulcolax 10 mg rectal suppository 1 supp = 10 mg, Rectally, Daily, PRN for constipation, 1 supp daily as needed for constipation, # 10 supp, 0 Refills, Maintenance, 02/03/22 15:20:00 EDT, Suppository, [facility]-[id number], Partial fill upon patient request if the prescri... Start Date: 02/03/22 Status: Ordered Fish Oil 1000 mg oral capsule 1 capsule, By Mouth, 2 times a day, *MAY KEEP IN FRIDGE OR FREEZER*., # 56 capsule, 5 Refills, Maintenance, 09/30/22 16:34:00 EDT, [employer] [facility] [id number], 168, cm, 09/10/22 11:07:00 EDT, Height, 88.9, kg, 07/22/22 18:11:00 EST, Dry Weight Start Date: 09/30/22 Status: Ordered FLUoxetine 20 mg oral capsule 40 mg, 2, capsule, By Mouth, Daily, # 60 capsule, Refills 0, Tot. Refills 0, Maintenance, 07/30/22 9:30:00 EST, [id number], Partial fill uponpatient request if the prescription [...] 0 Refills, Maintenance, 07/30/22 9:34:00 EST, [facility]apsule, [facility], Partial fill upon patient request ifthe prescription is for a schedule II opioid drug.,... Start Date: 07/30/22 Status: Ordered Linzess 145 mcg oral capsule 1 capsule, By Mouth, Daily in AM, # 30 capsule, 0 Refills, [employer] [address]22, 168, cm, 11/20/21 8:41:00 EDT, Height, 85.8, kg, 04/07/21 14:21:00 EDT, Dry Weight Start Date: 01/08/22 Status: Ordered Linzess 290 mcg oral capsule 1 capsule = 290 mcg, By Mouth, Daily, # 30 capsule, 6 Refills, Maintenance, 08/30/22 10:42:00 EDT, [facility] [place]-[address]279, Partial fill upon patient request if the prescription is for a schedule II opioid drug., 168, cm, 08/10/22 12:39:00... Start Date: 08/30/22 Stop Date: 03/28/23 Status: Ordered loratadine 10 mg oral tablet 10 mg, 1, tablet, By Mouth, Daily in AM, # 30 tablet, Refills 0, Tot. Refills 0, Maintenance, 07/30/22 9:30:00 EST, Route to Pharmacy Electronically, [facility]-[id number], Partial fill upon patient request if the [...] 0 Refills, Maintenance, 07/30/22 9:30:00 EST, [facility]t, [facility] [place], Partial fill upon patient request if the prescription is for a schedule II opioid drug., 1... Start Date: 07/30/22 Status: Ordered melatonin 10 mg oral tablet 1 tablet = 10 mg, By Mouth, Daily at bedtime, PRN as needed for insomnia, # 30 tablet, 0 Refills, Maintenance, 07/30/22 9:31:00 EST, Tablet, [facility] [place]668, Partial fill upon patient request if the prescription is for a schedule II... Start Date: 07/30/22 Status: Ordered olanzapine 10 mg oral tablet 10 mg, 1, tablet, By Mouth, 2 times a day, # 60 tablet, Refills 0, Tot. Refills 0, Maintenance, 09/28/22 9:53:00 EDT, Route to Pharmacy Electronically, [facility]-92837, Partial fill upon patient request if the [...] 07/30/22 9:32:00 EST, Route to Pharmacy Electronically, [facility]-72587, Partial fillupon patient request if the prescription [...] 07/30/22 9:34:00 EST, Route to Pharmacy Electronically, [facility]-71279, Partial fill uponpatient request if the prescription is for a schedu... Start Date: 07/30/22 Status: Ordered QUEtiapine 100 mg oral tablet 300 mg, 3, tablet, By Mouth, 2 times a day, # 180 tablet, Refills 0, Tot. Refills 0, Maintenance, 07/30/22 9:34:00 EST, Route to Pharmacy Electronically, [facility]-77425, Partial fill upon patient request if the prescription is for... Start Date: 07/30/22 Status: Ordered Saline Mist 0.65% nasal spray 2 sprays, Nares, Both, 4 times a day, PRN Congestion, # 1 each, 0 Refills, Maintenance, 09/10/22 10:48:00 EDT, [facility]-36377, Partial fill upon patient request if the [...] right shoulder Confirmed 08/15/20 Active Lives in intermediate Confirmed Active Obese class I Confirmed Active [...] Unknown Unknown Unknown 01/01/23 Unknown Unknown Active Hayden celia Patient Care team information Care Team Personnel Name: Mayra Clay RN Position: S RN Member Role: Primary Care Nurse Name: Keturah Felipe NP Position: [facility] PCO Associate Professional Member Role: PCP Address: Address: [place], [place] [address] Name: Sonal Duomnt RN Position: S RN Supv Member Role: Primary Care Nurse Name: Priscilla Pelletier RN Position: S RN Member Role: Primary Care Nurse Care Team Related Persons Name: HIRAL EGAN Address: [place] [address] Name: DENISHA EGAN Address: [place] [address] Name: ELLA MUNGUIA Address: home [address] [place] [address] Name: HIEN ANGELES Address: home UNKNOWN
--- OUTSIDE RECORDS SUMMARY | 2022-10-21 09:48 | XMS_ITS | Continuity of Care Document ---
Author Name Unknown Organization [facility] Address [address] [place] [address]- Care Team Providers Care Boat Tender Name Role Phone Matteo COMPLIANCE REPRESENTATIVE DEALER, Keturah Veronica Primary Care Physician [id number] Date(s): 09/08/22 - 10/08/22 [facility] [address] [place] [address]- [place] Allergies, Adverse Reactions, Alerts Substance Reaction Severity Status Risperdal unkown Active Immunizations Given and Recorded Vaccine Date Status Refusal Reason tetanus/diphtheria/pertussis, acel(Tdap) 1 07/09/22 Given SARS-CoV-2 (COVID-19) mRNA-1273 vaccine 06/09/21 R ecorded SARS-CoV-2 (COVID-19) mRNA-1273 vaccine 04/17/21 R ecorded influenza virus vaccine, inactivated 04/17/21 Lebron rded influenza virus vaccine, inactivated 2 07/03/19 Gi tejal 1Result Comment: [facility]: 78880-327-10 2Result Comment: [facility]# 19124-348-31 Medications albuterol 90 mcg/inh inhalation powder 2 puffs, Inhalation, Every 6 hours, PRN as needed, # 1 each, 0 Refills, Maintenance, 09/10/22 10:47:00 EDT, Powder, [facility], [place]-[id number], Partial fill upon patient request if the [...] Refills, Maintenance, 07/30/22 9:30:00 EST, ER Tablet, [facility] [place]- [address]597, Partial fill upon patient request if the prescription is for a schedule II opioid drug., 168, cm... Start Date: 07/30/22 Status: Ordered docusate-senna 50 mg-187 mg oral tablet 2 tablet, By Mouth, Daily at bedtime, # 56 tablet, 3 Refills, Maintenance, 09/01/22 17:25:00 EDT, [facility]-[id number], 28, TAKE 2 TABLETS BY MOUTH DAILY AT BEDTIME, 168, cm, 08/10/22 12:39:00 EST,Height, 88.9, kg, 07/22/22 18:11:00 EST, Dry Weight Start Date: 09/01/22 Status: Ordered Dulcolax 10 mg rectal suppository 1 supp = 10 mg, Rectally, Daily, PRN for constipation, 1 supp daily as needed for constipation, # 10 supp, 0 Refills, Maintenance, 02/03/22 15:20:00 EDT, Suppository, [facility], [place]-[id number], Partial fill upon patient request if the prescri... Start Date: 02/03/22 Status: Ordered Fish Oil 1000 mg oral capsule 1 capsule, By Mouth, 2 times a day, *MAY KEEP IN FRIDGE OR FREEZER*., # 56 capsule, 5 Refills, Maintenance, 09/30/22 16:34:00 EDT, [id number], 168, cm, 09/10/22 11:07:00 EDT, Height, 88.9, kg, 07/22/22 18:11:00 EST, Dry Weight Start Date: 09/30/22 Status: Ordered FLUoxetine 20 mg oral capsule 40 mg, 2, capsule, By Mouth, Daily, # 60 capsule, Refills 0, Tot. Refills 0, Maintenance, 07/30/22 9:30:00 EST, Route to Pharmacy Electronically, [facility]-[id number], Partial fill uponpatient request if the prescription [...] 0 Refills, Maintenance, 07/30/22 9:34:00 EST, [facility]apsule, [facility]84[facility], Partial fill upon patient request ifthe prescription is for a schedule II opioid drug.,... Start Date: 07/30/22 Status: Ordered Linzess 145 mcg oral capsule 1 capsule, By Mouth, Daily in AM, # 30 capsule, 0 Refills, [facility] 05184, 168, cm, 11/20/21 8:41:00 EDT, Height, 85.8, kg, 04/07/21 14:21:00 EDT, Dry Weight Start Date: 01/08/22 Status: Ordered Linzess 290 mcg oral capsule 1 capsule = 290 mcg, By Mouth, Daily, # 30 capsule, 6 Refills, Maintenance, 08/30/22 10:42:00 EDT, [facility]-29563, Partial fill upon patient request if the prescription is for a schedule II opioid drug., 168, cm, 08/10/22 12:39:00... Start Date: 08/30/22 Stop Date: 03/28/23 Status: Ordered loratadine 10 mg oral tablet 10 mg, 1, tablet, By Mouth, Daily in AM, # 30 tablet, Refills 0, Tot. Refills 0, Maintenance, 07/30/22 9:30:00 EST, Route to Pharmacy Electronically, [facility]-[id number], Partial fill upon patient request if the [...] 0 Refills, Maintenance, 07/30/22 9:30:00 EST, [facility], [facility], Partial fill upon patient request if the prescription is for a schedule II opioid drug., 1... Start Date: 07/30/22 Status: Ordered melatonin 10 mg oral tablet 1 tablet = 10 mg, By Mouth, Daily at bedtime, PRN as needed for insomnia, # 30 tablet, 0 Refills, Maintenance, 07/30/22 9:31:00 EST, Tablet, [facility]14[facility], Partial fill upon patient request if the prescription is for a schedule II... Start Date: 07/30/22 Status: Ordered olanzapine 10 mg oral tablet 10 mg, 1, tablet, By Mouth, 2 times a day, # 60 tablet, Refills 0, Tot. Refills 0, Maintenance, 09/28/22 9:53:00 EDT, Route to Pharmacy Electronically, [facility]-[id number], Partial fill upon patient request if the [...] 07/30/22 9:32:00 EST, Route to Pharmacy Electronically, [facility] [place], Partial fillupon patient request if the prescription [...] 07/30/22 9:34:00 EST, Route to Pharmacy Electronically, [facility], [place]-[id number], Partial fill uponpatient request if the prescription is for a schedu... Start Date: 07/30/22 Status: Ordered QUEtiapine 100 mg oral tablet 300 mg, 3, tablet, By Mouth, 2 times a day, # 180 tablet, Refills 0, Tot. Refills 0, Maintenance, 07/30/22 9:34:00 EST, Route to Pharmacy Electronically, [facility] [place], Partial fill upon patient request if the prescription is for... Start Date: 07/30/22 Status: Ordered Saline Mist 0.65% nasal spray 2 sprays, Nares, Both, 4 times a day, PRN Congestion, # 1 each, 0 Refills, Maintenance, 09/10/22 10:48:00 [facility]-[id number], Partial fill upon patient request if the [...] right shoulder Confirmed 08/15/20 Active Lives in snf Confirmed Active Obese class [...] Unknown Unknown Unknown 01/01/23 Unknown Unknown Active Haydenk celia Patient Care team information Care Team Personnel Name: Mayra Clay RN Position: S RN Member Role: Primary Care Nurse Name: Keturah Felipe NP Position: [facility] PCO Associate Professional Member Role: PCP Address: Address: [address] [place] [id number] Name: Sonal Dumont RN Position: S RN Supv Member Role: Primary Care Nurse Name: Priscilla Pelletier RN Position: S RN Member Role: Primary Care Nurse Care Team Related Persons Name: HIRAL EGAN Address: [place] [address] Name: DENISHA EGAN Address: home [place], [place] Name: ELLA MUNGUIA Address: home [address] [place] [id number] Name: HIEN ANGELES Address: home [place]KNOWN
--- OUTSIDE RECORDS SUMMARY | 2022-10-21 09:49 | XMS_ITS | Continuity of Care Document ---
Author Name Unknown Organization [facility] Address [address] [place] [address]- Care Team Providers Care General Utility Worker Name Role Phone Matteo WANIGAN CLERK, Keturah Veronica Primary Care Physician Encounter [facility] NBR [id number] Date(s): 08/26/22 - 09/25/22 [facility] [address] [place] [address]- [place] Allergies, Adverse Reactions, Alerts Substance Reaction Severity Status Risperdal unkown Active Immunizations Given and Recorded Vaccine Date Status Refusal Reason tetanus/diphtheria/pertussis, acel(Tdap) 1 07/09/22 Given SARS-CoV-2 (COVID-19) mRNA-1273 vaccine 06/09/21 R ecorded SARS-CoV-2 (COVID-19) mRNA-1273 vaccine 04/17/21 R ecorded influenza virus vaccine, inactivated 04/17/21 Lebron rded influenza virus vaccine, inactivated 2 07/03/19 Gi tejal 1Result Comment: [facility][NOTE 3]: 11810-359-45 2Result Comment: [facility][NOTE 3]# 35727-854-89 Medications albuterol 90 mcg/inh inhalation powder 2 puffs, Inhalation, Every 6 hours, PRN as needed, # 1 each, 0 Refills, Maintenance, 09/10/22 10:47:00 EDT, Powder, [facility]-[id number], Partial fill upon patient request if the [...] Refills, Maintenance, 07/30/22 9:30:00 EST, ER Tablet, [facility]- [id number], Partial fill upon patient request if the prescription is for a schedule II opioid drug., 168, cm... Start Date: 07/30/22 Status: Ordered docusate-senna 50 mg-187 mg oral tablet 2 tablet, By Mouth, Daily at bedtime, # 56 tablet, 3 Refills, Maintenance, 09/01/22 17:25:00 EDT, [facility]-[id number], 28, TAKE 2 TABLETS BY MOUTH DAILY AT BEDTIME, 168, cm, 08/10/22 12:39:00 EST,Height, 88.9, kg, 07/22/22 18:11:00 EST, Dry Weight Start Date: 09/01/22 Status: Ordered Dulcolax 10 mg rectal suppository 1 supp = 10 mg, Rectally, Daily, PRN for constipation, 1 supp daily as needed for constipation, # 10 supp, 0 Refills, Maintenance, 02/03/22 15:20:00 EDT, Suppository, [facility]-[id number], Partial fill upon patient request if the prescri... Start Date: 02/03/22 Status: Ordered Fish Oil 1000 mg oral capsule 1 capsule = 1,000 mg, By Mouth, 2 times a day, may keep in fridge or freezer, # 60 capsule, 5 Refills, Maintenance, 05/05/22 16:21:00 EST, Capsule, [facility]-[id number], Partial fill upon patient request if the prescription is for a sche... Start Date: 05/05/22 Stop Date: 11/01/22 Status: Ordered FLUoxetine 20 mg oral capsule 40 mg, 2, capsule, By Mouth, Daily, # 60 capsule, Refills 0, Tot. Refills 0, Maintenance, 07/30/22 9:30:00 EST, Route to Pharmacy Electronically, [facility]-[id number], Partial fill uponpatient request if the prescription [...] 0 Refills, Maintenance, 07/30/22 9:34:00 EST, Capsule, [facility]-[id number], Partial fill upon patient request ifthe prescription is for a schedule II opioid drug.,... Start Date: 07/30/22 Status: Ordered Linzess 145 mcg oral capsule 1 capsule, By Mouth, Daily in AM, # 30 capsule, 0 Refills, [facility] [id number], 168, cm, 11/20/21 8:41:00 EDT, Height, 85.8, kg, 04/07/21 14:21:00 EDT, Dry Weight Start Date: 01/08/22 Status: Ordered Linzess 290 mcg oral capsule 1 capsule = 290 mcg, By Mouth, Daily, # 30 capsule, 6 Refills, Maintenance, 08/30/22 10:42:00 EDT, [facility][id number], Partial fill upon patient request if the prescription is for a schedule II opioid drug., 168, cm, 08/10/22 12:39:00... Start Date: 08/30/22 Stop Date: 03/28/23 Status: Ordered loratadine 10 mg oral tablet 10 mg, 1, tablet, By Mouth, Daily in AM, # 30 tablet, Refills 0, Tot. Refills 0, Maintenance, 07/30/22 9:30:00 EST, Route to Pharmacy Electronically, [facility]-[id number], Partial fill upon patient request if the [...] 0 Refills, Maintenance, 07/30/22 9:30:00 EST, Tablet, [facility]-[id number], Partial fill upon patient request if the prescription is for a schedule II opioid drug., 1... Start Date: 07/30/22 Status: Ordered melatonin 10 mg oral tablet 1 tablet = 10 mg, By Mouth, Daily at bedtime, PRN as needed for insomnia, # 30 tablet, 0 Refills, Maintenance, 07/30/22 9:31:00 EST, Tablet, [facility]-[id number], Partial fill upon patient request if the [...] 07/30/22 9:32:00 EST, Route to Pharmacy Electronically, [facility]-06005, Partial fillupon patient request if the prescription [...] 07/30/22 9:34:00 EST, Route to Pharmacy Electronically, [facility]-[id number], Partial fill uponpatient request if the prescription is for a schedu... Start Date: 07/30/22 Status: Ordered QUEtiapine 100 mg oral tablet 300 mg, 3, tablet, By Mouth, 2 times a day, # 180 tablet, Refills 0, Tot. Refills 0, Maintenance, 07/30/22 9:34:00 EST, Route to Pharmacy Electronically, [facility]-30590, Partial fill upon patient request if the prescription is for... Start Date: 07/30/22 Status: Ordered Saline Mist 0.65% nasal spray 2 sprays, Nares, Both, 4 times a day, PRN Congestion, # 1 each, 0 Refills, Maintenance, 09/10/22 10:48:00 EDT, [facility]-[id number], Partial fill upon patient request if the [...] Care Nurse Name: Keturah Felipe NP Position: [facility] PCO Associate Professional Member Role: PCP Address: Address: [address] [place] [address] [place], [place] [address] Name: Sonal Dumont RN Position: [facility] RN Supv Member Role: Primary Care Nurse Name: Priscilla Pelletier RN Position: S RN Member Role: Primary Care Nurse Care Team Related Persons Name: HIRAL EGAN Address: home [place] [address] Name: DENISHA EGAN Address: home [place] [address] Name: ELLA MUNGUIA Address: home [address] [place] [address] Name: HIEN ANGELES Address: home UNKNOWN
[2022-10-21 10:00] VITALS: BP 120/74; PULSE 93; RESP 18; O2SAT 93
[2022-10-21 12:02] VITALS: BP 107/68; PULSE 76; RESP 15; O2SAT 95
== END 2022-10-21 12:05 | disposition home or self-care (01) ==
PROVIDERS: Emergency Provider Student in an Organized Health Care Education/Training Program
DX: S00.93XA Contusion of unspecified part of head, initial encounter (principal); R51.9 Headache, unspecified; M54.2 Cervicalgia; W18.2XXA Fall in (into) shower or empty bathtub, initial encounter; Y93.9 Activity, unspecified; Y92.002 Bathroom of unspecified non-institutional (private) residence as the place of occurrence of the external cause; Y99.9 Unspecified external cause status; Z79.899 Other long term (current) drug therapy
CPT/HCPCS: 70450; 72125; 99284

== ENCOUNTER 2022-11-21 11:42 | Emergency (ER) | payer OTHER, SELFPAY ==
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
[2022-11-21 11:43] VITALS: BP 117/88; PULSE 72; RESP 18; TEMP 37.1; O2SAT 94; BMI 27.4
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
--- NOTE | 2022-11-21 12:05 | PC.NURSE ---
Patient arrived via stretcher by [facility] Department. Cooperative with pack changer. Patient did not respond to nursing Assessment questions.
[2022-11-21] MEDS: LORazepam 1 MG TABLET PO (12:45)
[2022-11-21] MEDS: hydrOXYzine HCL 50 MG TABLET PO (12:45)
[2022-11-21 13:57] LABS: MANUAL DIFF FLAG NO
[2022-11-21 14:05] LABS: Basophils Percent Auto 0.3 % (0-2); Eosinophils Absolute Auto 0.1 X10*3/uL (0.0-0.4); Eosinophils Percent Auto 1.3 % (0-4); Hematocrit 41.6 % (42.0-52.0); Hemoglobin 14.6 g/dl (14.0-18.0); Imm Gran Abs Auto 0.05 X10*3/uL (0.00-0.03); Imm Gran Pct Auto 0.7 % (0.0-0.4); Lymphocytes Absolute Auto 1.9 X10*3/uL (1.2-4.9); Lymphocytes Percent Auto 27.2 % (20-40); Mean Corpuscular HGB Conc 35.1 g/dl (31.0-36.0); Mean Corpuscular Volume 94.1 fL (80.0-98.0); Mean Platelet Volume 8.9 fL (9.4-12.4); Monocytes Absolute Auto 0.7 X10*3/uL (0.1-1.2); Neutrophils Absolute Auto 4.1 x10*3/uL (2.0-8.3); Neutrophils Percent Auto 60.5 % (45-73); Platelet Count 151 X10*3/uL (160-400); Red Blood Count 4.42 X10*6/uL (4.60-5.80); Red Cell Distribution Width 11.4 % (11.0-16.0); White Blood Count 6.8 X10*3/uL (4.8-10.8)
[2022-11-21 14:09] LABS: Appearance Urine Clear; Color Urine Dark Yellow; Glucose Urine UA Negative (Negative); Leukocyte Esterase Urine Negative (Negative); Nitrite Urine Negative (Negative); PH 6.5 (5.0-9.0); Specific Gravity - Urine 1.025 (1.005-1.025); Urine Blood Negative (Negative); Urine Ketones Trace mg/dL (Negative); Urine Protein Negative (Neg-Trace)
[2022-11-21 14:11] LABS: Ethanol < 10 mg/dL
[2022-11-21 14:14] LABS: Alanine Aminotransferase 32 U/L (0-40); Albumin Level 4.2 g/dL (3.5-5.0); Alkaline Phosphatase 87 U/L (39-117); Anion Gap 14 (12-20); Aspartate Amino Transferase 36 U/L (5-37); Bilirubin Direct 0.3 mg/dL (0.0-0.5); Bilirubin Total 1.1 mg/dL (0.0-1.0); Blood Urea Nitrogen 18 mg/dL (9-16); COVID-19 Test Negative (Negative); Calcium 9.5 mg/dL (8.4-10.2); Carbon Dioxide 25 mmol/L (22-29); Chloride 105 mmol/L (96-108); Creatinine Clr Calc Pharmacy 111.3; Estimated Glomerular Filt Rate > 60; Glucose Random 106 mg/dL (60-115); IDNOW Serial# 08D9AD1C; Magnesium 1.9 mg/dL (1.6-2.6); Potassium 3.9 mmol/L (3.3-5.1); Sodium 140 mmol/L (135-145); Total Protein 7.5 g/dL (6.5-8.0)
[2022-11-21 14:17] LABS: Amphetamine Screen Urine Not Detected (Not Detect); Barbiturates, Urine Not Detected (Not Detect); Benzodiazepines Screen Urine Not Detected (Not Detect); Cannabinoid Screen Urine Not Detected (Not Detect); Cocaine Screen Urine Not Detected (Not Detect); Fentanyl, urine Not Detected (Not Detect); Opiate Screen Urine Not Detected (Not Detect); Phencyclidine Screen Urine Not Detected (Not Detect)
[2022-11-21] MEDS: Ibuprofen 600 MG TABLET PO ×2 (14:59→19:25)
--- NOTE | 2022-11-21 15:30 | MHC.CARE ---
Spoke with patient's RN Renee Guerrero [phone]. She is in agreement that patient should remain the night for medication stabilization, re-assess by t/w and contact in the morning, ideally to arrange transport if patient remains medication compliant and in bx control. Patient uses [facility] on [facility].
--- NOTE | 2022-11-21 16:26 | PHA.MEDREC ---
Pharmacy Consult ? Medication Reconciliation Pharmacy has completed the medication reconciliation. Spoke to patient's nurse Renee Guerrero ([phone]) to confirm meds.
[2022-11-21 20:48] VITALS: BP 126/83; PULSE 75; RESP 18; TEMP 36.9; O2SAT 95
[2022-11-21] MEDS: OLANZapine 10 MG TABLET PO (20:49)
[2022-11-21] MEDS: Desmopressin Acetate 0.2 MG TABLET PO (20:49)
[2022-11-21] MEDS: Divalproex Sodium 500 MG TABLET.DR 1500 MG PO (20:49)
[2022-11-21] MEDS: Melatonin 3 MG TABLET 9 MG PO (20:49)
[2022-11-21] MEDS: QUEtiapine Fumarate 300 MG TABLET PO (20:56)
[2022-11-21] MEDS: Sennosides/Docusate Sodium TABLET 2 TAB PO (20:56)
--- NOTE | 2022-11-22 07:05 | PC.NURSE ---
Patient slept through the night, no distress observed/reported, medication compliant, behavior non concerning and in good control, patient was seen by care team, disposition d/c back to group after AM MSU is completed, will continue to monitor.
--- NOTE | 2022-11-22 07:10 | PC.NURSE ---
resumed care of patient this morning, he is currently resting at this time, pt had a stable night, no complaints noted by night nurse, awaiting care team to talk with patient and return to [facility]
[2022-11-22] MEDS: Sennosides/Docusate Sodium TABLET 2 TAB PO (09:05)
[2022-11-22] MEDS: FLUoxetine HCl 20 MG CAPSULE 40 MG PO (09:05)
[2022-11-22] MEDS: OLANZapine 10 MG TABLET PO (09:05)
[2022-11-22] MEDS: Loratadine 10 MG TABLET PO (09:05)
[2022-11-22] MEDS: LORazepam 1 MG TABLET PO (09:05)
[2022-11-22 09:07] VITALS: BP 136/88; PULSE 61; RESP 18; TEMP 36.4; O2SAT 98
--- NOTE | 2022-11-22 09:18 | PC.NURSE ---
Pt reporting feeling so so this morning with staff, stated he is [facility] to [facility] because he feels like one of the staff members is upsetting him, pt given emotional support, and is currently working on a puzzle, and took all morning medications with no issues
--- NOTE | 2022-11-22 09:57 | PC.NURSE ---
Pharmacy called and alerted we were missing to medications, reported they will bring them down
== END 2022-11-22 12:46 | disposition home or self-care (01) ==
PROVIDERS: Physician Assistant; Emergency Provider Emergency Medicine; PCP Internal Medicine
DX: F63.81 Intermittent explosive disorder (principal); M79.672 Pain in left foot; Z20.822 Contact with and (suspected) exposure to COVID-19; G93.49 Other encephalopathy; F79 Unspecified intellectual disabilities; F39 Unspecified mood [affective] disorder; Z87.820 Personal history of traumatic brain injury; Z87.891 Personal history of nicotine dependence; Z79.899 Other long term (current) drug therapy
CPT/HCPCS: 73630; 80048; 80076; 80307; 81003; 83735; 85025; 87635; 99285; S9485

== ENCOUNTER 2022-11-30 17:12 | Emergency (ER) | payer OTHER, SELFPAY ==
[2022-11-30 17:52] VITALS: BP 112/65; PULSE 84; RESP 16; TEMP 37.1; O2SAT 93; BMI 25.1
--- NOTE | 2022-11-30 18:22 | PC.NURSE ---
PT INITIALLY AGREEABLE TO TAKE PO MEDS. WAS HANDED CUP OF THEM, PROCEEDED TO THROW THEM INTO CORNER OF NURSES STATION. PT CONTINUES TO PACE AROUND POD, MAKING THREATENING STATEMENTS, PICKING UP TRASH CAN. MD CONTACTED FOR POSSIBLE CHEMICAL RESTRAINTS.
[2022-11-30] MEDS: LORazepam 1 MG TABLET 2 MG PO (18:33)
[2022-11-30] MEDS: OLANZapine 10 MG TABLET PO ×2 (18:33→21:58)
[2022-11-30 19:26] LABS: MANUAL DIFF FLAG NO
[2022-11-30 19:39] LABS: Basophils Percent Auto 0.4 % (0-2); Eosinophils Absolute Auto 0.1 X10*3/uL (0.0-0.4); Eosinophils Percent Auto 1.1 % (0-4); Hematocrit 41.2 % (42.0-52.0); Hemoglobin 14.5 g/dl (14.0-18.0); Imm Gran Abs Auto 0.06 X10*3/uL (0.00-0.03); Imm Gran Pct Auto 0.8 % (0.0-0.4); Lymphocytes Absolute Auto 2.3 X10*3/uL (1.2-4.9); Lymphocytes Percent Auto 31.5 % (20-40); Mean Corpuscular HGB Conc 35.2 g/dl (31.0-36.0); Mean Corpuscular Hemoglobin 32.8 pg (27.0-33.0); Mean Corpuscular Volume 93.2 fL (80.0-98.0); Mean Platelet Volume 9.2 fL (9.4-12.4); Monocytes Absolute Auto 0.9 X10*3/uL (0.1-1.2); Monocytes Percent Auto 11.9 % (2-11); Neutrophils Absolute Auto 3.9 x10*3/uL (2.0-8.3); Neutrophils Percent Auto 54.3 % (45-73); Platelet Count 164 X10*3/uL (160-400); Red Blood Count 4.42 X10*6/uL (4.60-5.80); Red Cell Distribution Width 11.3 % (11.0-16.0); White Blood Count 7.2 X10*3/uL (4.8-10.8)
[2022-11-30 19:44] LABS: COVID-19 Test Negative (Negative); IDNOW Serial# BCCEAD1C
[2022-11-30 19:56] LABS: Alanine Aminotransferase 37 U/L (0-40); Albumin Level 4.4 g/dL (3.5-5.0); Alkaline Phosphatase 86 U/L (39-117); Anion Gap 14 (12-20); Aspartate Amino Transferase 35 U/L (5-37); Bilirubin Total 0.7 mg/dL (0.0-1.0); Blood Urea Nitrogen 18 mg/dL (9-16); Calcium 9.5 mg/dL (8.4-10.2); Carbon Dioxide 24 mmol/L (22-29); Chloride 105 mmol/L (96-108); Creatinine Clr Calc Pharmacy 105.3; Estimated Glomerular Filt Rate > 60; Ethanol < 10 mg/dL; Glucose Random 117 mg/dL (60-115); Potassium 3.9 mmol/L (3.3-5.1); Sodium 139 mmol/L (135-145); Total Protein 7.5 g/dL (6.5-8.0)
[2022-11-30 20:15] LABS: Valproate 79.3 mcg/mL (50.0-100.0)
[2022-11-30 20:37] LABS: Amphetamine Screen Urine Not Detected (Not Detect); Barbiturates, Urine Not Detected (Not Detect); Benzodiazepines Screen Urine Not Detected (Not Detect); Cannabinoid Screen Urine Not Detected (Not Detect); Cocaine Screen Urine Not Detected (Not Detect); Opiate Screen Urine Not Detected (Not Detect); Phencyclidine Screen Urine Not Detected (Not Detect)
[2022-11-30 20:40] LABS: Fentanyl, urine Not Detected (Not Detect)
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
[2022-11-30] MEDS: Melatonin 3 MG TABLET 9 MG PO (21:58)
[2022-11-30] MEDS: Divalproex Sodium 500 MG TABLET.DR 1500 MG PO (21:58)
[2022-11-30] MEDS: Desmopressin Acetate 0.2 MG TABLET PO (21:58)
[2022-11-30] MEDS: QUEtiapine Fumarate 300 MG TABLET PO (21:59)
--- NOTE | 2022-12-01 05:47 | PC.NURSE ---
Patient slept through the night, no distress observed/reported, med rec completed/ medication compliant, VSS, care consult ordered/pending evaluation, behavior non concerning, labs completed/resulted, will continue to monitor.
[2022-12-01] MEDS: Omeprazole 20 MG CAPSULE.DR PO (06:40)
--- NOTE | 2022-12-01 08:39 | PC.NURSE ---
Physician Obs. status ordered
[2022-12-01 09:29] VITALS: BP 119/80; PULSE 64; RESP 14; TEMP 36.2; O2SAT 96
[2022-12-01] MEDS: Loratadine 10 MG TABLET PO (09:52)
[2022-12-01] MEDS: FLUoxetine HCl 20 MG CAPSULE 40 MG PO (09:52)
[2022-12-01] MEDS: LORazepam 1 MG TABLET PO (09:52)
[2022-12-01] MEDS: OLANZapine 10 MG TABLET PO (09:52)
[2022-12-01] MEDS: Propranolol HCL 40 MG TABLET 80 MG PO (10:08)
--- NOTE | 2022-12-01 10:31 | PC.NURSE ---
Per Idris Grande MD, give 0900 dose of Quetiapine 300mg BID now
[2022-12-01] MEDS: QUEtiapine Fumarate 100 MG TABLET 300 MG PO (10:34)
--- NOTE | 2022-12-01 11:14 | PC.NURSE ---
Spoke with Perla Clemente, compliance program manager where [facility] lives. Told Perla that the Care Team had assessed [facility] this morning, and was recommending discharge at this time. Per Perla, she has concerns with [facility] being discharged because she said that this is a recurring issue with the voices and Perla feels that that issue needs to be further addressed prior to discharge to prevent this from happening again in the future. Will notify Mike from Care Team with Perla's concerns.
--- NOTE | 2022-12-01 11:20 | PC.NURSE ---
Spoke with Mike from the Care Team and relayed Perla's concerns to him. Mike said that he will speak with the ED provider and call Perla back.
--- NOTE | 2022-12-01 13:15 | MHC.CARE ---
CARE Team speaks with monkey trainer Perla to gather collateral information and later to discuss discharge. Perla will be sending [facility] Staff to collect pt after discharge.
== END 2022-12-01 13:59 | disposition home or self-care (01) ==
PROVIDERS: Emergency Provider Emergency Medicine Emergency Medical Services
DX: F91.8 Other conduct disorders (principal); R45.6 Violent behavior; Z20.822 Contact with and (suspected) exposure to COVID-19; Z79.899 Other long term (current) drug therapy; Z87.891 Personal history of nicotine dependence
CPT/HCPCS: 36415; 80053; 80164; 80307; 85025; 87635; 99284; 99285; S9485

== ENCOUNTER 2022-12-02 10:42 | Outpatient (REF) | payer OTHER, SELFPAY | END 2022-12-02 10:43 | disposition home or self-care (01) | LOC: HO.LAB 10:42 | PROVIDERS: Visit Provider Registered Nurse Psychiatric/Mental Health | DX: F63.81 Intermittent explosive disorder (principal); Z79.899 Other long term (current) drug therapy | CPT/HCPCS: 36415; 80164 ==

== ENCOUNTER 2022-12-31 09:56 | Emergency (ER) | payer OTHER, SELFPAY ==
[2022-12-31 10:35] VITALS: BP 118/80; PULSE 90; RESP 18; TEMP 36.6; O2SAT 95; BMI 30.4
--- NOTE | 2022-12-31 11:51 | PC.NURSE ---
Pt wrote a note to staff stating he is hearing voices right now, and the voices are telling him to throw a plug against the wall and kill himself. Pt verbalized he was not going to act on these voices. Pt educated he can speak to staff any time he and to inform staff if the voices continue or he plans on listening to the voices. Pt stated he just wanted to let staff know what the voices were telling him. Pt stated he wants to color. Given 3 markers and currently coloring in [facility] area.
[2022-12-31 11:55] LABS: MANUAL DIFF FLAG NO
[2022-12-31 12:00] LABS: Appearance Urine Clear; Basophils Percent Auto 0.6 % (0-2); Color Urine Dark Yellow; Eosinophils Absolute Auto 0.1 X10*3/uL (0.0-0.4); Eosinophils Percent Auto 2.1 % (0-4); Glucose Urine UA Negative (Negative); Hematocrit 41.3 % (42.0-52.0); Hemoglobin 14.5 g/dl (14.0-18.0); Imm Gran Abs Auto 0.04 X10*3/uL (0.00-0.03); Imm Gran Pct Auto 0.8 % (0.0-0.4); Leukocyte Esterase Urine Negative (Negative); Lymphocytes Percent Auto 38.3 % (20-40); Mean Corpuscular HGB Conc 35.1 g/dl (31.0-36.0); Mean Corpuscular Volume 94.1 fL (80.0-98.0); Monocytes Absolute Auto 0.7 X10*3/uL (0.1-1.2); Monocytes Percent Auto 14.2 % (2-11); Neutrophils Absolute Auto 2.3 x10*3/uL (2.0-8.3); Nitrite Urine Negative (Negative); Platelet Count 148 X10*3/uL (160-400); Red Blood Count 4.39 X10*6/uL (4.60-5.80); Red Cell Distribution Width 11.4 % (11.0-16.0); Specific Gravity - Urine 1.025 (1.005-1.025); Urine Blood Negative (Negative); Urine Ketones Trace mg/dL (Negative); Urine Protein Trace mg/dL (Neg-Trace); White Blood Count 5.2 X10*3/uL (4.8-10.8)
[2022-12-31 12:13] LABS: Amphetamine Screen Urine Not Detected (Not Detect); Barbiturates, Urine Not Detected (Not Detect); Benzodiazepines Screen Urine Not Detected (Not Detect); Cannabinoid Screen Urine Not Detected (Not Detect); Cocaine Screen Urine Not Detected (Not Detect); Fentanyl, urine Not Detected (Not Detect); Opiate Screen Urine Not Detected (Not Detect); Phencyclidine Screen Urine Not Detected (Not Detect)
[2022-12-31 12:17] LABS: Alanine Aminotransferase 36 U/L (0-40); Albumin Level 4.3 g/dL (3.5-5.0); Alkaline Phosphatase 79 U/L (39-117); Anion Gap 17 (12-20); Aspartate Amino Transferase 34 U/L (5-37); Bilirubin Total 0.7 mg/dL (0.0-1.0); Blood Urea Nitrogen 16 mg/dL (9-16); Calcium 9.5 mg/dL (8.4-10.2); Carbon Dioxide 20 mmol/L (22-29); Chloride 107 mmol/L (96-108); Creatinine Clr Calc Pharmacy 113.6; Estimated Glomerular Filt Rate > 60; Glucose Random 94 mg/dL (60-115); Potassium 4.4 mmol/L (3.3-5.1); Sodium 140 mmol/L (135-145); Total Protein 7.6 g/dL (6.5-8.0)
[2022-12-31 12:20] LABS: Salicylate < 5.0 mg/dL (15-30)
--- NOTE | 2022-12-31 12:25 | ED_ITS ---
HPI - Psych General Chief Complaint: Psychiatric Symptoms Stated Complaint: SEC 12, COMBATIVE AT [facility], C+C PER EMS Time Seen by Provider: 12/31/22 12:18 Source: patient Mode of arrival: ambulatory Limitations: no limitations History of Present Illness HPI Narrative: 32 yo male w/?history of TBI, chronic static encephalopathy, intermittent explosive disorder, intellectual disability and mood disorder?coming from a [employer] [facility] [employer] after getting into a verbal altercation with another resident. Patient denies SI/HI/hallucinations/substance use. No physical complaints Related Data Home Medications Medication Instructions Recorded Confirmed divalproex 500 mg tablet,delayed 1,500 mg PO BEDTIME 02/07/22 11/30/22 release fluoxetine 40 mg capsule (Prozac) 40 mg PO DAILY 02/07/22 11/30/22 propranolol 20 mg tablet 80 mg PO DAILY 02/07/22 11/30/22 quetiapine 300 mg tablet 300 mg PO BID 02/07/22 11/30/22 sennosides 8.6 mg-docusate sodium 2 tab-cap PO BEDTIME 02/07/22 11/30/22 50 mg tablet (Senna with Docusate Sodium) loratadine 10 mg tablet (Claritin) 10 mg PO DAILY 06/26/22 11/30/22 lorazepam 1 mg tablet (Ativan) 1 mg PO DAILY 06/26/22 11/30/22 desmopressin 0.2 mg tablet 0.2 mg PO BEDTIME 09/15/22 11/30/22 hydroxyzine pamoate 50 mg capsule 50 mg PO Q6H PRN Anxiety 09/15/22 11/30/22 polyethylene glycol 3350 17 gram 17 g PO DAILY PRN Constipation 09/15/22 11/30/22 oral powder packet (Miralax) linaclotide 290 mcg capsule 290 mcg PO DAILY 11/21/22 11/30/22 (Linzess) melatonin 10 mg capsule 10 mg PO BEDTIME 11/21/22 11/30/22 olanzapine 10 mg tablet 10 mg PO BID 11/21/22 11/30/22 omega 3-vtj-feg-fish oil 300 1 cap PO BID 11/21/22 11/30/22 mg-1,000 mg capsule pantoprazole 20 mg tablet,delayed 20 mg PO DAILY@0630 06/17/23 06/26/23 release Previous Rx's Medication Instructions Recorded ibuprofen 600 mg tablet 600 mg PO Q6H PRN fever or pain 30 10/03/21 days #30 tabs Allergies Allergy/AdvReac Type Severity Reaction Status Date / Time risperidone [From RISPERDAL] Allergy Unknown MUCLE Verified 09/15/22 15:49 TIGHTNESS Review of Systems Review of Systems: Yes all other systems are reviewed and are negative Constitutional: Constitutional: Reports no additional constitutional complaints, Denies body ache(s), Denies chills, Denies fever(s), Denies headache(s) and Denies weakness Eyes: Eyes: Reports no additional eye complaints and Denies change in vision ENT: Reports system reviewed and no additional complaints, except as documented, Denies dizziness, Denies headache(s), Denies nasal congestion, Denies nasal discharge and Denies neck pain Cardiovascular: Cardiovascular: Reports no additional cardiovascular complaints, Denies chest pain, Denies leg edema and Denies dyspnea Respiratory: Respiratory: Reports no additional respiratory complaints, Denies cough and Denies dyspnea Gastrointestinal: Gastrointestinal: Reports no additional gastrointestinal complaints, Denies abdominal pain, Denies diarrhea, Denies nausea and Denies vomiting Genitourinary: Genitourinary: Denies urinary incontinence Musculoskeletal: Musculoskeletal: Reports no additional musculoskeletal complaints, Denies back pain, Denies arthralgias, Denies joint swelling, Denies neck pain, Denies numbness and Denies tingling Integumentary/Breasts: Skin/Breast: Reports system reviewed and no additional complaints, except as docu and Denies rash Neurologic: Reports system reviewed and no additional complaints, except as documented, Denies Abnormal speech present, Denies dizziness, Denies headache(s), Denies numbness, Denies tingling and Denies weakness Psychiatric: Psychiatric: Denies anxiety, Denies depression, Denies homicidal ideation and Denies suicidal ideation [facility] Past Medical History Attestation statement: The following information was validated with the patient. Source: old records reviewed and nursing notes reviewed Medical History Constipation Mental health disorder Social History Social History Household Members: Other Household Members Other:: lives in [employer] [facility] with 3 other patients Housing: House Do you presently have visiting nurse or other home services: Yes ([facility] [employer]) Alcohol intake: current Alcohol intake frequency: a few times a week Patient Tobacco Use Status: Former Tobacco user Quit Date: 06/2020 Tobacco use type: Cigarette Cigarette Packs Per Day: 1 Cigarettes Per Day: 20.0 Years Smoked: 12 Smoked in Last 30 Days: No Second Hand Smoke Exposure: No Use of substances other than those prescribed or required for medical reasons: No Advance Directives: No Advance Directives Information Provided: Yes Healthcare Proxy: No Guardian: No service: No Sexual orientation: Did not discuss. Physical Exam Vital Signs: Vital Signs: Last Vital Signs Temp 98 F 12/31/22 10:35 Pulse 90 12/31/22 10:35 Resp 18 12/31/22 10:35 BP 118/80 12/31/22 10:35 Pulse Ox 95 12/31/22 10:35 O2 Del Method Room Air 12/31/22 10:35 BMI result Body Mass Index 30.4 Const: General: cooperative, healthy appearing, comfortable and no acute distress Orientation/consciousness: patient oriented x3 Limitations: no limitations HEENT: Head: Yes normal to inspection Ears: hearing grossly normal bilaterally General nose exam: Normal external nose present Face and s inus: Yes normal facial exam Mouth: Normal oral and palatal mucosa present Throat: Yes posterior oropharynx normal Eyes: General: appearance normal, both eyes and all related structures Pupils: Equal, round and reactive pupils present Neck: Neck: Yes normal visual inspection Chest: Chest palpation & inspection: normal inspection of the chest Resp: Effort & Inspection: normal respiratory effort Auscultation: clear to auscultation bilaterally Cardio: Rate: regular rate Rhythm: regular rhythm Peripheral pulses: Peripheral pulses 2+ throughout GI: Inspection: Yes normal to inspection Palpation (GI): Soft to palpation and nontender Auscultation: normal bowel sounds Back/Spine/Pelvis: Thoracic/Lumbar Spine: thoracic and lumbar spine normal to inspection Skin: General skin exam: no rashes or lesions noted Neuro: General: patient oriented x3, no focal motor deficits and normal sens ation to monofilament Cranial nerves: Yes Equal, round and reactive pupils present Cognition (Neuro): normal cognition Speech: No Abnormal speech present Gait exam (Neuro): Normal gait present Motor exam (neuro): 5/5 motor strength present throughout Extrem: General: Yes normal to inspection Course Course Course Narrative: 9661- Met with care team who recommends [facility] follow-up in the morning. Placed in physician observation pending disposition. Medical Decision Making Medical Decision Making [facility] Narrative: 32-year-old male here after getting into a verbal altercation with another [employer] resident. Will need crisis consultation No concern for acute ingestion or trauma Labs and drug screen ordered Differential Diagnosis Differential Diagnoses: The differential diagnosis associated with the presentation includes Adjustment disorder Consult Healthcare Provider Management of the patient was discussed with: [employer] Director Patient met with care team Robyn-plan for WILBERT follow-up in the morning Lab Data [facility] Lab Attestation statement: I reviewed the patient's lab results. I reviewed the labs which are unremarkable 12/31/22 11:41 12/31/22 11:41 Labs: Lab Results 12/31/22 12/31/22 12/31/22 Range/Units 11:41 11:41 11:41 WBC 5.2 (4.8-10.8) X10*3/uL RBC 4.39 L (4.60-5.80) X10*6/uL Hgb 14.5 (14.0-18.0) g/dl Hct 41.3 L (42.0-52.0) % MCV 94.1 (80.0-98.0) fL MCH 33.0 (27.0-33.0) pg MCHC 35.1 (31.0-36.0) g/dl RDW 11.4 (11.0-16.0) % Plt Count 148 L (160-400) X10*3/uL MPV 9.0 L (9.4-12.4) fL Immature Gran % (Auto) 0.8 H (0.0-0.4) % Neut % (Auto) 44.0 L (45-73) % Lymph % (Auto) 38.3 (20-40) % Cotton % (Auto) 14.2 H (2-11) % Eos % (Auto) 2.1 (0-4) % Baso % (Auto) 0.6 (0-2) % Lymph # (Auto) 2.0 (1.2-4.9) X10*3/uL Cotton # (Auto) 0.7 (0.1-1.2) X10*3/uL Eos # (Auto) 0.1 (0.0-0.4) X10*3/uL Baso # (Auto) 0.0 (0.0-0.2) X10*3/uL Abs Immat Gran (auto) 0.04 H (0.00-0.03) X10*3/uL Absolute Neuts (auto) 2.3 (2.0-8.3) x10*3/uL Absolute Nucleated RBC 0.000 (0.0-0.012) X10*3/uL Nucleated RBC % (auto) 0.0 (0.0-0.2) /100WBC Sodium 140 (135-145) mmol/L Potassium 4.4 (3.3-5.1) mmol/L Chloride 107 (96-108) mmol/L Carbon Dioxide 20 L (22-29) mmol/L Anion Gap 17 (12-20) BUN 16 (9-16) mg/dL Creatinine 1.03 (0.5-1.4) mg/dL Estim Creat Clear Calc 113.6 Estimated GFR > 60 Random Glucose 94 (60-115) mg/dL Calcium 9.5 (8.4-10.2) mg/dL Total Bilirubin 0.7 (0.0-1.0) mg/dL AST 34 (5-37) U/L ALT 36 (0-40) U/L Alkaline Phosphatase 79 (39-117) U/L Total Protein 7.6 (6.5-8.0) g/dL Albumin 4.3 (3.5-5.0) g/dL Urine Color Urine Appearance Urine pH (5.0-9.0) Ur Specific Stone[place] (1.005-1.025) Urine Protein (Neg-Trace) mg/dL Urine Glucose (UA) (Negative) mg/dL Urine Ketones (Negative) mg/dL Urine Blood (Negative) Urine Nitrite (Negative) Ur Leukocyte Esterase (Negative) Salicylates < 5.0 L (15-30) mg/dL Urine Opiates Screen (Not Detect) Urine Fentanyl Screen (Not Detect) Acetaminophen < 17 (<30) mcg/mL Ur Barbiturates Screen (Not Detect) Ur Phencyclidine Scrn (Not Detect) Ur Amphetamines Screen (Not Detect) U Benzodiazepines Scrn (Not Detect) Urine Cocaine Screen (Not Detect) U Marijuana (THC) Screen (Not Detect) 12/31/22 12/31/22 Range/Units 11:41 11:41 WBC (4.8-10.8) X10*3/uL RBC (4.60-5.80) X10*6/uL Hgb (14.0-18.0) g/dl Hct (42.0-52.0) % MCV (80.0-98.0) fL MCH (27.0-33.0) pg MCHC (31.0-36.0) g/dl RDW (11.0-16.0) % Plt Count (160-400) X10*3/uL MPV (9.4-12.4) fL Immature Gran % (Auto) (0.0-0.4) % Neut % (Auto) (45-73) % Lymph % (Auto) (20-40) % Cotton % (Auto) (2-11) % Eos % (Auto) (0-4) % Baso % (Auto) (0-2) % Lymph # (Auto) (1.2-4.9) X10*3/uL Cotton # (Auto) (0.1-1.2) X10*3/uL Eos # (Auto) (0.0-0.4) X10*3/uL Baso # (Auto) (0.0-0.2) X10*3/uL Abs Immat Gran (auto) (0.00-0.03) X10*3/uL Absolute Neuts (auto) (2.0-8.3) x10*3/uL Absolute Nucleated RBC (0.0-0.012) X10*3/uL Nucleated RBC % (auto) (0.0-0.2) /100WBC Sodium (135-145) mmol/L Potassium (3.3-5.1) mmol/L Chloride (96-108) mmol/L Carbon Dioxide (22-29) mmol/L Anion Gap (12-20) BUN (9-16) mg/dL Creatinine (0.5-1.4) mg/dL Estim Creat Clear Calc Estimated GFR Random Glucose (60-115) mg/dL Calcium (8.4-10.2) mg/dL Total Bilirubin (0.0-1.0) mg/dL AST (5-37) U/L ALT (0-40) U/L Alkaline Phosphatase (39-117) U/L Total Protein (6.5-8.0) g/dL Albumin (3.5-5.0) g/dL Urine Color Dark Yellow Urine Appearance Clear Urine pH 7.0 (5.0-9.0) Ur Specific [place] 1.025 (1.005-1.025) Urine Protein Trace (Neg-Trace) mg/dL Urine Glucose (UA) Negative (Negative) mg/dL Urine Ketones Trace (Negative) mg/dL Urine Blood Negative (Negative) Urine Nitrite Negative (Negative) Ur Leukocyte Esterase Negative (Negative) Salicylates (15-30) mg/dL Urine Opiates Screen Not Detected (Not Detect) Urine Fentanyl Screen Not Detected (Not Detect) Acetaminophen (<30) mcg/mL Ur Barbiturates Screen Not Detected (Not Detect) Ur Phencyclidine Scrn Not Detected (Not Detect) Ur Amphetamines Screen Not Detected (Not Detect) U Benzodiazepines Scrn Not Detected (Not Detect) Urine Cocaine Screen Not Detected (Not Detect) U Marijuana (THC) Screen Not Detected (Not Detect) Discharge Plan Discharge Clinical Impression: Mood disorder Patient Disposition: Still a Patient Prescriptions: No Action ibuprofen 600 mg tablet 600 mg PO Q6H PRN (Reason: fever or pain) 30 Days Qty: 30 0RF loratadine [Claritin] 10 mg tablet 10 mg PO DAILY Rx Instructions: Every AM lorazepam [Ativan] 1 mg Tablet 1 mg PO DAILY sennosides-docusate sodium [Senna with Docusate Sodium] 8.6-50 mg Tablet 2 tab-cap PO BEDTIME fluoxetine [Prozac] 40 mg capsule 40 mg PO DAILY quetiapine 300 mg tablet 300 mg PO BID divalproex 500 mg tablet,delayed release (DR/EC) 1,500 mg PO BEDTIME propranolol 20 mg tablet 80 mg PO DAILY Protocol: Hold for SBP/HR < HOLD for SBP < : 90 HOLD for HR < : 60 polyethylene glycol 3350 [Miralax] 17 gram Powder In Packet 17 g PO DAILY PRN (Reason: Constipation) desmopressin 0.2 mg Tablet 0.2 mg PO BEDTIME hydroxyzine pamoate 50 mg capsule 50 mg PO Q6H PRN (Reason: Anxiety) olanzapine 10 mg tablet 10 mg PO BID pantoprazole 20 mg tablet,delayed release (DR/EC) 20 mg PO DAILY@0630 omega 4-dcs-ndi-fish oil 300-1,000 mg capsule 1 cap PO BID Linzess 290 mcg capsule 290 mcg PO DAILY melatonin 10 mg capsule 10 mg PO BEDTIME Interventions: Will-Suicide Risk Severity Scale Last Done: 12/31/22 12:55
[2022-12-31 13:06] LABS: Acetaminophen LAB < 17 mcg/mL (<30)
--- NOTE | 2022-12-31 14:32 | PC.NURSE ---
Will call [facility] to see if they can fax over an up to date med list.
--- NOTE | 2022-12-31 14:33 | PC.NURSE ---
Med list faxed to pharmacy and copy put in chart.
--- NOTE | 2022-12-31 14:56 | PHA.MEDREC ---
Pharmacy Consult ? Medication Reconciliation Pharmacy has completed the medication reconciliation. Med rec done using list provided by [facility].
--- NOTE | 2022-12-31 15:23 | PC.NURSE ---
Pt noted to have increased verbal aggression, spoke with staff and eventually calmed.
[2022-12-31] MEDS: OLANZapine 10 MG TABLET PO (15:46)
[2022-12-31] MEDS: LORazepam 1 MG TABLET 2 MG PO (17:09)
--- NOTE | 2022-12-31 17:27 | PC.NURSE ---
Pt had verbal outburst, difficult to redirect, multiple attempts noted, PRN administered by mouth.
[2023-01-01] VITALS (8 sets, daily range): BP systolic 114–141; BP diastolic 64–81; PULSE 63–74; RESP 12–18; TEMP 36.5; O2SAT 92–96
--- NOTE | 2023-01-01 05:31 | PC.NURSE ---
Patient slept through whole evening and night, no distress observed/reported, med rec completed/pending provider's approval, behavior non concerning, patient was assessed by care team, disposition pending with possibility of discharge back to half-way, VSS, will continue to monitor.
--- NOTE | 2023-01-01 08:21 | MHC.CARE ---
CARE Team spoke with Perla, plan for Pt to be picked up at 11am
--- NOTE | 2023-01-01 08:41 | PC.NURSE ---
care team made pt aware that he will be d/c'd home this am.
[2023-01-01] MEDS: QUEtiapine Fumarate 300 MG TABLET PO (09:14)
[2023-01-01] MEDS: Docusate Sodium 100 MG CAPSULE PO (09:14)
[2023-01-01] MEDS: Divalproex Sodium 500 MG TABLET.DR 1000 MG PO (09:14)
[2023-01-01] MEDS: Propranolol HCL LA 80 MG CAP.SA.24H PO (09:15)
[2023-01-01] MEDS: OLANZapine 10 MG TABLET PO (09:15)
[2023-01-01] MEDS: hydrOXYzine HCL 50 MG TABLET PO (09:15)
[2023-01-01] MEDS: FLUoxetine HCl 20 MG CAPSULE 40 MG PO (09:15)
[2023-01-01] MEDS: LORazepam 1 MG TABLET PO (09:15)
[2023-01-01] MEDS: Loratadine 10 MG TABLET PO (09:16)
[2023-01-01] MEDS: polyethylene glycoL 3350 17 GM POWD.PACK PO (09:19)
--- NOTE | 2023-01-01 09:27 | PC.NURSE ---
pt c/o anxiety of going back to his care home. pt refused his meds at this, this rn approach pt again at another time.
--- NOTE | 2023-01-01 10:06 | PC.NURSE ---
pt stated that he is hearing voices not to take his meds. pt finally agreed with the help/encouragement of the care team staff (dariel) and took all his meds.
--- NOTE | 2023-01-01 10:16 | MHC.CARE ---
CARE Team spoke with long term staff, Perla and Pt will be picked up for 11am.
--- NOTE | 2023-01-01 10:32 | PC.NURSE ---
pt approached the rn station wrote the words fuck you on his hand and states that it applies to all of us (this rn and a female [facility]) in the rn station. pt then came of his room and threw a marker into the rn station. pt then went into his room (rm 4) and slammed the door. security was called along with the care team and md notified. pt was verbally redirected and some calmness was restored. will continue to monitor. pt is aware that is to be d/c'd home so he is anxious and upset. pt was med earlier for anxiety. pt was also seen by the md after his escalation. pt tore his [facility] name aiden off and threw it at this rn who was in the rn station.
--- NOTE | 2023-01-01 10:40 | PC.NURSE ---
PT IS OVERTURNING THE EXTREMELY HEAVY CARS IN THE COMMON AREA. PT IS BELLIGERENT AND IS MAKING INCORRECTION ACCUSATIONS AND CURSING AT STAFF.
--- NOTE | 2023-01-01 10:56 | PC.NURSE ---
PT IS BEING RESTRAINT BY SECURITY WITH THE HELP OF [facility]. PT WAS REDIRECTED TO HIS ROOM AND IS CALLING THE STAFF FELIPA MULLER AND MARCELLOTTING ON PT.
[2023-01-01] MEDS: diphenhydrAMINE HCL 50 MG/ML VIAL IM (11:00)
[2023-01-01] MEDS: Haloperidol Lactate 5 MG/ML VIAL 10 MG IM (11:00)
[2023-01-01] MEDS: LORazepam 2 MG/ML VIAL IM (11:00)
--- NOTE | 2023-01-01 11:50 | PC.NURSE ---
PT IS OUT OF RESTRAINT AND IS VERY CALM/CO-OP AT THIS TIME.
--- NOTE | 2023-01-01 13:59 | MHC.CARE ---
Case reviewed with Mckenna Niño NP , discharge plan to return to his 24 hour staffed long term remains.
== END 2023-01-01 14:06 | disposition home or self-care (01) ==
PROVIDERS: Emergency Provider Emergency Medicine Emergency Medical Services; PCP Internal Medicine
DX: F63.81 Intermittent explosive disorder (principal); F79 Unspecified intellectual disabilities; F39 Unspecified mood [affective] disorder; F17.210 Nicotine dependence, cigarettes, uncomplicated; Z71.6 Tobacco abuse counseling; Z79.899 Other long term (current) drug therapy
CPT/HCPCS: 36415; 80053; 80143; 80179; 80307; 81003; 85025; 96372; 99285; J1200; J2060; S9485

== ENCOUNTER 2023-01-02 15:59 | Emergency (ER) | payer OTHER, SELFPAY ==
[2023-01-02 16:13] VITALS: BP 911/911; PULSE 911; RESP 911; O2SAT 911; BMI 30.4
[2023-01-02] MEDS: OLANZapine 10 MG TABLET PO ×2 (16:32→19:50)
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
[2023-01-02 17:06] VITALS: BP 112/83; PULSE 96; TEMP 36.8; O2SAT 93
[2023-01-02 17:25] LABS: MANUAL DIFF FLAG NO
[2023-01-02 17:29] LABS: Basophils Percent Auto 0.5 % (0-2); Eosinophils Absolute Auto 0.1 X10*3/uL (0.0-0.4); Eosinophils Percent Auto 1.2 % (0-4); Hematocrit 42.6 % (42.0-52.0); Hemoglobin 14.9 g/dl (14.0-18.0); Imm Gran Abs Auto 0.04 X10*3/uL (0.00-0.03); Imm Gran Pct Auto 0.5 % (0.0-0.4); Lymphocytes Absolute Auto 2.2 X10*3/uL (1.2-4.9); Lymphocytes Percent Auto 26.7 % (20-40); Mean Corpuscular Volume 94.5 fL (80.0-98.0); Mean Platelet Volume 9.2 fL (9.4-12.4); Monocytes Absolute Auto 1.1 X10*3/uL (0.1-1.2); Monocytes Percent Auto 12.7 % (2-11); Neutrophils Absolute Auto 4.9 x10*3/uL (2.0-8.3); Neutrophils Percent Auto 58.4 % (45-73); Platelet Count 171 X10*3/uL (160-400); Red Blood Count 4.51 X10*6/uL (4.60-5.80); Red Cell Distribution Width 11.4 % (11.0-16.0); White Blood Count 8.3 X10*3/uL (4.8-10.8)
[2023-01-02 17:31] LABS: Appearance Urine Clear; Color Urine Dark Yellow; Glucose Urine UA Negative (Negative); Leukocyte Esterase Urine Negative (Negative); Nitrite Urine Negative (Negative); PH 5.5 (5.0-9.0); Urine Blood Negative (Negative); Urine Ketones Trace mg/dL (Negative); Urine Protein Negative (Neg-Trace)
[2023-01-02 17:36] LABS: Bacteria Urine None Seen (None Seen); Hyaline Casts Urine 0-2 /LPF (0-2); RBC Urine 0-2 /HPF (0-2); Squamous Epithelial Cell Urine 0-2 /HPF (0-2); WBC Urine 0-5 /HPF (0-5)
[2023-01-02 17:43] LABS: Amphetamine Screen Urine Not Detected (Not Detect); Barbiturates, Urine Not Detected (Not Detect); Benzodiazepines Screen Urine Not Detected (Not Detect); Cannabinoid Screen Urine Not Detected (Not Detect); Cocaine Screen Urine Not Detected (Not Detect); Fentanyl, urine Not Detected (Not Detect); Opiate Screen Urine Not Detected (Not Detect); Phencyclidine Screen Urine Not Detected (Not Detect)
[2023-01-02 17:59] LABS: Alanine Aminotransferase 38 U/L (0-40); Albumin Level 4.5 g/dL (3.5-5.0); Alkaline Phosphatase 84 U/L (39-117); Anion Gap 19 (12-20); Aspartate Amino Transferase 47 U/L (5-37); Bilirubin Total 0.8 mg/dL (0.0-1.0); Blood Urea Nitrogen 20 mg/dL (9-16); Calcium 9.8 mg/dL (8.4-10.2); Carbon Dioxide 21 mmol/L (22-29); Chloride 101 mmol/L (96-108); Creatinine Clr Calc Pharmacy 103.5; Estimated Glomerular Filt Rate > 60; Ethanol < 10 mg/dL; Glucose Random 95 mg/dL (60-115); Potassium 4.4 mmol/L (3.3-5.1); Sodium 137 mmol/L (135-145); Total Protein 8.1 g/dL (6.5-8.0)
[2023-01-02 18:27] LABS: Valproate 26.5 mcg/mL (50.0-100.0)
[2023-01-02 19:48] VITALS: BP 118/82; PULSE 82; RESP 17; TEMP 36.7; O2SAT 95
[2023-01-02] MEDS: Sennosides/Docusate Sodium TABLET 2 TAB PO (19:49)
[2023-01-02] MEDS: Divalproex Sodium 500 MG TABLET.DR 1000 MG PO (19:50)
[2023-01-02] MEDS: hydrOXYzine HCL 50 MG TABLET PO (19:50)
[2023-01-02] MEDS: Desmopressin Acetate 0.2 MG TABLET PO (19:50)
[2023-01-02] MEDS: QUEtiapine Fumarate 300 MG TABLET PO (19:50)
[2023-01-02] MEDS: Melatonin 3 MG TABLET 9 MG PO (19:50)
--- NOTE | 2023-01-03 05:43 | PC.NURSE ---
Patient slept through the night, no distress observed/reported, behavior non concerning but unpredictable, disposition per care team WILBERT follow up with possibility of respite, medication compliant, VSS, will continue to monitor.
[2023-01-03 10:36] VITALS: BP 99/46; PULSE 58
[2023-01-03] MEDS: FLUoxetine HCl 20 MG CAPSULE 40 MG PO (11:12)
[2023-01-03] MEDS: Divalproex Sodium 500 MG TABLET.DR 1000 MG PO ×2 (11:13→20:29)
[2023-01-03] MEDS: OLANZapine 10 MG TABLET PO ×2 (11:14→20:29)
--- NOTE | 2023-01-03 11:25 | PC.NURSE ---
Pt woke around 11am. Quiet, calm and cooperative. Ate cereal for breakfast, remains sleepy.
[2023-01-03] MEDS: hydrOXYzine HCL 50 MG TABLET PO (12:49)
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
[2023-01-03 17:51] VITALS: BP 122/76; PULSE 86; RESP 20; TEMP 36.2; O2SAT 96
[2023-01-03] MEDS: Melatonin 3 MG TABLET 9 MG PO (20:29)
[2023-01-03] MEDS: QUEtiapine Fumarate 300 MG TABLET PO (20:29)
[2023-01-03] MEDS: Desmopressin Acetate 0.2 MG TABLET PO (20:29)
[2023-01-03] MEDS: Sennosides/Docusate Sodium TABLET 2 TAB PO (20:29)
[2023-01-04] MEDS: FLUoxetine HCl 20 MG CAPSULE 40 MG PO (07:39)
[2023-01-04] MEDS: hydrOXYzine HCL 50 MG TABLET PO (07:40)
[2023-01-04] MEDS: OLANZapine 10 MG TABLET PO ×2 (07:40→19:33)
[2023-01-04] MEDS: Divalproex Sodium 500 MG TABLET.DR 1000 MG PO ×2 (07:40→19:33)
[2023-01-04] MEDS: QUEtiapine Fumarate 300 MG TABLET PO ×2 (08:33→19:36)
--- NOTE | 2023-01-04 09:38 | MHC.CARE ---
CARE Team checked in with Pt who is aware he will return to [facility].
--- NOTE | 2023-01-04 10:05 | MHC.CARE ---
CARE Team spoke with [facility] mangharry Duncan, who is aware Pt was not found [facility]. Plan for [facility] and his providers to have meeting prior to d/c today. Perla will update CARE Team with ETA.
[2023-01-04 10:09] VITALS: BP 136/89; PULSE 110; RESP 16; TEMP 36.4; O2SAT 97
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
--- NOTE | 2023-01-04 15:30 | MHC.CARE ---
CARE Team received a call from Zita ([phone] office; [phone] personal cell) from the pt's shelter. She stated that the team just had a meeting and they are refusing to take the pt back until the CARE Team calls the pt's OP psychiatrist Dr. Rodriguez and asks him to increase the pt's depakote due to his levels being low. CARE Team consulted with Savanna Domínguez [facility] who suggested to have TANI Andres see the pt and clear him to return to the shelter. CARE Team consulted with TANI Andres who stated that she would see the pt tomorrow 01/05/23 and re-draw his labs to check his levels again. Pt will stay the night and see the psychiatrist TANI Andres in the morning.
--- NOTE | 2023-01-04 17:29 | PC.NURSE ---
Delonte has been pleasant and coopertive this shift. he has remained present in the milieu and has been interacting with staff and other patients. Appetite is good. Compliant with medications and no behavioral concerns.
[2023-01-04] MEDS: Sennosides/Docusate Sodium TABLET 2 TAB PO (19:32)
[2023-01-04] MEDS: Melatonin 3 MG TABLET 9 MG PO (19:33)
[2023-01-04] MEDS: Desmopressin Acetate 0.2 MG TABLET PO (19:33)
[2023-01-04 19:35] VITALS: BP 120/93; PULSE 112
[2023-01-05 01:28] LABS: TSH reflex Free T4 2.52 uIU/mL (0.32-4.0)
--- NOTE | 2023-01-05 06:12 | PC.NURSE ---
Patient slept through the night, no distress observed/reported, behavior appropriate and in good control, medication compliant, disposition per care team is discharge back halfway pending psych consult, VSS, will continue to monitor.
[2023-01-05 06:16] VITALS: RESP 17
[2023-01-05] MEDS: OLANZapine 10 MG TABLET PO (07:46)
[2023-01-05] MEDS: Divalproex Sodium 500 MG TABLET.DR 1000 MG PO (07:47)
[2023-01-05] MEDS: FLUoxetine HCl 20 MG CAPSULE 40 MG PO (07:47)
[2023-01-05 08:00] VITALS: BP 144/92; PULSE 88; TEMP 36.3; O2SAT 95
[2023-01-05] MEDS: QUEtiapine Fumarate 300 MG TABLET PO (08:15)
[2023-01-05] MEDS: Acetaminophen 325 MG TABLET 975 MG PO (08:22)
--- NOTE | 2023-01-05 10:32 | MHC.CARE ---
CARE Team speaks with pt upon his request. Pt stated that he is ready to return home and feels he has been in and out of hospitals too frequently. Pt stated that he spoke to his Mother and she is in agreement. When asked about his mood, pt stated Super Great . Pt was advised that Melquiades Mckoy will be seeing him today and a final determination will be made.
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
[2023-01-05 12:52] LABS: Valproate 95.7 mcg/mL (50.0-100.0)
--- NOTE | 2023-01-05 13:48 | MHC.CARE ---
vice president & general manager [employer] [place] Perla called CARE team and reports staff will pick Delonte up at 1700 today 01/05/23.
[2023-01-05] MEDS: Propranolol HCL LA 80 MG CAP.SA.24H PO (13:52)
--- NOTE | 2023-01-05 16:38 | MHC.CARE ---
Health Care Provider's Evaluation received via email, signed by psychiatric provider Mckenna Mckoy NP and returned to Jason Cleary RN
== END 2023-01-05 16:41 | disposition home or self-care (01) ==
PROVIDERS: Nurse Practitioner Family; Social Worker; Emergency Provider Emergency Medicine Emergency Medical Services
DX: F39 Unspecified mood [affective] disorder (principal); F63.81 Intermittent explosive disorder; F79 Unspecified intellectual disabilities; G93.49 Other encephalopathy; Z87.820 Personal history of traumatic brain injury; Z87.891 Personal history of nicotine dependence; Z79.899 Other long term (current) drug therapy
CPT/HCPCS: 36415; 80053; 80164; 80307; 81001; 84443; 85025; 99285; S9485

== ENCOUNTER → 2023-01-02 16:31 | Outpatient (BNV) | payer OTHER, SELFPAY | PROVIDERS: Emergency Provider Emergency Medicine Emergency Medical Services; Visit Provider Social Worker | DX: F63.81 Intermittent explosive disorder (principal); G93.49 Other encephalopathy; S06.9X9A Unspecified intracranial injury with loss of consciousness of unspecified duration, initial encounter; F79 Unspecified intellectual disabilities | CPT/HCPCS: 99285 ==

== ENCOUNTER 2023-03-31 20:02 | Emergency (ER) | payer OTHER, SELFPAY ==
[2023-03-31 20:07] VITALS: BMI 25.1
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
[2023-03-31 21:06] LABS: Appearance Urine Clear; Color Urine Dark Yellow; Glucose Urine UA Negative (Negative); Leukocyte Esterase Urine Trace (Negative); Nitrite Urine Negative (Negative); Specific Gravity - Urine >= 1.030 (1.005-1.025); UMIC TRIGGER UA YES; Urine Blood Negative (Negative); Urine Ketones Trace mg/dL (Negative); Urine Protein 30 (1+) mg/dL (Neg-Trace)
[2023-03-31 21:09] LABS: Bacteria Urine None Seen (None Seen); Hyaline Casts Urine 0-2 /LPF (0-2); RBC Urine 0-2 /HPF (0-2); Squamous Epithelial Cell Urine 0-2 /HPF (0-2); WBC Urine 0-5 /HPF (0-5)
[2023-03-31 21:15] LABS: Valproate 59.9 mcg/mL (50.0-100.0)
[2023-03-31 21:21] VITALS: BP 110/62; PULSE 63; RESP 17; TEMP 36.8; O2SAT 97
[2023-03-31] MEDS: Haloperidol Lactate 5 MG/ML VIAL IM (21:25)
[2023-03-31] MEDS: LORazepam 2 MG/ML VIAL IM (21:25)
[2023-03-31] MEDS: diphenhydrAMINE HCL 50 MG/ML VIAL IM (21:25)
[2023-03-31 21:26] LABS: Alanine Aminotransferase 36 U/L (0-40); Albumin Level 4.3 g/dL (3.5-5.0); Alkaline Phosphatase 83 U/L (39-117); Amphetamine Screen Urine Not Detected (Not Detect); Anion Gap 15 (12-20); Aspartate Amino Transferase 36 U/L (5-37); Barbiturates, Urine Not Detected (Not Detect); Benzodiazepines Screen Urine Not Detected (Not Detect); Bilirubin Total 0.7 mg/dL (0.0-1.0); Blood Urea Nitrogen 18 mg/dL (9-16); Calcium 9.5 mg/dL (8.4-10.2); Cannabinoid Screen Urine Not Detected (Not Detect); Carbon Dioxide 25 mmol/L (22-29); Chloride 104 mmol/L (96-108); Cocaine Screen Urine Not Detected (Not Detect); Creatinine Clr Calc Pharmacy 92.6; Estimated Glomerular Filt Rate > 60; Ethanol < 10 mg/dL; Fentanyl, urine Not Detected (Not Detect); Glucose Random 90 mg/dL (60-115); Opiate Screen Urine Not Detected (Not Detect); Phencyclidine Screen Urine Not Detected (Not Detect); Potassium 3.9 mmol/L (3.3-5.1); Sodium 140 mmol/L (135-145); Total Protein 7.7 g/dL (6.5-8.0)
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
[2023-04-01] VITALS (7 sets, daily range): BP systolic 129; BP diastolic 74; PULSE 71; RESP 16–21; O2SAT 99
--- NOTE | 2023-04-01 07:12 | PC.NURSE ---
patient appears to remain asleep at present respirations are even and unlabored patient appears in no distress
--- NOTE | 2023-04-01 07:46 | PHA.MEDREC ---
Pharmacy Consult ? Medication Reconciliation Pharmacy has completed the medication reconciliation. Reviewed med rec done by nursing
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
[2023-04-01] MEDS: Divalproex Sodium 500 MG TABLET.DR 1000 MG PO (08:06)
[2023-04-01] MEDS: Omeprazole 20 MG CAPSULE.DR PO (08:06)
[2023-04-01] MEDS: OLANZapine 10 MG TABLET PO (08:06)
[2023-04-01] MEDS: Propranolol HCL LA 80 MG CAP.SA.24H PO (08:06)
[2023-04-01] MEDS: LORazepam 1 MG TABLET PO (08:06)
[2023-04-01] MEDS: FLUoxetine HCl 20 MG CAPSULE 40 MG PO (08:06)
[2023-04-01] MEDS: QUEtiapine Fumarate 100 MG TABLET 300 MG PO (11:50)
[2023-04-01] MEDS: Haloperidol Lactate 5 MG/ML VIAL IM (19:45)
[2023-04-01] MEDS: LORazepam 2 MG/ML VIAL IM (19:45)
[2023-04-01] MEDS: diphenhydrAMINE HCL 50 MG/ML VIAL IM (19:45)
--- NOTE | 2023-04-01 20:43 | PC.NURSE ---
Patient got triggered presence of six chief clinical officer, patient always has difficulty in coping with stress, engages in destructive behavior like punching wall, slamming door, threatening staff member, difficult to redirect however patient eventually requested for medication help, provider notified/ordered Ativan 2 mg IM, Haldol 5 mg IM, and Benadryl 50 mg IM per patient's request/administered as ordered @ 1945 with + effect, HS medication were not given due to IM medication patient received, disposition per care team is pending psych consult, VSS, labs completed/resulted, behavior unpredictable and easily triggered, will continue to monitor.
--- NOTE | 2023-04-02 07:12 | PC.NURSE ---
patient appears to remain asleep at present respirations are even and unlabored patient appears in no distress
[2023-04-02] MEDS: QUEtiapine Fumarate 100 MG TABLET 300 MG PO (07:47)
[2023-04-02] MEDS: Divalproex Sodium 500 MG TABLET.DR 1000 MG PO (07:47)
[2023-04-02] MEDS: LORazepam 1 MG TABLET PO (07:48)
[2023-04-02] MEDS: FLUoxetine HCl 20 MG CAPSULE 40 MG PO (07:48)
[2023-04-02] MEDS: OLANZapine 10 MG TABLET PO (07:49)
[2023-04-02] MEDS: Propranolol HCL LA 80 MG CAP.SA.24H PO (07:50)
[2023-04-02 07:56] VITALS: BP 134/80; PULSE 75; RESP 20; TEMP 36.8; O2SAT 97
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
--- NOTE | 2023-04-02 13:58 | MHC.CARE ---
CARE Team left message for Florinda Funez [phone] regarding discharge planning and care coordination.
--- NOTE | 2023-04-02 14:49 | MHC.CARE ---
CARE Team left for Perla DDS respite manger [phone]
--- NOTE | 2023-04-02 15:26 | MHC.CARE ---
CARE Team received call from Perla from [facility] , who is not in agreement with return to detention as yesterday was the worst it has been . She asked t/w to call Leandra from [facility] [phone].
--- NOTE | 2023-04-02 15:39 | MHC.CARE ---
CARE Team spoke with Leandra Leyva Pts DDS clinician at the request of respite manger. T/w spoke with Leandra and relied information that Pt was not found [facility] and recommendation is to [facility] respite program with current providers. Pts behaviors appears to be in the context of frustration with his current placement as Pt was recently at [facility] with no behavioral concerns and upon return to his [facility] Respite program, Pt had an escalation in behaviors resulting in his presentation to [facility] CARE Team reviewed prior recommendations fro guardianship and [place] order regarding community medication management. CARE Team notified CARE Team carol Sanchez.
== END 2023-04-02 18:09 | disposition home or self-care (01) ==
PROVIDERS: Emergency Provider Emergency Medicine
DX: F39 Unspecified mood [affective] disorder (principal); F63.81 Intermittent explosive disorder; F79 Unspecified intellectual disabilities; Z87.820 Personal history of traumatic brain injury; Z87.891 Personal history of nicotine dependence; Z79.899 Other long term (current) drug therapy
CPT/HCPCS: 36415; 80053; 80164; 80307; 81001; 81003; 85025; 96372; 99284; 99285; J1200; J2060; S9485

== ENCOUNTER → 2023-03-31 20:57 | Outpatient (BNV) | payer OTHER, SELFPAY | PROVIDERS: Emergency Provider Emergency Medicine; Visit Provider Social Worker | DX: F63.81 Intermittent explosive disorder (principal); S06.9X9A Unspecified intracranial injury with loss of consciousness of unspecified duration, initial encounter; G93.49 Other encephalopathy; F39 Unspecified mood [affective] disorder | CPT/HCPCS: 99285 ==

== ENCOUNTER 2023-04-23 19:22 | Emergency (ER) | payer OTHER, SELFPAY ==
[2023-04-23 19:37] VITALS: BP 143/85; PULSE 75; RESP 19; O2SAT 97; BMI 25.1
--- NOTE | 2023-04-23 19:57 | ED_ITS ---
HPI - Psych General Chief Complaint: Psychiatric Symptoms Stated Complaint: Si, behavioral and developmental disorders Time Seen by Provider: 04/23/23 19:26 Source: EMS Mode of arrival: EMS Limitations: other (Combative, uncooperative) History of Present Illness HPI Narrative: Patient comes to the emergency room via EMS accompanied by PD. Patient is coming from his nursing home. Today, patient became very agitated, combative, threatening to kill people in the nursing home, no one got physically injured. However, patient did raise his hand as if he was going to punch somebody. Patient was Section 12 by police department prior to arrival. Patient is combative and uncooperative Related Data Home Medications Medication Instructions Recorded Confirmed fluoxetine 40 mg capsule (Prozac) 40 mg PO DAILY 02/07/22 04/23/23 quetiapine 300 mg tablet 300 mg PO BID 02/07/22 04/23/23 sennosides 8.6 mg-docusate sodium 2 tab-cap PO BEDTIME 02/07/22 04/23/23 50 mg tablet (Senna with Docusate Sodium) lorazepam 1 mg tablet (Ativan) 1 mg PO BID 06/26/22 04/23/23 desmopressin 0.2 mg tablet 0.2 mg PO BEDTIME 09/15/22 04/23/23 hydroxyzine pamoate 50 mg capsule 50 mg PO Q6H PRN Anxiety 09/15/22 04/23/23 polyethylene glycol 3350 17 gram 17 g PO DAILY PRN Constipation 09/15/22 04/23/23 oral powder packet (Miralax) melatonin 10 mg capsule 10 mg PO BEDTIME 11/21/22 04/23/23 olanzapine 10 mg tablet 10 mg PO BID 11/21/22 04/23/23 omega 1-ibh-ool-fish oil 300 1 cap PO BID 11/21/22 04/23/23 mg-1,000 mg capsule divalproex 500 mg tablet,delayed 1,000 mg PO BID 12/31/22 04/23/23 release propranolol 80 mg capsule,24 80 mg PO QAM 12/31/22 04/23/23 hr,extended release linaclotide 290 mcg capsule 290 mcg PO DAILY 03/31/23 04/23/23 (Linzess) pantoprazole 20 mg tablet,delayed 20 mg PO DAILY@0630 03/31/23 04/23/23 release ibuprofen 600 mg tablet 600 mg PO Q6H PRN Pain 04/01/23 04/23/23 loratadine 10 mg tablet (Allergy 10 mg PO DAILY 04/01/23 04/23/23 Relief (loratadine)) Allergies Allergy/AdvReac Type Severity Reaction Status Date / Time risperidone [From RISPERDAL] Allergy Unknown MUCLE Verified 01/02/23 17:21 TIGHTNESS Review of Systems 2 Review of Systems: Yes Other [facility] Past Medical History Medical History Mental health disorder Constipation Social History Social History Household Members: Other Household Members Other:: lives in nursing home with 3 other patients Housing: House Do you presently have visiting nurse or other home services: Yes ([facility] nursing home) Alcohol intake: current Alcohol intake frequency: holidays/special occasions only Alcohol type: beer Patient Tobacco Use Status: Former Tobacco user Quit Date: 06/2020 Tobacco use type: Cigarette Cigarette Packs Per Day: 1 Cigarettes Per Day: 20.0 Years Smoked: 12 Second Hand Smoke Exposure: No Substance Use Type: Unknown Advance Directives: No Advance Directives Information Provided: No service: No Sexual orientation: Did not discuss. Physical Exam 2 Vital Signs: Vital Signs: Last Vital Signs Pulse 75 04/23/23 19:37 Resp 17 04/23/23 21:00 BP 143/85 H 04/23/23 19:37 Pulse Ox 97 04/23/23 19:37 O2 Del Method Room Air 04/23/23 19:37 BMI result Body Mass Index 25.1 Const: Other: Appearance: Alert. Combative, agitated Eyes: Pupils equal, round and reactive to light. ENT: Pharynx normal. Neck: Normal inspection. Neck supple. No lymph nodes noted. No crepitus CVS: Normal pulse Respiratory: No respiratory distress. Breath sounds normal. No Wheezing. No rales Abdomen: Soft and nontender. No rigidity. No distention. Skin: Skin warm and dry. Normal skin color. Normal skin turgor. Extremities: No lower extremity edema. No Lacerations. No Rash Neuro: Oriented X 3. No motor deficit. No sensory deficit. Moving all extremities. No slurred speech. CN 2 through 12 grossly intact Psych: Combative, agitated, uncooperative Course Course Course Narrative: -all of patient's labs pending -patient is on a Section 12 sided by police department -care team consult pending -patient's nurse tried deescalating the patient. However, patient kept threatening to punch staff and becoming more agitated. Patient was given 1 dose of IM Benadryl 50 mg, Ativan 2 mg, Haldol 5 mg Medications Administered Discontinued Medications Generic Name Dose Route Start Last Admin Trade Name Paddy PRN Reason Stop Dose Admin Diphenhydramine HCl 50 mg 04/23/23 19:55 04/23/23 20:00 Diphenhydramine Hcl 50 Mg/Ml Vial IM 04/23/23 19:56 50 mg ONCE ONE Administration Haloperidol Lactate 5 mg 04/23/23 19:55 04/23/23 20:00 Haloperidol Lactate 5 Mg/Ml Vial IM 04/23/23 19:56 5 mg ONCE ONE Administration Ibuprofen 600 mg 04/23/23 20:38 04/23/23 20:40 Ibuprofen 600 Mg Tablet PO 04/23/23 20:39 600 mg ONCE ONE Administration Lorazepam 2 mg 04/23/23 19:55 04/23/23 20:00 Lorazepam 2 Mg/Ml Vial IM 04/23/23 19:56 2 mg STAT STA Administration Medical Decision Making Medical Decision Making [facility] Narrative: -my interpretation of labs: Hematology and chemistry at baseline, urinalysis and toxicology negative -care team evaluated the patient: Plan will be to follow up with the care team in the morning. Patient wants to go inpatient. However, care team does not feel that this will be indicated Differential Diagnosis Differential Diagnoses: The differential diagnosis associated with the presentation includes (Aggression, anxiety, psychosis) Admission/Observation Consideration of admission/observation: Escalation of care including admission/observation considered (Patient is on a Section 12, waiting for care team, patient will remain under observation until disposition is determined by the care team) Lab Data 04/23/23 21:15 04/23/23 21:15 Labs: Lab Results 04/23/23 04/23/23 Range/Units 21:09 21:15 WBC 5.8 (4.8-10.8) X10*3/uL RBC 4.19 L (4.60-5.80) X10*6/uL Hgb 13.9 L (14.0-18.0) g/dl Hct 38.9 L (42.0-52.0) % MCV 92.8 (80.0-98.0) fL MCH 33.2 H (27.0-33.0) pg MCHC 35.7 (31.0-36.0) g/dl RDW 11.1 (11.0-16.0) % Plt Count 153 L (160-400) X10*3/uL MPV 9.1 L (9.4-12.4) fL Immature Gran % (Auto) 0.7 H (0.0-0.4) % Neut % (Auto) 36.6 L (45-73) % Lymph % (Auto) 49.0 H (20-40) % [place] % (Auto) 11.9 H (2-11) % Eos % (Auto) 1.5 (0-4) % Baso % (Auto) 0.3 (0-2) % Lymph # (Auto) 2.9 (1.2-4.9) X10*3/uL [place] # (Auto) 0.7 (0.1-1.2) X10*3/uL Eos # (Auto) 0.1 (0.0-0.4) X10*3/uL Baso # (Auto) 0.0 (0.0-0.2) X10*3/uL Abs Immat Gran (auto) 0.04 H (0.00-0.03) X10*3/uL Absolute Neuts (auto) 2.1 (2.0-8.3) x10*3/uL Absolute Nucleated RBC 0.000 (0.0-0.012) X10*3/uL Nucleated RBC % (auto) 0.0 (0.0-0.2) /100WBC Sodium 140 (135-145) mmol/L Potassium 4.0 (3.3-5.1) mmol/L Chloride 104 (96-108) mmol/L Carbon Dioxide 26 (22-29) mmol/L Anion Gap 14 (12-20) BUN 13 (9-16) mg/dL Creatinine 1.09 (0.5-1.4) mg/dL Estim Creat Clear Calc 91.8 Estimated GFR > 60 Random Glucose 94 (60-115) mg/dL Calcium 9.4 (8.4-10.2) mg/dL Total Bilirubin 0.7 (0.0-1.0) mg/dL AST 31 (5-37) U/L ALT 25 (0-40) U/L Alkaline Phosphatase 87 (39-117) U/L Total Protein 7.9 (6.5-8.0) g/dL Albumin 4.4 (3.5-5.0) g/dL Urine Color Yellow Urine Appearance Clear Urine pH 7.0 (5.0-9.0) Ur Specific [place] 1.020 (1.005-1.025) Urine Protein Negative (Neg-Trace) mg/dL Urine Glucose (UA) Negative (Negative) mg/dL Urine Ketones Negative (Negative) mg/dL Urine Blood Negative (Negative) Urine Nitrite Negative (Negative) Ur Leukocyte Esterase Negative (Negative) Urine Opiates Screen Not Detected (Not Detect) Urine Fentanyl Screen Not Detected (Not Detect) Ur Barbiturates Screen Not Detected (Not Detect) Valproic Acid 60.4 (50.0-100.0) mcg/mL Ur Phencyclidine Scrn Not Detected (Not Detect) Ur Amphetamines Screen Not Detected (Not Detect) U Benzodiazepines Scrn Not Detected (Not Detect) Urine Cocaine Screen Not Detected (Not Detect) U Marijuana (THC) Screen Not Detected (Not Detect) Ethyl Alcohol 11 mg/dL Discharge Plan Discharge Clinical Impression: Intermittent explosive disorder Patient Disposition: Still a Patient Prescriptions: No Action lorazepam [Ativan] 1 mg Tablet 1 mg PO BID sennosides-docusate sodium [Senna with Docusate Sodium] 8.6-50 mg Tablet 2 tab-cap PO BEDTIME fluoxetine [Prozac] 40 mg capsule 40 mg PO DAILY quetiapine 300 mg tablet 300 mg PO BID polyethylene glycol 3350 [Miralax] 17 gram Powder In Packet 17 g PO DAILY PRN (Reason: Constipation) Rx Instructions: IF NO BM IN 2 DAYS desmopressin 0.2 mg Tablet 0.2 mg PO BEDTIME hydroxyzine pamoate 50 mg capsule 50 mg PO Q6H PRN (Reason: Anxiety) olanzapine 10 mg tablet 10 mg PO BID omega 1-nox-kbv-fish oil 300-1,000 mg capsule 1 cap PO BID melatonin 10 mg capsule 10 mg PO BEDTIME Linzess 290 mcg capsule 290 mcg PO DAILY pantoprazole 20 mg tablet,delayed release (DR/EC) 20 mg PO DAILY@0630 ibuprofen 600 mg tablet 600 mg PO Q6H PRN (Reason: Pain) loratadine [Allergy Relief (loratadine)] 10 mg tablet 10 mg PO DAILY divalproex 500 mg Tablet,Delayed Release (Dr/Ec) 1,000 mg PO BID propranolol 80 mg capsule,extended release 24hr 80 mg PO QAM Interventions: [place]-Suicide Risk Severity Scale Last Done: 04/23/23 21:38
[2023-04-23 20:00] VITALS: RESP 19
[2023-04-23] MEDS: LORazepam 2 MG/ML VIAL IM (20:00)
[2023-04-23] MEDS: diphenhydrAMINE HCL 50 MG/ML VIAL IM (20:00)
[2023-04-23] MEDS: Haloperidol Lactate 5 MG/ML VIAL IM (20:00)
[2023-04-23 20:15] VITALS: RESP 19
[2023-04-23 20:30] VITALS: RESP 18
[2023-04-23] MEDS: Ibuprofen 600 MG TABLET PO (20:40)
[2023-04-23 20:45] VITALS: RESP 18
[2023-04-23 21:00] VITALS: RESP 17
[2023-04-23 21:20] LABS: MANUAL DIFF FLAG NO
[2023-04-23 21:21] LABS: Basophils Percent Auto 0.3 % (0-2); Eosinophils Absolute Auto 0.1 X10*3/uL (0.0-0.4); Eosinophils Percent Auto 1.5 % (0-4); Hematocrit 38.9 % (42.0-52.0); Hemoglobin 13.9 g/dl (14.0-18.0); Imm Gran Abs Auto 0.04 X10*3/uL (0.00-0.03); Imm Gran Pct Auto 0.7 % (0.0-0.4); Lymphocytes Absolute Auto 2.9 X10*3/uL (1.2-4.9); Mean Corpuscular HGB Conc 35.7 g/dl (31.0-36.0); Mean Corpuscular Hemoglobin 33.2 pg (27.0-33.0); Mean Corpuscular Volume 92.8 fL (80.0-98.0); Mean Platelet Volume 9.1 fL (9.4-12.4); Monocytes Absolute Auto 0.7 X10*3/uL (0.1-1.2); Monocytes Percent Auto 11.9 % (2-11); Neutrophils Absolute Auto 2.1 x10*3/uL (2.0-8.3); Neutrophils Percent Auto 36.6 % (45-73); Platelet Count 153 X10*3/uL (160-400); Red Blood Count 4.19 X10*6/uL (4.60-5.80); Red Cell Distribution Width 11.1 % (11.0-16.0); White Blood Count 5.8 X10*3/uL (4.8-10.8)
[2023-04-23 21:23] LABS: Appearance Urine Clear; Color Urine Yellow; Glucose Urine UA Negative (Negative); Leukocyte Esterase Urine Negative (Negative); Nitrite Urine Negative (Negative); Urine Blood Negative (Negative); Urine Ketones Negative (Negative); Urine Protein Negative (Neg-Trace)
[2023-04-23 21:30] LABS: Amphetamine Screen Urine Not Detected (Not Detect); Barbiturates, Urine Not Detected (Not Detect); Benzodiazepines Screen Urine Not Detected (Not Detect); Cannabinoid Screen Urine Not Detected (Not Detect); Cocaine Screen Urine Not Detected (Not Detect); Fentanyl, urine Not Detected (Not Detect); Opiate Screen Urine Not Detected (Not Detect); Phencyclidine Screen Urine Not Detected (Not Detect)
[2023-04-23 21:36] LABS: Valproate 60.4 mcg/mL (50.0-100.0)
[2023-04-23 21:38] LABS: Alanine Aminotransferase 25 U/L (0-40); Albumin Level 4.4 g/dL (3.5-5.0); Alkaline Phosphatase 87 U/L (39-117); Anion Gap 14 (12-20); Aspartate Amino Transferase 31 U/L (5-37); Bilirubin Total 0.7 mg/dL (0.0-1.0); Blood Urea Nitrogen 13 mg/dL (9-16); Calcium 9.4 mg/dL (8.4-10.2); Carbon Dioxide 26 mmol/L (22-29); Chloride 104 mmol/L (96-108); Creatinine Clr Calc Pharmacy 91.8; Estimated Glomerular Filt Rate > 60; Ethanol 11 mg/dL; Glucose Random 94 mg/dL (60-115); Sodium 140 mmol/L (135-145); Total Protein 7.9 g/dL (6.5-8.0)
--- NOTE | 2023-04-23 21:42 | PC.NURSE ---
Patient was grossly agitated at the time arrival to ED POD, verbally abusive, threatening staff member, making fist at staff member, non compliant with redirection, multiple attempts were made to deescalate the patient but failed, patient's behavior was observed further escalating, provider notified/ordered ativan 2 mg IM, Haldol 5 mg IM, and Benadryl 50 mg IM/administered as ordered at 1999 with + effect, patient was on 1:1 observation from 1999-to 2099, currently in bed resting, snacked well, labs completed/resulted, care consult ordered/pending evaluation, will continue to monitor.
[2023-04-23] MEDS: Desmopressin Acetate 0.2 MG TABLET PO (23:22)
--- NOTE | 2023-04-24 06:20 | PC.NURSE ---
Patient slept through the night, no distress observed/reported, disposition per care team is [facility] follow up, patient will be reevaluated in the morning, patient requested for his HS medication however due to delayed in approval/verification process, when medication are available to be administered patient was found sleeping, hence HS medication not administered, behavior unpredictable, VSS, will continue to monitor.
--- NOTE | 2023-04-24 07:07 | PC.NURSE ---
patient appears to remain asleep at present respirations are even and unlabored patient appears in no distress.
[2023-04-24] MEDS: FLUoxetine HCl 20 MG CAPSULE 40 MG PO (07:51)
[2023-04-24] MEDS: Divalproex Sodium 500 MG TABLET.DR 1000 MG PO ×2 (07:51→20:15)
[2023-04-24] MEDS: QUEtiapine Fumarate 300 MG TABLET PO ×2 (07:52→20:16)
[2023-04-24] MEDS: Loratadine 10 MG TABLET PO (07:52)
[2023-04-24] MEDS: LORazepam 1 MG TABLET PO ×2 (07:52→20:16)
[2023-04-24] MEDS: Omeprazole 20 MG CAPSULE.DR PO (07:52)
[2023-04-24] MEDS: Propranolol HCL LA 80 MG CAP.SA.24H PO (07:52)
[2023-04-24] MEDS: OLANZapine 10 MG TABLET PO ×2 (07:52→20:16)
[2023-04-24 07:58] VITALS: BP 139/88; PULSE 63; RESP 15; TEMP 36.5; O2SAT 98
--- NOTE | 2023-04-24 09:18 | PC.NURSE ---
made client sandwich, he sat in common area eating and after declining to talk to care team, expressed i want to kill people . declined offered medication to help. t/w told client i dont make sandwiches for felons continues to ambulate in milieu and express displeasure.
[2023-04-24] MEDS: hydrOXYzine HCL 50 MG TABLET PO (09:32)
--- NOTE | 2023-04-24 09:34 | PC.NURSE ---
client declined offered po meds initially then changed mind, client still seems to have many challenges with mood regulation.
--- NOTE | 2023-04-24 09:35 | PC.NURSE ---
seemingly perpetuates attn seeking behaviors, (walking in vacant rooms, talk about killing people in playful voice)
--- NOTE | 2023-04-24 10:40 | PC.NURSE ---
patient continues to ambulate ad carlyn employing negative attention seeking behaviors i want to tomrrow, suck my jace ambulating into vacant rooms and shooting his finger as if to kill people
--- NOTE | 2023-04-24 10:56 | PC.NURSE ---
patient continues to declined offered po medications
[2023-04-24] MEDS: diphenhydrAMINE HCL 50 MG/ML VIAL IM (11:30)
[2023-04-24] MEDS: Haloperidol Lactate 5 MG/ML VIAL IM ×2 (11:30→12:45)
[2023-04-24] MEDS: LORazepam 2 MG/ML VIAL IM ×2 (11:30→12:45)
--- NOTE | 2023-04-24 11:51 | PC.NURSE ---
client still continues to engage in negative attention seeking behavior going into other rooms name calling smacking gardner, entering other vacant rooms and attempting to irritate staff.
--- NOTE | 2023-04-24 12:11 | PC.NURSE ---
cliemt exposing self to staff in an offensive fashion because of dissatisfaction with us not rewarding bad behavior
--- NOTE | 2023-04-24 12:25 | PC.NURSE ---
patient continues to attempt to antagonize staff
[2023-04-24] MEDS: OLANZapine ODT 10 MG TAB.RAPDIS TRANSLINGU (14:43)
[2023-04-24] MEDS: Desmopressin Acetate 0.2 MG TABLET PO (20:15)
[2023-04-24] MEDS: Melatonin 3 MG TABLET 9 MG PO (20:16)
[2023-04-24] MEDS: Sennosides/Docusate Sodium TABLET 2 TAB PO (20:18)
[2023-04-24 21:41] VITALS: BP 131/92; PULSE 65; RESP 18; TEMP 36.4; O2SAT 96
[2023-04-25 06:24] VITALS: RESP 17
--- NOTE | 2023-04-25 06:24 | PC.NURSE ---
Patient slept through the night, no distress observed/reported, disposition per care team is [facility] follow up, patient will be re-evaluated in the morning, possible discharge back to [facility] group if presents good behavioral control, VSS, medication compliant, ne behavior concerns during our shift but unpredictable at times, labs completed/resulted, VSS, will continue to monitor.
--- NOTE | 2023-04-25 07:00 | PC.NURSE ---
patient awakes and approaches nurses station for coffee, adjourns to bathroom. patient appears in no distress.
[2023-04-25] MEDS: Divalproex Sodium 500 MG TABLET.DR 1000 MG PO ×2 (07:16→20:46)
[2023-04-25] MEDS: LORazepam 1 MG TABLET PO ×3 (07:16→20:45)
[2023-04-25] MEDS: Omeprazole 20 MG CAPSULE.DR PO (07:17)
[2023-04-25] MEDS: OLANZapine 10 MG TABLET PO ×2 (07:17→20:46)
[2023-04-25] MEDS: FLUoxetine HCl 20 MG CAPSULE 40 MG PO (07:17)
[2023-04-25] MEDS: Loratadine 10 MG TABLET PO (07:17)
[2023-04-25 07:18] VITALS: BP 121/65; PULSE 75; RESP 16; TEMP 36.4; O2SAT 94
[2023-04-25] MEDS: Propranolol HCL LA 80 MG CAP.SA.24H PO (07:18)
[2023-04-25] MEDS: QUEtiapine Fumarate 300 MG TABLET PO ×2 (07:18→20:45)
[2023-04-25] MEDS: hydrOXYzine HCL 50 MG TABLET PO ×2 (07:55→15:06)
--- NOTE | 2023-04-25 08:06 | PC.NURSE ---
gave client prn as he started banging head on furniture. patient minutes after requested meds b/c he stated hes hearing voices telling him to kill people.
--- NOTE | 2023-04-25 08:08 | PC.NURSE ---
addendum...requested oral medications from provider
--- NOTE | 2023-04-25 09:14 | PC.NURSE ---
patient continues to pace length of unit redirected about walking unit with eyes shut and client not following directions.
--- NOTE | 2023-04-25 09:25 | PC.NURSE ---
minutes after consuming pudding patient continues to engage in what appears to be negative attention seeking behavior ambulating unit with eyes seemingly closed.
--- NOTE | 2023-04-25 09:47 | PC.NURSE ---
client continues to ambulate length of unit with eyes shut, not following directions
--- NOTE | 2023-04-25 10:33 | PC.NURSE ---
patient spent about 15 minutes using word searches printed by staff then resumes pacing unit
--- NOTE | 2023-04-25 12:24 | MHC.CARE ---
Renee Blair [facility] RN [phone] is called re: patient discharging back to retirement. She shares concern that he was in restraints, and the need for staffing upon his return. She states to call in the morning, early, and she will facilitate staff transport.
[2023-04-25] MEDS: Acetaminophen 325 MG TABLET 650 MG PO (13:09)
--- NOTE | 2023-04-25 13:48 | MHC.CARE ---
Spoke to Renee, from service to attempt discharge planning. Renee reports that due to pt rearing PRN and exposing self yesterday as well as unpredictability they cannot pick him up until tomorrow morning. She explained that she does not have the staff equipped to manage his behaviors at the moment, but will tomorrow as well as fears transport will be unsuccessful and pt may have to return. This writer editor informed her that he is ready for discharge, he is medically and psychiatrically cleared. She states that she will be arranging fiber picker for tomorrow at 8am.
[2023-04-25] MEDS: LORazepam 2 MG/ML VIAL IM (19:51)
[2023-04-25] MEDS: diphenhydrAMINE HCL 50 MG/ML VIAL IM (19:52)
[2023-04-25] MEDS: Haloperidol Lactate 5 MG/ML VIAL IM (19:52)
[2023-04-25] MEDS: Melatonin 3 MG TABLET 9 MG PO (20:45)
[2023-04-25] MEDS: Sennosides/Docusate Sodium TABLET 2 TAB PO (20:46)
[2023-04-25] MEDS: Desmopressin Acetate 0.2 MG TABLET PO (20:46)
[2023-04-25 21:07] VITALS: BP 121/73; PULSE 69; RESP 20; TEMP 36.3; O2SAT 95
--- NOTE | 2023-04-25 21:23 | PC.NURSE ---
this rn assumed care of pt @ 1899. pt began escalating behaviors @ 1909- pt banging head and hand on wall in room, threatening to kill pod staff members, and non cooperative. pa tyron to bedside. pt refusing to talk to mias. pt given benadryl 50mg, ativan 2mg, and haldol 5mg IM- security and pod staff at pt side while this rn medicated pt. pt cooperative with im injection
--- NOTE | 2023-04-25 21:26 | PC.NURSE ---
pt cooperative with night time medications, pt noted to deescalate from previous behaviors. pt resting in bed at this time
[2023-04-26 06:26] VITALS: RESP 16
[2023-04-26] MEDS: QUEtiapine Fumarate 300 MG TABLET PO (07:53)
[2023-04-26] MEDS: LORazepam 1 MG TABLET PO (07:53)
[2023-04-26] MEDS: Propranolol HCL LA 80 MG CAP.SA.24H PO (07:54)
[2023-04-26] MEDS: Omeprazole 20 MG CAPSULE.DR PO (07:54)
[2023-04-26] MEDS: Loratadine 10 MG TABLET PO (07:54)
[2023-04-26] MEDS: FLUoxetine HCl 20 MG CAPSULE 40 MG PO (07:54)
[2023-04-26] MEDS: OLANZapine 10 MG TABLET PO (07:54)
[2023-04-26] MEDS: Divalproex Sodium 500 MG TABLET.DR 1000 MG PO (07:54)
--- NOTE | 2023-04-26 09:56 | PC.NURSE ---
patient is alert and able to make needs known. Patient is able to ambulate freely around pod. Patient has good appetite and ate 100% of his breakfast. Denies SI/HI/AH/VH. Patient advocated for discharge back to residential. Patient discharged from facility with belongings.
== END 2023-04-26 09:58 | disposition home or self-care (01) ==
PROVIDERS: Emergency Provider Emergency Medicine
DX: R45.851 Suicidal ideations (principal); F63.81 Intermittent explosive disorder; Z79.899 Other long term (current) drug therapy; Z87.891 Personal history of nicotine dependence
CPT/HCPCS: 36415; 80053; 80164; 80307; 81003; 85025; 96372; 99285; J1200; J1630; J2060; S9485

== ENCOUNTER 2024-06-16 17:46 | Emergency (ER) | payer OTHER, SELFPAY ==
[2024-06-16 17:56] VITALS: PULSE 76; PULSE 84; RESP 16; O2SAT 97; BMI 24.9
[2024-06-16 18:12] VITALS: RESP 16
--- NOTE | 2024-06-16 18:19 | ED.GENADULT ---
HPI - General Adult General Chief complaint: Behavioral Concerns Stated complaint: BEHAVIORAL ISSUES AT [facility] PER EMS Time Seen by Provider: 06/16/24 17:56 Source: patient, RN notes reviewed and old records reviewed Mode of arrival: EMS Limitations: no limitations History of Present Illness ED Provider: Michele HPI narrative: 33-year-old male with past medical history significant for TBI, chronic static encephalopathy, intermittent explosive disorder, mood disorder presents for evaluation of ?I need to talk to somebody. ? The patient states he does not feel safe in his half-way. He is quite adamant that he is not here on a section 12 in his here voluntarily. The patient states he would like to talk to somebody. He reports he has been compliant with his medications. He is not suicidal or homicidal. He was reportedly aggressive with his half-way staff prior to arrival. He has no other complaints or concerns at this time, denies any somatic complaints Related Data Home Medications ?Medication ?Instructions ?Recorded ?Confirmed fluoxetine 40 mg capsule (Prozac) 40 mg PO DAILY 02/07/22 04/23/23 quetiapine 300 mg tablet 300 mg PO BID 02/07/22 04/23/23 sennosides 8.6 mg-docusate sodium 2 tab-cap PO BEDTIME 02/07/22 04/23/23 50 mg tablet (Senna with Docusate Sodium) lorazepam 1 mg tablet (Ativan) 1 mg PO BID 06/26/22 04/23/23 desmopressin 0.2 mg tablet 0.2 mg PO BEDTIME 09/15/22 04/23/23 hydroxyzine pamoate 50 mg capsule 50 mg PO Q6H PRN Anxiety 09/15/22 04/23/23 polyethylene glycol 3350 17 gram 17 g PO DAILY PRN Constipation 09/15/22 04/23/23 oral powder packet (Miralax) melatonin 10 mg capsule 10 mg PO BEDTIME 11/21/22 04/23/23 olanzapine 10 mg tablet 10 mg PO BID 11/21/22 04/23/23 omega 1-aah-aml-fish oil 300 1 cap PO BID 11/21/22 04/23/23 mg-1,000 mg capsule divalproex 500 mg tablet,delayed 1,000 mg PO BID 12/31/22 04/23/23 release propranolol 80 mg capsule,24 80 mg PO QAM 12/31/22 04/23/23 hr,extended release linaclotide 290 mcg capsule 290 mcg PO DAILY 03/31/23 04/23/23 (Linzess) pantoprazole 20 mg tablet,delayed 20 mg PO DAILY@0630 03/31/23 04/23/23 release ibuprofen 600 mg tablet 600 mg PO Q6H PRN Pain 04/01/23 04/23/23 loratadine 10 mg tablet (Allergy 10 mg PO DAILY 04/01/23 04/23/23 Relief (loratadine)) Allergies Allergy/AdvReac Type Severity Reaction Status Date / Time risperidone [From RISPERDAL] Allergy Unknown MUCLE Verified 06/16/24 18:12 TIGHTNESS Review of Systems Constitutional: Constitutional: Denies body ache(s), Denies chills and Denies headache(s) Eyes: Eyes: Denies blurry vision ENT: Denies headache(s) and Denies sore throat Cardiovascular: Cardiovascular: Denies chest pain Gastrointestinal: Gastrointestinal: Denies abdominal pain Musculoskeletal: Musculoskeletal: Denies back pain Integumentary/Breasts: Skin/Breast: Denies rash Neurologic: Denies headache(s) Psychiatric: Psychiatric: Reports mood swings, Denies visual hallucinations and Denies suicidal ideation PMFSH Past Medical History Medical History Mental health disorder Constipation Social History Social History Household Members: Other Household Members Other:: lives in half-way with 3 other patients Housing: House Do you presently have visiting nurse or other home services: Yes ([facility] half-way) Alcohol intake: current Alcohol intake frequency: holidays/special occasions only Alcohol type: beer Comment: 1:1 Patient Tobacco Use Status: Former Tobacco user Tobacco use type: Cigarette Cigarette Packs Per Day: 1 Cigarettes Per Day: 20.0 Years Smoked: 12 Smoked in Last 30 Days: No Second Hand Smoke Exposure: No Use of substances other than those prescribed or required for medical reasons: No Substance Use Type: Unknown Advance Directives: No Advance Directives Information Provided: No service: No Sexual orientation: Did not discuss. Physical Exam ED Vital Signs: Vital Signs - 24 hr 06/16/24 17:56 06/16/24 18:12 Pulse Rate 76 Respiratory Rate 16 16 Pulse Oximetry 97 Oxygen Delivery Method Room Air BMI result Body Mass Index 24.9 Const General: healthy appearing, comfortable, no acute distress, alert and awake Nutritional Appearance: well nourished Orientation/consciousness: patient oriented x3 HENMT Head: Yes normocephalic and Yes atraumatic Eyes Eyelids: Yes eyelids normal Conjunctivae: conjunctivae normal Sclerae: sclerae normal Corneas: corneas normal Pupils: Equal, round and reactive pupils present EOM: EOMs intact bilaterally Neck Neck: Yes full ROM Resp Effort & Inspection: normal respiratory effort, able to speak in complete sentences and not labored Skin General skin exam: elasticity normal Neuro General: patient oriented x3 Cranial nerves: Yes Equal, round and reactive pupils present and Yes Bilaterally intact EOM present Cognition (Neuro): normal cognition Extrem Other: Moving all extremities well without any obvious deformities Course Reevaluation(s) Reevaluation #1: Patient is medically cleared at this time for care team evaluation. Time: 19:48 Reevaluation #2: Patient is seen by the care team and cleared for discharge back to his half-way. The half-way we will be able Time: 20:17 Medical Decision Making Medical Decision Making MDM Narrative: 33-year-old male with past medical history as documented above presents for evaluation of ?mood swings. Plan for medical clearance and care team evaluation. The patient appears at his baseline. He is not suicidal or on a section 12. Differential Diagnosis Differential Diagnoses: The differential diagnosis associated with the presentation includes Mood disorder Intermittent explosive disorder Depression Anxiety Mood swings Lab Data 06/16/24 18:17 06/16/24 18:17 Labs: Lab Results 06/16/24 06/16/24 Range/Units 18:17 19:23 WBC 9.6 (4.8-10.8) X10*3/uL RBC 3.82 L (4.60-5.80) X10*6/uL Hgb 12.3 L (14.0-18.0) g/dl Hct 34.8 L (42.0-52.0) % MCV 91.1 (80.0-98.0) fL MCH 32.2 (27.0-33.0) pg MCHC 35.3 (31.0-36.0) g/dl RDW 11.6 (11.0-16.0) % Plt Count 307 D (160-400) X10*3/uL MPV 8.5 L (9.4-12.4) fL Immature Gran % (Auto) 0.4 (0.0-0.4) % Neut % (Auto) 63.2 (45-73) % Lymph % (Auto) 28.0 (20-40) % [place] % (Auto) 6.3 (2-11) % Eos % (Auto) 1.7 (0-4) % Baso % (Auto) 0.4 (0-2) % Lymph # (Auto) 2.7 (1.2-4.9) X10*3/uL [place] # (Auto) 0.6 (0.1-1.2) X10*3/uL Eos # (Auto) 0.2 (0.0-0.4) X10*3/uL Baso # (Auto) 0.0 (0.0-0.2) X10*3/uL Abs Immat Gran (auto) 0.04 H (0.00-0.03) X10*3/uL Absolute Neuts (auto) 6.0 (2.0-8.3) x10*3/uL Absolute Nucleated RBC 0.000 (0.0-0.012) X10*3/uL Nucleated RBC % (auto) 0.0 (0.0-0.2) /100WBC Sodium 134 L (135-145) mmol/L Potassium 4.2 (3.3-5.1) mmol/L Chloride 104 (96-108) mmol/L Carbon Dioxide 24 (22-29) mmol/L Anion Gap 10 L (12-20) BUN 18 H (9-16) mg/dL Creatinine 0.91 (0.5-1.4) mg/dL Estim Creat Clear Calc 97.5 Estimated GFR > 60 Random Glucose 103 (60-115) mg/dL Calcium 9.2 (8.4-10.2) mg/dL Total Bilirubin 0.4 (0.0-1.0) mg/dL AST 21 (5-37) U/L ALT 18 (0-40) U/L Alkaline Phosphatase 81 (39-117) U/L Total Protein 7.5 (6.5-8.0) g/dL Albumin 4.4 (3.5-5.0) g/dL Urine Color Yellow Urine Appearance Clear Urine pH 5.0 (5.0-9.0) Ur Specific [place] 1.015 (1.005-1.025) Urine Protein Negative (Neg-Trace) mg/dL Urine Glucose (UA) Negative (Negative) mg/dL Urine Ketones Negative (Negative) mg/dL Urine Blood Negative (Negative) Urine Nitrite Negative (Negative) Ur Leukocyte Esterase Negative (Negative) Urine Opiates Screen Not Detected (Not Detect) Ur Buprenorphine Scrn Not Detected (Not Detect) ng/mL Ur Oxycodone Screen Not Detected (Not Detect) ng/mL Urine Methadone Screen Not Detected (Not Detect) ng/mL Urine Fentanyl Screen Not Detected (Not Detect) Ur Barbiturates Screen Not Detected (Not Detect) Ur Phencyclidine Scrn Not Detected (Not Detect) Ur Amphetamines Screen Not Detected (Not Detect) U Benzodiazepines Scrn Not Detected (Not Detect) Urine Cocaine Screen Not Detected (Not Detect) U Marijuana (THC) Screen Not Detected (Not Detect) Ethyl Alcohol < 10 mg/dL Discharge Plan Discharge Clinical Impression: Chronic static encephalopathy Patient Disposition: Home, Self-Care Instructions: Depression (ED) Additional Instructions: Follow-up with your outpatient providers. Return for new or worsening symptoms Prescriptions: No Action lorazepam [Ativan] 1 mg Tablet 1 mg PO BID sennosides-docusate sodium [Senna with Docusate Sodium] 8.6-50 mg Tablet 2 tab-cap PO BEDTIME fluoxetine [Prozac] 40 mg capsule 40 mg PO DAILY quetiapine 300 mg tablet 300 mg PO BID polyethylene glycol 3350 [Miralax] 17 gram Powder In Packet 17 g PO DAILY PRN (Reason: Constipation) Rx Instructions: IF NO BM IN 2 DAYS desmopressin 0.2 mg Tablet 0.2 mg PO BEDTIME hydroxyzine pamoate 50 mg capsule 50 mg PO Q6H PRN (Reason: Anxiety) olanzapine 10 mg tablet 10 mg PO BID omega 3-nhs-ykl-fish oil 300-1,000 mg capsule 1 cap PO BID melatonin 10 mg capsule 10 mg PO BEDTIME Linzess 290 mcg capsule 290 mcg PO DAILY pantoprazole 20 mg tablet,delayed release (DR/EC) 20 mg PO DAILY@0630 ibuprofen 600 mg tablet 600 mg PO Q6H PRN (Reason: Pain) loratadine [Allergy Relief (loratadine)] 10 mg tablet 10 mg PO DAILY divalproex 500 mg Tablet,Delayed Release (Dr/Ec) 1,000 mg PO BID propranolol 80 mg capsule,extended release 24hr 80 mg PO QAM Print Language: Libyan
[2024-06-16 18:23] LABS: MANUAL DIFF FLAG NO
[2024-06-16 18:25] LABS: Basophils Percent Auto 0.4 % (0-2); Eosinophils Absolute Auto 0.2 X10*3/uL (0.0-0.4); Eosinophils Percent Auto 1.7 % (0-4); Hematocrit 34.8 % (42.0-52.0); Hemoglobin 12.3 g/dl (14.0-18.0); Imm Gran Abs Auto 0.04 X10*3/uL (0.00-0.03); Imm Gran Pct Auto 0.4 % (0.0-0.4); Lymphocytes Absolute Auto 2.7 X10*3/uL (1.2-4.9); Mean Corpuscular HGB Conc 35.3 g/dl (31.0-36.0); Mean Corpuscular Hemoglobin 32.2 pg (27.0-33.0); Mean Corpuscular Volume 91.1 fL (80.0-98.0); Mean Platelet Volume 8.5 fL (9.4-12.4); Monocytes Absolute Auto 0.6 X10*3/uL (0.1-1.2); Monocytes Percent Auto 6.3 % (2-11); Neutrophils Percent Auto 63.2 % (45-73); Platelet Count 307 X10*3/uL (160-400); Red Blood Count 3.82 X10*6/uL (4.60-5.80); Red Cell Distribution Width 11.6 % (11.0-16.0); White Blood Count 9.6 X10*3/uL (4.8-10.8)
--- NOTE | 2024-06-16 18:26 | PC.NURSE ---
Pt originally refused to regional climate change analyst, but did agree after offering ice cream. Patient changed over without issue, blood work completed and is now resting in chair, offering no complaints to this RN
[2024-06-16 18:46] LABS: Alanine Aminotransferase 18 U/L (0-40); Albumin Level 4.4 g/dL (3.5-5.0); Anion Gap 10 (12-20); Aspartate Amino Transferase 21 U/L (5-37); Bilirubin Total 0.4 mg/dL (0.0-1.0); Blood Urea Nitrogen 18 mg/dL (9-16); Calcium 9.2 mg/dL (8.4-10.2); Carbon Dioxide 24 mmol/L (22-29); Chloride 104 mmol/L (96-108); Creatinine Clr Calc Pharmacy 97.5; Estimated Glomerular Filt Rate > 60; Ethanol < 10 mg/dL; Glucose Random 103 mg/dL (60-115); Potassium 4.2 mmol/L (3.3-5.1); Sodium 134 mmol/L (135-145); Total Protein 7.5 g/dL (6.5-8.0)
[2024-06-16 19:33] LABS: Appearance Urine Clear; Color Urine Yellow; Glucose Urine UA Negative (Negative); Leukocyte Esterase Urine Negative (Negative); Nitrite Urine Negative (Negative); Specific Gravity - Urine 1.015 (1.005-1.025); Urine Blood Negative (Negative); Urine Ketones Negative (Negative); Urine Protein Negative (Neg-Trace)
[2024-06-16 19:40] LABS: Alkaline Phosphatase 81 U/L (39-117)
[2024-06-16 19:45] LABS: Amphetamine Screen Urine Not Detected (Not Detect); Barbiturates, Urine Not Detected (Not Detect); Benzodiazepines Screen Urine Not Detected (Not Detect); Buprenorphine Scr Not Detected (Not Detect); Cannabinoid Screen Urine Not Detected (Not Detect); Cocaine Screen Urine Not Detected (Not Detect); Fentanyl, urine Not Detected (Not Detect); Methadone Screen, Urine Not Detected (Not Detect); Opiate Screen Urine Not Detected (Not Detect); Oxycodone Screen Urine Not Detected (Not Detect); Phencyclidine Screen Urine Not Detected (Not Detect)
[2024-06-16] MEDS: OXcarbazepine 300 MG TABLET PO (20:35)
[2024-06-16] MEDS: Lithium Carbonate 300 MG CAPSULE 900 MG PO (20:35)
[2024-06-16] MEDS: LORazepam 1 MG TABLET PO (20:35)
[2024-06-16] MEDS: OLANZapine 7.5 MG TABLET 15 MG PO (20:35)
[2024-06-16] MEDS: HaloperidoL 5 MG TABLET 10 MG PO (20:35)
--- NOTE | 2024-06-16 20:47 | MHC.CARE ---
Per dementia program director- staff is available to pick pt up by 9pm. If staff fail to pick him up, contact dementia program director Damien at [phone].
[2024-06-16 20:48] VITALS: BP 116/81; PULSE 78; RESP 17; TEMP 36.4; O2SAT 98
[2024-06-16 20:56] VITALS: BP 116/81; PULSE 78; RESP 17; TEMP 36.4; O2SAT 98
== END 2024-06-16 21:13 | disposition home or self-care (01) ==
PROVIDERS: Emergency Provider Emergency Medicine; PCP Psychiatry & Neurology Psychiatry
DX: G93.49 Other encephalopathy (principal); F63.81 Intermittent explosive disorder; Z51.81 Encounter for therapeutic drug level monitoring; Z79.899 Other long term (current) drug therapy; Z87.891 Personal history of nicotine dependence
CPT/HCPCS: 36415; 80053; 80307; 81003; 85025; 99284; S9485

== ENCOUNTER 2024-06-17 12:39 | Emergency (ER) | payer OTHER, MEDICAID, SELFPAY ==
[2024-06-17 12:51] VITALS: BP 131/87; BP 144/90; PULSE 84; RESP 14; TEMP 37.1; O2SAT 97; O2SAT 98; BMI 25.7
[2024-06-17 13:07] VITALS: BP 117/72; PULSE 90; RESP 16; TEMP 37.1; O2SAT 96
[2024-06-17 13:07] LABS: MANUAL DIFF FLAG NO
--- NOTE | 2024-06-17 13:08 | PC.NURSE ---
Delonte comes in from his nursing home today after an episode of aggression and anger. Per EMS and PD, pt became agitated and started breaking things, yelling, threatening staff and urinating on the floor. pt reports this is true and he does not like living at the nursing home. Patient is calm and cooperative at this time. occasionally yelling out from his room in frustration but is otherwise in no apparent distress. Continue plan of care for medical clearance and CARE team cristian
[2024-06-17 13:11] LABS: Basophils Percent Auto 0.5 % (0-2); Eosinophils Absolute Auto 0.1 X10*3/uL (0.0-0.4); Eosinophils Percent Auto 1.2 % (0-4); Hematocrit 34.5 % (42.0-52.0); Hemoglobin 12.4 g/dl (14.0-18.0); Imm Gran Abs Auto 0.03 X10*3/uL (0.00-0.03); Imm Gran Pct Auto 0.4 % (0.0-0.4); Lymphocytes Absolute Auto 1.9 X10*3/uL (1.2-4.9); Lymphocytes Percent Auto 23.5 % (20-40); Mean Corpuscular HGB Conc 35.9 g/dl (31.0-36.0); Mean Corpuscular Hemoglobin 32.4 pg (27.0-33.0); Mean Corpuscular Volume 90.1 fL (80.0-98.0); Mean Platelet Volume 8.7 fL (9.4-12.4); Monocytes Absolute Auto 0.5 X10*3/uL (0.1-1.2); Monocytes Percent Auto 6.2 % (2-11); Neutrophils Absolute Auto 5.6 x10*3/uL (2.0-8.3); Neutrophils Percent Auto 68.2 % (45-73); Platelet Count 288 X10*3/uL (160-400); Red Blood Count 3.83 X10*6/uL (4.60-5.80); Red Cell Distribution Width 11.6 % (11.0-16.0); White Blood Count 8.2 X10*3/uL (4.8-10.8)
[2024-06-17 13:18] LABS: Appearance Urine Clear; Color Urine Yellow; Glucose Urine UA Negative (Negative); Leukocyte Esterase Urine Negative (Negative); Nitrite Urine Negative (Negative); PH 6.5 (5.0-9.0); Specific Gravity - Urine 1.015 (1.005-1.025); Urine Blood Negative (Negative); Urine Ketones Negative (Negative); Urine Protein Negative (Neg-Trace)
[2024-06-17 13:25] LABS: Ethanol < 10 mg/dL
[2024-06-17 13:26] LABS: Alanine Aminotransferase 19 U/L (0-40); Albumin Level 4.4 g/dL (3.5-5.0); Alkaline Phosphatase 79 U/L (39-117); Anion Gap 9 (12-20); Aspartate Amino Transferase 22 U/L (5-37); Bilirubin Total 0.4 mg/dL (0.0-1.0); Blood Urea Nitrogen 17 mg/dL (9-16); Calcium 8.8 mg/dL (8.4-10.2); Carbon Dioxide 24 mmol/L (22-29); Chloride 107 mmol/L (96-108); Creatinine Clr Calc Pharmacy 92.5; Estimated Glomerular Filt Rate > 60; Glucose Random 81 mg/dL (60-115); Magnesium 2.3 mg/dL (1.6-2.6); Potassium 3.9 mmol/L (3.3-5.1); Sodium 136 mmol/L (135-145); Total Protein 7.4 g/dL (6.5-8.0)
[2024-06-17 13:27] LABS: Amphetamine Screen Urine Not Detected (Not Detect); Barbiturates, Urine Not Detected (Not Detect); Benzodiazepines Screen Urine Not Detected (Not Detect); Buprenorphine Scr Not Detected (Not Detect); Cannabinoid Screen Urine Not Detected (Not Detect); Cocaine Screen Urine Not Detected (Not Detect); Fentanyl, urine Not Detected (Not Detect); Methadone Screen, Urine Not Detected (Not Detect); Opiate Screen Urine Not Detected (Not Detect); Oxycodone Screen Urine Not Detected (Not Detect); Phencyclidine Screen Urine Not Detected (Not Detect)
[2024-06-17 13:36] LABS: COVID-19 Test Negative (Negative); IDNOW Serial# 55D5AD1C
--- NOTE | 2024-06-17 14:21 | ED_ITS ---
HPI - General Adult General Chief complaint: Behavioral Concerns Stated complaint: ALTERED,WANTS HELP,COOPERATIVE PER EMS Time Seen by Provider: 06/17/24 12:53 Source: patient Mode of arrival: ambulatory Limitations: no limitations History of Present Illness ED Provider: ASHWIN Rust HPI narrative: This is a 33-year-old male history of mood disorder, intermittent explosive disorder, TBI, intellectual disability, chronic static encephalopathy presenting to the emergency department with aggressive behavior at half-way, EMS reports he started running things that as a half-way, police and crisis workers arrived and had him transferred to the hospital. He states he wants to be here. Denies visual, auditory and tactile hallucinations. Denies drugs, alcohol and tobacco. No medical complaints at this time. Related Data Home Medications ?Medication ?Instructions ?Recorded ?Confirmed lorazepam 1 mg tablet (Ativan) 1 mg PO BID 06/26/22 06/16/24 desmopressin 0.2 mg tablet 0.2 mg PO BID 09/15/22 06/16/24 olanzapine 10 mg tablet 15 mg PO BID 11/21/22 06/16/24 pantoprazole 20 mg tablet,delayed 20 mg PO DAILY 03/31/23 06/16/24 release haloperidol 10 mg tablet 10 mg PO BID 06/16/24 06/16/24 lithium carbonate 300 mg tablet 900 mg PO BEDTIME 06/16/24 06/16/24 olanzapine 5 mg tablet 5 mg PO BID PRN Agitation 06/16/24 06/16/24 oxcarbazepine 300 mg tablet 300 mg PO BID 06/16/24 06/16/24 Allergies Allergy/AdvReac Type Severity Reaction Status Date / Time risperidone [From RISPERDAL] Allergy Unknown MUCLE Verified 06/17/24 12:53 TIGHTNESS Review of Systems 2 Review of Systems: Yes all other systems are reviewed and are negative PMFSH Past Medical History Attestation statement: The following information was validated with the patient. Source: old records reviewed and nursing notes reviewed Medical History Mental health disorder Constipation Social History Social History Household Members: Other Household Members Other:: lives in half-way with 3 other patients Housing: House Do you presently have visiting nurse or other home services: Yes ([facility] half-way) Alcohol intake: current Alcohol intake frequency: holidays/special occasions only Alcohol type: beer Comment: 1:1 Patient Tobacco Use Status: Former Tobacco user Tobacco use type: Cigarette Cigarette Packs Per Day: 1 Cigarettes Per Day: 20.0 Years Smoked: 12 Smoked in Last 30 Days: No Second Hand Smoke Exposure: No Use of substances other than those prescribed or required for medical reasons: No Substance Use Type: Unknown service: No Sexual orientation: Did not discuss. Physical Exam ED Vital Signs: Vital Signs - 24 hr 06/17/24 12:51 06/17/24 13:07 Temperature 98.8 F 98.7 F Pulse Rate 84 90 Respiratory Rate 14 16 Blood Pressure 131/87 117/72 Pulse Oximetry 98 96 Oxygen Delivery Method Room Air Room Air BMI result Body Mass Index 25.7 vss Appearance: Alert.? Oriented X3.? No acute distress.? Head: Normocephalic, atraumatic, no step-offs or deformities Eyes: Pupils equal, round and reactive to light.? CVS: .? Pulses normal.? Respiratory: No respiratory distress. Skin: Skin warm and dry.? Normal skin color.? Normal skin turgor.? Extremities: No lower extremity edema.? No calf ttp. 5/5 strength to bilateral upper and lower extremities Neuro: Oriented X 3.? No motor deficit.? No sensory deficit. CN 2-12 intact Course Reevaluation(s) Reevaluation #1: CBC unremarkable. Chemistry no acute findings eating intervention. UA without infection. Urine toxicology and ethanol negative. COVID negative. Time: 14:27 Reevaluation #2: Pending evaluation by care team. Time: 15:22 Medical Decision Making Medical Decision Making [facility] Narrative: 33 year old male presents w/ aggressive outburst at [facility]. PE- flat affect History and physical exam concerning for mood disorder and aggressive behavior. Intellectual disability likely playing a role in patient's presentation. I do not suspect metabolic derangements. Plan medical clearance evaluation by care team Differential Diagnosis Differential Diagnoses: The differential diagnosis associated with the presentation includes Admission/Observation Consideration of admission/observation: Escalation of care including admission/observation considered (posisble pscyh ) Lab Data [facility] Lab Attestation statement: I reviewed the patient's lab results. 06/17/24 13:02 06/17/24 13:02 Labs: Lab Results 06/17/24 06/17/24 Range/Units 13:02 13:05 WBC 8.2 (4.8-10.8) X10*3/uL RBC 3.83 L (4.60-5.80) X10*6/uL Hgb 12.4 L (14.0-18.0) g/dl Hct 34.5 L (42.0-52.0) % MCV 90.1 (80.0-98.0) fL MCH 32.4 (27.0-33.0) pg MCHC 35.9 (31.0-36.0) g/dl RDW 11.6 (11.0-16.0) % Plt Count 288 (160-400) X10*3/uL MPV 8.7 L (9.4-12.4) fL Immature Gran % (Auto) 0.4 (0.0-0.4) % Neut % (Auto) 68.2 (45-73) % Lymph % (Auto) 23.5 (20-40) % [place] % (Auto) 6.2 (2-11) % Eos % (Auto) 1.2 (0-4) % Baso % (Auto) 0.5 (0-2) % Lymph # (Auto) 1.9 (1.2-4.9) X10*3/uL [place] # (Auto) 0.5 (0.1-1.2) X10*3/uL Eos # (Auto) 0.1 (0.0-0.4) X10*3/uL Baso # (Auto) 0.0 (0.0-0.2) X10*3/uL Abs Immat Gran (auto) 0.03 (0.00-0.03) X10*3/uL Absolute Neuts (auto) 5.6 (2.0-8.3) x10*3/uL Absolute Nucleated RBC 0.000 (0.0-0.012) X10*3/uL Nucleated RBC % (auto) 0.0 (0.0-0.2) /100WBC Sodium 136 (135-145) mmol/L Potassium 3.9 (3.3-5.1) mmol/L Chloride 107 (96-108) mmol/L Carbon Dioxide 24 (22-29) mmol/L Anion Gap 9 L (12-20) BUN 17 H (9-16) mg/dL Creatinine 0.96 (0.5-1.4) mg/dL Estim Creat Clear Calc 92.5 Estimated GFR > 60 Random Glucose 81 (60-115) mg/dL Calcium 8.8 (8.4-10.2) mg/dL Magnesium 2.3 (1.6-2.6) mg/dL Total Bilirubin 0.4 (0.0-1.0) mg/dL AST 22 (5-37) U/L ALT 19 (0-40) U/L Alkaline Phosphatase 79 (39-117) U/L Total Protein 7.4 (6.5-8.0) g/dL Albumin 4.4 (3.5-5.0) g/dL Urine Color Yellow Urine Appearance Clear Urine pH 6.5 (5.0-9.0) Ur Specific [place] 1.015 (1.005-1.025) Urine Protein Negative (Neg-Trace) mg/dL Urine Glucose (UA) Negative (Negative) mg/dL Urine Ketones Negative (Negative) mg/dL Urine Blood Negative (Negative) Urine Nitrite Negative (Negative) Ur Leukocyte Esterase Negative (Negative) Urine Opiates Screen Not Detected (Not Detect) Ur Buprenorphine Scrn Not Detected (Not Detect) ng/mL Ur Oxycodone Screen Not Detected (Not Detect) ng/mL Urine Methadone Screen Not Detected (Not Detect) ng/mL Urine Fentanyl Screen Not Detected (Not Detect) Ur Barbiturates Screen Not Detected (Not Detect) Ur Phencyclidine Scrn Not Detected (Not Detect) Ur Amphetamines Screen Not Detected (Not Detect) U Benzodiazepines Scrn Not Detected (Not Detect) Urine Cocaine Screen Not Detected (Not Detect) U Marijuana (THC) Screen Not Detected (Not Detect) Ethyl Alcohol < 10 mg/dL COVID-19 (GARY) Negative (Negative) COVID-19 Clin Com See Note External Record Review External record reviewed: Inpatient record, Office record, Outpatient record, Prior outpatient labs, Prior outpatient radiology, Primary care record and Outside ED record Chronic Conditions Patient?s care impacted by: Other (see hpi ) Critical Care Time Critical Care Time Critical Care Time: No Discharge Plan Discharge Clinical Impression: Intermittent explosive disorder Patient Disposition: Still a Patient Prescriptions: No Action lorazepam [Ativan] 1 mg Tablet 1 mg PO BID desmopressin 0.2 mg Tablet 0.2 mg PO BID olanzapine 10 mg tablet 15 mg PO BID pantoprazole 20 mg tablet,delayed release (DR/EC) 20 mg PO DAILY olanzapine 5 mg tablet 5 mg PO BID PRN (Reason: Agitation) oxcarbazepine 300 mg tablet 300 mg PO BID haloperidol [Haldol] 10 mg Tablet 10 mg PO BID lithium carbonate 300 mg Tablet 900 mg PO BEDTIME Print Language: Sinhala
--- NOTE | 2024-06-17 17:04 | MHC.CARE ---
pt was not assessed as he was resting. Pt is NOT on a sec 12a and can be d/c home if provider decides to send home. Pt presents at baseline is not being recommended for IPLOC
[2024-06-17 20:09] VITALS: BP 119/79; PULSE 85; RESP 18; TEMP 36.8; O2SAT 99
[2024-06-17] MEDS: Lithium Carbonate 300 MG CAPSULE 900 MG PO (20:33)
[2024-06-17] MEDS: HaloperidoL 5 MG TABLET 10 MG PO (20:34)
[2024-06-17] MEDS: OXcarbazepine 300 MG TABLET PO (20:34)
[2024-06-17] MEDS: LORazepam 1 MG TABLET PO (20:34)
[2024-06-17] MEDS: OLANZapine 7.5 MG TABLET 15 MG PO (20:34)
[2024-06-18 06:11] VITALS: RESP 17
--- NOTE | 2024-06-18 06:43 | PC.NURSE ---
Patient slept through the night, no distress observed/reported, pending care team evaluation, 15 minutes safety check, no behavior and safety concerns, will continue to monitor
--- NOTE | 2024-06-18 07:12 | PC.NURSE ---
Assumed care of patient at 0645, patient appears to be in no apparent distress this am, calm and cooperative, ate breakfast, offering no complaints to this RN. Continue plan of care for CARE team follow up
--- NOTE | 2024-06-18 07:38 | PC.NURSE ---
Pt acting out by throwing banana and blanket on the floor in the hallway and flipping staff off. Patient returned to room without issue or staff intervening
--- NOTE | 2024-06-18 08:14 | PC.NURSE ---
Addendum entered by Jenna Adams 06/18/24 08:46: Patient came to nurses station requesting am medications. All am medications provided per AUG. This RN could not undo documentation against morning medications so all meds were given as unscheduled Original Note: Patient refusing all am medications
[2024-06-18] MEDS: Desmopressin Acetate 0.2 MG TABLET PO ×2 (08:24→20:53)
[2024-06-18] MEDS: Omeprazole 20 MG CAPSULE.DR PO (08:24)
[2024-06-18] MEDS: OXcarbazepine 300 MG TABLET PO ×2 (08:24→20:53)
[2024-06-18] MEDS: OLANZapine 7.5 MG TABLET 15 MG PO ×2 (08:25→20:53)
[2024-06-18] MEDS: HaloperidoL 5 MG TABLET 10 MG PO ×2 (08:25→20:53)
[2024-06-18] MEDS: LORazepam 1 MG TABLET PO ×2 (08:25→20:53)
--- NOTE | 2024-06-18 08:29 | PC.NURSE ---
Pt threatening staff verbally, raising his fist reporting that he will fuck this RN up , exposing genitalia to staff and other patients. Patient threatening to break out of the pod . Pt continued to escalate, calling staff bitches yanick cocksuckers . Pt began kicking the door to the nurses station, hitting the wall in his room. Dr. Varela at bedside to speak with patient. Plan for IM injection of 10mg Zyprexa. Pt tolerated IM well without issue in the left deltoid. Patient took IM injection willingly, security did hold pts arm due to his impulsivity and threats towards this RN. Patient now ambulating around BH pod continuing to threaten this RN and other staff
[2024-06-18] MEDS: OLANZapine 10 MG VIAL IM (08:40)
--- NOTE | 2024-06-18 09:12 | PC.NURSE ---
patient calming down at this time, politely asking to have orange juice and apologizing to this RN
[2024-06-18] MEDS: LORazepam 2 MG/ML VIAL IM ×2 (10:00→16:10)
--- NOTE | 2024-06-18 10:09 | PC.NURSE ---
Delonte continues to act out, exposing his genitalia to staff, telling this RN to suck this cock . Pt threatening to punch this RN and other staff. Pt standing in hallway yelling, threatening to break out of the behavioral health pod. Pt continues to call staff names jorge , joe , parvin , ruchi de luna . Pt educated once again that his behavior is not appropriate. Pt throwing items such as cups and blankets, items taken away. Dr. Varela made aware and a verbal order for Ativan 2mg IM was given. Pt was given Ativan IM in the left deltoid, with security present. After administration, pt threatened to punch this RN, raising his fist, security stopped patient. Patient now resting in his room still agitated, punching the wall, TV and calling staff names.
--- NOTE | 2024-06-18 10:39 | PHA.MEDREC ---
Addendum entered by Asha Hancock RPh 06/18/24 10:40: list is from [facility]. Original Note: Pharmacy Consult ? Medication Reconciliation Pharmacy has completed the medication reconciliation, reviewed what was completed by nursing. Utilized med list from patient's chart.
--- NOTE | 2024-06-18 10:43 | PC.NURSE ---
Patient calmer at this time, resting in bed, respirations even and unlabored, no apparent distress noted
[2024-06-18 13:14] VITALS: RESP 16
--- NOTE | 2024-06-18 16:29 | PC.NURSE ---
Late entry: patient began acting out again, threatening to hit this RN, attempting to enter the nurses station. Security called to bedside. Dr. Varela made aware. Pt was given 2mg Ativan IM in the left deltoid without issue
--- NOTE | 2024-06-18 18:38 | PC.NURSE ---
Patient refusing vital signs fuck you bitch, don't touch me
[2024-06-18] MEDS: Lithium Carbonate 300 MG CAPSULE 900 MG PO (20:53)
--- NOTE | 2024-06-19 01:21 | PC.NURSE ---
patient soon after taking meds and requesting snacks, pudding patient audbly calling staff bitches and saying loud enough to be heard 20 ft away mekhi you guys t/w asked client if he needed medication for help with his behavior, will continue to monitor.
[2024-06-19 06:06] VITALS: RESP 17
--- NOTE | 2024-06-19 06:07 | MHC.EDTECH ---
PT refused AM vital signs. respirations counted and documented. RN aware
[2024-06-19] MEDS: OXcarbazepine 300 MG TABLET PO (09:05)
[2024-06-19] MEDS: HaloperidoL 5 MG TABLET 10 MG PO (09:05)
[2024-06-19] MEDS: LORazepam 1 MG TABLET PO (09:05)
[2024-06-19] MEDS: OLANZapine 7.5 MG TABLET 15 MG PO (09:05)
[2024-06-19] MEDS: Omeprazole 20 MG CAPSULE.DR PO (09:05)
[2024-06-19] MEDS: Desmopressin Acetate 0.2 MG TABLET PO (09:06)
[2024-06-19 10:33] VITALS: BP 119/75; PULSE 85; RESP 17; TEMP 36.8; O2SAT 99
== END 2024-06-19 10:35 | disposition home or self-care (01) ==
PROVIDERS: Physician Assistant; Emergency Provider Emergency Medicine; PCP Psychiatry & Neurology Psychiatry
DX: F63.81 Intermittent explosive disorder (principal); F39 Unspecified mood [affective] disorder; G93.49 Other encephalopathy; F79 Unspecified intellectual disabilities; Z87.891 Personal history of nicotine dependence; Z87.820 Personal history of traumatic brain injury; Z79.899 Other long term (current) drug therapy; Z11.52 Encounter for screening for COVID-19
CPT/HCPCS: 36415; 80053; 80307; 81003; 83735; 85025; 87635; 99284; 99285; J2060; J2359; S9485

== ENCOUNTER 2024-06-27 12:09 | Emergency (ER) | payer OTHER, MEDICAID, SELFPAY ==
[2024-06-27 12:17] VITALS: BP 110/70; BP 114/74; PULSE 108; PULSE 85; RESP 18; TEMP 36.8; O2SAT 97; BMI 23.4
--- NOTE | 2024-06-27 12:19 | ED_ITS ---
HPI - Psych General Chief Complaint: Psychiatric Symptoms Stated Complaint: SI W/PLAN,CANNABIS USE THIS AM PER EMS Time Seen by Provider: 06/27/24 12:13 Source: patient, EMS and old records reviewed Mode of arrival: EMS Limitations: no limitations History of Present Illness ED Provider: DR. Ivan HPI Narrative: 33-year-old male history of developmental delay, explosive behavior disorder presented from snf after he disclosed to [facility] suicidal thought with plan using a knife gun. Otherwise patient has no complaint no CP, no abdominal pain, no headache. Patient declined using drugs only use vape. Related Data Home Medications ?Medication ?Instructions ?Recorded ?Confirmed lorazepam 1 mg tablet (Ativan) 1 mg PO BID 06/26/22 06/17/24 desmopressin 0.2 mg tablet 0.2 mg PO BID 09/15/22 06/17/24 olanzapine 10 mg tablet 15 mg PO BID 11/21/22 06/17/24 pantoprazole 20 mg tablet,delayed 20 mg PO DAILY@0630 03/31/23 06/18/24 release haloperidol 10 mg tablet 10 mg PO BID 06/16/24 06/17/24 lithium carbonate 300 mg tablet 900 mg PO BEDTIME 06/16/24 06/17/24 olanzapine 5 mg tablet 5 mg PO BID PRN Agitation 06/16/24 06/17/24 oxcarbazepine 300 mg tablet 300 mg PO BID 06/16/24 06/17/24 acetaminophen 500 mg tablet 1,000 mg PO Q6H PRN pain or fever 06/18/24 06/18/24 fenofibrate micronized 67 mg 67 mg PO DAILY 06/18/24 06/18/24 capsule ibuprofen 600 mg tablet 600 mg PO Q6H PRN Pain 06/18/24 06/18/24 trazodone 50 mg tablet 50 mg PO DAILY PRN if not asleep 06/18/24 06/18/24 by 10pm Allergies Allergy/AdvReac Type Severity Reaction Status Date / Time risperidone [From RISPERDAL] Allergy Unknown MUCLE Verified 06/27/24 12:19 TIGHTNESS Review of Systems 2 Review of Systems: All other systems are reviewed and are negative Constitutional: Reports as per HPI and Reports no additional constitutional complaints Eyes: Reports as per HPI and Reports no additional eye complaints Reports system reviewed and no additional complaints, except as documented Cardiovascular: Reports as per HPI and Reports no additional cardiovascular complaints Respiratory: Reports as per HPI and Reports no additional respiratory complaints Gastrointestinal: Reports as per HPI and Reports no additional gastrointestinal complaints Genitourinary: Reports no additional female genitourinary complaints Musculoskeletal: Reports no additional musculoskeletal complaints Skin/Breast: Reports system reviewed and no additional complaints, except as docu Psychiatric: Reports no additional psychiatric complaints Endocrine: Reports no additional endocrine complaints Hematologic/Lymphatic: Reports no additional hematologic/lymphatic complaints Allergic/Immunologic: Reports no additional allergic/immunologic complaints Reports system reviewed and no additional complaints, except as documented and Reports Abnormal speech present [facility] Past Medical History Medical History Mental health disorder Constipation Social History Social History Household Members: Other Household Members Other:: lives in snf with 3 other patients Housing: House Do you presently have visiting nurse or other home services: Yes ([facility] [address] snf) Alcohol intake: current Alcohol intake frequency: holidays/special occasions only Alcohol type: beer Comment: 1:1 Patient Tobacco Use Status: Former Tobacco user Tobacco use type: Cigarette Cigarette Packs Per Day: 1 Cigarettes Per Day: 20.0 Years Smoked: 12 Smoked in Last 30 Days: No Second Hand Smoke Exposure: No Use of substances other than those prescribed or required for medical reasons: No Substance Use Type: Unknown Advance Directives: No service: No Sexual orientation: Did not discuss. Physical Exam 2 Vital Signs: Vital Signs: Last Vital Signs Temp 98.3 F 06/27/24 12:17 Pulse 85 06/27/24 12:17 Resp 16 06/27/24 12:21 BP 114/74 06/27/24 12:17 Pulse Ox 97 06/27/24 12:17 O2 Del Method Room Air 06/27/24 12:17 BMI result Body Mass Index 23.4 Vital signs have been reviewed and appear to be correct. Blood pressure elevated. Heart rate normal. Respiratory rate normal. Temperature normal. Oxygen saturation normal. Appearance: Alert. Oriented X3. No acute distress. Head: Normal external exam. Normocephalic. Atraumatic. No [place] signs noted. No raccoon eyes noted Eyes: PERRLA. EOMI. Conjunctiva and sclera normal. Eyelids normal. ENT: TM's Normal. Pharynx normal. Uvula midline. Moist mucous membranes. No trismus noted. No drooling noted. No muffled voice noted. Neck: Normal inspection. Neck supple. FROM. No adenopathy. Thyroid Normal. No meningeal signs. No neck mass noted. CVS: Normal heart rate and rhythm. Heart sound normal. No murmurs noted. Pulses normal throughout. Respiratory: No respiratory distress. Painless inspiration. Breath sounds normal. No wheezes/rales/rhonchi noted. Chest nontender. No accessory muscle usage noted or decreased air movement noted. Abdomen: Soft and nontender. Bowel sounds normal in all 4 quadrants. No distention noted. No organomegaly noted. No visible injury noted. Back: No CVA tenderness. Full range of motion noted. Skin: Skin warm and dry. Normal skin color. Normal skin turgor. No rashes/lesions/lacerations noted. Extremities: No lower extremity edema. Extremities exhibit normal range of motion. Extremities nontender. Neuro: Oriented X 3. Cranial nerve exam: II-XII are grossly intact No motor deficit. No sensory deficit. Reflexes normal. Patient Orientation: Person, Place, Time and Situation, okay hygiene and grooming. Fair eye contact, attentive, no tics or tremors. Level of Consciousness: Awake, Appropriate and Alert Patient Behavior: Appropriate, Guarded, Cooperative and Anxious Mood Description: Constricted, Blunted and Apprehensive Affect Description: Constricted, Blunted and Apprehensive Patient Cognition Impaired: No Ability to Follow Directions: Excellent Speech Pattern: Clear, Appropriate and Spontaneous Speech, nonpressured, spontaneous with regular rate and rhythm, normal volume and prosody. No dysarthria. Memory Description: Intact, Immediate Intact and Short Term Intact Hallucinations: None Delusions: Not Present Thought Process: Intact Thought Content: positive for Intact, denies Homicidal Ideation, have suicidal ideation with plan of using knife or gun (declines having a gun). Depressive Symptoms: Not present. Judgement and Insight: Limited but adequate. Course Reevaluation(s) Reevaluation #1: Patient now is calm, no anxiety, denies SI, or HI, collateral will contacted by care team this is usual behavior for the patient will send the patient back to the snf. Time: 13:30 Medical Decision Making Differential Diagnosis Differential Diagnoses: The differential diagnosis associated with the presentation includes (Medical clearance, electrolyte derangement, severe anemia, intermittent explosive behavior, depression, SI, HI, hallucination.) Admission/Observation Consideration of admission/observation: Escalation of care including admission/observation considered Lab Data MDM Lab Attestation statement: I reviewed the patient's lab results. 06/27/24 12:42 06/27/24 12:42 Labs: Lab Results 06/27/24 06/27/24 Range/Units 12:42 12:43 WBC 7.5 (4.8-10.8) X10*3/uL RBC 3.76 L (4.60-5.80) X10*6/uL Hgb 12.1 L (14.0-18.0) g/dl Hct 34.4 L (42.0-52.0) % MCV 91.5 (80.0-98.0) fL MCH 32.2 (27.0-33.0) pg MCHC 35.2 (31.0-36.0) g/dl RDW 11.8 (11.0-16.0) % Plt Count 273 (160-400) X10*3/uL MPV 8.7 L (9.4-12.4) fL Immature Gran % (Auto) 0.4 (0.0-0.4) % Neut % (Auto) 60.7 (45-73) % Lymph % (Auto) 28.3 (20-40) % [place] % (Auto) 8.2 (2-11) % Eos % (Auto) 2.0 (0-4) % Baso % (Auto) 0.4 (0-2) % Lymph # (Auto) 2.1 (1.2-4.9) X10*3/uL [place] # (Auto) 0.6 (0.1-1.2) X10*3/uL Eos # (Auto) 0.2 (0.0-0.4) X10*3/uL Baso # (Auto) 0.0 (0.0-0.2) X10*3/uL Abs Immat Gran (auto) 0.03 (0.00-0.03) X10*3/uL Absolute Neuts (auto) 4.5 (2.0-8.3) x10*3/uL Absolute Nucleated RBC 0.000 (0.0-0.012) X10*3/uL Nucleated RBC % (auto) 0.0 (0.0-0.2) /100WBC Sodium 137 (135-145) mmol/L Potassium 4.1 (3.3-5.1) mmol/L Chloride 105 (96-108) mmol/L Carbon Dioxide 26 (22-29) mmol/L Anion Gap 10 L (12-20) BUN 17 H (9-16) mg/dL Creatinine 0.87 (0.5-1.4) mg/dL Estim Creat Clear Calc 110.0 Estimated GFR > 60 Random Glucose 89 (60-115) mg/dL Calcium 9.0 (8.4-10.2) mg/dL Total Bilirubin 0.4 (0.0-1.0) mg/dL Direct Bilirubin 0.2 (0.0-0.5) mg/dL AST 24 (5-37) U/L ALT 24 (0-40) U/L Alkaline Phosphatase 76 (39-117) U/L Total Protein 7.5 (6.5-8.0) g/dL Albumin 4.4 (3.5-5.0) g/dL Urine Color Yellow Urine Appearance Clear Urine pH 7.0 (5.0-9.0) Ur Specific [place] 1.010 (1.005-1.025) Urine Protein Negative (Neg-Trace) mg/dL Urine Glucose (UA) Negative (Negative) mg/dL Urine Ketones Negative (Negative) mg/dL Urine Blood Negative (Negative) Urine Nitrite Negative (Negative) Ur Leukocyte Esterase Negative (Negative) Salicylates < 5.0 L (15-30) mg/dL Urine Opiates Screen Not Detected (Not Detect) Ur Buprenorphine Scrn Not Detected (Not Detect) ng/mL Ur Oxycodone Screen Not Detected (Not Detect) ng/mL Urine Methadone Screen Not Detected (Not Detect) ng/mL Urine Fentanyl Screen Not Detected (Not Detect) Acetaminophen < 3 (<30) mcg/mL Ur Barbiturates Screen Not Detected (Not Detect) Ur Phencyclidine Scrn Not Detected (Not Detect) Ur Amphetamines Screen Not Detected (Not Detect) U Benzodiazepines Scrn Not Detected (Not Detect) Urine Cocaine Screen Not Detected (Not Detect) U Marijuana (THC) Screen Not Detected (Not Detect) Ethyl Alcohol < 10 mg/dL Discharge Plan Discharge Clinical Impression: Suicidal ideation Patient Disposition: Home, Self-Care Instructions: Suicide Prevention (ED) Prescriptions: No Action lorazepam [Ativan] 1 mg Tablet 1 mg PO BID desmopressin 0.2 mg Tablet 0.2 mg PO BID olanzapine 10 mg tablet 15 mg PO BID pantoprazole 20 mg tablet,delayed release (DR/EC) 20 mg PO DAILY@0630 olanzapine 5 mg tablet 5 mg PO BID PRN (Reason: Agitation) oxcarbazepine 300 mg tablet 300 mg PO BID haloperidol [Haldol] 10 mg Tablet 10 mg PO BID lithium carbonate 300 mg Tablet 900 mg PO BEDTIME trazodone 50 mg Tablet 50 mg PO DAILY PRN (Reason: if not asleep by 10pm) fenofibrate micronized 67 mg Capsule 67 mg PO DAILY acetaminophen 500 mg Tablet 1,000 mg PO Q6H PRN (Reason: pain or fever) ibuprofen 600 mg Tablet 600 mg PO Q6H PRN (Reason: Pain) Interventions: Hannacroix-Suicide Risk Severity Scale Last Done: 06/27/24 12:22 Print Language: Luxembourgish
[2024-06-27 12:21] VITALS: RESP 16
--- NOTE | 2024-06-27 12:34 | PC.NURSE ---
pt originally refusing to traveler changer, threatening staff verbally, calling security niggers and bitches . Pt angry that he is here in the pod, MD Ivan aware
--- NOTE | 2024-06-27 12:48 | PC.NURSE ---
pt briefly spoke with CARE team clinician
[2024-06-27 12:52] LABS: MANUAL DIFF FLAG NO
[2024-06-27 12:53] LABS: Basophils Percent Auto 0.4 % (0-2); Eosinophils Absolute Auto 0.2 X10*3/uL (0.0-0.4); Hematocrit 34.4 % (42.0-52.0); Hemoglobin 12.1 g/dl (14.0-18.0); Imm Gran Abs Auto 0.03 X10*3/uL (0.00-0.03); Imm Gran Pct Auto 0.4 % (0.0-0.4); Lymphocytes Absolute Auto 2.1 X10*3/uL (1.2-4.9); Lymphocytes Percent Auto 28.3 % (20-40); Mean Corpuscular HGB Conc 35.2 g/dl (31.0-36.0); Mean Corpuscular Hemoglobin 32.2 pg (27.0-33.0); Mean Corpuscular Volume 91.5 fL (80.0-98.0); Mean Platelet Volume 8.7 fL (9.4-12.4); Monocytes Absolute Auto 0.6 X10*3/uL (0.1-1.2); Monocytes Percent Auto 8.2 % (2-11); Neutrophils Absolute Auto 4.5 x10*3/uL (2.0-8.3); Neutrophils Percent Auto 60.7 % (45-73); Platelet Count 273 X10*3/uL (160-400); Red Blood Count 3.76 X10*6/uL (4.60-5.80); Red Cell Distribution Width 11.8 % (11.0-16.0); White Blood Count 7.5 X10*3/uL (4.8-10.8)
[2024-06-27 13:02] LABS: Appearance Urine Clear; Color Urine Yellow; Glucose Urine UA Negative (Negative); Leukocyte Esterase Urine Negative (Negative); Nitrite Urine Negative (Negative); Urine Blood Negative (Negative); Urine Ketones Negative (Negative); Urine Protein Negative (Neg-Trace)
[2024-06-27 13:03] LABS: Amphetamine Screen Urine Not Detected (Not Detect); Barbiturates, Urine Not Detected (Not Detect); Benzodiazepines Screen Urine Not Detected (Not Detect); Buprenorphine Scr Not Detected (Not Detect); Cannabinoid Screen Urine Not Detected (Not Detect); Cocaine Screen Urine Not Detected (Not Detect); Fentanyl, urine Not Detected (Not Detect); Methadone Screen, Urine Not Detected (Not Detect); Opiate Screen Urine Not Detected (Not Detect); Oxycodone Screen Urine Not Detected (Not Detect); Phencyclidine Screen Urine Not Detected (Not Detect)
[2024-06-27 13:09] LABS: Acetaminophen LAB < 3 mcg/mL (<30); Alanine Aminotransferase 24 U/L (0-40); Albumin Level 4.4 g/dL (3.5-5.0); Alkaline Phosphatase 76 U/L (39-117); Anion Gap 10 (12-20); Aspartate Amino Transferase 24 U/L (5-37); Bilirubin Direct 0.2 mg/dL (0.0-0.5); Bilirubin Total 0.4 mg/dL (0.0-1.0); Blood Urea Nitrogen 17 mg/dL (9-16); Carbon Dioxide 26 mmol/L (22-29); Chloride 105 mmol/L (96-108); Estimated Glomerular Filt Rate > 60; Ethanol < 10 mg/dL; Glucose Random 89 mg/dL (60-115); Potassium 4.1 mmol/L (3.3-5.1); Salicylate < 5.0 mg/dL (15-30); Sodium 137 mmol/L (135-145); Total Protein 7.5 g/dL (6.5-8.0)
--- NOTE | 2024-06-27 13:15 | MHC.EDTECH ---
Delonte got his lunch and eating right now.
--- NOTE | 2024-06-27 14:13 | MHC.CARE ---
Pt. evaluated by the CARE team. Dispo is for discharge. Collaterals contacted, Dr. Ivan agreed to discharge.
[2024-06-27 15:57] VITALS: BP 108/60; PULSE 74; RESP 14; TEMP 36.6; O2SAT 97
--- OUTSIDE RECORDS SUMMARY | 2024-06-27 16:30 | XMS_ITS | Referral Summary ---
Author Organization [facility] Address [address] [place] [address] Care Team Providers Care City Planner Name Role Phone Santiago Villa Primary Care Provider [phone] Allergies Active Allergy Reactions Criticality Noted Date Comments Risperidone Unknown 06/29/2022 Medications bisacodyL (DULCOLAX) 10 mg suppository Insert 10 mg into the rectum as needed. 2 Active ibuprofen (MOTRIN) 600 mg tablet every 6 hours as needed. 2 Active Linzess 145 mcg capsule once a day. 2 Active loratadine (CLARITIN) 10 mg tablet 2 Active omeprazole (PriLOSEC) 20 mg capsule See Instructions, TAKE 1 CAPSULE BY MOUTH EVERY MORNING 30 MINUTES BEFORE MEAL, # 28 capsule, 2 Refills, Maintenance, 05/14/22 10:42:00 EST, [facility] 37, 173, cm, 04/29/22 8:45:00 EST, Height, 85.8, kg, 04/07/21 14:21:00 EDT, Dry Weight 2 Active LORazepam (ATIVAN) 1 mg tablet Take 1 mg by mouth. 2 Active diclofenac (VOLTAREN) 1% gel Apply 1 application. topically to the affected area. 2 Active Depakote ER 500 mg tablet Take 1,500 mg by mouth at bed time. 2 Active melatonin 3 mg tablet Take 6 mg by mouth nightly as needed. 2 Active Inderal XL 80 mg 24 hr capsule Take 80 mg by mouth once a day. 2 Active FLUoxetine (PROzac) 40 mg capsule Take 40 mg by mouth once a day. 2 Active QUEtiapine (SEROquel) 300 mg tablet Take 300 mg by mouth 2 times a day. 2 Active SEROqueL 300 mg tablet Take 300 mg by mouth 2 times a day. 2 Active zolpidem (AMBIEN) 10 mg tablet Take 10 mg by mouth nightly. 2 Active ZyPREXA 15 mg tablet Take 15 mg by mouth 2 times a day. 2 Active psyllium (METAMUCIL) 3.4 gram packet Take 12 g by mouth. 2 Active Horace-Gest Antacid 200 mg calcium (500 mg) chewable tablet Chew and swallow 1 tablet by mouth every 4 hours as needed. 2 Active Miralax powder 2 Active sennosides-docus ate sodium (PERICOLACE) 8.6-50 mg Take 2 tablets by mouth. 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 Social History Tobacco Use Types Packs/Day Years Used Date Smoking Tobacco: Never Smokeless Tobacco: Never Tobacco Cessation:Counseling Given: Not Answered Alcohol Use Standard Drinks/Week Comments Never 0 (1 standard drink = 0.6 oz pur e alcohol) Sex and Gender Information Value Date Recorded Sex Assigned at Not on file Legal Sex Male 12:34 PM EDT Gender Identity Not on file Sexual Orientation Not on file Last Filed Vital Signs Vital Sign Reading Time Taken Comments Blood Pressure 118/83 06/29/2022 2:06 PM EST Pulse 83 06/29/2022 2:06 PM EST Temperature 36.9 ??C (98.4 ??F) 06/29/2022 2:06 PM ES T Respiratory Rate 16 06/29/2022 2:06 PM EST Oxygen Saturation 95% 09/19/2020 1:28 PM EDT Inhaled Oxygen Concentration - - Weight 90 kg (198 lb 6.6 oz) 06/29/2022 2:06 PM EST Height 172.7 cm (5' 8 ) 06/29/2022 2:06 PM EST Body Mass Index 30.17 06/29/2022 2:06 PM EST Plan of Treatment Not on file Insurance [address] [facility] NATASHA MORALES [id number] [place] Care Teams City Planner Relationship Specialty Start Date End Date Santiago Villa [address] [place] [address] PCP - General Internal Medicine 06/29/22
--- OUTSIDE RECORDS SUMMARY | 2024-06-27 16:30 | XMS_ITS | Clinical Summary ---
Author Organization [facility] Address [address] [place] [address] Care Team Providers Care Crop Specialist Name Role Phone Santiago Villa Primary Care Provider [phone] Allergies Active Allergy Reactions Criticality Noted Date [...] capsule, 2 Refills, Maintenance, 05/14/22 10:42:00 EST, [facility] 37, 173, cm, 04/29/22 8:45:00 EST, [...] 06/29/2022 2:06 PM EST Plan of Treatment Health Maintenance Due Date Last Done Comments HIV Screening 1991 Hepatitis C Screening 1991 Varicella Vaccines (1 of 2 - 13+ 2-dose series) 09/07/2004 Hepatitis B Vaccines (1 of 3 - 19+ 3-dose series) 09/07/2010 DTaP,Tdap,and Td Vaccines (1 - Tdap) 09/07/2013 COVID-19 Vaccine (3 - 2023-2 5 season) 2024 06/09/2021, 04/17/2021 Influenza Vaccine (#1) 2024 , 07/03/2019 Alcohol/Substance Use Screening 06/07/2024 Depression Screening and Follow-Up 06/07/2024 Social Drivers of Health Annual Screening 06/07/2024 RSV Vaccine (60+ years old and patients) (1 - 1-dose 75+ series) 09/07/2066 Pneumococcal Vaccine: Pediatric (0-5 Years) and At-Risk Patients (6-64 Years) Aged Out No longer eligible based on patient's age to complete this topic Insurance [employer] Care Teams Crop Specialist Relationship Specialty Start Date End Date Santiago Villa [address] [place] [address] PCP - General Internal Medicine 06/29/22
--- OUTSIDE RECORDS SUMMARY | 2024-06-27 16:30 | XMS_ITS | Encounter Summary ---
Author Organization [facility] Address [address] [place] [address] Care Team Providers Care Brazing Furnace Operator Name Role Phone Santiago Villa Primary Care Provider [phone] Encounter Details Date Type Department Care Team (Late st Contact Info) Description 04/02/2022 Orders Only [facility] [address] [place] [id number] [address] Social History Tobacco Use Types Packs/Day Years Used Date Smoking Tobacco: Never Assessed Sex and Gender Information Value Date Recorded Sex Assigned at Not on file Legal Sex Male 12:34 PM EDT Gender Identity Not on file Sexual Orientation Not on file documented as of this encounter Plan of Treatment Not on file documented as of this encounter Procedures * Due to [facility] law, this organization might not be sharing negative HIV tests. Procedure Name Priority Date/Time Associated Diagnosis Comments AMB EXTERNAL CT HEAD, OUTSID E RESULT Routine 08/07/[address] HEAD, OUTSID E RESULT Routine 08/06/[address] HEAD, OUTSID E RESULT Routine 07/08/2021 AMB EXTERNAL MRI BRAIN, OUTS MARGI RESULT Routine 04/09/2020 documented in this encounter Results * Due to [place] [employer] law, this organization might not be sharing negative HIV tests. * CT Head, Outside Result (08/07/2021) Anatomical Region Laterality Modality Other [facility] AMB EXTERNAL RESULT PROCED URES Final Result * CT Head, Outside Result (08/06/2021) Anatomical Region Laterality Modality Other [facility] AMB EXTERNAL RESULT PROCED URES Final Result * CT Head, Outside Result (07/08/2021) Anatomical Region Laterality Modality Other Unknown Provider AMB EXTERNAL RESULT PROCEDUR ES Final Result * MRI Brain, Outside Result (04/09/2020) Anatomical Region Laterality Modality Other [facility] AMB EXTERNAL RESULT PROCEDURES Final Result documented in this encounter Visit Diagnoses Not on filedocumented in this encounter Care Teams Brazing Furnace Operator Relationship Specialty Start Date End Date Santiago Villa [address] [place] [id number] PCP - General Internal Medicine 06/29/22 documented as of this encounter
== END 2024-06-27 15:58 | disposition home or self-care (01) ==
PROVIDERS: Emergency Provider Emergency Medicine; PCP Psychiatry & Neurology Psychiatry
DX: F63.81 Intermittent explosive disorder (principal); R45.851 Suicidal ideations; Z51.81 Encounter for therapeutic drug level monitoring; F12.10 Cannabis abuse, uncomplicated; Z87.891 Personal history of nicotine dependence; Z79.899 Other long term (current) drug therapy
CPT/HCPCS: 36415; 80048; 80076; 80143; 80179; 80307; 81003; 85025; 99285; S9485

== ENCOUNTER 2024-12-23 19:59 | Emergency (ER) | payer MEDICAID, SELFPAY ==
[2024-12-23 20:11] VITALS: BP 133/87; BP 140/70; PULSE 82; PULSE 91; RESP 16; TEMP 36.6; O2SAT 98; O2SAT 99; BMI 22.6
[2024-12-23 20:34] LABS: MANUAL DIFF FLAG NO
[2024-12-23 20:43] LABS: Lithium 0.37 mmol/L (0.60-1.20)
[2024-12-23 20:50] LABS: Alanine Aminotransferase 11 U/L (0-40); Albumin Level 4.4 g/dL (3.5-5.0); Alkaline Phosphatase 46 U/L (39-117); Anion Gap 11 (12-20); Aspartate Amino Transferase 19 U/L (5-37); Blood Urea Nitrogen 13 mg/dL (9-16); Calcium 8.3 mg/dL (8.4-10.2); Carbon Dioxide 22 mmol/L (22-29); Chloride 110 mmol/L (96-108); Creatinine Clr Calc Pharmacy 91.6; Estimated Glomerular Filt Rate > 60; Potassium 3.5 mmol/L (3.3-5.1); Sodium 139 mmol/L (135-145); Total Protein 7.0 g/dL (6.5-8.0)
[2024-12-23 20:51] LABS: Hematocrit 32.4 % (42.0-52.0); Hemoglobin 11.6 g/dl (14.0-18.0); Imm Gran Abs Auto 0.01 X10*3/uL (0.00-0.03); Imm Gran Pct Auto 0.2 % (0.0-0.4); Lymphocytes Absolute Auto 2.5 X10*3/uL (1.2-4.9); Mean Corpuscular HGB Conc 35.8 g/dl (31.0-36.0); Mean Corpuscular Hemoglobin 32.3 pg (27.0-33.0); Mean Corpuscular Volume 90.3 fL (80.0-98.0); NRBC Abs Auto 0.000 X10*3/uL (0.0-0.012); NRBC Pct Auto 0.0 /100WBC (0.0-0.2); Platelet Count 240 X10*3/uL (160-400); Red Blood Count 3.59 X10*6/uL (4.60-5.80); White Blood Count 6.1 X10*3/uL (4.8-10.8)
--- NOTE | 2024-12-23 21:18 | PC.NURSE ---
Rober from pts residential called for an update. Update provided. Rober states to call him once pt is ready for discharged to be picked up. Rober can be reached at [phone].
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
--- NOTE | 2024-12-24 00:14 | PC.NURSE ---
Med req completed.
[2024-12-24 06:02] VITALS: RESP 16
--- NOTE | 2024-12-24 08:25 | PC.NURSE ---
Pt found covered in old and new urine in the bed; complete bed change performed and pt cleaned/redressed; pt able to provide a urine sample per orders
[2024-12-24 08:42] LABS: Appearance Urine Clear; Glucose Urine UA Negative (Negative); PH 7.0 (5.0-9.0); Specific Gravity - Urine 1.010 (1.005-1.025)
[2024-12-24 08:52] VITALS: BP 105/75; PULSE 85; RESP 16; TEMP 36.3; O2SAT 100
[2024-12-24 08:52] LABS: Cannabinoid Screen Urine Not Detected (Not Detect)
--- NOTE | 2024-12-24 11:14 | PHA.MEDREC ---
Addendum entered by Brielle Sharif formerly [facility] 12/24/24 16:45: ALF SENT MED LIST, UPDATED PER AUG Original Note: Pharmacy Consult ? Medication Reconciliation RN has completed the medication reconciliation, pharmacy reviewed. Contacted Rober from patients half-way to verify haldol dosing. Rober states that patient takes 5 mg in the morning and 15 mg at bedtime of haldol..
--- NOTE | 2024-12-24 12:35 | PC.NURSE ---
Staff from pt's long term brought in pt's demographics and med list for pt's record; copy of med rec faxed to pharmacy to assist with verification
--- NOTE | 2024-12-24 14:43 | HO.SUDE ---
Patient evaluated by the CARE Team, he does not need inpatient psychiatric treatment and is clear to discharge to his current providers. Mother and patient request return to [facility] tonight or in the morning, no need for further assessment. Dr. Ivan updated with plan.
--- NOTE | 2024-12-24 16:51 | PC.NURSE ---
Pt sleepy and slightly pale since this morning but states he feels fine ; pt appears paler and when asked if he feels ok, states no ; denies pain/nausea/dizziness; tech at bedside to check POC BG and vs (see flowsheet); will inform provider of pt's complaints
[2024-12-24 16:57] VITALS: BP 120/79; PULSE 68; RESP 17; TEMP 37.1; O2SAT 99
[2024-12-24 16:57] LABS: Glucose, Whole Blood 84 mg/dL (60-115)
[2024-12-24 17:45] LABS: Resp Syncy Virus RNA Qual PCR NEGATIVE (Negative); SARS COV2 PCR INHOUSE NEGATIVE (Negative)
--- NOTE | 2024-12-25 05:35 | PC.NURSE ---
approx 2121 pt medicated with PM meds. at that time requested gingerale and given. has been sleeping comfortably since, no events overnight, resp even and unlabored.
--- NOTE | 2024-12-25 07:00 | PC.NURSE ---
Assumed care of patient at 0645, patient appears to be in no apparent distress this am, sitting up in chair, eating breakfast, offering no complaints to this RN. Continue plan of care for planned d/c this am
[2024-12-25 07:03] VITALS: RESP 16
[2024-12-25 08:30] VITALS: BP 102/63; PULSE 74; RESP 15; O2SAT 99
[2024-12-25 10:09] VITALS: BP 102/63; PULSE 74; RESP 15; TEMP 37.1; O2SAT 99
== END 2024-12-25 10:09 | disposition home or self-care (01) ==
PROVIDERS: Emergency Medicine; Emergency Provider Emergency Medicine Emergency Medical Services
DX: F32.A Depression, unspecified (principal); R45.851 Suicidal ideations; F39 Unspecified mood [affective] disorder; F63.81 Intermittent explosive disorder; F79 Unspecified intellectual disabilities; Z87.891 Personal history of nicotine dependence; Z79.899 Other long term (current) drug therapy; Z03.818 Encounter for observation for suspected exposure to other biological agents ruled out
CPT/HCPCS: 36415; 80053; 80178; 80307; 81001; 82947; 85025; 87637; 99285; S9485